=== PATIENT | female | born 2000 | race Caucasian/White ===

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

== ENCOUNTER 2022-01-12 01:12 | Emergency (ER) | payer MEDICAID, SELFPAY ==
[2022-01-12 01:15] VITALS: PULSE 75; RESP 16; TEMP 36.4; O2SAT 98; BMI 38.9
[2022-01-12 01:24] VITALS: BP 124/68; PULSE 75; RESP 16; TEMP 36.4; O2SAT 98
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
--- NOTE | 2022-01-12 02:09 | RAD_ITS ---
EXAM: XR CHEST, 1 VIEW CLINICAL INDICATION: cough TECHNIQUE: Frontal view of the chest. This report was created using [email or web address] report generation technology. COMPARISON: None. FINDINGS: LUNGS AND PLEURAL SPACES: Discoid atelectasis at the periphery of left lower lobe versus scarring. No pneumothorax. No effusion. HEART: Unremarkable. Cardiac silhouette not enlarged. MEDIASTINUM: Central airways and mediastinal contour are unremarkable. BONES/JOINTS: Unremarkable. SOFT TISSUES: Unremarkable. RAD/Chest 1 View (Portable) IMPRESSION: No acute disease. Electronically Signed: Felton Junior MD at 2:35 EST ,
[2022-01-12 03:16] LABS: Mucous, Urine 0 SEEN /hpf (<or=2+); Red Blood Cells-Urine 0 SEEN /hpf (0-5); Squamous Epithelial Cells - UA 0 SEEN /hpf (5-10)
[2022-01-12 03:24] LABS: Color, Urine Yellow (Yellow); Glucose, Dipstick Normal (Normal); Ketone-Dipstick Negative (Negative); Leukocyte Esterase-Dipstick 100 /ul (Negative); Nitrite-Dipstick Negative (Negative); Occult Blood-Urine 25 /ul (Negative); Protein-Dipstick 15 mg/dl (Negative); Urine Bilirubin Dipstick Negative (Negative); Urine Clarity Clear (Clear); Urine Urobilinogen Normal (Normal)
[2022-01-12 03:58] LABS: Bacteria 2+ /hpf (None Seen); White Blood Cells 0-5 SEEN /hpf (0-5)
[2022-01-12 04:51] VITALS: PULSE 78; O2SAT 99
[2022-01-12 06:19] VITALS: BP 114/89; PULSE 74; PULSE 77; RESP 15; RESP 17; TEMP 36.5; O2SAT 98
== END 2022-01-12 23:59 | disposition home or self-care (01) ==
PROVIDERS: Emergency Provider Emergency Medicine; PCP Pediatrics; Visit Provider Emergency Medicine
DX: R53.83 Other fatigue (principal); G82.22 Paraplegia, incomplete; Z93.3 Colostomy status; J02.9 Acute pharyngitis, unspecified; R05.9 Cough, unspecified; Z20.822 Contact with and (suspected) exposure to COVID-19; Z87.891 Personal history of nicotine dependence; S12.9XXS Fracture of neck, unspecified, sequela; V89.2XXS Person injured in unspecified motor-vehicle accident, traffic, sequela
CPT/HCPCS: 71045; 81001; 87077; 87086; 87088; 87186; 87426; 87635; 99284; U0003; U0005

== ENCOUNTER 2022-01-21 14:05 | Emergency (ER) | payer MEDICAID, SELFPAY ==
[2022-01-21 14:09] VITALS: BP 110/52; PULSE 70; RESP 18; TEMP 36.2; BMI 38.0
--- NOTE | 2022-01-21 14:35 | EDS_ITS ---
HPI History of Present Illness Chief Complaint: Abscess Informant: patient Narrative Narrative: Patient states she was sent in by her mother secondary to development of multiple small abscesses over the last week and a half. She states she is first noted a lesion in her left nare a week and a half ago. Since then she has had a small pustule just beneath the right breast and one on either leg that has popped and drained. These are all healing. She has 1 small pustule noted on her right chest. She denies fever or chills. 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 She is not currently on any antibiotics. 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 Neck fracture New onset seizure Paraplegic spinal paralysis Single kidney Urinary tract infection Wounds, multiple Home Medications acetaminophen 650 mg PO Q4H PRN 07/17/21 [History Last Taken Unknown] bnazm-s-hbthzxkjaswin 1 tab PO DAILY 07/17/21 [History Last Taken Unknown] ascorbic acid (vitamin C) 500 mg PO BID 07/17/21 [History Last Taken Unknown] aspirin 81 mg PO DAILY 07/17/21 [History Last Taken Unknown] baclofen 40 mg PO TID 07/17/21 [History Last Taken Unknown] benzocaine-benzethonium 1 spray TOPICAL QWEEK 07/17/21 [History Last Taken Unknown] calcium carbonate-vitamin D3 [Calcium 500 + D] 2 tab PO BID 07/17/21 [History Last Taken Unknown] captopril 3.125 mg PO DAILY PRN PRN 07/17/21 [History Last Taken Unknown] cholecalciferol (vitamin D3) [Vitamin D3] 25 mcg PO DAILY 07/17/21 [History Last Taken Unknown] docusate sodium 100 mg PO TID 07/17/21 [History Last Taken Unknown] enoxaparin 40 mg SUBCUT Q12H 07/17/21 [History Last Taken Unknown] escitalopram oxalate 20 mg PO DAILY 07/17/21 [History Last Taken Unknown] famotidine [Pepcid] 20 mg PO BID 07/17/21 [History Last Taken Unknown] ferrous sulfate 325 mg PO TID 07/17/21 [History Last Taken Unknown] magnesium hydroxide 30 ml PO DAILY PRN 07/17/21 [History Last Taken Unknown] melatonin 6 mg PO QHS PRN PRN 07/17/21 [History Last Taken Unknown] multivitamin with minerals 1 tab PO DAILY 07/17/21 [History Last Taken Unknown] nitroglycerin 1 inch TRANSDERMAL PRN PRN 07/17/21 [History Last Taken Unknown] polyethylene glycol 3350 17 g PO BID 07/17/21 [History Last Taken Unknown] sennosides [senna] 17.2 mg PO BID 07/17/21 [History Last Taken Unknown] tizanidine 4 mg PO TID 07/17/21 [History Last Taken Unknown] zinc sulfate 220 mg PO BID 07/17/21 [History Last Taken Unknown] ondansetron 4 mg PO Q6H PRN PRN #20 tab 09/01/21 [Rx Last Taken Unknown] ciprofloxacin HCl 500 mg PO BID #14 tab 11/07/21 [Rx Last Taken Unknown] doxycycline hyclate 100 mg PO BID #14 cap 11/07/21 [Rx Last Taken Unknown] levetiracetam 750 mg PO BID #60 tab 11/07/21 [Rx Last Taken Unknown] methenamine hippurate [Hiprex] 1 g PO Q12H #180 tab 11/07/21 [Rx Last Taken Unknown] cephalexin 500 mg PO Q6 #40 cap 01/21/22 [Rx Last Taken Unknown] sulfamethoxazole-trimethoprim [Bactrim DS] 1 tab PO BID #20 tab 01/21/22 [Rx Last Taken Unknown] Allergy/AdvReac Type Severity Reaction Status Date / Time No Known Allergies Allergy Verified 11/10/21 21:42 Surgical History H/O thumb surgery S/P cervical spinal fusion Social History household members: family Smoking Status: Former smoker alcohol intake: never substance use type: does not use ROS ROS ED Constitutional Constitutional ED: Denies chills or fever(s) Eyes Eyes: Denies blurry vision or change in vision ENT ENT ED: Denies ear pain Cardiovascular Cardiovascular: Denies chest pain or palpitations Respiratory/Chest Respiratory/Chest: Denies cough or dyspnea Gastrointestinal Gastrointestinal: Denies abdominal pain, diarrhea or vomiting Integumentary Reports abscess Neurologic Neurologic: Denies headache(s) Allergic/Immunologic Allergic/Immunologic ED: Denies urticaria EXAM Physical Exam Const Vital Signs: 01/21/22 14:09 Temperature 97.1 F L Temperature Source Temporal Pulse Rate 70 Respiratory Rate 18 Blood Pressure 110/52 L Blood Pressure Mean 71 Oxygen Delivery Method Room Air Positive well nourished and well developed General Appearance ED: well developed HEENT Reports moist mucous membranes Eyes PERRL and EOMs intact bilaterally Neck supple Chest Wall inspection of chest normal and palpation of chest normal Resp normal respiratory effort and clear to auscultation bilaterally Cardio regular rate and regular rhythm GI non-tender Palpation: soft Narrative: Patient does have some small pressure sores noted on the buttocks. Sacral ulcer wound is healing and well with no sign of acute infection. Neuro oriented x3 Sensorium / Orientation: alert Skin Skin Narrative: Patient with a small 4 mm pustule on the right chest wall. No surrounding cellulitis. Small area of dry skin consistent with healing ulcer noted on either lower leg. No sign of infection. MDM MDM MDM Narrative Medical decision making narrative: Chest wall pustule opened with needle and wound culture sent. Treatment and Re-Evaluation Comments:: Patient be treated with Bactrim and Keflex, first dose is given here. Discharge Plan Triage Chief Complaint: Abscess ED Provider: Bethany Saavedra Dx/Rx/DC Orders Clinical Impression: Abscess Instructions: ED Abscess Antibiotic Treatment Only Prescriptions: New sulfamethoxazole-trimethoprim [Bactrim DS] 800-160 mg tablet 1 tab PO BID Qty: 20 RF: 0 cephalexin 500 mg capsule 500 mg PO Q6 Qty: 40 RF: 0 No Action sennosides [senna] 8.6 mg Tablet 17.2 mg PO BID RF: 0 acetaminophen 325 mg Tablet 650 mg PO Q4H PRN (Reason: pain/fever) RF: 0 polyethylene glycol 3350 17 gram Powder In Packet 17 g PO BID RF: 0 aspirin 81 mg Tablet,Delayed Release (Dr/Ec) 81 mg PO DAILY RF: 0 baclofen 20 mg Tablet 40 mg PO TID RF: 0 magnesium hydroxide 400 mg/5 mL Suspension 30 ml PO DAILY PRN (Reason: Constipation) RF: 0 ascorbic acid (vitamin C) 500 mg Tablet 500 mg PO BID RF: 0 nitroglycerin 2 % Ointment 1 inch TRANSDERMAL PRN PRN (Reason: autonomic dysreflexia) RF: 0 multivitamin with minerals Tablet 1 tab PO DAILY RF: 0 zinc sulfate 220 mg Capsule 220 mg PO BID RF: 0 cholecalciferol (vitamin D3) [Vitamin D3] 25 mcg (1,000 unit) Capsule 25 mcg PO DAILY RF: 0 tizanidine 4 mg Capsule 4 mg PO TID RF: 0 melatonin 12 mg Tablet 6 mg PO QHS PRN PRN (Reason: Insomnia) RF: 0 [id number] Tablet 1 tab PO DAILY RF: 0 famotidine [Pepcid] 20 mg Tablet 20 mg PO BID RF: 0 captopril 12.5 mg Tablet 3.125 mg PO DAILY PRN PRN (Reason: autonomic dysreflexia) RF: 0 docusate sodium 100 mg Capsule 100 mg PO TID RF: 0 ferrous sulfate 325 mg (65 mg iron) Capsule, Extended Release 325 mg PO TID RF: 0 enoxaparin 40 mg/0.4 mL Syringe 40 mg SUBCUT Q12H RF: 0 escitalopram oxalate 20 mg Tablet 20 mg PO DAILY RF: 0 calcium carbonate-vitamin D3 [Calcium 500 + D] 500 mg(1,250mg) -200 unit Tablet 2 tab PO BID RF: 0 benzocaine-benzethonium 20-0.2 % Aerosol 1 spray TOPICAL QWEEK RF: 0 ondansetron 4 MG tablet 4 mg PO Q6H PRN PRN (Reason: Nausea) Qty: 20 RF: 0 ciprofloxacin HCl 500 mg tablet 500 mg PO BID Qty: 14 RF: 0 methenamine hippurate [Hiprex] 1 gram tablet 1 g PO Q12H Qty: 180 RF: 1 doxycycline hyclate 100 mg capsule 100 mg PO BID Qty: 14 RF: 0 levetiracetam 750 mg Tablet 750 mg PO BID Qty: 60 RF: 2 Primary Care Provider: Edgard Amato Referrals: Edgard Amato MD [Primary Care Provider] - 1 Week if not improving Disposition Disposition: Home, Self Care
[2022-01-21] MEDS: Smz/Tmp Ds Tablet 1 TABLET PO (14:47)
[2022-01-21] MEDS: Cephalexin 250 MG Capsule 500 MG PO (14:48)
[2022-01-21 14:49] VITALS: BP 137/63; PULSE 84; RESP 18
--- NOTE | 2022-01-21 15:15 | NURSING ---
CALLED [facility], ETA IS 90 MIN
== END 2022-01-21 17:37 | disposition home or self-care (01) ==
PROVIDERS: Emergency Provider Emergency Medicine; PCP Pediatrics; Visit Provider Emergency Medicine
DX: L08.9 Local infection of the skin and subcutaneous tissue, unspecified (principal); Z93.3 Colostomy status; L89.319 Pressure ulcer of right buttock, unspecified stage; L89.329 Pressure ulcer of left buttock, unspecified stage; L89.159 Pressure ulcer of sacral region, unspecified stage; Z79.82 Long term (current) use of aspirin; Z79.899 Other long term (current) drug therapy; Z87.891 Personal history of nicotine dependence
CPT/HCPCS: 87070; 87077; 87186; 87205; 99285

== ENCOUNTER 2022-03-09 15:26 | Emergency (ER) | payer MEDICAID, SELFPAY ==
[2022-03-09 15:29] VITALS: BP 114/69; PULSE 83; RESP 16; TEMP 36.3; O2SAT 97; BMI 35.2
--- NOTE | 2022-03-09 15:36 | EDS_ITS ---
HPI History of Present Illness Chief Complaint: Ma C/O Informant: patient Onset/Context/Timing Onset: Today Current Severity: Mild Worsened by: nothing Relieved by: nothing Associated Symptoms Associated Symptoms: none Narrative Narrative: Patient presents for bleeding in her Ma catheter site. She is paraplegic and has a chronic indwelling Ma. This was exchanged last week. She also had her last menstrual period last week. She presents from home for bleeding at the catheter site. She has no pain or other complaints. No traumas. No history with bleeding in the past. No trouble with her urine draining. No blood in her urine. 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 Neck fracture New onset seizure Paraplegic spinal paralysis Single kidney Urinary tract infection Wounds, multiple Home Medications acetaminophen 650 mg PO Q4H PRN 07/17/21 [History Last Taken Unknown] ctfsm-k-gannrgavgtyvg 1 tab PO DAILY 07/17/21 [History Last Taken Unknown] ascorbic acid (vitamin C) 500 mg PO BID 07/17/21 [History Last Taken Unknown] aspirin 81 mg PO DAILY 07/17/21 [History Last Taken Unknown] baclofen 40 mg PO TID 07/17/21 [History Last Taken Unknown] benzocaine-benzethonium 1 spray TOPICAL QWEEK 07/17/21 [History Last Taken Unknown] calcium carbonate-vitamin D3 [Calcium 500 + D] 2 tab PO BID 07/17/21 [History Last Taken Unknown] captopril 3.125 mg PO DAILY PRN PRN 07/17/21 [History Last Taken Unknown] cholecalciferol (vitamin D3) [Vitamin D3] 25 mcg PO DAILY 07/17/21 [History Last Taken Unknown] docusate sodium 100 mg PO TID 07/17/21 [History Last Taken Unknown] enoxaparin 40 mg SUBCUT Q12H 07/17/21 [History Last Taken Unknown] escitalopram oxalate 20 mg PO DAILY 07/17/21 [History Last Taken Unknown] famotidine [Pepcid] 20 mg PO BID 07/17/21 [History Last Taken Unknown] ferrous sulfate 325 mg PO TID 07/17/21 [History Last Taken Unknown] magnesium hydroxide 30 ml PO DAILY PRN 07/17/21 [History Last Taken Unknown] melatonin 6 mg PO QHS PRN PRN 07/17/21 [History Last Taken Unknown] multivitamin with minerals 1 tab PO DAILY 07/17/21 [History Last Taken Unknown] nitroglycerin 1 inch TRANSDERMAL PRN PRN 07/17/21 [History Last Taken Unknown] polyethylene glycol 3350 17 g PO BID 07/17/21 [History Last Taken Unknown] sennosides [senna] 17.2 mg PO BID 07/17/21 [History Last Taken Unknown] tizanidine 4 mg PO TID 07/17/21 [History Last Taken Unknown] zinc sulfate 220 mg PO BID 07/17/21 [History Last Taken Unknown] ondansetron 4 mg PO Q6H PRN PRN #20 tab 09/01/21 [Rx Last Taken Unknown] ciprofloxacin HCl 500 mg PO BID #14 tab 11/07/21 [Rx Last Taken Unknown] doxycycline hyclate 100 mg PO BID #14 cap 11/07/21 [Rx Last Taken Unknown] levetiracetam 750 mg PO BID #60 tab 11/07/21 [Rx Last Taken Unknown] methenamine hippurate [Hiprex] 1 g PO Q12H #180 tab 11/07/21 [Rx Last Taken Unknown] cephalexin 500 mg PO Q6 #40 cap 01/21/22 [Rx Last Taken Unknown] sulfamethoxazole-trimethoprim [Bactrim DS] 1 tab PO BID #20 tab 01/21/22 [Rx Las t Taken Unknown] Allergy/AdvReac Type Severity Reaction Status Date / Time No Known Allergies Allergy Verified 11/10/21 21:42 Surgical History H/O thumb surgery S/P cervical spinal fusion Social History household members: family Smoking Status: Former smoker alcohol intake: never substance use type: does not use ROS ROS ED Constitutional Constitutional ED: Denies chills or fever(s) Eyes Eyes: Denies change in vision ENT ENT ED: Denies ear pain Cardiovascular Cardiovascular: Denies chest pain Respiratory/Chest Respiratory/Chest: Denies dyspnea Gastrointestinal Gastrointestinal: Denies abdominal pain, constipation, diarrhea, melena, nausea or vomiting Genitourinary Genitourinary ED: Denies dysuria, hematuria or urinary frequency Musculoskeletal Musculoskeletal: Denies arthralgias or myalgias Integumentary Denies abscess or rash Neurologic Neurologic: Denies headache(s) Psychiatric Psychiatric: Denies depression Endocrine Endocrinology: Denies polyuria Allergic/Immunologic Allergic/Immunologic ED: Denies urticaria EXAM Physical Exam Const Vital Signs: 03/09/22 15:29 Temperature 97.3 F L Temperature Source Temporal Pulse Rate 83 Respiratory Rate 16 Blood Pressure 114/69 Blood Pressure Mean 84 Pulse Ox 97 Oxygen Delivery Method Room Air Positive well nourished and well developed General Appearance ED: well developed HEENT Negative for trauma Eyes EOMs intact bilaterally Neck supple Chest Wall inspection of chest normal Resp normal respiratory effort Cardio regular rate GI normal to inspection, nondistended, normoactive bowel sounds Narrative: Chaperoned by Reyna and Liat RNs. Ma catheter is in place and appears normal, clean, dry, intact, there is no bleeding or discharge at the ureteral meatus. She does have some mild vaginal bleeding noted. Otherwise exam is unremarkable. Back/Spine no CVA tenderness Extremity normal to inspection Extremity Narrative: Spastic and rigid bilaterally Neuro oriented x3 Sensorium / Orientation: alert Skin no rashes or lesions noted MDM MDM MDM Narrative Medical decision making narrative: hCG test was negative. Urinalysis showed white cells but 0-5 red cells. I believe the bleeding is exclusively vaginal. It all started today. It does not seem to be excessive bleeding. The patient has normal vital signs. I do not believe there is any indication for further emergent diagnostic testing. If the patient has continued bleeding, increasing bleeding, or any other new or worsening issues, she will follow-up with the ER or PCP. Her urine did show 25-50 white cells, negative nitrites. This is what her urinalysis typically shows. She does not feel it is an infection. No fevers. No pain. We will send a culture but will not start antibiotics at this time. She will follow-up. Impression #1 vaginal bleeding Impression #2 chronic indwelling Ma catheter Disposition is discharged home. Lab Data Attestation: I reviewed the patient's lab results. Labs: Laboratory Results - last 24 hr 03/09/22 16:43 Urine Color Yellow Urine Clarity Cloudy Urine pH 6.0 Ur Specific [place] 1.025 Urine Protein 30 H Urine Glucose (UA) Normal Urine Ketones 5 H Urine Occult Blood 50 H Urine Nitrite Negative Urine Bilirubin Negative Urine Urobilinogen Normal Ur Leukocyte Esterase 500 H Urine RBC 0-5 SEEN Urine WBC 25-50 SEEN Ur Squamous Epith Cells 0 SEEN Calcium Oxalate Crystal RARE Urine Bacteria 1+ Urine Mucus 0 SEEN Urine Test Negative Discharge Plan Triage Chief Complaint: Ma C/O ED Provider: Morris Blanchard Dx/Rx/DC Orders Instructions: ED Dysfunctional Uterine Bleeding Prescriptions: No Action sennosides [senna] 8.6 mg Tablet 17.2 mg PO BID RF: 0 acetaminophen 325 mg Tablet 650 mg PO Q4H PRN (Reason: pain/fever) RF: 0 polyethylene glycol 3350 17 gram Powder In Packet 17 g PO BID RF: 0 aspirin 81 mg Tablet,Delayed Release (Dr/Ec) 81 mg PO DAILY RF: 0 baclofen 20 mg Tablet 40 mg PO TID RF: 0 magnesium hydroxide 400 mg/5 mL Suspension 30 ml PO DAILY PRN (Reason: Constipation) RF: 0 ascorbic acid (vitamin C) 500 mg Tablet 500 mg PO BID RF: 0 nitroglycerin 2 % Ointment 1 inch TRANSDERMAL PRN PRN (Reason: autonomic dysreflexia) RF: 0 multivitamin with minerals Tablet 1 tab PO DAILY RF: 0 zinc sulfate 220 mg Capsule 220 mg PO BID RF: 0 cholecalciferol (vitamin D3) [Vitamin D3] 25 mcg (1,000 unit) Capsule 25 mcg PO DAILY RF: 0 tizanidine 4 mg Capsule 4 mg PO TID RF: 0 melatonin 12 mg Tablet 6 mg PO QHS PRN PRN (Reason: Insomnia) RF: 0 [id number]-[id number] Tablet 1 tab PO DAILY RF: 0 famotidine [Pepcid] 20 mg Tablet 20 mg PO BID RF: 0 captopril 12.5 mg Tablet 3.125 mg PO DAILY PRN PRN (Reason: autonomic dysreflexia) RF: 0 docusate sodium 100 mg Capsule 100 mg PO TID RF: 0 ferrous sulfate 325 mg (65 mg iron) Capsule, Extended Release 325 mg PO TID RF: 0 enoxaparin 40 mg/0.4 mL Syringe 40 mg SUBCUT Q12H RF: 0 escitalopram oxalate 20 mg Tablet 20 mg PO DAILY RF: 0 calcium carbonate-vitamin D3 [Calcium 500 + D] 500 mg(1,250mg) -200 unit T ablet 2 tab PO BID RF: 0 benzocaine-benzethonium 20-0.2 % Aerosol 1 spray TOPICAL QWEEK RF: 0 ondansetron 4 MG tablet 4 mg PO Q6H PRN PRN (Reason: Nausea) Qty: 20 RF: 0 ciprofloxacin HCl 500 mg tablet 500 mg PO BID Qty: 14 RF: 0 methenamine hippurate [Hiprex] 1 gram tablet 1 g PO Q12H Qty: 180 RF: 1 doxycycline hyclate 100 mg capsule 100 mg PO BID Qty: 14 RF: 0 levetiracetam 750 mg Tablet 750 mg PO BID Qty: 60 RF: 2 sulfamethoxazole-trimethoprim [Bactrim DS] 800-160 mg tablet 1 tab PO BID Qty: 20 RF: 0 cephalexin 500 mg capsule 500 mg PO Q6 Qty: 40 RF: 0 Primary Care Provider: Edgard Amato Referrals: Edgard Amato MD [Primary Care Provider] - Disposition Disposition: Home, Self Care
[2022-03-09 16:47] LABS: Mucous, Urine 0 SEEN /hpf (<or=2+); Squamous Epithelial Cells - UA 0 SEEN /hpf (5-10)
[2022-03-09 16:50] LABS: Color, Urine Yellow (Yellow); Glucose, Dipstick Normal (Normal); Ketone-Dipstick 5 mg/dl (Negative); Leukocyte Esterase-Dipstick 500 /ul (Negative); Nitrite-Dipstick Negative (Negative); Occult Blood-Urine 50 /ul (Negative); Protein-Dipstick 30 mg/dl (Negative); Specific Gravity, Urine 1.025 (1.002-1.030); Urine Bilirubin Dipstick Negative (Negative); Urine Clarity Cloudy (Clear); Urine Urobilinogen Normal (Normal)
[2022-03-09 16:53] LABS: Internal QC Validated? YES +Cl - CLEAR BKGD; Pregnancy, Urine Negative Negative
[2022-03-09 17:05] LABS: White Blood Cells 25-50 SEEN /hpf (0-5)
[2022-03-09 17:06] LABS: Calcium Oxalate Crystals Ur RARE /hpf (<or=2+); Red Blood Cells-Urine 0-5 SEEN /hpf (0-5)
[2022-03-09 17:07] LABS: Bacteria 1+ /hpf (None Seen)
[2022-03-09 17:46] VITALS: PULSE 85; RESP 17; O2SAT 98
== END 2022-03-09 18:31 | disposition home or self-care (01) ==
PROVIDERS: Emergency Provider Emergency Medicine; PCP Pediatrics; Visit Provider Emergency Medicine
DX: N93.9 Abnormal uterine and vaginal bleeding, unspecified (principal); G82.20 Paraplegia, unspecified; Z93.3 Colostomy status; Z79.01 Long term (current) use of anticoagulants; Z79.82 Long term (current) use of aspirin; Z79.899 Other long term (current) drug therapy; Z87.891 Personal history of nicotine dependence
CPT/HCPCS: 51702; 81001; 81025; 87077; 87086; 87088; 87186; 99285

== ENCOUNTER 2022-04-17 23:07 | Emergency (ER) | payer MEDICAID, SELFPAY ==
[2022-04-17 23:07] VITALS: BP 110/61; PULSE 84; RESP 16; TEMP 36.4; O2SAT 98; BMI 39.1
--- NOTE | 2022-04-17 23:11 | EDS_ITS ---
HPI History of Present Illness Chief Complaint: Rash Informant: patient Narrative Narrative: 21-year-old female paraplegic is presenting to the emergency room for rash. She states that she had a similar rash on her chest last month that turned into an abscess that needed to be drained. She notes that she chronically has small bumps on her arms and her legs. There are a few that are turning into pimples that she describes on the right leg. 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 Neck fracture New onset seizure Paraplegic spinal paralysis Single kidney Urinary tract infection Wounds, multiple Home Medications acetaminophen 650 mg PO Q4H PRN 07/17/21 [History Last Taken Unknown] [id number]-n-[id number] 1 tab PO DAILY 07/17/21 [History Last Taken Unknown] ascorbic acid (vitamin C) 500 mg PO BID 07/17/21 [History Last Taken Unknown] aspirin 81 mg PO DAILY 07/17/21 [History Last Taken Unknown] baclofen 40 mg PO TID 07/17/21 [History Last Taken Unknown] benzocaine-benzethonium 1 spray TOPICAL QWEEK 07/17/21 [History Last Taken Unk nown] calcium carbonate-vitamin D3 [Calcium 500 + D] 2 tab PO BID 07/17/21 [History Last Taken Unknown] captopril 3.125 mg PO DAILY PRN PRN 07/17/21 [History Last Taken Unknown] cholecalciferol (vitamin D3) [Vitamin D3] 25 mcg PO DAILY 07/17/21 [History Last Taken Unknown] docusate sodium 100 mg PO TID 07/17/21 [History Last Taken Unknown] enoxaparin 40 mg SUBCUT Q12H 07/17/21 [History Last Taken Unknown] escitalopram oxalate 20 mg PO DAILY 07/17/21 [History Last Taken Unknown] famotidine [Pepcid] 20 mg PO BID 07/17/21 [History Last Taken Unknown] ferrous sulfate 325 mg PO TID 07/17/21 [History Last Taken Unknown] magnesium hydroxide 30 ml PO DAILY PRN 07/17/21 [History Last Taken Unknown] melatonin 6 mg PO QHS PRN PRN 07/17/21 [History Last Taken Unknown] multivitamin with minerals 1 tab PO DAILY 07/17/21 [History Last Taken Unknown] nitroglycerin 1 inch TRANSDERMAL PRN PRN 07/17/21 [History Last Taken Unknown] polyethylene glycol 3350 17 g PO BID 07/17/21 [History Last Taken Unknown] sennosides [senna] 17.2 mg PO BID 07/17/21 [History Last Taken Unknown] tizanidine 4 mg PO TID 07/17/21 [History Last Taken Unknown] zinc sulfate 220 mg PO BID 07/17/21 [History Last Taken Unknown] ondansetron 4 mg PO Q6H PRN PRN #20 tab 09/01/21 [Rx Last Taken Unknown] ciprofloxacin HCl 500 mg PO BID #14 tab 11/07/21 [Rx Last Taken Unknown] doxycycline hyclate 100 mg PO BID #14 cap 11/07/21 [Rx Last Taken Unknown] levetiracetam 750 mg PO BID #60 tab 11/07/21 [Rx Last Taken Unknown] methenamine hippurate [Hiprex] 1 g PO Q12H #180 tab 11/07/21 [Rx Last Taken Unknown] cephalexin 500 mg PO Q6 #40 cap 01/21/22 [Rx Last Taken Unknown] sulfamethoxazole-trimethoprim [Bactrim DS] 1 tab PO BID #20 tab 01/21/22 [Rx Last Taken Unknown] cephalexin 500 mg PO Q6 #40 capsule 04/17/22 [Rx Last Taken Unknown] sulfamethoxazole-trimethoprim [Bactrim DS] 1 tab PO BID #20 tab 04/17/22 [Rx Last Taken Unknown] Allergy/AdvReac Type Severity Reaction Status Date / Time No Known Allergies Allergy Verified 04/17/22 23:09 Surgical History H/O thumb surgery S/P cervical spinal fusion Social History household members: family Smoking Status: Former smoker alcohol intake: never substance use type: does not use ROS ROS ED Constitutional Constitutional ED: Denies chills or weight loss Eyes Eyes: Denies change in vision or diplopia ENT ENT ED: Denies ear pain, rhinorrhea or sore throat Cardiovascular Cardiovascular: Denies chest pain, orthopnea, palpitations or racing heartbeat Respiratory/Chest Respiratory/Chest: Denies cough, dyspnea or orthopnea Gastrointestinal Gastrointestinal: Denies abdominal pain, diarrhea, nausea or vomiting Genitourinary Genitourinary ED: Denies dysuria, hematuria or urinary frequency Musculoskeletal Musculoskeletal: Denies arthralgias or myalgias Integumentary Reports rash; Denies abscess Neurologic Neurologic: Denies headache(s) or weakness Psychiatric Psychiatric: Denies anxiety, depression, suicidal ideation or suicidal thoughts Endocrine Endocrinology: Denies polydipsia, polyphagia or polyuria Allergic/Immunologic Allergic/Immunologic ED: Denies mouth swelling, tongue swelling or urticaria EXAM Physical Exam Const Vital Signs: 04/17/22 23:07 Temperature 97.6 F L Temperature Source Temporal Pulse Rate 84 Respiratory Rate 16 Blood Pressure 110/61 Blood Pressure Mean 77 Pulse Ox 98 Oxygen Delivery Method Room Air Positive well nourished and well developed General Appearance ED: well developed HEENT Reports normocephalic, head/scalp atraumatic, TM's clear and moist mucous membranes Negative for trauma Tympanic Membrane ED: Yes TM's clear Eyes PERRL and EOMs intact bilaterally Neck no lymphadenopathy, supple and no JVD Resp normal respiratory effort and clear to auscultation bilaterally Cardio regular rate, regular rhythm and no murmurs GI normal to inspection, nondistended, normoactive bowel sounds and non-tender Palpation: soft Back/Spine no CVA tenderness and normal ROM Extremity normal to inspection General Extremety ED: Negative for edema General Extremity: Negative for edema Neuro oriented x3 and CN's II-XII intact bilaterally Sensorium / Orientation: alert Psych mental status grossly normal Mood & Affect: Negative for depressed or tearful Skin no wounds Skin Narrative: Patient has changes of the skin similar to keratosis pilaris and there are approximately 4 small pustules with hair coming out of them representing folliculitis. MDM MDM MDM Narrative Medical decision making narrative: Because of the reported history of presumed MRSA going to write both Keflex and Bactrim. We talked about using a exfoliator at bath time and hydrating the skin with lotion. Return if worsening or concerns Discharge Plan Triage Chief Complaint: Rash ED Provider: Morris Wiggins Dx/Rx/DC Orders Clinical Impression: Keratosis pilaris, Folliculitis Instructions: ED Folliculitis Prescriptions: New sulfamethoxazole-trimethoprim [Bactrim DS] 800-160 mg tablet 1 tab PO BID Qty: 20 RF: 0 cephalexin [cephalexin] 500 MG capsule 500 mg PO Q6 Qty: 40 RF: 0 No Action sennosides [senna] 8.6 mg Tablet 17.2 mg PO BID RF: 0 acetaminophen 325 mg Tablet 650 mg PO Q4H PRN (Reason: pain/fever) RF: 0 polyethylene glycol 3350 17 gram Powder In Packet 17 g PO BID RF: 0 aspirin 81 mg Tablet,Delayed Release (Dr/Ec) 81 mg PO DAILY RF: 0 baclofen 20 mg Tablet 40 mg PO TID RF: 0 magnesium hydroxide 400 mg/5 mL Suspension 30 ml PO DAILY PRN (Reason: Constipation) RF: 0 ascorbic acid (vitamin C) 500 mg Tablet 500 mg PO BID RF: 0 nitroglycerin 2 % Ointment 1 inch TRANSDERMAL PRN PRN (Reason: autonomic dysreflexia) RF: 0 multivitamin with minerals Tablet 1 tab PO DAILY RF: 0 zinc sulfate 220 mg Capsule 220 mg PO BID RF: 0 cholecalciferol (vitamin D3) [Vitamin D3] 25 mcg (1,000 unit) Capsule 25 mcg PO DAILY RF: 0 tizanidine 4 mg Capsule 4 mg PO TID RF: 0 melatonin 12 mg Tablet 6 mg PO QHS PRN PRN (Reason: Insomnia) RF: 0 hsfcm-c-fugsbmtybqifs Tablet 1 tab PO DAILY RF: 0 famotidine [Pepcid] 20 mg Tablet 20 mg PO BID RF: 0 captopril 12.5 mg Tablet 3.125 mg PO DAILY PRN PRN (Reason: autonomic dysreflexia) RF: 0 docusate sodium 100 mg Capsule 100 mg PO TID RF: 0 ferrous sulfate 325 mg (65 mg iron) Capsule, Extended Release 325 mg PO TID RF: 0 enoxaparin 40 mg/0.4 mL Syringe 40 mg SUBCUT Q12H RF: 0 escitalopram oxalate 20 mg Tablet 20 mg PO DAILY RF: 0 calcium carbonate-vitamin D3 [Calcium 500 + D] 500 mg(1,250mg) -200 unit Tablet 2 tab PO BID RF: 0 benzocaine-benzethonium 20-0.2 % Aerosol 1 spray TOPICAL QWEEK RF: 0 ondansetron 4 MG tablet 4 mg PO Q6H PRN PRN (Reason: Nausea) Qty: 20 RF: 0 ciprofloxacin HCl 500 mg tablet 500 mg PO BID Qty: 14 RF: 0 methenamine hippurate [Hiprex] 1 gram tablet 1 g PO Q12H Qty: 180 RF: 1 doxycycline hyclate 100 mg capsule 100 mg PO BID Qty: 14 RF: 0 levetiracetam 750 mg Tablet 750 mg PO BID Qty: 60 RF: 2 sulfamethoxazole-trimethoprim [Bactrim DS] 800-160 mg tablet 1 tab PO BID Qty: 20 RF: 0 cephalexin 500 mg capsule 500 mg PO Q6 Qty: 40 RF: 0 Primary Care Provider: Edgard Amato Referrals: Edgard Amato MD [Primary Care Provider] - As Needed Activity Restrictions/Additional Instructions: As discussed using an exfoliate her scrub on your arms and legs and aggressive moisturizing may help. Disposition Disposition: Home, Self Care
[2022-04-17 23:17] VITALS: BP 110/61; PULSE 84; RESP 16; O2SAT 98
[2022-04-17] MEDS: Smz/Tmp Ds Tablet 1 TABLET PO (23:37)
[2022-04-17] MEDS: Cephalexin 250 MG Capsule 500 MG PO (23:37)
== END 2022-04-18 03:42 | disposition home or self-care (01) ==
LOC: ED 23:21
PROVIDERS: Emergency Provider Emergency Medicine; PCP Pediatrics; Visit Provider Emergency Medicine
DX: L85.8 Other specified epidermal thickening (principal); G82.20 Paraplegia, unspecified; Z93.3 Colostomy status; L73.9 Follicular disorder, unspecified; Z79.82 Long term (current) use of aspirin; Z79.899 Other long term (current) drug therapy; Z87.891 Personal history of nicotine dependence
CPT/HCPCS: 99285

== ENCOUNTER 2022-04-27 18:05 | Emergency (ER) | payer MEDICAID, SELFPAY ==
[2022-04-27 18:06] VITALS: BP 101/73; PULSE 85; RESP 18; TEMP 37; O2SAT 99; BMI 37.8
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
[2022-04-27] MEDS: Ondansetron 4 MG/2 ML Vial IV (19:10)
[2022-04-27 19:14] LABS: Absolute Lymphocyte Count 1.92 X10^3/uL (0.83-4.51); Absolute Neutrophil Count 4.1 X10^3/uL (2.0-7.7); Basophil# 0.02 X10^3/uL; Basophil% 0.3 % (0-1); Eosinophil# 0.11 X10^3/uL; Eosinophils% 1.7 % (0-5); Hemoglobin 12.7 g/dL (12.0-15.0); Lymphocyte # 1.92 X10^3/ul (0.83-4.51); Lymphocyte % 29.6 % (19-41); Mean Corp Hgb Conc 32.6 g/dL (32-36); Mean Corpuscular Hgb 28.9 pg (27.0-32.0); Mean Corpuscular Volume 88.8 fL (81-99); Mean Platelet Vol. 10.5 fl (6.2-12.0); Monocyte# 0.31 X10^3/uL; Monocyte% 4.8 % (0-10); NRBC Flagged by Analyzer 0 % (0-5); Neutrophil % 63.3 % (47-70); Platelet Count 285 K/mm3 (150-450); RBC Distribution Width CV 13.9 % (11.6-14.6); RBC Distribution Width SD 45.2 fl (35.1-43.9); Red Blood Count 4.39 M/mm3 (4.2-5.4); White Blood Count 6.5 K/mm3 (4.4-11.0)
--- NOTE | 2022-04-27 19:18 | NURSING ---
gross bag changed for clean urine sample
[2022-04-27 19:44] LABS: ALB/GLOB Ratio 0.8 RATIO (0.9-2.4); AST(SGOT) 26 U/L (15-37); Alanine Aminotransfer ALT/SGPT 26 U/L (13-56); Albumin, Serum 3.4 g/dL (3.2-5.0); Alkaline Phosphatase 85 U/L (45-117); Anion Gap 5 (5-15); BUN 12 mg/dL (7-18); BUN/Creat Ratio 12.7 RATIO (10-20); Calcium,Total 9.4 mg/dL (8.5-10.1); Chloride 108 mmol/L (98-107); Creatinine, Serum 0.95 mg/dL (0.55-1.02); EST Glomerular Filtration Rate 81 mL/min (>60); Est Glom Filt Rate - Afr Amer 98 mL/min (>60); Estimated Creatinine Clearance 89.17 ml/min; Globulin 4.1 g/dL (2.2-4.2); Glucose 95 mg/dL (74-106); Potassium 5.2 mmol/L (3.5-5.1); Protein, Total 7.5 g/dL (6.4-8.2); Sodium Level 138 mmol/L (136-145)
[2022-04-27 20:06] VITALS: RESP 18; O2SAT 96
[2022-04-27 20:40] LABS: Mucous, Urine 0 SEEN /hpf (<or=2+); Squamous Epithelial Cells - UA 0 SEEN /hpf (5-10)
[2022-04-27 20:53] LABS: Color, Urine Yellow (Yellow); Glucose, Dipstick Normal (Normal); Ketone-Dipstick 5 mg/dl (Negative); Leukocyte Esterase-Dipstick 100 /ul (Negative); Nitrite-Dipstick Negative (Negative); Occult Blood-Urine 250 /ul (Negative); Protein-Dipstick 30 mg/dl (Negative); Urine Bilirubin Dipstick Negative (Negative); Urine Clarity Clear (Clear); Urine Urobilinogen Normal (Normal)
[2022-04-27 20:56] LABS: Bacteria 1+ /hpf (None Seen); Internal QC Validated? YES +Cl - CLEAR BKGD; Pregnancy, Urine Negative Negative; Red Blood Cells-Urine 25-50 SEEN /hpf (0-5); White Blood Cells 5-10 SEEN /hpf (0-5)
[2022-04-27 21:08] LABS: Amphetamine Urine VISTA NEGATIVE (<1000 ng/mL); Barbiturate Urine VISTA NEGATIVE (< 200 ng/mL); Benzodiazepine Urine VISTA NEGATIVE (< 200 ng/mL); Cocaine Urine VISTA NEGATIVE (< 300 ng/mL); Ecstacy Urine VISTA NEGATIVE (< 500 ng/mL); Methadone Urine VISTA NEGATIVE (< 300 ng/mL); PCP Urine VISTA NEGATIVE (< 25 ng/mL); THC Urine VISTA NEGATIVE (< 50 ng/mL); Vista UDS pH Range 7
[2022-04-27 22:27] VITALS: BP 97/70; PULSE 77; RESP 16; O2SAT 97
== END 2022-04-28 01:32 | disposition home or self-care (01) ==
PROVIDERS: Emergency Provider Student in an Organized Health Care Education/Training Program; PCP Pediatrics; Visit Provider Student in an Organized Health Care Education/Training Program
DX: G47.00 Insomnia, unspecified (principal); G82.20 Paraplegia, unspecified; R11.0 Nausea; Z87.891 Personal history of nicotine dependence
CPT/HCPCS: 80053; 80307; 81001; 81025; 85025; 96361; 96374; 99285; J7030; A4216; J2405

== ENCOUNTER 2022-05-05 03:56 | Emergency (ER) | payer MEDICAID, SELFPAY ==
[2022-05-05 03:57] VITALS: BP 145/87; PULSE 72; TEMP 38.3; O2SAT 98; BMI 38.9
[2022-05-05 04:02] VITALS: BP 145/87; PULSE 65; RESP 18; TEMP 38.3; O2SAT 98
--- NOTE | 2022-05-05 04:30 | EX.ED.DYSGE1 ---
HPI History of Present Illness Chief Complaint: General Illness Informant: patient Onset/Context/Timing Onset: Today Context: Sudden Onset Timing: Continuous Quality: Pounding Location: Generalized Worsened by: Nothing Relieved by: Nothing Narrative Narrative: Patient presents with headache, nausea, and vomiting that began approximately 2 hours prior to arrival. Patient states her headache is generalized. Patient describes it as pounding. Patient admits to some nausea and vomiting with headache. Patient denies any visual changes or photophobia. Patient states nothing makes it better nothing makes it worse. Patient states she was told by EMS she had a fever. Patient denies any neck pain. 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 Neck fracture New onset seizure Paraplegic spinal paralysis Single kidney Urinary tract infection Wounds, multiple Home Medications acetaminophen 650 mg PO Q4H PRN 07/17/21 [History Last Taken Unknown] xpggy-n-cjmxclhvabfys 1 tab PO DAILY 07/17/21 [History Last Taken Unknown] ascorbic acid (vitamin C) 500 mg PO BID 07/17/21 [History Last Taken Unknown] aspirin 81 mg PO DAILY 07/17/21 [History Last Taken Unknown] baclofen 40 mg PO TID 07/17/21 [History Last Taken Unknown] benzocaine-benzethonium 1 spray TOPICAL QWEEK 07/17/21 [History Last Taken Unknown] calcium carbonate-vitamin D3 [Calcium 500 + D] 2 tab PO BID 07/17/21 [History Last Taken Unknown] captopril 3.125 mg PO DAILY PRN PRN 07/17/21 [History Last Taken Unknown] cholecalciferol (vitamin D3) [Vitamin D3] 25 mcg PO DAILY 07/17/21 [History Last Taken Unknown] docusate sodium 100 mg PO TID 07/17/21 [History Last Taken Unknown] enoxaparin 40 mg SUBCUT Q12H 07/17/21 [History Last Taken Unknown] escitalopram oxalate 20 mg PO DAILY 07/17/21 [History Last Taken Unknown] famotidine [Pepcid] 20 mg PO BID 07/17/21 [History Last Taken Unknown] ferrous sulfate 325 mg PO TID 07/17/21 [History Last Taken Unknown] magnesium hydroxide 30 ml PO DAILY PRN 07/17/21 [History Last Taken Unknown] melatonin 6 mg PO QHS PRN PRN 07/17/21 [History Last Taken Unknown] multivitamin with minerals 1 tab PO DAILY 07/17/21 [History Last Taken Unknown] nitroglycerin 1 inch TRANSDERMAL PRN PRN 07/17/21 [History Last Taken Unknown] polyethylene glycol 3350 17 g PO BID 07/17/21 [History Last Taken Unknown] sennosides [senna] 17.2 mg PO BID 07/17/21 [History Last Taken Unknown] tizanidine 4 mg PO TID 07/17/21 [History Last Taken Unknown] zinc sulfate 220 mg PO BID 07/17/21 [History Last Taken Unknown] ondansetron 4 mg PO Q6H PRN PRN #20 tab 09/01/21 [Rx Last Taken Unknown] ciprofloxacin HCl 500 mg PO BID #14 tab 11/07/21 [Rx Last Taken Unknown] doxycycline hyclate 100 mg PO BID #14 cap 11/07/21 [Rx Last Taken Unknown] levetiracetam 750 mg PO BID #60 tab 11/07/21 [Rx Last Taken Unknown] methenamine hippurate [Hiprex] 1 g PO Q12H #180 tab 11/07/21 [Rx Last Taken Unknown] cephalexin 500 mg PO Q6 #40 cap 01/21/22 [Rx Last Taken Unknown] sulfamethoxazole-trimethoprim [Bactrim DS] 1 tab PO BID #20 tab 01/21/22 [Rx Last Taken Unknown] cephalexin 500 mg PO Q6 #40 capsule 04/17/22 [Rx Last Taken Unknown] sulfamethoxazole-trimethoprim [Bactrim DS] 1 tab PO BID #20 tab 04/17/22 [Rx Last Taken Unknown] hydroxyzine pamoate [Vistaril] 25 mg PO QHS PRN #10 cap 04/27/22 [Rx Last Taken Unknown] Allergy/AdvReac Type Severity Reaction Status Date / Time No Known Allergies Allergy Verified 04/17/22 23:09 Surgical History H/O thumb surgery S/P cervical spinal fusion Social History household members: family Smoking Status: Former smoker alcohol intake: never substance use type: does not use ROS ROS ED Constitutional Constitutional ED: Reports fever(s); Denies chills Eyes Eyes: Denies blurry vision or change in vision ENT ENT ED: Denies rhinorrhea or sore throat Cardiovascular Cardiovascular: Denies chest pain or palpitations Respiratory/Chest Respiratory/Chest: Denies cough or dyspnea Gastrointestinal Gastrointestinal: Reports nausea and vomiting Genitourinary Genitourinary ED: Denies dysuria or hematuria Musculoskeletal Musculoskeletal: Denies back pain or neck pain Integumentary Denies abscess or rash Neurologic Neurologic: Reports headache(s); Denies weakness Allergic/Immunologic Allergic/Immunologic ED: Denies mouth swelling or urticaria EXAM Physical Exam Const Vital Signs: 05/05/22 03:57 05/05/22 04:02 05/05/22 04:03 Temperature 101 F H 101 F H Temperature Source Temporal Temporal Pulse Rate 72 65 Respiratory Rate 18 Respiratory Effort Normal Respiratory Pattern Normal Blood Pressure 145/87 H 145/87 H Blood Pressure Mean 106 106 Pulse Ox 98 98 Oxygen Delivery Method Room Air Room Air 05/05/22 06:00 Temperature Temperature Source Pulse Rate 72 Respiratory Rate 18 Respiratory Effort Respiratory Pattern Blood Pressure 175/100 H Blood Pressure Mean 125 Pulse Ox 99 Oxygen Delivery Method Room Air Positive well nourished, well developed, obese and unkempt General Appearance ED: unkempt, well developed and NAD Nutritional Appearance: obese HEENT Reports moist mucous membranes Resp normal respiratory effort and clear to auscultation bilaterally Cardio regular rate and regular rhythm GI non-tender Palpation: soft Neuro oriented x3, CN's II-XII intact bilaterally and no sensory deficits noted Sensorium / Orientation: alert Motor Exam: strength 5/5 throughout Psych mental status grossly normal Appearance: unkempt MDM MDM MDM Narrative Medical decision making narrative: Patient was given IV fluids, Reglan, and Benadryl. CT scan of the brain was obtained. There is no acute intracranial abnormality. This was interpreted by the radiologist and reviewed by myself. CBC was within normal limits. Basic metabolic profile was within normal limits. Urinalysis does not show any evidence of urinary tract infection or hematuria. Patient was feeling better on reevaluation. Patient was advised of her findings. Patient was instructed to follow-up with her primary care physician in 3 to 5 days for reevaluation. Patient understood and was agreeable with the plan. All questions were answered. Lab Data Attestation: I reviewed the patient's lab results. Labs: Laboratory Results - last 24 hr 05/05/22 05/05/22 05/05/22 03:12 03:12 06:53 WBC 8.1 RBC 4.99 Hgb 14.3 Hct 44.9 MCV 90.0 MCH 28.7 MCHC 31.8 L RDW Std Deviation 46.7 H RDW Coeff of Anurag 14.2 Plt Count 301 MPV 10.5 Immature Gran % (Auto) 0.400 Neut % (Auto) 54.8 Lymph % (Auto) 36.6 Glenn % (Auto) 5.6 Eos % (Auto) 2.1 Baso % (Auto) 0.5 Absolute Neuts (auto) 4.4 Absolute Lymphs (auto) 2.96 Nucleated RBC % 0 Sodium 141 Potassium 3.5 Chloride 107 Carbon Dioxide 27.0 Anion Gap 7 BUN 14 Creatinine 0.89 Estim Creat Clear Calc 95.18 Est GFR (MDRD) Af Amer 105 Est GFR (MDRD) Non-Af 87 BUN/Creatinine Ratio 15.8 Glucose 99 Calcium 9.6 Urine Color Yellow Urine Clarity Clear Urine pH 6.0 Ur Specific [place] 1.020 Urine Protein 500 H Urine Glucose (UA) Normal Urine Ketones Negative Urine Occult Blood 10 H Urine Nitrite Negative Urine Bilirubin Negative Urine Urobilinogen Normal Ur Leukocyte Esterase Negative Urine RBC 0 SEEN Urine WBC 0-5 SEEN Ur Squamous Epith Cells 0 SEEN Urine Bacteria 0 SEEN Urine Mucus 0 SEEN Radiography Diagnostic Testing: Clinical Impression(s) from Imaging Studies Brain CT 05/05/22 04:33 IMPRESSION: Negative. No significant interval change. No acute intracranial abnormality. Electronically Signed: Chaparro Carrillo MD at 5:59 EDT , Discharge Plan Triage Chief Complaint: General Illness ED Provider: Lele Aquino Dx/Rx/DC Orders Clinical Impression: Headache, Nausea and vomiting Instructions: Understanding Headache Pain, ED Vomiting (Adult) Prescriptions: No Action sennosides [senna] 8.6 mg Tablet 17.2 mg PO BID RF: 0 acetaminophen 325 mg Tablet 650 mg PO Q4H PRN (Reason: pain/fever) RF: 0 polyethylene glycol 3350 17 gram Powder In Packet 17 g PO BID RF: 0 aspirin 81 mg Tablet,Delayed Release (Dr/Ec) 81 mg PO DAILY RF: 0 baclofen 20 mg Tablet 40 mg PO TID RF: 0 magnesium hydroxide 400 mg/5 mL Suspension 30 ml PO DAILY PRN (Reason: Constipation) RF: 0 ascorbic acid (vitamin C) 500 mg Tablet 500 mg PO BID RF: 0 nitroglycerin 2 % Ointment 1 inch TRANSDERMAL PRN PRN (Reason: autonomic dysreflexia) RF: 0 multivitamin with minerals Tablet 1 tab PO DAILY RF: 0 zinc sulfate 220 mg Capsule 220 mg PO BID RF: 0 cholecalciferol (vitamin D3) [Vitamin D3] 25 mcg (1,000 unit) Capsule 25 mcg PO DAILY RF: 0 tizanidine 4 mg Capsule 4 mg PO TID RF: 0 melatonin 12 mg Tablet 6 mg PO QHS PRN PRN (Reason: Insomnia) RF: 0 [id number] Tablet 1 tab PO DAILY RF: 0 famotidine [Pepcid] 20 mg Tablet 20 mg PO BID RF: 0 captopril 12.5 mg Tablet 3.125 mg PO DAILY PRN PRN (Reason: autonomic dysreflexia) RF: 0 docusate sodium 100 mg Capsule 100 mg PO TID RF: 0 ferrous sulfate 325 mg (65 mg iron) Capsule, Extended Release 325 mg PO TID RF: 0 enoxaparin 40 mg/0.4 mL Syringe 40 mg SUBCUT Q12H RF: 0 escitalopram oxalate 20 mg Tablet 20 mg PO DAILY RF: 0 calcium carbonate-vitamin D3 [Calcium 500 + D] 500 mg(1,250mg) -200 unit Tablet 2 tab PO BID RF: 0 benzocaine-benzethonium 20-0.2 % Aerosol 1 spray TOPICAL QWEEK RF: 0 ondansetron 4 MG tablet 4 mg PO Q6H PRN PRN (Reason: Nausea) Qty: 20 RF: 0 ciprofloxacin HCl 500 mg tablet 500 mg PO BID Qty: 14 RF: 0 methenamine hippurate [Hiprex] 1 gram tablet 1 g PO Q12H Qty: 180 RF: 1 doxycycline hyclate 100 mg capsule 100 mg PO BID Qty: 14 RF: 0 levetiracetam 750 mg Tablet 750 mg PO BID Qty: 60 RF: 2 sulfamethoxazole-trimethoprim [Bactrim DS] 800-160 mg tablet 1 tab PO BID Qty: 20 RF: 0 cephalexin 500 mg capsule 500 mg PO Q6 Qty: 40 RF: 0 sulfamethoxazole-trimethoprim [Bactrim DS] 800-160 mg tablet 1 tab PO BID Qty: 20 RF: 0 cephalexin [cephalexin] 500 MG capsule 500 mg PO Q6 Qty: 40 RF: 0 hydroxyzine pamoate [Vistaril] 25 mg capsule 25 mg PO QHS PRN (Reason: insomnia) Qty: 10 RF: 0 Primary Care Provider: Edgard Amato Referrals: Edgard Amato MD [Primary Care Provider] - 3-5 Days Disposition Disposition: Home, Self Care
--- NOTE | 2022-05-05 04:33 | CT_ITS ---
STUDY: CT BRAIN WITHOUT CONTRAST REASON FOR EXAM: Female, 21 years old. Pain RADIATION DOSAGE (If Supplied By Facility): CTDIvol = ( 44.99 ) mGy, DLP = ( 812.98 ) mGycm TECHNIQUE: Transaxial CT imaging of the brain was performed without administration of intravenous contrast material. Individualized dose optimization techniques were used for this CT. COMPARISON: Cranial CT of 11/06/2021. FINDINGS: Normal soft tissue structures. Normal calvarium. Normal size ventricles and extra-axial spaces for the patient''s age. Normal white matter tracts of the cerebral hemispheres. Normal basal ganglia and thalami. Normal brainstem. Normal cerebellum. There is no intracranial hemorrhage. There are no findings of an acute ischemic infarction. No intracranial mass is visualized. Normal visualized paranasal sinuses. Visualized mastoid air cells are clear. The globes are symmetric. CT/Brain/Head without Contrast IMPRESSION: Negative. No significant interval change. No acute intracranial abnormality. Electronically Signed: Chaparro Carrillo MD at 5:59 EDT ,
[2022-05-05 04:47] LABS: Absolute Lymphocyte Count 2.96 X10^3/uL (0.83-4.51); Absolute Neutrophil Count 4.4 X10^3/uL (2.0-7.7); Basophil# 0.04 X10^3/uL; Basophil% 0.5 % (0-1); Eosinophil# 0.17 X10^3/uL; Eosinophils% 2.1 % (0-5); Hematocrit 44.9 % (37-47); Hemoglobin 14.3 g/dL (12.0-15.0); Lymphocyte # 2.96 X10^3/ul (0.83-4.51); Lymphocyte % 36.6 % (19-41); Mean Corp Hgb Conc 31.8 g/dL (32-36); Mean Corpuscular Hgb 28.7 pg (27.0-32.0); Mean Platelet Vol. 10.5 fl (6.2-12.0); Monocyte# 0.45 X10^3/uL; Monocyte% 5.6 % (0-10); NRBC Flagged by Analyzer 0 % (0-5); Neutrophil # 4.44 X10^3/uL (2.7-7.7); Neutrophil % 54.8 % (47-70); Platelet Count 301 K/mm3 (150-450); RBC Distribution Width CV 14.2 % (11.6-14.6); RBC Distribution Width SD 46.7 fl (35.1-43.9); Red Blood Count 4.99 M/mm3 (4.2-5.4); White Blood Count 8.1 K/mm3 (4.4-11.0)
[2022-05-05] MEDS: Metoclopramide 10 MG/2 ML Vial IV (04:48)
[2022-05-05] MEDS: DiphenhydrAMINE 50 MG/ML Syringe 25 MG IV (04:49)
[2022-05-05] MEDS: 0.9% Normal Saline 1,000 ML 999 ML IV (04:49)
[2022-05-05 05:06] LABS: Anion Gap 7 (5-15); BUN 14 mg/dL (7-18); BUN/Creat Ratio 15.8 RATIO (10-20); Calcium,Total 9.6 mg/dL (8.5-10.1); Chloride 107 mmol/L (98-107); Creatinine, Serum 0.89 mg/dL (0.55-1.02); EST Glomerular Filtration Rate 87 mL/min (>60); Est Glom Filt Rate - Afr Amer 105 mL/min (>60); Estimated Creatinine Clearance 95.18 ml/min; Glucose 99 mg/dL (74-106); Potassium 3.5 mmol/L (3.5-5.1); Sodium Level 141 mmol/L (136-145)
[2022-05-05 06:00] VITALS: BP 175/100; PULSE 72; RESP 18; O2SAT 99
[2022-05-05 06:55] LABS: Bacteria 0 SEEN /hpf (None Seen); Mucous, Urine 0 SEEN /hpf (<or=2+); Red Blood Cells-Urine 0 SEEN /hpf (0-5); Squamous Epithelial Cells - UA 0 SEEN /hpf (5-10)
[2022-05-05 06:56] LABS: Color, Urine Yellow (Yellow); Glucose, Dipstick Normal (Normal); Ketone-Dipstick Negative (Negative); Leukocyte Esterase-Dipstick Negative /ul (Negative); Nitrite-Dipstick Negative (Negative); Occult Blood-Urine 10 /ul (Negative); Protein-Dipstick 500 mg/dl (Negative); Urine Bilirubin Dipstick Negative (Negative); Urine Clarity Clear (Clear); Urine Urobilinogen Normal (Normal)
--- NOTE | 2022-05-05 07:07 | NURSING ---
Pt voiding around here gross cath from home. pt cleaned up and new cath reinserted without any difficulty.
[2022-05-05 07:20] LABS: White Blood Cells 0-5 SEEN /hpf (0-5)
== END 2022-05-05 08:44 | disposition home or self-care (01) ==
PROVIDERS: Emergency Provider Emergency Medicine; PCP Pediatrics; Visit Provider Emergency Medicine
DX: R51.9 Headache, unspecified (principal); G82.20 Paraplegia, unspecified; Z93.3 Colostomy status; R11.2 Nausea with vomiting, unspecified; E66.9 Obesity, unspecified; Z79.01 Long term (current) use of anticoagulants; Z79.82 Long term (current) use of aspirin; Z87.891 Personal history of nicotine dependence
CPT/HCPCS: 51702; 70450; 80048; 81001; 85025; 96361; 96374; 96375; 99285; J7030

== ENCOUNTER 2022-05-20 17:39 | Emergency (ER) | payer MEDICAID, SELFPAY ==
[2022-05-20 17:41] VITALS: BP 174/110; PULSE 71; RESP 18; TEMP 36.8; O2SAT 100; BMI 39.3
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
[2022-05-20 18:56] VITALS: BP 99/57; PULSE 70; RESP 16; O2SAT 100
== END 2022-05-20 19:27 | disposition home or self-care (01) ==
PROVIDERS: Emergency Provider Emergency Medicine; PCP Pediatrics; Visit Provider Emergency Medicine
DX: T83.091A Other mechanical complication of indwelling urethral catheter, initial encounter (principal); Z93.3 Colostomy status; G83.9 Paralytic syndrome, unspecified; G90.4 Autonomic dysreflexia; Z79.82 Long term (current) use of aspirin; Z79.2 Long term (current) use of antibiotics; Z79.01 Long term (current) use of anticoagulants; Z87.891 Personal history of nicotine dependence
CPT/HCPCS: 51702; 99285; A4216

== ENCOUNTER 2022-05-27 22:11 | Emergency (ER) | payer MEDICAID, SELFPAY ==
[2022-05-27 22:12] VITALS: BP 113/96; PULSE 80; RESP 16; TEMP 36.2; O2SAT 98; BMI 38.7
[2022-05-27 22:13] VITALS: BP 113/96; PULSE 80; RESP 16; TEMP 36.2; O2SAT 98
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
--- NOTE | 2022-05-27 23:56 | NURSING ---
Addendum entered by Ashley Cooper 05/28/22 01:58: 0200 [facility] CALLED SAID THEY HAD TO REROUTE CREW NEW ETA 45-60 MIN FROM NOW Original Note: CALLED [facility] AT 0000 2HRS ETA, THEY ARE GOING TO SEE IF THEY CAN OUTSOURCE
== END 2022-05-28 03:54 | disposition home or self-care (01) ==
PROVIDERS: Emergency Provider Emergency Medicine; PCP Pediatrics; Visit Provider Emergency Medicine
DX: T83.031A Leakage of indwelling urethral catheter, initial encounter (principal); G82.20 Paraplegia, unspecified; Z93.3 Colostomy status; V89.2XXS Person injured in unspecified motor-vehicle accident, traffic, sequela; N39.490 Overflow incontinence; G90.4 Autonomic dysreflexia; Z79.82 Long term (current) use of aspirin; Z79.01 Long term (current) use of anticoagulants; Z87.891 Personal history of nicotine dependence
CPT/HCPCS: 99284; A4216

== ENCOUNTER 2022-06-10 04:58 | Emergency (ER) | payer MEDICAID, SELFPAY ==
[2022-06-10 04:58] VITALS: BP 100/63; PULSE 76; RESP 16; TEMP 37; BMI 38.6
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
--- NOTE | 2022-06-10 05:40 | ED.RN ---
Gross cath irrigated easily with 100cc NS. Returned cloudy pale strong smelling urine. upon arrival gross bag emptied for 1800cc urine. linens stained with dried fowl smelling urine. dressing to coccyx curled up. removed. no signs of skin breakdown noted under dressing.
[2022-06-10 05:50] LABS: Mucous, Urine 0 SEEN /hpf (<or=2+); Red Blood Cells-Urine 0 SEEN /hpf (0-5)
[2022-06-10 06:59] LABS: Color, Urine Yellow (Yellow); Glucose, Dipstick Normal (Normal); Ketone-Dipstick 5 mg/dl (Negative); Leukocyte Esterase-Dipstick 100 /ul (Negative); Nitrite-Dipstick Negative (Negative); Occult Blood-Urine 10 /ul (Negative); Protein-Dipstick 100 mg/dl (Negative); Urine Bilirubin Dipstick Negative (Negative); Urine Clarity Sl. Cloudy (Clear); Urine Urobilinogen Normal (Normal)
[2022-06-10 07:07] LABS: Bacteria 1+ /hpf (None Seen); Squamous Epithelial Cells - UA 0-5 SEEN /hpf (5-10); White Blood Cells 10-25 SEEN /hpf (0-5)
[2022-06-10 07:51] VITALS: BP 106/63; PULSE 73; RESP 16; O2SAT 99
[2022-06-10] MEDS: Nitrofurantoin Macrocrystals 100 MG Capsule PO (07:51)
== END 2022-06-10 07:52 | disposition home or self-care (01) ==
PROVIDERS: Emergency Provider Emergency Medicine; PCP Pediatrics; Visit Provider Emergency Medicine
DX: T83.091A Other mechanical complication of indwelling urethral catheter, initial encounter (principal); G82.20 Paraplegia, unspecified; N39.0 Urinary tract infection, site not specified; R51.9 Headache, unspecified; Z87.891 Personal history of nicotine dependence
CPT/HCPCS: 81001; 87077; 87086; 87088; 87186; 99284

== ENCOUNTER 2022-06-24 20:04 | Emergency (ER) | payer MEDICAID, SELFPAY ==
[2022-06-24 20:05] VITALS: PULSE 72; RESP 18; TEMP 36.1; O2SAT 99; BMI 38.5
[2022-06-24 20:08] VITALS: BP 80/50
--- NOTE | 2022-06-24 20:20 | EX.ED.DYSGE1 ---
HPI History of Present Illness Chief Complaint: Complaint Informant: patient Narrative Narrative: 21-year-old female who is a paraplegic has chronic indwelling Ma presents to the emergency room with a chief complaint of needing a Ma catheter. Home health was unable to replace it today so therefore sent her to emergency. She currently has no complaints. 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 Neck fracture New onset seizure Paraplegic spinal paralysis Single kidney Urinary tract infection Wounds, multiple Home Medications acetaminophen 325 mg tablet 650 mg PO Q4H PRN pain/fever 07/17/21 [History Last Taken Unknown] yolks-x-[id number] 1 tab PO DAILY 07/17/21 [History Last Taken Unknown] ascorbic acid (vitamin C) 500 mg tablet 500 mg PO BID 07/17/21 [History Last Taken Unknown] aspirin 81 mg tablet,delayed release 81 mg PO DAILY 07/17/21 [History Last Taken Unknown] baclofen 20 mg tablet 40 mg PO TID 07/17/21 [History Last Taken Unknown] benzocaine-benzethonium 20 %-0.2 % topical aerosol 1 spray topical QWEEK 07/17/21 [History Last Taken Unknown] calcium carbonate 500 mg-vitamin D3 5 mcg (200 unit) tablet (Calcium 500 + D) 2 tab PO BID 07/17/21 [History Last Taken Unknown] captopril 12.5 mg tablet 3.125 mg PO DAILY PRN PRN autonomic dysreflexia 07/17/21 [History Last Taken Unknown] cholecalciferol (vitamin D3) 25 mcg (1,000 unit) capsule (Vitamin D3) 25 mcg PO DAILY 07/17/21 [History Last Taken Unknown] docusate sodium 100 mg capsule 100 mg PO TID 07/17/21 [History Last Taken Unknown] enoxaparin 40 mg/0.4 mL subcutaneous syringe 40 mg subcut Q12H 07/17/21 [History Last Taken Unknown] escitalopram oxalate 20 mg tablet 20 mg PO DAILY 07/17/21 [History Last Taken Unknown] famotidine 20 mg tablet (Pepcid) 20 mg PO BID 07/17/21 [History Last Taken Unknown] ferrous sulfate 325 mg (65 mg iron) capsule,extended release 325 mg PO TID 07/17/21 [History Last Taken Unknown] magnesium hydroxide 400 mg/5 mL oral suspension 30 ml PO DAILY PRN Constipation 07/17/21 [History Last Taken Unknown] melatonin 12 mg tablet 6 mg PO QHS PRN PRN Insomnia 07/17/21 [History Last Taken Unknown] multivitamin with minerals 1 tab PO DAILY 07/17/21 [History Last Taken Unknown] nitroglycerin 2 % transdermal ointment 1 inch transdermal PRN PRN autonomic dysreflexia 07/17/21 [History Last Taken Unknown] polyethylene glycol 3350 17 gram oral powder packet 17 g PO BID 07/17/21 [History Last Taken Unknown] sennosides 8.6 mg tablet (senna) 17.2 mg PO BID 07/17/21 [History Last Taken Unknown] tizanidine 4 mg capsule 4 mg PO TID 07/17/21 [History Last Taken Unknown] zinc sulfate 220 mg capsule 220 mg PO BID 07/17/21 [History Last Taken Unknown] ondansetron 4 mg disintegrating tablet 4 mg PO Q6H PRN PRN Nausea #20 tabs 09/01/21 [Rx Last Taken Unknown] ciprofloxacin HCl 500 mg tablet 500 mg PO BID #14 tabs 11/07/21 [Rx Last Taken Unknown] doxycycline hyclate 100 mg capsule 100 mg PO BID #14 caps 11/07/21 [Rx Last Taken Unknown] levetiracetam 750 mg tablet 750 mg PO BID #60 tabs 11/07/21 [Rx Last Taken Unknown] methenamine hippurate 1 gram tablet (Hiprex) 1 g PO Q12H #180 tabs 11/07/21 [Rx Last Taken Unknown] cephalexin 500 mg capsule 500 mg PO Q6 #40 caps 01/21/22 [Rx Last Taken Unknown] sulfamethoxazole 800 mg-trimethoprim 160 mg tablet (Bactrim DS) 1 tab PO BID #20 tabs 01/21/22 [Rx Last Taken Unknown] cephalexin 500 mg capsule 500 mg PO Q6 #40 CAPSULES 04/17/22 [Rx Last Taken Unknown] sulfamethoxazole 800 mg-trimethoprim 160 mg tablet (Bactrim DS) 1 tab PO BID #20 tabs 04/17/22 [Rx Last Taken Unknown] hydroxyzine pamoate 25 mg capsule (Vistaril) 25 mg PO QHS PRN insomnia #10 caps 04/27/22 [Rx Last Taken Unknown] nitrofurantoin monohydrate/macrocrystals 100 mg capsule (Macrobid) 100 mg PO Q12H 7 days #14 caps 06/10/22 [Rx Last Taken Unknown] sulfamethoxazole 800 mg-trimethoprim 160 mg tablet 1 tab PO BID #14 TABLETS 06/24/22 [Rx Last Taken Unknown] Allergy/AdvReac Type Severity Reaction Status Date / Time No Known Allergies Allergy Verified 05/27/22 22:13 Surgical History H/O thumb surgery S/P cervical spinal fusion Social History household members: family Smoking Status: Former smoker alcohol intake: never substance use type: does not use ROS ROS ED Constitutional Constitutional ED: Denies chills, fever(s) or weight loss Eyes Eyes: Denies change in vision or diplopia ENT ENT ED: Denies ear pain, rhinorrhea or sore throat Cardiovascular Cardiovascular: Denies chest pain, orthopnea, palpitations or racing heartbeat Respiratory/Chest Respiratory/Chest: Denies cough, dyspnea or orthopnea Gastrointestinal Gastrointestinal: Denies abdominal pain, diarrhea, nausea or vomiting Genitourinary Genitourinary ED: Denies dysuria, hematuria or urinary frequency Musculoskeletal Musculoskeletal: Denies arthralgias or myalgias Integumentary Denies abscess or rash Neurologic Neurologic: Denies headache(s) or weakness Psychiatric Psychiatric: Denies anxiety, depression, suicidal ideation or suicidal thoughts Endocrine Endocrinology: Denies polydipsia, polyphagia or polyuria Allergic/Immunologic Allergic/Immunologic ED: Denies mouth swelling, tongue swelling or urticaria EXAM Physical Exam Const Vital Signs: 06/24/22 20:05 06/24/22 20:08 Temperature 97 F L Temperature Source Temporal Pulse Rate 72 Respiratory Rate 18 Blood Pressure 80/50 L Blood Pressure Mean 60 Pulse Ox 99 Oxygen Delivery Method Room Air Positive well nourished, well developed and obese General Appearance ED: well developed Nutritional Appearance: obese HEENT Reports normocephalic, head/scalp atraumatic and moist mucous membranes Eyes PERRL and EOMs intact bilaterally Neck no lymphadenopathy, supple and no JVD Resp normal respiratory effort and clear to auscultation bilaterally Cardio regular rate, regular rhythm and no murmurs GI normal to inspection, nondistended, normoactive bowel sounds and non-tender Palpation: soft Back/Spine no CVA tenderness and normal ROM Extremity normal to inspection General Extremety ED: Negative for edema General Extremity: Negative for edema Neuro oriented x3 and CN's II-XII intact bilaterally Sensorium / Orientation: alert Sensory Exam: sensory level loss detected Location: T10 Psych mental status grossly normal Mood & Affect: Negative for depressed or tearful Skin no rashes or lesions noted and no wounds MDM MDM MDM Narrative Medical decision making narrative: Nursing was able to successfully place a 18 German Ma catheter. We will send this off for UA. Urinalysis demonstrates 50-100 white cells 10-25 red cells 2+ bacteria positive leukocyte esterase 5-10 squamous cells. This will be sent for culture in the meantime we will place her on Bactrim which she has had before. Patient will be discharged home. Lab Data Attestation: I reviewed the patient's lab results. Labs: Laboratory Results - last 24 hr 06/24/22 20:20 Urine Color Yellow Urine Clarity Cloudy Urine pH 6.0 Ur Specific [place] 1.020 Urine Protein 100 H Urine Glucose (UA) Normal Urine Ketones Negative Urine Occult Blood 150 H Urine Nitrite Negative Urine Bilirubin Negative Urine Urobilinogen 1 H Ur Leukocyte Esterase 500 H Urine RBC 10-25 SEEN Urine WBC 50-100 SEEN Ur Squamous Epith Cells 5-10 SEEN Urine Bacteria 2+ Urine Mucus 1+ Discharge Plan Triage Chief Complaint: Complaint ED Provider: Morris Wiggins Dx/Rx/DC Orders Clinical Impression: Paraplegic spinal paralysis, Malfunction of Ma catheter, Catheter-associated urinary tract infection Instructions: ED Ma Catheter, Care Prescriptions: New sulfamethoxazole-trimethoprim [sulfamethoxazole-trimethoprim] 1 TABLET tablet 1 tab PO BID Qty: 14 0RF No Action sennosides [senna] 8.6 mg Tablet 17.2 mg PO BID acetaminophen 325 mg Tablet 650 mg PO Q4H PRN (Reason: pain/fever) polyethylene glycol 3350 17 gram Powder In Packet 17 g PO BID aspirin 81 mg Tablet,Delayed Release (Dr/Ec) 81 mg PO DAILY baclofen 20 mg Tablet 40 mg PO TID magnesium hydroxide 400 mg/5 mL Suspension 30 ml PO DAILY PRN (Reason: Constipation) ascorbic acid (vitamin C) 500 mg Tablet 500 mg PO BID nitroglycerin 2 % Ointment 1 inch TRANSDERMAL PRN PRN (Reason: autonomic dysreflexia) multivitamin with minerals Tablet 1 tab PO DAILY zinc sulfate 220 mg Capsule 220 mg PO BID cholecalciferol (vitamin D3) [Vitamin D3] 25 mcg (1,000 unit) Capsule 25 mcg PO DAILY tizanidine 4 mg Capsule 4 mg PO TID melatonin 12 mg Tablet 6 mg PO QHS PRN PRN (Reason: Insomnia) [id number] Tablet 1 tab PO DAILY famotidine [Pepcid] 20 mg Tablet 20 mg PO BID captopril 12.5 mg Tablet 3.125 mg PO DAILY PRN PRN (Reason: autonomic dysreflexia) docusate sodium 100 mg Capsule 100 mg PO TID ferrous sulfate 325 mg (65 mg iron) Capsule, Extended Release 325 mg PO TID enoxaparin 40 mg/0.4 mL Syringe 40 mg SUBCUT Q12H escitalopram oxalate 20 mg Tablet 20 mg PO DAILY calcium carbonate-vitamin D3 [Calcium 500 + D] 500 mg(1,250mg) -200 unit Tablet 2 tab PO BID benzocaine-benzethonium 20-0.2 % Aerosol 1 spray TOPICAL QWEEK Rx Instructions: every other week ondansetron 4 MG tablet 4 mg PO Q6H PRN PRN (Reason: Nausea) Qty: 20 0RF ciprofloxacin HCl 500 mg tablet 500 mg PO BID Qty: 14 0RF methenamine hippurate [Hiprex] 1 gram tablet 1 g PO Q12H Qty: 180 1RF Rx Instructions: can be continued indefinitely. For UTI prevention. doxycycline hyclate 100 mg capsule 100 mg PO BID Qty: 14 0RF levetiracetam 750 mg Tablet 750 mg PO BID Qty: 60 2RF sulfamethoxazole-trimethoprim [Bactrim DS] 800-160 mg tablet 1 tab PO BID Qty: 20 0RF cephalexin 500 mg capsule 500 mg PO Q6 Qty: 40 0RF sulfamethoxazole-trimethoprim [Bactrim DS] 800-160 mg tablet 1 tab PO BID Qty: 20 0RF cephalexin [cephalexin] 500 MG capsule 500 mg PO Q6 Qty: 40 0RF hydroxyzine pamoate [Vistaril] 25 mg capsule 25 mg PO QHS PRN (Reason: insomnia) Qty: 10 0RF nitrofurantoin monohyd/m-cryst [Macrobid] 100 mg capsule 100 mg PO Q12H 7 Days Qty: 14 0RF Rx Instructions: must administer with a meal/food Primary Care Provider: Edgard Amato Referrals: Edgard Amato MD [Primary Care Provider] - As Needed Disposition Disposition: Home, Self Care
[2022-06-24 20:33] LABS: Color, Urine Yellow (Yellow); Glucose, Dipstick Normal (Normal); Ketone-Dipstick Negative (Negative); Leukocyte Esterase-Dipstick 500 /ul (Negative); Nitrite-Dipstick Negative (Negative); Occult Blood-Urine 150 /ul (Negative); Protein-Dipstick 100 mg/dl (Negative); Urine Bilirubin Dipstick Negative (Negative); Urine Clarity Cloudy (Clear); Urine Urobilinogen 1 mg/dl (Normal)
[2022-06-24 20:57] LABS: Red Blood Cells-Urine 10-25 SEEN /hpf (0-5); Squamous Epithelial Cells - UA 5-10 SEEN /hpf (5-10); White Blood Cells 50-100 SEEN /hpf (0-5)
[2022-06-24 20:58] LABS: Bacteria 2+ /hpf (None Seen); Mucous, Urine 1+ /hpf (<or=2+)
[2022-06-24] MEDS: Smz/Tmp Ds Tablet 1 TABLET PO (21:35)
== END 2022-06-24 21:37 | disposition home or self-care (01) ==
PROVIDERS: Emergency Provider Emergency Medicine; PCP Pediatrics; Visit Provider Emergency Medicine
DX: T83.511A Infection and inflammatory reaction due to indwelling urethral catheter, initial encounter (principal); G82.20 Paraplegia, unspecified; T83.011A Breakdown (mechanical) of indwelling urethral catheter, initial encounter; G90.4 Autonomic dysreflexia; E66.9 Obesity, unspecified; Z79.82 Long term (current) use of aspirin; Z79.899 Other long term (current) drug therapy; Z87.891 Personal history of nicotine dependence
CPT/HCPCS: 81001; 87077; 87086; 87088; 87186; 99284

== ENCOUNTER 2022-07-21 22:59 | Emergency (ER) | payer MEDICAID, SELFPAY ==
[2022-07-21 23:00] VITALS: BP 105/72; PULSE 75; RESP 16; TEMP 37.2; O2SAT 97; BMI 39.6
--- NOTE | 2022-07-21 23:31 | RAD_ITS ---
EXAM: XR CHEST, 1 VIEW CLINICAL INDICATION: cough TECHNIQUE: Frontal view of the chest. This report was created using [employer] report generation technology. COMPARISON: January 12, 2022. FINDINGS: LUNGS AND PLEURAL SPACES: No consolidation or edema. No pneumothorax. No effusion. HEART: Unremarkable. Cardiac silhouette not enlarged. MEDIASTINUM: Central airways and mediastinal contour are unremarkable. BONES/JOINTS: Unremarkable. SOFT TISSUES: Unremarkable. RAD/Chest 1 View (Portable) IMPRESSION: No radiographic evidence of acute cardiopulmonary disease. Electronically Signed: Felton Junior MD at 23:57 EDT ,
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
[2022-07-22] MEDS: Ibuprofen 200 MG Tablet 400 MG PO (00:23)
[2022-07-22] MEDS: Metoclopramide 10 MG Tablet PO (00:24)
== END 2022-07-22 01:18 | disposition home or self-care (01) ==
PROVIDERS: Emergency Provider Emergency Medicine; PCP Pediatrics; Visit Provider Emergency Medicine
DX: U07.1 COVID-19 (principal); G82.20 Paraplegia, unspecified; Z93.3 Colostomy status; G43.909 Migraine, unspecified, not intractable, without status migrainosus; E66.9 Obesity, unspecified; Z79.82 Long term (current) use of aspirin; Z79.01 Long term (current) use of anticoagulants; Z79.899 Other long term (current) drug therapy; Z87.891 Personal history of nicotine dependence
CPT/HCPCS: 71045; 87428; 99285

== ENCOUNTER 2022-07-26 18:49 | Emergency (ER) | payer MEDICAID, SELFPAY ==
[2022-07-26 18:51] VITALS: BP 91/60; PULSE 91; RESP 16; TEMP 36.8; O2SAT 93; BMI 38.9
--- NOTE | 2022-07-26 18:59 | EDS_ITS ---
HPI HPI - Female History of Present Illness Chief Complaint: Ma C/O Informant: patient and EMS Narrative Narrative: 21-year-old female history of paraplegia and a chronic indwelling Ma catheter presenting to the emergency department after her catheter came out. Patient notes that this is happened before. She has no other issues to address tonight. She states that she is going to be getting a suprapubic catheter soon. 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 Neck fracture New onset seizure Paraplegic spinal paralysis Single kidney Urinary tract infection Wounds, multiple Home Medications acetaminophen 325 mg tablet 650 mg PO Q4H PRN pain/fever 07/17/21 [History Last Taken Unknown] [id number] 1 tab PO DAILY 07/17/21 [History Last Taken Unknown] ascorbic acid (vitamin C) 500 mg tablet 500 mg PO BID 07/17/21 [History Last Taken Unknown] aspirin 81 mg tablet,delayed release 81 mg PO DAILY 07/17/21 [History Last Taken Unknown] baclofen 20 mg tablet 40 mg PO TID 07/17/21 [History Last Taken Unknown] benzocaine-benzethonium 20 %-0.2 % topical aerosol 1 spray topical QWEEK 07/17/21 [History Last Taken Unknown] calcium carbonate 500 mg-vitamin D3 5 mcg (200 unit) tablet (Calcium 500 + D) 2 tab PO BID 07/17/21 [History Last Taken Unknown] captopril 12.5 mg tablet 3.125 mg PO DAILY PRN PRN autonomic dysreflexia 07/17/21 [History Last Taken Unknown] cholecalciferol (vitamin D3) 25 mcg (1,000 unit) capsule (Vitamin D3) 25 mcg PO DAILY 07/17/21 [History Last Taken Unknown] docusate sodium 100 mg capsule 100 mg PO TID 07/17/21 [History Last Taken Unknown] enoxaparin 40 mg/0.4 mL subcutaneous syringe 40 mg subcut Q12H 07/17/21 [History Last Taken Unknown] escitalopram oxalate 20 mg tablet 20 mg PO DAILY 07/17/21 [History Last Taken Unknown] famotidine 20 mg tablet (Pepcid) 20 mg PO BID 07/17/21 [History Last Taken Unknown] ferrous sulfate 325 mg (65 mg iron) capsule,extended release 325 mg PO TID 07/17/21 [History Last Taken Unknown] magnesium hydroxide 400 mg/5 mL oral suspension 30 ml PO DAILY PRN Constipation 07/17/21 [History Last Taken Unknown] melatonin 12 mg tablet 6 mg PO QHS PRN PRN Insomnia 07/17/21 [History Last Taken Unknown] multivitamin with minerals 1 tab PO DAILY 07/17/21 [History Last Taken Unknown] nitroglycerin 2 % transdermal ointment 1 inch transdermal PRN PRN autonomic dysreflexia 07/17/21 [History Last Taken Unknown] polyethylene glycol 3350 17 gram oral powder packet 17 g PO BID 07/17/21 [History Last Taken Unknown] sennosides 8.6 mg tablet (senna) 17.2 mg PO BID 07/17/21 [History Last Taken Unknown] tizanidine 4 mg capsule 4 mg PO TID 07/17/21 [History Last Taken Unknown] zinc sulfate 220 mg capsule 220 mg PO BID 07/17/21 [History Last Taken Unknown] ondansetron 4 mg disintegrating tablet 4 mg PO Q6H PRN PRN Nausea #20 tabs 09/01/21 [Rx Last Taken Unknown] ciprofloxacin HCl 500 mg tablet 500 mg PO BID #14 tabs 11/07/21 [Rx Last Taken Unknown] doxycycline hyclate 100 mg capsule 100 mg PO BID #14 caps 11/07/21 [Rx Last Taken Unknown] levetiracetam 750 mg tablet 750 mg PO BID #60 tabs 11/07/21 [Rx Last Taken Unknown] methenamine hippurate 1 gram tablet (Hiprex) 1 g PO Q12H #180 tabs 11/07/21 [Rx Last Taken Unknown] cephalexin 500 mg capsule 500 mg PO Q6 #40 caps 01/21/22 [Rx Last Taken Unknown] sulfamethoxazole 800 mg-trimethoprim 160 mg tablet (Bactrim DS) 1 tab PO BID #20 tabs 01/21/22 [Rx Last Taken Unknown] cephalexin 500 mg capsule 500 mg PO Q6 #40 CAPSULES 04/17/22 [Rx Last Taken Unknown] sulfamethoxazole 800 mg-trimethoprim 160 mg tablet (Bactrim DS) 1 tab PO BID #20 tabs 04/17/22 [Rx Last Taken Unknown] hydroxyzine pamoate 25 mg capsule (Vistaril) 25 mg PO QHS PRN insomnia #10 caps 04/27/22 [Rx Last Taken Unknown] nitrofurantoin monohydrate/macrocrystals 100 mg capsule (Macrobid) 100 mg PO Q12H 7 days #14 caps 06/10/22 [Rx Last Taken Unknown] sulfamethoxazole 800 mg-trimethoprim 160 mg tablet 1 tab PO BID #14 TABLETS 06/24/22 [Rx Last Taken Unknown] nystatin 100,000 unit/gram topical powder 1 applic topical BID #30 grams 07/26/22 [Rx Last Taken Unknown] Allergy/AdvReac Type Severity Reaction Status Date / Time No Known Allergies Allergy Verified 07/21/22 23:03 Surgical History H/O thumb surgery S/P cervical spinal fusion Social History household members: family Smoking Status: Former smoker alcohol intake: never substance use type: does not use ROS ROS ED Constitutional Constitutional ED: Denies chills or weight loss Eyes Eyes: Denies change in vision or diplopia ENT ENT ED: Denies ear pain, rhinorrhea or sore throat Cardiovascular Cardiovascular: Denies chest pain, orthopnea, palpitations or racing heartbeat Respiratory/Chest Respiratory/Chest: Denies cough, dyspnea or orthopnea Gastrointestinal Gastrointestinal: Denies abdominal pain, diarrhea, nausea or vomiting Genitourinary Genitourinary ED: Denies dysuria, hematuria or urinary frequency Musculoskeletal Musculoskeletal: Denies arthralgias or myalgias Integumentary Denies abscess or rash Neurologic Neurologic: Denies headache(s) or weakness Psychiatric Psychiatric: Denies anxiety, depression, suicidal ideation or suicidal thoughts Endocrine Endocrinology: Denies polydipsia, polyphagia or polyuria Allergic/Immunologic Allergic/Immunologic ED: Denies mouth swelling, tongue swelling or urticaria EXAM Physical Exam Const Vital Signs: 07/26/22 18:51 Temperature 98.3 F Temperature Source Oral Pulse Rate 91 Respiratory Rate 16 Blood Pressure 91/60 Blood Pressure Mean 70 Pulse Ox 93 Oxygen Delivery Method Room Air Positive well nourished, well developed and obese General Appearance ED: well developed Nutritional Appearance: obese HEENT Reports normocephalic, head/scalp atraumatic and moist mucous membranes Eyes PERRL and EOMs intact bilaterally Neck no lymphadenopathy, supple and no JVD Resp normal respiratory effort and clear to auscultation bilaterally Cardio regular rate, regular rhythm and no murmurs GI normal to inspection, nondistended, normoactive bowel sounds and non-tender Palpation: soft Back/Spine no CVA tenderness and normal ROM Extremity normal to inspection General Extremety ED: Negative for edema General Extremity: Negative for edema Neuro oriented x3 and CN's II-XII intact bilaterally Sensorium / Orientation: alert Psych mental status grossly normal Mood & Affect: Negative for depressed or tearful Skin no rashes or lesions noted and no wounds MDM MDM MDM Narrative Medical decision making narrative: Nursing informing that the patient appears to have some vaginal/skin candidiasis. Diflucan and nystatin powder was ordered. Ma catheter will be placed by nursing. Patient will be discharged home. Discharge Plan Triage Chief Complaint: Ma C/O ED Provider: Morris Wiggins Dx/Rx/DC Orders Clinical Impression: Dislodged Ma catheter, Paraplegia, Candidiasis of skin Instructions: ED Ma Catheter, Care Prescriptions: New nystatin 100,000 unit/gram powder 1 applic topical BID Qty: 30 0RF No Action sennosides [senna] 8.6 mg Tablet 17.2 mg PO BID acetaminophen 325 mg Tablet 650 mg PO Q4H PRN (Reason: pain/fever) polyethylene glycol 3350 17 gram Powder In Packet 17 g PO BID aspirin 81 mg Tablet,Delayed Release (Dr/Ec) 81 mg PO DAILY baclofen 20 mg Tablet 40 mg PO TID magnesium hydroxide 400 mg/5 mL Suspension 30 ml PO DAILY PRN (Reason: Constipation) ascorbic acid (vitamin C) 500 mg Tablet 500 mg PO BID nitroglycerin 2 % Ointment 1 inch TRANSDERMAL PRN PRN (Reason: autonomic dysreflexia) multivitamin with minerals Tablet 1 tab PO DAILY zinc sulfate 220 mg Capsule 220 mg PO BID cholecalciferol (vitamin D3) [Vitamin D3] 25 mcg (1,000 unit) Capsule 25 mcg PO DAILY tizanidine 4 mg Capsule 4 mg PO TID melatonin 12 mg Tablet 6 mg PO QHS PRN PRN (Reason: Insomnia) [id number] Tablet 1 tab PO DAILY famotidine [Pepcid] 20 mg Tablet 20 mg PO BID captopril 12.5 mg Tablet 3.125 mg PO DAILY PRN PRN (Reason: autonomic dysreflexia) docusate sodium 100 mg Capsule 100 mg PO TID ferrous sulfate 325 mg (65 mg iron) Capsule, Extended Release 325 mg PO TID enoxaparin 40 mg/0.4 mL Syringe 40 mg SUBCUT Q12H escitalopram oxalate 20 mg Tablet 20 mg PO DAILY calcium carbonate-vitamin D3 [Calcium 500 + D] 500 mg(1,250mg) -200 unit Tablet 2 tab PO BID benzocaine-benzethonium 20-0.2 % Aerosol 1 spray TOPICAL QWEEK Rx Instructions: every other week ondansetron 4 MG tablet 4 mg PO Q6H PRN PRN (Reason: Nausea) Qty: 20 0RF ciprofloxacin HCl 500 mg tablet 500 mg PO BID Qty: 14 0RF methenamine hippurate [Hiprex] 1 gram tablet 1 g PO Q12H Qty: 180 1RF Rx Instructions: can be continued indefinitely. For UTI prevention. doxycycline hyclate 100 mg capsule 100 mg PO BID Qty: 14 0RF levetiracetam 750 mg Tablet 750 mg PO BID Qty: 60 2RF sulfamethoxazole-trimethoprim [Bactrim DS] 800-160 mg tablet 1 tab PO BID Qty: 20 0RF cephalexin 500 mg capsule 500 mg PO Q6 Qty: 40 0RF sulfamethoxazole-trimethoprim [Bactrim DS] 800-160 mg tablet 1 tab PO BID Qty: 20 0RF cephalexin [cephalexin] 500 MG capsule 500 mg PO Q6 Qty: 40 0RF hydroxyzine pamoate [Vistaril] 25 mg capsule 25 mg PO QHS PRN (Reason: insomnia) Qty: 10 0RF nitrofurantoin monohyd/m-cryst [Macrobid] 100 mg capsule 100 mg PO Q12H 7 Days Qty: 14 0RF Rx Instructions: must administer with a meal/food sulfamethoxazole-trimethoprim [sulfamethoxazole-trimethoprim] 1 TABLET tablet 1 tab PO BID Qty: 14 0RF Primary Care Provider: Edgard Amato Referrals: Edgard Amato MD [Primary Care Provider] - Disposition Disposition: Home, Self Care
[2022-07-26 19:19] VITALS: RESP 16
[2022-07-26] MEDS: Fluconazole 100 MG Tablet 200 MG PO (20:21)
== END 2022-07-26 21:27 | disposition home or self-care (01) ==
PROVIDERS: Emergency Provider Emergency Medicine; PCP Pediatrics; Visit Provider Emergency Medicine
DX: T83.021A Displacement of indwelling urethral catheter, initial encounter (principal); G82.20 Paraplegia, unspecified; Z93.3 Colostomy status; B37.2 Candidiasis of skin and nail; Y84.6 Urinary catheterization as the cause of abnormal reaction of the patient, or of later complication, without mention of misadventure at the time of the procedure; E66.9 Obesity, unspecified; Z79.82 Long term (current) use of aspirin; Z79.01 Long term (current) use of anticoagulants; Z79.899 Other long term (current) drug therapy; Z87.891 Personal history of nicotine dependence
CPT/HCPCS: 51702; 99284

== ENCOUNTER 2022-08-15 23:18 | Emergency (ER) | payer MEDICAID, SELFPAY ==
[2022-08-15 23:20] VITALS: BP 136/80; PULSE 79; RESP 16; TEMP 35.6; O2SAT 98; BMI 40.7
[2022-08-15 23:49] LABS: Mucous, Urine 0 SEEN /hpf (<or=2+); Squamous Epithelial Cells - UA 0 SEEN /hpf (5-10)
[2022-08-15 23:50] LABS: Color, Urine Red (Yellow); Glucose, Dipstick Normal (Normal); Ketone-Dipstick 5 mg/dl (Negative); Leukocyte Esterase-Dipstick 500 /ul (Negative); Nitrite-Dipstick Negative (Negative); Occult Blood-Urine 250 /ul (Negative); Protein-Dipstick 100 mg/dl (Negative); Urine Bilirubin Dipstick Negative (Negative); Urine Clarity Turbid (Clear); Urine Urobilinogen Normal (Normal)
[2022-08-16 00:08] LABS: Bacteria 1+ /hpf (None Seen); Red Blood Cells-Urine > 100 SEEN /hpf (0-5); White Blood Cells 50-100 SEEN /hpf (0-5)
[2022-08-16 01:18] LABS: Anion Gap 7 (5-15); BUN 18 mg/dL (7-18); BUN/Creat Ratio 18.8 RATIO (10-20); Chloride 111 mmol/L (98-107); Creatinine, Serum 0.96 mg/dL (0.55-1.02); EST Glomerular Filtration Rate 79 mL/min (>60); Est Glom Filt Rate - Afr Amer 96 mL/min (>60); Estimated Creatinine Clearance 84.82 ml/min; Glucose 93 mg/dL (74-106); Potassium 4.1 mmol/L (3.5-5.1); Sodium Level 142 mmol/L (136-145)
--- NOTE | 2022-08-16 01:54 | EX.ED.DYSGE1 ---
HPI History of Present Illness Chief Complaint: Complaint Narrative Narrative: Patient is a 21-year-old female with past medical history of quadriplegia. Secondary to this she has a chronic indwelling Ma catheter and as she is immobile she is on Lovenox. Patient states that her catheter was changed today and then a few hours later she noticed blood in the catheter tubing. She states that she does not feel feverish or chills. 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 Neck fracture New onset seizure Paraplegic spinal paralysis Single kidney Urinary tract infection Wounds, multiple Home Medications acetaminophen 325 mg tablet 650 mg PO Q4H PRN pain/fever 07/17/21 [History Last Taken Unknown] tfxay-[id number] 1 tab PO DAILY 07/17/21 [History Last Taken Unknown] ascorbic acid (vitamin C) 500 mg tablet 500 mg PO BID 07/17/21 [History Last Taken Unknown] aspirin 81 mg tablet,delayed release 81 mg PO DAILY 07/17/21 [History Last Taken Unknown] baclofen 20 mg tablet 40 mg PO TID 07/17/21 [History Last Taken Unknown] benzocaine-benzethonium 20 %-0.2 % topical aerosol 1 spray topical QWEEK 07/17/21 [History Last Taken Unknown] calcium carbonate 500 mg-vitamin D3 5 mcg (200 unit) tablet (Calcium 500 + D) 2 tab PO BID 07/17/21 [History Last Taken Unknown] captopril 12.5 mg tablet 3.125 mg PO DAILY PRN PRN autonomic dysreflexia 07/17/21 [History Last Taken Unknown] cholecalciferol (vitamin D3) 25 mcg (1,000 unit) capsule (Vitamin D3) 25 mcg PO DAILY 07/17/21 [History Last Taken Unknown] docusate sodium 100 mg capsule 100 mg PO TID 07/17/21 [History Last Taken Unknown] enoxaparin 40 mg/0.4 mL subcutaneous syringe 40 mg subcut Q12H 07/17/21 [History Last Taken Unknown] escitalopram oxalate 20 mg tablet 20 mg PO DAILY 07/17/21 [History Last Taken Unknown] famotidine 20 mg tablet (Pepcid) 20 mg PO BID 07/17/21 [History Last Taken Unknown] ferrous sulfate 325 mg (65 mg iron) capsule,extended release 325 mg PO TID 07/17/21 [History Last Taken Unknown] magnesium hydroxide 400 mg/5 mL oral suspension 30 ml PO DAILY PRN Constipation 07/17/21 [History Last Taken Unknown] melatonin 12 mg tablet 6 mg PO QHS PRN PRN Insomnia 07/17/21 [History Last Taken Unknown] multivitamin with minerals 1 tab PO DAILY 07/17/21 [History Last Taken Unknown] nitroglycerin 2 % transdermal ointment 1 inch transdermal PRN PRN autonomic dysreflexia 07/17/21 [History Last Taken Unknown] polyethylene glycol 3350 17 gram oral powder packet 17 g PO BID 07/17/21 [History Last Taken Unknown] sennosides 8.6 mg tablet (senna) 17.2 mg PO BID 07/17/21 [History Last Taken Unknown] tizanidine 4 mg capsule 4 mg PO TID 07/17/21 [History Last Taken Unknown] zinc sulfate 220 mg capsule 220 mg PO BID 07/17/21 [History Last Taken Unknown] ondansetron 4 mg disintegrating tablet 4 mg PO Q6H PRN PRN Nausea #20 tabs 09/01/21 [Rx Last Taken Unknown] ciprofloxacin HCl 500 mg tablet 500 mg PO BID #14 tabs 11/07/21 [Rx Last Taken Unknown] doxycycline hyclate 100 mg capsule 100 mg PO BID #14 caps 11/07/21 [Rx Last Taken Unknown] levetiracetam 750 mg tablet 750 mg PO BID #60 tabs 11/07/21 [Rx Last Taken Unknown] methenamine hippurate 1 gram tablet (Hiprex) 1 g PO Q12H #180 tabs 11/07/21 [Rx Last Taken Unknown] cephalexin 500 mg capsule 500 mg PO Q6 #40 caps 01/21/22 [Rx Last Taken Unknown] sulfamethoxazole 800 mg-trimethoprim 160 mg tablet (Bactrim DS) 1 tab PO BID #20 tabs 01/21/22 [Rx Last Taken Unknown] cephalexin 500 mg capsule 500 mg PO Q6 #40 CAPSULES 04/17/22 [Rx Last Taken Unknown] sulfamethoxazole 800 mg-trimethoprim 160 mg tablet (Bactrim DS) 1 tab PO BID #20 tabs 04/17/22 [Rx Last Taken Unknown] hydroxyzine pamoate 25 mg capsule (Vistaril) 25 mg PO QHS PRN insomnia #10 caps 04/27/22 [Rx Last Taken Unknown] nitrofurantoin monohydrate/macrocrystals 100 mg capsule (Macrobid) 100 mg PO Q12H 7 days #14 caps 06/10/22 [Rx Last Taken Unknown] sulfamethoxazole 800 mg-trimethoprim 160 mg tablet 1 tab PO BID #14 TABLETS 06/24/22 [Rx Last Taken Unknown] nystatin 100,000 unit/gram topical powder 1 applic topical BID #30 grams 07/26/22 [Rx Last Taken Unknown] cephalexin 500 mg capsule 500 mg PO TID 7 days #21 caps 08/16/22 [Rx Last Taken Unknown] Allergy/AdvReac Type Severity Reaction Status Date / Time No Known Allergies Allergy Verified 08/15/22 23:19 Surgical History H/O thumb surgery S/P cervical spinal fusion Social History household members: family Smoking Status: Former smoker alcohol intake: never substance use type: does not use ROS ROS ED Constitutional Constitutional ED: Denies chills or fever(s) ENT ENT ED: Denies sore throat Cardiovascular Cardiovascular: Denies chest pain Respiratory/Chest Respiratory/Chest: Denies cough or dyspnea Gastrointestinal Gastrointestinal: Denies abdominal pain, diarrhea, nausea or vomiting Genitourinary Genitourinary ED: Reports hematuria Integumentary Denies rash Neurologic Neurologic: Denies headache(s) Hematologic/Lymphatic Hematologic/Lymphatic: Reports easy bleeding and easy bruising EXAM Physical Exam Const Vital Signs: 08/15/22 23:20 Temperature 96.1 F L Temperature Source Temporal Pulse Rate 79 Respiratory Rate 16 Blood Pressure 136/80 H Blood Pressure Mean 98 Pulse Ox 98 Oxygen Delivery Method Room Air Positive well nourished, well developed and obese General Appearance ED: well developed Nutritional Appearance: obese Eyes PERRL and EOMs intact bilaterally Neck supple Resp normal respiratory effort and clear to auscultation bilaterally Cardio regular rate and regular rhythm GI normal to inspection, nondistended, normoactive bowel sounds, non-tender and non-distended GI Narrative: No voluntary guarding or rigidity. No pulsatile mass. No organomegaly noted to suggest acute urinary retention Auscultation: normoactive bowel sounds Palpation: soft Narrative: Ma catheter in place. There is blood discolored urine within the catheter tubing. The blood is translucent however indicating this is old blood and not an active bleed. Extremity Extremity Narrative: Patient has chronic changes secondary to her underlying medical conditions without signs of trauma or infection Neuro oriented x3 and CN's II-XII intact bilaterally Sensorium / Orientation: alert Psych mental status grossly normal Skin no rashes or lesions noted MDM MDM MDM Narrative Medical decision making narrative: Patient presented to the ER with stable vitals and no signs of urinary retention/obstruction. She has no complaints other than the hematuria. She also reported the catheter was changed today. Nursing staff reports that typically will take for people to change the catheter in the ER and patient states it was just her mother and home health aide who did it today. I initially elected to check basic laboratory studies because of the patient's hematuria. However she is a hard stick and after multiple attempts even with ultrasound alignment cannot be obtained and most of the blood tubing clotted. Her kidney function returned to normal which is one of the main factors I was concerned about. As her vitals are stable I have low risk/concern that she is anemic and therefore do not feel the need to continue with blood draws. The patient is urine does show signs of infection but as she is a chronic indwelling Ma catheter it may just be colonized. Therefore the urine will be sent for culture. The patient's Ma catheter was irrigated and it did clear up the hematuria. However the hematuria did return short while later. The hematuria is translucent indicating it is still old blood. We discussed changing the catheter for a three-way so that irrigation could be performed. However based on the difficult nature of changing her catheter and the fact there is already been trauma which I feel is causing her symptoms I do not believe there is need to change the catheter as exam indicates this is old blood. Patient will be started on antibiotics while the urine culture is resulted. She agrees that it is in her best interest to leave the current catheter in as the blood is old and should resolve in the next few days. She agrees to return to the ER if this does not happen but at this time as vitals are stable there is no signs of obstruction/retention and kidney function is normal she is otherwise safe for discharge Lab Data Attestation: I reviewed the patient's lab results. Labs: Laboratory Results - last 24 hr 08/15/22 08/16/22 08/16/22 23:45 00:55 01:11 WBC Cancelled Corrected WBC Cancelled RBC Cancelled Hgb Cancelled Hct Cancelled MCV Cancelled MCH Cancelled MCHC Cancelled RDW Std Deviation Cancelled RDW Coeff of Anurag Cancelled Plt Count Cancelled MPV Cancelled Immature Gran % (Auto) Cancelled Neut % (Auto) Cancelled Lymph % (Auto) Cancelled [place] % (Auto) Cancelled Eos % (Auto) Cancelled Baso % (Auto) Cancelled Absolute Neuts (auto) Cancelled Absolute Lymphs (auto) Cancelled Total Counted Cancelled Neutrophils % (Manual) Cancelled Band Neutrophils % Cancelled Lymphocytes % (Manual) Cancelled Monocytes % (Manual) Cancelled Eosinophils % (Manual) Cancelled Basophils % (Manual) Cancelled Metamyelocytes % Cancelled Myelocytes % Cancelled Promyelocytes % Cancelled Blast Cells % Cancelled Plasma Cell % (Manual) Cancelled Other Cells % Cancelled Nucleated RBC % Cancelled Nucleated RBCs/100 WBC Cancelled Differential Comment Cancelled Diff Path Review Cancelled Hypersegmented Neuts Cancelled Atypical Lymphocytes Cancelled Reactive Lymphocytes Cancelled Smudge Cells Cancelled Toxic Granulation Cancelled Toxic Vacuolation Cancelled Dohle Bodies Cancelled Adry Rods Cancelled Platelet Estimate Cancelled Plt Morphology Comment Cancelled RBC Morphology Cancelled Polychromasia Cancelled Hypochromasia Cancelled Poikilocytosis Cancelled Basophilic Stippling Cancelled Anisocytosis Cancelled Microcytosis Cancelled Macrocytosis Cancelled Spherocytes Cancelled Sickle Cells Cancelled Target Cells Cancelled Tear Drop Cells Cancelled Ovalocytes Cancelled Stomatocytes Cancelled [place] Bodies Cancelled [place] Cells Cancelled Bite Cells Cancelled Crenated Cell Cancelled Acanthocytes (Spur) Cancelled Rouleaux Cancelled Schistocytes Cancelled Sodium 142 Potassium 4.1 Chloride 111 H Carbon Dioxide 24.0 Anion Gap 7 BUN 18 Creatinine 0.96 Estim Creat Clear Calc 84.82 Est GFR (MDRD) Af Amer 96 Est GFR (MDRD) Non-Af 79 BUN/Creatinine Ratio 18.8 Glucose 93 Calcium 9.0 Urine Color Red Urine Clarity Turbid Urine pH 5.0 Ur Specific [place] 1.020 Urine Protein 100 H Urine Glucose (UA) Normal Urine Ketones 5 H Urine Occult Blood 250 H Urine Nitrite Negative Urine Bilirubin Negative Urine Urobilinogen Normal Ur Leukocyte Esterase 500 H Urine RBC > 100 SEEN Urine WBC 50-100 SEEN Ur Squamous Epith Cells 0 SEEN Urine Bacteria 1+ Urine Mucus 0 SEEN Discharge Plan Triage Chief Complaint: Complaint ED Provider: Felton Garcia Dx/Rx/DC Orders Clinical Impression: Catheter-associated urinary tract infection, Gross hematuria, Quadriplegia, Autonomic dysreflexia Instructions: ED Hernia (Adult), UTIs Women Prescriptions: New cephalexin 500 mg capsule 500 mg PO TID 7 Days Qty: 21 0RF No Action sennosides [senna] 8.6 mg Tablet 17.2 mg PO BID acetaminophen 325 mg Tablet 650 mg PO Q4H PRN (Reason: pain/fever) polyethylene glycol 3350 17 gram Powder In Packet 17 g PO BID aspirin 81 mg Tablet,Delayed Release (Dr/Ec) 81 mg PO DAILY baclofen 20 mg Tablet 40 mg PO TID magnesium hydroxide 400 mg/5 mL Suspension 30 ml PO DAILY PRN (Reason: Constipation) ascorbic acid (vitamin C) 500 mg Tablet 500 mg PO BID nitroglycerin 2 % Ointment 1 inch TRANSDERMAL PRN PRN (Reason: autonomic dysreflexia) multivitamin with minerals Tablet 1 tab PO DAILY zinc sulfate 220 mg Capsule 220 mg PO BID cholecalciferol (vitamin D3) [Vitamin D3] 25 mcg (1,000 unit) Capsule 25 mcg PO DAILY tizanidine 4 mg Capsule 4 mg PO TID melatonin 12 mg Tablet 6 mg PO QHS PRN PRN (Reason: Insomnia) [id number] Tablet 1 tab PO DAILY famotidine [Pepcid] 20 mg Tablet 20 mg PO BID captopril 12.5 mg Tablet 3.125 mg PO DAILY PRN PRN (Reason: autonomic dysreflexia) docusate sodium 100 mg Capsule 100 mg PO TID ferrous sulfate 325 mg (65 mg iron) Capsule, Extended Release 325 mg PO TID enoxaparin 40 mg/0.4 mL Syringe 40 mg SUBCUT Q12H escitalopram oxalate 20 mg Tablet 20 mg PO DAILY calcium carbonate-vitamin D3 [Calcium 500 + D] 500 mg(1,250mg) -200 unit Tablet 2 tab PO BID benzocaine-benzethonium 20-0.2 % Aerosol 1 spray TOPICAL QWEEK Rx Instructions: every other week ondansetron 4 MG tablet 4 mg PO Q6H PRN PRN (Reason: Nausea) Qty: 20 0RF ciprofloxacin HCl 500 mg tablet 500 mg PO BID Qty: 14 0RF methenamine hippurate [Hiprex] 1 gram tablet 1 g PO Q12H Qty: 180 1RF Rx Instructions: can be continued indefinitely. For UTI prevention. doxycycline hyclate 100 mg capsule 100 mg PO BID Qty: 14 0RF levetiracetam 750 mg Tablet 750 mg PO BID Qty: 60 2RF sulfamethoxazole-trimethoprim [Bactrim DS] 800-160 mg tablet 1 tab PO BID Qty: 20 0RF cephalexin 500 mg capsule 500 mg PO Q6 Qty: 40 0RF sulfamethoxazole-trimethoprim [Bactrim DS] 800-160 mg tablet 1 tab PO BID Qty: 20 0RF cephalexin [cephalexin] 500 MG capsule 500 mg PO Q6 Qty: 40 0RF hydroxyzine pamoate [Vistaril] 25 mg capsule 25 mg PO QHS PRN (Reason: insomnia) Qty: 10 0RF nitrofurantoin monohyd/m-cryst [Macrobid] 100 mg capsule 100 mg PO Q12H 7 Days Qty: 14 0RF Rx Instructions: must administer with a meal/food sulfamethoxazole-trimethoprim [sulfamethoxazole-trimethoprim] 1 TABLET tablet 1 tab PO BID Qty: 14 0RF nystatin 100,000 unit/gram powder 1 applic topical BID Qty: 30 0RF Primary Care Provider: Edgard Amato Referrals: Edgard Amato MD [Primary Care Provider] - Activity Restrictions/Additional Instructions: Your exam indicates that the blood in your urine is old blood most likely from the recent catheter change. This should clear on its own in the next 3 to 5 days. If it does not resolve then you will need to return to the ER to have a catheter change and continuous irrigation. Please return to the hospital should you have any further concerns Disposition Disposition: Home, Self Care
[2022-08-16] MEDS: Cephalexin 250 MG Capsule 500 MG PO (02:01)
--- NOTE | 2022-08-22 16:48 | CM.ED ---
Addendum entered by Rima Blakely 08/23/22 15:20: Note: SW called Maria R Bonds's phone x2. Original Note: SW followed up with patient's recent ED visit. SW called Sapna Bonds with phone [phone]. Number disconnected. SW called this number twice (4:45pm). ROSHNI called Maria R Bonds at 4:46 phone [phone] and the number was not recognized. Rima PALOMARES
== END 2022-08-16 02:55 | disposition home or self-care (01) ==
PROVIDERS: Emergency Provider Emergency Medicine; PCP Pediatrics; Visit Provider Emergency Medicine
DX: T83.511A Infection and inflammatory reaction due to indwelling urethral catheter, initial encounter (principal); G82.50 Quadriplegia, unspecified; Z93.3 Colostomy status; G90.4 Autonomic dysreflexia; R31.0 Gross hematuria; Z79.82 Long term (current) use of aspirin; Z79.01 Long term (current) use of anticoagulants; Z79.899 Other long term (current) drug therapy; Z87.891 Personal history of nicotine dependence
CPT/HCPCS: 80048; 81001; 87077; 87086; 87088; 87186; 99283; A4216

== ENCOUNTER 2022-09-04 00:42 | Emergency (ER) | payer MEDICAID, SELFPAY ==
[2022-09-04 00:42] VITALS: PULSE 68; RESP 17; RESP 18; TEMP 36.9; O2SAT 96; BMI 40.6
--- NOTE | 2022-09-04 01:00 | EDS_ITS ---
HPI HPI - Female History of Present Illness Chief Complaint: Complaint Narrative Narrative: Patient is a quadriplegic who has a urinary indwelling catheter, today she woke up from her nap and noticed that she did not have any urine in the bag, she then started drinking fluids because she thought she might be dehydrated due to her extended nap, then she noticed that she was feeling wet in her groin due to lots of urine spilling out around the catheter, and they suspect there is a malfunction of it and she would like it changed. She denies any systemic symptoms or fevers or feeling poorly. 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 Neck fracture New onset seizure Paraplegic spinal paralysis Single kidney Urinary tract infection Wounds, multiple Home Medications acetaminophen 325 mg tablet 650 mg PO Q4H PRN pain/fever 07/17/21 [History Last Taken Unknown] [id number] 1 tab PO DAILY 07/17/21 [History Last Taken Unknown] ascorbic acid (vitamin C) 500 mg tablet 500 mg PO BID 07/17/21 [History Last Taken Unknown] aspirin 81 mg tablet,delayed release 81 mg PO DAILY 07/17/21 [History Last Taken Unknown] baclofen 20 mg tablet 40 mg PO TID 07/17/21 [History Last Taken Unknown] benzocaine-benzethonium 20 %-0.2 % topical aerosol 1 spray topical QWEEK 07/17/21 [History Last Taken Unknown] calcium carbonate 500 mg-vitamin D3 5 mcg (200 unit) tablet (Calcium 500 + D) 2 tab PO BID 07/17/21 [History Last Taken Unknown] captopril 12.5 mg tablet 3.125 mg PO DAILY PRN PRN autonomic dysreflexia 07/17/21 [History Last Taken Unknown] cholecalciferol (vitamin D3) 25 mcg (1,000 unit) capsule (Vitamin D3) 25 mcg PO DAILY 07/17/21 [History Last Taken Unknown] docusate sodium 100 mg capsule 100 mg PO TID 07/17/21 [History Last Taken Unknown] enoxaparin 40 mg/0.4 mL subcutaneous syringe 40 mg subcut Q12H 07/17/21 [History Last Taken Unknown] escitalopram oxalate 20 mg tablet 20 mg PO DAILY 07/17/21 [History Last Taken Unknown] famotidine 20 mg tablet (Pepcid) 20 mg PO BID 07/17/21 [History Last Taken Unknown] ferrous sulfate 325 mg (65 mg iron) capsule,extended release 325 mg PO TID 07/17/21 [History Last Taken Unknown] magnesium hydroxide 400 mg/5 mL oral suspension 30 ml PO DAILY PRN Constipation 07/17/21 [History Last Taken Unknown] melatonin 12 mg tablet 6 mg PO QHS PRN PRN Insomnia 07/17/21 [History Last Taken Unknown] multivitamin with minerals 1 tab PO DAILY 07/17/21 [History Last Taken Unknown] nitroglycerin 2 % transdermal ointment 1 inch transdermal PRN PRN autonomic dysreflexia 07/17/21 [History Last Taken Unknown] polyethylene glycol 3350 17 gram oral powder packet 17 g PO BID 07/17/21 [History Last Taken Unknown] sennosides 8.6 mg tablet (senna) 17.2 mg PO BID 07/17/21 [History Last Taken Unknown] tizanidine 4 mg capsule 4 mg PO TID 07/17/21 [History Last Taken Unknown] zinc sulfate 220 mg capsule 220 mg PO BID 07/17/21 [History Last Taken Unknown] ondansetron 4 mg disintegrating tablet 4 mg PO Q6H PRN PRN Nausea #20 tabs 09/01/21 [Rx Last Taken Unknown] ciprofloxacin HCl 500 mg tablet 500 mg PO BID #14 tabs 11/07/21 [Rx Last Taken Unknown] doxycycline hyclate 100 mg capsule 100 mg PO BID #14 caps 11/07/21 [Rx Last Taken Unknown] levetiracetam 750 mg tablet 750 mg PO BID #60 tabs 11/07/21 [Rx Last Taken Unknown] methenamine hippurate 1 gram tablet (Hiprex) 1 g PO Q12H #180 tabs 11/07/21 [Rx Last Taken Unknown] cephalexin 500 mg capsule 500 mg PO Q6 #40 caps 01/21/22 [Rx Last Taken Unknown] sulfamethoxazole 800 mg-trimethoprim 160 mg tablet (Bactrim DS) 1 tab PO BID #20 tabs 01/21/22 [Rx Last Taken Unknown] cephalexin 500 mg capsule 500 mg PO Q6 #40 CAPSULES 04/17/22 [Rx Last Taken Unknown] sulfamethoxazole 800 mg-trimethoprim 160 mg tablet (Bactrim DS) 1 tab PO BID #20 tabs 04/17/22 [Rx Last Taken Unknown] hydroxyzine pamoate 25 mg capsule (Vistaril) 25 mg PO QHS PRN insomnia #10 caps 04/27/22 [Rx Last Taken Unknown] nitrofurantoin monohydrate/macrocrystals 100 mg capsule (Macrobid) 100 mg PO Q12H 7 days #14 caps 06/10/22 [Rx Last Taken Unknown] sulfamethoxazole 800 mg-trimethoprim 160 mg tablet 1 tab PO BID #14 TABLETS 06/24/22 [Rx Last Taken Unknown] nystatin 100,000 unit/gram topical powder 1 applic topical BID #30 grams 07/26/22 [Rx Last Taken Unknown] cephalexin 500 mg capsule 500 mg PO TID 7 days #21 caps 08/16/22 [Rx Last Taken Unknown] Allergy/AdvReac Type Severity Reaction Status Date / Time No Known Allergies Allergy Verified 08/15/22 23:19 Surgical History H/O thumb surgery S/P cervical spinal fusion Social History household members: family Smoking Status: Former smoker alcohol intake: never substance use type: does not use ROS ROS ED Constitutional Constitutional ED: Denies chills or fever(s) ENT ENT ED: Denies rhinorrhea or sore throat Cardiovascular Cardiovascular: Denies chest pain or palpitations Respiratory/Chest Respiratory/Chest: Denies cough or dyspnea Gastrointestinal Gastrointestinal: Denies abdominal pain, nausea or vomiting Genitourinary Genitourinary ED: Reports as per HPI and urinary incontinence; Denies hematuria Integumentary Denies abscess or rash Neurologic Neurologic: Reports paresthesias and weakness; Denies headache(s) EXAM Physical Exam Const Vital Signs: 09/04/22 00:42 09/04/22 00:42 09/04/22 03:21 Temperature 98.4 F Temperature Source Oral Pulse Rate 68 72 Respiratory Rate 18 17 18 Pulse Ox 96 97 Oxygen Delivery Method Room Air Positive well nourished, well developed and obese General Appearance ED: well developed and NAD Nutritional Appearance: obese Eyes PERRL and EOMs intact bilaterally Resp normal respiratory effort GI normal to inspection, nondistended, normoactive bowel sounds, soft to palpation and non-distended Narrative: Ma catheter in place without active leaking of urine around it at this time. No hematuria. Neuro Neuro Narrative: Quadriplegia functionally, able to use arms. Cranial nerves intact. Psych mental status grossly normal Skin no rashes or lesions noted and no wounds MDM MDM MDM Narrative Medical decision making narrative: I had nurses discontinue her catheter and replace it with a fresh 1, and sent a urine culture. She is not have any fevers or symptoms and I do not think sending a urinalysis is necessary since it will probably be abnormal since she is chronically colonized. Discharge Plan Triage Chief Complaint: Complaint ED Provider: Hermelindo Mckenna Dx/Rx/DC Orders Clinical Impression: Malfunction of Ma catheter Instructions: ED Ma Catheter, Care Prescriptions: No Action sennosides [senna] 8.6 mg Tablet 17.2 mg PO BID acetaminophen 325 mg Tablet 650 mg PO Q4H PRN (Reason: pain/fever) polyethylene glycol 3350 17 gram Powder In Packet 17 g PO BID aspirin 81 mg Tablet,Delayed Release (Dr/Ec) 81 mg PO DAILY baclofen 20 mg Tablet 40 mg PO TID magnesium hydroxide 400 mg/5 mL Suspension 30 ml PO DAILY PRN (Reason: Constipation) ascorbic acid (vitamin C) 500 mg Tablet 500 mg PO BID nitroglycerin 2 % Ointment 1 inch TRANSDERMAL PRN PRN (Reason: autonomic dysreflexia) multivitamin with minerals Tablet 1 tab PO DAILY zinc sulfate 220 mg Capsule 220 mg PO BID cholecalciferol (vitamin D3) [Vitamin D3] 25 mcg (1,000 unit) Capsule 25 mcg PO DAILY tizanidine 4 mg Capsule 4 mg PO TID melatonin 12 mg Tablet 6 mg PO QHS PRN PRN (Reason: Insomnia) [id number] Tablet 1 tab PO DAILY famotidine [Pepcid] 20 mg Tablet 20 mg PO BID captopril 12.5 mg Tablet 3.125 mg PO DAILY PRN PRN (Reason: autonomic dysreflexia) docusate sodium 100 mg Capsule 100 mg PO TID ferrous sulfate 325 mg (65 mg iron) Capsule, Extended Release 325 mg PO TID enoxaparin 40 mg/0.4 mL Syringe 40 mg SUBCUT Q12H escitalopram oxalate 20 mg Tablet 20 mg PO DAILY calcium carbonate-vitamin D3 [Calcium 500 + D] 500 mg(1,250mg) -200 unit Tablet 2 tab PO BID benzocaine-benzethonium 20-0.2 % Aerosol 1 spray TOPICAL QWEEK Rx Instructions: every other week ondansetron 4 MG tablet 4 mg PO Q6H PRN PRN (Reason: Nausea) Qty: 20 0RF ciprofloxacin HCl 500 mg tablet 500 mg PO BID Qty: 14 0RF methenamine hippurate [Hiprex] 1 gram tablet 1 g PO Q12H Qty: 180 1RF Rx Instructions: can be continued indefinitely. For UTI prevention. doxycycline hyclate 100 mg capsule 100 mg PO BID Qty: 14 0RF levetiracetam 750 mg Tablet 750 mg PO BID Qty: 60 2RF sulfamethoxazole-trimethoprim [Bactrim DS] 800-160 mg tablet 1 tab PO BID Qty: 20 0RF cephalexin 500 mg capsule 500 mg PO Q6 Qty: 40 0RF sulfamethoxazole-trimethoprim [Bactrim DS] 800-160 mg tablet 1 tab PO BID Qty: 20 0RF cephalexin [cephalexin] 500 MG capsule 500 mg PO Q6 Qty: 40 0RF hydroxyzine pamoate [Vistaril] 25 mg capsule 25 mg PO QHS PRN (Reason: insomnia) Qty: 10 0RF nitrofurantoin monohyd/m-cryst [Macrobid] 100 mg capsule 100 mg PO Q12H 7 Days Qty: 14 0RF Rx Instructions: must administer with a meal/food sulfamethoxazole-trimethoprim [sulfamethoxazole-trimethoprim] 1 TABLET tablet 1 tab PO BID Qty: 14 0RF nystatin 100,000 unit/gram powder 1 applic topical BID Qty: 30 0RF cephalexin 500 mg capsule 500 mg PO TID 7 Days Qty: 21 0RF Primary Care Provider: Edgard Amato Referrals: Edgard Amato MD [Primary Care Provider] - Disposition Disposition: Home, Self Care
--- NOTE | 2022-09-04 02:13 | ED.RN ---
physicians called for transport, ETA 5 hours.
--- NOTE | 2022-09-04 03:16 | ED.RN ---
PT'S MOTHER CALLED INTO ED STATING PT HAD H/A AND NEEDED MEDICATION. THIS RN WENT INTO PT'S ROOM, REPOSITIONED PT AND PROVIDED NECK ROLL, PER HER REQUEST. REMINDED PT OF CALL LIGHT ACCESS. DENIES OTHER NEEDS.
[2022-09-04 03:21] VITALS: PULSE 72; RESP 18; O2SAT 97
[2022-09-04 08:43] VITALS: BP 128/54; PULSE 70; RESP 17; O2SAT 97
== END 2022-09-04 08:52 | disposition home or self-care (01) ==
PROVIDERS: Emergency Provider Emergency Medicine; PCP Pediatrics; Visit Provider Emergency Medicine
DX: T83.011A Breakdown (mechanical) of indwelling urethral catheter, initial encounter (principal); G82.50 Quadriplegia, unspecified; Z93.3 Colostomy status; Z87.891 Personal history of nicotine dependence; Y73.2 Prosthetic and other implants, materials and accessory gastroenterology and urology devices associated with adverse incidents; G90.4 Autonomic dysreflexia; Z79.899 Other long term (current) drug therapy; Z79.82 Long term (current) use of aspirin
CPT/HCPCS: 51702; 87086; 87088; 99285

== ENCOUNTER 2022-09-12 18:31 | Inpatient (IN) | payer MEDICAID, SELFPAY ==
[2022-09-12] VITALS (8 sets, daily range): BP systolic 109–148; BP diastolic 57–102; PULSE 64–68; RESP 12–18; TEMP 36.1–37.6; O2SAT 94–99; BMI 38.4
--- NOTE | 2022-09-12 18:59 | EKG12_ITS ---
Test Reason : ALT LOC Blood Pressure : / mmHG Vent. Rate : 068 BPM Atrial Rate : 068 BPM P-R Int : 178 ms QRS Dur : 088 ms QT Int : 406 ms P-R-T Axes : 069 047 052 degrees QTc Int : 431 ms Normal sinus rhythm Normal ECG Confirmed by BROOK AYALA, SRAVANI ([id number]), clinical editor BAMBI KHALIL ([id number]) on 09/16/2022 10:07:27 AM Referred By: Confirmed By:GIO DOE MD
--- NOTE | 2022-09-12 18:59 | CT_ITS ---
INDICATION: ams EXAMINATION: CT BRAIN - CT Head or Brain W/O Contrast Injection TECHNIQUE: Multiple axial images were obtained of the head without intravenous contrast. A radiation dose optimization technique was used for this scan. IV Contrast dosage and agent: None. RADIATION DOSAGE (If Supplied By Facility): CTDIvol = ( 44.99 ) mGy, DLP = ( 829.85 ) mGycm COMPARISON: 05/05/2022 FINDINGS: HEMISPHERES: 1. The cerebral parenchyma, ventricular system, subarachnoid spaces have normal configuration and density. There is a normal gyral pattern. There is normal smith/white differentiation. No midline shift.. 2. The hemispheric white matter has normal appearance. 3. No intraparenchymal mass, hemorrhage, or acute territorial infarct. CEREBELLUM - BRAINSTEM: The cerebellum, brainstem, basilar and suprasellar cisterns have normal appearance. No Chiari malformation. PITUITARY: Infundibulum and pituitary have normal configuration. Midline structures appear normal. CSF SPACES: Appropriate for age. No hydrocephalus. Basal cisterns are patent. VESSELS: 1. No significant vascular calcifications in the cavernous carotid vessels. 2. No hyperdense vascular signs noted.. ORBITS AND PARANASAL SINUSES: 1. Normal appearance of the bony orbits. Normal appearance of the globes and retrobulbar soft tissues.. 2. Paranasal sinuses are clear. BONY ELEMENTS: Bony elements of the cranial vault, facial skeleton and skull base have normal appearance. SCALP AND SOFT TISSUES: Normal appearance of the soft tissues of the scalp and the visualized face OTHER: None ASPECTS Score for Acute Strokes: 10 CT/Brain/Head without Contrast IMPRESSION: 1. Stable exam. Normal CT examination of the brain 2. No intracranial mass, hemorrhage or acute territorial infarct. 3. No radiographically significant sinus disease.. Electronically Signed: Shane Nguyen MD at 19:56 EDT ,
--- NOTE | 2022-09-12 19:01 | EDS_ITS ---
HPI History of Present Illness Chief Complaint: Alt LOC Narrative Narrative: 21-year-old female quadriplegic bedbound presenting with altered mental status. Her mother is not in the room when I am examining her. I cannot get any history except from the nurse. She told me that her mother stated that she had been fine in the morning and over the course of the day started staring. She has been sleeping more. She is not had a fever that was reported. Patient has indwelling Ma catheter which is chronic. She has history of UTIs. There is no history of trauma given to me. Patient is on Lovenox for DVT PE prophylaxis. [facility] Medical History (Updated 09/12/22 @ 21:[address] 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 Neck fracture New onset seizure Paraplegic spinal paralysis Single kidney Urinary tract infection Wounds, multiple Home Medications acetaminophen 325 mg tablet 650 mg PO Q4H PRN pain/fever 07/17/21 [History Last Taken Unknown] tilsm-j-ejsrhgudtesvi 1 tab PO DAILY 07/17/21 [History Last Taken Unknown] ascorbic acid (vitamin C) 500 mg tablet 500 mg PO BID 07/17/21 [History Last Taken Unknown] aspirin 81 mg tablet,delayed release 81 mg PO DAILY 07/17/21 [History Last Taken Unknown] baclofen 20 mg tablet 40 mg PO TID 07/17/21 [History Last Taken Unknown] benzocaine-benzethonium 20 %-0.2 % topical aerosol 1 spray topical QWEEK 07/17/21 [History Last Taken Unknown] calcium carbonate 500 mg-vitamin D3 5 mcg (200 unit) tablet (Calcium 500 + D) 2 tab PO BID 07/17/21 [History Last Taken Unknown] captopril 12.5 mg tablet 3.125 mg PO DAILY PRN PRN autonomic dysreflexia 07/17/21 [History Last Taken Unknown] cholecalciferol (vitamin D3) 25 mcg (1,000 unit) capsule (Vitamin D3) 25 mcg PO DAILY 07/17/21 [History Last Taken Unknown] docusate sodium 100 mg capsule 100 mg PO TID 07/17/21 [History Last Taken Unknown] enoxaparin 40 mg/0.4 mL subcutaneous syringe 40 mg subcut Q12H 07/17/21 [History Last Taken Unknown] escitalopram oxalate 20 mg tablet 20 mg PO DAILY 07/17/21 [History Last Taken Unknown] famotidine 20 mg tablet (Pepcid) 20 mg PO BID 07/17/21 [History Last Taken Unknown] ferrous sulfate 325 mg (65 mg iron) capsule,extended release 325 mg PO TID 07/17/21 [History Last Taken Unknown] magnesium hydroxide 400 mg/5 mL oral suspension 30 ml PO DAILY PRN Constipation 07/17/21 [History Last Taken Unknown] melatonin 12 mg tablet 6 mg PO QHS PRN PRN Insomnia 07/17/21 [History Last Taken Unknown] multivitamin with minerals 1 tab PO DAILY 07/17/21 [History Last Taken Unknown] nitroglycerin 2 % transdermal ointment 1 inch transdermal PRN PRN autonomic dysreflexia 07/17/21 [History Last Taken Unknown] polyethylene glycol 3350 17 gram oral powder packet 17 g PO BID 07/17/21 [Histo ry Last Taken Unknown] sennosides 8.6 mg tablet (senna) 17.2 mg PO BID 07/17/21 [History Last Taken Unknown] tizanidine 4 mg capsule 4 mg PO TID 07/17/21 [History Last Taken Unknown] zinc sulfate 220 mg capsule 220 mg PO BID 07/17/21 [History Last Taken Unknown] ondansetron 4 mg disintegrating tablet 4 mg PO Q6H PRN PRN Nausea #20 tabs 09/01/21 [Rx Last Taken Unknown] ciprofloxacin HCl 500 mg tablet 500 mg PO BID #14 tabs 11/07/21 [Rx Last Taken Unknown] doxycycline hyclate 100 mg capsule 100 mg PO BID #14 caps 11/07/21 [Rx Last Taken Unknown] levetiracetam 750 mg tablet 750 mg PO BID #60 tabs 11/07/21 [Rx Last Taken Unknown] methenamine hippurate 1 gram tablet (Hiprex) 1 g PO Q12H #180 tabs 11/07/21 [Rx Last Taken Unknown] cephalexin 500 mg capsule 500 mg PO Q6 #40 caps 01/21/22 [Rx Last Taken Unknown] sulfamethoxazole 800 mg-trimethoprim 160 mg tablet (Bactrim DS) 1 tab PO BID #20 tabs 01/21/22 [Rx Last Taken Unknown] cephalexin 500 mg capsule 500 mg PO Q6 #40 CAPSULES 04/17/22 [Rx Last Taken Unknown] sulfamethoxazole 800 mg-trimethoprim 160 mg tablet (Bactrim DS) 1 tab PO BID #20 tabs 04/17/22 [Rx Last Taken Unknown] hydroxyzine pamoate 25 mg capsule (Vistaril) 25 mg PO QHS PRN insomnia #10 caps 04/27/22 [Rx Last Taken Unknown] nitrofurantoin monohydrate/macrocrystals 100 mg capsule (Macrobid) 100 mg PO Q12H 7 days #14 caps 06/10/22 [Rx Last Taken Unknown] sulfamethoxazole 800 mg-trimethoprim 160 mg tablet 1 tab PO BID #14 TABLETS 06/24/22 [Rx Last Taken Unknown] nystatin 100,000 unit/gram topical powder 1 applic topical BID #30 grams 07/26/22 [Rx Last Taken Unknown] cephalexin 500 mg capsule 500 mg PO TID 7 days #21 caps 08/16/22 [Rx Last Taken Unknown] Allergy/AdvReac Type Severity Reaction Status Date / Time No Known Allergies Allergy Verified 08/15/22 23:19 Surgical History H/O thumb surgery S/P cervical spinal fusion Social History household members: family Smoking Status: Former smoker alcohol intake: never substance use type: does not use ROS ROS ED Review of Systems ROS Unobtainable: due to mental status EXAM Physical Exam Const Vital Signs: 09/12/22 18:32 09/12/22 18:35 09/12/22 18:59 Temperature 99.6 F H 99.6 F H Temperature Source Temporal Temporal Pulse Rate 66 66 Respiratory Rate 14 14 Blood Pressure 148/102 H 148/102 H Blood Pressure Mean 117 117 Pulse Ox 99 99 97 Oxygen Delivery Method Room Air Room Air Room Air 09/12/22 20:20 09/12/22 20:35 09/12/22 21:58 Temperature 97.4 F L 97.6 F L 97 F L Temperature Source Temporal Temporal Temporal Pulse Rate 68 67 Respiratory Rate 12 12 Blood Pressure 118/75 131/83 H Blood Pressure Mean 89 99 Pulse Ox 96 96 Oxygen Delivery Method Room Air Room Air 09/12/22 21:58 Temperature 97 F L Temperature Source Temporal Pulse Rate 67 Respiratory Rate 12 Blood Pressure 131/83 H Blood Pressure Mean 99 Pulse Ox 96 Oxygen Delivery Method Room Air Positive well nourished and obese Constitutional Narrative: Sleeping. General Appearance ED: Negative for pallor Nutritional Appearance: obese HEENT Reports moist mucous membranes Eyes General Eye ED: Negative for pale conjunctiva or scleral icterus Neck no lymphadenopathy Chest Wall inspection of chest normal Resp normal respiratory effort and clear to auscultation bilaterally Auscultation: Negative for rales, rhonchi or wheezes Cardio regular rate and regular rhythm GI normal to inspection, nondistended, normoactive bowel sounds Narrative: Ma catheter in place. There is yellow urine draining into the Ma catheter bag Neuro Sensorium / Orientation: stuporous Skin no wounds General Skin Exam: Negative for jaundice or pallor MDM MDM MDM Narrative Medical decision making narrative: 21-year-old female presenting with altered mental status. She is unable to give much history. Her father is in the room and states he does not live with her but assures me she drinks a lot of water and Sprite. She is not had a fever at home. He spoke with the patient's mother on the phone and she stated that she had not changed any of her catheter bag today she had not had any urinary output. She has been generally weak all day long. Blood work was obtained and her CBC shows a slight leukocytosis at 11.6. Hemoglobin hematocrit are normal. Platelets within normal limits. Coagulation studies normal. Creatinine today is elevated at 4.54 which is new for her. Potassium was normal at 4.8 and sodium was 140. LFTs unremarkable. Glucose 115. EKG sinus rhythm with a ventricular 68 bpm without sign of ischemic change or dysrhythmia. Chest x-ray on my interpretation shows no acute cardiopulmonary process and the radiologist does agree. CT of the brain was ordered as the patient was very confused and she is on Eliquis at home and I was unable to initially get any history. This was negative for acute intercranial process. Patient does have a history of seizure disorder unclear if whether she was postictal or not. There is no reported seizures today. Her lactic acid is within normal limits for this is unlikely. Ammonia level is normal. CPK within normal limits. Patient given 2 L of IV fluids.. Ma catheter was changed due to limited urine output. She has not made any urine as of yet. Because of this I ordered a CT of the abdomen pelvis without contrast to ensure placement. Discussed the patient with the hospitalist for admission given the COLTON and altered mental status. She will follow-up the urinalysis and recommends holding on antibiotics currently. She will also follow-up CT scan. Impression: 1. Altered mental status 2. Acute kidney injury Lab Data Attestation: I reviewed the patient's lab results. Labs: Laboratory Results - last 24 hr 09/12/22 09/12/22 09/12/22 18:45 18:45 18:45 WBC 11.6 H RBC 4.65 Hgb 13.4 Hct 41.8 MCV 89.9 MCH 28.8 MCHC 32.1 RDW Std Deviation 44.5 H RDW Coeff of Anurag 13.4 Plt Count 257 MPV 10.7 Immature Gran % (Auto) 0.300 Neut % (Auto) 76.0 H Lymph % (Auto) 16.0 L [place] % (Auto) 6.6 Eos % (Auto) 0.9 Baso % (Auto) 0.2 Absolute Neuts (auto) 8.8 H Absolute Lymphs (auto) 1.85 Nucleated RBC % 0 PT 14.2 INR 1.1 APTT 31.3 Sodium 140 Potassium 4.8 Chloride 112 H Carbon Dioxide 19.0 L Anion Gap 9 BUN 44 H Creatinine 4.54 H Estim Creat Clear Calc 0.00 Est GFR (MDRD) Af Amer 16 L Est GFR (MDRD) Non-Af 13 L BUN/Creatinine Ratio 9.7 L Glucose 115 H Lactic Acid Calcium 9.2 Total Bilirubin 0.30 AST 9 L ALT 17 Alkaline Phosphatase 82 Ammonia Total Creatine Kinase Troponin I High Sens 3 Total Protein 7.2 Albumin 3.0 L Globulin 4.2 Albumin/Globulin Ratio 0.7 L 09/12/22 09/12/22 09/12/22 18:45 18:45 19:15 WBC RBC Hgb Hct MCV MCH MCHC RDW Std Deviation RDW Coeff of Anurag Plt Count MPV Immature Gran % (Auto) Neut % (Auto) Lymph % (Auto) [place] % (Auto) Eos % (Auto) Baso % (Auto) Absolute Neuts (auto) Absolute Lymphs (auto) Nucleated RBC % PT INR APTT Sodium Potassium Chloride Carbon Dioxide Anion Gap BUN Creatinine Estim Creat Clear Calc Est GFR (MDRD) Af Amer Est GFR (MDRD) Non-Af BUN/Creatinine Ratio Glucose Lactic Acid 0.7 Calcium Total Bilirubin AST ALT Alkaline Phosphatase Ammonia 30.0 Total Creatine Kinase 35 Troponin I High Sens Total Protein Albumin Globulin Albumin/Globulin Ratio Radiography Diagnostic Testing: Clinical Impression(s) from Imaging Studies Brain CT 09/12/22 18:59 IMPRESSION: 1. Stable exam. Normal CT examination of the brain 2. No intracranial mass, hemorrhage or acute territorial infarct. 3. No radiographically significant sinus disease.. Electronically Signed: Shane Nguyen MD at 19:56 EDT , Chest X-Ray 09/12/22 19:34 IMPRESSION: 1. Shallow inspiration, mild basilar atelectasis. No focal infiltrate, congestive failure or effusion. Electronically Signed: Shane Nguyen MD at 19:50 EDT , Discharge Plan Triage Chief Complaint: Alt LOC ED Provider: Casimiro Alvarado Dx/Rx/DC Orders Prescriptions: No Action sennosides [senna] 8.6 mg Tablet 17.2 mg PO BID acetaminophen 325 mg Tablet 650 mg PO Q4H PRN (Reason: pain/fever) polyethylene glycol 3350 17 gram Powder In Packet 17 g PO BID aspirin 81 mg Tablet,Delayed Release (Dr/Ec) 81 mg PO DAILY baclofen 20 mg Tablet 40 mg PO TID magnesium hydroxide 400 mg/5 mL Suspension 30 ml PO DAILY PRN (Reason: Constipation) ascorbic acid (vitamin C) 500 mg Tablet 500 mg PO BID nitroglycerin 2 % Ointment 1 inch TRANSDERMAL PRN PRN (Reason: autonomic dysreflexia) multivitamin with minerals Tablet 1 tab PO DAILY zinc sulfate 220 mg Capsule 220 mg PO BID cholecalciferol (vitamin D3) [Vitamin D3] 25 mcg (1,000 unit) Capsule 25 mcg PO DAILY tizanidine 4 mg Capsule 4 mg PO TID melatonin 12 mg Tablet 6 mg PO QHS PRN PRN (Reason: Insomnia) [id number] Tablet 1 tab PO DAILY famotidine [Pepcid] 20 mg Tablet 20 mg PO BID captopril 12.5 mg Tablet 3.125 mg PO DAILY PRN PRN (Reason: autonomic dysreflexia) docusate sodium 100 mg Capsule 100 mg PO TID ferrous sulfate 325 mg (65 mg iron) Capsule, Extended Release 325 mg PO TID enoxaparin 40 mg/0.4 mL Syringe 40 mg SUBCUT Q12H escitalopram oxalate 20 mg Tablet 20 mg PO DAILY calcium carbonate-vitamin D3 [Calcium 500 + D] 500 mg(1,250mg) -200 unit Tablet 2 tab PO BID benzocaine-benzethonium 20-0.2 % Aerosol 1 spray TOPICAL QWEEK Rx Instructions: every other week ondansetron 4 MG tablet 4 mg PO Q6H PRN PRN (Reason: Nausea) Qty: 20 0RF ciprofloxacin HCl 500 mg tablet 500 mg PO BID Qty: 14 0RF methenamine hippurate [Hiprex] 1 gram tablet 1 g PO Q12H Qty: 180 1RF Rx Instructions: can be continued indefinitely. For UTI prevention. doxycycline hyclate 100 mg capsule 100 mg PO BID Qty: 14 0RF levetiracetam 750 mg Tablet 750 mg PO BID Qty: 60 2RF sulfamethoxazole-trimethoprim [Bactrim DS] 800-160 mg tablet 1 tab PO BID Qty: 20 0RF cephalexin 500 mg capsule 500 mg PO Q6 Qty: 40 0RF sulfamethoxazole-trimethoprim [Bactrim DS] 800-160 mg tablet 1 tab PO BID Qty: 20 0RF cephalexin [cephalexin] 500 MG capsule 500 mg PO Q6 Qty: 40 0RF hydroxyzine pamoate [Vistaril] 25 mg capsule 25 mg PO QHS PRN (Reason: insomnia) Qty: 10 0RF nitrofurantoin monohyd/m-cryst [Macrobid] 100 mg capsule 100 mg PO Q12H 7 Days Qty: 14 0RF Rx Instructions: must administer with a meal/food sulfamethoxazole-trimethoprim [sulfamethoxazole-trimethoprim] 1 TABLET tablet 1 tab PO BID Qty: 14 0RF nystatin 100,000 unit/gram powder 1 applic topical BID Qty: 30 0RF cephalexin 500 mg capsule 500 mg PO TID 7 Days Qty: 21 0RF Primary Care Provider: Edgard Amato Referrals: Edgard Amato MD [Primary Care Provider] -
[2022-09-12] MEDS: 0.9% Normal Saline 1,000 ML 999 ML IV ×3 (19:10→23:35)
--- NOTE | 2022-09-12 19:34 | RAD_ITS ---
INDICATION: ams EXAMINATION/TECHNIQUE: X-RAY - XR Chest 1 View COMPARISON: 07/21/2022 FINDINGS: LIFE-SUPPORT AND LINES: 1. No life-support noted. 2. No pneumothorax. 3. Postoperative changes involving the cervical spine. HEART AND VESSELS: The cardiac silhouette, pulmonary vasculature have normal appearance. No evidence of congestive failure. LUNGS AND PLEURAL SPACES: Lungs are clear. No focal infiltrate, consolidation or effusions. No evidence of pneumothorax. Shallow inspiration and crowding of bronchovascular markings, mild basilar atelectasis. MEDIASTINUM AND HILAR REGIONS: No masses adenopathy noted. No areas of calcification. Visualized upper airway is normal in position. BONY ELEMENTS: No acute bony changes noted. RAD/Chest 1 View (Portable) IMPRESSION: 1. Shallow inspiration, mild basilar atelectasis. No focal infiltrate, congestive failure or effusion. Electronically Signed: Shane Nguyen MD at 19:50 EDT ,
[2022-09-12 19:37] LABS: Absolute Lymphocyte Count 1.85 X10^3/uL (0.83-4.51); Absolute Neutrophil Count 8.8 X10^3/uL (2.0-7.7); Basophil# 0.02 X10^3/uL; Basophil% 0.2 % (0-1); Eosinophils% 0.9 % (0-5); Hematocrit 41.8 % (37-47); Hemoglobin 13.4 g/dL (12.0-15.0); Lymphocyte # 1.85 X10^3/ul (0.83-4.51); Mean Corp Hgb Conc 32.1 g/dL (32-36); Mean Corpuscular Hgb 28.8 pg (27.0-32.0); Mean Corpuscular Volume 89.9 fL (81-99); Mean Platelet Vol. 10.7 fl (6.2-12.0); Monocyte# 0.77 X10^3/uL; Monocyte% 6.6 % (0-10); NRBC Flagged by Analyzer 0 % (0-5); Platelet Count 257 K/mm3 (150-450); RBC Distribution Width CV 13.4 % (11.6-14.6); RBC Distribution Width SD 44.5 fl (35.1-43.9); Red Blood Count 4.65 M/mm3 (4.2-5.4); White Blood Count 11.6 K/mm3 (4.4-11.0)
[2022-09-12 19:46] LABS: International Normalized Ratio 1.1; Partial Thromboplast Time 31.3 Seconds (24.1-36.2); Prothrombin Time (Protime)PT. 14.2 SECONDS (11.7-14.9)
[2022-09-12 19:47] LABS: ALB/GLOB Ratio 0.7 RATIO (0.9-2.4); AST(SGOT) 9 U/L (15-37); Alanine Aminotransfer ALT/SGPT 17 U/L (13-56); Alkaline Phosphatase 82 U/L (45-117); Anion Gap 9 (5-15); BUN 44 mg/dL (7-18); BUN/Creat Ratio 9.7 RATIO (10-20); Calcium,Total 9.2 mg/dL (8.5-10.1); Chloride 112 mmol/L (98-107); Creatinine, Serum 4.54 mg/dL (0.55-1.02); EST Glomerular Filtration Rate 13 mL/min (>60); Est Glom Filt Rate - Afr Amer 16 mL/min (>60); Globulin 4.2 g/dL (2.2-4.2); Glucose 115 mg/dL (74-106); Potassium 4.8 mmol/L (3.5-5.1); Protein, Total 7.2 g/dL (6.4-8.2); Sodium Level 140 mmol/L (136-145); Troponin-I HS 3 pg/mL (3.0-54.0)
[2022-09-12 19:54] LABS: Lactic Acid 0.7 mmol/L (0.4-1.9)
[2022-09-12] MEDS: Ondansetron 4 MG/2 ML Vial IV (20:18)
[2022-09-12 21:00] LABS: CPK Total, Creatine Kinase 35 U/L (26-192)
--- NOTE | 2022-09-12 21:04 | CT_ITS ---
INDICATION: abdominal pain EXAMINATION: CT ABDOMEN AND PELVIS WITHOUT CONTRAST - CT Abdomen And Pelvis W/O Contrast Injection TECHNIQUE: Helically acquired images were obtained of the abdomen and pelvis without oral or IV contrast. A radiation dose optimization technique was used for this scan. IV Contrast dosage and agent: None. Oral contrast: None. RADIATION DOSAGE (If Supplied By Facility): CTDIvol = ( 23.19 ) mGy, DLP = ( 1407.86 ) mGycm COMPARISON: 04/03/2015 FINDINGS: LOWER CHEST: Mild atelectasis at the lung bases. No cardiomegaly or pericardial effusion. LIVER: The liver has normal configuration and density given the limitation of noncontrast exam. No focal mass. GALLBLADDER AND BILIARY TREE: No calcified gallstones. No gallbladder distension or wall edema. No intra- or extrahepatic biliary ductal dilation. PANCREAS: No focal cystic or solid mass. SPLEEN: Normal size without focal cystic or solid mass. ADRENAL GLANDS: No nodules. KIDNEYS AND URETERS: There is a solitary LEFT kidney. Coarse desiccation present within the midpole of the LEFT kidney measuring approximately 7 mm in maximal dimension. There however is hydronephrosis and hydroureter to the level of the LEFT UVJ, there is a obstructing LEFT UVJ stone measuring approximately 4.5 mm. RIGHT kidney is absent. PERITONEUM: No ascites or free air. No other fluid collection. BOWEL: No evidence of acute appendicitis. No stomach or bowel distension. LEFT lower quadrant ostomy is present. LYMPH NODES: No enlarged mesenteric or retroperitoneal lymph nodes. VESSELS: Aorta is non-dilated. URINARY BLADDER: Ma catheter in place. REPRODUCTIVE ORGANS: No pelvic masses. ABDOMINAL WALL: No discrete abdominal or pelvic wall hernia. BONES: No lytic or blastic abnormality. CT/Abdomen/Pelvis without Cont IMPRESSION: 1. Solitary LEFT kidney, coarse calcifications present within the minor calyces of the LEFT kidney, however hydronephrosis and hydroureter to the level of the LEFT UVJ is noted which is contributed by an obstructing LEFT UVJ calcification measuring 4.5 mm. 2. No masses bowel obstruction abscess free fluid or free air. LEFT lower quadrant ostomy noted. 3. No radiodense calcifications in the gallbladder. 4. Mild basilar atelectasis. Electronically Signed: Shane Nguyen MD at 22:49 EDT ,
--- NOTE | 2022-09-12 21:54 | HP.PCM.HOS_ITS ---
HPI - General General Date of Admission: 09/12/22 Date of Service: 09/12/22 Chief Complaint: Encephalopathy, decreased UOP. 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 Work-up in the ED included T99.6 Max, heart rate 64, BP 148/102, respiratory rate 14, 99% on room air, CBC with WC 11.6, hemoglobin 13.4, platelet 257 with left shift, unremarkable coags, CMP with chloride 112, carbon dioxide 19, BUN/creatinine 44/4.54 with prior creatinine baseline 0.7-0.9 with most recent creatinine checked 08/16/2022 0.96 at that time, glucose 115, lactic acid 0.7, unremarkable hepatic profile, ammonia level 30, troponin 3, blood culture x2 pending per ED, chest x-ray with postoperative changes involving the cervical spine with otherwise no acute cardiopulmonary findings, CT brain with stable appearance with no acute intracranial finding, blood culture x2 pending per ED, CPK 35, UDS pending upon requested evaluation of patient, UA pending upon requested evaluation of patient, UCx pending per ED, CT abdomen and pelvis with noted solid her left kidney, coarse calcifications present within the minor calyces of the left kidney, however hydronephrosis and hydroureter to the level of the left UVJ noted which is contributed by an obstructing left UVJ calcification measuring 4.5 mm, left lower quadrant ostomy noted with no masses, bowel obstruction, abscess, free air or free fluid noted, mild bibasilar atelectasis. In the ED they replaced the catheter and since have been unable to get any new urine and family notes that she has had notably recent poor urine output. In the ED patient ministered 2 L normal saline bolus as well as Zofran 4 mg IV x1. Given CT findings upon admission hospitalist service contacted Dr. Rodriguez who noted intention for stent placement in AM. 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 Neck fracture New onset seizure Paraplegic spinal paralysis Single kidney Urinary tract infection Wounds, multiple Home Medications acetaminophen 325 mg tablet 650 mg PO Q4H PRN pain/fever 07/17/21 [History Last Taken Unknown] zevlb-t-zhamrvfvjyfzo 1 tab PO DAILY bladder spasms 07/17/21 [History Last Taken 09/12/22] ascorbic acid (vitamin C) 500 mg tablet 500 mg PO BID supplement 07/17/21 [History Last Taken 09/12/22] aspirin 81 mg tablet,delayed release 81 mg PO DAILY heart health 07/17/21 [History Last Taken 09/12/22] baclofen 20 mg tablet 40 mg PO TID muscle spasms 07/17/21 [History Last Taken 09/12/22] calcium carbonate 500 mg-vitamin D3 5 mcg (200 unit) tablet (Calcium 500 + D) 2 tab PO BID supplement 07/17/21 [History Last Taken 09/12/22] captopril 12.5 mg tablet 3.125 mg PO DAILY PRN PRN autonomic dysreflexia 07/17/21 [History Last Taken Unknown] cholecalciferol (vitamin D3) 25 mcg (1,000 unit) capsule (Vitamin D3) 25 mcg PO DAILY supplement 07/17/21 [History Last Taken 09/12/22] docusate sodium 100 mg capsule 100 mg PO TID PRN stool softener 07/17/21 [History Last Taken Unknown] enoxaparin 40 mg/0.4 mL subcutaneous syringe 40 mg subcut Q12H prevent blood clots 07/17/21 [History Last Taken 09/12/22] escitalopram oxalate 20 mg tablet 20 mg PO DAILY depression 07/17/21 [History Last Taken 09/12/22] nitroglycerin 2 % transdermal ointment 1 inch transdermal PRN PRN autonomic dysreflexia 07/17/21 [History Last Taken Unknown] tizanidine 4 mg capsule 4 mg PO BID paraplegia 07/17/21 [History Last Taken 09/12/22] levetiracetam 750 mg tablet 750 mg PO BID seizures 09/12/22 [History Last Taken 09/12/22] methenamine hippurate 1 gram tablet (Hiprex) 1 g PO Q12H UTI prevention 09/12/22 [History Last Taken 09/12/22] nystatin 100,000 unit/gram topical powder 1 applic topical BID skin irritation 09/12/22 [History Last Taken Unknown] Allergy/AdvReac Type Severity Reaction Status Date / Time No Known Allergies Allergy Verified 08/15/22 23:19 other (Patient per prior history without marked maternal or paternal family history including HD, DM, CA.) Surgical History H/O thumb surgery S/P cervical spinal fusion Social History household members: family Smoking Status: Former smoker alcohol intake: never substance use type: does not use ROS Review of Systems ROS Unobtainable: due to encephalopathy Vital Signs Vital Signs Vital Signs: 09/12/22 18:32 09/12/22 18:35 09/12/22 18:59 Temperature 99.6 F H 99.6 F H Temperature Source Temporal Temporal Pulse Rate 66 66 Respiratory Rate 14 14 Blood Pressure 148/102 H 148/102 H Blood Pressure Mean 117 117 Pulse Ox 99 99 97 Oxygen Delivery Method Room Air Room Air Room Air 09/12/22 20:20 09/12/22 20:35 Temperature 97.4 F L 97.6 F L Temperature Source Temporal Temporal Pulse Rate 68 Respiratory Rate 12 Blood Pressure 118/75 Blood Pressure Mean 89 Pulse Ox 96 Oxygen Delivery Method Room Air Weight Weight: 0 oz Body Mass Index (BMI) 0.0 Physical Exam Narrative Physical Examination: General: Awake and somewhat to stimuli but very lethargic, intermittently alert, unable to answer any orientation questions, will follow some commands, seated upright in ED bed, encephalopathic. Skin: Normal color, normal turgor, no icterus, no cyanosis except significant perineal and sacral chronic wounds. HEENT: AT/NC, EOM unable to be assessed well given encephalopathy, PERRLA, dry MM, no carotid bruits or JVD noted; however, difficult exam given thickened neck. Lungs: Diminished, greater bases, mildly increased respiratory rate but no distress, no rales, ronchi or wheezing. Heart: Regular rate and rhythm; no gallop, rub audible. Abdomen: Soft, obese, no grimacing with palpation of the abdomen, difficult assess distention given habitus, distant bowel sounds, no obvious HSM however habitus makes evaluation difficult. Extremities: No cyanosis, no clubbing, bilateral pedal to distal umanzor edema. Neurological: Awake and somewhat to stimuli but very lethargic, intermittently alert, unable to answer any orientation questions, will follow some commands, seated upright in ED bed, encephalopathic, cognitive function not baseline intact; pupils equally reactive to light and accommodation, difficult to assess cranial nerves given encephalopathy, complete quadriplegia, strength accordingly severely globally decreased. Psychiatric: Affect appears fatigued, lethargic, no acute evidence of depressive or anxiety feelings. Results Lab / Micro Data Result Diagrams: 09/12/22 18:45 09/12/22 18:45 Labs: Laboratory Results - last 24 hr 09/12/22 18:45: WBC 11.6 H, RBC 4.65, Hgb 13.4, Hct 41.8, MCV 89.9, MCH 28.8, MCHC 32.1, RDW Std Deviation 44.5 H, RDW Coeff of Anurag 13.4, Plt Count 257, MPV 10.7, Immature Gran % (Auto) 0.300, Neut % (Auto) 76.0 H, Lymph % (Auto) 16.0 L, [place] % (Auto) 6.6, Eos % (Auto) 0.9, Baso % (Auto) 0.2, Absolute Neuts (auto) 8.8 H, Absolute Lymphs (auto) 1.85, Nucleated RBC % 0 09/12/22 18:45: PT 14.2, INR 1.1, APTT 31.3 09/12/22 18:45: Sodium 140, Potassium 4.8, Chloride 112 H, Carbon Dioxide 19.0 L , Anion Gap 9, BUN 44 H, Creatinine 4.54 H, Estim Creat Clear Calc 0.00, Est GFR (MDRD) Af Amer 16 L, Est GFR (MDRD) Non-Af 13 L, BUN/Creatinine Ratio 9.7 L, Glucose 115 H, Calcium 9.2, Total Bilirubin 0.30, AST 9 L, ALT 17, Alkaline Ph osphatase 82, Troponin I High Sens 3, Total Protein 7.2, Albumin 3.0 L, Globulin 4.2, Albumin/Globulin Ratio 0.7 L 09/12/22 18:45: Lactic Acid 0.7 09/12/22 18:45: Total Creatine Kinase 35 09/12/22 19:15: Ammonia 30.[address] 09/12/22 18:59 IMPRESSION: 1. Stable exam. Normal CT examination of the brain 2. No intracranial mass, hemorrhage or acute territorial infarct. 3. No radiographically significant sinus disease.. Electronically Signed: Shane Nguyen MD at 19:56 EDT , Chest X-Ray 09/12/22 19:34 IMPRESSION: 1. Shallow inspiration, mild basilar atelectasis. No focal infiltrate, congestive failure or effusion. 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 #1. Acute encephalopathy secondary to COLTON as noted #2 secondary to acute hydronephrosis and hydroureter to the level of the left UVJ secondary to an obstructing left UVJ calcification: We will admit to medical surgical floor, maintain on fall and aspiration precautions, discussed case with urology Dr. Rodriguez with planned AM intervention given obstructive findings, will continue hydration, monitor I's and O's, if any UOP will obtain UA/UCx, continue aggressive wound care has chronic wounds on the sacrum as well as in her groin, frequent positional changes, PT/OT/case management consultation for discharge planning. From review of prior records patient with history of MRSA, Pseudomonas and Enterococcus as far as urine cultures with most recent 08/15/2022 urine culture with Enterococcus with sensitivity to ampicillin, ciprofloxacin, gentamicin, Levaquin, linezolid, nitrofurantoin as well as vancomycin however CFU's were noted to be 11,000 25,000 likely this is chronic colonization. 06/10/2022 urine culture with greater than 100,000 colony-forming units Pseudomonas pansensitive to gentamicin, imipenem, Levaquin, Zosyn and tobramycin. If urinalysis concerning for infection given history's would likely initiate broad-spectrum with vancomycin and Zosyn with de-escalation once sensitivities/cultures result. #2. Acute kidney injury secondary to acute hydronephrosis and hydroureter to the level of the left UVJ secondary to an obstructing left UVJ calcification: CT abdomen pelvis with final read pending as noted, admission BUN/Cr 44/4.5, prior baseline creatinine noted to be 0.7-0.9 with most recent lab testing previous to this 08/16/2022 0.96. Will hydrate as noted, hold nephrotoxic medications and repeat chemistry in AM, planned 09/13/22 Urology intervention, would expect with hydration and stenting renal function improvement following. #3. Incomplete quadriplegia s/p cervical fracture: s/p cervical spinal fusion, patient with chronic indwelling gross catheter secondary to neurogenic bladder, chronic spasticity, Hx Autonomic dysreflexia. Given encephalopathy will hold oral regimen, will have low dose ativan to avoid withdrawal with baclofen, add back oral regimen as able. #4. Hypertension: Given COLTON will hold patient chronic home captopril regimen, as needed IV hydralazine in interim. #5. Chronic sacral wounds and inner groin chronic ulcers: Patient with history of MRSA, status post colostomy creation, will continue offloading, wound care evaluation and dressing changes. #6. Seizure disorder: Holding home Keppra regimen, transition to IV keppra while encephalopathic. LA level normal. #7. Former tobacco use: Encourage continued tobacco cessation. #8. Anxiety and depression: Holding home oral escitalopram, add back once oral intake safe. #9. Obesity: Weight loss and lifestyle changes encouraged. #10. GERD: We will hold patient home famotidine regimen and transition to PPI given COLTON. #11. DVT prophylaxis: SCDs, heparin. Charges/Coding Visit Charges Inpatient E&M: 30574 Init Hosp L3
[2022-09-12] MEDS: Heparin Injection (Vial) 5,000 UNIT/ML VIAL 5000 UNIT SC (23:35)
[2022-09-12] MEDS: 0.9% Saline Lock 10 ML Syringe IV (23:36)
[2022-09-12] MEDS: Nystatin Powder 15gm Bottle 1 APPLIC TOPICAL (23:46)
[2022-09-12] MEDS: Menthol/Lanolin/Calamine/Znox 113 GM Tube 1 APPLIC TOPICAL (23:46)
[2022-09-13] VITALS (15 sets, daily range): BP systolic 91–120; BP diastolic 57–92; PULSE 67–91; RESP 15–20; TEMP 36.3–37.1; O2SAT 93–98; BMI 38.4
[2022-09-13] MEDS: 0.9% Normal Saline 1,000 ML 150 ML IV ×3 (00:42→13:13)
--- NOTE | 2022-09-13 07:44 | PCM.CONS.GEN ---
Assessment & Plan Assessment/Plan (1) Ureteral calculus: (2) Single kidney: (3) COLTON (acute kidney injury): PLAN: Plan She will be going for cystoscopy and left ureteral stent insertion at 1130 this morning Continue care per medical team HPI Consult Data Date of Consult: 09/13/22 HPI Narrative HPI Narrative: KIERRA NARANJO, is a 21 F who presents [facility] Medical History (Updated 09/13/22 @ 07:[address] 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 Neck fracture New onset seizure Paraplegic spinal paralysis Single kidney Ureteral calculus Urinary tract infection Wounds, multiple Home Medications acetaminophen 325 mg tablet 650 mg PO Q4H PRN pain/fever 07/17/21 [History Last Taken Unknown] aioyd-n-zwqkmosjzixce 1 tab PO DAILY bladder spasms 07/17/21 [History Last Taken 09/12/22] ascorbic acid (vitamin C) 500 mg tablet 500 mg PO BID supplement 07/17/21 [History Last Taken 09/12/22] aspirin 81 mg tablet,delayed release 81 mg PO DAILY heart health 07/17/21 [History Last Taken 09/12/22] baclofen 20 mg tablet 40 mg PO TID muscle spasms 07/17/21 [History Last Taken 09/12/22] calcium carbonate 500 mg-vitamin D3 5 mcg (200 unit) tablet (Calcium 500 + D) 2 tab PO BID supplement 07/17/21 [History Last Taken 09/12/22] captopril 12.5 mg tablet 3.125 mg PO DAILY PRN PRN autonomic dysreflexia 07/17/21 [History Last Taken Unknown] cholecalciferol (vitamin D3) 25 mcg (1,000 unit) capsule (Vitamin D3) 25 mcg PO DAILY supplement 07/17/21 [History Last Taken 09/12/22] docusate sodium 100 mg capsule 100 mg PO TID PRN stool softener 07/17/21 [History Last Taken Unknown] enoxaparin 40 mg/0.4 mL subcutaneous syringe 40 mg subcut Q12H prevent blood clots 07/17/21 [History Last Taken 09/12/22] escitalopram oxalate 20 mg tablet 20 mg PO DAILY depression 07/17/21 [History Last Taken 09/12/22] nitroglycerin 2 % transdermal ointment 1 inch transdermal PRN PRN autonomic dysreflexia 07/17/21 [History Last Taken Unknown] tizanidine 4 mg capsule 4 mg PO BID paraplegia 07/17/21 [History Last Taken 09/12/22] levetiracetam 750 mg tablet 750 mg PO BID seizures 09/12/22 [History Last Taken 09/12/22] methenamine hippurate 1 gram tablet (Hiprex) 1 g PO Q12H UTI prevention 09/12/22 [History Last Taken 09/12/22] nystatin 100,000 unit/gram topical powder 1 applic topical BID skin irritation 09/12/22 [History Last Taken Unknown] Allergy/AdvReac Type Severity Reaction Status Date / Time No Known Allergies Allergy Verified 08/15/22 23:19 Family History other Surgical History H/O thumb surgery S/P cervical spinal fusion Social History household members: family Smoking Status: Former smoker alcohol intake: never substance use type: does not use ROS Review of Systems ROS Unobtainable: due to encephalopathy Physical Exam Narrative Patient is sleeping deeply and snoring, arousable but nonverbal this morning. Mom is not at bedside. Nursing staff is here for first evaluation of the morning. They reported she was somnolent overnight as well. Const General Appearance: lethargic HEENT normocephalic, external ears normal and external nose normal Head and Scalp: normal to inspection Eyes conjunctivae normal General Eye: normal appearance of both eyes Neck supple General: trachea midline Chest inspection of chest normal Resp normal respiratory effort, normal air movement and no retractions Cardio regular rate GI Palpation: soft Narrative: No urine in suprapubic tube Neuro No moves all extremities, No no focal motor deficits and No gait normal Lab / Micro Data Result Diagrams: 09/12/22 18:45 09/12/22 18:45 Labs: Laboratory Results - last 24 hr 09/12/22 18:45: WBC 11.6 H, RBC 4.65, Hgb 13.4, Hct 41.8, MCV 89.9, MCH 28.8, MCHC 32.1, RDW Std Deviation 44.5 H, RDW Coeff of Anurag 13.4, Plt Count 257, MPV 10.7, Immature Gran % (Auto) 0.300, Neut % (Auto) 76.0 H, Lymph % (Auto) 16.0 L, [place] % (Auto) 6.6, Eos % (Auto) 0.9, Baso % (Auto) 0.2, Absolute Neuts (auto) 8.8 H, Absolute Lymphs (auto) 1.85, Nucleated RBC % 0 09/12/22 18:45: PT 14.2, INR 1.1, APTT 31.3 09/12/22 18:45: Sodium 140, Potassium 4.8, Chloride 112 H, Carbon Dioxide 19.0 L, Anion Gap 9, BUN 44 H, Creatinine 4.54 H, Estim Creat Clear Calc 0.00, Est GFR (MDRD) Af Amer 16 L, Est GFR (MDRD) Non-Af 13 L, BUN/Creatinine Ratio 9.7 L, Glucose 115 H, Calcium 9.2, Total Bilirubin 0.30, AST 9 L, ALT 17, Alkaline Phosphatase 82, Troponin I High Sens 3, Total Protein 7.2, Albumin 3.0 L, Globulin 4.2, Albumin/Globulin Ratio 0.7 L 09/12/22 18:45: Lactic Acid 0.7 09/12/22 18:45: Total Creatine Kinase 35 09/12/22 19:15: Ammonia 30.0 09/13/22 06:55: WBC Cancelled, Corrected WBC Cancelled, RBC Cancelled, Hgb Cancelled, Hct Cancelled, MCV Cancelled, MCH Cancelled, MCHC Cancelled, RDW Std Deviation Cancelled, RDW Coeff of Anurag Cancelled, Plt Count Cancelled, MPV Cancelled, Immature Gran % (Auto) Cancelled, Neut % (Auto) Cancelled, Lymph % (Auto) Cancelled, [place] % (Auto) Cancelled, Eos % (Auto) Cancelled, Baso % (Auto) Cancelled, Absolute Neuts (auto) Cancelled, Absolute Lymphs (auto) Cancelled, Total Counted Cancelled, Neutrophils % (Manual) Cancelled, Band Neutrophils % Cancelled, Lymphocytes % (Manual) Cancelled, Monocytes % (Manual) Cancelled, Eosinophils % (Manual) Cancelled, Basophils % (Manual) Cancelled, Metamyelocytes % Cancelled, Myelocytes % Cancelled, Promyelocytes % Cancelled, Blast Cells % Cancelled, Plasma Cell % (Manual) Cancelled, Other Cells % Cancelled, Nucleated RBC % Cancelled, Nucleated RBCs/100 WBC Cancelled, Differential Comment Cancelled, Diff Path Review Cancelled, Hypersegmented Neuts Cancelled, Atypical Lymphocytes Cancelled, Reactive Lymphocytes Cancelled, Smudge Cells Cancelled, Toxic Granulation Cancelled, Toxic Vacuolation Cancelled, Dohle Bodies Cancelled, Adry Rods Cancelled, Platelet Estimate Cancelled, Plt Morphology Comment Cancelled, RBC Morphology Cancelled, Polychromasia Cancelled, Hypochromasia Cancelled, Poikilocytosis Cancelled, Basophilic Stippling Cancelled, Anisocytosis Cancelled, Microcytosis Cancelled, Macrocytosis Cancelled, Spherocytes Cancelled, Sickle Cells Cancelled, Target Cells Cancelled, Tear Drop Cells Cancelled, Ovalocytes Cancelled, Stomatocytes Cancelled, [place] Bodies Cancelled, Venancio Cells Cancelled, Bite Cells Cancelled, Crenated Cell Cancelled, Acanthocytes (Spur) Cancelled, Rouleaux Cancelled, Schistocytes Cancelled 09/13/22 06:55: Sodium Cancelled, Potassium Cancelled, Chloride Cancelled, Carbon Dioxide Cancelled, Anion Gap Cancelled, BUN Cancelled, Creatinine Cancelled, Estim Creat Clear Calc Cancelled, Est GFR (MDRD) Af Amer Cancelled, Est GFR (MDRD) Non-Af Cancelled, BUN/Creatinine Ratio Cancelled, Glucose Cancelled, Calcium Cancelled, Total Bilirubin Cancelled, AST Cancelled, ALT Cancelled, Alkaline Phosphatase Cancelled, Total Protein Cancelled, Albumin Cancelled, Globulin Cancelled, Albumin/Globulin Ratio Cancelled Radiology Impression Brain CT 09/12/22 18:59 IMPRESSION: 1. Stable exam. Normal CT examination of the brain 2. No intracranial mass, hemorrhage or acute territorial infarct. 3. No radiographically significant sinus disease.. Electronically Signed: Shane Nguyen MD at 19:56 EDT , Chest X-Ray 09/12/22 19:34 IMPRESSION: 1. Shallow inspiration, mild basilar atelectasis. No focal infiltrate, congestive failure or effusion. Electronically Signed: Shane Nguyen MD at 19:50 EDT , Abdomen/Pelvis CT 09/12/22 21:04 IMPRESSION: 1. Solitary LEFT kidney, coarse calcifications present within the minor calyces of the LEFT kidney, however hydronephrosis and hydroureter to the level of the LEFT UVJ is noted which is contributed by an obstructing LEFT UVJ calcification measuring 4.5 mm. 2. No masses bowel obstruction abscess free fluid or free air. LEFT lower quadrant ostomy noted. 3. No radiodense calcifications in the gallbladder. 4. Mild basilar atelectasis. Electronically Signed: Shane Nguyen MD at 22:49 EDT ,
[2022-09-13 08:24] LABS: Bacteria 0 SEEN /hpf (None Seen); Mucous, Urine 0 SEEN /hpf (<or=2+); Squamous Epithelial Cells - UA 0 SEEN /hpf (5-10)
[2022-09-13 08:28] LABS: Absolute Lymphocyte Count 1.37 X10^3/uL (0.83-4.51); Absolute Neutrophil Count 8.5 X10^3/uL (2.0-7.7); Basophil# 0.03 X10^3/uL; Basophil% 0.3 % (0-1); Eosinophil# 0.04 X10^3/uL; Eosinophils% 0.4 % (0-5); Hematocrit 35.8 % (37-47); Hemoglobin 11.4 g/dL (12.0-15.0); Lymphocyte # 1.37 X10^3/ul (0.83-4.51); Lymphocyte % 12.9 % (19-41); Mean Corp Hgb Conc 31.8 g/dL (32-36); Mean Corpuscular Hgb 28.9 pg (27.0-32.0); Mean Corpuscular Volume 90.9 fL (81-99); Mean Platelet Vol. 10.4 fl (6.2-12.0); Monocyte# 0.64 X10^3/uL; NRBC Flagged by Analyzer 0 % (0-5); Neutrophil # 8.51 X10^3/uL (2.7-7.7); Platelet Count 204 K/mm3 (150-450); RBC Distribution Width CV 13.3 % (11.6-14.6); Red Blood Count 3.94 M/mm3 (4.2-5.4); White Blood Count 10.6 K/mm3 (4.4-11.0)
[2022-09-13 08:32] LABS: Color, Urine Yellow (Yellow); Glucose, Dipstick Normal (Normal); Ketone-Dipstick 5 mg/dl (Negative); Leukocyte Esterase-Dipstick 100 /ul (Negative); Nitrite-Dipstick Positive (Negative); Occult Blood-Urine 250 /ul (Negative); Protein-Dipstick 500 mg/dl (Negative); Urine Bilirubin Dipstick Negative (Negative); Urine Clarity Cloudy (Clear); Urine Urobilinogen Normal (Normal)
[2022-09-13 08:39] LABS: Red Blood Cells-Urine > 100 SEEN /hpf (0-5)
[2022-09-13 08:40] LABS: White Blood Cells 10-25 SEEN /hpf (0-5)
[2022-09-13 08:59] LABS: ALB/GLOB Ratio 0.7 RATIO (0.9-2.4); AST(SGOT) 10 U/L (15-37); Alanine Aminotransfer ALT/SGPT 15 U/L (13-56); Albumin, Serum 2.4 g/dL (3.2-5.0); Alkaline Phosphatase 68 U/L (45-117); Anion Gap 7 (5-15); BUN 43 mg/dL (7-18); BUN/Creat Ratio 8.1 RATIO (10-20); Calcium,Total 8.3 mg/dL (8.5-10.1); Chloride 120 mmol/L (98-107); Creatinine, Serum 5.33 mg/dL (0.55-1.02); EST Glomerular Filtration Rate 11 mL/min (>60); Est Glom Filt Rate - Afr Amer 13 mL/min (>60); Estimated Creatinine Clearance 15.89 ml/min; Globulin 3.3 g/dL (2.2-4.2); Glucose 95 mg/dL (74-106); Potassium 4.5 mmol/L (3.5-5.1); Protein, Total 5.7 g/dL (6.4-8.2); Sodium Level 145 mmol/L (136-145)
[2022-09-13 09:05] LABS: Internal QC Validated? YES +Cl - CLEAR BKGD; Pregnancy, Serum, hCG Quali. NEGATIVE Negative
[2022-09-13 09:18] LABS: Creatinine, Urine (random) < 13.00 mg/dL (NO RANGE EST.); Urine Sodium 139 mmol/L (Not Establ.)
[2022-09-13 09:22] LABS: Amphetamine Urine VISTA NEGATIVE (<1000 ng/mL); Barbiturate Urine VISTA NEGATIVE (< 200 ng/mL); Benzodiazepine Urine VISTA NEGATIVE (< 200 ng/mL); Cocaine Urine VISTA NEGATIVE (< 300 ng/mL); Ecstacy Urine VISTA NEGATIVE (< 500 ng/mL); Methadone Urine VISTA NEGATIVE (< 300 ng/mL); PCP Urine VISTA NEGATIVE (< 25 ng/mL); THC Urine VISTA NEGATIVE (< 50 ng/mL); Vista UDS pH Range 7
[2022-09-13] MEDS: Lactated Ringers 1,000 ML 15 ML IV (10:01)
--- NOTE | 2022-09-13 10:17 | NURSING ---
This RN and primary RN Karla, both attempted to call multiple numbers for Amanda, Pt's mother and also Grandfather of pt and both do not answer phone. Unable to obtain consent prior to surgery at this time. Mother did call earlier this morning and said she would be in today. Mother states pt is normally very talkative.
--- NOTE | 2022-09-13 10:28 | NURSING ---
Sapna Bonds, Mother of pt here as pt was getting ready to leave floor to go to surgery. Dr. Ponce is talking with Mother about pt.
--- NOTE | 2022-09-13 10:47 | WOUNDNOTE ---
Was consulted on patient for redness and excoriation. pt is currently off the the unit for surgery.
[2022-09-13] MEDS: Cefazolin 2 GM in 0.9% Normal Saline 100 ML IV (11:37)
--- NOTE | 2022-09-13 12:05 | OP.PCM_ITS ---
Report of Operation Date of Procedure: 09/13/22 Pre-Operative Diagnosis: left ureteral calculus, solitary kidney with acute yaima al failure Post-Operative Diagnosis: same Surgery/Procedure Performed:: cystoscopy with left ureteral stent insertion Surgeon: Fernanda Rodriguez Type of Anesthesia: MAC Description of Procedure: Informed consent was obtained by mother. Patient non-verbal today. She was taken to the operating room and placed on the operating room table. Anesthesia monitored head, neck airway and IV access. Once anesthesia was administered, she was placed into dorsal lithotomy position and was prepped and draped in sterile fashion. Her perineum was very friable. The cystoscope was inserted through the urethra under direct visualization. The urinary bladder was edematous secondary to chronic indwelling urethral Ma catheter. The bladder neck appeared to be open and the bladder capacity very small. The left ureteral orifice was identified secondary to extreme edema of the mucosa surrounding the area consistent with a distal stone. A Glidewire, 0.035, was inserted through the ureteral orifice into the renal pelvis as seen on fluoroscopic visualization. A 6 [place] 26 cm JJ stent was passed over the wire with good positioning in the renal pelvis as well as the urinary bladder. A small amount of bloody urine was seen exiting the orifice. At this point the cystoscope was removed and a new Ma catheter was inserted. 10 cc was placed in the balloon. The patient was then awakened and taken to the recovery room in good condition. There were no complications during this procedure. Grafts/Implants Used: [id number] JJ stent Complications none Admit VTE Documentation VTE Present on Admission: Yes VTE Mechan Device Prophylaxis: SCD's VTE Pharm Prophylaxis ordered?: Yes
--- NOTE | 2022-09-13 13:55 | CASEMGMT ---
CONRAD TILLMAN Face to Face with patient for initial transition planning/care coordination assessment. CONRAD TILLMAN introduced self and role at [facility]. Patient lying in bed, sleeping, mother, Sapna, at bedside. Mother willing to participate in assessment and is able to answer all questions appropriately. Care providers, pharmacy, and demographics verified. Mother wishes to discharge home with resumption of HHC with [facility]. Mother states she has no further needs or concerns at this time. CM to follow for discharge planning needs that may arise. PCP: [facility] Specialists: Mother can not recall name or area of specialist Preferred Pharmacy: [facility] Insurance: Bringg Prescription Benefit: yes Living Will/HPOA: none LNOK: Mother Living Arrangements: Patient lives with mother in a 2 floor apartment, patient is on the main level of apartment. Mother assists with ADLs at home. Transportation: mother DME/HHC: Patient has power wheelchair, hospital bed, and karo at home, mother denies need for additional DME. Patient is currently active with [facility] for nursing and aides. Patient has been to [facility] previously. Disposition Plan: Patient to discharge home with resumption of HHC, family support, and follow-up plans in place. Adela VILLAR, RN, CM
--- NOTE | 2022-09-13 14:10 | WOUNDNOTE ---
Was asked to see patient for chronic wounds. patient has some excoriation noted under bilateral breasts, groin and buttocks. a couple small abrasions to buttocks are mildly bleeding. there is an old scarred area at the sacral region from a possible pilonidal cyst. plan to continue current treatment of calmoseptine and nystatin powder. will monitor.
[2022-09-13] MEDS: LORazepam 2 MG/ML Syringe 0.5 MG IV (14:20)
--- NOTE | 2022-09-13 14:20 | CASEMGMT ---
CONRAD TILLMAN NOTE: CONRAD TILLMAN informed by CONRAD Lopez CM, that pt lives w/parents, is active w/[facility], and they would like ISAAC to [facility]. Call placed to Alma @ [facility] and she was notified of pt's admission and would like to resume HHC. ISAAC order placed and faxed along w/H/P to [facility] via [facility]. Green sheet placed on chart for HHC, if pt discharges over the w/e. Amrit VILLAR RN, CM
[2022-09-13] MEDS: 0.9% Saline Lock 10 ML Syringe IV (14:21)
--- NOTE | 2022-09-13 14:38 | PCM.PN.HOSP ---
Subjective Subjective Patient was seen and examined today, she was not carrying on a conversation with this examiner and would not speak. I talked briefly with the patient's mother concerning the patient's mental status, I believe her behavior could be secondary to uremia, I am not exactly sure. Patient's brain CT showed no acute abnormality. Patient underwent a cystoscopy with left ureteral stent insertion today. Objective Data Objective Data Vital Signs: Vital Signs Temp Pulse Resp BP Pulse Ox O2 Del Method 97.3 F L 71 18 116/75 94 Room Air 09/13/22 13:17 09/13/22 13:17 09/13/22 13:17 09/13/22 13:17 09/13/22 13:17 09/13/22 13:17 Oxygen Delivery Method Room Air Weight: 108 kg Body Mass Index (BMI) 38.4 Intake & Output: Intake and Output for Last 24 Hours 09/11/22 09/12/22 09/13/22 23:59 23:59 23:59 Intake Total 1999 2813.0 / 2813.0 Output Total 800 / 800 Balance 1999 2013.0 / 2013.0 Lab / Micro Data Result Diagrams: 09/13/22 08:07 09/13/22 08:07 Labs: Laboratory Results - last 24 hr 09/12/22 18:45: WBC 11.6 H, RBC 4.65, Hgb 13.4, Hct 41.8, MCV 89.9, MCH 28.8, MCHC 32.1, RDW Std Deviation 44.5 H, RDW Coeff of Anurag 13.4, Plt Count 257, MPV 10.7, Immature Gran % (Auto) 0.300, Neut % (Auto) 76.0 H, Lymph % (Auto) 16.0 L, [place] % (Auto) 6.6, Eos % (Auto) 0.9, Baso % (Auto) 0.2, Absolute Neuts (auto) 8.8 H, Absolute Lymphs (auto) 1.85, Nucleated RBC % 0 09/12/22 18:45: PT 14.2, INR 1.1, APTT 31.3 09/12/22 18:45: Sodium 140, Potassium 4.8, Chloride 112 H, Carbon Dioxide 19.0 L, Anion Gap 9, BUN 44 H, Creatinine 4.54 H, Estim Creat Clear Calc 0.00, Est GFR (MDRD) Af Amer 16 L, Est GFR (MDRD) Non-Af 13 L, BUN/Creatinine Ratio 9.7 L, Glucose 115 H, Calcium 9.2, Total Bilirubin 0.30, AST 9 L, ALT 17, Alkaline Phosphatase 82, Troponin I High Sens 3, Total Protein 7.2, Albumin 3.0 L, Globulin 4.2, Albumin/Globulin Ratio 0.7 L 09/12/22 18:45: Lactic Acid 0.7 09/12/22 18:45: Total Creatine Kinase 35 09/12/22 19:15: Ammonia 30.0 09/13/22 06:55: WBC Cancelled, Corrected WBC Cancelled, RBC Cancelled, Hgb Cancelled, Hct Cancelled, MCV Cancelled, MCH Cancelled, MCHC Cancelled, RDW Std Deviation Cancelled, RDW Coeff of Anurag Cancelled, Plt Count Cancelled, MPV Cancelled, Immature Gran % (Auto) Cancelled, Neut % (Auto) Cancelled, Lymph % (Auto) Cancelled, [place] % (Auto) Cancelled, Eos % (Auto) Cancelled, Baso % (Auto) Cancelled, Absolute Neuts (auto) Cancelled, Absolute Lymphs (auto) Cancelled, Total Counted Cancelled, Neutrophils % (Manual) Cancelled, Band Neutrophils % Cancelled, Lymphocytes % (Manual) Cancelled, Monocytes % (Manual) Cancelled, Eosinophils % (Manual) Cancelled, Basophils % (Manual) Cancelled, Metamyelocytes % Cancelled, Myelocytes % Cancelled, Promyelocytes % Cancelled, Blast Cells % Cancelled, Plasma Cell % (Manual) Cancelled, Other Cells % Cancelled, Nucleated RBC % Cancelled, Nucleated RBCs/100 WBC Cancelled, Differential Comment Cancelled, Diff Path Review Cancelled, Hypersegmented Neuts Cancelled, Atypical Lymphocytes Cancelled, Reactive Lymphocytes Cancelled, Smudge Cells Cancelled, Toxic Granulation Cancelled, Toxic Vacuolation Cancelled, Dohle Bodies Cancelled, Adry Rods Cancelled, Platelet Estimate Cancelled, Plt Morphology Comment Cancelled, RBC Morphology Cancelled, Polychromasia Cancelled, Hypochromasia Cancelled, Poikilocytosis Cancelled, Basophilic Stippling Cancelled, Anisocytosis Cancelled, Microcytosis Cancelled, Macrocytosis Cancelled, Spherocytes Cancelled, Sickle Cells Cancelled, Target Cells Cancelled, Tear Drop Cells Cancelled, Ovalocytes Cancelled, Stomatocytes Cancelled, Green[place] Bodies Cancelled, [place] Cells Cancelled, Bite Cells Cancelled, Crenated Cell Cancelled, Acanthocytes (Spur) Cancelled, Rouleaux Cancelled, Schistocytes Cancelled 09/13/22 06:55: Sodium Cancelled, Potassium Cancelled, Chloride Cancelled, Carbon Dioxide Cancelled, Anion Gap Cancelled, BUN Cancelled, Creatinine Cancelled, Estim Creat Clear Calc Cancelled, Est GFR (MDRD) Af Amer Cancelled, Est GFR (MDRD) Non-Af Cancelled, BUN/Creatinine Ratio Cancelled, Glucose Cancelled, Calcium Cancelled, Total Bilirubin Cancelled, AST Cancelled, ALT Cancelled, Alkaline Phosphatase Cancelled, Total Protein Cancelled, Albumin Cancelled, Globulin Cancelled, Albumin/Globulin Ratio Cancelled 09/13/22 06:55: Serum , Qual Cancelled 09/13/22 08:07: Urine Opiates Screen NEGATIVE, Urine Methadone Screen NEGATIVE, Ur Barbiturates Screen NEGATIVE, Ur Phencyclidine Scrn NEGATIVE, Ur Amphetamines Screen NEGATIVE, MDMA (Ecstasy) Screen NEGATIVE, U Benzodiazepines Scrn NEGATIVE, Urine Cocaine Screen NEGATIVE, U Cannabinoids Screen NEGATIVE, Ur Drug Screen Comment 09/13/22 08:07: Urine Color Yellow, Urine Clarity Cloudy, Urine pH 8.0, Ur Specific Lena 1.010, Urine Protein 500 H, Urine Glucose (UA) Normal, Urine Ketones 5 H, Urine Occult Blood 250 H, Urine Nitrite Positive H, Urine Bilirubin Negative, Urine Urobilinogen Normal, Ur Leukocyte Esterase 100 H, Urine RBC > 100 SEEN, Urine WBC 10-25 SEEN, Ur Squamous Epith Cells 0 SEEN, Urine Bacteria 0 SEEN, Urine Mucus 0 SEEN 09/13/22 08:07: Ur Random Sodium 139, Urine Creatinine < 13.00 09/13/22 08:07: WBC 10.6, RBC 3.94 L, Hgb 11.4 L, Hct 35.8 L, MCV 90.9, MCH 28.9, MCHC 31.8 L, RDW Std Deviation 45.0 H, RDW Coeff of Anurag 13.3, Plt Count 204, MPV 10.4, Immature Gran % (Auto) 0.400, Neut % (Auto) 80.0 H, Lymph % (Auto) 12.9 L, [place] % (Auto) 6.0, Eos % (Auto) 0.4, Baso % (Auto) 0.3, Absolute Neuts (auto) 8.5 H, Absolute Lymphs (auto) 1.37, Nucleated RBC % 0 09/13/22 08:07: Sodium 145, Potassium 4.5, Chloride 120 H, Carbon Dioxide 18.0 L, Anion Gap 7, BUN 43 H, Creatinine 5.33 H, Estim Creat Clear Calc 15.89, Est GFR (MDRD) Af Amer 13 L, Est GFR (MDRD) Non-Af 11 L, BUN/Creatinine Ratio 8.1 L, Glucose 95, Calcium 8.3 L, Total Bilirubin 0.30, AST 10 L, ALT 15, Alkaline Phosphatase 68, Total Protein 5.7 L, Albumin 2.4 L, Globulin 3.3, Albumin/Globulin Ratio 0.7 L 09/13/22 08:07: Serum , Qual NEGATIVE Radiography Diagnostic Testing: Radiology Impression Brain CT 09/12/22 18:59 IMPRESSION: 1. Stable exam. Normal CT examination of the brain 2. No intracranial mass, hemorrhage or acute territorial infarct. 3. No radiographically significant sinus disease.. Electronically Signed: Shane Nguyen MD at 19:56 EDT , Chest X-Ray 09/12/22 19:34 IMPRESSION: 1. Shallow inspiration, mild basilar atelectasis. No focal infiltrate, congestive failure or effusion. Electronically Signed: Shane Nguyen MD at 19:50 EDT , Abdomen/Pelvis CT 09/12/22 21:04 IMPRESSION: 1. Solitary LEFT kidney, coarse calcifications present within the minor calyces of the LEFT kidney, however hydronephrosis and hydroureter to the level of the LEFT UVJ is noted which is contributed by an obstructing LEFT UVJ calcification measuring 4.5 mm. 2. No masses bowel obstruction abscess free fluid or free air. LEFT lower quadrant ostomy noted. 3. No radiodense calcifications in the gallbladder. 4. Mild basilar atelectasis. Electronically Signed: Shane Nguyen MD at 22:49 EDT , Physical Exam Const Constitutional Narrative: Patient is somnolent, she opens her eyes to conversation but does not carry on a conversation with this examiner. She does not speak. General Appearance: cooperative, well kempt and well developed Orientation / Consciousness: awake, oriented to person, oriented to place and oriented to time HEENT normocephalic, head/scalp atraumatic and moist oral mucous membranes Eyes PERRL, EOMs intact bilaterally and conjunctivae normal Neck supple, no JVD, thyroid normal and no carotid bruits General: trachea midline Resp normal respiratory effort, no retractions, no use of accessory muscles and clear to auscultation bilaterally Auscultation: Negative for rales, rhonchi or wheezes Cardio regular rate, regular rhythm, S1 normal heart sound, S2 normal heart sound, no murmurs, no rub and no gallops GI soft to palpation GI Narrative: A colostomy is present Extremity no clubbing, cyanosis or edema Skin no rashes or lesions noted General Skin Exam: no breakdown Neuro CN's II-XII intact bilaterally Neuro Narrative: Patient is nonverbal, she appears lethargic and somnolent, she does respond to painful stimuli Psych Psych Narrative: Patient is somnolent, she does not carry on a conversation or speak Assessment & Plan Assessment/Plan (1) COLTON (acute kidney injury): PLAN: Plan 1. Acute kidney injury-continue IV fluid administration, again patient went today for stent placement in the left ureter #2 metabolic cephalopathy-exact etiology unclear at this point, I talked to the patient's mother by phone, she states that the patient has only had 1 seizure episode in her lifetime, I do not think the patient's mental status is secondary to a postictal state at this time, patient's creatinine is elevated, I suppose it is possible she could be uremic. Patient will be given IV fluids, I stopped her IV Ativan which she had been placed on when she was admitted to the hospital here and I made the mother aware that I was going to hold any medications that would cause sedation. #3 ureteral stone-patient will most probably need a lithotripsy if she does not pass the stone spontaneously, urology is participating in her care #4 seizure disorder-patient is on IV Keppra #5 chronic paraplegia-complicates care, management, recovery, and prognosis #6 urine tract infection-secondary to chronic Ma usage with an overlay of left ureteral stone-I have elected to change the patient's antibiotic coverage to Zosyn due to her past history of Enterococcus and Pseudomonas. Charges/Coding Visit Charges Inpatient E&M: 55610 Subs Hosp L2
[2022-09-13] MEDS: Heparin Injection (Vial) 5,000 UNIT/ML VIAL 5000 UNIT SC (22:06)
[2022-09-14] MEDS: 0.9% Normal Saline 1,000 ML 100 ML IV ×3 (02:35→23:38)
[2022-09-14 03:40] VITALS: BP 114/66; PULSE 75; RESP 16; TEMP 37.2; O2SAT 95
[2022-09-14 08:24] VITALS: BP 119/75; PULSE 77; RESP 18; TEMP 37.1; O2SAT 97
[2022-09-14 09:32] LABS: Absolute Lymphocyte Count 1.52 X10^3/uL (0.83-4.51); Absolute Neutrophil Count 4.6 X10^3/uL (2.0-7.7); Basophil# 0.02 X10^3/uL; Basophil% 0.3 % (0-1); Eosinophil# 0.11 X10^3/uL; Eosinophils% 1.6 % (0-5); Hematocrit 35.1 % (37-47); Hemoglobin 11.7 g/dL (12.0-15.0); Lymphocyte # 1.52 X10^3/ul (0.83-4.51); Lymphocyte % 22.7 % (19-41); Mean Corp Hgb Conc 33.3 g/dL (32-36); Mean Corpuscular Hgb 29.3 pg (27.0-32.0); Mean Corpuscular Volume 87.8 fL (81-99); Monocyte# 0.38 X10^3/uL; Monocyte% 5.7 % (0-10); NRBC Flagged by Analyzer 0 % (0-5); Neutrophil # 4.64 X10^3/uL (2.7-7.7); Neutrophil % 69.4 % (47-70); POSITIVE COUNT YES; Platelet Count 234 K/mm3 (150-450); RBC Distribution Width CV 13.7 % (11.6-14.6); White Blood Count 6.7 K/mm3 (4.4-11.0)
[2022-09-14 09:46] LABS: Anion Gap 9 (5-15); BUN 26 mg/dL (7-18); BUN/Creat Ratio 11.6 RATIO (10-20); Calcium,Total 8.8 mg/dL (8.5-10.1); Chloride 125 mmol/L (98-107); Creatinine, Serum 2.25 mg/dL (0.55-1.02); EST Glomerular Filtration Rate 30 mL/min (>60); Est Glom Filt Rate - Afr Amer 36 mL/min (>60); Estimated Creatinine Clearance 37.65 ml/min; Glucose 83 mg/dL (74-106); Potassium 4.4 mmol/L (3.5-5.1); Sodium Level 151 mmol/L (136-145)
[2022-09-14] MEDS: Menthol/Lanolin/Calamine/Znox 113 GM Tube 1 APPLIC TOPICAL ×2 (09:54→21:38)
[2022-09-14] MEDS: Nystatin Powder 15gm Bottle 1 APPLIC TOPICAL ×2 (09:55→21:40)
[2022-09-14] MEDS: Heparin Injection (Vial) 5,000 UNIT/ML VIAL 5000 UNIT SC ×2 (09:56→21:39)
--- NOTE | 2022-09-14 10:35 | PCM.PN.HOSP ---
Subjective Subjective Patient was seen and examined today, she appears more alert and nods her head to questions, she does not speak to this examiner however. Nursing called me later on to state that she asked for oral intake, we will start her out with full liquids and then advance her to regular diet as tolerated. Patient's white count remains normal today, her creatinine is improved. Objective Data Objective Data Vital Signs: Vital Signs Temp Pulse Resp BP Pulse Ox O2 Del Method 98.8 F 77 18 119/75 97 Room Air 09/14/22 08:24 09/14/22 08:24 09/14/22 08:24 09/14/22 08:24 09/14/22 08:24 09/14/22 10:20 Oxygen Delivery Method Room Air Weight: 111.754 kg Body Mass Index (BMI) 38.4 Intake & Output: Intake and Output for Last 24 Hours 09/12/22 09/13/22 09/14/22 23:59 23:59 23:59 Intake Total 1999 3970.5 / 3970.5 800 / 800 Output Total 2800 / 2800 800 / 800 Balance 1999 1170.5 / 1170.5 0 / 0 Lab / Micro Data Result Diagrams: 09/14/22 09:20 09/14/22 09:20 Labs: Laboratory Results - last 24 hr 09/14/22 09:20: WBC 6.7, RBC 4.00 L, Hgb 11.7 L, Hct 35.1 L, MCV 87.8, MCH 29.3, MCHC 33.3, RDW Std Deviation 44.0 H, RDW Coeff of Anurag 13.7, Plt Count 234, MPV 11.0, Immature Gran % (Auto) 0.300, Neut % (Auto) 69.4, Lymph % (Auto) 22.7, [place] % (Auto) 5.7, Eos % (Auto) 1.6, Baso % (Auto) 0.3, Absolute Neuts (auto) 4.6, Absolute Lymphs (auto) 1.52, Nucleated RBC % 0 09/14/22 09:20: Sodium 151 H, Potassium 4.4, Chloride 125 H, Carbon Dioxide 17.0 L, Anion Gap 9, BUN 26 H, Creatinine 2.25 H, Estim Creat Clear Calc 37.65, Est GFR (MDRD) Af Amer 36 L, Est GFR (MDRD) Non-Af 30 L, BUN/Creatinine Ratio 11.6, Glucose 83, Calcium 8.8 Micro: Microbiology 09/13/22 08:07 Urine, Catheterized Urine Culture - Preliminary Mixed Gram Positive Organisms Physical Exam Const alert and no apparent distress Constitutional Narrative: Patient is awake, she does not appear to be in any distress, she is nonverbal but does nod her head to questions. General Appearance: well developed Orientation / Consciousness: awake HEENT normocephalic, head/scalp atraumatic and moist oral mucous membranes Eyes PERRL, EOMs intact bilaterally and conjunctivae normal Neck supple, no JVD, thyroid normal and no carotid bruits General: trachea midline Resp normal respiratory effort, no retractions, no use of accessory muscles and clear to auscultation bilaterally Auscultation: Negative for rales, rhonchi or wheezes Cardio regular rate, regular rhythm, S1 normal heart sound, S2 normal heart sound, no murmurs, no rub and no gallops GI normal to inspection, nondistended, normoactive bowel sounds, soft to palpation, non-tender and non-distended Extremity no clubbing, cyanosis or edema Skin no rashes or lesions noted General Skin Exam: no breakdown Neuro CN's II-XII intact bilaterally, no focal motor deficits and no sensory deficits noted Neuro Narrative: Patient is alert, she does not appear to be in any distress, she is nonverbal but she does nod her head yes and no to questions. Sensorium / Orientation: awake and alert Psych Psych Narrative: Patient is nonverbal, she does nod her head to yes or no. Assessment & Plan Assessment/Plan (1) Ureteral calculus: (2) COLTON (acute kidney injury): PLAN: Plan 1. Acute kidney injury-continue IV fluid administration, labs will be rechecked tomorrow #2 metabolic cephalopathy-exact etiology unclear at this point, this appears improved today, patient asked nursing for a diet, she did not carry on conversation with me however. She nods her head yes or no to questions however #3 ureteral stone-patient will most probably need a lithotripsy if she does not pass the stone spontaneously, urology is participating in her care #4 seizure disorder-patient is on IV Keppra #5 chronic paraplegia-complicates care, management, recovery, and prognosis #6 urine tract infection-secondary to chronic Ma usage with an overlay of left ureteral stone-I have elected to change the patient's antibiotic coverage to Zosyn due to her past history of Enterococcus and Pseudomonas. Urine culture grew out mixed organisms, I will continue IV antibiotics until tomorrow and then reassess her for oral antibiotic usage Charges/Coding Visit Charges Inpatient E&M: 42913 Subs Hosp L2
[2022-09-14 14:24] VITALS: BP 111/67; PULSE 79; RESP 18; TEMP 36.7; O2SAT 96
--- NOTE | 2022-09-14 18:15 | NURSING ---
Pt done eating but continues to sit in chair. Call light in reach.
[2022-09-14 20:45] VITALS: BP 114/59; PULSE 74; RESP 16; TEMP 36.5; O2SAT 98
[2022-09-14] MEDS: MELATONIN 3 MG TABLET PO (23:41)
[2022-09-15 02:45] VITALS: BP 134/74; PULSE 77; RESP 14; TEMP 36.8; O2SAT 96
[2022-09-15] MEDS: Acetaminophen 325 MG Tablet 650 MG PO (05:57)
[2022-09-15 07:00] LABS: Anion Gap 7 (5-15); BUN 16 mg/dL (7-18); BUN/Creat Ratio 12.4 RATIO (10-20); Calcium,Total 8.5 mg/dL (8.5-10.1); Chloride 118 mmol/L (98-107); Creatinine, Serum 1.29 mg/dL (0.55-1.02); EST Glomerular Filtration Rate 56 mL/min (>60); Est Glom Filt Rate - Afr Amer 68 mL/min (>60); Estimated Creatinine Clearance 65.67 ml/min; Glucose 90 mg/dL (74-106); Potassium 3.4 mmol/L (3.5-5.1); Sodium Level 145 mmol/L (136-145)
[2022-09-15 08:08] VITALS: BP 118/73; PULSE 69; RESP 18; TEMP 36.6; O2SAT 95
[2022-09-15] MEDS: Heparin Injection (Vial) 5,000 UNIT/ML VIAL 5000 UNIT SC (09:05)
[2022-09-15] MEDS: Nystatin Powder 15gm Bottle 1 APPLIC TOPICAL (09:06)
[2022-09-15] MEDS: Menthol/Lanolin/Calamine/Znox 113 GM Tube 1 APPLIC TOPICAL (09:06)
[2022-09-15] MEDS: 0.9% Normal Saline 1,000 ML 100 ML IV (09:37)
--- NOTE | 2022-09-15 11:23 | DCINST_ITS ---
Discharge Instructions Diet Discharge Diet: No restrictions Activity Discharge Activity: Return to Normal Activity Follow Up Care Test Results: Test results from this visit will be discussed in further detail at your follow- up appointment, if applicable. Discharge Plan Admission Admit Date/Time: 09/12/22 21:55 Primary Reason for Your Visit: left hydronephrosis, left ureteral stone Attending Provider: Luis A Ponce Primary Care Provider: Edgard Amato Consulting Providers: Michelle Greenfield ; Fernanda Rodriguez Discharge Orders/Prescriptions Prescriptions: Continued acetaminophen 325 mg Tablet 650 mg PO Q4H PRN (Reason: pain/fever) aspirin 81 mg Tablet,Delayed Release (Dr/Ec) 81 mg PO DAILY baclofen 20 mg Tablet 40 mg PO TID ascorbic acid (vitamin C) 500 mg Tablet 500 mg PO BID nitroglycerin 2 % Ointment 1 inch TRANSDERMAL PRN PRN (Reason: autonomic dysreflexia) cholecalciferol (vitamin D3) [Vitamin D3] 25 mcg (1,000 unit) Capsule 25 mcg PO DAILY tizanidine 4 mg Capsule 4 mg PO BID [id number] Tablet 1 tab PO DAILY captopril 12.5 mg Tablet 3.125 mg PO DAILY PRN PRN (Reason: autonomic dysreflexia) docusate sodium 100 mg Capsule 100 mg PO TID PRN (Reason: stool softener) enoxaparin 40 mg/0.4 mL Syringe 40 mg SUBCUT Q12H escitalopram oxalate 20 mg Tablet 20 mg PO DAILY calcium carbonate-vitamin D3 [Calcium 500 + D] 500 mg(1,250mg) -200 unit Tablet 2 tab PO BID methenamine hippurate [Hiprex] 1 gram tablet 1 g PO Q12H Rx Instructions: can be continued indefinitely. For UTI prevention. levetiracetam 750 mg tablet 750 mg PO BID nystatin 100,000 unit/gram powder 1 applic topical BID Referrals / Follow Up: Edgard Amato MD [Primary Care Provider] - See Referral Note (at scheduled appointment time) Fernanda Rodriguez MD [Med Staff - Active Staff] - See Referral Note (in one to two weeks-call office to make appointment) Disposition Disposition (needs filled in before D/C Order can be placed): Home, Self Care
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
== END 2022-09-15 12:23 | disposition home health service (06) | DRG 469 ==
LOC: ED 18:53 → MS3 22:58
PROVIDERS: Anesthesiology; Urology; Admitting Provider Family Medicine; Emergency Provider Student in an Organized Health Care Education/Training Program; PCP Pediatrics; Visit Provider Internal Medicine
PROC: 0T778DZ Dilation of Left Ureter with Intraluminal Device, Via Natural or Artificial Opening Endoscopic (ICD-10-PCS; principal; 2022-09-13 11:15)
DX: N17.9 Acute kidney failure, unspecified (principal); G82.50 Quadriplegia, unspecified; G93.41 Metabolic encephalopathy; S14.109S Unspecified injury at unspecified level of cervical spinal cord, sequela; Q60.0 Renal agenesis, unilateral; G40.909 Epilepsy, unspecified, not intractable, without status epilepticus; Z93.3 Colostomy status; S12.9XXS Fracture of neck, unspecified, sequela; I10 Essential (primary) hypertension; K21.9 Gastro-esophageal reflux disease without esophagitis; F41.9 Anxiety disorder, unspecified; V99.XXXS Unspecified transport accident, sequela; N32.89 Other specified disorders of bladder; N31.9 Neuromuscular dysfunction of bladder, unspecified; F32.A Depression, unspecified; E66.9 Obesity, unspecified; Z79.82 Long term (current) use of aspirin; Z79.01 Long term (current) use of anticoagulants; Z79.899 Other long term (current) drug therapy; Z87.891 Personal history of nicotine dependence; Z87.440 Personal history of urinary (tract) infections; Z86.14 Personal history of Methicillin resistant Staphylococcus aureus infection
CPT/HCPCS: 36415; 70450; 71045; 74176; 76000; 80048; 80053; 80307; 81001; 82140; 82550; 82570; 83605; 84300; 84484; 84703; 85025; 85610; 85730; 87040; 87086; 87088; 93005; 97110; 97163; 97166; 97530; 99251; 99285; 99406; J7030; J7120; A4216; C2617; G0463; J2405

== ENCOUNTER 2022-09-15 20:31 | Emergency (ER) | payer MEDICAID, SELFPAY ==
[2022-09-15 20:32] VITALS: BP 147/91; PULSE 60; RESP 15; TEMP 36.2; O2SAT 98; BMI 41.4
[2022-09-15 20:38] VITALS: BP 147/91; PULSE 63; RESP 15; O2SAT 98
--- NOTE | 2022-09-15 20:57 | EDS_ITS ---
HPI History of Present Illness Chief Complaint: General Illness Informant: patient Onset/Context/Timing Onset: Today Context: Sudden Onset Timing: Continuous Quality: Cramping Location: Right upper and lower abdomen Worsened by: Nothing Relieved by: Nothing Narrative Narrative: Patient presents with abdominal pain, nausea, and vomiting that began today. Patient was discharged earlier today from the hospital. Patient states that tonight she started having some abdominal pain on her right side. Patient states she has had some nausea and vomiting with this. Patient describes her pain as cramping. Patient states the pain is over the right upper and lower abdomen. Patient denies any back pain. Patient denies any hematemesis or coffee-ground emesis. Patient denies any melena or hematochezia. 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 Neck fracture New onset seizure Paraplegic spinal paralysis Single kidney Ureteral calculus Urinary tract infection Wounds, multiple Home Medications acetaminophen 325 mg tablet 650 mg PO Q4H PRN pain/fever 07/17/21 [History Last Taken Unknown] [id number]-[id number] 1 tab PO DAILY bladder spasms 07/17/21 [History Last Taken 09/12/22] ascorbic acid (vitamin C) 500 mg tablet 500 mg PO BID supplement 07/17/21 [History Last Taken 09/12/22] aspirin 81 mg tablet,delayed release 81 mg PO DAILY heart health 07/17/21 [History Last Taken 09/12/22] baclofen 20 mg tablet 40 mg PO TID muscle spasms 07/17/21 [History Last Taken 09/12/22] calcium carbonate 500 mg-vitamin D3 5 mcg (200 unit) tablet (Calcium 500 + D) 2 tab PO BID supplement 07/17/21 [History Last Taken 09/12/22] captopril 12.5 mg tablet 3.125 mg PO DAILY PRN PRN autonomic dysreflexia 07/17/21 [History Last Taken Unknown] cholecalciferol (vitamin D3) 25 mcg (1,000 unit) capsule (Vitamin D3) 25 mcg PO DAILY supplement 07/17/21 [History Last Taken 09/12/22] docusate sodium 100 mg capsule 100 mg PO TID PRN stool softener 07/17/21 [History Last Taken Unknown] enoxaparin 40 mg/0.4 mL subcutaneous syringe 40 mg subcut Q12H prevent blood cl ots 07/17/21 [History Last Taken 09/12/22] escitalopram oxalate 20 mg tablet 20 mg PO DAILY depression 07/17/21 [History Last Taken 09/12/22] nitroglycerin 2 % transdermal ointment 1 inch transdermal PRN PRN autonomic dysreflexia 07/17/21 [History Last Taken Unknown] tizanidine 4 mg capsule 4 mg PO BID paraplegia 07/17/21 [History Last Taken 09/12/22] levetiracetam 750 mg tablet 750 mg PO BID seizures 09/12/22 [History Last Taken 09/12/22] methenamine hippurate 1 gram tablet (Hiprex) 1 g PO Q12H UTI prevention 09/12/22 [History Last Taken 09/12/22] nystatin 100,000 unit/gram topical powder 1 applic topical BID skin irritation 09/12/22 [History Last Taken Unknown] Allergy/AdvReac Type Severity Reaction Status Date / Time No Known Allergies Allergy Verified 08/15/22 23:19 Family History other Surgical History H/O thumb surgery S/P cervical spinal fusion Social History household members: family Smoking Status: Former smoker alcohol intake: never substance use type: does not use ROS ROS ED Constitutional Constitutional ED: Denies chills or fever(s) Eyes Eyes: Denies blurry vision or change in vision ENT ENT ED: Denies rhinorrhea or sore throat Cardiovascular Cardiovascular: Denies chest pain or palpitations Respiratory/Chest Respiratory/Chest: Denies cough or dyspnea Gastrointestinal Gastrointestinal: Reports abdominal pain, nausea and vomiting Genitourinary Genitourinary ED: Denies dysuria or hematuria Musculoskeletal Musculoskeletal: Reports neck pain; Denies back pain Integumentary Denies abscess or rash Neurologic Neurologic: Denies headache(s) or weakness Allergic/Immunologic Allergic/Immunologic ED: Denies mouth swelling or urticaria EXAM Physical Exam Const Vital Signs: 09/15/22 20:32 09/15/22 20:38 09/15/22 20:38 Temperature 97.1 F L Temperature Source Temporal Pulse Rate 60 63 Respiratory Rate 15 15 Respiratory Effort Normal Respiratory Pattern Normal Blood Pressure 147/91 H 147/91 H Blood Pressure Mean 109 109 Pulse Ox 98 98 Oxygen Delivery Method Room Air Room Air Positive well nourished and well developed General Appearance ED: well developed HEENT Reports moist mucous membranes Neck supple and no JVD Resp normal respiratory effort and clear to auscultation bilaterally Cardio regular rate, regular rhythm and no murmurs GI normal to inspection, nondistended, normoactive bowel sounds Palpation: soft and tender RLQ and RUQ; Negative for guarding or rebound tenderness present Extremity normal to inspection General Extremety ED: Negative for edema or tenderness General Extremity: Negative for edema Neuro oriented x3, CN's II-XII intact bilaterally and no sensory deficits noted Sensorium / Orientation: alert Motor Exam: strength 5/5 throughout Psych mental status grossly normal Skin no rashes or lesions noted MDM MDM MDM Narrative Medical decision making narrative: Patient was given IV fluids, morphine, and Zofran. CBC was within normal limits. Comprehensive metabolic profile was within normal limits. Lipase was normal. Urinalysis shows greater than 100 red blood cells and occult blood of 250. There is a leukocyte esterases of 100 but 0-5 white blood cells and rare bacteria. CT scan of the abdomen pelvis was obtained. There is removal of the previous stone and placement of a stent compared to previous CT scan. There is no acute abnormality. This was interpreted by the radiologist and reviewed by myself. Patient states she is feeling better on reevaluation. Patient was inst ructed to continue small amounts of fluids more frequently. Patient was instructed to follow-up with her primary care physician in 3 to 5 days. Patient understood and was agreeable with the plan. All questions were answered. Lab Data Attestation: I reviewed the patient's lab results. Labs: Laboratory Results - last 24 hr 09/15/22 09/15/22 09/15/22 21:30 21:30 21:40 WBC 5.6 RBC 3.92 L Hgb 11.5 L Hct 34.5 L MCV 88.0 MCH 29.3 MCHC 33.3 RDW Std Deviation 43.8 RDW Coeff of Anurag 13.6 Plt Count 258 MPV 10.6 Immature Gran % (Auto) 0.200 Neut % (Auto) 52.5 Lymph % (Auto) 36.0 [place] % (Auto) 6.3 Eos % (Auto) 4.1 Baso % (Auto) 0.9 Absolute Neuts (auto) 2.9 Absolute Lymphs (auto) 2.01 Nucleated RBC % 0 Sodium 145 Potassium 3.7 Chloride 116 H Carbon Dioxide 23.0 Anion Gap 6 BUN 12 Creatinine 1.01 Estim Creat Clear Calc 80.62 Est GFR (MDRD) Af Amer 90 Est GFR (MDRD) Non-Af 75 BUN/Creatinine Ratio 11.9 Glucose 92 Calcium 8.9 Total Bilirubin 0.30 AST 12 L ALT 14 Alkaline Phosphatase 60 Total Protein 6.4 Albumin 2.7 L Globulin 3.7 Albumin/Globulin Ratio 0.7 L Lipase 91 Urine Color SEE COMMENT BELOW Urine Clarity Cloudy Urine pH 6.5 Ur Specific [place] 1.010 Urine Protein 30 H Urine Glucose (UA) Normal Urine Ketones Negative Urine Occult Blood 250 H Urine Nitrite Negative Urine Bilirubin Negative Urine Urobilinogen Normal Ur Leukocyte Esterase 100 H Urine RBC > 100 SEEN Urine WBC 0-5 SEEN Ur Squamous Epith Cells 0-5 SEEN Urine Bacteria RARE Urine Mucus 0 SEEN Radiography Diagnostic Testing: Clinical Impression(s) from Imaging Studies Abdomen/Pelvis CT 09/15/22 21:01 IMPRESSION: Interval removal of left ureterovesical junction stone with placement of ureteral stent without hydronephrosis or ureteral dilatation. No other acute abnormality. Electronically Signed: Shane Scott MD at 22:40 EDT , Discharge Plan Triage Chief Complaint: General Illness ED Provider: Lele Aquino Dx/Rx/DC Orders Clinical Impression: Abdominal pain Instructions: ED Abdominal Pain Unkn Cause Fem Prescriptions: No Action acetaminophen 325 mg Tablet 650 mg PO Q4H PRN (Reason: pain/fever) aspirin 81 mg Tablet,Delayed Release (Dr/Ec) 81 mg PO DAILY baclofen 20 mg Tablet 40 mg PO TID ascorbic acid (vitamin C) 500 mg Tablet 500 mg PO BID nitroglycerin 2 % Ointment 1 inch TRANSDERMAL PRN PRN (Reason: autonomic dysreflexia) cholecalciferol (vitamin D3) [Vitamin D3] 25 mcg (1,000 unit) Capsule 25 mcg PO DAILY tizanidine 4 mg Capsule 4 mg PO BID [id number] Tablet 1 tab PO DAILY captopril 12.5 mg Tablet 3.125 mg PO DAILY PRN PRN (Reason: autonomic dysreflexia) docusate sodium 100 mg Capsule 100 mg PO TID PRN (Reason: stool softener) enoxaparin 40 mg/0.4 mL Syringe 40 mg SUBCUT Q12H escitalopram oxalate 20 mg Tablet 20 mg PO DAILY calcium carbonate-vitamin D3 [Calcium 500 + D] 500 mg(1,250mg) -200 unit Tablet 2 tab PO BID methenamine hippurate [Hiprex] 1 gram tablet 1 g PO Q12H Rx Instructions: can be continued indefinitely. For UTI prevention. levetiracetam 750 mg tablet 750 mg PO BID nystatin 100,000 unit/gram powder 1 applic topical BID Primary Care Provider: Edgard Amato Referrals: Edgard Amato MD [Primary Care Provider] - 3-5 Days Disposition Disposition: Home, Self Care
--- NOTE | 2022-09-15 21:01 | CT_ITS ---
STUDY: CT ABDOMEN AND PELVIS WITHOUT CONTRAST REASON FOR EXAM: Female, 21 years old. Abdominal pain RADIATION DOSAGE (If Supplied By Facility): CTDIvol = ( 20.68 ) mGy, DLP = ( 1131.76 ) mGycm TECHNIQUE: Transaxial images were obtained from the dome of the diaphragm to the symphysis pubis without oral contrast, and without intravenous contrast. Sagittal and coronal images were reconstructed. Individualized dose optimization techniques were used for this CT. COMPARISON: 09/12/2022 FINDINGS: Some bibasilar discoid atelectasis. The visualized portions of the heart are within normal limits. Normal liver. Normal gallbladder and extrahepatic biliary system. Normal spleen. Normal pancreas. Normal bilateral adrenal glands. No right kidney consistent with agenesis or prior nephrectomy. Multiple nonobstructing stones the left kidney. Left ureteral stent without hydronephrosis or ureteral dilatation. No ureteral stone. Normal visualized stomach. Normal small intestine. Status post resection of the sigmoid colon with the left lower quadrant colostomy. The appendix is visualized and appears normal. Normal abdominal aorta. Normal inferior vena cava. Normal retroperitoneum. Ma catheter within the collapsed bladder. 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 Normal abdominal wall. Mild levoscoliosis of the lumbar spine. CT/Abdomen/Pelvis without Cont IMPRESSION: Interval removal of left ureterovesical junction stone with placement of ureteral stent without hydronephrosis or ureteral dilatation. No other acute abnormality. Electronically Signed: Shane Scott MD at 22:40 EDT ,
[2022-09-15] MEDS: 0.9% Normal Saline 1,000 ML 1000 ML IV (21:30)
[2022-09-15] MEDS: Morphine 2 MG/ML Syringe IV (21:30)
[2022-09-15] MEDS: Ondansetron 4 MG/2 ML Vial IV (21:30)
[2022-09-15 21:46] LABS: Mucous, Urine 0 SEEN /hpf (<or=2+)
[2022-09-15 22:15] LABS: Absolute Lymphocyte Count 2.01 X10^3/uL (0.83-4.51); Absolute Neutrophil Count 2.9 X10^3/uL (2.0-7.7); Basophil# 0.05 X10^3/uL; Basophil% 0.9 % (0-1); Eosinophil# 0.23 X10^3/uL; Eosinophils% 4.1 % (0-5); Hematocrit 34.5 % (37-47); Hemoglobin 11.5 g/dL (12.0-15.0); Lymphocyte # 2.01 X10^3/ul (0.83-4.51); Mean Corp Hgb Conc 33.3 g/dL (32-36); Mean Corpuscular Hgb 29.3 pg (27.0-32.0); Mean Platelet Vol. 10.6 fl (6.2-12.0); Monocyte# 0.35 X10^3/uL; Monocyte% 6.3 % (0-10); NRBC Flagged by Analyzer 0 % (0-5); Neutrophil # 2.94 X10^3/uL (2.7-7.7); Neutrophil % 52.5 % (47-70); Platelet Count 258 K/mm3 (150-450); RBC Distribution Width CV 13.6 % (11.6-14.6); RBC Distribution Width SD 43.8 fl (35.1-43.9); Red Blood Count 3.92 M/mm3 (4.2-5.4); White Blood Count 5.6 K/mm3 (4.4-11.0)
[2022-09-15 22:16] LABS: Color, Urine SEE COMMENT BELOW (Yellow); Glucose, Dipstick Normal (Normal); Ketone-Dipstick Negative (Negative); Leukocyte Esterase-Dipstick 100 /ul (Negative); Nitrite-Dipstick Negative (Negative); Occult Blood-Urine 250 /ul (Negative); Protein-Dipstick 30 mg/dl (Negative); Urine Bilirubin Dipstick Negative (Negative); Urine Clarity Cloudy (Clear); Urine Urobilinogen Normal (Normal); Urine pH 6.5 (5.0 - 8.0)
[2022-09-15 22:28] LABS: Red Blood Cells-Urine > 100 SEEN /hpf (0-5)
[2022-09-15 22:29] LABS: ALB/GLOB Ratio 0.7 RATIO (0.9-2.4); AST(SGOT) 12 U/L (15-37); Alanine Aminotransfer ALT/SGPT 14 U/L (13-56); Albumin, Serum 2.7 g/dL (3.2-5.0); Alkaline Phosphatase 60 U/L (45-117); Anion Gap 6 (5-15); BUN 12 mg/dL (7-18); BUN/Creat Ratio 11.9 RATIO (10-20); Calcium,Total 8.9 mg/dL (8.5-10.1); Chloride 116 mmol/L (98-107); Creatinine, Serum 1.01 mg/dL (0.55-1.02); EST Glomerular Filtration Rate 75 mL/min (>60); Est Glom Filt Rate - Afr Amer 90 mL/min (>60); Estimated Creatinine Clearance 80.62 ml/min; Globulin 3.7 g/dL (2.2-4.2); Glucose 92 mg/dL (74-106); Lipase 91 U/L (73-393); Potassium 3.7 mmol/L (3.5-5.1); Protein, Total 6.4 g/dL (6.4-8.2); Sodium Level 145 mmol/L (136-145)
[2022-09-15 22:33] LABS: Bacteria RARE /hpf (None Seen); Squamous Epithelial Cells - UA 0-5 SEEN /hpf (5-10); White Blood Cells 0-5 SEEN /hpf (0-5)
[2022-09-15 23:41] VITALS: BP 110/82; PULSE 69; RESP 15; O2SAT 98
--- NOTE | 2022-09-16 00:06 | ED.RN ---
colostomy appliance changed
[2022-09-16 01:30] VITALS: BP 120/72; PULSE 75; RESP 16; O2SAT 98
== END 2022-09-16 01:37 | disposition home or self-care (01) ==
PROVIDERS: Emergency Provider Emergency Medicine; PCP Pediatrics; Visit Provider Emergency Medicine
DX: R10.11 Right upper quadrant pain (principal); Z93.3 Colostomy status; G83.9 Paralytic syndrome, unspecified; R10.31 Right lower quadrant pain; R11.2 Nausea with vomiting, unspecified; Z79.01 Long term (current) use of anticoagulants; Z79.82 Long term (current) use of aspirin; Z79.899 Other long term (current) drug therapy; Z87.891 Personal history of nicotine dependence
CPT/HCPCS: 74176; 80053; 81001; 83690; 85025; 96361; 96374; 96375; 99283; J7030; A4216; J2405

== ENCOUNTER 2022-09-29 23:30 | Emergency (ER) | payer MEDICAID, SELFPAY ==
[2022-09-29 23:31] VITALS: BP 106/63; PULSE 74; RESP 18; TEMP 36.7; O2SAT 97; BMI 39.2
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
[2022-09-30] MEDS: Cephalexin 250 MG Capsule 500 MG PO (01:01)
[2022-09-30] MEDS: Smz/Tmp Ds Tablet 1 TABLET PO (01:01)
[2022-09-30 01:05] VITALS: BP 92/71; PULSE 80; RESP 18; O2SAT 96
== END 2022-09-30 03:22 | disposition home or self-care (01) ==
PROVIDERS: Emergency Provider Emergency Medicine; PCP Pediatrics; Visit Provider Emergency Medicine
DX: L02.413 Cutaneous abscess of right upper limb (principal); L03.113 Cellulitis of right upper limb; Z87.891 Personal history of nicotine dependence
CPT/HCPCS: 10060; 99285

== ENCOUNTER 2022-10-10 11:15 | Day surgery (SDC) | payer MEDICAID, SELFPAY ==
[2022-10-10 11:53] LABS: Internal QC Validated? YES +Cl - CLEAR BKGD; Pregnancy, Urine Negative Negative
[2022-10-10 11:56] VITALS: BP 112/62; PULSE 69; RESP 16; TEMP 36.7; O2SAT 97; BMI 39.9
[2022-10-10] MEDS: Lactated Ringers 1,000 ML 15 ML IV (12:04)
--- NOTE | 2022-10-10 12:50 | CALC_PTH ---
PATIENT: KIERRA NARANJO LOC: [facility] [place] U#:[id number] AGE/SX: 21/F ROOM: RE10/10/[address]: Dr. Fernanda Rodriguez MD : 2000 BED: DIS: 10/10/2022 SPEC #: [id number] RECD: 10/10/22 16:22 STATUS: ADOLFO HAQ #: [id number] GUILLERMO: 10/10/22 12:[address]: Fernanda Rodriguez DEPT: SURGICAL PATHOLOGY RECD BY: Rosamaria Babin ENTERED: 10/11/22 07:50 SP TYPE: Calculi OTHR DR: Dr. Edgard Amato MD Tissues: CALCULI Procedures: Surgery Specimen Level I HEADER OPERATION: Cystoscopy, ureteroscopy, laser lithotripsy, stone basket extraction PRE-OP DIAGNOSIS: Calculus of kidney, solitary kidney congenital, urinary retention, incontinence TISSUE SUBMITTED: Calculi for analysis GROSS DIAGNOSIS Fragments of stone, clinically kidney stones. SJ:vimal 10/11/2022 COMMENT The calculus is submitted in its entirety for chemical stone analysis. The results from this study will be reported separately. GROSS DESCRIPTION Received without fixative labeled with the patient's name and designated calculi for analysis. The specimen consists of multiple fragments of orangish-brown stone measuring in aggregate 1 x 0.8 x 0.4 cm. The entire specimen is submitted for stone analysis. / ALMA ROSA:vimal 10/11/2022 CPT: 68601
--- NOTE | 2022-10-10 14:33 | OP.PCM_ITS ---
Problems Associated Problem List Diagnoses (1) Ureteral calculus: Report of Operation Date of Procedure: 10/10/22 Pre-Operative Diagnosis: Left ureteral calculus and left renal calculus Post-Operative Diagnosis: Left ureteral calculus passed, multiple left renal calculi Surgery/Procedure Performed:: Cystoscopy, left ureteroscopy, stone basket extraction, holmium laser lithotripsy, left ureteral stent change Surgeon: Fernanda Rodriguez Type of Anesthesia: General Specimen's removed: Renal stones Description of Procedure: The patient is a 21-year-old female with a solitary left kidney who had a left ureteral stent inserted for a ureteral stone with obstruction and sepsis. She now presents for definitive management of her stone. She has been on antibiotics for her urinary tract infection. Informed consent has been obtained. The patient was taken to the operating room and placed on the operating room table. Anesthesia monitored the head, neck, airway, IV access and vital signs throughout the case. Once anesthesia was appropriately administered, the patient was placed into dorsolithotomy position was prepped and draped in usual sterile fashion. The cystoscope was inserted through the urethra under direct visualization into the urinary bladder. 2 separate 0.035 Glidewire's were inserted into the left ureteral orifice and the stent was removed. A flexible ureteroscope was inserted over one of the wires and advanced easily into the renal pelvis. There were no stones identified within the ureter. There were multiple small stones throughout the renal pelvis. The ureteroscope was then removed and a second wire was reinserted. Under fluoroscopic visualization, a ureteral access sheath was easily advanced over the wire into the left ureter. The ureteroscope was then inserted through the access sheath. The larger stones were lasered with a 200 ?m laser fiber. At this time a stone basket was utilized and all visible calculi were removed from the left kidney. The ureteroscope was then used to remove the ureteral access sheath under direct visualization revealing no evidence of ureteral injury. The remaining safety wire was used for insertion of a 6 Sur[place]amese 26 cm JJ stent which had good curling in the renal pelvis as well as the urinary bladder. The patient's Ma catheter was then replaced. She was awakened and taken to the recovery room in good condition. There were no complications during this procedure. Grafts/Implants Used: 6 x 26 JJ stent Complications None Admit VTE Documentation VTE Present on Admission: Yes VTE Mechan Device Prophylaxis: SCD's VTE Pharm Prophylaxis ordered?: No Reason prophylaxis not ordered:: Treatment Not Indicated
--- NOTE | 2022-10-10 14:39 | DCINST_ITS ---
Discharge Instructions Diet Discharge Diet: No restrictions Activity Discharge Activity: Return to Normal Activity Dressing / Incision Call your doctor if you observe: Fever of 101 or Higher, Inability to urinate and Inability to have a bowel movement Follow Up Care Please Follow Up With: Fernanda Rodriguez MD When: as scheduled Test Results: Test results from this visit will be discussed in further detail at your follow- up appointment, if applicable. Discharge Plan Admission Attending Provider: Fernanda Rodriguez Primary Care Provider: Edgard Amato Discharge Orders/Prescriptions Prescriptions: New hydrocodone-acetaminophen [hydrocodone-acetaminophen] 5-325 mg tablet 1 tab PO Q6H PRN PRN (Reason: Pain) 3 Days Qty: 12 0RF ondansetron HCl [ondansetron HCl] 8 mg tablet 8 mg PO Q8H PRN PRN (Reason: Nausea) 7 Days Qty: 20 0RF Continued acetaminophen 325 mg Tablet 650 mg PO Q4H PRN (Reason: pain/fever) aspirin 81 mg Tablet,Delayed Release (Dr/Ec) 81 mg PO DAILY baclofen 20 mg Tablet 40 mg PO TID ascorbic acid (vitamin C) 500 mg Tablet 500 mg PO BID nitroglycerin 2 % Ointment 1 inch TRANSDERMAL PRN PRN (Reason: autonomic dysreflexia) cholecalciferol (vitamin D3) [Vitamin D3] 25 mcg (1,000 unit) Capsule 25 mcg PO DAILY ysmfi-o-crhaadctrttun Tablet 1 tab PO DAILY captopril 12.5 mg Tablet 3.125 mg PO DAILY PRN PRN (Reason: autonomic dysreflexia) docusate sodium 100 mg Capsule 100 mg PO TID PRN (Reason: stool softener) enoxaparin 40 mg/0.4 mL Syringe 40 mg SUBCUT Q12H escitalopram oxalate 20 mg Tablet 20 mg PO DAILY calcium carbonate-vitamin D3 [Calcium 500 + D] 500 mg(1,250mg) -200 unit Tablet 2 tab PO BID methenamine hippurate [Hiprex] 1 gram tablet 1 g PO Q12H Rx Instructions: can be continued indefinitely. For UTI prevention. levetiracetam [Keppra] 750 mg tablet 750 mg PO BID nystatin 100,000 unit/gram powder 1 applic topical BID sulfamethoxazole-trimethoprim 800-160 mg tablet 1 tab PO BID Qty: 14 0RF cephalexin 500 mg capsule 500 mg PO Q6 Qty: 40 0RF Referrals / Follow Up: Edgard Amato MD [Primary Care Provider] - Disposition Disposition (needs filled in before D/C Order can be placed): Home, Self Care
[2022-10-10 16:11] VITALS: BP 112/62; BP 115/71; PULSE 82; RESP 18; TEMP 36.1; O2SAT 99
[2022-10-10 16:15] VITALS: BP 112/62; BP 112/70; PULSE 76; RESP 18; O2SAT 96
[2022-10-10 16:30] VITALS: BP 112/62; BP 120/82; PULSE 76; RESP 18; TEMP 36.6; O2SAT 96
[2022-10-10 17:30] VITALS: BP 112/62; BP 116/67; PULSE 72; RESP 16; TEMP 36.8; O2SAT 100
[2022-10-18 11:38] LABS: Source Not Provided
== END 2022-10-10 17:34 | disposition home or self-care (01) ==
LOC: SDC 11:17 → AC 11:19
PROVIDERS: Anesthesiology; PCP Pediatrics; Visit Provider Urology
PROC: (CPT 52332; principal; 2022-10-10 12:40)
DX: N20.0 Calculus of kidney (principal); G82.20 Paraplegia, unspecified; Z93.3 Colostomy status; F32.A Depression, unspecified; I10 Essential (primary) hypertension; R32 Unspecified urinary incontinence; Q60.2 Renal agenesis, unspecified; G90.4 Autonomic dysreflexia; Q51.28 Other and unspecified doubling of uterus; R33.9 Retention of urine, unspecified; N31.9 Neuromuscular dysfunction of bladder, unspecified; Z79.899 Other long term (current) drug therapy; Z79.82 Long term (current) use of aspirin
CPT/HCPCS: 52356; 76000; 81025; 82360; 88300; J7120; J2405

== ENCOUNTER 2022-10-27 06:38 | Emergency (ER) | payer MEDICAID, SELFPAY ==
[2022-10-27 06:39] VITALS: BP 104/91; PULSE 78; RESP 18; TEMP 36.6; O2SAT 98; BMI 39.9
--- NOTE | 2022-10-27 07:28 | CT_ITS ---
EXAM: CT ABDOMEN AND PELVIS WITHOUT INTRAVENOUS CONTRAST CLINICAL INDICATION: abdominal pain TECHNIQUE: Helically acquired images were obtained of the abdomen and pelvis without intravenous contrast. This CT exam was performed using one or more of the following dose reduction techniques: automated exposure control, adjustment of the mA and/or kV according to patient size, and/or use of iterative reconstruction technique. This report was created using [employer] report generation technology. COMPARISON: CT Abdomen Pelvis dated september 15 2022 November 10 2021 and 04/19/2015 FINDINGS: LOWER THORAX: Bibasilar linear pulmonary densities again noted consistent with scarring or atelectasis. ABDOMEN: LIVER: Normal. Homogeneous. GALLBLADDER AND BILE DUCTS: Normal. No calcified gallstones. No gallbladder distention or wall edema. No intra- or extrahepatic biliary ductal dilation. PANCREAS: Normal. No focal cystic mass. SPLEEN: Normal. Normal size without focal cystic or solid mass. ADRENALS: Normal. No nodules. KIDNEYS AND URETERS: See below. STOMACH AND BOWEL: Left colostomy again seen. PELVIS: APPENDIX: No evidence of acute appendicitis. BLADDER: Ma catheter in place within a decompressed urinary bladder. REPRODUCTIVE: Didelphys uterus again seen. 3.5 cm low-density right adnexal mass likely represents physiological change of the ovary. ABDOMEN and PELVIS: INTRAPERITONEAL SPACE: Normal. No ascites or other fluid collection. No free air. BONES/JOINTS: Stable sacral decubitus. No suspicious lytic or blastic abnormality. SOFT TISSUES: Normal. No discrete abdominal or pelvic wall hernia. VASCULATURE: Normal. Abdominal aorta is non-dilated. LYMPH NODES: Normal. No enlarged lymph nodes. TUBES, LINES AND DEVICES: A plastic right kidney again noted on image 84 of sequence 2 compensatory hypertrophy of the left kidney noted. Left upper J ureteral stent catheter remains in place. Mild left hydronephrosis. Small stones are noted within the lower pole calyces of the left kidney. No evidence of ureteral stone. CT/Abdomen/Pelvis without Cont IMPRESSION: 1. Interval development of mild left hydronephrosis which may be secondary to occlusion of the double-J ureteral stent catheter. Left nephrolithiasis. 2. Aplastic right kidney. 3. 3.5 cm right ovarian lesion likely representing physiologic change of the ovary. Electronically Signed: Maykel Ryder MD at 8:43 EST ,
--- NOTE | 2022-10-27 07:44 | EDS_ITS ---
HPI History of Present Illness Chief Complaint: Complaint Informant: patient Narrative Narrative: 21-year-old female with history of paraplegia chronic indwelling Ma catheter presenting to the emergency department with lower abdominal pain. Patient is due to have a suprapubic catheter placed. She notes that the catheter is not draining as much urine as it should. She denies any diarrhea or vomiting. She notes a lower abdominal pain that began yesterday. No fevers. She notes decreased appetite. No URI symptoms. 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 Depression Double uterus Excessive bleeding Former smoker Indwelling urethral catheter present Neck fracture New onset seizure Open wound Paraplegic spinal paralysis Seizures Single kidney Ureteral calculus Urinary tract infection Wounds, multiple Home Medications [id number] 1 tab PO DAILY bladder spasms 07/17/21 [History Last Taken 09/12/22] ascorbic acid (vitamin C) 500 mg tablet 500 mg PO BID supplement 07/17/21 [History Last Taken 09/12/22] aspirin 81 mg tablet,delayed release 81 mg PO DAILY heart health 07/17/21 [History Last Taken 09/12/22] baclofen 20 mg tablet 40 mg PO TID muscle spasms 07/17/21 [History Last Taken 09/12/22] calcium carbonate 500 mg-vitamin D3 5 mcg (200 unit) tablet (Calcium 500 + D) 2 tab PO BID supplement 07/17/21 [History Last Taken 09/12/22] captopril 12.5 mg tablet 3.125 mg PO DAILY PRN PRN autonomic dysreflexia 07/17/21 [History Last Taken Unknown] cholecalciferol (vitamin D3) 25 mcg (1,000 unit) capsule (Vitamin D3) 25 mcg PO DAILY supplement 07/17/21 [History Last Taken 09/12/22] docusate sodium 100 mg capsule 100 mg PO TID PRN stool softener 07/17/21 [History Last Taken Unknown] enoxaparin 40 mg/0.4 mL subcutaneous syringe 40 mg subcut Q12H prevent blood clots 07/17/21 [History Last Taken 10/09/22] escitalopram oxalate 20 mg tablet 20 mg PO DAILY depression 07/17/21 [History Last Taken 09/12/22] nitroglycerin 2 % transdermal ointment 1 inch transdermal PRN PRN autonomic dysreflexia 07/17/21 [History Last Taken Unknown] levetiracetam 750 mg tablet (Keppra) 750 mg PO BID seizures 09/12/22 [History Last Taken 10/10/22] methenamine hippurate 1 gram tablet (Hiprex) 1 g PO Q12H UTI prevention 09/12/22 [History Last Taken 09/12/22] nystatin 100,000 unit/gram topical powder 1 applic topical BID skin irritation 09/12/22 [History Last Taken Unknown] hydrocodone-acetaminophen 5-325mg 5mg-325mg 1 tab PO Q6H PRN PRN Pain 3 days #12 TABLETS 10/10/22 [Rx Last Taken Unknown] ciprofloxacin HCl 500 mg tablet 500 mg PO BID #14 TABLETS 10/27/22 [Rx Last Taken Unknown] Allergy/AdvReac Type Severity Reaction Status Date / Time No Known Allergies Allergy Verified 10/23/22 14:06 Surgical History H/O thumb surgery History of colectomy History of urethral stent S/P cervical spinal fusion Social History household members: family Smoking Status: Former smoker alcohol intake: never substance use type: does not use ROS ROS ED Constitutional Constitutional ED: Denies chills or weight loss Eyes Eyes: Denies change in vision or diplopia ENT ENT ED: Denies ear pain, rhinorrhea or sore throat Cardiovascular Cardiovascular: Denies chest pain, orthopnea, palpitations or racing heartbeat Respiratory/Chest Respiratory/Chest: Denies cough, dyspnea or orthopnea Gastrointestinal Gastrointestinal: Reports abdominal pain and nausea; Denies diarrhea or vomiting Genitourinary Genitourinary ED: Reports other Details: See history of present illness ; Denies dysuria, hematuria or urinary frequency Musculoskeletal Musculoskeletal: Denies arthralgias, back pain or myalgias Integumentary Denies abscess or rash Neurologic Neurologic: Denies headache(s) or weakness Psychiatric Psychiatric: Denies anxiety, depression, suicidal ideation or suicidal thoughts Endocrine Endocrinology: Denies polydipsia, polyphagia or polyuria Allergic/Immunologic Allergic/Immunologic ED: Denies mouth swelling, tongue swelling or urticaria EXAM Physical Exam Narrative Exam Narrative: There is approximately 200 cc of alfonso colored urine in the catheter and bag. There is a significant amount of sediment noted in the catheter. Const Vital Signs: 10/27/22 06:39 10/27/22 06:39 10/27/22 08:39 Temperature 97.8 F 97.8 F Temperature Source Temporal Temporal Pulse Rate 78 78 85 Respiratory Rate 18 18 18 Blood Pressure 104/91 H 104/91 H 119/89 H Blood Pressure Mean 95 95 99 Pulse Ox 98 98 100 Oxygen Delivery Method Room Air Room Air Room Air 10/27/22 10:29 Temperature Temperature Source Pulse Rate 80 Respiratory Rate 19 H Blood Pressure 115/71 Blood Pressure Mean 85 Pulse Ox 97 Oxygen Delivery Method Room Air Positive well nourished, well developed and obese General Appearance ED: well developed Nutritional Appearance: obese HEENT Reports normocephalic, head/scalp atraumatic and moist mucous membranes Eyes PERRL and EOMs intact bilaterally Neck no lymphadenopathy, supple and no JVD Resp normal respiratory effort and clear to auscultation bilaterally Cardio regular rate, regular rhythm and no murmurs GI normal to inspection, nondistended, normoactive bowel sounds and non-tender Palpation: soft Back/Spine no CVA tenderness and normal ROM Extremity normal to inspection General Extremety ED: Negative for edema General Extremity: Negative for edema Neuro oriented x3 and CN's II-XII intact bilaterally Sensorium / Orientation: alert Motor Exam: strength 5/5 throughout Psych mental status grossly normal Mood & Affect: Negative for depressed or tearful Skin no rashes or lesions noted and no wounds MDM MDM MDM Narrative Medical decision making narrative: The white count is 9.8. Urinalysis 10-25 red cells greater than 100 white blood cells positive nitrates positive leukocyte Estrace 2+ bacteria and this was sent for culture. CT abdomen pelvis demonstrates some mild hydronephrosis on the left. Difficult to determine exact etiology of this. She has follow-up with urology later this week when she is supposed to have her stent removed from the left side as well as a suprapubic catheter placed. I have asked that she contact Dr. Rodriguez tomorrow to discuss today's findings Lab Data Attestation: I reviewed the patient's lab results. Labs: Laboratory Results - last 24 hr 10/27/22 10/27/22 10/27/22 07:40 07:40 09:00 WBC 9.8 RBC 4.15 L Hgb 12.0 Hct 36.5 L MCV 88.0 MCH 28.9 MCHC 32.9 RDW Std Deviation 42.5 RDW Coeff of Anurag 13.1 Plt Count 239 MPV 10.2 Immature Gran % (Auto) 0.300 Neut % (Auto) 77.5 H Lymph % (Auto) 14.7 L [place] % (Auto) 5.8 Eos % (Auto) 1.4 Baso % (Auto) 0.3 Absolute Neuts (auto) 7.6 Absolute Lymphs (auto) 1.44 Nucleated RBC % 0 Sodium 143 Potassium 3.6 Chloride 112 H Carbon Dioxide 26.0 Anion Gap 5 BUN 14 Creatinine 1.29 H Estim Creat Clear Calc 63.12 Est GFR (MDRD) Af Amer 68 Est GFR (MDRD) Non-Af 56 L BUN/Creatinine Ratio 10.9 Glucose 98 Calcium 9.2 Total Bilirubin 0.50 AST 8 L ALT 18 Alkaline Phosphatase 90 Total Protein 6.9 Albumin 2.9 L Globulin 4.0 Albumin/Globulin Ratio 0.7 L Urine Color Yellow Urine Clarity Cloudy Urine pH 7.0 Ur Specific [place] 1.010 Urine Protein 500 H Urine Glucose (UA) Normal Urine Ketones Negative Urine Occult Blood 250 H Urine Nitrite Positive H Urine Bilirubin Negative Urine Urobilinogen Normal Ur Leukocyte Esterase 500 H Urine RBC 10-25 SEEN Urine WBC >100 SEEN Ur Squamous Epith Cells 0 SEEN Urine Bacteria 2+ Urine Mucus 0 SEEN Radiography Diagnostic Testing: Clinical Impression(s) from Imaging Studies Abdomen/Pelvis CT 10/27/22 07:28 IMPRESSION: 1. Interval development of mild left hydronephrosis which may be secondary to occlusion of the double-J ureteral stent catheter. Left nephrolithiasis. 2. Aplastic right kidney. 3. 3.5 cm right ovarian lesion likely representing physiologic change of the ovary. Electronically Signed: Maykel Ryder MD at 8:43 EST , Discharge Plan Triage Chief Complaint: Complaint ED Provider: Morris Wiggins Dx/Rx/DC Orders Clinical Impression: Abdominal pain, acute, Catheter-associated urinary tract infection, Paraplegia Prescriptions: New ciprofloxacin HCl [ciprofloxacin HCl] 500 mg tablet 500 mg PO BID Qty: 14 0RF No Action aspirin 81 mg Tablet,Delayed Release (Dr/Ec) 81 mg PO DAILY baclofen 20 mg Tablet 40 mg PO TID ascorbic acid (vitamin C) 500 mg Tablet 500 mg PO BID nitroglycerin 2 % Ointment 1 inch TRANSDERMAL PRN PRN (Reason: autonomic dysreflexia) cholecalciferol (vitamin D3) [Vitamin D3] 25 mcg (1,000 unit) Capsule 25 mcg PO DAILY [id number] Tablet 1 tab PO DAILY captopril 12.5 mg Tablet 3.125 mg PO DAILY PRN PRN (Reason: autonomic dysreflexia) docusate sodium 100 mg Capsule 100 mg PO TID PRN (Reason: stool softener) enoxaparin 40 mg/0.4 mL Syringe 40 mg SUBCUT Q12H escitalopram oxalate 20 mg Tablet 20 mg PO DAILY calcium carbonate-vitamin D3 [Calcium 500 + D] 500 mg(1,250mg) -200 unit Tablet 2 tab PO BID methenamine hippurate [Hiprex] 1 gram tablet 1 g PO Q12H Rx Instructions: can be continued indefinitely. For UTI prevention. levetiracetam [Keppra] 750 mg tablet 750 mg PO BID nystatin 100,000 unit/gram powder 1 applic topical BID hydrocodone-acetaminophen [hydrocodone-acetaminophen] 5-325 mg tablet 1 tab PO Q6H PRN PRN (Reason: Pain) 3 Days Qty: 12 0RF Primary Care Provider: Edgard Amato Referrals: Edgard Amato MD [Primary Care Provider] - Fernanda Rodriguez MD [Med Staff - Active Staff] - As Needed Disposition Disposition: Home, Self Care
[2022-10-27 07:54] LABS: Absolute Lymphocyte Count 1.44 X10^3/uL (0.83-4.51); Absolute Neutrophil Count 7.6 X10^3/uL (2.0-7.7); Basophil# 0.03 X10^3/uL; Basophil% 0.3 % (0-1); Eosinophil# 0.14 X10^3/uL; Eosinophils% 1.4 % (0-5); Hematocrit 36.5 % (37-47); Lymphocyte # 1.44 X10^3/ul (0.83-4.51); Lymphocyte % 14.7 % (19-41); Mean Corp Hgb Conc 32.9 g/dL (32-36); Mean Corpuscular Hgb 28.9 pg (27.0-32.0); Mean Platelet Vol. 10.2 fl (6.2-12.0); Monocyte# 0.57 X10^3/uL; Monocyte% 5.8 % (0-10); NRBC Flagged by Analyzer 0 % (0-5); Neutrophil # 7.58 X10^3/uL (2.7-7.7); Neutrophil % 77.5 % (47-70); Platelet Count 239 K/mm3 (150-450); RBC Distribution Width CV 13.1 % (11.6-14.6); RBC Distribution Width SD 42.5 fl (35.1-43.9); Red Blood Count 4.15 M/mm3 (4.2-5.4); White Blood Count 9.8 K/mm3 (4.4-11.0)
[2022-10-27 08:12] LABS: ALB/GLOB Ratio 0.7 RATIO (0.9-2.4); AST(SGOT) 8 U/L (15-37); Alanine Aminotransfer ALT/SGPT 18 U/L (13-56); Albumin, Serum 2.9 g/dL (3.2-5.0); Alkaline Phosphatase 90 U/L (45-117); Anion Gap 5 (5-15); BUN 14 mg/dL (7-18); BUN/Creat Ratio 10.9 RATIO (10-20); Calcium,Total 9.2 mg/dL (8.5-10.1); Chloride 112 mmol/L (98-107); Creatinine, Serum 1.29 mg/dL (0.55-1.02); EST Glomerular Filtration Rate 56 mL/min (>60); Est Glom Filt Rate - Afr Amer 68 mL/min (>60); Estimated Creatinine Clearance 63.12 ml/min; Glucose 98 mg/dL (74-106); Potassium 3.6 mmol/L (3.5-5.1); Protein, Total 6.9 g/dL (6.4-8.2); Sodium Level 143 mmol/L (136-145)
[2022-10-27 08:39] VITALS: BP 119/89; PULSE 85; RESP 18; O2SAT 100
[2022-10-27 09:07] LABS: Mucous, Urine 0 SEEN /hpf (<or=2+); Squamous Epithelial Cells - UA 0 SEEN /hpf (5-10)
[2022-10-27 09:13] LABS: Color, Urine Yellow (Yellow); Glucose, Dipstick Normal (Normal); Ketone-Dipstick Negative (Negative); Leukocyte Esterase-Dipstick 500 /ul (Negative); Nitrite-Dipstick Positive (Negative); Occult Blood-Urine 250 /ul (Negative); Protein-Dipstick 500 mg/dl (Negative); Urine Bilirubin Dipstick Negative (Negative); Urine Clarity Cloudy (Clear); Urine Urobilinogen Normal (Normal)
[2022-10-27 09:29] LABS: Bacteria 2+ /hpf (None Seen); Red Blood Cells-Urine 10-25 SEEN /hpf (0-5); White Blood Cells >100 SEEN /hpf (0-5)
--- NOTE | 2022-10-27 09:47 | ED.RN ---
PO zofran 8mg wasted d/t dropping on floor. Verified with Joanne MARTINES.
[2022-10-27] MEDS: Ondansetron ODT 4 MG Tablet PO (09:49)
[2022-10-27 10:29] VITALS: BP 115/71; PULSE 80; RESP 19; O2SAT 97
== END 2022-10-27 11:33 | disposition home or self-care (01) ==
PROVIDERS: Emergency Provider Emergency Medicine; PCP Pediatrics; Visit Provider Emergency Medicine
DX: T83.511A Infection and inflammatory reaction due to indwelling urethral catheter, initial encounter (principal); G82.20 Paraplegia, unspecified; N13.2 Hydronephrosis with renal and ureteral calculous obstruction; R10.9 Unspecified abdominal pain; Z87.891 Personal history of nicotine dependence; E66.9 Obesity, unspecified
CPT/HCPCS: 87088; 87086; 51702; 81001; 74176; 87077; 87186; 99285; 80053; 85025; A4216

== ENCOUNTER 2022-10-28 11:51 | Inpatient (IN) | payer MEDICAID, SELFPAY ==
[2022-10-28] VITALS (7 sets, daily range): BP systolic 111–141; BP diastolic 79–89; PULSE 84–101; RESP 14–20; TEMP 36.7–37.8; O2SAT 92–96; BMI 41.0; BMI 39.2
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
--- NOTE | 2022-10-28 12:32 | US_ITS ---
STUDY: RENAL ULTRASOUND - COMPLETE REASON FOR EXAM: Female, 21 years old. Decreased urine output, hydronephrosis -- right renal agenesis TECHNIQUE: Ultrasound evaluation of the kidneys was performed with real-time and static romero-scale imaging. COMPARISON: Comparison is made with prior CT scan dated 10/27/2022. FINDINGS: RIGHT KIDNEY: Aplastic right kidney. LEFT KIDNEY: with moderate renal hypertrophy. The left kidney measures 14.8 cm x 6.9 cm x 7.1 cm. There is a normal cortex of the left kidney. The renal cortex measures 2.4 cm. There is no left renal mass or cyst. There is a 4 mm x 4 mm x 4 mm calculus in the midportion of the kidney. There is mild hydronephrosis of the left kidney. DISTAL LEFT URETER: There is non-visualization of the distal left ureter. There is no demonstrated left ureterovesical junction calculus. There is no demonstrated left ureteral jet. A ureteral stent is seen in the left ureter. BLADDER: A KULKARNI catheter is seen within the empty bladder. US/Kidney and Bladder IMPRESSION: Agenesis of the right kidney. Hypertrophy of the left kidney. Mild degree of left hydronephrosis. A left-sided double-J stent is seen. 4 mm x 4 mm x 4 mm nonobstructive left intrarenal calculus. Electronically Signed: Brien Pittman MD at 14:26 EST ,
[2022-10-28 13:04] LABS: Absolute Lymphocyte Count 1.15 X10^3/uL (0.83-4.51); Absolute Neutrophil Count 14.3 X10^3/uL (2.0-7.7); Basophil# 0.04 X10^3/uL; Basophil% 0.2 % (0-1); Eosinophil# 0.06 X10^3/uL; Eosinophils% 0.4 % (0-5); Hematocrit 33.9 % (37-47); Hemoglobin 11.1 g/dL (12.0-15.0); Lymphocyte # 1.15 X10^3/ul (0.83-4.51); Mean Corp Hgb Conc 32.7 g/dL (32-36); Mean Corpuscular Hgb 28.6 pg (27.0-32.0); Mean Corpuscular Volume 87.4 fL (81-99); Mean Platelet Vol. 10.3 fl (6.2-12.0); Monocyte# 0.77 X10^3/uL; Monocyte% 4.7 % (0-10); NRBC Flagged by Analyzer 0 % (0-5); Neutrophil # 14.26 X10^3/uL (2.7-7.7); Platelet Count 198 K/mm3 (150-450); RBC Distribution Width CV 13.3 % (11.6-14.6); RBC Distribution Width SD 42.5 fl (35.1-43.9); Red Blood Count 3.88 M/mm3 (4.2-5.4); White Blood Count 16.4 K/mm3 (4.4-11.0)
[2022-10-28 13:19] LABS: Anion Gap 8 (5-15); BUN 21 mg/dL (7-18); BUN/Creat Ratio 11.7 RATIO (10-20); Calcium,Total 8.9 mg/dL (8.5-10.1); Chloride 111 mmol/L (98-107); Creatinine, Serum 1.79 mg/dL (0.55-1.02); EST Glomerular Filtration Rate 38 mL/min (>60); Est Glom Filt Rate - Afr Amer 47 mL/min (>60); Estimated Creatinine Clearance 45.49 ml/min; Glucose 126 mg/dL (74-106); Potassium 3.5 mmol/L (3.5-5.1); Sodium Level 142 mmol/L (136-145)
[2022-10-28 13:38] LABS: Mucous, Urine 0 SEEN /hpf (<or=2+)
[2022-10-28 13:41] LABS: Color, Urine Yellow (Yellow); Glucose, Dipstick Normal (Normal); Ketone-Dipstick Negative (Negative); Leukocyte Esterase-Dipstick 500 /ul (Negative); Nitrite-Dipstick Positive (Negative); Occult Blood-Urine 250 /ul (Negative); Protein-Dipstick 100 mg/dl (Negative); Urine Bilirubin Dipstick Negative (Negative); Urine Clarity Turbid (Clear); Urine Urobilinogen Normal (Normal)
[2022-10-28 13:48] LABS: Red Blood Cells-Urine 10-25 SEEN /hpf (0-5); White Blood Cells >100 SEEN /hpf (0-5)
[2022-10-28 13:49] LABS: Bacteria 3+ /hpf (None Seen)
[2022-10-28 13:50] LABS: Squamous Epithelial Cells - UA 0-5 SEEN /hpf (5-10); Yeast-Urine 2+ /hpf (None Seen)
[2022-10-28] MEDS: Fluconazole 100 MG Tablet 200 MG PO (16:04)
[2022-10-28] MEDS: 0.9% Normal Saline 1,000 ML 999 ML IV (16:04)
[2022-10-28] MEDS: 0.45% Normal Saline 1,000 ML 100 ML IV (18:47)
[2022-10-28] MEDS: levETIRAcetam 750 MG Tablet PO (22:07)
[2022-10-28] MEDS: Baclofen 10 MG Tablet 40 MG PO (22:07)
[2022-10-28] MEDS: Nystatin Powder 15gm Bottle 1 APPLIC TOPICAL (22:08)
[2022-10-28] MEDS: Docusate Sodium 100 MG Capsule PO (22:21)
[2022-10-29] VITALS (11 sets, daily range): BP systolic 103–141; BP diastolic 64–93; PULSE 95–113; RESP 16–24; TEMP 37.1–37.9; O2SAT 88–96
[2022-10-29] MEDS: Ondansetron 4 MG/2 ML Vial IV ×2 (02:23→19:40)
[2022-10-29] MEDS: 0.9% Saline Lock 10 ML Syringe IV ×2 (02:23→19:40)
[2022-10-29] MEDS: 0.45% Normal Saline 1,000 ML 100 ML IV ×3 (03:20→22:32)
[2022-10-29 06:32] LABS: Absolute Lymphocyte Count 1.15 X10^3/uL (0.83-4.51); Basophil# 0.02 X10^3/uL; Basophil% 0.2 % (0-1); Eosinophil# 0.03 X10^3/uL; Eosinophils% 0.3 % (0-5); Hematocrit 31.3 % (37-47); Hemoglobin 10.2 g/dL (12.0-15.0); Lymphocyte # 1.15 X10^3/ul (0.83-4.51); Lymphocyte % 9.6 % (19-41); Mean Corp Hgb Conc 32.6 g/dL (32-36); Mean Corpuscular Hgb 28.6 pg (27.0-32.0); Mean Corpuscular Volume 87.7 fL (81-99); Mean Platelet Vol. 10.1 fl (6.2-12.0); Monocyte# 0.69 X10^3/uL; Monocyte% 5.8 % (0-10); NRBC Flagged by Analyzer 0 % (0-5); Neutrophil # 10.01 X10^3/uL (2.7-7.7); Neutrophil % 83.6 % (47-70); Platelet Count 193 K/mm3 (150-450); RBC Distribution Width CV 13.1 % (11.6-14.6); RBC Distribution Width SD 41.5 fl (35.1-43.9); Red Blood Count 3.57 M/mm3 (4.2-5.4)
[2022-10-29] MEDS: Baclofen 10 MG Tablet 40 MG PO ×3 (06:43→22:35)
[2022-10-29 07:01] LABS: BUN 16 mg/dL (7-18); BUN/Creat Ratio 9.7 RATIO (10-20); Calcium,Total 8.2 mg/dL (8.5-10.1); Creatinine, Serum 1.65 mg/dL (0.55-1.02); EST Glomerular Filtration Rate 42 mL/min (>60); Est Glom Filt Rate - Afr Amer 51 mL/min (>60); Estimated Creatinine Clearance 49.35 ml/min; Glucose 91 mg/dL (74-106); Sodium Level 137 mmol/L (136-145)
[2022-10-29 07:02] LABS: Anion Gap 9 (5-15); Chloride 105 mmol/L (98-107)
--- NOTE | 2022-10-29 08:35 | NURSING ---
Patient with small amount green emesis. Cleansed and new linens provided. Harris MARTINES aware.
[2022-10-29] MEDS: Cefazolin 1 GM/50 ML BAG IV (09:04)
[2022-10-29] MEDS: Potassium Chloride Oral Tablet 20 MEQ 40 MEQ PO (09:05)
--- NOTE | 2022-10-29 09:54 | WOUNDNOTE ---
Colostomy appliance in place to the left lower abdomen. patient states the appliance was just change on Friday. pt does not want appliance changed at this time. offered to assist when needed. patient appreciative.
--- NOTE | 2022-10-29 10:15 | CASEMGMT ---
CONRAD TILLMAN Face to Face with patient for initial transition planning/care coordination assessment. RN CM introduced self and role at [facility]. Patient lying in bed, alert and oriented, mother at bedside. Patient willing to participate in assessment and is able to answer all questions appropriately. Care providers, pharmacy, and demographics verified. Patient wishes to discharge home with resumption of HHC. Patient states she has no further needs or concerns at this time. CM to follow for discharge planning needs that may arise. PCP: [place] Specialists: Michael Brody Pharmacy: [facility] Insurance: [employer] Prescription Benefit: yes Living Will/HPOA: none LNOK: mother Living Arrangements: Patient lives with mother in a 2 story apartment with bed and bath on first floor. 3 steps to enter the home. Mother assists patient with ADLs Transportation: mother DME/HHC: Patient has hospital bed, wheelchair, and karo at home. Patient is currently active with [facility] for nursing and aides. Patient states aides come every Friday and Friday. Patient declined list for HHC agencies. Disposition Plan: Patient to discharge home with resumption of HHC, family support, and follow-up plans in place. Adela VILLAR, RN, CM
[2022-10-29] MEDS: Nystatin Powder 15gm Bottle 1 APPLIC TOPICAL ×2 (10:33→22:35)
[2022-10-29] MEDS: Aspirin E.C. 81 MG Tablet PO (10:34)
[2022-10-29] MEDS: Fluconazole 100 MG Tablet PO (10:34)
[2022-10-29] MEDS: Escitalopram Oxalate 20 MG Tablet PO (10:34)
[2022-10-29] MEDS: Cholecalciferol (VIT D3) 25 MCG TABLET (1,000 UNITS) PO (10:34)
[2022-10-29] MEDS: levETIRAcetam 750 MG Tablet PO ×2 (10:34→22:35)
[2022-10-29] MEDS: Docusate Sodium 100 MG Capsule PO ×2 (10:35→22:33)
[2022-10-29] MEDS: Ciprofloxacin 200 MG/100 ML BAG 100 MG IV ×2 (11:16→22:32)
--- NOTE | 2022-10-29 12:05 | CASEMGMT ---
Referral sent to [facility] for resumption via [facility] at this time.
[2022-10-29] MEDS: Acetaminophen 325 MG Tablet 650 MG PO (15:54)
[2022-10-30 02:52] VITALS: BP 129/86; PULSE 95; RESP 18; TEMP 37.1; O2SAT 94
[2022-10-30] MEDS: Acetaminophen 325 MG Tablet 650 MG PO (02:54)
[2022-10-30] MEDS: Baclofen 10 MG Tablet 40 MG PO ×3 (06:30→22:22)
[2022-10-30 06:41] LABS: Absolute Lymphocyte Count 1.16 X10^3/uL (0.83-4.51); Absolute Neutrophil Count 5.1 X10^3/uL (2.0-7.7); Basophil# 0.03 X10^3/uL; Basophil% 0.4 % (0-1); Eosinophil# 0.05 X10^3/uL; Eosinophils% 0.7 % (0-5); Hematocrit 30.4 % (37-47); Hemoglobin 10.1 g/dL (12.0-15.0); Lymphocyte # 1.16 X10^3/ul (0.83-4.51); Lymphocyte % 16.9 % (19-41); Mean Corp Hgb Conc 33.2 g/dL (32-36); Mean Corpuscular Hgb 29.2 pg (27.0-32.0); Mean Corpuscular Volume 87.9 fL (81-99); Mean Platelet Vol. 10.1 fl (6.2-12.0); Monocyte# 0.56 X10^3/uL; Monocyte% 8.2 % (0-10); NRBC Flagged by Analyzer 0 % (0-5); Neutrophil # 5.05 X10^3/uL (2.7-7.7); Neutrophil % 73.5 % (47-70); Platelet Count 193 K/mm3 (150-450); RBC Distribution Width CV 13.3 % (11.6-14.6); RBC Distribution Width SD 42.9 fl (35.1-43.9); Red Blood Count 3.46 M/mm3 (4.2-5.4); White Blood Count 6.9 K/mm3 (4.4-11.0)
[2022-10-30 07:04] LABS: Anion Gap 8 (5-15); BUN 12 mg/dL (7-18); BUN/Creat Ratio 9.4 RATIO (10-20); Calcium,Total 8.5 mg/dL (8.5-10.1); Chloride 109 mmol/L (98-107); Creatinine, Serum 1.28 mg/dL (0.55-1.02); EST Glomerular Filtration Rate 57 mL/min (>60); Est Glom Filt Rate - Afr Amer 69 mL/min (>60); Estimated Creatinine Clearance 63.61 ml/min; Glucose 97 mg/dL (74-106); Potassium 3.6 mmol/L (3.5-5.1); Sodium Level 140 mmol/L (136-145)
--- NOTE | 2022-10-30 08:08 | US_ITS ---
INDICATION: left solitary kidney hydronephrosis EXAMINATION: US Kidney(s) complete (eg, kidneys and bladder) TECHNIQUE: Issa scale and color doppler images were obtained of the kidneys. COMPARISON: 10/28/2022. FINDINGS: RIGHT KIDNEY: Aplastic right kidney. LEFT KIDNEY: There is moderate renal hypertrophy. The left kidney measures 14.8 cm x 6.9 cm x 8 cm. There is a normal cortex of the left kidney. There is no left renal mass or cyst. There is a 4 mm x 4 mm x 4 mm calculus in the midportion of the kidney. There is stable to slightly improved mild hydronephrosis of the left kidney. DISTAL LEFT URETER: There is non-visualization of the distal left ureter. There is no demonstrated left ureterovesical junction calculus. There is no demonstrated left ureteral jet. A ureteral stent is seen in the left ureter. BLADDER: A KULKARNI catheter is seen within the empty bladder. US/Kidney and Bladder IMPRESSION: Stable to slightly improved mild left hydronephrosis. No other change from recent prior dated 10/28/2022. Electronically Signed: Dale Buckner MD at 22:21 EST ,
[2022-10-30 09:44] VITALS: BP 133/93; PULSE 74; RESP 16; TEMP 36.6; O2SAT 96
[2022-10-30] MEDS: Nystatin Powder 15gm Bottle 1 APPLIC TOPICAL ×2 (10:02→22:26)
[2022-10-30] MEDS: 0.45% Normal Saline 1,000 ML 100 ML IV ×2 (10:02→21:32)
[2022-10-30] MEDS: Ciprofloxacin 200 MG/100 ML BAG 100 MG IV ×2 (10:09→22:20)
[2022-10-30] MEDS: Aspirin E.C. 81 MG Tablet PO (10:10)
[2022-10-30] MEDS: Fluconazole 100 MG Tablet PO (10:10)
[2022-10-30] MEDS: Cholecalciferol (VIT D3) 25 MCG TABLET (1,000 UNITS) PO (10:11)
[2022-10-30] MEDS: levETIRAcetam 750 MG Tablet PO ×2 (10:11→22:22)
[2022-10-30] MEDS: Escitalopram Oxalate 20 MG Tablet PO (10:11)
[2022-10-30] MEDS: 0.9% Saline Lock 10 ML Syringe IV (15:23)
[2022-10-30 15:48] VITALS: BP 147/98; PULSE 78; RESP 16; TEMP 36.9; O2SAT 94
--- NOTE | 2022-10-30 18:22 | HP.PCM_ITS ---
HPI - General General Date of Admission: 10/28/22 Date of Service: 10/29/22 HPI Narrative This is late entry for 10/29/30 patient evaluation. KIERRA NARANJO, is a 21 F who is a paraplegic female with a solitary left kidney. She had an obstructing ureteral calculus and subsequently has undergone cystoscopy with left ureteroscopy laser lithotripsy and left ureteral stent insertion. She was scheduled to have a stent removal, suprapubic tube insertion, mid urethral sling this week, but she developed issues with her catheter draining along with signs of a urinary tract infection. She was sent to the emergency room for evaluation. She had an elevated white blood cell count, elevated creatinine and was admitted for evaluation and management. After 1 day of intravenous fluid administration, Diflucan and antibiotics, she is feeling much improved. Her nausea and vomiting has improved. She is sitting up in bed, visiting with family. 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 Depression Double uterus Excessive bleeding Former smoker Indwelling urethral catheter present Neck fracture New onset seizure Open wound Paraplegic spinal paralysis Seizures Single kidney Ureteral calculus Urinary tract infection Wounds, multiple Home Medications [id number]-s-[id number] 1 tab PO DAILY bladder spasms 07/17/21 [History Last Taken 10/27/22 08:00] ascorbic acid (vitamin C) 500 mg tablet 500 mg PO BID supplement 07/17/21 [History Last Taken 10/27/22 22:00] aspirin 81 mg tablet,delayed release 81 mg PO DAILY heart health 07/17/21 [History Last Taken 10/27/22 08:00] baclofen 20 mg tablet 40 mg PO TID muscle spasms 07/17/21 [History Last Taken 10/27/22 2200] calcium carbonate 500 mg-vitamin D3 5 mcg (200 unit) tablet (Calcium 500 + D) 2 tab PO BID supplement 07/17/21 [History Last Taken 10/27/22 22:00] captopril 12.5 mg tablet 3.125 mg PO DAILY PRN PRN autonomic dysreflexia 07/17 [History Last Taken 10/27/22 08:00] cholecalciferol (vitamin D3) 25 mcg (1,000 unit) capsule (Vitamin D3) 25 mcg PO DAILY supplement 07/17/21 [History Last Taken 10/27/22 08:00] docusate sodium 100 mg capsule 100 mg PO TID PRN stool softener 07/17/21 [History Last Taken 10/27/22 08:00] enoxaparin 40 mg/0.4 mL subcutaneous syringe 40 mg subcut Q12H prevent blood clots 07/17/21 [History Last Taken 10/27/22 08:00] escitalopram oxalate 20 mg tablet 20 mg PO DAILY depression 07/17/21 [History Last Taken 10/27/22 08:00] nitroglycerin 2 % transdermal ointment 1 inch transdermal PRN PRN autonomic dysreflexia 07/17/21 [History Last Taken Unknown] levetiracetam 750 mg tablet (Keppra) 750 mg PO BID seizures 09/12/22 [History Last Taken 10/27/22 22:00] methenamine hippurate 1 gram tablet (Hiprex) 1 g PO Q12H UTI prevention 09/12/22 [History Last Taken 10/27/22 22:00] nystatin 100,000 unit/gram topical powder 1 applic topical BID skin irritation 09/12/22 [History Last Taken Unknown] hydrocodone-acetaminophen 5-325mg 5mg-325mg 1 tab PO Q6H PRN PRN Pain 3 days #12 TABLETS 10/10/22 [Rx Last Taken Unknown] ciprofloxacin HCl 500 mg tablet 500 mg PO BID #14 TABLETS 10/27/22 [Rx Last Taken 10/27/22 22:00] Allergy/AdvReac Type Severity Reaction Status Date / Time No Known Allergies Allergy Verified 10/28/22 11:53 Surgical History H/O thumb surgery History of colectomy History of urethral stent S/P cervical spinal fusion Social History household members: family Smoking Status: Former smoker alcohol intake: never substance use type: does not use ROS Constitutional Constitutional: Reports chills, lethargy and poor appetite Eyes Eyes: Reports systems reviewed and no addt'l complaints, except as documented ENT HEENT: Reports systems reviewed and no addt'l complaints, except as documented Cardiovascular Cardiovascular: Reports systems reviewed and no addt'l complaints, except as documented Respiratory/Chest Respiratory/Chest: Reports systems reviewed and no addt'l complaints, except as documented Gastrointestinal Gastrointestinal: Reports bloating, nausea and vomiting Genitourinary Genitourinary: Reports abdominal discomfort, flank pain, hematuria and other Details: gross not draining well Musculoskeletal Musculoskeletal: Reports back pain, limited range of motion, muscle spasms and other Details: paraplegic has movement upper extremities but limited fine motor control Integumentary Integumentary: Reports wounds Neurologic Neurologic: Reports other Details: paraplegic as documented Psychiatric Psychiatric: Reports systems reviewed and no addt'l complaints, except as documented Endocrine Endocrinology: Reports systems reviewed and no addt'l complaints, except as documented Hematologic/Lymphatic Hematologic/Lymphatic: Reports systems reviewed and no addt'l complaints, except as documented Allergic/Immunologic Allergic/Immunologic: Reports systems reviewed and no addt'l complaints, except as documented Vital Signs Vital Signs Vital Signs: 10/29/22 19:40 10/29/22 22:25 10/29/22 22:30 Temperature 99.9 F H 100.2 F H Temperature Source Oral Oral Pulse Rate 97 Respiratory Rate 20 H Respiratory Effort Normal Respiratory Depth Normal Respiratory Pattern Normal Blood Pressure 134/82 H Blood Pressure Mean 99 Blood Pressure Source Blood Pressure Position Blood Pressure Location Pulse Ox 92 Oxygen Delivery Method Room Air Room Air 10/29/22 22:25 10/30/22 02:52 10/30/22 03:05 Temperature 100.2 F H 98.8 F Temperature Source Oral Oral Pulse Rate 97 95 Respiratory Rate 20 H 18 Respiratory Effort Normal Respiratory Depth Normal Respiratory Pattern Normal Blood Pressure 134/82 H 129/86 H Blood Pressure Mean 99 100 Blood Pressure Source Blood Pressure Position Blood Pressure Location Pulse Ox 92 94 Oxygen Delivery Method Room Air Room Air Room Air 10/30/22 02:52 10/30/22 09:44 10/30/22 15:48 Temperature 98.8 F 97.9 F 98.5 F Temperature Source Oral Oral Oral Pulse Rate 95 74 78 Respiratory Rate 18 16 16 Respiratory Effort Respiratory Depth Respiratory Pattern Blood Pressure 129/86 H 133/93 H 147/98 H Blood Pressure Mean 100 106 114 Blood Pressure Source Monitor Monitor Blood Pressure Position Semi-Fowlers Semi-Fowlers Blood Pressure Location Left Arm Left Forearm Pulse Ox 94 96 94 Oxygen Delivery Method Room Air Room Air Room Air Weight Weight: 107.048 kg Body Mass Index (BMI) 39.2 Physical Exam Const alert, oriented x3 and no apparent distress General Appearance: cooperative and comfortable HEENT normocephalic, head/scalp atraumatic, hearing grossly normal bilaterally, external ears normal and moist oral mucous membranes HEENT Narrative: Face flushed. Eyes General Eye: normal appearance of both eyes Neck supple General: trachea midline Lymph Lymphatic: no lymphedema noted Chest inspection of chest normal Chest: symmetrical chest wall rise Resp normal respiratory effort, normal air movement and no retractions Effort and Inspection: able to speak in complete sentences and symmetric chest movement Cardio regular rhythm Rate: tachycardic GI soft to palpation Palpation: soft; Negative for firm, tender or guarding Narrative: Gross draining concentrated cloudy yellow urine Bladder / Kidney Exam: catheter in place Back/Spine no CVA tenderness Neuro oriented x3 and CN's II-XII intact bilaterally Psych mental status grossly normal, thought process normal and cooperative Results Lab / Micro Data Result Diagrams: 10/30/22 06:27 10/30/22 06:27 Labs: Laboratory Results - last 24 hr 10/30/22 06:27: WBC 6.9, RBC 3.46 L, Hgb 10.1 L, Hct 30.4 L, MCV 87.9, MCH 29.2, MCHC 33.2, RDW Std Deviation 42.9, RDW Coeff of Anurag 13.3, Plt Count 193, MPV 10.1, Immature Gran % (Auto) 0.300, Neut % (Auto) 73.5 H, Lymph % (Auto) 16.9 L, [place] % (Auto) 8.2, Eos % (Auto) 0.7, Baso % (Auto) 0.4, Absolute Neuts (auto) 5.1, Absolute Lymphs (auto) 1.16, Nucleated RBC % 0 10/30/22 06:27: Sodium 140, Potassium 3.6, Chloride 109 H, Carbon Dioxide 23.0, Anion Gap 8, BUN 12, Creatinine 1.28 H, Estim Creat Clear Calc 63.61, Est GFR (MDRD) Af Amer 69, Est GFR (MDRD) Non-Af 57 L, BUN/Creatinine Ratio 9.4 L, Glucose 97, Calcium 8.5 Assessment & Plan Assessment/Plan (1) UTI (urinary tract infection): (2) COLTON (acute kidney injury): (3) Leukocytosis: (4) Paraplegia: (5) Single kidney: PLAN: Plan Continue intravenous fluid support Antibiotics and Diflucan We will plan for intervention on either cystoscopy and ureteral stent removal or cystoscopy and ureteral stent change depending on imaging to be done on 10/30 Potassium replaced today Follow a.m. labs
--- NOTE | 2022-10-30 18:31 | PN_ITS ---
Subjective Subjective Feeling much improved today. No nausea or vomiting. Reporting constipation despite the stool softeners. At home she takes MiraLAX. It has been approximately 4 days since her last bowel movement. She is also having difficulty sleeping here and is requesting melatonin. Objective Data Objective Data Vital Signs: Vital Signs Temp Pulse Resp BP Pulse Ox O2 Del Method O2 Flow Rate 98.5 F 78 16 147/98 H 94 Room Air 2 10/30/22 15:48 10/30/22 15:48 10/30/22 15:48 10/30/22 15:48 10/30/22 15:48 10/30/22 15:48 10/29/22 03:30 Oxygen Flow Rate (L/min) 2 Oxygen Delivery Method Room Air Weight: 107.048 kg Body Mass Index (BMI) 39.2 Intake & Output: Intake and Output for Last 24 Hours 10/28/22 10/29/22 10/30/22 23:59 23:59 23:59 Intake Total 1740 / 2040 4036.67 / 4036.67 1395 / 1395 Output Total 1000 / 1800 4250 / 4250 2100 / 2100 Balance 740 / 240 -213.33 / -213.33 -705 / -705 Lab / Micro Data Result Diagrams: 10/30/22 06:27 10/30/22 06:27 Labs: Laboratory Results - last 24 hr 10/30/22 06:27: WBC 6.9, RBC 3.46 L, Hgb 10.1 L, Hct 30.4 L, MCV 87.9, MCH 29.2, MCHC 33.2, RDW Std Deviation 42.9, RDW Coeff of Anurag 13.3, Plt Count 193, MPV 10.1, Immature Gran % (Auto) 0.300, Neut % (Auto) 73.5 H, Lymph % (Auto) 16.9 L, [place] % (Auto) 8.2, Eos % (Auto) 0.7, Baso % (Auto) 0.4, Absolute Neuts (auto) 5.1, Absolute Lymphs (auto) 1.16, Nucleated RBC % 0 10/30/22 06:27: Sodium 140, Potassium 3.6, Chloride 109 H, Carbon Dioxide 23.0, Anion Gap 8, BUN 12, Creatinine 1.28 H, Estim Creat Clear Calc 63.61, Est GFR (MDRD) Af Amer 69, Est GFR (MDRD) Non-Af 57 L, BUN/Creatinine Ratio 9.4 L, Glucose 97, Calcium 8.5 Physical Exam Const alert, oriented x3 and no apparent distress HEENT normocephalic, head/scalp atraumatic and hearing grossly normal bilaterally Chest inspection of chest normal Resp normal respiratory effort, normal air movement and no retractions Cardio regular rate Narrative: Urine is much more dilute and clear on gross inspection Bladder / Kidney Exam: catheter in place Back/Spine no CVA tenderness Assessment & Plan Assessment/Plan (1) UTI (urinary tract infection): (2) COLTON (acute kidney injury): (3) Leukocytosis: (4) Paraplegia: (5) Single kidney: PLAN: Plan Renal ultrasound shows very minimal hydronephrosis After discussing with mom and patient, we have agreed to proceed with cystoscopy with left ureteral stent removal tomorrow given the infection with yeast and bacteria We will plan to change the Ma catheter tomorrow We will postpone Botox, suprapubic tube and mid urethral sling insertion for when the patient is healthy We also discussed that she has stones that are forming in the kidney even after the procedure. They were visible within the calyces on ureteroscopy. We will need to visit the idea of a 24-hour urinalysis with aggressive stone prevention at some point in the near future
--- NOTE | 2022-10-30 22:16 | NURSING ---
Pt states does not feel comfortable signing surgery consent for tomorrow due to her hands being contracted. called pts mother, Sapna & received phone consent with tis nurse & CONRAD Hernandes
[2022-10-30] MEDS: Polyethylene Glycol 3350 17 GM PACKET PO (22:26)
[2022-10-30] MEDS: MELATONIN 3 MG TABLET PO (22:26)
[2022-10-30 22:46] VITALS: BP 124/88; PULSE 89; RESP 18; TEMP 37.4; O2SAT 94
[2022-10-31] VITALS (7 sets, daily range): BP systolic 109–141; BP diastolic 70–97; PULSE 63–89; RESP 16–18; TEMP 36.6–37.3; O2SAT 93–96
[2022-10-31 02:43] LABS: Internal QC Validated? YES +Cl - CLEAR BKGD; Pregnancy, Urine Negative Negative
[2022-10-31 06:13] LABS: Partial Thromboplast Time 29.7 Seconds (24.1-36.2)
[2022-10-31 06:32] LABS: Anion Gap 5 (5-15); BUN 15 mg/dL (7-18); BUN/Creat Ratio 13.5 RATIO (10-20); Calcium,Total 8.9 mg/dL (8.5-10.1); Chloride 109 mmol/L (98-107); Creatinine, Serum 1.11 mg/dL (0.55-1.02); EST Glomerular Filtration Rate 67 mL/min (>60); Est Glom Filt Rate - Afr Amer 81 mL/min (>60); Estimated Creatinine Clearance 73.35 ml/min; Glucose 96 mg/dL (74-106); Potassium 3.7 mmol/L (3.5-5.1); Sodium Level 140 mmol/L (136-145)
[2022-10-31] MEDS: Lactated Ringers 1,000 ML 100 ML IV (08:26)
--- NOTE | 2022-10-31 09:24 | OP.PCM_ITS ---
Report of Operation Date of Procedure: 10/31/22 Pre-Operative Diagnosis: left renal stones Post-Operative Diagnosis: same Surgery/Procedure Performed:: cystoscopy with left ureteral stent removal Surgeon: Fernanda Rodriguez Type of Anesthesia: Local Description of Procedure: The patient is a 21-year-old paraplegic who developed a an obstructing left ureteral calculus in her solitary left renal unit. She subsequently underwent treatment followed by a left ureteral stent insertion. She has developed a significant infection with yeast and bacteria and now presents for removal of the stent to help clear the infection. She has been on Diflucan and Cipro and is clinically significantly improved. Informed consent was obtained. The patient was taken to the operating room and placed in a supine position on the operating table. She was positioned in a dorsal lithotomy position. Her Ma catheter was removed and she was prepped and draped in usual sterile fashion. The cystoscope was inserted through the urethra under direct visualization into the urinary bladder. The left ureteral stent was visualized, grasped and removed without difficulty. A new 18 [place] Ma catheter was inserted to straight drain with 10 cc in the balloon. The patient was then taken to the recovery room in good condition. There were no complications during this procedure. Complications none Admit VTE Documentation VTE Present on Admission: No VTE Mechan Device Prophylaxis: None VTE Pharm Prophylaxis ordered?: No Reason prophylaxis not ordered:: Treatment Not Indicated
[2022-10-31] MEDS: Lubricating Jelly 60 GM Tube 30 GM (10:35)
[2022-10-31] MEDS: Nystatin Powder 15gm Bottle 1 APPLIC TOPICAL ×2 (11:07→20:09)
[2022-10-31] MEDS: Ciprofloxacin 200 MG/100 ML BAG 100 MG IV (11:07)
[2022-10-31] MEDS: Menthol/Lanolin/Calamine/Znox 113 GM Tube 1 APPLIC TOPICAL ×2 (11:07→20:08)
[2022-10-31] MEDS: Aspirin E.C. 81 MG Tablet PO (11:08)
[2022-10-31] MEDS: Escitalopram Oxalate 20 MG Tablet PO (11:08)
[2022-10-31] MEDS: levETIRAcetam 750 MG Tablet PO ×2 (11:08→20:07)
[2022-10-31] MEDS: Fluconazole 100 MG Tablet PO (11:08)
[2022-10-31] MEDS: Cholecalciferol (VIT D3) 25 MCG TABLET (1,000 UNITS) PO (11:08)
[2022-10-31] MEDS: 0.9% Saline Lock 10 ML Syringe IV ×2 (11:09→20:13)
[2022-10-31] MEDS: Polyethylene Glycol 3350 17 GM PACKET PO ×2 (13:59→20:08)
[2022-10-31] MEDS: Baclofen 10 MG Tablet 40 MG PO ×2 (14:00→20:07)
[2022-10-31] MEDS: 0.45% Normal Saline 1,000 ML 100 ML IV (15:01)
[2022-10-31] MEDS: MELATONIN 3 MG TABLET PO (20:08)
[2022-10-31] MEDS: Ciprofloxacin 500 MG Tablet PO (20:08)
[2022-11-01 01:16] VITALS: BP 116/80; PULSE 73; RESP 18; TEMP 36.6; O2SAT 94
[2022-11-01] MEDS: 0.45% Normal Saline 1,000 ML 100 ML IV (01:19)
[2022-11-01 04:42] LABS: Absolute Lymphocyte Count 1.59 X10^3/uL (0.83-4.51); Absolute Neutrophil Count 3.1 X10^3/uL (2.0-7.7); Basophil# 0.02 X10^3/uL; Basophil% 0.4 % (0-1); Eosinophils% 3.8 % (0-5); Hematocrit 30.4 % (37-47); Hemoglobin 9.6 g/dL (12.0-15.0); Lymphocyte # 1.59 X10^3/ul (0.83-4.51); Lymphocyte % 29.8 % (19-41); Mean Corp Hgb Conc 31.6 g/dL (32-36); Mean Corpuscular Hgb 27.8 pg (27.0-32.0); Mean Corpuscular Volume 88.1 fL (81-99); Mean Platelet Vol. 10.5 fl (6.2-12.0); Monocyte# 0.42 X10^3/uL; Monocyte% 7.9 % (0-10); NRBC Flagged by Analyzer 0.4 % (0-5); Neutrophil # 3.08 X10^3/uL (2.7-7.7); Neutrophil % 57.7 % (47-70); Platelet Count 196 K/mm3 (150-450); RBC Distribution Width CV 13.3 % (11.6-14.6); RBC Distribution Width SD 43.6 fl (35.1-43.9); Red Blood Count 3.45 M/mm3 (4.2-5.4); White Blood Count 5.3 K/mm3 (4.4-11.0)
[2022-11-01 05:07] LABS: Anion Gap 6 (5-15); BUN 13 mg/dL (7-18); BUN/Creat Ratio 16.6 RATIO (10-20); Calcium,Total 8.6 mg/dL (8.5-10.1); Chloride 108 mmol/L (98-107); Creatinine, Serum 0.78 mg/dL (0.55-1.02); EST Glomerular Filtration Rate 100 mL/min (>60); Est Glom Filt Rate - Afr Amer 121 mL/min (>60); Estimated Creatinine Clearance 104.39 ml/min; Glucose 93 mg/dL (74-106); Potassium 3.6 mmol/L (3.5-5.1); Sodium Level 140 mmol/L (136-145)
[2022-11-01] MEDS: Polyethylene Glycol 3350 17 GM PACKET PO (06:29)
[2022-11-01] MEDS: Baclofen 10 MG Tablet 40 MG PO (06:36)
[2022-11-01 06:39] VITALS: BP 122/82; PULSE 66; RESP 18; TEMP 36.6; O2SAT 95
[2022-11-01 06:42] VITALS: BP 122/82; PULSE 66; RESP 18; TEMP 36.6; O2SAT 95
--- NOTE | 2022-11-01 08:39 | PN_ITS ---
Subjective Subjective Feeling well overnight. Only complaint is constipation, but she is passing gas. No nausea, vomiting or other GI complaint. No abdominal or back pain. Ready to go home. Objective Data Objective Data Vital Signs: Vital Signs Temp Pulse Resp BP Pulse Ox O2 Del Method O2 Flow Rate 97.9 F 66 18 122/82 H 95 Room Air 2 11/01/22 06:42 11/01/22 06:42 11/01/22 06:42 11/01/22 06:42 11/01/22 06:42 11/01/22 07:55 11/01/22 06:42 Oxygen Flow Rate (L/min) 2 Oxygen Delivery Method Room Air Weight: 107.048 kg Body Mass Index (BMI) 39.2 Intake & Output: Intake and Output for Last 24 Hours 10/30/22 10/31/22 11/01/22 23:59 23:59 23:59 Intake Total 2591.67 / 2591.67 1783.33 / 1783.33 1000 / 1000 Output Total 2800 / 3425 3475 / 4525 1450 / 1450 Balance -208.33 / -833.33 -1691.67 / -2741.67 -450 / -450 Lab / Micro Data Result Diagrams: 11/01/22 04:05 11/01/22 04:05 Labs: Laboratory Results - last 24 hr 11/01/22 04:05: WBC 5.3, RBC 3.45 L, Hgb 9.6 L, Hct 30.4 L, MCV 88.1, MCH 27.8, MCHC 31.6 L, RDW Std Deviation 43.6, RDW Coeff of Anurag 13.3, Plt Count 196, MPV 10.5, Immature Gran % (Auto) 0.400, Neut % (Auto) 57.7, Lymph % (Auto) 29.8, [place] % (Auto) 7.9, Eos % (Auto) 3.8, Baso % (Auto) 0.4, Absolute Neuts (auto) 3.1, Absolute Lymphs (auto) 1.59, Nucleated RBC % 0.4 11/01/22 04:05: Sodium 140, Potassium 3.6, Chloride 108 H, Carbon Dioxide 26.0, Anion Gap 6, BUN 13, Creatinine 0.78, Estim Creat Clear Calc 104.39, Est GFR (MDRD) Af Amer 121, Est GFR (MDRD) Non-Af 100, BUN/Creatinine Ratio 16.6, Glucose 93, Calcium 8.6 Physical Exam Const alert, oriented x3 and no apparent distress General Appearance: cooperative and comfortable Resp normal respiratory effort, normal air movement, no retractions and no use of accessory muscles Cardio regular rate GI soft to palpation and non-tender Narrative: urine is pale and clear in the gross bag. Assessment & Plan Assessment/Plan (1) UTI (urinary tract infection): (2) COLTON (acute kidney injury): (3) Paraplegia: (4) Single kidney: PLAN: Plan continue miralax and fluids home today plan for rescheduling cystoscopy with sling and botox in the near future
--- NOTE | 2022-11-01 08:42 | DCINST_ITS ---
Discharge Instructions Diet Discharge Diet: No restrictions Activity Discharge Activity: Return to Normal Activity Dressing / Incision Call your doctor if you observe: Fever of 101 or Higher and Inability to urinate Follow Up Care Please Follow Up With: Fernanda Rodriguez MD When: call office for instructions Test Results: Test results from this visit will be discussed in further detail at your follow- up appointment, if applicable. Discharge Plan Admission Admit Date/Time: 10/28/22 17:00 Attending Provider: Fernanda Rodriguez Primary Care Provider: Edgard Amato Discharge Orders/Prescriptions Prescriptions: New fluconazole 100 mg Tablet 100 mg PO DAILY 3 Days Qty: 3 0RF polyethylene glycol 3350 17 gram Powder In Packet 17 g PO TID Qty: 1 0RF Rx Instructions: 1 cap full three times a day as needed for constipation, it is OTC Continued aspirin 81 mg Tablet,Delayed Release (Dr/Ec) 81 mg PO DAILY baclofen 20 mg Tablet 40 mg PO TID ascorbic acid (vitamin C) 500 mg Tablet 500 mg PO BID nitroglycerin 2 % Ointment 1 inch TRANSDERMAL PRN PRN (Reason: autonomic dysreflexia) cholecalciferol (vitamin D3) [Vitamin D3] 25 mcg (1,000 unit) Capsule 25 mcg PO DAILY [id number]-o-wrcmshvvnnpcl Tablet 1 tab PO DAILY docusate sodium 100 mg Capsule 100 mg PO TID PRN (Reason: stool softener) escitalopram oxalate 20 mg Tablet 20 mg PO DAILY calcium carbonate-vitamin D3 [Calcium 500 + D] 500 mg(1,250mg) -200 unit Tablet 2 tab PO BID methenamine hippurate [Hiprex] 1 gram tablet 1 g PO Q12H Rx Instructions: can be continued indefinitely. For UTI prevention. levetiracetam [Keppra] 750 mg tablet 750 mg PO BID nystatin 100,000 unit/gram powder 1 applic topical BID hydrocodone-acetaminophen 5-325 mg tablet 1 tab PO Q6H PRN PRN (Reason: Pain) 3 Days Qty: 12 0RF ciprofloxacin HCl 500 mg tablet 500 mg PO BID Qty: 8 0RF Discontinued captopril 12.5 mg Tablet 3.125 mg PO DAILY PRN PRN (Reason: autonomic dysreflexia) enoxaparin 40 mg/0.4 mL Syringe 40 mg SUBCUT Q12H Referrals / Follow Up: Edgard Amato MD [Primary Care Provider] - Disposition Disposition (needs filled in before D/C Order can be placed): Home, Self Care
--- NOTE | 2022-11-01 08:48 | DS.PCM_ITS ---
Providers Date of Admission: 10/28/22 Primary Care Physician: Dr. Edgard Amato MD Consultations 10/28/22 16:59 Consult: Onc/Wound/clerk of superior court Routine Comment: Reason for Consult:: colostomy/ right groin wound/sacral wound pt is paraplegia Reason For Visit: UTI / ACUTE RENAL INSUFFICIENCY Diagnosis Discharge Diagnosis (1) UTI (urinary tract infection): Status: Acute Code(s): N39.0 - Urinary tract infection, site not specified (2) COLTON (acute kidney injury): Status: Acute Code(s): N17.9 - Acute kidney failure, unspecified (3) Paraplegia: Status: Acute Code(s): G82.20 - Paraplegia, unspecified (4) Single kidney: Status: Acute Code(s): Z90.5 - Acquired absence of kidney Plan continue miralax and fluids home today plan for rescheduling cystoscopy with sling and botox in the near future Medications at Discharge Home Medications [id number] 1 tab PO DAILY bladder spasms 07/17/21 ascorbic acid (vitamin C) 500 mg tablet 500 mg PO BID supplement 07/17/21 aspirin 81 mg tablet,delayed release 81 mg PO DAILY heart health 07/17/21 baclofen 20 mg tablet 40 mg PO TID muscle spasms 07/17/21 calcium carbonate 500 mg-vitamin D3 5 mcg (200 unit) tablet (Calcium 500 + D) 2 tab PO BID supplement 07/17/21 cholecalciferol (vitamin D3) 25 mcg (1,000 unit) capsule (Vitamin D3) 25 mcg PO DAILY supplement 07/17/21 docusate sodium 100 mg capsule 100 mg PO TID PRN stool softener 07/17/21 escitalopram oxalate 20 mg tablet 20 mg PO DAILY depression 07/17/21 nitroglycerin 2 % transdermal ointment 1 inch transdermal PRN PRN autonomic dysreflexia 07/17/21 levetiracetam 750 mg tablet (Keppra) 750 mg PO BID seizures 09/12/22 methenamine hippurate 1 gram tablet (Hiprex) 1 g PO Q12H UTI prevention 09/12/22 nystatin 100,000 unit/gram topical powder 1 applic topical BID skin irritation 09/12/22 hydrocodone-acetaminophen 5-325mg 5mg-325mg 1 tab PO Q6H PRN PRN Pain 3 days #12 TABLETS 10/10/22 ciprofloxacin HCl 500 mg tablet 500 mg PO BID #8 TABLETS 11/01/22 fluconazole 100 mg tablet 100 mg PO DAILY 3 days #3 tabs 11/01/22 polyethylene glycol 3350 17 gram oral powder packet 17 g PO TID #1 ea 11/01/22 Hospital Course Operations - (cystoscopy with ureteral stent removal) Procedures None Summary of Care Provided Hospital Course: The patient is a 21-year-old female with a solitary left kidney who is parapl egic and having issues with her chronic Ma catheter. She had previously undergone a left ureteroscopic stone removal with left ureteral stent insertion. She presented to the emergency room with difficulty in Ma catheter drainage. She was sent home. The next day she began to develop fevers, nausea and not feeling well. She was sent to the emergency room and found to have acute renal insufficiency and her previously sent urine culture came back positive for yeast. She was admitted for supportive care and intravenous antibiotics. She did well and had resolution of her acute renal insufficiency, leukocytosis, nausea and vomiting and fever. She was taken for cystoscopy and left ureteral stent removal on 10/31/2022 and was observed overnight to ensure that her renal insufficiency did not return. Her labs were normal and she was discharged home on 11/01/2022. Weight / BMI Weight Weight: 107.048 kg Body Mass Index (BMI) 39.2 ABG / Lab / Microbiology Data Result Diagrams: 11/01/22 04:05 11/01/22 04:05 Laboratory: Laboratory Results - last 24 hr 11/01/22 04:05: WBC 5.3, RBC 3.45 L, Hgb 9.6 L, Hct 30.4 L, MCV 88.1, MCH 27.8, MCHC 31.6 L, RDW Std Deviation 43.6, RDW Coeff of Anurag 13.3, Plt Count 196, MPV 10.5, Immature Gran % (Auto) 0.400, Neut % (Auto) 57.7, Lymph % (Auto) 29.8, [place] % (Auto) 7.9, Eos % (Auto) 3.8, Baso % (Auto) 0.4, Absolute Neuts (auto) 3.1, Absolute Lymphs (auto) 1.59, Nucleated RBC % 0.4 11/01/22 04:05: Sodium 140, Potassium 3.6, Chloride 108 H, Carbon Dioxide 26.0, Anion Gap 6, BUN 13, Creatinine 0.78, Estim Creat Clear Calc 104.39, Est GFR (MDRD) Af Amer 121, Est GFR (MDRD) Non-Af 100, BUN/Creatinine Ratio 16.6, Glucose 93, Calcium 8.6 D/C Instructions Discharge Diet: No restrictions Call your doctor if you observe: Fever of 101 or Higher and Inability to urinate Please Follow Up With: Fernanda Rodriguez MD When: call office for instructions Meaningful Use Info Meaningful Use Diagnoses (Choose all that apply): None applicable Discharge Plan Admission Admit Date/Time: 10/28/22 17:00 Attending Provider: Fernanda Rodriguez Primary Care Provider: Edgard Amato Discharge Orders/Prescriptions Prescriptions: New fluconazole 100 mg Tablet 100 mg PO DAILY 3 Days Qty: 3 0RF polyethylene glycol 3350 17 gram Powder In Packet 17 g PO TID Qty: 1 0RF Rx Instructions: 1 cap full three times a day as needed for constipation, it is OTC Continued aspirin 81 mg Tablet,Delayed Release (Dr/Ec) 81 mg PO DAILY baclofen 20 mg Tablet 40 mg PO TID ascorbic acid (vitamin C) 500 mg Tablet 500 mg PO BID nitroglycerin 2 % Ointment 1 inch TRANSDERMAL PRN PRN (Reason: autonomic dysreflexia) cholecalciferol (vitamin D3) [Vitamin D3] 25 mcg (1,000 unit) Capsule 25 mcg PO DAILY [id number]-[id number] Tablet 1 tab PO DAILY docusate sodium 100 mg Capsule 100 mg PO TID PRN (Reason: stool softener) escitalopram oxalate 20 mg Tablet 20 mg PO DAILY calcium carbonate-vitamin D3 [Calcium 500 + D] 500 mg(1,250mg) -200 unit Tablet 2 tab PO BID methenamine hippurate [Hiprex] 1 gram tablet 1 g PO Q12H Rx Instructions: can be continued indefinitely. For UTI prevention. levetiracetam [Keppra] 750 mg tablet 750 mg PO BID nystatin 100,000 unit/gram powder 1 applic topical BID hydrocodone-acetaminophen 5-325 mg tablet 1 tab PO Q6H PRN PRN (Reason: Pain) 3 Days Qty: 12 0RF ciprofloxacin HCl 500 mg tablet 500 mg PO BID Qty: 8 0RF Discontinued captopril 12.5 mg Tablet 3.125 mg PO DAILY PRN PRN (Reason: autonomic dysreflexia) enoxaparin 40 mg/0.4 mL Syringe 40 mg SUBCUT Q12H Referrals / Follow Up: Edgard Amato MD [Primary Care Provider] - Disposition Disposition (needs filled in before D/C Order can be placed): Home, Self Care
[2022-11-01 09:30] VITALS: BP 118/80; PULSE 63; RESP 18; TEMP 36.6; O2SAT 94
[2022-11-01] MEDS: Menthol/Lanolin/Calamine/Znox 113 GM Tube 1 APPLIC TOPICAL (09:35)
[2022-11-01] MEDS: Nystatin Powder 15gm Bottle 1 APPLIC TOPICAL (09:35)
[2022-11-01] MEDS: Cholecalciferol (VIT D3) 25 MCG TABLET (1,000 UNITS) PO (09:36)
[2022-11-01] MEDS: Fluconazole 100 MG Tablet PO (09:36)
[2022-11-01] MEDS: Ciprofloxacin 500 MG Tablet PO (09:36)
[2022-11-01] MEDS: levETIRAcetam 750 MG Tablet PO (09:36)
[2022-11-01] MEDS: Aspirin E.C. 81 MG Tablet PO (09:36)
[2022-11-01] MEDS: Escitalopram Oxalate 20 MG Tablet PO (09:36)
--- NOTE | 2022-11-01 09:45 | CASEMGMT ---
Addendum entered by Gina Huber 11/01/22 09:48: RN CM in to pt room, pt sitting up in chair and nurse feeding breakfast. PtPt is aware that [facility] will be in touch and resume care. denies further homegoing needs. Original Note: Pt to dc today. Sent dc instructions and summary to [facility] via [employer].
--- NOTE | 2022-11-01 12:54 | PHA.DC.MR ---
Pharmacy Service has performed discharge medication reconciliation for this patient. The patient's discharge medication list was reviewed for discrepancies and discrepancies were resolved. Home Medications [id number] 1 tab PO DAILY bladder spasms 07/17/21 ascorbic acid (vitamin C) 500 mg tablet 500 mg PO BID supplement 07/17/21 aspirin 81 mg tablet,delayed release 81 mg PO DAILY heart health 07/17/21 baclofen 20 mg tablet 40 mg PO TID muscle spasms 07/17/21 calcium carbonate 500 mg-vitamin D3 5 mcg (200 unit) tablet (Calcium 500 + D) 2 tab PO BID supplement 07/17/21 cholecalciferol (vitamin D3) 25 mcg (1,000 unit) capsule (Vitamin D3) 25 mcg PO DAILY supplement 07/17/21 docusate sodium 100 mg capsule 100 mg PO TID PRN stool softener 07/17/21 escitalopram oxalate 20 mg tablet 20 mg PO DAILY depression 07/17/21 nitroglycerin 2 % transdermal ointment 1 inch transdermal PRN PRN autonomic dysreflexia 07/17/21 levetiracetam 750 mg tablet (Keppra) 750 mg PO BID seizures 09/12/22 methenamine hippurate 1 gram tablet (Hiprex) 1 g PO Q12H UTI prevention 09/12/22 nystatin 100,000 unit/gram topical powder 1 applic topical BID skin irritation 09/12/22 hydrocodone-acetaminophen 5-325mg 5mg-325mg 1 tab PO Q6H PRN PRN Pain 3 days #12 TABLETS 10/10/22 ciprofloxacin HCl 500 mg tablet 500 mg PO BID #8 TABLETS 11/01/22 fluconazole 100 mg tablet 100 mg PO DAILY 3 days #3 tabs 11/01/22 polyethylene glycol 3350 17 gram oral powder packet 17 g PO TID #1 ea 11/01/22
== END 2022-11-01 12:40 | disposition home health service (06) | DRG 463 ==
LOC: ED 15:52 → MS3 18:54
PROVIDERS: Anesthesiology; Admitting Provider Urology; Emergency Provider Emergency Medicine; PCP Pediatrics; Visit Provider Urology
PROC: 0TP98DZ Removal of Intraluminal Device from Ureter, Via Natural or Artificial Opening Endoscopic (ICD-10-PCS; principal; 2022-10-31 10:50)
DX: N13.6 Pyonephrosis (principal); N17.9 Acute kidney failure, unspecified; G82.20 Paraplegia, unspecified; Q60.0 Renal agenesis, unilateral; B37.9 Candidiasis, unspecified; T83.511A Infection and inflammatory reaction due to indwelling urethral catheter, initial encounter; Z93.3 Colostomy status; N26.1 Atrophy of kidney (terminal); E66.9 Obesity, unspecified; Z79.2 Long term (current) use of antibiotics; Z79.82 Long term (current) use of aspirin; Z79.899 Other long term (current) drug therapy; Z87.891 Personal history of nicotine dependence
CPT/HCPCS: 36415; 51702; 74176; 76770; 80048; 80053; 81001; 81025; 85025; 85730; 87077; 87086; 87088; 87186; 97802; 99285; J7030; J7120; A4216; J0744; J2405

== ENCOUNTER 2022-11-16 15:47 | Emergency (ER) | payer MEDICAID, SELFPAY ==
[2022-11-16 15:50] VITALS: BP 99/57; PULSE 66; RESP 16; TEMP 36.7; O2SAT 98; BMI 38.9
--- NOTE | 2022-11-16 16:03 | EDS_ITS ---
HPI History of Present Illness Chief Complaint: Gross C/O Informant: patient Narrative Narrative: 14-year-old female presenting with Gross catheter problems. She states her catheter has not been draining today and she feels that it may be dislodged. She states the urine bag was emptied and after that it has not been draining as well. Denies any other complaints. Denies fever. Recent exposure to influenza. She denies fever, body aches, cough. She is unsure when this Gross catheter was placed. She has had the catheter for over a year. 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 Depression Double uterus Excessive bleeding Former smoker Indwelling urethral catheter present Neck fracture New onset seizure Open wound Paraplegic spinal paralysis Seizures Single kidney Ureteral calculus Urinary tract infection Wounds, multiple Home Medications [id number] 1 tab PO DAILY bladder spasms 07/17/21 [History Last Taken 10/27/22 08:00] ascorbic acid (vitamin C) 500 mg tablet 500 mg PO BID supplement 07/17/21 [History Last Taken 10/27/22 22:00] aspirin 81 mg tablet,delayed release 81 mg PO DAILY heart health 07/17/21 [History Last Taken 10/27/22 08:00] baclofen 20 mg tablet 40 mg PO TID muscle spasms 07/17/21 [History Last Taken 10/27/22 2200] calcium carbonate 500 mg-vitamin D3 5 mcg (200 unit) tablet (Calcium 500 + D) 2 tab PO BID supplement 07/17/21 [History Last Taken 10/27/22 22:00] cholecalciferol (vitamin D3) 25 mcg (1,000 unit) capsule (Vitamin D3) 25 mcg PO DAILY supplement 07/17/21 [History Last Taken 10/27/22 08:00] docusate sodium 100 mg capsule 100 mg PO TID PRN stool softener 07/17/21 [History Last Taken 10/27/22 08:00] escitalopram oxalate 20 mg tablet 20 mg PO DAILY depression 07/17/21 [History [place] st Taken 10/27/22 08:00] nitroglycerin 2 % transdermal ointment 1 inch transdermal PRN PRN autonomic dysreflexia 07/17/21 [History Last Taken Unknown] levetiracetam 750 mg tablet (Keppra) 750 mg PO BID seizures 09/12/22 [History Last Taken 10/27/22 22:00] methenamine hippurate 1 gram tablet (Hiprex) 1 g PO Q12H UTI prevention 09/12/22 [History Last Taken 10/27/22 22:00] nystatin 100,000 unit/gram topical powder 1 applic topical BID skin irritation 09/12/22 [History Last Taken Unknown] hydrocodone-acetaminophen 5-325mg 5mg-325mg 1 tab PO Q6H PRN PRN Pain 3 days #12 TABLETS 10/10/22 [Rx Last Taken Unknown] ciprofloxacin HCl 500 mg tablet 500 mg PO BID #8 TABLETS 11/01/22 [Rx Last Taken Unknown] fluconazole 100 mg tablet 100 mg PO DAILY 3 days #3 tabs 11/01/22 [Rx Last Taken Unknown] polyethylene glycol 3350 17 gram oral powder packet 17 g PO TID #1 ea 11/01/22 [Rx Last Taken Unknown] Allergy/AdvReac Type Severity Reaction Status Date / Time No Known Allergies Allergy Verified 11/16/22 15:53 Surgical History H/O thumb surgery History of colectomy History of urethral stent S/P cervical spinal fusion Social History household members: family Smoking Status: Former smoker alcohol intake: never substance use type: does not use ROS ROS ED Constitutional Constitutional ED: Denies chills or fever(s) Eyes Eyes: Denies change in vision ENT ENT ED: Denies rhinorrhea or sore throat Cardiovascular Cardiovascular: Denies chest pain or palpitations Respiratory/Chest Respiratory/Chest: Denies cough or dyspnea Gastrointestinal Gastrointestinal: Denies abdominal pain, diarrhea, nausea or vomiting Genitourinary Genitourinary ED: Reports other Details: gross catheter not draining ; Denies dysuria Musculoskeletal Musculoskeletal: Denies myalgias Integumentary Denies rash Neurologic Neurologic: Denies headache(s) Psychiatric Psychiatric: Denies suicidal thoughts EXAM Physical Exam Const Vital Signs: 11/16/22 15:50 Temperature 98.1 F Temperature Source Oral Pulse Rate 66 Respiratory Rate 16 Blood Pressure 99/57 L Blood Pressure Mean 71 Pulse Ox 98 Positive well nourished and well developed General Appearance ED: well developed HEENT Reports normocephalic and head/scalp atraumatic Eyes PERRL and EOMs intact bilaterally Neck supple General: Negative for tenderness Chest Wall inspection of chest normal Resp normal respiratory effort and clear to auscultation bilaterally Cardio regular rate and regular rhythm GI non-tender and non-distended Palpation: soft; Negative for guarding or rebound tenderness present no CVA tenderness Extremity normal to inspection Neuro oriented x3 Sensorium / Orientation: alert Psych mental status grossly normal Skin Skin Narrative: chronic wounds MDM MDM MDM Narrative Medical decision making narrative: Gross catheter was replaced without difficulty. Patient has no complaints. She will be discharged to follow-up with her primary care physician as needed. Advised return to ED for worsening complaints. Discharge Plan Triage Chief Complaint: Gross C/O ED Provider: Rosa Isela Petersen Dx/Rx/DC Orders Clinical Impression: Encounter for Gross catheter replacement Instructions: ED Gross Catheter, Care Prescriptions: No Action aspirin 81 mg Tablet,Delayed Release (Dr/Ec) 81 mg PO DAILY baclofen 20 mg Tablet 40 mg PO TID ascorbic acid (vitamin C) 500 mg Tablet 500 mg PO BID nitroglycerin 2 % Ointment 1 inch TRANSDERMAL PRN PRN (Reason: autonomic dysreflexia) cholecalciferol (vitamin D3) [Vitamin D3] 25 mcg (1,000 unit) Capsule 25 mcg PO DAILY [id number] Tablet 1 tab PO DAILY docusate sodium 100 mg Capsule 100 mg PO TID PRN (Reason: stool softener) escitalopram oxalate 20 mg Tablet 20 mg PO DAILY calcium carbonate-vitamin D3 [Calcium 500 + D] 500 mg(1,250mg) -200 unit Tablet 2 tab PO BID methenamine hippurate [Hiprex] 1 gram tablet 1 g PO Q12H Rx Instructions: can be continued indefinitely. For UTI prevention. levetiracetam [Keppra] 750 mg tablet 750 mg PO BID nystatin 100,000 unit/gram powder 1 applic topical BID hydrocodone-acetaminophen 5-325 mg tablet 1 tab PO Q6H PRN PRN (Reason: Pain) 3 Days Qty: 12 0RF fluconazole 100 mg Tablet 100 mg PO DAILY 3 Days Qty: 3 0RF polyethylene glycol 3350 17 gram Powder In Packet 17 g PO TID Qty: 1 0RF Rx Instructions: 1 cap full three times a day as needed for constipation, it is OTC ciprofloxacin HCl 500 mg tablet 500 mg PO BID Qty: 8 0RF Primary Care Provider: Edgard Amato Referrals: Edgard Amato MD [Primary Care Provider] - Disposition Disposition: Home, Self Care
[2022-11-16 16:50] VITALS: BP 115/76; PULSE 62; RESP 16; O2SAT 95
--- NOTE | 2022-11-16 16:50 | ED.RN ---
[facility] CALL[facility] FOR RIDE BACK TO [facility]. CALLED AT 1647 WITH AN ETA OF 20 MIN
== END 2022-11-16 17:28 | disposition home or self-care (01) ==
PROVIDERS: Emergency Provider Emergency Medicine; PCP Pediatrics; Visit Provider Emergency Medicine
DX: T83.098A Other mechanical complication of other urinary catheter, initial encounter (principal); Z87.891 Personal history of nicotine dependence; X58.XXXA Exposure to other specified factors, initial encounter
CPT/HCPCS: 51702; 99285

== ENCOUNTER 2023-02-20 07:02 | Day surgery (SDC) | payer MEDICAID, SELFPAY ==
[2023-02-05 17:39] LABS: Hematocrit 40.7 % (37-47); Mean Corp Hgb Conc 31.9 g/dL (32-36); Mean Corpuscular Hgb 28.8 pg (27.0-32.0); Mean Platelet Vol. 10.6 fl (6.2-12.0); Platelet Count 280 K/mm3 (150-450); RBC Distribution Width CV 14.1 % (11.6-14.6); RBC Distribution Width SD 46.8 fl (35.1-43.9); Red Blood Count 4.52 M/mm3 (4.2-5.4); White Blood Count 7.4 K/mm3 (4.4-11.0)
[2023-02-05 18:04] LABS: Anion Gap 7 (5-15); BUN 21 mg/dL (7-18); BUN/Creat Ratio 22.4 RATIO (10-20); Calcium,Total 9.5 mg/dL (8.5-10.1); Chloride 109 mmol/L (98-107); Creatinine, Serum 0.94 mg/dL (0.55-1.02); EST Glomerular Filtration Rate 81 mL/min (>60); Est Glom Filt Rate - Afr Amer 98 mL/min (>60); Glucose 88 mg/dL (74-106); Potassium 3.8 mmol/L (3.5-5.1); Sodium Level 141 mmol/L (136-145)
[2023-02-20 07:38] LABS: Internal QC Validated? YES +Cl - CLEAR BKGD
[2023-02-20 07:39] LABS: Pregnancy, Urine Negative Negative
[2023-02-20] MEDS: Lactated Ringers 1,000 ML 15 ML IV ×2 (08:00→10:08)
[2023-02-20 08:04] VITALS: BP 117/68; PULSE 100; RESP 18; TEMP 37.1; O2SAT 99; BMI 37.4
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
--- NOTE | 2023-02-20 08:48 | DCINST_ITS ---
Discharge Instructions Diet Discharge Diet: No restrictions Activity Discharge Activity: Return to Normal Activity Dressing / Incision Call your doctor if your incision/area has: Continuous Slow Oozing, Sudden Increased Bleeding, Increased Pain/ Swelling, Increased Redness, Foul Smelling Discharge and Swelling at the incision site Call your doctor if you observe: Fever of 101 or Higher and Inability to have a bowel movement Cleanse incision/area with: Keep Dressing Clean & Dry Follow Up Care Please Follow Up With: Fernanda Rodriguez MD When: follow up in the office in 4 weeks for suprapubic tube change. Test Results: Test results from this visit will be discussed in further detail at your follow- up appointment, if applicable. Discharge Plan Admission Attending Provider: Fernanda Rodriguez Primary Care Provider: Edgard Amato Discharge Orders/Prescriptions Prescriptions: New oxycodone-acetaminophen [Percocet] 5-325 mg tablet 1 tab PO Q8H PRN (Reason: pain) 3 Days Qty: 10 0RF cephalexin [cephalexin] 500 mg capsule 500 mg PO Q12 3 Days Qty: 6 0RF Continued aspirin 81 mg Tablet,Delayed Release (Dr/Ec) 81 mg PO DAILY baclofen 20 mg Tablet 40 mg PO BID nitroglycerin 2 % Ointment 1 inch TRANSDERMAL PRN PRN (Reason: autonomic dysreflexia) cholecalciferol (vitamin D3) [Vitamin D3] 25 mcg (1,000 unit) Capsule 25 mcg PO DAILY docusate sodium 100 mg Capsule 100 mg PO TID PRN (Reason: stool softener) escitalopram oxalate 20 mg Tablet 20 mg PO DAILY methenamine hippurate [Hiprex] 1 gram tablet 1 g PO Q12H Rx Instructions: can be continued indefinitely. For UTI prevention. nystatin 100,000 unit/gram powder 1 applic topical BID enoxaparin 40 mg/0.4 mL syringe 40 mg subcut BID Label Comments: INJECT 0.4 ML SUBCUTANEOUSLY EVERY 12 HOURS polyethylene glycol 3350 17 gram powder in packet 17 g PO PRN PRN (Reason: STOOL SOFTENER) Rx Instructions: 1 cap full three times a day as needed for constipation, it is OTC Referrals / Follow Up: Edgard Amato MD [Primary Care Provider] - Disposition Disposition (needs filled in before D/C Order can be placed): Home, Self Care
[2023-02-20] MEDS: Cefazolin 2 GM in 0.9% Normal Saline 100 ML IV (09:05)
[2023-02-20] MEDS: Botulinum Toxin A 100 Units Vial IJ (09:16)
[2023-02-20] MEDS: 0.9% Normal Saline (Pres. free 10 ML Vial ×2 (09:16→09:17)
[2023-02-20] MEDS: Lidocaine 1% /Epi 1:100 (20ml) 20 ML Vial (09:20)
[2023-02-20 09:57] VITALS: BP 117/68; BP 134/68; PULSE 122; RESP 22; TEMP 36.9; O2SAT 94
[2023-02-20 10:00] VITALS: BP 117/68; BP 118/47; PULSE 115; RESP 18; O2SAT 93
[2023-02-20 10:15] VITALS: BP 117/68; BP 117/71; PULSE 106; RESP 18; O2SAT 95
[2023-02-20 10:30] VITALS: BP 117/68; BP 120/67; PULSE 99; RESP 18; TEMP 36.9; O2SAT 94
[2023-02-20 10:50] VITALS: BP 117/68; BP 118/68; PULSE 98; RESP 18; TEMP 36.6; O2SAT 96
== END 2023-02-20 11:25 | disposition home or self-care (01) ==
LOC: SDC 07:06 → AC 07:07
PROVIDERS: Anesthesiology; PCP Pediatrics; Referring Provider Urology; Visit Provider Urology
PROC: 3E0K8GC Introduction of Other Therapeutic Substance into Genitourinary Tract, Via Natural or Artificial Opening Endoscopic (ICD-10-PCS; CPT 52287; principal; 2023-02-20 08:10)
PROC: 0T9B40Z Drainage of Bladder with Drainage Device, Percutaneous Endoscopic Approach (ICD-10-PCS; CPT 52005; 2023-02-20 08:10)
DX: N31.9 Neuromuscular dysfunction of bladder, unspecified (principal); G82.20 Paraplegia, unspecified; Z93.3 Colostomy status; N21.0 Calculus in bladder; R33.9 Retention of urine, unspecified; I10 Essential (primary) hypertension; Z79.82 Long term (current) use of aspirin; Z96.0 Presence of urogenital implants; Z87.891 Personal history of nicotine dependence; Q60.0 Renal agenesis, unilateral
CPT/HCPCS: 52287; 51102; 00910; 36415; 80048; 81025; 85027; J7120; J0585; J2405; J3490

== ENCOUNTER 2023-08-11 13:21 | Emergency (ER) | payer MEDICAID, SELFPAY ==
[2023-08-11 13:24] VITALS: BP 105/46; PULSE 82; RESP 14; TEMP 36.4; O2SAT 96; BMI 38.0
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
--- NOTE | 2023-08-11 15:11 | CT_ITS ---
INDICATION: suprapubic catheter placement EXAMINATION: CT ABDOMEN AND PELVIS WITHOUT CONTRAST TECHNIQUE: Helically acquired images were obtained of the abdomen and pelvis without oral or IV contrast. A radiation dose optimization technique was used for this scan. IV Contrast dosage and agent: None. Oral contrast: None. RADIATION DOSAGE (If Supplied By Facility): CTDIvol = ( 15.97 ) mGy, DLP = ( 1493.50 ) mGycm COMPARISON: Prior examination of 10/27/2022. FINDINGS: LOWER CHEST: Atelectatic changes or scarring unchanged. No cardiomegaly or pericardial effusion. LIVER: Homogeneous. No focal mass. GALLBLADDER AND BILIARY TREE: No calcified gallstones. No gallbladder distension or wall edema. No intra- or extrahepatic biliary ductal dilation. PANCREAS: No focal cystic or solid mass. SPLEEN: Normal size without focal cystic or solid mass. ADRENAL GLANDS: No nodules. KIDNEYS AND URETERS: Absent or severely atrophic right kidney. Small density is seen in the right paraspinal region could represent renal remnant. Faint calcifications just tiny stones in the lower pole of the left kidney. No evidence of left hydronephrosis at this time. PERITONEUM: No ascites or free air. No other fluid collection. BOWEL: The appendix is not visualized. Normal in caliber small bowel loops. Fecal retention. Left-sided colostomy is again seen. No evidence of obstruction. Surgical sutures in the proximal sigmoid colon. LYMPH NODES: No enlarged mesenteric or retroperitoneal lymph nodes. VESSELS: Aorta is non-dilated. URINARY BLADDER: Suprapubic Ma catheter in the bladder. The bladder is not distended. Gas in the bladder presumably secondary to catheterization. REPRODUCTIVE ORGANS: Didelphys uterus is again seen unchanged in appearance since prior exam. No free fluid. No new pelvic mass. ABDOMINAL WALL: No discrete abdominal or pelvic wall hernia. BONES: No lytic or blastic abnormality. CT/Abdomen/Pelvis without Cont IMPRESSION: Stable left lower colostomy without evidence of obstruction. Suprapubic bladder catheter with thickening of the bladder wall and pockets of air likely due to underdistention. Cystitis cannot be excluded. Otherwise no focal acute inflammatory process. Additional nonacute findings unchanged. Electronically Signed: Pj Cadet MD at 16:40 EDT ,
== END 2023-08-11 17:38 | disposition home or self-care (01) ==
PROVIDERS: Emergency Provider Emergency Medicine; PCP Pediatrics; Visit Provider Emergency Medicine
DX: T85.618A Breakdown (mechanical) of other specified internal prosthetic devices, implants and grafts, initial encounter (principal); N32.89 Other specified disorders of bladder; Z87.891 Personal history of nicotine dependence; N31.9 Neuromuscular dysfunction of bladder, unspecified; Y82.9 Unspecified medical devices associated with adverse incidents
CPT/HCPCS: 74176; 87077; 87086; 87088; 87186; 99284

== ENCOUNTER 2023-08-22 00:02 | Emergency (ER) | payer MEDICAID, SELFPAY ==
[2023-08-22 00:05] VITALS: BP 109/64; PULSE 90; RESP 18; TEMP 36.8; O2SAT 97; BMI 38.9
--- NOTE | 2023-08-22 01:08 | CT_ITS ---
INDICATION: Pain EXAMINATION: CT ABDOMEN AND PELVIS WITH CONTRAST - CT Abdomen And Pelvis W/ Contrast Injection TECHNIQUE: Helically acquired images were obtained of the abdomen and pelvis following IV contrast. A radiation dose optimization technique was used for this scan. IV Contrast dosage and agent: 100 mL Isovue-370 Oral contrast: None. COMPARISON: August 11, 2023. FINDINGS: LOWER CHEST: Scattered basilar atelectasis. No effusion or consolidation. No cardiomegaly or pericardial effusion. LIVER: Homogeneous. No focal mass. GALLBLADDER AND BILIARY TREE: No calcified gallstones. No gallbladder distension or wall edema. No intra- or extrahepatic biliary ductal dilation. PANCREAS: No focal cystic or solid mass. SPLEEN: Normal size without focal cystic or solid mass. ADRENAL GLANDS: No nodules. KIDNEYS AND URETERS: Absent right kidney. Normal cortical enhancement. 2 mm nonobstructive left renal stone. No hydronephrosis. Minimal perinephric stranding.. No hydronephrosis. PERITONEUM: No ascites or free air. No other fluid collection. BOWEL: No acute gastric finding. No small bowel distention or focal wall thickening. Normal appendix. Left anterior pelvic in colostomy without obstruction or inflammation. Unremarkable Miriam pouch. . LYMPH NODES: No enlarged mesenteric or retroperitoneal lymph nodes. VESSELS: Aorta is non-dilated. URINARY BLADDER: Bladder is decompressed around percutaneous cystostomy with mild surrounding inflammatory stranding. REPRODUCTIVE ORGANS: Bicornuate uterus. Unremarkable left ovary. Dominant right ovarian 1.6 cm follicle.. ABDOMINAL WALL: No discrete abdominal or pelvic wall hernia. BONES: No lytic or blastic abnormality. CT/Abdomen/Pelvis W IV Cont ONLY IMPRESSION: [Percutaneous cystostomy with inflammation surrounding a decompressed bladder. Correlate with urine for evidence of cystitis. Right ovarian 1.6 cm dominant follicle. Bicornuate uterus. Absent right kidney. Intact left anterior pelvic and colostomy without obstruction or inflammation. 2 mm nonobstructive left renal stone Electronically Signed: Alexandre Danielle MD at 2:34 EDT ,
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
[2023-08-22 01:48] LABS: Absolute Lymphocyte Count 1.29 X10^3/uL (0.83-4.51); Absolute Neutrophil Count 8.8 X10^3/uL (2.0-7.7); Basophil# 0.03 X10^3/uL; Basophil% 0.3 % (0-1); Eosinophil# 0.18 X10^3/uL; Eosinophils% 1.7 % (0-5); Hematocrit 32.9 % (37-47); Hemoglobin 10.4 g/dL (12.0-15.0); Lymphocyte # 1.29 X10^3/ul (0.83-4.51); Lymphocyte % 11.8 % (19-41); Mean Corp Hgb Conc 31.6 g/dL (32-36); Mean Corpuscular Hgb 27.3 pg (27.0-32.0); Mean Corpuscular Volume 86.4 fL (81-99); Mean Platelet Vol. 10.1 fl (6.2-12.0); Monocyte# 0.54 X10^3/uL; NRBC Flagged by Analyzer 0 % (0-5); Neutrophil # 8.82 X10^3/uL (2.7-7.7); Neutrophil % 80.9 % (47-70); Platelet Count 292 K/mm3 (150-450); RBC Distribution Width CV 15.3 % (11.6-14.6); RBC Distribution Width SD 48.5 fl (35.1-43.9); Red Blood Count 3.81 M/mm3 (4.2-5.4); White Blood Count 10.9 K/mm3 (4.4-11.0)
[2023-08-22] MEDS: 0.9% Normal Saline (1000mL) 1,000 ML 999 ML IV (01:51)
[2023-08-22 02:05] LABS: ALB/GLOB Ratio 0.8 RATIO (0.9-2.4); AST(SGOT) 8 U/L (15-37); Alanine Aminotransfer ALT/SGPT 16 U/L (13-56); Alkaline Phosphatase 75 U/L (45-117); Anion Gap 5 (5-15); BUN 16 mg/dL (7-18); Calcium,Total 8.9 mg/dL (8.5-10.1); Chloride 110 mmol/L (98-107); Creatinine, Serum 0.89 mg/dL (0.55-1.02); EST Glomerular Filtration Rate 85 mL/min (>60); Est Glom Filt Rate - Afr Amer 103 mL/min (>60); Estimated Creatinine Clearance 90.73 ml/min; Globulin 3.9 g/dL (2.2-4.2); Glucose 97 mg/dL (74-106); Potassium 3.4 mmol/L (3.5-5.1); Protein, Total 6.9 g/dL (6.4-8.2); Sodium Level 140 mmol/L (136-145)
[2023-08-22 03:29] VITALS: BP 106/77; PULSE 68; RESP 15; O2SAT 98
[2023-08-22] MEDS: Dicyclomine 10 MG Capsule PO (04:01)
[2023-08-22] MEDS: Potassium Chloride Oral Tablet 20 MEQ 40 MEQ PO (04:01)
== END 2023-08-22 06:54 | disposition home or self-care (01) ==
PROVIDERS: Emergency Provider Emergency Medicine; PCP Pediatrics; Visit Provider Emergency Medicine
DX: R10.84 Generalized abdominal pain (principal); G82.50 Quadriplegia, unspecified; Z93.3 Colostomy status; E87.6 Hypokalemia; Z79.82 Long term (current) use of aspirin; Z79.899 Other long term (current) drug therapy; Z87.891 Personal history of nicotine dependence
CPT/HCPCS: 74177; 80053; 85025; 96360; 99285; J7030; Q9967; A4216

== ENCOUNTER 2023-08-23 20:50 | Emergency (ER) | payer MEDICAID, SELFPAY ==
[2023-08-23 20:51] VITALS: BP 122/72; PULSE 85; RESP 19; TEMP 36; O2SAT 98; BMI 37.4
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
[2023-08-23 21:48] LABS: Basophil# 0.04 X10^3/uL; Basophil% 0.4 % (0-1); Eosinophil# 0.24 X10^3/uL; Eosinophils% 2.4 % (0-5); Hematocrit 38.8 % (37-47); Hemoglobin 11.5 g/dL (12.0-15.0); Lymphocyte % 13.1 % (19-41); Mean Corp Hgb Conc 29.6 g/dL (32-36); Mean Corpuscular Hgb 26.9 pg (27.0-32.0); Mean Corpuscular Volume 90.7 fL (81-99); Mean Platelet Vol. 11.9 fl (6.2-12.0); NRBC Flagged by Analyzer 0 % (0-5); Neutrophil # 7.99 X10^3/uL (2.7-7.7); Neutrophil % 80.9 % (47-70); POSITIVE COUNT YES; RBC Distribution Width CV 15.3 % (11.6-14.6); RBC Distribution Width SD 50.4 fl (35.1-43.9); Red Blood Count 4.28 M/mm3 (4.2-5.4); White Blood Count 9.9 K/mm3 (4.4-11.0)
[2023-08-23 21:49] LABS: Differential Indicated SCAN CRITERIA MET
[2023-08-23] MEDS: HYDROmorphone 1 MG/ML Syringe SC (21:54)
[2023-08-23] MEDS: Ondansetron ODT 4 MG Tablet PO (21:54)
[2023-08-23 22:18] LABS: Mucous, Urine 0 SEEN /hpf (<or=2+)
[2023-08-23 22:20] LABS: Color, Urine Amber (Yellow); Glucose, Dipstick Normal (Normal); Leukocyte Esterase-Dipstick 500 /ul (Negative); Nitrite-Dipstick Positive (Negative); Occult Blood-Urine 250 /ul (Negative); Protein-Dipstick 100 mg/dl (Negative); Urine Clarity Turbid (Clear); Urine Urobilinogen 1 mg/dl (Normal)
[2023-08-23 22:21] LABS: Urine Bilirubin Dipstick 1 mg/dL (Negative)
[2023-08-23 22:22] LABS: Ketone-Dipstick 150 mg/dl (Negative)
[2023-08-23 22:25] LABS: Bacteria 3+ /hpf (None Seen); Red Blood Cells-Urine > 100 SEEN /hpf (0-5); White Blood Cells 25-50 SEEN /hpf (0-5)
[2023-08-23 22:26] LABS: Squamous Epithelial Cells - UA 0-5 SEEN /hpf (5-10)
[2023-08-23 22:26] LABS: Platelet Estimate ADEQUATE (ADEQ); Platelet Morphology CLUMPED; Red Cell Morphology N CHROM NORMAL (NORM C&C)
[2023-08-23 22:27] LABS: Anisocytosis RARE; Macrocytosis RARE
[2023-08-23 22:29] LABS: ALB/GLOB Ratio 0.6 RATIO (0.9-2.4); AST(SGOT) 18 U/L (15-37); Alanine Aminotransfer ALT/SGPT 17 U/L (13-56); Albumin, Serum 2.9 g/dL (3.2-5.0); Alkaline Phosphatase 75 U/L (45-117); Anion Gap 8 (5-15); BUN 17 mg/dL (7-18); BUN/Creat Ratio 19.3 RATIO (10-20); Calcium,Total 8.9 mg/dL (8.5-10.1); Chloride 110 mmol/L (98-107); Creatinine, Serum 0.88 mg/dL (0.55-1.02); EST Glomerular Filtration Rate 86 mL/min (>60); Est Glom Filt Rate - Afr Amer 104 mL/min (>60); Estimated Creatinine Clearance 91.76 ml/min; Globulin 4.8 g/dL (2.2-4.2); Glucose 85 mg/dL (74-106); Lipase 15 U/L (13-75); Potassium 4.2 mmol/L (3.5-5.1); Protein, Total 7.7 g/dL (6.4-8.2); Sodium Level 136 mmol/L (136-145)
[2023-08-23 22:50] VITALS: PULSE 85; RESP 19; O2SAT 97
[2023-08-23 23:25] VITALS: BP 110/74; PULSE 86; RESP 17; O2SAT 95
[2023-08-23] MEDS: Dicyclomine 10 MG Capsule 20 MG PO (23:58)
[2023-08-24] MEDS: Vancomycin 125 MG/5 ML Susp PO.SYRINGE PO (01:28)
== END 2023-08-24 03:00 | disposition home or self-care (01) ==
PROVIDERS: Emergency Provider Emergency Medicine; PCP Pediatrics; Visit Provider Emergency Medicine
DX: R10.9 Unspecified abdominal pain (principal); G82.50 Quadriplegia, unspecified; Z93.3 Colostomy status; Z87.891 Personal history of nicotine dependence; R11.10 Vomiting, unspecified; R19.7 Diarrhea, unspecified; F32.A Depression, unspecified; Z79.899 Other long term (current) drug therapy; Z79.82 Long term (current) use of aspirin
CPT/HCPCS: 80053; 81001; 83630; 83690; 85025; 87077; 87086; 87088; 87177; 87186; 87209; 87493; 87506; 96372; 99285

== ENCOUNTER 2023-09-01 11:40 | Emergency (ER) | payer MEDICAID, SELFPAY ==
[2023-09-01 11:42] VITALS: BP 99/69; PULSE 100; RESP 18; TEMP 37; O2SAT 98; BMI 39.7
[2023-09-01 13:44] VITALS: BP 115/56; PULSE 80; RESP 16; TEMP 36.8; O2SAT 95
[2023-09-01] MEDS: Lidocaine 1% (20 ml mdv) 20 ML Vial INFILT (13:58)
[2023-09-01] MEDS: oxyCODONE 5 MG Tablet PO (13:58)
[2023-09-01] MEDS: Smz/Tmp Ds Tablet 1 TABLET PO (13:58)
--- NOTE | 2023-09-01 15:51 | NURSING ---
CALLED [facility], ETA IS WITHIN THE HOUR
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
[2023-09-01 16:23] VITALS: PULSE 81; RESP 16; O2SAT 98
== END 2023-09-01 16:55 | disposition home or self-care (01) ==
PROVIDERS: Emergency Provider Emergency Medicine; PCP Pediatrics; Visit Provider Emergency Medicine
DX: L02.413 Cutaneous abscess of right upper limb (principal); Z93.3 Colostomy status; Z87.891 Personal history of nicotine dependence
CPT/HCPCS: 10060; 87070; 87077; 87186; 87205; 99285

== ENCOUNTER 2023-10-11 21:22 | Emergency (ER) | payer MEDICAID, SELFPAY ==
[2023-10-11 21:24] VITALS: BP 169/140; PULSE 90; RESP 16; TEMP 36.4; O2SAT 99; BMI 37.5
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
[2023-10-11] MEDS: Cephalexin 250 MG Capsule 500 MG PO (22:08)
[2023-10-11 22:27] VITALS: BP 132/88; PULSE 87; RESP 16; TEMP 36.7; O2SAT 95
--- NOTE | 2023-10-11 22:28 | NURSING ---
[facility]NED[facility] CALLED, ETA 2-3 HOURS
--- NOTE | 2023-10-11 22:34 | NURSING ---
Transport squad eta 2-3 hours. Pt informed.
[2023-10-11] MEDS: Captopril 12.5 MG Tablet 3.125 MG PO (23:48)
[2023-10-11 23:51] VITALS: BP 102/43; PULSE 89; RESP 16; O2SAT 98
== END 2023-10-11 23:52 | disposition home or self-care (01) ==
PROVIDERS: Emergency Provider Emergency Medicine; PCP Pediatrics; Visit Provider Emergency Medicine
DX: L89.159 Pressure ulcer of sacral region, unspecified stage (principal); G82.20 Paraplegia, unspecified; Z93.3 Colostomy status; N32.89 Other specified disorders of bladder; F17.210 Nicotine dependence, cigarettes, uncomplicated; F17.290 Nicotine dependence, other tobacco product, uncomplicated; Z79.82 Long term (current) use of aspirin; Z79.899 Other long term (current) drug therapy
CPT/HCPCS: 99284

== ENCOUNTER 2023-11-09 05:27 | Emergency (ER) | payer MEDICAID, SELFPAY ==
[2023-11-09 05:28] VITALS: BP 92/78; PULSE 78; RESP 16; TEMP 36.6; O2SAT 95; BMI 36.6
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
[2023-11-09] MEDS: Oxycodone/Apap 5/325 Tablet PO (06:30)
== END 2023-11-09 06:36 | disposition home or self-care (01) ==
PROVIDERS: Emergency Provider Emergency Medicine; PCP Pediatrics; Visit Provider Emergency Medicine
DX: L89.159 Pressure ulcer of sacral region, unspecified stage (principal); G82.20 Paraplegia, unspecified; N31.9 Neuromuscular dysfunction of bladder, unspecified; E66.9 Obesity, unspecified; F17.210 Nicotine dependence, cigarettes, uncomplicated; Z87.440 Personal history of urinary (tract) infections
CPT/HCPCS: 99284

== ENCOUNTER 2023-11-11 07:02 | Emergency (ER) | payer MEDICAID, SELFPAY ==
[2023-11-11 07:02] VITALS: BP 130/59; PULSE 74; RESP 18; TEMP 36.3; O2SAT 94; O2SAT 97; BMI 36.5
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
--- NOTE | 2023-11-11 07:25 | NURSING ---
called squad, eta is 20 to 30 min
== END 2023-11-11 08:04 | disposition home or self-care (01) ==
PROVIDERS: Emergency Provider Emergency Medicine; PCP Pediatrics; Visit Provider Emergency Medicine
DX: L89.152 Pressure ulcer of sacral region, stage 2 (principal); G82.20 Paraplegia, unspecified; Z93.3 Colostomy status; Z79.82 Long term (current) use of aspirin; F17.290 Nicotine dependence, other tobacco product, uncomplicated; Z90.5 Acquired absence of kidney
CPT/HCPCS: 99282

== ENCOUNTER 2023-11-13 03:18 | Emergency (ER) | payer MEDICAID, SELFPAY ==
[2023-11-13 03:19] VITALS: BP 101/43; PULSE 101; RESP 18; TEMP 36.6; O2SAT 97; BMI 38.0
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
[2023-11-13] MEDS: Ketorolac 15 MG/ML Vial IV (04:42)
[2023-11-13 04:47] LABS: Absolute Lymphocyte Count 2.34 X10^3/uL (0.83-4.51); Absolute Neutrophil Count 7.6 X10^3/uL (2.0-7.7); Basophil# 0.04 X10^3/uL; Basophil% 0.4 % (0-1); Eosinophils% 2.8 % (0-5); Hematocrit 35.3 % (37-47); Hemoglobin 11.1 g/dL (12.0-15.0); Lymphocyte # 2.34 X10^3/ul (0.83-4.51); Lymphocyte % 21.6 % (19-41); Mean Corp Hgb Conc 31.4 g/dL (32-36); Mean Corpuscular Hgb 26.4 pg (27.0-32.0); Mean Corpuscular Volume 83.8 fL (81-99); Mean Platelet Vol. 10.3 fl (6.2-12.0); Monocyte# 0.54 X10^3/uL; NRBC Flagged by Analyzer 0 % (0-5); Neutrophil # 7.59 X10^3/uL (2.7-7.7); Neutrophil % 69.9 % (47-70); Platelet Count 304 K/mm3 (150-450); RBC Distribution Width CV 15.6 % (11.6-14.6); RBC Distribution Width SD 47.2 fl (35.1-43.9); Red Blood Count 4.21 M/mm3 (4.2-5.4); White Blood Count 10.8 K/mm3 (4.4-11.0)
[2023-11-13 05:05] LABS: Anion Gap 5 (5-15); BUN 18 mg/dL (7-18); BUN/Creat Ratio 22.1 RATIO (10-20); Calcium,Total 8.4 mg/dL (8.5-10.1); Chloride 114 mmol/L (98-107); Creatinine, Serum 0.81 mg/dL (0.55-1.02); EST Glomerular Filtration Rate 95 mL/min (>60); Est Glom Filt Rate - Afr Amer 114 mL/min (>60); Estimated Creatinine Clearance 99.69 ml/min; Glucose 115 mg/dL (74-106); Potassium 3.7 mmol/L (3.5-5.1); Sodium Level 142 mmol/L (136-145)
[2023-11-13 05:18] LABS: Erythrocyte Sedimentation Rate 38 mm/hr (0-30)
--- NOTE | 2023-11-13 05:20 | CT_ITS ---
STUDY: CT PELVIS WITH CONTRAST REASON FOR EXAM: Female, 22 years old patient with sacral wound and worsening pain. RADIATION DOSAGE (If Supplied By Facility): CTDIvol = ( 28.12 ) mGy, DLP = ( 1145.06 ) mGycm TECHNIQUE: Transaxial imaging of the pelvis was performed without oral contrast. 100 mL of Isovue-300 was administered intravenously. Multiplanar coronal and sagittal images were reformatted. Individualized dose optimization techniques were used for this CT. COMPARISON: CT abdomen and pelvis dated August 22, 2023. FINDINGS: Patient has a suprapubic catheter. The urinary bladder is nondistended. There is some thickening of the urinary bladder wall which measures approximately 8.7 mm. There is no obvious dilated bowel, ascites or pneumoperitoneum. Small bowel has a grossly normal appearance. There is an ostomy in the left lower quadrant abdominal wall which appears to have colon. Normal visualized colon. There is no pelvic fluid. There is no pelvic lymphadenopathy or mass lesion. Normal visualized uterus. Normal visualized pelvic arteries. There is absence of normal soft tissue posterior to the coccygeal segments apparently is related to known ulceration. This abuts the coccyx. There appears to be absence of the distalmost coccygeal segments possibly secondary either to surgery or osteomyelitis. The bony pelvis otherwise appears to be intact. CT/Pelvis WITH IV Contrast IMPRESSION: Persistent soft tissue ulceration posterior to the coccyx with absence of the distal most coccygeal segments appears similar to previous CT. Electronically Signed: Jessica Banks MD at 6:35 EST ,
[2023-11-13 07:08] VITALS: BP 85/56; PULSE 70; RESP 15; O2SAT 95
--- NOTE | 2023-11-13 07:09 | ED.RN ---
KENNEDY CALLED, ETA 90 MIN ([id number])
[2023-11-13 07:20] VITALS: BP 104/59
[2023-11-13 07:39] VITALS: BP 104/59; PULSE 63; RESP 16; O2SAT 95
[2023-11-13 07:54] VITALS: BP 104/59; PULSE 63; RESP 14; O2SAT 98
[2023-11-13] MEDS: 0.9% Saline Lock 10 ML Syringe IV (08:08)
== END 2023-11-13 08:51 | disposition home or self-care (01) ==
PROVIDERS: Emergency Provider Emergency Medicine; PCP Pediatrics; Visit Provider Emergency Medicine
DX: L89.152 Pressure ulcer of sacral region, stage 2 (principal); G82.20 Paraplegia, unspecified; Z93.3 Colostomy status; G40.909 Epilepsy, unspecified, not intractable, without status epilepticus; M53.3 Sacrococcygeal disorders, not elsewhere classified; N31.9 Neuromuscular dysfunction of bladder, unspecified; Q60.0 Renal agenesis, unilateral; F32.A Depression, unspecified; F17.210 Nicotine dependence, cigarettes, uncomplicated; Z79.82 Long term (current) use of aspirin; Z79.899 Other long term (current) drug therapy
CPT/HCPCS: 36591; 72193; 80048; 85025; 85652; 86140; 87070; 87077; 87186; 87205; 96374; 99282; Q9967; A4216

== ENCOUNTER 2023-12-09 12:37 | Emergency (ER) | payer MEDICAID, SELFPAY ==
[2023-12-09 12:46] VITALS: BP 120/74; PULSE 79; RESP 16; TEMP 36.6; O2SAT 98; BMI 37.8
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
--- NOTE | 2023-12-09 15:03 | ED.RN ---
SUPRAPUBIC CATHETER REMOVED BY DR LERNER WITH SLIGHT RESISTANCE, SMALL AMOUNT OF BRIGHT RED BLEEDING NOTED. NEW 16/5 CATHETER INSERTED SUPRAPUBIC BY DR LERNER WITHOUT DIFFICULTY. CATHETER MANUALLY FLUSHED WITH NO RESISTANCE WITH 100ML STERILE WATER. URINE INITIALLY HAD SMALL AMOUNT OF BLOOD, PINK COLOR. AFTER FLUSHING URINE DRAINING PALE YELLOW.
[2023-12-09 17:33] VITALS: BP 113/70; PULSE 78
--- NOTE | 2023-12-09 18:39 | ED.RN ---
CALLED PHYSICIANS AT 183 FOR AN UPDATE ON THE ETA (ORIGINAL ETA [id number]). THEY SAID ANOTHER 2 HOURS DUE TO BACK UP.
--- NOTE | 2023-12-09 20:43 | ED.RN ---
CALLED PHYSICIANS AT 2034 REQUESTING AN UPDATED ETA, THEY SAID ANOTHER 90 MINS. ETA 0000. THEY DID NOT CALL BEFORE HAND WITH INFORMATION INFORMING US WITH NEW ETA.
== END 2023-12-10 00:14 | disposition home or self-care (01) ==
PROVIDERS: Emergency Provider Emergency Medicine; PCP Physician Assistant; Visit Provider Emergency Medicine
DX: T83.028A Displacement of other urinary catheter, initial encounter (principal); G82.50 Quadriplegia, unspecified; Z93.3 Colostomy status; V00.818A Other accident with wheelchair (powered), initial encounter; N31.9 Neuromuscular dysfunction of bladder, unspecified; F17.290 Nicotine dependence, other tobacco product, uncomplicated; Z79.82 Long term (current) use of aspirin; Z79.01 Long term (current) use of anticoagulants; Z79.899 Other long term (current) drug therapy
CPT/HCPCS: 51705; 99283

== ENCOUNTER 2024-01-19 19:11 | Emergency (ER) | payer MEDICAID, SELFPAY ==
[2024-01-19 19:12] VITALS: BP 110/69; PULSE 68; RESP 16; TEMP 36.3; O2SAT 98; BMI 37.2
--- NOTE | 2024-01-19 19:35 | ED.VIS.DENTA ---
HPI History of Present Illness Chief Complaint: Dental Detail of Chief Complaint: Dental pain left lower molar Informant: patient Onset/Context/Timing Onset: Yesterday Context: Sudden Onset Timing: Continuous Quality: Pain Location: Left lower molar Current Severity: Mild Maximum Severity: Severe Worsened by: Cold liquids Relieved by: NSAIDs and Topicals Associated Symptoms Assocated Symptom - Dental: cold sensitivity; Negative for fever, jaw swelling, face swelling or hot sensitivity Narrative Narrative: Patient 23-year-old who presents with dental pain. Denies a dentist. Denies fever, chills night sweats. Denies difficulty opening or closing her mouth completely. Denies change in voice. Denies drooling. She denies history medic fever, heart murmur mitral valve prolapse. She is on no immunosuppressive meds. 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 Depression Double uterus Excessive bleeding Former smoker Indwelling urethral catheter present Neck fracture Neurogenic bladder New onset seizure Open wound Paraplegic spinal paralysis Seizures Single kidney Ureteral calculus Urinary retention Urinary tract infection Wounds, multiple Home Medications aspirin 81 mg tablet,delayed release 81 mg PO DAILY heart health 07/17/21 [History Last Taken 10/27/22 08:00] baclofen 20 mg tablet 40 mg PO BID muscle spasms 07/17/21 [History Last Taken 10/27/22 2200] cholecalciferol (vitamin D3) 25 mcg (1,000 unit) capsule (Vitamin D3) 25 mcg PO DAILY supplement 07/17/21 [History Last Taken 10/27/22 08:00] docusate sodium 100 mg capsule 100 mg PO TID PRN stool softener 07/17/21 [History Last Taken 10/27/22 08:00] escitalopram oxalate 20 mg tablet 20 mg PO DAILY depression 07/17/21 [History Last Taken 10/27/22 08:00] nitroglycerin 2 % transdermal ointment 1 inch transdermal PRN PRN autonomic dysreflexia 07/17/21 [History Last Taken Unknown] methenamine hippurate 1 gram tablet (Hiprex) 1 g PO Q12H UTI prevention 09/12/22 [History Last Taken 10/27/22 22:00] nystatin 100,000 unit/gram topical powder 1 applic topical BID skin irritation 09/12/22 [History Last Taken Unknown] enoxaparin 40 mg/0.4 mL subcutaneous syringe 40 mg subcut BID 02/10/23 [History Last Taken Unknown] polyethylene glycol 3350 17 gram oral powder packet 17 g PO PRN PRN STOOL SOFTENER 02/10/23 [History Last Taken Unknown] dicyclomine 10 mg capsule 20 mg (2 x 10 mg) PO Q6H PRN PRN abdominal pain #20 CAPSULES 08/23/23 [Rx Last Taken Unknown] ondansetron 4 mg disintegrating tablet 8 mg (2 x 4 mg) PO Q8H PRN PRN Nausea #20 tabs 08/23/23 [Rx Last Taken Unknown] captopril 12.5 mg tablet 3.125 mg PO DAILY PRN 10/11/23 [History Last Taken Unknown] melatonin 1 mg tablet 2 mg PO QHS 10/11/23 [History Last Taken Unknown] oxybutynin chloride 5 mg tablet,extended release 24 hr 5 mg PO DAILY 10/11/23 [History Last Taken Unknown] tizanidine 4 mg tablet 4 mg PO Q12H 10/11/23 [History Last Taken Unknown] white petrolatum 86.5 % topical ointment (Critic-Aid Clear) 1 applic topical TID #71 grams 11/09/23 [Rx Last Taken Unknown] hydrocodone-acetaminophen 5-325mg 5mg-325mg 1 tab PO Q8H PRN pain 3 days #10 tabs 11/13/23 [Rx Last Taken Unknown] levofloxacin 750 mg tablet 750 mg PO DAILY #10 tabs 11/16/23 [Rx Last Taken Unknown] naproxen 500 mg tablet 500 mg PO BID #14 tabs 01/19/24 [Rx Last Taken Unknown] penicillin V potassium 250 mg tablet 500 mg (2 x 250 mg) PO 4X/DAY #28 tabs 01/19/24 [Rx Last Taken Unknown] Allergy/AdvReac Type Severity Reaction Status Date / Time No Known Allergies Allergy Verified 01/19/24 19:11 Surgical History H/O thumb surgery History of colectomy History of cystoscopy History of urethral stent History of urostomy S/P cervical spinal fusion Social History household members: family Smoking Status: Current every day smoker tobacco type: e-cigarettes alcohol intake: never substance use type: does not use ROS ROS ED Constitutional Constitutional ED: Denies chills, fever(s), subjective or sweats Eyes Eyes: Denies blurry vision or change in vision ENT ENT ED: Reports other Details: Detailed HPI narrative ; Denies ear pain or sore throat Cardiovascular Cardiovascular: Reports other Details: Detailed HPI narrative ; Denies chest pain or palpitations Respiratory/Chest Respiratory/Chest: Denies cough or dyspnea Gastrointestinal Gastrointestinal: Denies nausea or vomiting Musculoskeletal Musculoskeletal: Denies neck pain Integumentary Denies rash Hematologic/Lymphatic Hematologic/Lymphatic: Denies easy bleeding or easy bruising EXAM Physical Exam Const Vital Signs: 01/19/24 19:12 Temperature 97.3 F L Temperature Source Temporal Pulse Rate 68 Respiratory Rate 16 Blood Pressure 110/69 Blood Pressure Mean 82 Pulse Ox 98 Oxygen Delivery Method Room Air Positive well nourished, well developed and obese Constitutional Narrative: I then of the room she was texting someone. General Appearance ED: well developed and NAD Nutritional Appearance: obese HEENT Reports TM's clear HEENT Narrative: Patient has evidence of a pericarditis Negative for trauma or tenderness Face and Sinus: sinuses nontender Tympanic Membrane ED: Yes TM's clear Mouth ED: Yes oral and palatal mucosa normal, Yes lips normal, Yes tongue normal, Yes salivary gland normal, No mouth trauma, Yes oral and palatal mucosa abnormal and No salivary gland abnormal Mouth: oral and palatal mucosa normal, lips normal, tongue normal, salivary gland normal, No mouth trauma, oral and palatal mucosa abnormal and No salivary gland abnormal Teeth and Gingiva: abnormal tooth and associated gingiva, caries and gingiva abnormal; Negative for poor dentition or teeth discoloration Throat: posterior oropharynx normal Eyes PERRL and EOMs intact bilaterally General Eye ED: Negative for pale conjunctiva or scleral icterus Neck no lymphadenopathy, supple and no JVD Neck Narrative: Trachea is midline. There is no in-store extra stridor. There is no fullness of the floor of the mouth. General: normal visual inspection; Negative for anterior neck swelling, tenderness or submandibular swelling Resp normal respiratory effort, no retractions and clear to auscultation bilaterally Cardio regular rate, regular rhythm, S1 normal heart sound, S2 normal heart sound and no murmurs Neuro oriented x3 and CN's II-XII intact bilaterally Psych mental status grossly normal Skin Skin Narrative: There is no evidence of facial cellulitis or swelling. MDM MDM MDM Narrative Medical decision making narrative: Patient with dental pain she does have dental caries. She does have findings consistent with symptomatic reversible pulpitis. She also has evidence of pericoronitis. There is no concern for Ludewig's angina. She may have a dental infection i.e. dental abscess that is not evident. She will need dental films. Treatment and Re-Evaluation Narrative: Patient received first dose of NSAID and antibiotics in department was discharged with prescription for both. He also given dental sheet. Discharge Plan Triage Chief Complaint: Dental ED Provider: Sylvain Theodore Dx/Rx/DC Orders Clinical Impression: Gingivitis, Dental caries limited to enamel, Symptomatic reversible pulpitis, Acute pericoronitis Instructions: ED Dental Pain Prescriptions: New penicillin V potassium 250 mg tablet 500 mg PO 4X/DAY Qty: 28 0RF naproxen 500 mg tablet 500 mg PO BID Qty: 14 0RF No Action aspirin 81 mg Tablet,Delayed Release (Dr/Ec) 81 mg PO DAILY baclofen 20 mg Tablet 40 mg PO BID nitroglycerin 2 % Ointment 1 inch TRANSDERMAL PRN PRN (Reason: autonomic dysreflexia) cholecalciferol (vitamin D3) [Vitamin D3] 25 mcg (1,000 unit) Capsule 25 mcg PO DAILY docusate sodium 100 mg Capsule 100 mg PO TID PRN (Reason: stool softener) escitalopram oxalate 20 mg Tablet 20 mg PO DAILY methenamine hippurate [Hiprex] 1 gram tablet 1 g PO Q12H Rx Instructions: can be continued indefinitely. For UTI prevention. nystatin 100,000 unit/gram powder 1 applic topical BID enoxaparin 40 mg/0.4 mL syringe 40 mg subcut BID Patient Comments: INJECT 0.4 ML SUBCUTANEOUSLY EVERY 12 HOURS polyethylene glycol 3350 17 gram powder in packet 17 g PO PRN PRN (Reason: STOOL SOFTENER) Rx Instructions: 1 cap full three times a day as needed for constipation, it is OTC tizanidine 4 mg tablet 4 mg PO Q12H Patient Comments: Take 1 tablet by mouth two times a day. oxybutynin chloride 5 mg tablet extended release 24hr 5 mg PO DAILY Patient Comments: Take 1 tablet by mouth once daily. melatonin 1 mg tablet 2 mg PO QHS Patient Comments: Take 2 tablets by mouth daily at bedtime. Take 1 mg at 1200 a.m. and 1 mg at 200 a.m. captopril 12.5 mg tablet 3.125 mg PO DAILY PRN dicyclomine 10 mg capsule 20 mg PO Q6H PRN PRN (Reason: abdominal pain) Qty: 20 0RF ondansetron [ondansetron] 4 mg tablet,disintegrating 8 mg PO Q8H PRN PRN (Reason: Nausea) Qty: 20 0RF Critic-Aid Clear 86.5 % ointment 1 applic topical TID Qty: 71 2RF hydrocodone-acetaminophen 5-325 mg tablet 1 tab PO Q8H PRN (Reason: pain) 3 Days Qty: 10 0RF levofloxacin 750 mg tablet 750 mg PO DAILY Qty: 10 0RF Primary Care Provider: Taylor Last Referrals: Taylor Last, CHERY [Primary Care Provider] - Disposition Disposition: Home, Self Care
[2024-01-19 19:39] VITALS: BP 104/66; PULSE 84; RESP 16; TEMP 36.3; O2SAT 100
[2024-01-19] MEDS: Penicillin Vk 250 MG Tablet 500 MG PO (19:50)
[2024-01-19] MEDS: Naproxen 250 MG Tablet 500 MG PO (19:50)
== END 2024-01-19 20:20 | disposition home or self-care (01) ==
LOC: ED 19:44
PROVIDERS: Emergency Provider Emergency Medicine; PCP Physician Assistant; Visit Provider Emergency Medicine
DX: K05.10 Chronic gingivitis, plaque induced (principal); K02.9 Dental caries, unspecified; K04.01 Reversible pulpitis; F17.290 Nicotine dependence, other tobacco product, uncomplicated; E66.9 Obesity, unspecified; K05.20 Aggressive periodontitis, unspecified
CPT/HCPCS: 99283

== ENCOUNTER 2024-03-25 22:51 | Emergency (ER) | payer MEDICAID, SELFPAY ==
[2024-03-25 22:52] VITALS: BP 142/100; PULSE 84; RESP 17; TEMP 36.4; O2SAT 98; BMI 35.7
--- NOTE | 2024-03-25 23:00 | EDS_ITS ---
HPI HPI - Psych History of Present Illness Chief Complaint: Suicidal Narrative Narrative: 23-year-old female past medical history of depression and anxiety, quadriplegia but has regained motion of her bilateral upper extremities to some degree, presents via EMS with suicidal ideation. She has been pink slipped by police because they were called to her house, because she was feeling suicidal. She states that she lives with a roommate who is not there, and she is depressed and suicidal because her mother is her main economic analysis director although she does not live with her, and patient states she has not seen her mother since Friday, 4 days ago. She told police when they were there that her plan would be to take her wheelchair, go to the kitchen, and get a knife. She relates history that she was admitted in 2009 for suicidal ideation and will be because she attempted to kill herself with scissors. 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 Depression Double uterus Excessive bleeding Former smoker Indwelling urethral catheter present Neck fracture Neurogenic bladder New onset seizure Open wound Paraplegic spinal paralysis Seizures Single kidney Ureteral calculus Urinary retention Urinary tract infection Wounds, multiple Home Medications aspirin 81 mg tablet,delayed release 81 mg PO DAILY heart health 07/17/21 [History Last Taken 10/27/22 08:00] baclofen 20 mg tablet 40 mg PO BID muscle spasms 07/17/21 [History Last Taken 10/27/22 2200] cholecalciferol (vitamin D3) 25 mcg (1,000 unit) capsule (Vitamin D3) 25 mcg PO DAILY supplement 07/17/21 [History Last Taken 10/27/22 08:00] docusate sodium 100 mg capsule 100 mg PO TID PRN stool softener 07/17/21 [History Last Taken 10/27/22 08:00] escitalopram oxalate 20 mg tablet 20 mg PO DAILY depression 07/17/21 [History Last Taken 10/27/22 08:00] nitroglycerin 2 % transdermal ointment 1 inch transdermal PRN PRN autonomic dysreflexia 07/17/21 [History Last Taken Unknown] methenamine hippurate 1 gram tablet (Hiprex) 1 g PO Q12H UTI prevention 09/12/22 [History Last Taken 10/27/22 22:00] nystatin 100,000 unit/gram topical powder 1 applic topical BID skin irritation 09/12/22 [History Last Taken Unknown] enoxaparin 40 mg/0.4 mL subcutaneous syringe 40 mg subcut BID 02/10/23 [History Last Taken Unknown] polyethylene glycol 3350 17 gram oral powder packet 17 g PO PRN PRN STOOL SOFTENER 02/10/23 [History Last Taken Unknown] dicyclomine 10 mg capsule 20 mg (2 x 10 mg) PO Q6H PRN PRN abdominal pain #20 CAPSULES 08/23/23 [Rx Last Taken Unknown] ondansetron 4 mg disintegrating tablet 8 mg (2 x 4 mg) PO Q8H PRN PRN Nausea #20 tabs 08/23/23 [Rx Last Taken Unknown] captopril 12.5 mg tablet 3.125 mg PO DAILY PRN 10/11/23 [History Last Taken Unknown] melatonin 1 mg tablet 2 mg PO QHS 10/11/23 [History Last Taken Unknown] oxybutynin chloride 5 mg tablet,extended release 24 hr 5 mg PO DAILY 10/11/23 [History Last Taken Unknown] tizanidine 4 mg tablet 4 mg PO Q12H 10/11/23 [History Last Taken Unknown] white petrolatum 86.5 % topical ointment (Critic-Aid Clear) 1 applic topical TID #71 grams 11/09/23 [Rx Last Taken Unknown] hydrocodone-acetaminophen 5-325mg 5mg-325mg 1 tab PO Q8H PRN pain 3 days #10 tabs 11/13/23 [Rx Last Taken Unknown] naproxen 500 mg tablet 500 mg PO BID #14 tabs 01/19/24 [Rx Last Taken Unknown] penicillin V potassium 250 mg tablet 500 mg (2 x 250 mg) PO 4X/DAY #28 tabs 01/19/24 [Rx Last Taken Unknown] Allergy/AdvReac Type Severity Reaction Status Date / Time No Known Allergies Allergy Verified 03/25/24 22:52 Surgical History H/O thumb surgery History of colectomy History of cystoscopy History of urethral stent History of urostomy S/P cervical spinal fusion Social History household members: family Smoking Status: Current every day smoker tobacco type: e-cigarettes alcohol intake: never substance use type: does not use ROS ROS ED ROS Narrative Focused review of system reveals positive depression with suicidal ideation. She has a plan to take her wheelchair, go to the kitchen, and grab a knife to stab herself. She denies any somatic complaints. EXAM Physical Exam Narrative Exam Narrative: Afebrile. Vital signs noted. Positive quadriplegia with some range of motion of her bilateral upper extremities. Regular rate and rhythm. Lungs clear to auscultation bilaterally. Abdomen soft and nontender with normal active bowel sounds. Psychiatric examination also reveals her to be mildly tearful on examination. Const Vital Signs: 03/25/24 22:52 03/25/24 23:52 03/26/24 00:00 Temperature 97.6 F L Temperature Source Temporal Pulse Rate 84 Respiratory Rate 17 16 15 Blood Pressure 142/100 H Blood Pressure Mean 114 Pulse Ox 98 Oxygen Delivery Method Room Air MDM MDM MDM Narrative Medical decision making narrative: Concern is for depression with suicidal ideation, and suicidal ideation with plan. Medical screening labs will be obtained. She does have history of neurogenic bladder and review of her problem list. I reviewed her laboratory work and she has normal white count 9.1, hemoglobin stable 11.2, hematocrit 35.6, platelet count normal at 315. I reviewed her CMP and she has chloride of 110 which I think is nonspecific, normal BUN of 16, creatinine normal at 0.83. Glucose 99. Serum is negative. Her urinalysis shows WBCs greater than 100 and positive nitrites. However, I think that she probably has colonized urine. I do not feel antibiotics are indicated. She is afebrile here and she does not have a leukocytosis. Urine for drugs of abuse is negative. Ethanol level is also negative. At this point in time, I feel she is medically cleared for evaluation by crisis counselor. After evaluation by crisis counselor, it was felt that the patient could be discharged under safety plan. She was frustrated with the care that her mother was giving her, not seeing her. She has had friends and neighbors who will come over and help her. Crisis counselor also states that they will tell her roommate to elevate medications and knives in the meantime. I feel she can be discharged to follow-up under her safety plan. Return instructions were reviewed. Disposition is discharged in stable condition. History & Record Review Discussion w/independent historian: Patient Additional record(s) reviewed:: Prior labs Lab Data Attestation: I reviewed the patient's lab results. Labs: Laboratory Results - last 24 hr 03/25/24 03/25/24 23:18 23:50 WBC 9.1 RBC 4.18 L Hgb 11.2 L Hct 35.6 L MCV 85.2 MCH 26.8 L MCHC 31.5 L RDW Std Deviation 47.8 H RDW Coeff of Anurag 15.3 H Plt Count 315 MPV 9.8 Immature Gran % (Auto) 0.200 Neut % (Auto) 67.2 Lymph % (Auto) 24.0 [place] % (Auto) 5.9 Eos % (Auto) 2.3 Baso % (Auto) 0.4 Absolute Neuts (auto) 6.1 Absolute Lymphs (auto) 2.18 Nucleated RBC % 0 Sodium 140 Potassium 3.9 Chloride 110 H Carbon Dioxide 26.0 Anion Gap 4 L BUN 16 Creatinine 0.83 Estim Creat Clear Calc 123.90 Est GFR (MDRD) Af Amer 112 Est GFR (MDRD) Non-Af 92 BUN/Creatinine Ratio 19.3 Glucose 99 Calcium 8.8 Total Bilirubin 0.30 AST 13 L ALT 22 Alkaline Phosphatase 66 Total Protein 7.0 Albumin 3.1 L Globulin 3.9 Albumin/Globulin Ratio 0.8 L Serum , Qual NEGATIVE Urine Color Yellow Urine Clarity Cloudy Urine pH 6.5 Ur Specific Waddy 1.015 Urine Protein 100 H Urine Glucose (UA) Normal Urine Ketones Negative Urine Occult Blood 50 H Urine Nitrite Positive H Urine Bilirubin Negative Urine Urobilinogen Normal Ur Leukocyte Esterase 500 H Urine RBC 25-50 SEEN Urine WBC >100 SEEN Ur Squamous Epith Cells 10-25 SEEN Urine Bacteria 4+ Hyaline Casts 5-10 SEEN Urine Mucus 1+ Urine Opiates Screen NEGATIVE Urine Methadone Screen NEGATIVE Ur Barbiturates Screen NEGATIVE Ur Phencyclidine Scrn NEGATIVE Ur Amphetamines Screen NEGATIVE MDMA (Ecstasy) Screen NEGATIVE U Benzodiazepines Scrn NEGATIVE Urine Cocaine Screen NEGATIVE U Cannabinoids Screen NEGATIVE Ur Drug Screen Comment Ethyl Alcohol < 3.0 Discharge Plan Triage Chief Complaint: Suicidal ED Provider: Orestes Spencer Dx/Rx/DC Orders Clinical Impression: Suicidal thoughts, Depression Instructions: Suicide Know Self Warnings, ED Depression Prescriptions: No Action aspirin 81 mg Tablet,Delayed Release (Dr/Ec) 81 mg PO DAILY baclofen 20 mg Tablet 40 mg PO BID nitroglycerin 2 % Ointment 1 inch TRANSDERMAL PRN PRN (Reason: autonomic dysreflexia) cholecalciferol (vitamin D3) [Vitamin D3] 25 mcg (1,000 unit) Capsule 25 mcg PO DAILY docusate sodium 100 mg Capsule 100 mg PO TID PRN (Reason: stool softener) escitalopram oxalate 20 mg Tablet 20 mg PO DAILY methenamine hippurate [Hiprex] 1 gram tablet 1 g PO Q12H Rx Instructions: can be continued indefinitely. For UTI prevention. nystatin 100,000 unit/gram powder 1 applic topical BID enoxaparin 40 mg/0.4 mL syringe 40 mg subcut BID Patient Comments: INJECT 0.4 ML SUBCUTANEOUSLY EVERY 12 HOURS polyethylene glycol 3350 17 gram powder in packet 17 g PO PRN PRN (Reason: STOOL SOFTENER) Rx Instructions: 1 cap full three times a day as needed for constipation, it is OTC tizanidine 4 mg tablet 4 mg PO Q12H Patient Comments: Take 1 tablet by mouth two times a day. oxybutynin chloride 5 mg tablet extended release 24hr 5 mg PO DAILY Patient Comments: Take 1 tablet by mouth once daily. melatonin 1 mg tablet 2 mg PO QHS Patient Comments: Take 2 tablets by mouth daily at bedtime. Take 1 mg at 1200 a.m. and 1 mg at 200 a.m. captopril 12.5 mg tablet 3.125 mg PO DAILY PRN dicyclomine 10 mg capsule 20 mg PO Q6H PRN PRN (Reason: abdominal pain) Qty: 20 0RF ondansetron [ondansetron] 4 mg tablet,disintegrating 8 mg PO Q8H PRN PRN (Reason: Nausea) Qty: 20 0RF Critic-Aid Clear 86.5 % ointment 1 applic topical TID Qty: 71 2RF hydrocodone-acetaminophen 5-325 mg tablet 1 tab PO Q8H PRN (Reason: pain) 3 Days Qty: 10 0RF penicillin V potassium 250 mg tablet 500 mg PO 4X/DAY Qty: 28 0RF naproxen 500 mg tablet 500 mg PO BID Qty: 14 0RF Primary Care Provider: Taylor Last Referrals: Taylor Last PA [Primary Care Provider] - As soon as possible Disposition Disposition: Home, Self Care
--- NOTE | 2024-03-25 23:00 | ED.RN ---
Per Dr. Spencer no sitter needed.
[2024-03-25 23:37] LABS: Color, Urine Yellow (Yellow); Glucose, Dipstick Normal (Normal); Ketone-Dipstick Negative (Negative); Leukocyte Esterase-Dipstick 500 /ul (Negative); Nitrite-Dipstick Positive (Negative); Occult Blood-Urine 50 /ul (Negative); Protein-Dipstick 100 mg/dl (Negative); Specific Gravity, Urine 1.015 (1.002-1.030); Urine Bilirubin Dipstick Negative (Negative); Urine Clarity Cloudy (Clear); Urine Urobilinogen Normal (Normal); Urine pH 6.5 (5.0 - 8.0)
[2024-03-25 23:43] LABS: White Blood Cells >100 SEEN /hpf (0-5)
[2024-03-25 23:44] LABS: Bacteria 4+ /hpf (None Seen); Hyaline Cast 5-10 SEEN /lpf (0-5); Mucous, Urine 1+ /hpf (<or=2+); Red Blood Cells-Urine 25-50 SEEN /hpf (0-5); Squamous Epithelial Cells - UA 10-25 SEEN /hpf (5-10)
[2024-03-25 23:52] VITALS: RESP 16
[2024-03-25 23:58] LABS: Absolute Lymphocyte Count 2.18 X10^3/uL (0.83-4.51); Absolute Neutrophil Count 6.1 X10^3/uL (2.0-7.7); Basophil# 0.04 X10^3/uL; Basophil% 0.4 % (0-1); Eosinophil# 0.21 X10^3/uL; Eosinophils% 2.3 % (0-5); Hematocrit 35.6 % (37-47); Hemoglobin 11.2 g/dL (12.0-15.0); Lymphocyte # 2.18 X10^3/ul (0.83-4.51); Mean Corp Hgb Conc 31.5 g/dL (32-36); Mean Corpuscular Hgb 26.8 pg (27.0-32.0); Mean Corpuscular Volume 85.2 fL (81-99); Mean Platelet Vol. 9.8 fl (6.2-12.0); Monocyte# 0.54 X10^3/uL; Monocyte% 5.9 % (0-10); NRBC Flagged by Analyzer 0 % (0-5); Neutrophil # 6.09 X10^3/uL (2.7-7.7); Neutrophil % 67.2 % (47-70); Platelet Count 315 K/mm3 (150-450); RBC Distribution Width CV 15.3 % (11.6-14.6); RBC Distribution Width SD 47.8 fl (35.1-43.9); Red Blood Count 4.18 M/mm3 (4.2-5.4); White Blood Count 9.1 K/mm3 (4.4-11.0)
[2024-03-26] VITALS: RESP 15
[2024-03-26 00:06] LABS: Amphetamine Urine VISTA NEGATIVE (<1000 ng/mL); Barbiturate Urine VISTA NEGATIVE (< 200 ng/mL); Benzodiazepine Urine VISTA NEGATIVE (< 200 ng/mL); Cocaine Urine VISTA NEGATIVE (< 300 ng/mL); Ecstacy Urine VISTA NEGATIVE (< 500 ng/mL); Methadone Urine VISTA NEGATIVE (< 300 ng/mL); PCP Urine VISTA NEGATIVE (< 25 ng/mL); THC Urine VISTA NEGATIVE (< 50 ng/mL); Vista UDS pH Range 6
[2024-03-26 00:10] LABS: Internal QC Validated? YES +Cl - CLEAR BKGD; Pregnancy, Serum, hCG Quali. NEGATIVE Negative; Record Kit Lot#, Serum Preg. 718089
[2024-03-26 00:20] LABS: ALB/GLOB Ratio 0.8 RATIO (0.9-2.4); AST(SGOT) 13 U/L (15-37); Alanine Aminotransfer ALT/SGPT 22 U/L (13-56); Albumin, Serum 3.1 g/dL (3.2-5.0); Alkaline Phosphatase 66 U/L (45-117); Anion Gap 4 (5-15); BUN 16 mg/dL (7-18); BUN/Creat Ratio 19.3 RATIO (10-20); Calcium,Total 8.8 mg/dL (8.5-10.1); Chloride 110 mmol/L (98-107); Creatinine, Serum 0.83 mg/dL (0.55-1.02); EST Glomerular Filtration Rate 92 mL/min (>60); Est Glom Filt Rate - Afr Amer 112 mL/min (>60); Globulin 3.9 g/dL (2.2-4.2); Glucose 99 mg/dL (74-106); Potassium 3.9 mmol/L (3.5-5.1); Sodium Level 140 mmol/L (136-145)
[2024-03-26 00:34] LABS: Alcohol, Blood (Medical)-Serum < 3.0 mg/dL
[2024-03-26 05:19] VITALS: BP 100/66; PULSE 91; RESP 16; TEMP 36.5; O2SAT 95
[2024-03-26] MEDS: 0.9% Saline Lock 10 ML Syringe IV (05:27)
== END 2024-03-26 05:40 | disposition home or self-care (01) ==
PROVIDERS: Emergency Provider Emergency Medicine; PCP Physician Assistant; Visit Provider Emergency Medicine
DX: F32.A Depression, unspecified (principal); G82.20 Paraplegia, unspecified; Z93.3 Colostomy status; R45.851 Suicidal ideations; F41.9 Anxiety disorder, unspecified; F17.200 Nicotine dependence, unspecified, uncomplicated; Z79.82 Long term (current) use of aspirin; Z79.899 Other long term (current) drug therapy; Z91.51 Personal history of suicidal behavior; N31.9 Neuromuscular dysfunction of bladder, unspecified
CPT/HCPCS: 36591; 80053; 80307; 80320; 81001; 84703; 85025; 99285; A4216; G0480

== ENCOUNTER 2024-04-29 00:50 | Emergency (ER) | payer MEDICAID, SELFPAY ==
[2024-04-29 00:52] VITALS: BP 135/66; PULSE 69; RESP 17; TEMP 36.3; O2SAT 98; BMI 38.2
[2024-04-29] MEDS: Ondansetron 4 MG/2 ML Vial IV (01:48)
[2024-04-29] MEDS: 0.9% Normal Saline (1000mL) 1,000 ML 999 ML IV (01:48)
[2024-04-29 02:16] LABS: Anion Gap 8 (5-15); BUN 14 mg/dL (7-18); BUN/Creat Ratio 14.3 RATIO (10-20); Calcium,Total 8.7 mg/dL (8.5-10.1); Chloride 112 mmol/L (98-107); Creatinine, Serum 0.98 mg/dL (0.55-1.02); EST Glomerular Filtration Rate 76 mL/min (>60); Est Glom Filt Rate - Afr Amer 92 mL/min (>60); Estimated Creatinine Clearance 108.83 ml/min; Glucose 121 mg/dL (74-106); Magnesium 1.9 mg/dL (1.6-2.6); Potassium 3.9 mmol/L (3.5-5.1); Sodium Level 140 mmol/L (136-145)
[2024-04-29 02:51] VITALS: BP 125/83; PULSE 85; RESP 15; O2SAT 99
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
[2024-04-29 03:38] VITALS: BP 121/67; PULSE 82; RESP 18; TEMP 37.1; O2SAT 98
[2024-04-29 04:00] VITALS: RESP 16
== END 2024-04-29 05:09 | disposition home or self-care (01) ==
PROVIDERS: Emergency Provider Emergency Medicine; PCP Physician Assistant; Visit Provider Emergency Medicine
DX: R11.2 Nausea with vomiting, unspecified (principal); G82.20 Paraplegia, unspecified; Z93.3 Colostomy status; N31.9 Neuromuscular dysfunction of bladder, unspecified; G90.4 Autonomic dysreflexia; F17.290 Nicotine dependence, other tobacco product, uncomplicated; Z79.01 Long term (current) use of anticoagulants; Z79.899 Other long term (current) drug therapy
CPT/HCPCS: 36591; 80048; 83735; 96361; 96374; 99282; J7030; A4216; J2405

== ENCOUNTER 2024-05-06 15:37 | Emergency (ER) | payer MEDICAID, SELFPAY ==
[2024-05-06 15:48] VITALS: BP 84/53; PULSE 77; RESP 17; TEMP 36.8; O2SAT 97; BMI 37.8
--- NOTE | 2024-05-06 15:54 | CT_ITS ---
INDICATION: decubitus ulcer EXAMINATION: CT PELVIS BONE - CT Pelvis W/ Contrast Injection TECHNIQUE: Routine noncontrast bone CT protocol was performed of the pelvis. 2-D reformats were performed by the technologist. The protocol utilizes one or more of the following dose reduction techniques: automated exposure control, adjustment of mA and/or kV according to patient size,and/or use of iterative reconstruction technique. IV Contrast dosage and agent: None. RADIATION DOSAGE (If Supplied By Facility): CTDIvol = ( 28.12 ) mGy, DLP = ( 1216.94 ) mGycm COMPARISON: FINDINGS: There is a suprapubic catheter in the urinary bladder with wall thickening. Possible bicornuate uterus. Right ovarian cystic lesions up to 1.8 cm. There is a left-sided colostomy. There is dimpling of the skin over the coccygeal region. No subcutaneous emphysema. No drainable collection. Possible resorption or resection of the coccyx. No cortical disruption or destruction at the distal end of the sacrum. CT/Pelvis WITH IV Contrast IMPRESSION: Possible resorption or resection of the coccyx. No cortical disruption or destruction at the distal end of the sacrum. Electronically Signed: Nilesh Adkins DO at 17:27 EDT Reading Location ID and State: [facility] / [place] Tel [phone], Service support ,
--- NOTE | 2024-05-06 15:55 | EDS_ITS ---
HPI History of Present Illness Chief Complaint: Wound Check Informant: patient Narrative Narrative: Patient presents secondary to a decubitus ulcer/rectal wound. She has a decubitus ulcer that has been present since December 2020. Patient states it is recently become more painful with increased drainage. She has not noted a fever. 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 Although she has a Ma catheter in place, she states that it chronically leaks. [facility] Medical History Neurogenic bladder Urinary retention Open wound Depression Excessive bleeding Seizures Indwelling urethral catheter present Former smoker Ureteral calculus Colostomy in place Autonomic dysreflexia New onset seizure Paraplegic spinal paralysis Urinary tract infection Neck fracture Single kidney Double uterus Wounds, multiple Home Medications ?Medication ?Instructions ?Recorded ?Last Taken ?Type aspirin 81 mg tablet,delayed 81 mg PO DAILY heart health 07/17/21 10/27/22 08:00 History release baclofen 20 mg tablet 40 mg PO BID muscle spasms 07/17/21 10/27/22 History 2200 cholecalciferol (vitamin D3) 25 25 mcg PO DAILY supplement 07/17/21 10/27/22 08:00 History mcg (1,000 unit) capsule (Vitamin D3) docusate sodium 100 mg capsule 100 mg PO TID PRN stool softener 07/17/21 10/27/22 08:00 History escitalopram oxalate 20 mg tablet 20 mg PO DAILY depression 07/17/21 10/27/22 08:00 History nitroglycerin 2 % transdermal 1 inch transdermal PRN PRN 07/17/21 Unknown History ointment autonomic dysreflexia methenamine hippurate 1 gram 1 g PO Q12H UTI prevention 09/12/22 10/27/22 22:00 History tablet (Hiprex) nystatin 100,000 unit/gram topical 1 applic topical BID skin 09/12/22 Unknown History powder irritation enoxaparin 40 mg/0.4 mL 40 mg subcut BID 02/10/23 Unknown History subcutaneous syringe polyethylene glycol 3350 17 gram 17 g PO PRN PRN STOOL SOFTENER 02/10/23 Unknown History oral powder packet dicyclomine 10 mg capsule 20 mg (2 x 10 mg) PO Q6H PRN PRN 08/23/23 Unknown Rx abdominal pain #20 CAPSULES ondansetron 4 mg disintegrating 8 mg (2 x 4 mg) PO Q8H PRN PRN 08/23/23 Unknown Rx tablet Nausea #20 tabs captopril 12.5 mg tablet 3.125 mg PO DAILY PRN 10/11/23 Unknown History melatonin 1 mg tablet 2 mg PO QHS 10/11/23 Unknown History oxybutynin chloride 5 mg 5 mg PO DAILY 10/11/23 Unknown History tablet,extended release 24 hr tizanidine 4 mg tablet 4 mg PO Q12H 10/11/23 Unknown History white petrolatum 86.5 % topical 1 applic topical TID #71 grams 11/09/23 Unknown Rx ointment (Critic-Aid Clear) hydrocodone-acetaminophen 5-325mg 1 tab PO Q8H PRN pain 3 days #10 11/13/23 Unknown Rx 5mg-325mg tabs naproxen 500 mg tablet 500 mg PO BID #14 tabs 01/19/24 Unknown Rx penicillin V potassium 250 mg 500 mg (2 x 250 mg) PO 4X/DAY #28 01/19/24 Unknown Rx tablet tabs ondansetron 4 mg disintegrating 4 mg PO TID PRN nausea and 04/29/24 Unknown Rx tablet vomiting #21 tabs ciprofloxacin HCl 500 mg tablet 500 mg PO BID #14 tabs 05/06/24 Unknown Rx (Cipro) Allergy/AdvReac Type Severity Reaction Status Date / Time No Known Allergies Allergy Verified 04/29/24 00:56 Surgical History History of urostomy History of cystoscopy History of colectomy History of urethral stent S/P cervical spinal fusion H/O thumb surgery Social History household members: family Smoking Status: Current every day smoker tobacco type: e-cigarettes alcohol intake: never substance use type: does not use ROS ROS ED Constitutional Constitutional ED: Denies chills or fever(s) Eyes Eyes: Denies discharge from eye(s) ENT ENT ED: Denies discharge from eye(s), rhinorrhea or sore throat Cardiovascular Cardiovascular: Denies chest pain Respiratory/Chest Respiratory/Chest: Denies cough or dyspnea Gastrointestinal Gastrointestinal: Denies abdominal pain, nausea or vomiting Integumentary Reports other Details: Decubitus wound ; Denies Abrasions or rash Neurologic Neurologic: Denies headache(s) or weakness Allergic/Immunologic Allergic/Immunologic ED: Denies lip swelling or urticaria EXAM Physical Exam Const Vital Signs: 05/06/24 15:48 Temperature 98.2 F Temperature Source Oral Pulse Rate 77 Respiratory Rate 17 Blood Pressure 84/53 L Blood Pressure Mean 63 Pulse Ox 97 Oxygen Delivery Method Room Air Positive well nourished and well developed General Appearance ED: well developed HEENT Reports moist mucous membranes Eyes EOMs intact bilaterally Chest Wall inspection of chest normal and palpation of chest normal Resp normal respiratory effort and clear to auscultation bilaterally Cardio regular rate and regular rhythm GI non-tender GI Narrative: Colostomy in place with normal output. No surrounding tenderness. Back/Spine Back/Spine Narrative: Patient has an old scarred wound from a decubitus ulcer superior to the rectum. There is a small open wound within the central portion of the scar measuring 2 x 1 cm. No drainage expressed. Extremity Extremity Narrative: Chronic extremity weakness secondary to paraplegia. Neuro oriented x3 MDM MDM MDM Narrative Medical decision making narrative: IV line established. Patient given IV fluids. Blood pressure is lower here than prior visits, patient does have autonomic dysfunction. This will be closely watched. Labwork obtained to evaluate for leukocytosis, anemia, and electrolyte derangement. CT scan of the pelvis with IV contrast will be obtained to evaluate for any deep extension of the wound. History & Record Review Discussion w/independent historian: Patient Additional record(s) reviewed:: Prior ED visit and Prior labs Lab Data Attestation: I reviewed the patient's lab results. Labs: Laboratory Results - last 24 hr 05/06/24 16:40 WBC 8.0 RBC 3.92 L Hgb 10.6 L Hct 34.2 L MCV 87.2 MCH 27.0 MCHC 31.0 L RDW Std Deviation 45.5 H RDW Coeff of Anurag 14.4 Plt Count 289 MPV 9.9 Immature Gran % (Auto) 0.200 Neut % (Auto) 62.3 Lymph % (Auto) 26.8 Andrew % (Auto) 6.4 Eos % (Auto) 3.6 Baso % (Auto) 0.7 Absolute Neuts (auto) 5.0 Absolute Lymphs (auto) 2.15 Nucleated RBC % 0 Sodium 141 Potassium 4.0 Chloride 110 H Carbon Dioxide 24.0 Anion Gap 7 BUN 18 Creatinine 0.83 Estim Creat Clear Calc 127.60 Est GFR (MDRD) Af Amer 111 Est GFR (MDRD) Non-Af 92 BUN/Creatinine Ratio 21.7 H Glucose 94 Calcium 9.0 Radiography Diagnostic Testing: Clinical Impression(s) from Imaging Studies Pelvis CT 05/06/24 15:54 IMPRESSION: Possible resorption or resection of the coccyx. No cortical disruption or destruction at the distal end of the sacrum. Electronically Signed: Nilesh Adkins DO at 17:27 EDT Reading Location ID and State: [facility] / [place] Tel [phone], Service support , Treatment and Re-Evaluation :: CBC reveals a white count of 8.0 with normal differential. Hemoglobin is 10.6. Chemistry studies unremarkable. Glucose is 94. CT scan of the pelvis reveals possible resorption or resection of the coccyx. No cortical district eruption at the distal end of the sacrum. There is no focal fluid collection or air in the soft tissues. I did review patient's prior wound culture. She had grown Pseudomonas aeruginosa. This was sensitive to Cipro. I will start patient on Cipro but we did obtain a wound culture today. She was advised that if this antibiotic will not cover her wound she will receive a phone call to have her antibiotics changed. I will also refer her to the wound center for follow-up. Discharge Plan Triage Chief Complaint: Wound Check ED Provider: Bethany Saavedra Dx/Rx/DC Orders Clinical Impression: Decubitus ulcer Instructions: ED Wound Check (Infection) Prescriptions: New ciprofloxacin HCl [Cipro] 500 mg tablet 500 mg PO BID Qty: 14 0RF No Action aspirin 81 mg Tablet,Delayed Release (Dr/Ec) 81 mg PO DAILY baclofen 20 mg Tablet 40 mg PO BID nitroglycerin 2 % Ointment 1 inch TRANSDERMAL PRN PRN (Reason: autonomic dysreflexia) cholecalciferol (vitamin D3) [Vitamin D3] 25 mcg (1,000 unit) Capsule 25 mcg PO DAILY docusate sodium 100 mg Capsule 100 mg PO TID PRN (Reason: stool softener) escitalopram oxalate 20 mg Tablet 20 mg PO DAILY methenamine hippurate [Hiprex] 1 gram tablet 1 g PO Q12H Rx Instructions: can be continued indefinitely. For UTI prevention. nystatin 100,000 unit/gram powder 1 applic topical BID enoxaparin 40 mg/0.4 mL syringe 40 mg subcut BID Patient Comments: INJECT 0.4 ML SUBCUTANEOUSLY EVERY 12 HOURS polyethylene glycol 3350 17 gram powder in packet 17 g PO PRN PRN (Reason: STOOL SOFTENER) Rx Instructions: 1 cap full three times a day as needed for constipation, it is OTC tizanidine 4 mg tablet 4 mg PO Q12H Patient Comments: Take 1 tablet by mouth two times a day. oxybutynin chloride 5 mg tablet extended release 24hr 5 mg PO DAILY Patient Comments: Take 1 tablet by mouth once daily. melatonin 1 mg tablet 2 mg PO QHS Patient Comments: Take 2 tablets by mouth daily at bedtime. Take 1 mg at 1200 a.m. and 1 mg at 200 a.m. captopril 12.5 mg tablet 3.125 mg PO DAILY PRN dicyclomine 10 mg capsule 20 mg PO Q6H PRN PRN (Reason: abdominal pain) Qty: 20 0RF ondansetron [ondansetron] 4 mg tablet,disintegrating 8 mg PO Q8H PRN PRN (Reason: Nausea) Qty: 20 0RF Critic-Aid Clear 86.5 % ointment 1 applic topical TID Qty: 71 2RF hydrocodone-acetaminophen 5-325 mg tablet 1 tab PO Q8H PRN (Reason: pain) 3 Days Qty: 10 0RF penicillin V potassium 250 mg tablet 500 mg PO 4X/DAY Qty: 28 0RF naproxen 500 mg tablet 500 mg PO BID Qty: 14 0RF ondansetron 4 mg tablet,disintegrating 4 mg PO TID PRN (Reason: nausea and vomiting) Qty: 21 0RF Primary Care Provider: Taylor Last Referrals: Taylor Last PA [Primary Care Provider] - 1-2 Weeks Wound,Center [Non-Staff] - 1-2 Weeks Print Language: Lao Disposition Disposition: Home, Self Care
[2024-05-06] MEDS: 0.9% Normal Saline (1000mL) 1,000 ML 1000 ML IV (16:30)
[2024-05-06 16:55] LABS: Absolute Lymphocyte Count 2.15 X10^3/uL (0.83-4.51); Basophil# 0.06 X10^3/uL; Basophil% 0.7 % (0-1); Eosinophil# 0.29 X10^3/uL; Eosinophils% 3.6 % (0-5); Hematocrit 34.2 % (37-47); Hemoglobin 10.6 g/dL (12.0-15.0); Lymphocyte # 2.15 X10^3/ul (0.83-4.51); Lymphocyte % 26.8 % (19-41); Mean Corpuscular Volume 87.2 fL (81-99); Mean Platelet Vol. 9.9 fl (6.2-12.0); Monocyte# 0.51 X10^3/uL; Monocyte% 6.4 % (0-10); NRBC Flagged by Analyzer 0 % (0-5); Neutrophil % 62.3 % (47-70); Platelet Count 289 K/mm3 (150-450); RBC Distribution Width CV 14.4 % (11.6-14.6); RBC Distribution Width SD 45.5 fl (35.1-43.9); Red Blood Count 3.92 M/mm3 (4.2-5.4)
[2024-05-06 17:11] LABS: Anion Gap 7 (5-15); BUN 18 mg/dL (7-18); BUN/Creat Ratio 21.7 RATIO (10-20); Chloride 110 mmol/L (98-107); Creatinine, Serum 0.83 mg/dL (0.55-1.02); EST Glomerular Filtration Rate 92 mL/min (>60); Est Glom Filt Rate - Afr Amer 111 mL/min (>60); Glucose 94 mg/dL (74-106); Sodium Level 141 mmol/L (136-145)
[2024-05-06 17:58] VITALS: BP 126/46; PULSE 72; RESP 19; TEMP 37; O2SAT 95
--- NOTE | 2024-05-06 17:59 | NURSING ---
CALLED [facility], ETA 30 MIN
[2024-05-06] MEDS: Ciprofloxacin 500 MG Tablet PO (18:10)
== END 2024-05-06 18:43 | disposition home or self-care (01) ==
PROVIDERS: Emergency Provider Emergency Medicine; PCP Physician Assistant; Visit Provider Emergency Medicine
DX: L89.899 Pressure ulcer of other site, unspecified stage (principal); G82.20 Paraplegia, unspecified; Z79.899 Other long term (current) drug therapy; Z79.82 Long term (current) use of aspirin; F17.290 Nicotine dependence, other tobacco product, uncomplicated; F32.A Depression, unspecified
CPT/HCPCS: 36591; 72193; 80048; 85025; 87070; 87077; 87186; 87205; 96360; 96361; 99284; J7030; Q9967; A4216

== ENCOUNTER 2024-05-21 20:01 | Emergency (ER) | payer MEDICAID, SELFPAY ==
[2024-05-21 20:02] VITALS: BP 133/72; BP 91/58; PULSE 81; PULSE 84; RESP 16; TEMP 36.8; O2SAT 98; BMI 39.7
--- NOTE | 2024-05-21 20:15 | CT_ITS ---
EXAM: CT Pelvis W/O Contrast Injection HISTORY: sacral wound TECHNIQUE: Routine protocol CT pelvis without IV contrast. IV Contrast: None.. Oral contrast: None. RADIATION DOSAGE (If Supplied By Facility): CTDIvol = ( 28.21 ) mGy, DLP = ( 1063.88 ) mGycm Individualized dose optimization techniques were used for this CT. COMPARISON: CT pelvis 05/06/2024. CT abdomen and pelvis 08/22/2023. LIMITATIONS: None. FINDINGS: PERITONEUM: No free air. No free fluid. BOWEL: Colostomy noted left lower quadrant. Surgical clips in the rectosigmoid region. No dilated bowel. APPENDIX: Visualized and unremarkable. No evidence of acute appendicitis. VESSELS: Abdominal aorta is normal caliber. REPRODUCTIVE ORGANS: Uterine didelphys. Small 3.5 cm cyst left ovary. URINARY BLADDER: Decompressed with suprapubic tube in place. Small amount of air in the bladder presumably related to the catheter. ABDOMINAL WALL: Soft tissue thickening with presumed wound overlying the lower sacrum status coccyx extending to the left of midline. This thickening is similar to prior. Very small focal area relatively decreased attenuation at the inferior/left lateral margin of this collection measures approximately 2 x 1.1 cm axial by 1.5 cm craniocaudal. Lack of IV contrast limits evaluation for abscess. Mild adjacent subcutaneous stranding and overlying skin thickening extends bilaterally. No air in the soft tissues. BONES: No acute abnormalities. Blunting of the distal end of the sacrum/coccyx is unchanged compared to priors. The cortex appears intact. CT/Pelvis without IV Contrast IMPRESSION: Sacral wound with a small relatively low attenuation collection possibly early abscess. No acute intrapelvic findings. Electronically Signed: Maureen Kohli MD at 22:45 EDT ,
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
[2024-05-21 21:05] LABS: Anion Gap 3 (5-15); BUN 14 mg/dL (7-18); BUN/Creat Ratio 17.5 RATIO (10-20); Calcium,Total 9.3 mg/dL (8.5-10.1); Chloride 110 mmol/L (98-107); EST Glomerular Filtration Rate 96 mL/min (>60); Est Glom Filt Rate - Afr Amer 116 mL/min (>60); Glucose 82 mg/dL (74-106); Potassium 3.9 mmol/L (3.5-5.1); Sodium Level 139 mmol/L (136-145)
[2024-05-21 21:27] LABS: Absolute Lymphocyte Count 2.02 X10^3/uL (0.83-4.51); Absolute Neutrophil Count 5.8 X10^3/uL (2.0-7.7); Basophil# 0.06 X10^3/uL; Basophil% 0.7 % (0-1); Eosinophil# 0.26 X10^3/uL; Hematocrit 34.6 % (37-47); Hemoglobin 10.7 g/dL (12.0-15.0); Lymphocyte # 2.02 X10^3/ul (0.83-4.51); Lymphocyte % 23.3 % (19-41); Mean Corp Hgb Conc 30.9 g/dL (32-36); Mean Corpuscular Hgb 26.8 pg (27.0-32.0); Mean Corpuscular Volume 86.7 fL (81-99); Monocyte# 0.53 X10^3/uL; Monocyte% 6.1 % (0-10); NRBC Flagged by Analyzer 0 % (0-5); Neutrophil # 5.77 X10^3/uL (2.7-7.7); Neutrophil % 66.6 % (47-70); Platelet Count 363 K/mm3 (150-450); RBC Distribution Width CV 14.3 % (11.6-14.6); RBC Distribution Width SD 45.1 fl (35.1-43.9); Red Blood Count 3.99 M/mm3 (4.2-5.4); White Blood Count 8.7 K/mm3 (4.4-11.0)
[2024-05-21] MEDS: 0.9% Normal Saline (500mL Bag) 500 ML 1000 ML IV (21:38)
[2024-05-21] MEDS: fentaNYL 100 MCG/2 ML Ampul 50 MCG IV (21:38)
[2024-05-21 22:02] VITALS: BP 132/76; PULSE 81; RESP 16; O2SAT 98
[2024-05-21] MEDS: Smz/Tmp Ds Tablet 1 TABLET PO (23:30)
[2024-05-21] MEDS: Cephalexin 250 MG Capsule 500 MG PO (23:31)
== END 2024-05-22 00:46 | disposition home or self-care (01) ==
PROVIDERS: Emergency Provider Emergency Medicine; PCP Family Medicine; Visit Provider Emergency Medicine
DX: L89.153 Pressure ulcer of sacral region, stage 3 (principal); G82.20 Paraplegia, unspecified; F17.290 Nicotine dependence, other tobacco product, uncomplicated; Z79.82 Long term (current) use of aspirin; Z79.01 Long term (current) use of anticoagulants; Z79.899 Other long term (current) drug therapy
CPT/HCPCS: 72192; 80048; 85025; 96374; 99283; A4216

== ENCOUNTER 2024-06-11 21:08 | Emergency (ER) | payer MEDICAID, SELFPAY ==
[2024-06-11 21:09] VITALS: BP 163/102; PULSE 94; PULSE 99; RESP 14; TEMP 36.9; O2SAT 97; O2SAT 98; BMI 38.0
[2024-06-11 23:56] LABS: Mucous, Urine 0 SEEN /hpf (<or=2+)
[2024-06-12] LABS: Color, Urine Brown (Yellow); Glucose, Dipstick Normal (Normal); Ketone-Dipstick Negative (Negative); Leukocyte Esterase-Dipstick 500 /ul (Negative); Nitrite-Dipstick Negative (Negative); Occult Blood-Urine 250 /ul (Negative); Protein-Dipstick 100 mg/dl (Negative); Specific Gravity, Urine 1.015 (1.002-1.030); Urine Bilirubin Dipstick Negative (Negative); Urine Clarity Turbid (Clear); Urine Urobilinogen Normal (Normal)
[2024-06-12 00:19] LABS: Bacteria 3+ /hpf (None Seen); Red Blood Cells-Urine 5-10 SEEN /hpf (0-5); Squamous Epithelial Cells - UA 5-10 SEEN /hpf (5-10); Triple Phosphate Crystals Ur 2+ /hpf (<or=1+); White Blood Cells 5-10 SEEN /hpf (0-5)
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
[2024-06-12 01:08] VITALS: BP 158/66; PULSE 67; RESP 18; O2SAT 98
[2024-06-12 01:17] VITALS: BP 168/96; PULSE 94; RESP 16; TEMP 36.6; O2SAT 98
[2024-06-12 05:00] VITALS: BP 135/81; BP 150/61; PULSE 65; PULSE 67; RESP 18; O2SAT 97; O2SAT 98
== END 2024-06-12 07:48 | disposition home or self-care (01) ==
PROVIDERS: Emergency Provider Emergency Medicine; PCP Family Medicine; Visit Provider Emergency Medicine
DX: R32 Unspecified urinary incontinence (principal); N31.9 Neuromuscular dysfunction of bladder, unspecified; S14.109S Unspecified injury at unspecified level of cervical spinal cord, sequela; V49.9XXS Car occupant (driver) (passenger) injured in unspecified traffic accident, sequela; F17.290 Nicotine dependence, other tobacco product, uncomplicated; N28.89 Other specified disorders of kidney and ureter
CPT/HCPCS: 81001; 99282

== ENCOUNTER 2024-06-14 23:26 | Emergency (ER) | payer MEDICAID, SELFPAY ==
[2024-06-14 23:28] VITALS: BP 131/76; PULSE 72; RESP 12; TEMP 36.8; O2SAT 97; BMI 38.4
--- NOTE | 2024-06-14 23:42 | RAD_ITS ---
INDICATION: COUGH EXAMINATION/TECHNIQUE: X-RAY - XR Chest 1 View COMPARISON: CR Chest, Sep 12 2022 7:28pm FINDINGS: LINES/DEVICES: Mediport on the right. LUNGS: No consolidation, edema or effusion. No pneumothorax. MEDIASTINUM AND CARDIOVASCULAR STRUCTURES: Cardiac silhouette not enlarged. Central airways and mediastinal contour are unremarkable. BONES AND SOFT TISSUES: Unremarkable. RAD/Chest 1 View (Portable) IMPRESSION: No radiographic evidence of acute cardiopulmonary disease. Electronically Signed: Chante Johnson MD at 0:03 EDT ,
[2024-06-14] MEDS: Benzonatate 100 MG Capsule 200 MG PO (23:56)
--- NOTE | 2024-06-15 00:49 | EDS_ITS ---
HPI History of Present Illness Chief Complaint: Cold Sx Informant: patient and EMS Narrative Narrative: Patient is a 23-year-old female with history of paraplegia and autonomic dysreflexia. She was seen a few days ago secondary to suprapubic catheter malfunction. She states that she awoke around 6 in the morning on Friday and had congestion and cough. She states she has had persistent symptoms throughout the day and she is concern for potential infection with this and therefore comes in for evaluation. [facility] Medical History Neurogenic bladder Urinary retention Open wound Depression Excessive bleeding Seizures Indwelling urethral catheter present Former smoker Ureteral calculus Colostomy in place Autonomic dysreflexia New onset seizure Paraplegic spinal paralysis Urinary tract infection Neck fracture Single kidney Double uterus Wounds, multiple Home Medications ?Medication ?Instructions ?Recorded ?Last Taken ?Type aspirin 81 mg tablet,delayed 81 mg PO DAILY heart health 07/17/21 10/27/22 08:00 History release baclofen 20 mg tablet 40 mg PO BID muscle spasms 07/17/21 10/27/22 History 2200 cholecalciferol (vitamin D3) 25 25 mcg PO DAILY supplement 07/17/21 10/27/22 08:00 History mcg (1,000 unit) capsule (Vitamin D3) docusate sodium 100 mg capsule 100 mg PO TID PRN stool softener 07/17/21 10/27/22 08:00 History escitalopram oxalate 20 mg tablet 20 mg PO DAILY depression 07/17/21 10/27/22 08:00 History nitroglycerin 2 % transdermal 1 inch transdermal PRN PRN 07/17/21 Unknown History ointment autonomic dysreflexia methenamine hippurate 1 gram 1 g PO Q12H UTI prevention 09/12/22 10/27/22 22:00 History tablet (Hiprex) nystatin 100,000 unit/gram topical 1 applic topical BID skin 09/12/22 Unknown History powder irritation enoxaparin 40 mg/0.4 mL 40 mg subcut BID 02/10/23 Unknown History subcutaneous syringe polyethylene glycol 3350 17 gram 17 g PO PRN PRN STOOL SOFTENER 02/10/23 Unknown History oral powder packet dicyclomine 10 mg capsule 20 mg (2 x 10 mg) PO Q6H PRN PRN 08/23/23 Unknown Rx abdominal pain #20 CAPSULES ondansetron 4 mg disintegrating 8 mg (2 x 4 mg) PO Q8H PRN PRN 08/23/23 Unknown Rx tablet Nausea #20 tabs captopril 12.5 mg tablet 3.125 mg PO DAILY PRN 10/11/23 Unknown History melatonin 1 mg tablet 2 mg PO QHS 10/11/23 Unknown History oxybutynin chloride 5 mg 5 mg PO DAILY 10/11/23 Unknown History tablet,extended release 24 hr tizanidine 4 mg tablet 4 mg PO Q12H 10/11/23 Unknown History white petrolatum 86.5 % topical 1 applic topical TID #71 grams 11/09/23 Unknown Rx ointment (Critic-Aid Clear) hydrocodone-acetaminophen 5-325mg 1 tab PO Q8H PRN pain 3 days #10 11/13/23 Unknown Rx 5mg-325mg tabs naproxen 500 mg tablet 500 mg PO BID #14 tabs 01/19/24 Unknown Rx penicillin V potassium 250 mg 500 mg (2 x 250 mg) PO 4X/DAY #28 01/19/24 Unknown Rx tablet tabs ondansetron 4 mg disintegrating 4 mg PO TID PRN nausea and 04/29/24 Unknown Rx tablet vomiting #21 tabs ciprofloxacin HCl 500 mg tablet 500 mg PO BID #14 tabs 05/06/24 Unknown Rx (Cipro) cephalexin 500 mg capsule 500 mg PO Q6 #20 CAPSULES 05/21/24 Unknown Rx oxycodone-acetaminophen 5 mg-325 1 tab PO Q6H PRN PRN Pain 3 days 05/21/24 Un known Rx mg tablet #12 TABLETS sulfamethoxazole 800 1 tab PO BID #10 TABLETS 05/21/24 Unknown Rx mg-trimethoprim 160 mg tablet azelastine 137 mcg (0.1 %) nasal 2 spray intranasal BID #30 mL 06/15/24 Unknown Rx spray benzonatate 200 mg capsule 200 mg PO TID PRN cough #30 caps 06/15/24 Unknown Rx dexamethasone 6 mg tablet 6 mg PO DAILY 10 days #10 tabs 06/15/24 Unknown Rx Allergy/AdvReac Type Severity Reaction Status Date / Time No Known Allergies Allergy Verified 06/11/24 21:11 Surgical History History of urostomy History of cystoscopy History of colectomy History of urethral stent S/P cervical spinal fusion H/O thumb surgery Social History household members: family Smoking Status: Current every day smoker tobacco type: e-cigarettes alcohol intake: never substance use type: does not use ROS ROS ED Constitutional Constitutional ED: Denies chills or fever(s) ENT ENT ED: Reports rhinorrhea and sore throat Cardiovascular Cardiovascular: Denies chest pain Respiratory/Chest Respiratory/Chest: Reports cough; Denies dyspnea Gastrointestinal Gastrointestinal: Denies abdominal pain, diarrhea, nausea or vomiting Musculoskeletal Musculoskeletal: Reports myalgias Integumentary Denies rash Neurologic Neurologic: Reports headache(s) Hematologic/Lymphatic Hematologic/Lymphatic: Reports easy bleeding and easy bruising EXAM Physical Exam Const Vital Signs: 06/14/24 23:28 06/14/24 23:30 06/15/24 01:29 Temperature 98.3 F 98.1 F Temperature Source Temporal Pulse Rate 72 94 Respiratory Rate 12 18 Respiratory Effort Normal Non-Labored Respiratory Pattern Normal Blood Pressure 131/76 H 99/53 L Blood Pressure Mean 94 68 Pulse Ox 97 96 Oxygen Delivery Method Room Air Positive well nourished and well developed General Appearance ED: well developed; Negative for pallor HEENT HEENT Narrative: Bilateral TMs are retracted but show no secondary findings to suggest infection Nasal mucosa is hyperemic and boggy with enlarged inferior nasal turbinates There is cobblestoning in the posterior pharynx consistent with sinus drainage without airway edema or compromise No secondary findings in the posterior pharynx to suggest infection Eyes PERRL and EOMs intact bilaterally General Eye ED: Negative for scleral icterus Neck supple Neck Narrative: No nuchal rigidity or meningeal signs noted Positive anterior cervical lymphadenopathy Resp normal respiratory effort and clear to auscultation bilaterally Resp Narrative: No nasal flaring retractions tachypnea or accessory muscle use Cardio regular rate and regular rhythm Extremity Extremity Narrative: Chronic changes secondary to history of paraplegia Neuro oriented x3 and CN's II-XII intact bilaterally Sensorium / Orientation: alert Psych mental status grossly normal Skin no rashes or lesions noted General Skin Exam: Negative for jaundice or pallor MDM MDM MDM Narrative Medical decision making narrative: Patient arrived to the ER with stable vitals and no acute respiratory distress. She reported essentially 1 days worth of myalgias with headache and congestion and cough. Differential diagnosis is for influenza versus RSV versus COVID versus rhinovirus versus pneumonia. An x-ray was obtained secondary to this and reveals no signs of acute lung pathology. Viral swab was also ordered and is positive for COVID. This correlates with the patient's symptom profile. The patient is not hypoxic or in respiratory distress she is not showing signs of systemic infection and therefore there is no need for admission and she can be discharged home with symptomatic care History & Record Review Discussion w/independent historian: EMS personnel and Patient Radiography Diagnostic Testing: Clinical Impression(s) from Imaging Studies Chest X-Ray 06/14/24 23:42 IMPRESSION: No radiographic evidence of acute cardiopulmonary disease. Electronically Signed: Chante Johnson MD at 0:03 EDT , Chest x-ray as interpreted by the emergency medicine physician reveals no acute infiltrate pneumothorax or pleural effusion Discharge Plan Triage Chief Complaint: Cold Sx ED Provider: Felton Garcia Dx/Rx/DC Orders Clinical Impression: COVID-19, Neurogenic bladder, Autonomic dysreflexia, Paraplegia Instructions: Coronavirus Disease 2019 (COVID-19): Caring for Yourself or Others Prescriptions: New azelastine 137 mcg (0.1 %) spray,non-aerosol 2 spray intranasal BID Qty: 30 0RF Rx Instructions: administer into each nostril benzonatate 200 mg capsule 200 mg PO TID PRN (Reason: cough) Qty: 30 0RF dexamethasone 6 mg tablet 6 mg PO DAILY 10 Days Qty: 10 0RF No Action aspirin 81 mg Tablet,Delayed Release (Dr/Ec) 81 mg PO DAILY baclofen 20 mg Tablet 40 mg PO BID nitroglycerin 2 % Ointment 1 inch TRANSDERMAL PRN PRN (Reason: autonomic dysreflexia) cholecalciferol (vitamin D3) [Vitamin D3] 25 mcg (1,000 unit) Capsule 25 mcg PO DAILY docusate sodium 100 mg Capsule 100 mg PO TID PRN (Reason: stool softener) escitalopram oxalate 20 mg Tablet 20 mg PO DAILY methenamine hippurate [Hiprex] 1 gram tablet 1 g PO Q12H Rx Instructions: can be continued indefinitely. For UTI prevention. nystatin 100,000 unit/gram powder 1 applic topical BID enoxaparin 40 mg/0.4 mL syringe 40 mg subcut BID Patient Comments: INJECT 0.4 ML SUBCUTANEOUSLY EVERY 12 HOURS polyethylene glycol 3350 17 gram powder in packet 17 g PO PRN PRN (Reason: STOOL SOFTENER) Rx Instructions: 1 cap full three times a day as needed for constipation, it is OTC tizanidine 4 mg tablet 4 mg PO Q12H Patient Comments: Take 1 tablet by mouth two times a day. oxybutynin chloride 5 mg tablet extended release 24hr 5 mg PO DAILY Patient Comments: Take 1 tablet by mouth once daily. melatonin 1 mg tablet 2 mg PO QHS Patient Comments: Take 2 tablets by mouth daily at bedtime. Take 1 mg at 1200 a.m. and 1 mg at 200 a.m. captopril 12.5 mg tablet 3.125 mg PO DAILY PRN dicyclomine 10 mg capsule 20 mg PO Q6H PRN PRN (Reason: abdominal pain) Qty: 20 0RF ondansetron [ondansetron] 4 mg tablet,disintegrating 8 mg PO Q8H PRN PRN (Reason: Nausea) Qty: 20 0RF Critic-Aid Clear 86.5 % ointment 1 applic topical TID Qty: 71 2RF hydrocodone-acetaminophen 5-325 mg tablet 1 tab PO Q8H PRN (Reason: pain) 3 Days Qty: 10 0RF penicillin V potassium 250 mg tablet 500 mg PO 4X/DAY Qty: 28 0RF naproxen 500 mg tablet 500 mg PO BID Qty: 14 0RF ciprofloxacin HCl [Cipro] 500 mg tablet 500 mg PO BID Qty: 14 0RF ondansetron 4 mg tablet,disintegrating 4 mg PO TID PRN (Reason: nausea and vomiting) Qty: 21 0RF sulfamethoxazole-trimethoprim 800-160 mg tablet 1 tab PO BID Qty: 10 0RF oxycodone-acetaminophen 5-325 mg tablet 1 tab PO Q6H PRN PRN (Reason: Pain) 3 Days Qty: 12 0RF cephalexin 500 mg capsule 500 mg PO Q6 Qty: 20 0RF Primary Care Provider: Dao Paulino Referrals: Dao Paulino MD [Primary Care Provider] - Activity Restrictions/Additional Instructions: You tested positive for COVID-19 however your vitals are stable and your x-ray reveals no pneumonia. Take the prescribed medications as directed to help control your symptoms and return to the ER should you have any further concerns Print Language: Swazi Disposition Disposition: Home, Self Care Discharge Date/Time: 06/15/24 03:08
[2024-06-15 01:29] VITALS: BP 99/53; PULSE 94; RESP 18; TEMP 36.7; O2SAT 96
== END 2024-06-15 03:08 | disposition home or self-care (01) ==
PROVIDERS: Emergency Provider Emergency Medicine; PCP Family Medicine; Visit Provider Emergency Medicine
DX: U07.1 COVID-19 (principal); G82.20 Paraplegia, unspecified; N31.9 Neuromuscular dysfunction of bladder, unspecified; G90.4 Autonomic dysreflexia; F17.200 Nicotine dependence, unspecified, uncomplicated; Z79.82 Long term (current) use of aspirin; Z79.899 Other long term (current) drug therapy
CPT/HCPCS: 71045; 87631; 99282

== ENCOUNTER 2024-06-24 18:56 | Emergency (ER) | payer MEDICAID, SELFPAY ==
[2024-06-24 18:57] VITALS: BP 119/71; PULSE 80; RESP 16; TEMP 36.6; O2SAT 98; BMI 38.3
[2024-06-24 18:59] VITALS: BP 112/82; PULSE 95; RESP 16; TEMP 36.6; O2SAT 98
--- NOTE | 2024-06-24 19:55 | CT_ITS ---
EXAM: CT ABDOMEN AND PELVIS WITH INTRAVENOUS CONTRAST CLINICAL INDICATION: decubitus ulcer TECHNIQUE: Helically acquired images were obtained of the abdomen and pelvis with intravenous contrast. This CT exam was performed using one or more of the following dose reduction techniques: automated exposure control, adjustment of the mA and/or kV according to patient size, and/or use of iterative reconstruction technique. CONTRAST: IV 100mL Isovue-300 COMPARISON: CT pelvis, 05/21/[address] abdomen and pelvis, 08/20/2023. FINDINGS: LOWER THORAX: Minimal dependent atelectasis in the bilateral lungs. No cardiomegaly. No significant pericardial effusion. ABDOMEN: LIVER: No significant abnormality. Homogeneous. No focal mass. GALLBLADDER AND BILE DUCTS: No significant abnormality. No calcified gallstones. No gallbladder distention or wall edema. No intra- or extrahepatic biliary ductal dilation. PANCREAS: No significant abnormality. No focal cystic or solid mass. SPLEEN: No significant abnormality. Normal size without focal cystic or solid mass. ADRENALS: No significant abnormality. No nodules. KIDNEYS AND URETERS: Status post right nephrectomy. Left upper pole calyceal stone measuring 2 mm without evidence of hydronephrosis or additional urolithiasis. STOMACH AND BOWEL: There is a Griffin''s pouch with partial distal colectomy and left lower quadrant colostomy. No stomach or bowel distention. PELVIS: APPENDIX: A normal appendix is identified in the right lower quadrant. BLADDER: Suprapubic urinary catheter. Urinary bladder air or related to catheterization. REPRODUCTIVE: Normal as visualized. No mass. ABDOMEN and PELVIS: INTRAPERITONEAL SPACE: No significant abnormality. No ascites or other fluid collection. No free air. BONES/JOINTS: Status post distal sacral resection and coccygectomy. [place] left spinal curvature with degenerative changes in the spine. No suspicious lytic or blastic abnormality. SOFT TISSUES: Sacral decubitus ulcer with soft tissue thickening extending to the sacrum. The region involved measures up to 6 cm in width and 5 cm craniocaudal. Fat-containing umbilical hernia. VASCULATURE: No significant abnormality. Abdominal aorta is non-dilated. LYMPH NODES: No significant abnormality. No enlarged lymph nodes. CT/Abdomen/Pelvis W IV Cont ONLY IMPRESSION: 1. Status post right nephrectomy. 2. Sacral decubitus ulcer with soft tissue thickening extending to the sacrum. The region involved measures up to 6 cm in width and 5 cm craniocaudal. This appears more extensive than the prior examination. 3. Status post distal sacral resection and coccygectomy. 4. There is a Griffin''s pouch with partial distal colectomy and left lower quadrant colostomy. 5. Left upper pole calyceal stone measuring 2 mm without evidence of hydronephrosis or additional urolithiasis. Electronically Signed: Jose Martin DO at 22:07 EDT ,
[2024-06-24 19:59] VITALS: BP 131/98; PULSE 98; RESP 16; TEMP 36.1; O2SAT 98
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
[2024-06-24 20:23] VITALS: BP 131/98; PULSE 97; RESP 16; TEMP 36.2; O2SAT 98
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
[2024-06-24] MEDS: Morphine 4 MG/ML Syringe IV (20:44)
[2024-06-24] MEDS: 0.9% Normal Saline (1000mL) 1,000 ML 999 ML IV ×2 (20:44→22:06)
[2024-06-24] MEDS: Ondansetron 4 MG/2 ML Vial IV (20:44)
[2024-06-24 20:45] LABS: Absolute Lymphocyte Count 2.82 X10^3/uL (0.83-4.51); Absolute Neutrophil Count 7.5 X10^3/uL (2.0-7.7); Basophil# 0.02 X10^3/uL; Basophil% 0.2 % (0-1); Eosinophil# 0.23 X10^3/uL; Eosinophils% 2.1 % (0-5); Hematocrit 37.4 % (37-47); Hemoglobin 11.7 g/dL (12.0-15.0); Lymphocyte # 2.82 X10^3/ul (0.83-4.51); Lymphocyte % 25.8 % (19-41); Mean Corp Hgb Conc 31.3 g/dL (32-36); Mean Corpuscular Hgb 25.3 pg (27.0-32.0); Monocyte% 2.7 % (0-10); NRBC Flagged by Analyzer 0 % (0-5); Neutrophil # 7.51 X10^3/uL (2.7-7.7); Neutrophil % 68.9 % (47-70); Platelet Count 335 K/mm3 (150-450); RBC Distribution Width CV 13.9 % (11.6-14.6); RBC Distribution Width SD 40.6 fl (35.1-43.9); Red Blood Count 4.62 M/mm3 (4.2-5.4); White Blood Count 10.9 K/mm3 (4.4-11.0)
[2024-06-24 20:58] LABS: Anion Gap 6 (5-15); BUN 20 mg/dL (7-18); BUN/Creat Ratio 23.2 RATIO (10-20); Calcium,Total 8.8 mg/dL (8.5-10.1); Chloride 110 mmol/L (98-107); Creatinine, Serum 0.86 mg/dL (0.55-1.02); EST Glomerular Filtration Rate 88 mL/min (>60); Est Glom Filt Rate - Afr Amer 106 mL/min (>60); Estimated Creatinine Clearance 124.22 ml/min; Glucose 114 mg/dL (74-106); Potassium 3.5 mmol/L (3.5-5.1); Sodium Level 141 mmol/L (136-145)
[2024-06-24 21:23] VITALS: BP 134/61; PULSE 97; RESP 16; TEMP 36.3; O2SAT 98
[2024-06-24 22:12] LABS: Mucous, Urine 0 SEEN /hpf (<or=2+)
[2024-06-24 22:14] LABS: Color, Urine Yellow (Yellow); Glucose, Dipstick Normal (Normal); Ketone-Dipstick Negative (Negative); Leukocyte Esterase-Dipstick 500 /ul (Negative); Nitrite-Dipstick Negative (Negative); Occult Blood-Urine 250 /ul (Negative); Protein-Dipstick 30 mg/dl (Negative); Urine Bilirubin Dipstick Negative (Negative); Urine Clarity Sl. Cloudy (Clear); Urine Urobilinogen Normal (Normal)
[2024-06-24 22:23] VITALS: BP 117/60; PULSE 91; RESP 16; TEMP 36.4; O2SAT 98
[2024-06-24 22:34] LABS: Red Blood Cells-Urine 25-50 SEEN /hpf (0-5)
[2024-06-24 22:37] LABS: White Blood Cells 10-25 SEEN /hpf (0-5)
[2024-06-24 22:38] LABS: Bacteria 3+ /hpf (None Seen); Squamous Epithelial Cells - UA 0-5 SEEN /hpf (5-10)
[2024-06-24] MEDS: Ciprofloxacin 500 MG Tablet PO (23:13)
== END 2024-06-24 23:16 | disposition home or self-care (01) ==
PROVIDERS: Emergency Provider Student in an Organized Health Care Education/Training Program; PCP Family Medicine; Visit Provider Student in an Organized Health Care Education/Training Program
DX: L03.312 Cellulitis of back [any part except buttock and flank] (principal); G82.20 Paraplegia, unspecified; Z93.3 Colostomy status; L89.159 Pressure ulcer of sacral region, unspecified stage; R11.0 Nausea; F17.290 Nicotine dependence, other tobacco product, uncomplicated; Z79.01 Long term (current) use of anticoagulants; Z79.82 Long term (current) use of aspirin; Z79.899 Other long term (current) drug therapy; Z86.14 Personal history of Methicillin resistant Staphylococcus aureus infection
CPT/HCPCS: 74177; 80048; 81001; 85025; 87077; 87086; 87088; 87186; 96361; 96374; 96375; 99282; J7030; Q9967; A4216; J2405

== ENCOUNTER 2024-06-27 18:49 | Emergency (ER) | payer MEDICAID, SELFPAY ==
[2024-06-27] VITALS (20 sets, daily range): BP systolic 87–122; BP diastolic 38–76; PULSE 60–95; RESP 1–16; TEMP 35.7–36.7; O2SAT 93–98; BMI 37.3
--- NOTE | 2024-06-27 18:55 | EDS_ITS ---
HPI <TALIB Mcknight - Last Filed: 06/27/24 21:47> History of Present Illness Chief Complaint: Hypotension Narrative Narrative: Patient is a 23-year-old female with history of spinal injury who is a paraplegic, has history of Autonomic dysreflexia. Patient also has history of headaches, nausea, indwelling catheter, as well as colostomy presenting to the emergency department for low blood pressure. Per the mother, the patient has periods where her blood pressure gets extremely high, she gets red in the face, and they give her a captopril. Today, the mother saw the patient's face getting red, she believed that the blood pressure was being elevated, they then gave her a captopril one fourth dose, her blood pressure then became low, she became pale, and some nausea and vomiting. Secondary to this, they did refer her to the emergency department. Patient was seen here 3 days ago, this was for a chronic wound who she is currently on ciprofloxacin. She denies any fever or chills. PFS <TALIB Mcknight - Last Filed: 06/27/24 21:47> [facility] Medical History Neurogenic bladder Urinary retention Open wound Depression Excessive bleeding Seizures Indwelling urethral catheter present Former smoker Ureteral calculus Colostomy in place Autonomic dysreflexia New onset seizure Paraplegic spinal paralysis Urinary tract infection Neck fracture Single kidney Double uterus Wounds, multiple Home Medications ?Medication ?Instructions ?Recorded ?Last Taken ?Type aspirin 81 mg tablet,delayed 81 mg PO DAILY heart health 07/17/21 10/27/22 08:00 History release baclofen 20 mg tablet 40 mg PO BID muscle spasms 07/17/21 10/27/22 History 2200 cholecalciferol (vitamin D3) 25 25 mcg PO DAILY supplement 07/17/21 10/27/22 08:00 History mcg (1,000 unit) capsule (Vitamin D3) docusate sodium 100 mg capsule 100 mg PO TID PRN stool softener 07/17/21 10/27/22 08:00 History escitalopram oxalate 20 mg tablet 20 mg PO DAILY depression 07/17/21 10/27/22 08:00 History nitroglycerin 2 % transdermal 1 inch transdermal PRN PRN 07/17/21 Unknown History ointment autonomic dysreflexia methenamine hippurate 1 gram 1 g PO Q12H UTI prevention 09/12/22 10/27/22 22:00 History tablet (Hiprex) nystatin 100,000 unit/gram topical 1 applic topical BID skin 09/12/22 Unknown History powder irritation enoxaparin 40 mg/0.4 mL 40 mg subcut BID 02/10/23 Unknown History subcutaneous syringe polyethylene glycol 3350 17 gram 17 g PO PRN PRN STOOL SOFTENER 02/10/23 Unknown History oral powder packet dicyclomine 10 mg capsule 20 mg (2 x 10 mg) PO Q6H PRN PRN 08/23/23 Unknown Rx abdominal pain #20 CAPSULES ondansetron 4 mg disintegrating 8 mg (2 x 4 mg) PO Q8H PRN PRN 08/23/23 Unknown Rx tablet Nausea #20 tabs captopril 12.5 mg tablet 3.125 mg PO DAILY PRN 10/11/23 Unknown History melatonin 1 mg tablet 2 mg PO QHS 10/11/23 Unknown History oxybutynin chloride 5 mg 5 mg PO DAILY 10/11/23 Unknown History tablet,extended release 24 hr tizanidine 4 mg tablet 4 mg PO Q12H 10/11/23 Unknown History white petrolatum 86.5 % topical 1 applic topical TID #71 grams 11/09/23 Unknown Rx ointment (Critic-Aid Clear) hydrocodone-acetaminophen 5-325mg 1 tab PO Q8H PRN pain 3 days #10 11/13/23 Unknown Rx 5mg-325mg tabs naproxen 500 mg tablet 500 mg PO BID #14 tabs 01/19/24 Unknown Rx penicillin V potassium 250 mg 500 mg (2 x 250 mg) PO 4X/DAY #28 01/19/24 Unknown Rx tablet tabs ondansetron 4 mg disintegrating 4 mg PO TID PRN nausea and 04/29/24 Unknown Rx tablet vomiting #21 tabs cephalexin 500 mg capsule 500 mg PO Q6 #20 CAPSULES 05/21/24 Unknown Rx oxycodone-acetaminophen 5 mg-325 1 tab PO Q6H PRN PRN Pain 3 days 05/21/24 Unknown Rx mg tablet #12 TABLETS sulfamethoxazole 800 1 tab PO BID #10 TABLETS 05/21/24 Unknown Rx mg-trimethoprim 160 mg tablet azelastine 137 mcg (0.1 %) nasal 2 spray intranasal BID #30 mL 06/15/24 Unknown Rx spray benzonatate 200 mg capsule 200 mg PO TID PRN cough #30 caps 06/15/24 Unknown Rx dexamethasone 6 mg tablet 6 mg PO DAILY 10 days #10 tabs 06/15/24 Unknown Rx ciprofloxacin HCl 500 mg tablet 500 mg PO BID #14 TABLETS 06/24/24 Unknown Rx doxycycline hyclate 100 mg capsule 100 mg PO BID #20 caps 06/24/24 Unknown Rx Allergy/AdvReac Type Severity Reaction Status Date / Time No Known Allergies Allergy Verified 06/11/24 21:11 Surgical History History of urostomy History of cystoscopy History of colectomy History of urethral stent S/P cervical spinal fusion H/O thumb surgery Social History household members: family Smoking Status: Current every day smoker tobacco type: e-cigarettes alcohol intake: never substance use type: does not use ROS <TALIB Mcknight - Last Filed: 06/27/24 21:47> ROS ED ROS Narrative Constitutional: Negative for fever, chills, weight loss, weakness Eyes: Negative for vision loss, vision change, double vision ENT: Negative for any sore throat, ear pain, congestion Cardiovascular: Negative for any chest pain, tightness, palpitations Respiratory: Negative for any cough, sputum production, hemoptysis, dyspnea, dyspnea on exertion, orthopnea Gastrointestinal: Negative for any abdominal pain,diarrhea, constipation, blood in stool, blood in vomit. Positive for nausea and vomiting : Negative for any urinary frequency, dysuria, retention, blood in urine Muscle skeletal: Negative for any neck pain, back pain Neurological: Negative for any syncope, dizziness. Positive for back pain Skin: Negative for any rashes, itching, abrasions, lacerations Psychiatric: Negative for any depression, anxiety, stress, suicidal ideation, homicidal ideation Hematologic: Negative for any excessive bruising, easy bleeding EXAM <TALIB Mcknight - Last Filed: 06/27/24 21:47> Physical Exam Narrative Exam Narrative: Vital signs reviewed. Patient had a blood pressure of 90/50 on arrival. Patient alert and orient x 4. HEET: Head normocephalic atraumatic, TMs clear bilaterally. Posterior pharynx is clear, dry mucous membranes. Nares clear bilaterally. Neck: Supple with no lymphadenopathy or tenderness. No signs of meningismus. Cardiac: Regular rate and rhythm no murmurs gallops or rubs, equal peripheral pulses bilaterally. Respiratory: Lungs clear to auscultation bilaterally. No chest tenderness. Abdomen: Soft, nontender, nondistended. No abdominal bruit or pulsatile masses. No hepatosplenomegaly. Patient had colostomy with brown solid stool Extremities: No peripheral edema, no signs of gross trauma or deformity. Active full range of motion of all extremities. Neuro: Cranial nerves II through XII intact, no focal neurological deficits. Skin: Clean dry and intact with no rash, purpura, petechiae, vesicles or pustules. I did roll the patient over, I did look at the sacral wound, it looks well-appearing. No significant cellulitis, there is no significant drainage. There is some granulation tissue. Backs/flank: No CVA tenderness, no midline spinal tenderness, no deformity. Psych: Normal mood and affect. No SI, HI or acute psychosis. Const Vital Signs: 06/27/24 18:51 06/27/24 19:12 06/27/24 19:16 Temperature 96.2 F L Temperature Source Temporal Pulse Rate 77 81 Respiratory Rate 1 L 16 Respiratory Effort Normal Respiratory Pattern Normal Blood Pressure 88/38 L 98/70 Blood Pressure Mean 54 79 Pulse Ox 98 93 Oxygen Delivery Method Room Air Room Air 06/27/24 19:59 06/27/24 20:04 06/27/24 20:05 Temperature 97.8 F Temperature Source Oral Pulse Rate 60 Respiratory Rate 16 Respiratory Effort Respiratory Pattern Blood Pressure 93/56 L 93/55 L Blood Pressure Mean 68 65 Pulse Ox 96 95 96 Oxygen Delivery Method Room Air 06/27/24 20:30 06/27/24 20:45 06/27/24 21:00 Temperature Temperature Source Pulse Rate Respiratory Rate Respiratory Effort Respiratory Pattern Blood Pressure 97/46 L 98/55 L 102/56 L Blood Pressure Mean 60 69 69 Pulse Ox 96 97 96 Oxygen Delivery Method 06/27/24 21:20 Temperature 97.0 F L Temperature Source Oral Pulse Rate 95 Respiratory Rate 16 Respiratory Effort Respiratory Pattern Blood Pressure 105/57 L Blood Pressure Mean 73 Pulse Ox 96 Oxygen Delivery Method Room Air Positive obese Nutritional Appearance: obese <Dr. Hermelindo Mckenna MD - Last Filed: 06/27/24 20:53> Physical Exam Const Vital Signs: 06/27/24 18:51 06/27/24 19:12 06/27/24 19:16 Temperature 96.2 F L Temperature Source Temporal Pulse Rate 77 81 Respiratory Rate 1 L 16 Respiratory Effort Normal Respiratory Pattern Normal Blood Pressure 88/38 L 98/70 Blood Pressure Mean 54 79 Pulse Ox 98 93 Oxygen Delivery Method Room Air Room Air 06/27/24 19:59 06/27/24 20:04 06/27/24 20:05 Temperature 97.8 F Temperature Source Oral Pulse Rate 60 Respiratory Rate 16 Respiratory Effort Respiratory Pattern Blood Pressure 93/56 L 93/55 L Blood Pressure Mean 68 65 Pulse Ox 96 95 96 Oxygen Delivery Method Room Air 06/27/24 20:30 06/27/24 20:45 06/27/24 21:00 Temperature Temperature Source Pulse Rate Respiratory Rate Respiratory Effort Respiratory Pattern Blood Pressure 97/46 L 98/55 L 102/56 L Blood Pressure Mean 60 69 69 Pulse Ox 96 97 96 Oxygen Delivery Method 06/27/24 21:20 Temperature 97.0 F L Temperature Source Oral Pulse Rate 95 Respiratory Rate 16 Respiratory Effort Respiratory Pattern Blood Pressure 105/57 L Blood Pressure Mean 73 Pulse Ox 96 Oxygen Delivery Method Room Air MDM <TALIB Mcknight - Last Filed: 06/27/24 21:47> MDM Lab Data Labs: Laboratory Results - last 24 hr 06/27/24 19:25 WBC 10.0 RBC 4.42 Hgb 11.4 L Hct 36.4 L MCV 82.4 MCH 25.8 L MCHC 31.3 L RDW Std Deviation 41.5 RDW Coeff of Anurag 14.0 Plt Count 207 MPV 10.9 Immature Gran % (Auto) 0.300 Neut % (Auto) 67.7 Lymph % (Auto) 24.9 [place] % (Auto) 5.0 Eos % (Auto) 1.8 Baso % (Auto) 0.3 Absolute Neuts (auto) 6.8 Absolute Lymphs (auto) 2.50 Nucleated RBC % 0 Differential Comment SCANNED Sodium 139 Potassium 4.7 Chloride 113 H Carbon Dioxide 21.0 Anion Gap 5 BUN 18 Creatinine 0.88 Estim Creat Clear Calc 119.54 Est GFR (MDRD) Af Amer 104 Est GFR (MDRD) Non-Af 86 BUN/Creatinine Ratio 20.5 H Glucose 101 Calcium 8.9 Total Bilirubin 0.20 AST 14 L ALT 20 Alkaline Phosphatase 54 Total Protein 6.9 Albumin 2.8 L Globulin 4.1 Albumin/Globulin Ratio 0.7 L Lipase 27 Treatment and Re-Evaluation :: Differential diagnosis includes however is not limited to: Hypotension, dehydration, autonomic dysreflexia, axonal medication overdose, anemia, sepsis Patient is in no obvious respiratory distress, patient's blood pressure is 90/50 manual. Patient is alert and oriented. Per the mom, the patient when she gets red and starts to complain of a headache, this usually means that her blood pressure is high however tonight, the patient's mother did not take the blood pressure, and gave her the blood pressure pill anyway. There is a chance that blood pressure was normal and once taking the pill the blood pressure is now low. She did have some nausea and vomiting, basic laboratory values will be drawn, CBC, CMP, lipase. Patient received IV fluids, Zofran as well as IV Toradol. Patient is currently on antibiotics for her sacral wound to her sacrum area, this area appears well-appearing. On reevaluation, the patient was feeling much better. Patient's blood pressure 105/57. Laboratory values show a normal CBC, chemistries were unremarkable. Patient's lipase was negative. Patient still had slight head pain after the IV Toradol, Zofran, patient was then given Reglan. Patient is resting at this time, blood pressure is normalizing. At this time, I do believe the patient stable for discharge. Patient will return for any worsening symptoms. Stable for discharge. <Dr. Hermelindo Mckenna MD - Last Filed: 06/27/24 20:53> [facility] Narrative Medical decision making narrative: I have personally performed a face to face assessment of the patient and have reviewed the KAVON Note. I performed a substantive portion of the visit including all aspects of the following. My wheeler findings include: History is concerned that patient was having another episode of dysautonomia today, and usually this is associated with elevated blood pressure but family did not check blood pressure but she was having a headache and crying which is typical with these episodes, and since they could not find her prn captopril, they called EMS. Upon getting in the ambulance mom found the captopril and gave her a quarter of a pill, the tablets are 12.5 mg the lowest dose, and 2 or 3 minutes later EMS checked her blood pressure and it was 88. Exam is NAD at baseline mental status lungs clear, heart is regular without tachycardia. Abdomen soft nondistended. Patient has some mild photophobia. She is able to converse and follow commands. Well-appearing. Medical Decison Making screening labs, IV fluids, treat headache, reevaluate. Reassured blood pressure may be low related to her dysautonomia not due to the medication she gave, and discussed with mom to check blood pressure before giving her additional blood pressure medications. Likely this was a small dose with a half-life of about 3 hours. Other additions or changes: [None] Lab Data Labs: Laboratory Results - last 24 hr 06/27/24 19:25 WBC 10.0 RBC 4.42 Hgb 11.4 L Hct 36.4 L MCV 82.4 MCH 25.8 L MCHC 31.3 L RDW Std Deviation 41.5 RDW Coeff of Anurag 14.0 Plt Count 207 MPV 10.9 Immature Gran % (Auto) 0.300 Neut % (Auto) 67.7 Lymph % (Auto) 24.9 [place] % (Auto) 5.0 Eos % (Auto) 1.8 Baso % (Auto) 0.3 Absolute Neuts (auto) 6.8 Absolute Lymphs (auto) 2.50 Nucleated RBC % 0 Differential Comment SCANNED Sodium 139 Potassium 4.7 Chloride 113 H Carbon Dioxide 21.0 Anion Gap 5 BUN 18 Creatinine 0.88 Estim Creat Clear Calc 119.54 Est GFR (MDRD) Af Amer 104 Est GFR (MDRD) Non-Af 86 BUN/Creatinine Ratio 20.5 H Glucose 101 Calcium 8.9 Total Bilirubin 0.20 AST 14 L ALT 20 Alkaline Phosphatase 54 Total Protein 6.9 Albumin 2.8 L Globulin 4.1 Albumin/Globulin Ratio 0.7 L Lipase 27 Discharge Plan Triage Chief Complaint: Hypotension ED Midlevel Provider: Zach Menendez ED Provider: Hermelindo Mckenna Dx/Rx/DC Orders Clinical Impression: Hypotension, Headache, Nausea & vomiting Instructions: ED Low Blood Pressure, All Causes, ED Vomiting (Adult) Prescriptions: No Action aspirin 81 mg Tablet,Delayed Release (Dr/Ec) 81 mg PO DAILY baclofen 20 mg Tablet 40 mg PO BID nitroglycerin 2 % Ointment 1 inch TRANSDERMAL PRN PRN (Reason: autonomic dysreflexia) cholecalciferol (vitamin D3) [Vitamin D3] 25 mcg (1,000 unit) Capsule 25 mcg PO DAILY docusate sodium 100 mg Capsule 100 mg PO TID PRN (Reason: stool softener) escitalopram oxalate 20 mg Tablet 20 mg PO DAILY methenamine hippurate [Hiprex] 1 gram tablet 1 g PO Q12H Rx Instructions: can be continued indefinitely. For UTI prevention. nystatin 100,000 unit/gram powder 1 applic topical BID enoxaparin 40 mg/0.4 mL syringe 40 mg subcut BID Patient Comments: INJECT 0.4 ML SUBCUTANEOUSLY EVERY 12 HOURS polyethylene glycol 3350 17 gram powder in packet 17 g PO PRN PRN (Reason: STOOL SOFTENER) Rx Instructions: 1 cap full three times a day as needed for constipation, it is OTC tizanidine 4 mg tablet 4 mg PO Q12H Patient Comments: Take 1 tablet by mouth two times a day. oxybutynin chloride 5 mg tablet extended release 24hr 5 mg PO DAILY Patient Comments: Take 1 tablet by mouth once daily. melatonin 1 mg tablet 2 mg PO QHS Patient Comments: Take 2 tablets by mouth daily at bedtime. Take 1 mg at 1200 a.m. and 1 mg at 200 a.m. captopril 12.5 mg tablet 3.125 mg PO DAILY PRN dicyclomine 10 mg capsule 20 mg PO Q6H PRN PRN (Reason: abdominal pain) Qty: 20 0RF ondansetron [ondansetron] 4 mg tablet,disintegrating 8 mg PO Q8H PRN PRN (Reason: Nausea) Qty: 20 0RF Critic-Aid Clear 86.5 % ointment 1 applic topical TID Qty: 71 2RF hydrocodone-acetaminophen 5-325 mg tablet 1 tab PO Q8H PRN (Reason: pain) 3 Days Qty: 10 0RF penicillin V potassium 250 mg tablet 500 mg PO 4X/DAY Qty: 28 0RF naproxen 500 mg tablet 500 mg PO BID Qty: 14 0RF azelastine 137 mcg (0.1 %) spray,non-aerosol 2 spray intranasal BID Qty: 30 0RF Rx Instructions: administer into each nostril benzonatate 200 mg capsule 200 mg PO TID PRN (Reason: cough) Qty: 30 0RF dexamethasone 6 mg tablet 6 mg PO DAILY 10 Days Qty: 10 0RF ondansetron 4 mg tablet,disintegrating 4 mg PO TID PRN (Reason: nausea and vomiting) Qty: 21 0RF sulfamethoxazole-trimethoprim 800-160 mg tablet 1 tab PO BID Qty: 10 0RF oxycodone-acetaminophen 5-325 mg tablet 1 tab PO Q6H PRN PRN (Reason: Pain) 3 Days Qty: 12 0RF cephalexin 500 mg capsule 500 mg PO Q6 Qty: 20 0RF doxycycline hyclate 100 mg capsule 100 mg PO BID Qty: 20 0RF ciprofloxacin HCl 500 mg tablet 500 mg PO BID Qty: 14 0RF Primary Care Provider: Dao Paulino Referrals: Dao Paulino MD [Primary Care Provider] - Activity Restrictions/Additional Instructions: Please continue take your medications as prescribed. Follow-up outpatient. Print Language: Azerbaijani Disposition Disposition: Home, Self Care
[2024-06-27] MEDS: 0.9% Normal Saline (1000mL) 1,000 ML 999 ML IV (19:24)
[2024-06-27 19:35] LABS: Absolute Neutrophil Count 6.8 X10^3/uL (2.0-7.7); Basophil# 0.03 X10^3/uL; Basophil% 0.3 % (0-1); Eosinophil# 0.18 X10^3/uL; Eosinophils% 1.8 % (0-5); Hematocrit 36.4 % (37-47); Hemoglobin 11.4 g/dL (12.0-15.0); Lymphocyte % 24.9 % (19-41); Mean Corp Hgb Conc 31.3 g/dL (32-36); Mean Corpuscular Hgb 25.8 pg (27.0-32.0); Mean Corpuscular Volume 82.4 fL (81-99); Mean Platelet Vol. 10.9 fl (6.2-12.0); NRBC Flagged by Analyzer 0 % (0-5); Neutrophil % 67.7 % (47-70); POSITIVE COUNT YES; Platelet Count 207 K/mm3 (150-450); RBC Distribution Width SD 41.5 fl (35.1-43.9); Red Blood Count 4.42 M/mm3 (4.2-5.4)
[2024-06-27 19:41] LABS: Differential Indicated SCAN CRITERIA MET
[2024-06-27] MEDS: Ketorolac 15 MG/ML Vial IV (19:50)
[2024-06-27] MEDS: Ondansetron 4 MG/2 ML Vial IV (19:51)
[2024-06-27 20:24] LABS: ALB/GLOB Ratio 0.7 RATIO (0.9-2.4); AST(SGOT) 14 U/L (15-37); Alanine Aminotransfer ALT/SGPT 20 U/L (13-56); Albumin, Serum 2.8 g/dL (3.2-5.0); Alkaline Phosphatase 54 U/L (45-117); Anion Gap 5 (5-15); BUN 18 mg/dL (7-18); BUN/Creat Ratio 20.5 RATIO (10-20); Calcium,Total 8.9 mg/dL (8.5-10.1); Chloride 113 mmol/L (98-107); Creatinine, Serum 0.88 mg/dL (0.55-1.02); EST Glomerular Filtration Rate 86 mL/min (>60); Est Glom Filt Rate - Afr Amer 104 mL/min (>60); Estimated Creatinine Clearance 119.54 ml/min; Globulin 4.1 g/dL (2.2-4.2); Glucose 101 mg/dL (74-106); Lipase 27 U/L (13-75); Potassium 4.7 mmol/L (3.5-5.1); Protein, Total 6.9 g/dL (6.4-8.2); Sodium Level 139 mmol/L (136-145)
[2024-06-27 20:48] LABS: Differential Comment SCANNED
[2024-06-27] MEDS: Metoclopramide 10 MG/2 ML Vial 5 MG IV (21:19)
[2024-06-28] VITALS (12 sets, daily range): BP systolic 112–130; BP diastolic 59–102; O2SAT 96–98
--- NOTE | 2024-06-28 01:03 | ED.RN ---
PHYSICIANS CALLED AT [phone] LETTING US KNOW THE RIDE ETA IS GOING TO BE ANOTHER 2 HRS DUE TO ONLY ALS CREWS OUT AND TRAMAS TAKING PRIORITY
== END 2024-06-28 02:44 | disposition home or self-care (01) ==
PROVIDERS: Nurse Practitioner; Emergency Provider Emergency Medicine; PCP Family Medicine; Visit Provider Emergency Medicine
DX: I95.9 Hypotension, unspecified (principal); G82.20 Paraplegia, unspecified; Z93.3 Colostomy status; R11.2 Nausea with vomiting, unspecified; R51.9 Headache, unspecified; G90.4 Autonomic dysreflexia; F17.290 Nicotine dependence, other tobacco product, uncomplicated; Z79.82 Long term (current) use of aspirin; Z79.899 Other long term (current) drug therapy
CPT/HCPCS: 80053; 83690; 85025; 96361; 96374; 96375; 99284; A4216; J2405

== ENCOUNTER 2024-08-03 10:28 | Emergency (ER) | payer MEDICAID, SELFPAY ==
[2024-08-03] VITALS (7 sets, daily range): BP systolic 109–168; BP diastolic 85–117; PULSE 104–118; RESP 13–32; TEMP 36.6–36.9; O2SAT 97–99; BMI 38.0
[2024-08-03] MEDS: 0.9% Normal Saline (1000mL) 1,000 ML 1000 ML IV (12:12)
[2024-08-03 12:18] LABS: Absolute Lymphocyte Count 2.23 X10^3/uL (0.83-4.51); Absolute Neutrophil Count 9.3 X10^3/uL (2.0-7.7); Basophil# 0.06 X10^3/uL; Basophil% 0.5 % (0-1); Eosinophil# 0.22 X10^3/uL; Eosinophils% 1.7 % (0-5); Hematocrit 39.3 % (37-47); Hemoglobin 12.1 g/dL (12.0-15.0); Lymphocyte # 2.23 X10^3/ul (0.83-4.51); Lymphocyte % 17.7 % (19-41); Mean Corp Hgb Conc 30.8 g/dL (32-36); Mean Corpuscular Hgb 24.7 pg (27.0-32.0); Mean Corpuscular Volume 80.4 fL (81-99); Mean Platelet Vol. 9.5 fl (6.2-12.0); Monocyte# 0.58 X10^3/uL; Monocyte% 4.6 % (0-10); NRBC Flagged by Analyzer 0 % (0-5); Neutrophil # 9.33 X10^3/uL (2.7-7.7); Neutrophil % 73.8 % (47-70); Platelet Count 414 K/mm3 (150-450); RBC Distribution Width CV 15.3 % (11.6-14.6); Red Blood Count 4.89 M/mm3 (4.2-5.4); White Blood Count 12.6 K/mm3 (4.4-11.0)
[2024-08-03 12:22] LABS: Mucous, Urine 0 SEEN /hpf (<or=2+)
[2024-08-03 12:26] LABS: Glucose, Dipstick Normal (Normal); Ketone-Dipstick 5 mg/dl (Negative); Leukocyte Esterase-Dipstick 500 /ul (Negative); Nitrite-Dipstick Negative (Negative); Occult Blood-Urine 150 /ul (Negative); Protein-Dipstick 30 mg/dl (Negative); Urine Bilirubin Dipstick Negative (Negative); Urine Urobilinogen Normal (Normal)
[2024-08-03 12:30] LABS: ALB/GLOB Ratio 0.6 RATIO (0.9-2.4); AST(SGOT) 13 U/L (15-37); Alanine Aminotransfer ALT/SGPT 27 U/L (13-56); Albumin, Serum 3.1 g/dL (3.2-5.0); Alkaline Phosphatase 95 U/L (45-117); Anion Gap 7 (5-15); BUN 16 mg/dL (7-18); Calcium,Total 9.8 mg/dL (8.5-10.1); Chloride 105 mmol/L (98-107); Creatinine, Serum 0.89 mg/dL (0.55-1.02); EST Glomerular Filtration Rate 85 mL/min (>60); Est Glom Filt Rate - Afr Amer 103 mL/min (>60); Globulin 4.9 g/dL (2.2-4.2); Glucose 87 mg/dL (74-106); Potassium 3.9 mmol/L (3.5-5.1); Sodium Level 139 mmol/L (136-145)
[2024-08-03 12:31] LABS: Color, Urine OTHER (Yellow); Urine Clarity Clear (Clear)
[2024-08-03 12:36] LABS: Internal QC Validated? YES +Cl - CLEAR BKGD; Pregnancy, Urine Negative Negative
[2024-08-03 12:38] LABS: Bacteria 4+ /hpf (None Seen); Red Blood Cells-Urine > 100 SEEN /hpf (0-5); Squamous Epithelial Cells - UA 10-25 SEEN /hpf (5-10); White Blood Cells >100 SEEN /hpf (0-5)
[2024-08-03 12:39] LABS: Triple Phosphate Crystals Ur 2+ /hpf (<or=1+)
--- NOTE | 2024-08-03 13:25 | EDS_ITS ---
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 Patient most recently had her Ma catheter bag changed a week ago. She started to have green urine discoloration yesterday. Denies any fevers, change in appetite, nausea, vomiting or change in stool output. Does have a colostomy as well. Denies associate abdominal pain. Denies any new medications. Follows with urology in [place] and her suprapubic Ma catheter was placed with Dr. Rodriguez. [facility] Medical History Neurogenic bladder Urinary retention Open wound Depression Excessive bleeding Seizures Indwelling urethral catheter present Former smoker Ureteral calculus Colostomy in place Autonomic dysreflexia New onset seizure Paraplegic spinal paralysis Urinary tract infection Neck fracture Single kidney Double uterus Wounds, multiple Home Medications ?Medication ?Instructions ?Recorded ?Last Taken ?Type aspirin 81 mg tablet,delayed 81 mg PO DAILY heart health 07/17/21 10/27/22 08:00 History release baclofen 20 mg tablet 40 mg PO BID muscle spasms 07/17/21 10/27/22 History 2200 cholecalciferol (vitamin D3) 25 25 mcg PO DAILY supplement 07/17/21 10/27/22 08:00 History mcg (1,000 unit) capsule (Vitamin D3) docusate sodium 100 mg capsule 100 mg PO TID PRN stool softener 07/17/21 10/27/22 08:00 History escitalopram oxalate 20 mg tablet 20 mg PO DAILY depression 07/17/21 10/27/22 08:00 History nitroglycerin 2 % transdermal 1 inch transdermal PRN PRN 07/17/21 Unknown History ointment autonomic dysreflexia methenamine hippurate 1 gram 1 g PO Q12H UTI prevention 09/12/22 10/27/22 22:00 History tablet (Hiprex) nystatin 100,000 unit/gram topical 1 applic topical BID skin 09/12/22 Unknown History powder irritation enoxaparin 40 mg/0.4 mL 40 mg subcut BID 02/10/23 Unknown History subcutaneous syringe polyethylene glycol 3350 17 gram 17 g PO PRN PRN STOOL SOFTENER 02/10/23 Unknown History oral powder packet dicyclomine 10 mg capsule 20 mg (2 x 10 mg) PO Q6H PRN PRN 08/23/23 Unknown Rx abdominal pain #20 CAPSULES ondansetron 4 mg disintegrating 8 mg (2 x 4 mg) PO Q8H PRN PRN 08/23/23 Unknown Rx tablet Nausea #20 tabs captopril 12.5 mg tablet 3.125 mg PO DAILY PRN 10/11/23 Unknown History melatonin 1 mg tablet 2 mg PO QHS 10/11/23 Unknown History oxybutynin chloride 5 mg 5 mg PO DAILY 10/11/23 Unknown History tablet,extended release 24 hr tizanidine 4 mg tablet 4 mg PO Q12H 10/11/23 Unknown History white petrolatum 86.5 % topical 1 applic topical TID #71 grams 11/09/23 Unknown Rx ointment (Critic-Aid Clear) hydrocodone-acetaminophen 5-325mg 1 tab PO Q8H PRN pain 3 days #10 11/13/23 Unknown Rx 5mg-325mg tabs naproxen 500 mg tablet 500 mg PO BID #14 tabs 01/19/24 Unknown Rx penicillin V potassium 250 mg 500 mg (2 x 250 mg) PO 4X/DAY #28 01/19/24 Unknown Rx tablet tabs ondansetron 4 mg disintegrating 4 mg PO TID PRN nausea and 04/29/24 Unknown Rx tablet vomiting #21 tabs cephalexin 500 mg capsule 500 mg PO Q6 #20 CAPSULES 05/21/24 Unknown Rx oxycodone-acetaminophen 5 mg-325 1 tab PO Q6H PRN PRN Pain 3 days 05/21/24 Unknown Rx mg tablet #12 TABLETS sulfamethoxazole 800 1 tab PO BID #10 TABLETS 05/21/24 Unknown Rx mg-trimethoprim 160 mg tablet azelastine 137 mcg (0.1 %) nasal 2 spray intranasal BID #30 mL 06/15/24 Unknown Rx spray benzonatate 200 mg capsule 200 mg PO TID PRN cough #30 caps 06/15/24 Unknown Rx dexamethasone 6 mg tablet 6 mg PO DAILY 10 days #10 tabs 06/15/24 Unknown Rx ciprofloxacin HCl 500 mg tablet 500 mg PO BID #14 TABLETS 06/24/24 Unknown Rx doxycycline hyclate 100 mg capsule 100 mg PO BID #20 caps 06/24/24 Unknown Rx sulfamethoxazole 800 1 tab PO BID #14 tabs 08/03/24 Unknown Rx mg-trimethoprim 160 mg tablet (Bactrim DS) Allergy/AdvReac Type Severity Reaction Status Date / Time No Known Allergies Allergy Verified 06/11/24 21:11 Surgical History History of urostomy History of cystoscopy History of colectomy History of urethral stent S/P cervical spinal fusion H/O thumb surgery Social History household members: family Smoking Status: Former smoker alcohol intake: never substance use type: does not use ROS ROS ED Constitutional Constitutional ED: Reports chills, sweats and other Details: flushing ; Denies fever(s) Eyes Eyes: Denies change in vision ENT ENT ED: Denies rhinorrhea or sore throat Cardiovascular Cardiovascular: Denies chest pain Respiratory/Chest Respiratory/Chest: Denies cough or dyspnea Gastrointestinal Gastrointestinal: Denies abdominal pain, nausea or vomiting Genitourinary Genitourinary ED: Reports other Details: Green discoloration of urine, cloudy urine from suprapubic Ma catheter ; Denies urinary frequency Musculoskeletal Musculoskeletal: Denies arthralgias or myalgias Integumentary Denies rash Neurologic Neurologic: Reports other Details: Paraplegia from priors cervical spinal injury Hematologic/Lymphatic Hematologic/Lymphatic: Denies easy bleeding or easy bruising EXAM Physical Exam Const Vital Signs: 08/03/24 10:29 08/03/24 10:32 08/03/24 10:41 Temperature 98.4 F 98.4 F Temperature Source Oral Oral Pulse Rate 104 H 111 H Respiratory Rate 13 23 H Respiratory Effort Normal Non-Labored Respiratory Pattern Normal Blood Pressure 109/85 H 109/85 H Blood Pressure Mean 93 93 Pulse Ox 98 97 Oxygen Delivery Method Room Air Room Air 08/03/24 12:00 08/03/24 14:00 08/03/24 15:02 Temperature 98.4 F 97.8 F 98.2 F Temperature Source Temporal Temporal Pulse Rate 112 H 109 H 112 H Respiratory Rate 32 H 18 22 H Respiratory Effort Respiratory Pattern Blood Pressure 152/114 H 168/117 H 148/106 H Blood Pressure Mean 126 133 120 Pulse Ox 98 99 99 Oxygen Delivery Method Room Air Room Air Positive well nourished Constitutional Narrative: Slightly flushed and sweaty General Appearance ED: NAD HEENT Reports moist mucous membranes Eyes PERRL Neck supple Chest Wall inspection of chest normal Resp normal respiratory effort and clear to auscultation bilaterally Cardio regular rhythm and no murmurs Rate: tachycardic GI normal to inspection, nondistended, normoactive bowel sounds, non-tender and non-distended Narrative: Suprapubic Ma catheter in place. It is draining greenish tinged and cloudy urine Back/Spine no CVA tenderness Extremity Extremity Narrative: Mild pedal edema, chronic appearing Neuro Neuro Narrative: Neurologic deficits consistent with prior cervical spine injury, no acute or focal deficits Sensorium / Orientation: alert Skin Skin Narrative: Stage III sacral decubitus wound that goes down through the muscle but appears to be healing well. Does not appear acutely infected, no drainage associated MDM MDM MDM Narrative Medical decision making narrative: Patient is evaluated for concern of hot and cold flashes, increased flushing and sweating as well as abnormal odor and color to her urine. Concern for catheter associated urinary tract infection. Patient's vital signs are significant for mild tachycardia however she is afebrile. Clinically she does not appear dehydrated. She does have a mild leukocytosis of 12.6 which is mildly above her baseline with signs of a left shift. Her lactate is normal and she does not have findings consistent with endorgan damage or severe sepsis/septic shock. Kidney function is at her baseline with a creatinine of 0.89. Urinalysis is consistent with infection with greater than 100 red blood cells as well as white blood cells and 4+ bacteria. Given the acute change in symptoms as well as urinalysis findings and new leukocytosis will send urine for culture and start her on Bactrim based on prior culture sensitivities. I did discuss the case with Dr. Rodriguez as patient is she told her that who she follows with. Dr. Rodriguez states that she has been referred to [place] and that while she did place the patient suprapubic Ma catheter she does not follow her anymore because of the patient's complexity. Patient is encouraged to follow-up with her urologist in [place]. Will be started is given first dose of Bactrim in the emergency room. Encouraged to return the emergency room if she has a progression worsening symptoms. She is not having any GI symptoms and tolerates p.o. at this time I feel that she is a good candidate for outpatient follow-up. Patient discharged home in stable condition. Lab Data Labs: Laboratory Results - last 24 hr 08/03/24 08/03/24 08/03/24 11:30 12:06 12:15 WBC 12.6 H RBC 4.89 Hgb 12.1 Hct 39.3 MCV 80.4 L MCH 24.7 L MCHC 30.8 L RDW Std Deviation 44.0 H RDW Coeff of Anurag 15.3 H Plt Count 414 MPV 9.5 Immature Gran % (Auto) 1.700 H Neut % (Auto) 73.8 H Lymph % (Auto) 17.7 L Harvey % (Auto) 4.6 Eos % (Auto) 1.7 Baso % (Auto) 0.5 Absolute Neuts (auto) 9.3 H Absolute Lymphs (auto) 2.23 Nucleated RBC % 0 Sodium 139 Potassium 3.9 Chloride 105 Carbon Dioxide 27.0 Anion Gap 7 BUN 16 Creatinine 0.89 Estim Creat Clear Calc 119.40 Est GFR (MDRD) Af Amer 103 Est GFR (MDRD) Non-Af 85 BUN/Creatinine Ratio 18.0 Glucose 87 Lactic Acid 1.0 Calcium 9.8 Total Bilirubin 0.60 AST 13 L ALT 27 Alkaline Phosphatase 95 Total Protein 8.0 Albumin 3.1 L Globulin 4.9 H Albumin/Globulin Ratio 0.6 L Urine Color OTHER Urine Clarity Clear Urine pH 8.0 Ur Specific [place] 1.010 Urine Protein 30 H Urine Glucose (UA) Normal Urine Ketones 5 H Urine Occult Blood 150 H Urine Nitrite Negative Urine Bilirubin Negative Urine Urobilinogen Normal Ur Leukocyte Esterase 500 H Urine RBC > 100 SEEN Urine WBC >100 SEEN Ur Squamous Epith Cells 10-25 SEEN Triple Phos Crystals 2+ Urine Bacteria 4+ Urine Mucus 0 SEEN Urine Test Negative Discharge Plan Triage Chief Complaint: General Illness ED Provider: Sharee Peña Dx/Rx/DC Orders Clinical Impression: Complicated urinary tract infection, Neurogenic bladder, Leukocytosis Instructions: UTIs Understanding Prescriptions: New sulfamethoxazole-trimethoprim [Bactrim DS] 800-160 mg tablet 1 tab PO BID Qty: 14 0RF No Action aspirin 81 mg Tablet,Delayed Release (Dr/Ec) 81 mg PO DAILY baclofen 20 mg Tablet 40 mg PO BID nitroglycerin 2 % Ointment 1 inch TRANSDERMAL PRN PRN (Reason: autonomic dysreflexia) cholecalciferol (vitamin D3) [Vitamin D3] 25 mcg (1,000 unit) Capsule 25 mcg PO DAILY docusate sodium 100 mg Capsule 100 mg PO TID PRN (Reason: stool softener) escitalopram oxalate 20 mg Tablet 20 mg PO DAILY methenamine hippurate [Hiprex] 1 gram tablet 1 g PO Q12H Rx Instructions: can be continued indefinitely. For UTI prevention. nystatin 100,000 unit/gram powder 1 applic topical BID enoxaparin 40 mg/0.4 mL syringe 40 mg subcut BID Patient Comments: INJECT 0.4 ML SUBCUTANEOUSLY EVERY 12 HOURS polyethylene glycol 3350 17 gram powder in packet 17 g PO PRN PRN (Reason: STOOL SOFTENER) Rx Instructions: 1 cap full three times a day as needed for constipation, it is OTC tizanidine 4 mg tablet 4 mg PO Q12H Patient Comments: Take 1 tablet by mouth two times a day. oxybutynin chloride 5 mg tablet extended release 24hr 5 mg PO DAILY Patient Comments: Take 1 tablet by mouth once daily. melatonin 1 mg tablet 2 mg PO QHS Patient Comments: Take 2 tablets by mouth daily at bedtime. Take 1 mg at 1200 a.m. and 1 mg at 200 a.m. captopril 12.5 mg tablet 3.125 mg PO DAILY PRN dicyclomine 10 mg capsule 20 mg PO Q6H PRN PRN (Reason: abdominal pain) Qty: 20 0RF ondansetron [ondansetron] 4 mg tablet,disintegrating 8 mg PO Q8H PRN PRN (Reason: Nausea) Qty: 20 0RF Critic-Aid Clear 86.5 % ointment 1 applic topical TID Qty: 71 2RF hydrocodone-acetaminophen 5-325 mg tablet 1 tab PO Q8H PRN (Reason: pain) 3 Days Qty: 10 0RF penicillin V potassium 250 mg tablet 500 mg PO 4X/DAY Qty: 28 0RF naproxen 500 mg tablet 500 mg PO BID Qty: 14 0RF azelastine 137 mcg (0.1 %) spray,non-aerosol 2 spray intranasal BID Qty: 30 0RF Rx Instructions: administer into each nostril benzonatate 200 mg capsule 200 mg PO TID PRN (Reason: cough) Qty: 30 0RF dexamethasone 6 mg tablet 6 mg PO DAILY 10 Days Qty: 10 0RF ondansetron 4 mg tablet,disintegrating 4 mg PO TID PRN (Reason: nausea and vomiting) Qty: 21 0RF sulfamethoxazole-trimethoprim 800-160 mg tablet 1 tab PO BID Qty: 10 0RF oxycodone-acetaminophen 5-325 mg tablet 1 tab PO Q6H PRN PRN (Reason: Pain) 3 Days Qty: 12 0RF cephalexin 500 mg capsule 500 mg PO Q6 Qty: 20 0RF doxycycline hyclate 100 mg capsule 100 mg PO BID Qty: 20 0RF ciprofloxacin HCl 500 mg tablet 500 mg PO BID Qty: 14 0RF Primary Care Provider: Dao Paulino Referrals: Dao Paulino MD [Primary Care Provider] - Activity Restrictions/Additional Instructions: Urine culture was sent and we will contact you if you require different antibiotics. If you have worsening symptoms please return to the emergency room. Patient drinking plenty of fluids. Print Language: [place] Disposition Disposition: Home, Self Care
[2024-08-03] MEDS: Smz/Tmp Ds Tablet 1 TABLET PO (14:54)
== END 2024-08-03 20:00 | disposition home or self-care (01) ==
PROVIDERS: Emergency Provider Emergency Medicine; PCP Family Medicine; Visit Provider Emergency Medicine
DX: T83.518A Infection and inflammatory reaction due to other urinary catheter, initial encounter (principal); L89.153 Pressure ulcer of sacral region, stage 3; Z93.3 Colostomy status; D72.829 Elevated white blood cell count, unspecified; Z87.891 Personal history of nicotine dependence; N31.9 Neuromuscular dysfunction of bladder, unspecified; Y73.8 Miscellaneous gastroenterology and urology devices associated with adverse incidents, not elsewhere classified
CPT/HCPCS: 80053; 81001; 81025; 83605; 85025; 87077; 87086; 87088; 87186; 96360; 96361; 99282; J7030; A4216

== ENCOUNTER 2024-10-20 15:04 | Inpatient (IN) | payer MEDICAID, SELFPAY ==
[2024-10-20] VITALS (7 sets, daily range): BP systolic 117–169; BP diastolic 79–99; PULSE 64–105; RESP 10–20; TEMP 36.8–37.1; O2SAT 95–98; BMI 36.5; BMI 34.2
[2024-10-20 15:44] LABS: Erythrocyte Sedimentation Rate 74 mm/hr (0-30)
[2024-10-20 15:46] LABS: Absolute Lymphocyte Count 2.32 X10^3/uL (0.83-4.51); Absolute Neutrophil Count 10.3 X10^3/uL (2.0-7.7); Basophil# 0.06 X10^3/uL; Basophil% 0.4 % (0-1); Eosinophil# 0.32 X10^3/uL; Eosinophils% 2.3 % (0-5); Hematocrit 34.4 % (37-47); Hemoglobin 10.7 g/dL (12.0-15.0); Lymphocyte # 2.32 X10^3/ul (0.83-4.51); Mean Corp Hgb Conc 31.1 g/dL (32-36); Mean Corpuscular Hgb 23.2 pg (27.0-32.0); Mean Corpuscular Volume 74.5 fL (81-99); Mean Platelet Vol. 9.2 fl (6.2-12.0); Monocyte# 0.59 X10^3/uL; Monocyte% 4.3 % (0-10); NRBC Flagged by Analyzer 0.1 % (0-5); Neutrophil # 10.29 X10^3/uL (2.7-7.7); Neutrophil % 75.6 % (47-70); Platelet Count 454 K/mm3 (150-450); RBC Distribution Width CV 15.8 % (11.6-14.6); RBC Distribution Width SD 42.9 fl (35.1-43.9); Red Blood Count 4.62 M/mm3 (4.2-5.4); White Blood Count 13.6 K/mm3 (4.4-11.0)
[2024-10-20 15:58] LABS: Anion Gap 7 (5-15); BUN 15 mg/dL (7-18); BUN/Creat Ratio 23.4 RATIO (10-20); Calcium,Total 9.6 mg/dL (8.5-10.1); Chloride 109 mmol/L (98-107); Creatinine, Serum 0.64 mg/dL (0.55-1.02); EST Glomerular Filtration Rate 123 mL/min (>60); Est Glom Filt Rate - Afr Amer 149 mL/min (>60); Estimated Creatinine Clearance 162.52 ml/min; Glucose 124 mg/dL (74-106); Potassium 3.7 mmol/L (3.5-5.1); Sodium Level 139 mmol/L (136-145)
[2024-10-20] MEDS: Piperacil/Tazobactam 4.5 GM in 0.9% Normal Saline (100mL MB+) 100 ML IV (17:08)
[2024-10-20 17:39] LABS: Lactic Acid 0.7 mmol/L (0.4-1.9)
[2024-10-20] MEDS: Vancomycin HCl 2,000 MG in 0.9% Normal Saline (500mL Bag) 500 ML 250 MG IV (17:55)
[2024-10-20] MEDS: Ondansetron 4 MG/2 ML Vial IV (20:47)
[2024-10-20 21:27] LABS: Ferritin 170 ng/mL (8-252); Iron 15 ug/dL (50-170); Iron Binding Capacity,Total 232 ug/dL (250-450); PERCENT IRON SATURATION 6.5 % (15.0-55.0)
[2024-10-20] MEDS: Mineral Oil/Petrolatum Cr 1.75oz Bottle 1 APPLIC TOPICAL (22:48)
[2024-10-20] MEDS: Acetaminophen 500 MG Tablet 1000 MG PO (22:50)
[2024-10-20] MEDS: Nystatin Powder 15gm Bottle 1 APPLIC TOPICAL (22:51)
[2024-10-20] MEDS: Methenamine Hippurate 1 GM Tablet PO (22:52)
[2024-10-20] MEDS: tiZANidine HCl 2 MG Tablet 4 MG PO (22:55)
[2024-10-20] MEDS: Piperacil/Tazobactam 3.375 GM in 0.9% Normal Saline (50mL MB+) 50 ML IV (23:17)
[2024-10-21] VITALS (12 sets, daily range): BP systolic 93–140; BP diastolic 45–88; PULSE 68–112; RESP 16–18; TEMP 36.6–37.7; O2SAT 92–100
[2024-10-21] MEDS: 0.9% Normal Saline (1000mL) 1,000 ML 100 ML IV ×2 (00:51→22:31)
[2024-10-21] MEDS: Vancomycin IV 1,000 MG/200 ML BAG 200 MG IV ×3 (03:35→22:26)
[2024-10-21] MEDS: Piperacil/Tazobactam 3.375 GM in 0.9% Normal Saline (50mL MB+) 50 ML IV ×2 (06:35→14:48)
[2024-10-21] MEDS: Mineral Oil/Petrolatum Cr 1.75oz Bottle 1 APPLIC TOPICAL ×2 (06:40→22:28)
[2024-10-21 07:08] LABS: Absolute Lymphocyte Count 3.19 X10^3/uL (0.83-4.51); Absolute Neutrophil Count 16.2 X10^3/uL (2.0-7.7); Basophil# 0.07 X10^3/uL; Basophil% 0.3 % (0-1); Eosinophil# 0.23 X10^3/uL; Eosinophils% 1.1 % (0-5); Hematocrit 35.8 % (37-47); Lymphocyte # 3.19 X10^3/ul (0.83-4.51); Lymphocyte % 15.4 % (19-41); Mean Corp Hgb Conc 30.7 g/dL (32-36); Mean Corpuscular Hgb 23.2 pg (27.0-32.0); Mean Corpuscular Volume 75.5 fL (81-99); Mean Platelet Vol. 9.2 fl (6.2-12.0); Monocyte% 4.3 % (0-10); NRBC Flagged by Analyzer 0 % (0-5); Neutrophil % 78.4 % (47-70); Platelet Count 499 K/mm3 (150-450); RBC Distribution Width SD 44.1 fl (35.1-43.9); Red Blood Count 4.74 M/mm3 (4.2-5.4); White Blood Count 20.7 K/mm3 (4.4-11.0)
[2024-10-21 08:02] LABS: International Normalized Ratio 1.2; Prothrombin Time (Protime)PT. 15.1 SECONDS (11.7-14.9)
[2024-10-21 08:03] LABS: Partial Thromboplast Time 23.7 Seconds (24.1-36.2)
[2024-10-21 08:25] LABS: ALB/GLOB Ratio 0.6 RATIO (0.9-2.4); AST(SGOT) 13 U/L (15-37); Alanine Aminotransfer ALT/SGPT 15 U/L (13-56); Albumin, Serum 2.9 g/dL (3.2-5.0); Alkaline Phosphatase 92 U/L (45-117); Anion Gap 8 (5-15); BUN 13 mg/dL (7-18); BUN/Creat Ratio 13.8 RATIO (10-20); Calcium,Total 9.5 mg/dL (8.5-10.1); Chloride 109 mmol/L (98-107); Creatinine, Serum 0.94 mg/dL (0.55-1.02); EST Glomerular Filtration Rate 79 mL/min (>60); Est Glom Filt Rate - Afr Amer 95 mL/min (>60); Estimated Creatinine Clearance 106.95 ml/min; Globulin 5.1 g/dL (2.2-4.2); Glucose 102 mg/dL (74-106); Phosphorus 3.3 mg/dL (2.5-4.9); Potassium 3.8 mmol/L (3.5-5.1); Sodium Level 138 mmol/L (136-145)
[2024-10-21] MEDS: Nystatin Powder 15gm Bottle 1 APPLIC TOPICAL ×2 (12:33→22:29)
[2024-10-21] MEDS: ACETIC ACID 1,000 ML IRRIG.SOLN 1000 ML IRRIGATION (12:35)
[2024-10-21 12:36] LABS: Mucous, Urine 0 SEEN /hpf (<or=2+)
[2024-10-21 12:37] LABS: Color, Urine Yellow (Yellow); Glucose, Dipstick Normal (Normal); Ketone-Dipstick Negative (Negative); Leukocyte Esterase-Dipstick 500 /ul (Negative); Nitrite-Dipstick Positive (Negative); Occult Blood-Urine 250 /ul (Negative); Protein-Dipstick 100 mg/dl (Negative); Urine Bilirubin Dipstick Negative (Negative); Urine Clarity Cloudy (Clear); Urine Urobilinogen Normal (Normal)
[2024-10-21 12:43] LABS: Bacteria 2+ /hpf (None Seen); Red Blood Cells-Urine 50-100 SEEN /hpf (0-5); White Blood Cells >100 SEEN /hpf (0-5)
[2024-10-21 14:11] LABS: Renal Epithelial Cells 50-100 SEEN /hpf (0-5); Squamous Epithelial Cells - UA 50-100 SEEN /hpf (5-10); Transitional Epithelial - Ur 50-100 SEEN /hpf (0-5)
[2024-10-21] MEDS: Epinephrine (1 mg/ml) 1 MG/ML VIAL (18:07)
[2024-10-21] MEDS: Methenamine Hippurate 1 GM Tablet PO (22:26)
[2024-10-21] MEDS: tiZANidine HCl 2 MG Tablet 4 MG PO (22:27)
[2024-10-21] MEDS: Baclofen 10 MG Tablet 40 MG PO (22:27)
[2024-10-21] MEDS: Acetaminophen 500 MG Tablet 1000 MG PO (22:27)
[2024-10-22] VITALS (7 sets, daily range): BP systolic 102–140; BP diastolic 51–80; PULSE 70–90; RESP 17–20; TEMP 36.3–37; O2SAT 93–99
[2024-10-22] MEDS: Piperacil/Tazobactam 3.375 GM in 0.9% Normal Saline (50mL MB+) 50 ML IV ×4 (00:02→22:27)
[2024-10-22 05:45] LABS: Absolute Lymphocyte Count 2.01 X10^3/uL (0.83-4.51); Absolute Neutrophil Count 4.9 X10^3/uL (2.0-7.7); Basophil# 0.05 X10^3/uL; Basophil% 0.6 % (0-1); Eosinophil# 0.32 X10^3/uL; Eosinophils% 4.1 % (0-5); Hematocrit 27.3 % (37-47); Hemoglobin 8.4 g/dL (12.0-15.0); Lymphocyte # 2.01 X10^3/ul (0.83-4.51); Lymphocyte % 25.9 % (19-41); Mean Corp Hgb Conc 30.8 g/dL (32-36); Mean Corpuscular Hgb 23.4 pg (27.0-32.0); Mean Platelet Vol. 9.2 fl (6.2-12.0); Monocyte# 0.44 X10^3/uL; Monocyte% 5.7 % (0-10); NRBC Flagged by Analyzer 0 % (0-5); Neutrophil # 4.91 X10^3/uL (2.7-7.7); Neutrophil % 63.4 % (47-70); Platelet Count 392 K/mm3 (150-450); RBC Distribution Width SD 44.6 fl (35.1-43.9); Red Blood Count 3.59 M/mm3 (4.2-5.4); White Blood Count 7.8 K/mm3 (4.4-11.0)
[2024-10-22] MEDS: Vancomycin IV 1,000 MG/200 ML BAG 200 MG IV (06:08)
[2024-10-22] MEDS: Mineral Oil/Petrolatum Cr 1.75oz Bottle 1 APPLIC TOPICAL ×3 (06:10→22:22)
[2024-10-22] MEDS: Acetaminophen 500 MG Tablet 1000 MG PO ×3 (06:11→22:24)
[2024-10-22 06:55] LABS: Anion Gap 7 (5-15); BUN 15 mg/dL (7-18); BUN/Creat Ratio 15.2 RATIO (10-20); Calcium,Total 8.7 mg/dL (8.5-10.1); Chloride 110 mmol/L (98-107); Creatinine, Serum 0.99 mg/dL (0.55-1.02); EST Glomerular Filtration Rate 75 mL/min (>60); Est Glom Filt Rate - Afr Amer 90 mL/min (>60); Estimated Creatinine Clearance 101.55 ml/min; Glucose 97 mg/dL (74-106); Potassium 3.5 mmol/L (3.5-5.1); Sodium Level 139 mmol/L (136-145)
[2024-10-22] MEDS: Nystatin Powder 15gm Bottle 1 APPLIC TOPICAL ×2 (09:25→22:25)
[2024-10-22] MEDS: Methenamine Hippurate 1 GM Tablet PO ×2 (09:25→22:24)
[2024-10-22] MEDS: Vibegron 75 MG TABLET PO (09:25)
[2024-10-22] MEDS: Enoxaparin 40 MG/0.4 ML Syringe SC (09:25)
[2024-10-22] MEDS: Baclofen 10 MG Tablet 40 MG PO ×2 (09:26→17:00)
[2024-10-22] MEDS: Cholecalciferol (VIT D3) 25 MCG TABLET (1,000 UNITS) PO (09:26)
[2024-10-22] MEDS: Tolterodine Tartrate 4 MG CAP.SA PO (09:26)
[2024-10-22] MEDS: Escitalopram Oxalate 20 MG Tablet PO (09:26)
[2024-10-22] MEDS: ACETIC ACID 1,000 ML IRRIG.SOLN 1000 ML IRRIGATION (10:54)
[2024-10-22 14:40] LABS: Vancomycin, Trough Level 32.4 ug/mL (5.0-15.0)
[2024-10-22] MEDS: tiZANidine HCl 2 MG Tablet 4 MG PO (22:26)
[2024-10-23] MEDS: Alteplase 2 MG/2 ML Vial IV (01:00)
[2024-10-23 01:47] LABS: Mucous, Urine 0 SEEN /hpf (<or=2+)
[2024-10-23 01:53] LABS: Glucose, Dipstick Normal (Normal); Ketone-Dipstick Negative (Negative); Leukocyte Esterase-Dipstick 500 /ul (Negative); Nitrite-Dipstick Negative (Negative); Occult Blood-Urine 250 /ul (Negative); Protein-Dipstick 100 mg/dl (Negative); Urine Bilirubin Dipstick Negative (Negative); Urine Clarity Cloudy (Clear); Urine Urobilinogen Normal (Normal)
[2024-10-23 01:54] LABS: Internal QC Validated? YES +Cl - CLEAR BKGD; Pregnancy, Urine Negative Negative
[2024-10-23 01:57] LABS: Color, Urine SEE COMMENT BELOW (Yellow); Red Blood Cells-Urine > 100 SEEN /hpf (0-5); Squamous Epithelial Cells - UA 0-5 SEEN /hpf (5-10); White Blood Cells 10-25 SEEN /hpf (0-5)
[2024-10-23 01:58] LABS: Bacteria 2+ /hpf (None Seen)
[2024-10-23 04:09] VITALS: BP 99/68; PULSE 65; RESP 16; TEMP 36.6; O2SAT 100
[2024-10-23] MEDS: Mineral Oil/Petrolatum Cr 1.75oz Bottle 1 APPLIC TOPICAL ×3 (07:03→22:52)
[2024-10-23] MEDS: Acetaminophen 500 MG Tablet 1000 MG PO ×3 (07:03→22:51)
[2024-10-23] MEDS: Piperacil/Tazobactam 3.375 GM in 0.9% Normal Saline (50mL MB+) 50 ML IV ×3 (07:03→22:54)
[2024-10-23 07:56] LABS: Absolute Lymphocyte Count 1.39 X10^3/uL (0.83-4.51); Absolute Neutrophil Count 3.8 X10^3/uL (2.0-7.7); Basophil# 0.04 X10^3/uL; Basophil% 0.7 % (0-1); Eosinophil# 0.29 X10^3/uL; Hematocrit 27.4 % (37-47); Hemoglobin 8.1 g/dL (12.0-15.0); Lymphocyte # 1.39 X10^3/ul (0.83-4.51); Lymphocyte % 23.8 % (19-41); Mean Corp Hgb Conc 29.6 g/dL (32-36); Mean Corpuscular Hgb 23.1 pg (27.0-32.0); Mean Corpuscular Volume 78.3 fL (81-99); Mean Platelet Vol. 9.7 fl (6.2-12.0); Monocyte% 5.1 % (0-10); NRBC Flagged by Analyzer 0 % (0-5); Neutrophil # 3.79 X10^3/uL (2.7-7.7); Neutrophil % 65.1 % (47-70); Platelet Count 414 K/mm3 (150-450); RBC Distribution Width CV 16.4 % (11.6-14.6); RBC Distribution Width SD 46.5 fl (35.1-43.9); White Blood Count 5.8 K/mm3 (4.4-11.0)
[2024-10-23 07:57] VITALS: O2SAT 96
[2024-10-23 08:56] LABS: Anion Gap 4 (5-15); BUN 18 mg/dL (7-18); BUN/Creat Ratio 12.3 RATIO (10-20); Calcium,Total 8.9 mg/dL (8.5-10.1); Chloride 116 mmol/L (98-107); Creatinine, Serum 1.46 mg/dL (0.55-1.02); EST Glomerular Filtration Rate 48 mL/min (>60); Est Glom Filt Rate - Afr Amer 58 mL/min (>60); Estimated Creatinine Clearance 68.86 ml/min; Glucose 100 mg/dL (74-106); Potassium 3.6 mmol/L (3.5-5.1); Sodium Level 145 mmol/L (136-145)
[2024-10-23 10:00] VITALS: PULSE 80
[2024-10-23] MEDS: Nystatin Powder 15gm Bottle 1 APPLIC TOPICAL ×2 (10:08→22:52)
[2024-10-23] MEDS: Vancomycin IV 1,000 MG/200 ML BAG 200 MG IV (10:08)
[2024-10-23] MEDS: Tolterodine Tartrate 4 MG CAP.SA PO (10:09)
[2024-10-23] MEDS: Baclofen 10 MG Tablet 40 MG PO (10:10)
[2024-10-23] MEDS: Cholecalciferol (VIT D3) 25 MCG TABLET (1,000 UNITS) PO (10:10)
[2024-10-23] MEDS: Vibegron 75 MG TABLET PO (10:10)
[2024-10-23] MEDS: Escitalopram Oxalate 20 MG Tablet PO (10:11)
[2024-10-23] MEDS: Methenamine Hippurate 1 GM Tablet PO ×2 (10:11→22:51)
[2024-10-23] MEDS: ACETIC ACID 1,000 ML IRRIG.SOLN 1000 ML IRRIGATION (10:12)
[2024-10-23] MEDS: tiZANidine HCl 2 MG Tablet 4 MG PO ×2 (10:12→22:52)
[2024-10-23] MEDS: Enoxaparin 40 MG/0.4 ML Syringe SC (10:12)
[2024-10-23 10:25] VITALS: BP 104/56; PULSE 66; RESP 18; TEMP 36.6; O2SAT 94
[2024-10-23 15:00] VITALS: BP 104/56; PULSE 66; RESP 18; TEMP 36.6; O2SAT 96
[2024-10-23 22:47] VITALS: BP 134/73; PULSE 88; RESP 16; TEMP 36.4; O2SAT 96
[2024-10-24 05:15] VITALS: BP 111/47; PULSE 82; RESP 16; TEMP 36.5; O2SAT 95
[2024-10-24 05:15] LABS: Absolute Lymphocyte Count 1.37 X10^3/uL (0.83-4.51); Absolute Neutrophil Count 4.6 X10^3/uL (2.0-7.7); Basophil# 0.05 X10^3/uL; Basophil% 0.8 % (0-1); Eosinophil# 0.29 X10^3/uL; Eosinophils% 4.4 % (0-5); Hematocrit 24.8 % (37-47); Hemoglobin 7.6 g/dL (12.0-15.0); Lymphocyte # 1.37 X10^3/ul (0.83-4.51); Lymphocyte % 20.6 % (19-41); Mean Corp Hgb Conc 30.6 g/dL (32-36); Mean Corpuscular Hgb 23.5 pg (27.0-32.0); Mean Corpuscular Volume 76.8 fL (81-99); Monocyte# 0.27 X10^3/uL; Monocyte% 4.1 % (0-10); NRBC Flagged by Analyzer 0 % (0-5); Neutrophil # 4.64 X10^3/uL (2.7-7.7); Neutrophil % 69.8 % (47-70); Platelet Count 390 K/mm3 (150-450); RBC Distribution Width CV 16.3 % (11.6-14.6); RBC Distribution Width SD 45.6 fl (35.1-43.9); Red Blood Count 3.23 M/mm3 (4.2-5.4); White Blood Count 6.6 K/mm3 (4.4-11.0)
[2024-10-24] MEDS: Mineral Oil/Petrolatum Cr 1.75oz Bottle 1 APPLIC TOPICAL ×3 (05:19→20:58)
[2024-10-24] MEDS: Acetaminophen 500 MG Tablet 1000 MG PO ×3 (05:20→20:56)
[2024-10-24] MEDS: Piperacil/Tazobactam 3.375 GM in 0.9% Normal Saline (50mL MB+) 50 ML IV ×3 (05:25→20:59)
[2024-10-24 05:29] LABS: Anion Gap 6 (5-15); BUN 20 mg/dL (7-18); BUN/Creat Ratio 14.9 RATIO (10-20); Calcium,Total 8.7 mg/dL (8.5-10.1); Chloride 117 mmol/L (98-107); Creatinine, Serum 1.34 mg/dL (0.55-1.02); EST Glomerular Filtration Rate 53 mL/min (>60); Est Glom Filt Rate - Afr Amer 64 mL/min (>60); Estimated Creatinine Clearance 75.02 ml/min; Glucose 156 mg/dL (74-106); Potassium 3.1 mmol/L (3.5-5.1); Sodium Level 146 mmol/L (136-145)
[2024-10-24] MEDS: 0.9% Saline Lock 10 ML Syringe IV ×3 (07:29→23:21)
[2024-10-24 07:32] VITALS: O2SAT 95
[2024-10-24] MEDS: Vancomycin IV 1,000 MG/200 ML BAG 200 MG IV (10:55)
[2024-10-24] MEDS: Nystatin Powder 15gm Bottle 1 APPLIC TOPICAL ×2 (10:55→20:57)
[2024-10-24] MEDS: Enoxaparin 40 MG/0.4 ML Syringe SC (10:56)
[2024-10-24] MEDS: Baclofen 10 MG Tablet 40 MG PO ×2 (10:57→18:25)
[2024-10-24] MEDS: Methenamine Hippurate 1 GM Tablet PO ×2 (10:58→20:57)
[2024-10-24] MEDS: Vibegron 75 MG TABLET PO (10:59)
[2024-10-24] MEDS: Tolterodine Tartrate 4 MG CAP.SA PO (10:59)
[2024-10-24] MEDS: Escitalopram Oxalate 20 MG Tablet PO (10:59)
[2024-10-24] MEDS: Cholecalciferol (VIT D3) 25 MCG TABLET (1,000 UNITS) PO (11:00)
[2024-10-24 11:08] VITALS: BP 132/77; PULSE 82; RESP 16; TEMP 36.5; O2SAT 97
[2024-10-24] MEDS: ACETIC ACID 1,000 ML IRRIG.SOLN 1000 ML IRRIGATION (11:10)
[2024-10-24] MEDS: tiZANidine HCl 2 MG Tablet 4 MG PO ×2 (12:21→20:57)
[2024-10-24] MEDS: Sodium Ferric Gluconat 250 MG in 0.9% Normal Saline 250 ML 135 MG IV (13:47)
[2024-10-24 15:34] VITALS: BP 90/54; PULSE 70; RESP 17; TEMP 36.7; O2SAT 96
[2024-10-24] MEDS: Sodium Hypochlorite (Dakin's) 0.125% Wound Irrigation IRRIGATION (18:27)
[2024-10-24 18:32] VITALS: BP 101/48
[2024-10-24 20:08] VITALS: BP 109/62; PULSE 83; RESP 16; TEMP 36.5; O2SAT 97
[2024-10-24] MEDS: Ondansetron 4 MG/2 ML Vial IV (21:10)
[2024-10-24] MEDS: Potassium Chloride Oral Tablet 20 MEQ 60 MEQ PO (21:30)
[2024-10-24] MEDS: Linezolid 600 MG 600 MG/300 ML BAG 200 MG IV (23:20)
[2024-10-24] MEDS: 0.9% Normal Saline (500mL Bag) 500 ML 15 ML IV (23:20)
[2024-10-25] VITALS (12 sets, daily range): BP systolic 90–126; BP diastolic 42–88; PULSE 70–92; RESP 16–18; TEMP 36.4–36.8; O2SAT 93–95
[2024-10-25] MEDS: KCL 40mEq in 0.9% NS 40 MEQ/1,000 ML IV.SOLN 70 MEQ IV (01:32)
[2024-10-25 04:51] LABS: Absolute Lymphocyte Count 2.44 X10^3/uL (0.83-4.51); Absolute Neutrophil Count 5.1 X10^3/uL (2.0-7.7); Basophil# 0.05 X10^3/uL; Basophil% 0.6 % (0-1); Eosinophil# 0.31 X10^3/uL; Eosinophils% 3.7 % (0-5); Lymphocyte # 2.44 X10^3/ul (0.83-4.51); Lymphocyte % 29.2 % (19-41); Mean Corp Hgb Conc 30.4 g/dL (32-36); Mean Corpuscular Hgb 23.3 pg (27.0-32.0); Mean Corpuscular Volume 76.4 fL (81-99); Mean Platelet Vol. 9.1 fl (6.2-12.0); Monocyte# 0.42 X10^3/uL; NRBC Flagged by Analyzer 0 % (0-5); Neutrophil # 5.12 X10^3/uL (2.7-7.7); Neutrophil % 61.3 % (47-70); Platelet Count 402 K/mm3 (150-450); RBC Distribution Width CV 16.5 % (11.6-14.6); RBC Distribution Width SD 45.4 fl (35.1-43.9); Red Blood Count 3.01 M/mm3 (4.2-5.4); White Blood Count 8.4 K/mm3 (4.4-11.0)
[2024-10-25 05:08] LABS: Anion Gap 4 (5-15); BUN 16 mg/dL (7-18); BUN/Creat Ratio 11.6 RATIO (10-20); Calcium,Total 8.3 mg/dL (8.5-10.1); Chloride 114 mmol/L (98-107); Creatinine, Serum 1.38 mg/dL (0.55-1.02); EST Glomerular Filtration Rate 51 mL/min (>60); Est Glom Filt Rate - Afr Amer 62 mL/min (>60); Estimated Creatinine Clearance 72.85 ml/min; Glucose 106 mg/dL (74-106); Potassium 4.3 mmol/L (3.5-5.1); Sodium Level 143 mmol/L (136-145)
[2024-10-25] MEDS: Mineral Oil/Petrolatum Cr 1.75oz Bottle 1 APPLIC TOPICAL ×2 (05:59→13:23)
[2024-10-25] MEDS: Piperacil/Tazobactam 3.375 GM in 0.9% Normal Saline (50mL MB+) 50 ML IV ×2 (05:59→13:18)
[2024-10-25] MEDS: Acetaminophen 500 MG Tablet 1000 MG PO ×2 (05:59→13:19)
[2024-10-25] MEDS: Methenamine Hippurate 1 GM Tablet PO (08:46)
[2024-10-25] MEDS: Baclofen 10 MG Tablet 40 MG PO ×2 (08:46→16:58)
[2024-10-25] MEDS: Tolterodine Tartrate 4 MG CAP.SA PO (08:46)
[2024-10-25] MEDS: tiZANidine HCl 2 MG Tablet 4 MG PO (08:46)
[2024-10-25] MEDS: Vibegron 75 MG TABLET PO (08:47)
[2024-10-25] MEDS: Nystatin Powder 15gm Bottle 1 APPLIC TOPICAL (08:47)
[2024-10-25] MEDS: Cholecalciferol (VIT D3) 25 MCG TABLET (1,000 UNITS) PO (08:47)
[2024-10-25] MEDS: Enoxaparin 40 MG/0.4 ML Syringe SC (08:47)
[2024-10-25] MEDS: Linezolid 600 MG 600 MG/300 ML BAG 200 MG IV (10:14)
[2024-10-25] MEDS: Ampicillin/Sulbactam 3 GM in 0.9% Normal Saline (100mL MB+) 100 ML IV (14:17)
[2024-10-25 18:43] LABS: Absolute Lymphocyte Count 2.39 X10^3/uL (0.83-4.51); Absolute Neutrophil Count 4.3 X10^3/uL (2.0-7.7); Basophil# 0.04 X10^3/uL; Basophil% 0.5 % (0-1); Eosinophil# 0.28 X10^3/uL; Eosinophils% 3.8 % (0-5); Hematocrit 27.7 % (37-47); Hemoglobin 8.6 g/dL (12.0-15.0); Lymphocyte # 2.39 X10^3/ul (0.83-4.51); Lymphocyte % 32.6 % (19-41); Mean Corpuscular Hgb 24.3 pg (27.0-32.0); Mean Corpuscular Volume 78.2 fL (81-99); Mean Platelet Vol. 9.1 fl (6.2-12.0); Monocyte# 0.31 X10^3/uL; Monocyte% 4.2 % (0-10); NRBC Flagged by Analyzer 0 % (0-5); Neutrophil # 4.29 X10^3/uL (2.7-7.7); Neutrophil % 58.6 % (47-70); POSITIVE COUNT NO; POSITIVE DIFFERENTIAL NO; POSITIVE MORPHOLOGY NO; Platelet Count 421 K/mm3 (150-450); RBC Distribution Width CV 17.2 % (11.6-14.6); RBC Distribution Width SD 48.3 fl (35.1-43.9); Red Blood Count 3.54 M/mm3 (4.2-5.4); White Blood Count 7.3 K/mm3 (4.4-11.0)
== END 2024-10-25 20:00 | disposition home health service (06) | DRG 364 ==
LOC: ED 17:20 → MS3 19:33
PROVIDERS: Internal Medicine; Internal Medicine Infectious Disease; Surgery Plastic and Reconstructive Surgery; Urology; Admitting Provider Internal Medicine; Emergency Provider Emergency Medicine; PCP Family Medicine; Referring Provider Emergency Medicine; Visit Provider Internal Medicine
DX: L89.154 Pressure ulcer of sacral region, stage 4 (principal); G82.50 Quadriplegia, unspecified; M46.28 Osteomyelitis of vertebra, sacral and sacrococcygeal region; D62 Acute posthemorrhagic anemia; S14.105S Unspecified injury at C5 level of cervical spinal cord, sequela; G90.4 Autonomic dysreflexia; N17.9 Acute kidney failure, unspecified; Z66 Do not resuscitate; D50.9 Iron deficiency anemia, unspecified; Z68.36 Body mass index [BMI] 36.0-36.9, adult; D72.829 Elevated white blood cell count, unspecified; S12.9XXS Fracture of neck, unspecified, sequela; D75.839 Thrombocytosis, unspecified; K59.00 Constipation, unspecified; T83.038A Leakage of other urinary catheter, initial encounter; T80.89XA Other complications following infusion, transfusion and therapeutic injection, initial encounter; V49.9XXS Car occupant (driver) (passenger) injured in unspecified traffic accident, sequela; R33.9 Retention of urine, unspecified; N31.9 Neuromuscular dysfunction of bladder, unspecified; Y73.8 Miscellaneous gastroenterology and urology devices associated with adverse incidents, not elsewhere classified; N32.89 Other specified disorders of bladder; E66.812 Obesity, class 2; Z79.82 Long term (current) use of aspirin; N92.0 Excessive and frequent menstruation with regular cycle; Z87.891 Personal history of nicotine dependence; Y84.8 Other medical procedures as the cause of abnormal reaction of the patient, or of later complication, without mention of misadventure at the time of the procedure; Y92.239 Unspecified place in hospital as the place of occurrence of the external cause
CPT/HCPCS: 36415; 36591; 72193; 80048; 80053; 80202; 81001; 81025; 82248; 82728; 83540; 83550; 83605; 83735; 84100; 85025; 85610; 85652; 85730; 86140; 86850; 86900; 86901; 86920; 86922; 87040; 87070; 87075; 87077; 87086; 87186; 87205; 87640; 88305; 88311; 93005; 94668; 97802; 99285; J2020; J2997; J7030; J7040; J7050; P9016; Q9967; A4216; J0295; J2405; J2916

== ENCOUNTER 2024-11-01 21:38 | Emergency (ER) | payer MEDICAID, SELFPAY ==
[2024-11-01 21:39] VITALS: BP 162/103; PULSE 100; RESP 18; TEMP 36.7; O2SAT 97; BMI 38.9
[2024-11-01 21:47] VITALS: BP 149/82; PULSE 120; RESP 16; O2SAT 97
[2024-11-01 21:48] VITALS: BP 149/82; PULSE 107; RESP 16; TEMP 36.7; O2SAT 98
--- NOTE | 2024-11-01 22:08 | RAD_ITS ---
EXAM: XR CHEST, 1 VIEW CLINICAL INDICATION: weakness TECHNIQUE: Frontal view of the chest. COMPARISON: 06/14/2024 FINDINGS: LUNGS AND PLEURAL SPACES: Unremarkable. No consolidation or edema. No pneumothorax. No effusion. HEART: Unremarkable. Cardiac silhouette not enlarged. MEDIASTINUM: Central airways and mediastinal contour are unremarkable. BONES/JOINTS: Unremarkable. No acute fracture. SOFT TISSUES: Unremarkable. TUBES, LINES AND DEVICES: Right-sided Port-A-Cath in stable position. RAD/Chest 1 View (Portable) IMPRESSION: No acute findings in the chest. Electronically Signed: Abilio Valdez MD at 23:24 EST ,
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
[2024-11-01 22:25] LABS: Absolute Neutrophil Count 8.3 X10^3/uL (2.0-7.7); Basophil% 0.8 % (0-1); Eosinophil# 0.44 X10^3/uL; Eosinophils% 3.7 % (0-5); Hemoglobin 10.7 g/dL (12.0-15.0); Lymphocyte % 20.3 % (19-41); Mean Corp Hgb Conc 30.6 g/dL (32-36); Mean Corpuscular Hgb 24.3 pg (27.0-32.0); Mean Corpuscular Volume 79.5 fL (81-99); Mean Platelet Vol. 9.8 fl (6.2-12.0); Monocyte# 0.51 X10^3/uL; Monocyte% 4.3 % (0-10); NRBC Flagged by Analyzer 0 % (0-5); Neutrophil # 8.34 X10^3/uL (2.7-7.7); Neutrophil % 70.6 % (47-70); POSITIVE MORPHOLOGY YES; Platelet Count 448 K/mm3 (150-450); RBC Distribution Width CV 20.7 % (11.6-14.6); RBC Distribution Width SD 54.7 fl (35.1-43.9); White Blood Count 11.8 K/mm3 (4.4-11.0)
[2024-11-01 22:31] LABS: Differential Indicated SCAN CRITERIA MET
[2024-11-01 22:35] LABS: Bacteria 0 SEEN /hpf (None Seen); Mucous, Urine 0 SEEN /hpf (<or=2+)
[2024-11-01 22:46] LABS: ALB/GLOB Ratio 0.6 RATIO (0.9-2.4); AST(SGOT) 16 U/L (15-37); Alanine Aminotransfer ALT/SGPT 29 U/L (13-56); Albumin, Serum 2.7 g/dL (3.2-5.0); Alkaline Phosphatase 85 U/L (45-117); Anion Gap 7 (5-15); BUN 25 mg/dL (7-18); BUN/Creat Ratio 23.1 RATIO (10-20); Calcium,Total 9.2 mg/dL (8.5-10.1); Chloride 110 mmol/L (98-107); Creatinine, Serum 1.08 mg/dL (0.55-1.02); EST Glomerular Filtration Rate 68 mL/min (>60); Est Glom Filt Rate - Afr Amer 82 mL/min (>60); Estimated Creatinine Clearance 99.75 ml/min; Globulin 4.2 g/dL (2.2-4.2); Glucose 122 mg/dL (74-106); Potassium 3.8 mmol/L (3.5-5.1); Protein, Total 6.9 g/dL (6.4-8.2); Sodium Level 142 mmol/L (136-145)
[2024-11-01 22:56] LABS: Color, Urine Yellow (Yellow); Glucose, Dipstick Normal (Normal); Ketone-Dipstick Negative (Negative); Leukocyte Esterase-Dipstick 500 /ul (Negative); Nitrite-Dipstick Negative (Negative); Occult Blood-Urine 25 /ul (Negative); Protein-Dipstick 30 mg/dl (Negative); Urine Bilirubin Dipstick Negative (Negative); Urine Clarity Sl. Cloudy (Clear); Urine Urobilinogen Normal (Normal)
[2024-11-01 22:57] LABS: Anisocytosis RARE; Microcytosis RARE; Platelet Estimate SLT INC (ADEQ); Red Cell Morphology N CHROM NORMAL (NORM C&C)
[2024-11-01 22:58] LABS: Lactic Acid 1.4 mmol/L (0.4-1.9)
[2024-11-01 23:06] LABS: Amorphous Sediment 1+ URATE; Red Blood Cells-Urine 0-5 SEEN /hpf (0-5); Squamous Epithelial Cells - UA 0-5 SEEN /hpf (5-10); White Blood Cells 50-100 SEEN /hpf (0-5)
[2024-11-01 23:47] VITALS: PULSE 110; RESP 18; O2SAT 96
[2024-11-02 00:57] VITALS: BP 124/81; PULSE 110; RESP 18; TEMP 36.8; O2SAT 98
[2024-11-02 01:00] VITALS: PULSE 110
[2024-11-02 05:20] VITALS: BP 136/72; PULSE 108; RESP 18; O2SAT 99
[2024-11-02 07:00] VITALS: BP 134/70; PULSE 102; RESP 18; O2SAT 99
== END 2024-11-02 08:10 | disposition home or self-care (01) ==
PROVIDERS: Emergency Provider Emergency Medicine; PCP Family Medicine; Visit Provider Emergency Medicine
DX: R11.2 Nausea with vomiting, unspecified (principal); G82.20 Paraplegia, unspecified; Z93.3 Colostomy status; M86.9 Osteomyelitis, unspecified; R19.7 Diarrhea, unspecified; L89.159 Pressure ulcer of sacral region, unspecified stage; L89.319 Pressure ulcer of right buttock, unspecified stage; L89.329 Pressure ulcer of left buttock, unspecified stage; Z87.891 Personal history of nicotine dependence
CPT/HCPCS: 36591; 71045; 80053; 81001; 83605; 85025; 87086; 87088; 87631; 99285; A4216

== ENCOUNTER 2024-11-08 22:00 | Observation (INO) | payer MEDICAID, SELFPAY ==
[2024-11-08 22:04] VITALS: BP 195/117; PULSE 109; RESP 16; TEMP 37.3; O2SAT 96; BMI 35.4
--- NOTE | 2024-11-08 22:18 | RAD_ITS ---
EXAM: XR CHEST, 1 VIEW CLINICAL INDICATION: seizure TECHNIQUE: Frontal view of the chest. COMPARISON: 11/01/2024. FINDINGS: LUNGS AND PLEURAL SPACES: Low lung volumes limit the exam. No consolidations. No pneumothorax. No effusion. HEART: Unremarkable. Cardiac silhouette not enlarged. MEDIASTINUM: Central airways and mediastinal contour are unremarkable. BONES/JOINTS: Unremarkable. No acute fracture. SOFT TISSUES: Unremarkable. TUBES, LINES AND DEVICES: Central line tip in the upper right atrium unchanged since previous exam. RAD/Chest 1 View (Portable) IMPRESSION: 1. Low lung volumes limit the exam. No acute cardiopulmonary finding. 2. Central line tip in the upper right atrium unchanged since previous exam. Electronically Signed: Marcos Mclaughlin MD at 0:03 EST ,
--- NOTE | 2024-11-08 22:18 | CT_ITS ---
EXAM: CT HEAD WITHOUT INTRAVENOUS CONTRAST CLINICAL INDICATION: possible sz TECHNIQUE: Multiple axial images were obtained of the head without intravenous contrast. This CT exam was performed using one or more of the following dose reduction techniques: automated exposure control, adjustment of the mA and/or kV according to patient size, and/or use of iterative reconstruction technique. RADIATION DOSE: CTDIvol = 44.99 mGy, DLP = 812.98 mGy-cm COMPARISON: 09/12/2022. FINDINGS: BRAIN AND EXTRA-AXIAL SPACES: Unremarkable. No intra- or extra-axial hemorrhage. No evidence of acute infarct. No intracranial mass or mass effect. There is preservation of the smith/white matter interface. Posterior fossa structures are unremarkable. Ventricles are appropriate for age. No hydrocephalus. Basal cisterns are patent. BONES/JOINTS: Unremarkable. No discrete lytic or blastic abnormalities. SINUSES: Unremarkable as visualized. Clear. MASTOID AIR CELLS: Unremarkable. Clear. ORBITS: Visualized globes, extraocular muscles, optic nerves and retrobulbar fat appear unremarkable. CT/Brain/Head without Contrast IMPRESSION: No demonstrated acute intracranial process. Electronically Signed: Marcos Mclaughlin MD at 0:00 EST ,
--- NOTE | 2024-11-08 22:19 | EKG12_ITS ---
Test Reason : SEIZURE Blood Pressure : */* mmHG Vent. Rate : 104 BPM Atrial Rate : 104 BPM P-R Int : 148 ms QRS Dur : 94 ms QT Int : 380 ms P-R-T Axes : 48 63 89 degrees QTcB Int : 499 ms Sinus tachycardia Otherwise normal ECG Confirmed by FABIENNE AYALA, TARAS ([id number]), photography editor KIERRA COURTNEY ([id number]) on 11/09/2024 8:19:30 AM Referred By: Confirmed By: TARAS LOVING MD
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
[2024-11-08 22:27] LABS: Absolute Lymphocyte Count 1.67 X10^3/uL (0.83-4.51); Absolute Neutrophil Count 8.2 X10^3/uL (2.0-7.7); Basophil# 0.07 X10^3/uL; Basophil% 0.6 % (0-1); Eosinophil# 0.45 X10^3/uL; Eosinophils% 4.1 % (0-5); Hemoglobin 11.2 g/dL (12.0-15.0); Lymphocyte # 1.67 X10^3/ul (0.83-4.51); Lymphocyte % 15.2 % (19-41); Mean Corp Hgb Conc 31.1 g/dL (32-36); Mean Corpuscular Hgb 24.6 pg (27.0-32.0); Mean Corpuscular Volume 78.9 fL (81-99); Mean Platelet Vol. 9.6 fl (6.2-12.0); Monocyte% 5.4 % (0-10); NRBC Flagged by Analyzer 0 % (0-5); Neutrophil # 8.18 X10^3/uL (2.7-7.7); Neutrophil % 74.3 % (47-70); POSITIVE MORPHOLOGY YES; Platelet Count 447 K/mm3 (150-450); RBC Distribution Width CV 20.3 % (11.6-14.6); RBC Distribution Width SD 56.6 fl (35.1-43.9); Red Blood Count 4.56 M/mm3 (4.2-5.4)
[2024-11-08 22:31] LABS: Mucous, Urine 0 SEEN /hpf (<or=2+)
[2024-11-08 22:33] LABS: Differential Indicated SCAN CRITERIA MET
[2024-11-08 22:36] LABS: Color, Urine Straw (Yellow); Glucose, Dipstick Normal (Normal); Ketone-Dipstick Negative (Negative); Leukocyte Esterase-Dipstick 500 /ul (Negative); Nitrite-Dipstick Negative (Negative); Occult Blood-Urine 150 /ul (Negative); Protein-Dipstick 100 mg/dl (Negative); Urine Bilirubin Dipstick Negative (Negative); Urine Clarity Sl. Cloudy (Clear); Urine Urobilinogen Normal (Normal)
[2024-11-08 22:42] LABS: ALB/GLOB Ratio 0.6 RATIO (0.9-2.4); AST(SGOT) 29 U/L (15-37); Alanine Aminotransfer ALT/SGPT 38 U/L (13-56); Albumin, Serum 2.8 g/dL (3.2-5.0); Alkaline Phosphatase 105 U/L (45-117); Anion Gap 6 (5-15); BUN 20 mg/dL (7-18); BUN/Creat Ratio 26.1 RATIO (10-20); Calcium,Total 9.5 mg/dL (8.5-10.1); Chloride 110 mmol/L (98-107); Creatinine, Serum 0.76 mg/dL (0.55-1.02); EST Glomerular Filtration Rate 101 mL/min (>60); Est Glom Filt Rate - Afr Amer 122 mL/min (>60); Estimated Creatinine Clearance 134.66 ml/min; Globulin 4.9 g/dL (2.2-4.2); Glucose 116 mg/dL (74-106); Potassium 3.7 mmol/L (3.5-5.1); Protein, Total 7.7 g/dL (6.4-8.2); Sodium Level 141 mmol/L (136-145)
[2024-11-08 22:43] LABS: Bacteria 1+ /hpf (None Seen); Red Blood Cells-Urine 5-10 SEEN /hpf (0-5); Squamous Epithelial Cells - UA 0-5 SEEN /hpf (5-10); White Blood Cells 10-25 SEEN /hpf (0-5); White Cell Cast 0-5 SEEN /lpf (None Seen)
[2024-11-08] MEDS: Ondansetron 4 MG/2 ML Vial IV (22:50)
[2024-11-08 22:57] LABS: Anisocytosis RARE; Microcytosis RARE; Ovalocyte RARE; Platelet Estimate SLT INC (ADEQ); Red Cell Morphology N CHROM NORMAL (NORM C&C)
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
[2024-11-08 23:10] VITALS: BP 114/72; PULSE 100; RESP 18; O2SAT 93
[2024-11-09] VITALS (8 sets, daily range): BP systolic 89–166; BP diastolic 58–100; PULSE 86–120; RESP 16–17; TEMP 36.7–38.1; O2SAT 92–99; BMI 36.8
--- NOTE | 2024-11-09 00:20 | ED.RN ---
This RN noticed patients HR in the 20's on monitor. Upon arriving at bedside patient was found to be unresponsive, eyes rolled back and drooling. No seizure activity was scene. Dr Garber notified of HR and patients altered LOC. No new orders. Will continue to monitor.
[2024-11-09] MEDS: Acetaminophen 500 MG Tablet 1000 MG PO (02:10)
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
[2024-11-09] MEDS: Ampicillin/Sulbactam 3 GM in 0.9% Normal Saline (100mL MB+) 100 ML IV (05:32)
[2024-11-09] MEDS: Naproxen 250 MG Tablet 500 MG PO (05:35)
[2024-11-09] MEDS: Aspirin E.C. 81 MG Tablet PO (07:51)
--- NOTE | 2024-11-09 08:00 | CT_ITS ---
STUDY: CT ABDOMEN AND PELVIS WITHOUT CONTRAST REASON FOR EXAM: Female, 23 years old. WOUND, QUADRIPLEGIC, UROSTOMY, COLECTOMY, URETHRAL STENT, INDWELLING CATHETER, PRESSURE SORES RADIATION DOSAGE (If Supplied By Facility): CTDIvol = ( 21.9 ) mGy, DLP = ( 1203.82 ) mGycm TECHNIQUE: Transaxial images were obtained from the dome of the diaphragm to the symphysis pubis without oral contrast, and without intravenous contrast. Sagittal and coronal images were reconstructed. Individualized dose optimization techniques were used for this CT. COMPARISON: Comparison is made with prior study October 20, 2024 and June 24, 2024 FINDINGS: A catheter is seen in the superior vena cava. Stable increased markings at the lung bases suggestive of atelectasis. The visualized portions of the heart are within normal limits. Normal liver. Questionable sludge along the dependent portion of the gallbladder lumen. Normal spleen. Normal pancreas. Normal bilateral adrenal glands. The right kidney is not visualized. Prior right nephrectomy. Tiny nonobstructive calculus in the posterior mid pole calyx of the left kidney. Normal visualized stomach. Normal small intestine. Normal colon. The appendix is visualized and appears normal. Normal abdominal aorta. Normal inferior vena cava. Normal retroperitoneum. A suprapubic catheter seen within a decompressed urinary bladder. An ostomy is seen in the anterior left lower quadrant. The patient is status post distal sacral resection. There is evidence of a decubitus ulceration, that to the distal sacrum with prominent soft tissue induration. CT/Abdomen/Pelvis without Cont IMPRESSION: Mild bibasilar atelectasis. Sacral decubitus ulceration with soft tissue thickening. Stable 2 mm nonobstructive left intrarenal calculus. Questionable sludge along the dependent portion of the gallbladder lumen. Electronically Signed: Brien Pittman MD at 9:37 EST ,
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
[2024-11-09 08:32] LABS: Absolute Lymphocyte Count 1.86 X10^3/uL (0.83-4.51); Absolute Neutrophil Count 14.8 X10^3/uL (2.0-7.7); Basophil# 0.04 X10^3/uL; Basophil% 0.2 % (0-1); Eosinophil# 0.01 X10^3/uL; Eosinophils% 0.1 % (0-5); Hematocrit 37.3 % (37-47); Hemoglobin 11.6 g/dL (12.0-15.0); Lymphocyte # 1.86 X10^3/ul (0.83-4.51); Lymphocyte % 10.7 % (19-41); Mean Corp Hgb Conc 31.1 g/dL (32-36); Mean Corpuscular Hgb 24.9 pg (27.0-32.0); Mean Platelet Vol. 9.8 fl (6.2-12.0); Monocyte# 0.61 X10^3/uL; Monocyte% 3.5 % (0-10); NRBC Flagged by Analyzer 0 % (0-5); Neutrophil # 14.77 X10^3/uL (2.7-7.7); POSITIVE MORPHOLOGY YES; Platelet Count 470 K/mm3 (150-450); RBC Distribution Width CV 20.6 % (11.6-14.6); Red Blood Count 4.66 M/mm3 (4.2-5.4); White Blood Count 17.4 K/mm3 (4.4-11.0)
[2024-11-09 08:34] LABS: Differential Indicated SCAN CRITERIA MET
--- NOTE | 2024-11-09 08:45 | WOUNDNOTE ---
Pt is currently off unit for test. will assess sacral wound and reapply the wound VAC when patient returns.
[2024-11-09] MEDS: Acetaminophen 325 MG Tablet 650 MG PO (08:54)
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
[2024-11-09 09:09] LABS: Anion Gap 8 (5-15); BUN 20 mg/dL (7-18); BUN/Creat Ratio 19.8 RATIO (10-20); Calcium,Total 10.4 mg/dL (8.5-10.1); Chloride 109 mmol/L (98-107); Creatinine, Serum 1.01 mg/dL (0.55-1.02); EST Glomerular Filtration Rate 73 mL/min (>60); Est Glom Filt Rate - Afr Amer 88 mL/min (>60); Estimated Creatinine Clearance 103.43 ml/min; Glucose 138 mg/dL (74-106); Potassium 4.1 mmol/L (3.5-5.1); Sodium Level 142 mmol/L (136-145)
[2024-11-09 09:22] LABS: Anisocytosis 1+
[2024-11-09] MEDS: LORazepam 1 MG Tablet PO ×2 (09:30→17:03)
[2024-11-09] MEDS: Piperacil/Tazobactam 3.375 GM in 0.9% Normal Saline (50mL MB+) 50 ML IV ×2 (09:39→18:05)
[2024-11-09] MEDS: 0.9% Normal Saline (1000mL) 1,000 ML 75 ML IV (09:39)
[2024-11-09] MEDS: 0.9% Saline Lock 10 ML Syringe IV (09:40)
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
--- NOTE | 2024-11-09 09:46 | CPS ---
EEG competed by this RT. Patient extremely difficult to get hooked up to EEG. Patient consistently moving throughout procedure. EKGs leads for EEG applied multiple times. No sedation for EEG per Dr.Brown AYALA. No photic or HV able to be completed due to patient not able to follow commands. This RT texted above to [facility] EEG Physician.
[2024-11-09] MEDS: Ondansetron ODT 4 MG Tablet 8 MG PO (09:59)
[2024-11-09] MEDS: Baclofen 10 MG Tablet 40 MG PO ×2 (11:19→21:55)
[2024-11-09] MEDS: Escitalopram Oxalate 20 MG Tablet PO (11:20)
[2024-11-09] MEDS: tiZANidine HCl 2 MG Tablet 4 MG PO ×2 (11:20→21:57)
[2024-11-09] MEDS: Methenamine Hippurate 1 GM Tablet PO ×2 (11:20→21:56)
[2024-11-09] MEDS: Tolterodine Tartrate 2 MG CAP.SA PO (11:20)
[2024-11-09] MEDS: Cholecalciferol (VIT D3) 25 MCG TABLET (1,000 UNITS) PO (11:21)
[2024-11-09] MEDS: Nystatin Powder 15gm Bottle 1 APPLIC TOPICAL (11:22)
--- NOTE | 2024-11-09 11:36 | WOUNDNOTE ---
wound photo: sacrum
[2024-11-09] MEDS: ACETIC ACID 1,000 ML IRRIG.SOLN 1000 ML IRRIGATION (13:46)
[2024-11-09] MEDS: Linezolid 600 MG 600 MG/300 ML BAG 200 MG IV ×2 (15:26→21:54)
[2024-11-10] MEDS: Piperacil/Tazobactam 3.375 GM in 0.9% Normal Saline (50mL MB+) 50 ML IV ×4 (00:53→23:30)
[2024-11-10 03:48] VITALS: BP 101/78; PULSE 75; RESP 16; TEMP 36.1; O2SAT 99
[2024-11-10] MEDS: 0.9% Normal Saline (1000mL) 1,000 ML 75 ML IV (05:09)
[2024-11-10 06:42] LABS: Absolute Neutrophil Count 5.1 X10^3/uL (2.0-7.7); Basophil# 0.07 X10^3/uL; Basophil% 0.8 % (0-1); Eosinophil# 0.45 X10^3/uL; Eosinophils% 5.3 % (0-5); Hemoglobin 8.9 g/dL (12.0-15.0); Lymphocyte % 27.3 % (19-41); Mean Corp Hgb Conc 30.7 g/dL (32-36); Mean Corpuscular Hgb 24.7 pg (27.0-32.0); Mean Corpuscular Volume 80.6 fL (81-99); Mean Platelet Vol. 10.1 fl (6.2-12.0); Monocyte# 0.54 X10^3/uL; Monocyte% 6.4 % (0-10); NRBC Flagged by Analyzer 0 % (0-5); Neutrophil # 5.05 X10^3/uL (2.7-7.7); Neutrophil % 59.8 % (47-70); POSITIVE MORPHOLOGY YES; Platelet Count 330 K/mm3 (150-450); RBC Distribution Width CV 20.4 % (11.6-14.6); RBC Distribution Width SD 59.3 fl (35.1-43.9); White Blood Count 8.4 K/mm3 (4.4-11.0)
[2024-11-10 06:58] LABS: Differential Indicated SCAN CRITERIA MET
[2024-11-10 07:25] LABS: Anion Gap 6 (5-15); BUN 21 mg/dL (7-18); BUN/Creat Ratio 19.8 RATIO (10-20); Calcium,Total 9.1 mg/dL (8.5-10.1); Chloride 109 mmol/L (98-107); Creatinine, Serum 1.06 mg/dL (0.55-1.02); EST Glomerular Filtration Rate 69 mL/min (>60); Est Glom Filt Rate - Afr Amer 83 mL/min (>60); Estimated Creatinine Clearance 98.55 ml/min; Glucose 78 mg/dL (74-106); Potassium 3.4 mmol/L (3.5-5.1); Sodium Level 140 mmol/L (136-145)
[2024-11-10 07:47] LABS: Differential Comment SCANNED
[2024-11-10] MEDS: LORazepam 2 MG/ML Syringe 1 MG IV (08:51)
[2024-11-10] MEDS: 0.9% Saline Lock 10 ML Syringe IV (08:51)
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
[2024-11-10 10:00] VITALS: PULSE 85; RESP 19; TEMP 36.6; O2SAT 98
[2024-11-10] MEDS: Potassium Chloride 10mEq/100mL 10 MEQ/100 ML IV.SOLN. 100 MEQ IV BOLUS ×4 (14:16→18:25)
[2024-11-10] MEDS: Tolterodine Tartrate 2 MG CAP.SA PO (14:18)
[2024-11-10] MEDS: Baclofen 10 MG Tablet 40 MG PO ×2 (14:18→23:34)
[2024-11-10] MEDS: Methenamine Hippurate 1 GM Tablet PO ×2 (14:18→23:34)
[2024-11-10] MEDS: tiZANidine HCl 2 MG Tablet 4 MG PO ×2 (14:18→23:34)
[2024-11-10] MEDS: Aspirin E.C. 81 MG Tablet PO (14:18)
[2024-11-10] MEDS: Cholecalciferol (VIT D3) 25 MCG TABLET (1,000 UNITS) PO (14:19)
[2024-11-10] MEDS: Enoxaparin 40 MG/0.4 ML Syringe SC (14:19)
[2024-11-10] MEDS: Escitalopram Oxalate 20 MG Tablet PO (14:19)
[2024-11-10] MEDS: Polyethylene Glycol 3350 17 GM PACKET PO (14:20)
[2024-11-10] MEDS: Nystatin Powder 15gm Bottle 1 APPLIC TOPICAL ×2 (14:21→23:35)
[2024-11-10] MEDS: ACETIC ACID 1,000 ML IRRIG.SOLN 1000 ML IRRIGATION (14:48)
[2024-11-10] MEDS: Linezolid 600 MG 600 MG/300 ML BAG 200 MG IV ×2 (15:21→23:32)
[2024-11-10 16:00] VITALS: BP 112/62; PULSE 94; RESP 18; TEMP 36.9; O2SAT 97
[2024-11-10 22:45] VITALS: BP 122/70; PULSE 82; RESP 22; TEMP 36.3; O2SAT 96
[2024-11-11 03:39] VITALS: BMI 36.8
[2024-11-11 05:55] VITALS: BP 125/74; PULSE 81; RESP 20; TEMP 36.6; O2SAT 95
[2024-11-11] MEDS: Piperacil/Tazobactam 3.375 GM in 0.9% Normal Saline (50mL MB+) 50 ML IV ×2 (06:04→13:44)
[2024-11-11 07:16] LABS: Anion Gap 6 (5-15); BUN 19 mg/dL (7-18); BUN/Creat Ratio 16.1 RATIO (10-20); Calcium,Total 9.1 mg/dL (8.5-10.1); Chloride 111 mmol/L (98-107); Creatinine, Serum 1.18 mg/dL (0.55-1.02); EST Glomerular Filtration Rate 61 mL/min (>60); Est Glom Filt Rate - Afr Amer 74 mL/min (>60); Estimated Creatinine Clearance 88.56 ml/min; Glucose 94 mg/dL (74-106); Magnesium 1.7 mg/dL (1.6-2.6); Sodium Level 141 mmol/L (136-145)
[2024-11-11 08:55] VITALS: BP 107/73; PULSE 76; RESP 16; TEMP 36.8; O2SAT 97
[2024-11-11] MEDS: Aspirin E.C. 81 MG Tablet PO (08:57)
[2024-11-11] MEDS: Methenamine Hippurate 1 GM Tablet PO (08:58)
[2024-11-11] MEDS: Tolterodine Tartrate 2 MG CAP.SA PO (08:58)
[2024-11-11] MEDS: Escitalopram Oxalate 20 MG Tablet PO (08:59)
[2024-11-11] MEDS: tiZANidine HCl 2 MG Tablet 4 MG PO (08:59)
[2024-11-11] MEDS: Baclofen 10 MG Tablet 40 MG PO (08:59)
[2024-11-11] MEDS: Enoxaparin 40 MG/0.4 ML Syringe SC (08:59)
[2024-11-11] MEDS: Cholecalciferol (VIT D3) 25 MCG TABLET (1,000 UNITS) PO (09:00)
[2024-11-11] MEDS: Nystatin Powder 15gm Bottle 1 APPLIC TOPICAL (09:00)
[2024-11-11] MEDS: Linezolid 600 MG 600 MG/300 ML BAG 200 MG IV (10:11)
--- NOTE | 2024-11-11 10:26 | CASEMGMT ---
Discharge Planning Resumption HH referral sent via [facility] to [facility] with IV order and note asking for it to be forwarded to [facility]. Slime Fleming DC Planning Asst.
--- NOTE | 2024-11-11 10:53 | CON.PCM.ID_ITS ---
Assessment & Plan Assessment/Plan (1) Quadriplegia: (2) Recurrent seizures: (3) Acute osteomyelitis of sacrum: PLAN: 23 F with quadriplegia, admit 10/2024 with sacral osteo. Taken to OR 10/21/[address] Gaona for I&D. Wound cx with MR-CoNS and [place]. Discharged on 6 weeks po doxy and iv unasyn. Stop date 12/03/24 via chest port. Now with new seizure. Will write for doxy and iv zosyn with labs and 12/03/24 stop date. Will follow, thank you HPI Consult Data Date of Consult: 11/11/24 HPI Narrative Reason for Consultation: osteo HPI Narrative: KIERRA NARANJO, is a 23 F with quadriplegia, admit 10/2024 with sacral osteo. Taken to OR 10/21/[address] Gaona for I&D. Wound cx with MR-CoNS and [place]. Discharged on 6 weeks po doxy and iv unasyn. Stop date 12/03/24 via chest port. Reports wound has been improving as outpt. No issues with abx except for some mild n/v/d. Admitted 11/09/24 from ED with reported seizure at home. Abx changed to linezolid and zosyn, seen by neurology, feeling back to baseline this AM. Full ROS performed and neg except as noted above. PENDING SALE TO [facility] Medical History (Updated 11/11/24 @ 10:[address] 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 New onset seizure Paraplegic spinal paralysis Urinary tract infection Neck fracture Single kidney Double uterus Wounds, multiple Home Medications ?Medication ?Instructions ?Recorded ?Last Taken ?Type aspirin 81 mg tablet,delayed 81 mg PO DAILY heart health 07/17/21 10/27/22 08:00 History release baclofen 20 mg tablet 40 mg PO BID muscle spasms 07/17/21 10/27/22 History 2200 cholecalciferol (vitamin D3) 25 25 mcg PO DAILY supplement 07/17/21 10/27/22 08:00 History mcg (1,000 unit) capsule (Vitamin D3) docusate sodium 100 mg capsule 100 mg PO TID PRN stool softener 07/17/21 10/27/22 08:00 History escitalopram oxalate 20 mg tablet 20 mg PO DAILY depression 07/17/21 10/27/22 08:00 History nitroglycerin 2 % transdermal 1 inch transdermal PRN PRN 07/17/21 Unknown History ointment autonomic dysreflexia methenamine hippurate 1 gram 1 g PO Q12H UTI prevention 09/12/22 10/27/22 22:00 History tablet (Hiprex) nystatin 100,000 unit/gram topical 1 applic topical BID skin 09/12/22 Unknown History powder irritation ondansetron 4 mg disintegrating 8 mg (2 x 4 mg) PO Q8H PRN PRN 08/23/23 Unknown Rx tablet Nausea #20 tabs oxybutynin chloride 5 mg 5 mg PO DAILY overactive bladder 10/11/23 Unknown History tablet,extended release 24 hr tizanidine 4 mg tablet 4 mg PO Q12H muscle spasms 10/11/23 Unknown History white petrolatum 86.5 % topical 1 applic topical TID Lip ointment 11/09/23 Unknown Rx ointment (Critic-Aid Clear) #71 grams naproxen 500 mg tablet 500 mg PO BID PRN pain 10/20/24 Unknown History acetic acid 0.25 % irrigation 1,000 ml irrigation DAILY #6,000 mL 10/25/24 Unknown Rx solution ondansetron 4 mg disintegrating 4 mg PO Q6H PRN nausea and 11/02/24 Unknown Rx tablet vomiting #12 tabs doxycycline monohydrate 100 mg 100 mg PO BID 22 days #0 caps 11/11/24 Unknown Rx capsule piperacillin-tazobactam 3.375 gram 3.375 g IV Q8H 22 days 11/11/24 Unknown Rx intravenous solution Allergy/AdvReac Type Severity Reaction Status Date / Time vancomycin Allergy Severe Other Verified 11/08/24 22:04 Family History unable to obtain Surgical History History of tracheostomy History of urostomy History of cystoscopy History of colectomy History of urethral stent S/P cervical spinal fusion H/O thumb surgery Social History household members: family Smoking Status: Former smoker alcohol intake: never substance use type: does not use Physical Exam Const alert, oriented x3 and no apparent distress General Appearance: cooperative HEENT normocephalic and head/scalp atraumatic Eyes PERRL and EOMs intact bilaterally Neck supple and No nodes Resp normal air movement and clear to auscultation bilaterally Cardio regular rate and regular rhythm GI soft to palpation, non-tender and non-distended Extremity General Extremity: edema Skin Skin Narrative: no new rash Neuro CN's II-XII intact bilaterally Lab / Micro Data Attestation: I reviewed the patient's lab results. 11/10/24 05:57 11/11/24 06:17 Labs: Laboratory Results - last 24 hr 11/11/24 06:17: Sodium 141, Potassium 4.0, Chloride 111 H, Carbon Dioxide 24.0, Anion Gap 6, BUN 19 H, Creatinine 1.18 H, Estim Creat Clear Calc 88.56, Est GFR (MDRD) Af Amer 74, Est GFR (MDRD) Non-Af 61, BUN/Creatinine Ratio 16.1, Glucose 94, Calcium 9.1, Magnesium 1.7 Micro: Microbiology 11/09/24 02:07 Blood Culture (Wb) - Line Draw Blood Culture - Preliminary No growth in 48 hours. 11/08/24 02:24 Urine Catheter - Ma Urine Culture - Preliminary Culture exhibits no growth. Rhythm Strip Rhythm Strip: Sinus Tach Rate: 104 Ectopy: None
--- NOTE | 2024-11-11 11:16 | WOUNDNOTE ---
in to reassess the ostomy appliance. there was just a Coloplast bag stuck to the skin. no flange in place. pt unsure who had changed the appliance. removed the bag. some mild irritation noted to the peristomal skin. cleansed skin with warm water pat dry. applied a new 2 piece Bryan appliance with a small amount of stoma paste.
--- NOTE | 2024-11-11 11:19 | WOUNDNOTE ---
Pt being discharged home today per Dr Barragan. asked pt if she perfers VAC to be changed today prior to discharge or have home health change the VAC dressing tomorrow. pt prefers the VAC be left on a Tasqjc-Gtzulmajz-[id number] schedule as previous to admission. wound VAC dressing intact at this time. Good seal noted at 125mmHg low continuous suction.
--- NOTE | 2024-11-11 13:19 | DS.PCM_ITS ---
Providers Date of Admission: 11/09/24 Date of Discharge: 11/11/24 Primary Care Physician: Dr. Dao Paulino MD Consultations 11/09/24 07:24 Consult: Onc/Wound/hotel assistant manager Routine Comment: Reason for Consult:: chronic coccyx wound/ wound vac 11/09/24 08:08 Consult: Tele-Neurology Routine Consulting Provider: [facility] Reason for Consult: seizures--> new onset x3 EMERGENT Consult: No MD Notified: Yes Date Notified: 11/09/24 Time Notified: 08:27 Method of Notification: Answering Service Nursing Unit Staff Notify [facility] of Tele-Neurology Consult: Yes 11/09/24 08:16 Consult: Plastic Surgery Routine Consulting Provider: Joseph Gaona Reason for Consult: sacral wound EMERGENT Consult: No MD Notified: Yes Date Notified: 11/09/24 Time Notified: 08:17 Method of Notification: Verbal 11/10/24 13:03 Consult: Infectious Disease Routine Consulting Provider: Joseph Nguyen Reason for Consult: ABX recommendations EMERGENT Consult: No MD Notified: Yes Date Notified: 11/10/24 Time Notified: 13:03 Method of Notification: Verbal Reason For Visit: NEW ONSET SEIZURE Diagnosis Discharge Diagnosis (1) Quadriplegia: Status: Acute Code(s): G82.50 - Quadriplegia, unspecified (2) Recurrent seizures: Status: Acute Code(s): G40.909 - Epilepsy, unspecified, not intractable, without status epilepticus (3) Acute osteomyelitis of sacrum: Status: Acute Code(s): M46.28 - Osteomyelitis of vertebra, sacral and sacrococcygeal region Medications at Discharge Home Medications aspirin 81 mg tablet,delayed release 81 mg PO DAILY heart health 07/17/21 baclofen 20 mg tablet 40 mg PO BID muscle spasms 07/17/21 cholecalciferol (vitamin D3) 25 mcg (1,000 unit) capsule (Vitamin D3) 25 mcg PO DAILY supplement 07/17/21 docusate sodium 100 mg capsule 100 mg PO TID PRN stool softener 07/17/21 escitalopram oxalate 20 mg tablet 20 mg PO DAILY depression 07/17/21 nitroglycerin 2 % transdermal ointment 1 inch transdermal PRN PRN autonomic dysreflexia 07/17/21 methenamine hippurate 1 gram tablet (Hiprex) 1 g PO Q12H UTI prevention 09/12/22 nystatin 100,000 unit/gram topical powder 1 applic topical BID skin irritation 09/12/22 ondansetron 4 mg disintegrating tablet 8 mg (2 x 4 mg) PO Q8H PRN PRN Nausea #20 tabs 08/23/23 oxybutynin chloride 5 mg tablet,extended release 24 hr 5 mg PO DAILY overactive bladder 10/11/23 tizanidine 4 mg tablet 4 mg PO Q12H muscle spasms 10/11/23 white petrolatum 86.5 % topical ointment (Critic-Aid Clear) 1 applic topical TID Lip ointment #71 grams 11/09/23 naproxen 500 mg tablet 500 mg PO BID PRN pain 10/20/24 acetic acid 0.25 % irrigation solution 1,000 ml irrigation DAILY #6,000 mL 10/25/24 ondansetron 4 mg disintegrating tablet 4 mg PO Q6H PRN nausea and vomiting #12 tabs 11/02/24 doxycycline monohydrate 100 mg capsule 100 mg PO BID 22 days #0 caps 11/11/24 piperacillin-tazobactam 3.375 gram intravenous solution 3.375 g IV Q8H 22 days 11/11/24 Hospital Course Summary of Care Provided Minutes Spent on Discharge: 38 Hospital Course: Patient is a 23-year-old white female who presents emergency department [facility] earlier this morning 11/09/2024 with new onset seizure. Upon presentation patient reported that she had a seizure at home which she has never had previously. She also was noted to have fever. It was reported that she had a short tonic-clonic seizure that was with weakness in the emergency department as well that lasted less than 60 seconds and did not require any medication for cessation. Patient was postictal following that episode. She did have some documented bradycardia as low as 20 bpm during her seizure activity but heart rates have otherwise been stable. She is not on any rate controlling medication at baseline. She evidently had some nausea and vomiting after returning from x- ray at which time she was given Zofran then she had a second seizure. Patient did have a recent admission here for sacral wound/osteomyelitis of the sacrum and has been on IV Unasyn and doxycycline to complete antibiotic course which is to be extended for 6 weeks with an end date in early December. Patient is a known quadriplegic and has a chronic indwelling Ma as well as a diverting ostomy. VAC was then placed over the wound from her last hospitalization. Vital signs on presentation showed a temperature of 99.1 with a Tmax in the ED at 100 and 0.5, heart rate was 109, blood pressure was 195/117 with a repeat of 114/72, respiratory rate was 16 oxygen saturation was 96% on room air. CBC shows a normal white count at 11.0 but she does have a left shift with 74.3% neutrophilia. Hemoglobin is much improved and currently 11.2. Chemistry panel is overtly unremarkable. Liver functions normal. UA is consistent with some mild dehydration having a specific gravity of 1.02, positive for protein, occult blood, leuk esterase, white cells and bacteria. Cultures were obtained in the emergency department. She was admitted to the PCU and maintained on her home antibiotics initially however with ongoing fevers she was transitioned to broader coverage, orders for an EEG and MRI of the brain with and without contrast were put in and a consultation to neurology. Etiology of the fever is unclear. She only had yeastlike organisms in her urine culture which previously was identified as Nelly albicans. Blood cultures are negative, respiratory viral panel was negative and COVID rapid was negative. We did a CT of her pelvis to reimage her sacral wound which appears to be stable and improving clinically. Plastic surgery did evaluate the patient and felt she was clinically improving as well. Wound VAC was maintained by the ostomy nurse. She was monitored on telemetry and had no further bradycardia. She also had no further seizures. We tried 3 times to get an MRI but patient did not tolerate this. EEG was unremarkable. She was seen by neurology and they were unclear whether these were actually seizures or not. They recommended treating her underlying infection, considering changing her antibiotics, and continuing monitoring her neurological status. She remained stable. Her white count normalized. She had no further fevers. ID was consulted and recommended discharging her with Zosyn and continue her doxycycline as previously ordered. She did miss her follow-up appointment at the wound center we will have this rescheduled for next week. She is to follow-up with her primary care physician within the next 2 weeks as able and plastic surgery as previously recommended. Discharge diagnoses: Seizure versus convulsive syncope Fever-resolved Bradycardia-resolved Acute on chronic sacral pressure wound stage IV with suspected sacral osteomyelitis Chronic microcytic anemia Quadriplegia secondary to cervical fracture History of autonomic dysreflexia Neurogenic bladder Constipation Obesity Physical Exam Const alert, oriented x3, no apparent distress, no limitations and well nourished; Negative for average body habitus or healthy appearing Constitutional Narrative: Young, white female sitting up in bed, family at bedside, appears comfortable, nontoxic, watching television General Appearance: cooperative, comfortable, well kempt and well developed Exam Limitations: no limitations Nutritional Appearance: obese HEENT normocephalic, head/scalp atraumatic, hearing grossly normal bilaterally and moist oral mucous membranes HEENT Narrative: Mallampati 3, no thrush Eyes PERRL and conjunctivae normal Eyes Narrative: no scleral icterus Neck no lymphadenopathy and supple Neck Narrative: Trachea midline, neck is short and thick Resp normal respiratory effort, normal air movement, no retractions, no use of accessory muscles and clear to auscultation bilaterally Auscultation: Negative for rales, rhonchi or wheezes Cardio regular rate, regular rhythm, S1 normal heart sound, S2 normal heart sound, no murmurs, no rub, no gallops and no clicks GI normal to inspection, nondistended, normoactive bowel sounds, soft to palpation and non-tender GI Narrative: Good ostomy output Extremity no clubbing, cyanosis or edema Extremity Narrative: Chronic trace bilateral lower extremity edema from quadriplegia, no cyanosis or clubbing Skin skin turgor normal and no jaundice Skin Narrative: wound vac in place Neuro oriented x3 Neuro Narrative: Patient was quadriplegia at C6-7 with limited use of upper extremity Speech: speech normal Psych cooperative and affect normal Psych Narrative: Very pleasant, interacts appropriately Weight / BMI Weight Weight: 100.471 kg Body Mass Index (BMI) 36.8 ABG / Lab / Microbiology Data 11/10/24 05:57 11/11/24 06:17 Laboratory: Laboratory Results - last 24 hr 11/11/24 06:17: Sodium 141, Potassium 4.0, Chloride 111 H, Carbon Dioxide 24.0, Anion Gap 6, BUN 19 H, Creatinine 1.18 H, Estim Creat Clear Calc 88.56, Est GFR (MDRD) Af Amer 74, Est GFR (MDRD) Non-Af 61, BUN/Creatinine Ratio 16.1, Glucose 94, Calcium 9.1, Magnesium 1.7 Microbiology: Microbiology 11/08/24 02:24 Urine Catheter - Ma Urine Culture - Preliminary Yeast Like Organism 11/09/24 02:07 Blood Culture (Wb) - Line Draw Blood Culture - Preliminary No growth in 48 hours. 11/09/24 09:08 Nasal Secretion SARS-CoV-2 Antigen (Rapid) - Final 11/09/24 09:00 Mucosa - Nasopharyngeal Respiratory Panel (PCR) - Final D/C Instructions Discharge Diet: No restrictions DC O2, CPAP, BIPAP Needs Additional Home O2 Discharge instructions: No DC home with Oxygen: No Meaningful Use Info Meaningful Use Meaningful Use Diagnoses (Choose all that apply): None applicable Ischemic Stroke Statin Dosing Therapy Reference: STATIN DOSE THERAPY REFERENCE: * Patients > 75 years receive moderate or high dose statin therapy. * Patients 75 years or YOUNGER should receive HIGH intensity statin dose unless contraindicated. You will be required to document reason for non-treatment if statin daily dose does not meet guidelines. HIGH DOSE STATIN THERAPY DAILY Atorvastatin > than or = to 40 mg Rosuvastatin > than or = to 20 mg Amlodipine + Atorvastatin > than or = to 2.5/40 mg Ezetimibe + Simvastatin 10/80 mg Simvastatin 80mg Discharge Plan Admission Admit Date/Time: 11/09/24 02:43 Primary Reason for Your Visit: possible seizure Attending Provider: Angelika Barragan Primary Care Provider: Dao Paulino Consulting Providers: Zach Mcnally; Pratik Reveles; Sonam Taylor; Nohemy Zhao; Armani Geller; Caio Delatorre; Josep Owens; LAURIE ZEPEDA; Pauline Deshpande; Charis Hebert; Kong Sin; Zuly Jacobsen; Joseph Gaona; Brendon Tirado; Kaitlin Hoover; Jossy Bolden; Cornelius Tirado; Yuridia Subramanian; Leonel Villagomez; Fernadno Parry; Alexandre Lentz; Andreina Olsen; Shantelle Shah; Gera Last; Nettie Parks; Sina Pena; Sheila Barragan; Ammon Mensah; Joseph Nguyen Discharge Orders/Prescriptions Prescriptions: New piperacillin-tazobactam 3.375 gram recon soln 3.375 g IV Q8H 22 Days Rx Instructions: stop date 12/03/24. Dx: sacral osteo. Weekly bmp, cbc, and esr. Fax to [phone]. Routine port care per protocol. Continued aspirin 81 mg Tablet,Delayed Release (Dr/Ec) 81 mg PO DAILY baclofen 20 mg Tablet 40 mg PO BID nitroglycerin 2 % Ointment 1 inch TRANSDERMAL PRN PRN (Reason: autonomic dysreflexia) cholecalciferol (vitamin D3) [Vitamin D3] 25 mcg (1,000 unit) Capsule 25 mcg PO DAILY docusate sodium 100 mg Capsule 100 mg PO TID PRN (Reason: stool softener) escitalopram oxalate 20 mg Tablet 20 mg PO DAILY methenamine hippurate [Hiprex] 1 gram tablet 1 g PO Q12H Rx Instructions: can be continued indefinitely. For UTI prevention. nystatin 100,000 unit/gram powder 1 applic topical BID tizanidine 4 mg tablet 4 mg PO Q12H Patient Comments: Take 1 tablet by mouth two times a day. oxybutynin chloride 5 mg tablet extended release 24hr 5 mg PO DAILY Patient Comments: Take 1 tablet by mouth once daily. ondansetron 4 mg tablet,disintegrating 8 mg PO Q8H PRN PRN (Reason: Nausea) Qty: 20 0RF Critic-Aid Clear 86.5 % ointment 1 applic topical TID Qty: 71 2RF ondansetron 4 mg tablet,disintegrating 4 mg PO Q6H PRN (Reason: nausea and vomiting) Qty: 12 0RF doxycycline monohydrate 100 mg capsule 100 mg PO BID 22 Days Qty: 0 0RF naproxen 500 mg tablet 500 mg PO BID PRN (Reason: pain) acetic acid 0.25 % Solution 1,000 ml irrigation DAILY Qty: 6000 0RF Discontinued ampicillin-sulbactam 3 gram Recon Soln 3 g IV Q8 38 Days Qty: 114 0RF Rx Instructions: stop date 12/03/24. Dx: sacral osteo. Weekly bmp, cbc, and esr. Fax to [phone]. Routine port care per protocol. Other Ambulatory Orders: Wound Care Referral (Routine) Timeframe: [id number] Facility: [facility] - Location[facility] Ordered By: Dr. Angelika Barragan Referrals / Follow Up: Dao Paulino MD [Primary Care Provider] - Within 2 Weeks Disposition Disposition (needs filled in before D/C Order can be placed): Home Health Service Charges/Coding Visit Charges Inpatient E&M: 05657 Disch Hosp >30min
[2024-11-11 13:49] VITALS: BP 107/75; PULSE 76; RESP 16; TEMP 37.4; O2SAT 95
--- NOTE | 2024-11-11 14:25 | CASEMGMT ---
CONRAD TILLMAN updated that patient will be discharging today with updated IV ATB, script received and provided to DC business planning director to updated and arrange delivery with [facility]. CONRAD TILLMAN called patient's mother to update regarding discharge plan for resumption of [facility] and new IV ATBs. Mother requesting that transport for be setup by stretcher for patient to discharge home. Mother had no further questions or concerns. CONRAD TILLMAN updated discharge plan. DC business planning director updated to setup transport to home.
--- NOTE | 2024-11-11 14:51 | CASEMGMT ---
Discharge Planning Cot transport was scheduled with [facility] with pickup time of 5p. Nursing, pt, RN CM, and pts mother updated. Slime Fleming DC Planning Asst.
[2024-11-11 16:11] VITALS: BP 98/62; PULSE 87; RESP 16; TEMP 37.8; O2SAT 93
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
== END 2024-11-11 17:45 | disposition home health service (06) | DRG 53 ==
LOC: ED 11-09 02:02 → PCU 11-09 04:07
PROVIDERS: Admitting Provider Family Medicine; Emergency Provider Emergency Medicine; PCP Family Medicine; Visit Provider Internal Medicine
DX: R56.9 Unspecified convulsions (principal); L89.154 Pressure ulcer of sacral region, stage 4; G82.54 Quadriplegia, C5-C7 incomplete; Z93.3 Colostomy status; M46.28 Osteomyelitis of vertebra, sacral and sacrococcygeal region; Z66 Do not resuscitate; E86.0 Dehydration; D50.9 Iron deficiency anemia, unspecified; Z68.36 Body mass index [BMI] 36.0-36.9, adult; G90.4 Autonomic dysreflexia; R00.1 Bradycardia, unspecified; K59.00 Constipation, unspecified; N31.9 Neuromuscular dysfunction of bladder, unspecified; Z11.52 Encounter for screening for COVID-19; N92.0 Excessive and frequent menstruation with regular cycle; E66.9 Obesity, unspecified; Z88.1 Allergy status to other antibiotic agents; Z79.82 Long term (current) use of aspirin; Z87.891 Personal history of nicotine dependence; Z79.899 Other long term (current) drug therapy
CPT/HCPCS: 36415; 36591; 70450; 71045; 74176; 80048; 80053; 81001; 83735; 85025; 87040; 87086; 87088; 87426; 87633; 93005; 95819; 96361; 96365; 96366; 96367; 96368; 96372; 96375; 99221; 99285; 99406; J2020; A4216; G0378; J0295; J2405

== ENCOUNTER 2024-11-14 00:51 | Emergency (ER) | payer MEDICAID, SELFPAY ==
[2024-11-14 00:52] VITALS: BP 187/106; PULSE 96; RESP 18; TEMP 36.9; O2SAT 99; BMI 38.6
--- NOTE | 2024-11-14 01:07 | CT_ITS ---
STUDY: CT ABDOMEN AND PELVIS WITH CONTRAST REASON FOR EXAM: Female, 23 years old. abd pain RADIATION DOSAGE (If Supplied By Facility): CTDIvol = ( 15.3 ) mGy, DLP = ( 1391.51 ) mGycm TECHNIQUE: IV 100mL Isovue-370 was administered. Transaxial images were obtained from the dome of the diaphragm to the symphysis pubis in the portal venous phase. Multiplanar coronal and sagittal images were reformatted. Individualized Dose Optimization Techniques Were Used For This CT. COMPARISON: Prior study dated: 11/09/2024 FINDINGS: LOWER CHEST: Bibasilar atelectasis. No cardiomegaly or pericardial effusion. LIVER: The liver is normal in size, shape, and attenuation. Focal fatty infiltration along the falciform. No focal mass. GALLBLADDER AND BILIARY TREE: The gallbladder is normally distended. No gallstones. No gallbladder wall thickening or edema. No pericholecystic fluid. No intra- or extrahepatic biliary ductal dilation. PANCREAS: No focal cystic or solid mass. SPLEEN: Normal size without focal cystic or solid mass. ADRENAL GLANDS: No nodules. KIDNEYS AND URETERS: [Absent right kidney. Normal position of the left kidney with normal enhancement. No hydronephrosis or nephrolithiasis. PERITONEUM: No ascites or free air. No other fluid collection. BOWEL: The stomach is unremarkable. Normal caliber small bowel. No obstruction. Left lower quadrant colostomy. No colonic wall thickening. No evidence of acute appendicitis. LYMPH NODES: No enlarged mesenteric or retroperitoneal lymph nodes. VESSELS: Aorta is non-dilated. URINARY BLADDER: Suprapubic catheter in place. Decompressed bladder. REPRODUCTIVE ORGANS: Bicornuate uterus. No adnexal mass. ABDOMINAL WALL: Left lower quadrant colostomy. Mild anasarca/inflammation over the right hip. BONES: No lytic or blastic abnormality. Likely chronic erosive change of the coccyx, with appearance unchanged from prior. CT/Abdomen/Pelvis W IV Cont ONLY IMPRESSION: No acute finding. No inflammatory changes. Left lower quadrant colostomy. Electronically Signed: Temo Perez MD at 3:41 EST ,
[2024-11-14 01:23] LABS: Absolute Lymphocyte Count 1.49 X10^3/uL (0.83-4.51); Absolute Neutrophil Count 5.3 X10^3/uL (2.0-7.7); Basophil# 0.03 X10^3/uL; Basophil% 0.4 % (0-1); Eosinophil# 0.39 X10^3/uL; Eosinophils% 5.2 % (0-5); Hematocrit 35.6 % (37-47); Hemoglobin 11.1 g/dL (12.0-15.0); Lymphocyte # 1.49 X10^3/ul (0.83-4.51); Lymphocyte % 19.8 % (19-41); Mean Corp Hgb Conc 31.2 g/dL (32-36); Mean Corpuscular Hgb 24.8 pg (27.0-32.0); Mean Corpuscular Volume 79.6 fL (81-99); Mean Platelet Vol. 9.9 fl (6.2-12.0); Monocyte# 0.33 X10^3/uL; Monocyte% 4.4 % (0-10); NRBC Flagged by Analyzer 0 % (0-5); Neutrophil # 5.27 X10^3/uL (2.7-7.7); Neutrophil % 69.9 % (47-70); POSITIVE MORPHOLOGY YES; Platelet Count 358 K/mm3 (150-450); RBC Distribution Width CV 20.9 % (11.6-14.6); RBC Distribution Width SD 58.6 fl (35.1-43.9); Red Blood Count 4.47 M/mm3 (4.2-5.4); White Blood Count 7.5 K/mm3 (4.4-11.0)
[2024-11-14 01:25] LABS: Differential Indicated SCAN CRITERIA MET
[2024-11-14] MEDS: proCHLORPERazine 10 MG/2 ML Vial IV (01:26)
[2024-11-14] MEDS: 0.9% Normal Saline (1000mL) 1,000 ML 999 ML IV (01:26)
[2024-11-14] MEDS: DiphenhydrAMINE 50 MG/ML Syringe 12.5 MG IV (01:26)
[2024-11-14 01:49] LABS: Anisocytosis 1+; Differential Comment SCANNED; Platelet Estimate ADEQUATE (ADEQ)
[2024-11-14 02:05] LABS: AST(SGOT) 25 U/L (15-37); Alanine Aminotransfer ALT/SGPT 44 U/L (13-56); Albumin, Serum 2.6 g/dL (3.2-5.0); Alkaline Phosphatase 85 U/L (45-117); Anion Gap 7 (5-15); BUN 18 mg/dL (7-18); BUN/Creat Ratio 21.4 RATIO (10-20); Bilirubin, Direct 0.15 mg/dL (0.00-0.30); Calcium,Total 9.2 mg/dL (8.5-10.1); Chloride 111 mmol/L (98-107); Creatinine, Serum 0.84 mg/dL (0.55-1.02); EST Glomerular Filtration Rate 90 mL/min (>60); Est Glom Filt Rate - Afr Amer 109 mL/min (>60); Estimated Creatinine Clearance 127.71 ml/min; Globulin 4.4 g/dL (2.2-4.2); Glucose 107 mg/dL (74-106); Lipase 22 U/L (13-75); Magnesium 1.7 mg/dL (1.6-2.6); Potassium 3.6 mmol/L (3.5-5.1); Sodium Level 144 mmol/L (136-145)
[2024-11-14 02:52] VITALS: BP 148/99; PULSE 85; RESP 16; O2SAT 99
[2024-11-14 04:00] VITALS: BP 146/93; PULSE 89; RESP 18; O2SAT 97
--- NOTE | 2024-11-14 04:31 | EDS_ITS ---
HPI History of Present Illness Chief Complaint: Nausea/Vomiting/Diarrhea Informant: patient and EMS Narrative Narrative: Patient is a 23-year-old female with past medical history of quadriplegia who is immobile. She has a colostomy and chronic catheter. She was recently admitted to the hospital secondary to a sacral wound found to have osteomyelitis and had to be admitted for IV antibiotics and wound VAC. She was then readmitted after potential seizure activity. Patient states that this evening she had a few bouts of vomiting that was not controlled to prescribe Zofran and therefore EMS was called to bring her in for evaluation [facility] Medical History (Updated 11/14/24 @ 05:[address] Felton Garcia, DO) Acute osteomyelitis of sacrum Leukocytosis Thrombocytosis Microcytic anemia Stage IV pressure ulcer of sacral region Complication of indwelling urinary catheter Quadriplegia Purple urine bag syndrome Neurogenic bladder Urinary retention Open wound Depression Excessive bleeding Seizures Indwelling urethral catheter present Former smoker Ureteral calculus Colostomy in place Autonomic dysreflexia New onset seizure Paraplegic spinal paralysis Urinary tract infection Neck fracture Single kidney Double uterus Wounds, multiple Home Medications ?Medication ?Instructions ?Recorded ?Last Taken ?Type aspirin 81 mg tablet,delayed 81 mg PO DAILY heart health 07/17/21 10/27/22 08:00 History release baclofen 20 mg tablet 40 mg PO BID muscle spasms 07/17/21 10/27/22 History 2200 cholecalciferol (vitamin D3) 25 25 mcg PO DAILY supplement 07/17/21 10/27/22 08:00 History mcg (1,000 unit) capsule (Vitamin D3) docusate sodium 100 mg capsule 100 mg PO TID PRN stool softener 07/17/21 10/27/22 08:00 History escitalopram oxalate 20 mg tablet 20 mg PO DAILY depression 07/17/21 10/27/22 08:00 History nitroglycerin 2 % transdermal 1 inch transdermal PRN PRN 07/17/21 Unknown History ointment autonomic dysreflexia methenamine hippurate 1 gram 1 g PO Q12H UTI prevention 09/12/22 10/27/22 22:00 History tablet (Hiprex) nystatin 100,000 unit/gram topical 1 applic topical BID skin 09/12/22 Unknown History powder irritation ondansetron 4 mg disintegrating 8 mg (2 x 4 mg) PO Q8H PRN PRN 08/23/23 Unknown Rx tablet Nausea #20 tabs oxybutynin chloride 5 mg 5 mg PO DAILY overactive bladder 10/11/23 Unknown History tablet,extended release 24 hr tizanidine 4 mg tablet 4 mg PO Q12H muscle spasms 10/11/23 Unknown History naproxen 500 mg tablet 500 mg PO BID PRN pain 10/20/24 Unknown History acetic acid 0.25 % irrigation 1,000 ml irrigation DAILY wounds 10/25/24 Unknown Rx solution #6,000 mL ondansetron 4 mg disintegrating 4 mg PO Q6H PRN nausea and 11/02/24 Unknown Rx tablet vomiting #12 tabs doxycycline monohydrate 100 mg 100 mg PO BID 22 days #0 caps 11/11/24 Unknown Rx capsule piperacillin-tazobactam 3.375 gram 3.375 g IV Q8H 22 days 11/11/24 Unknown Rx intravenous solution prochlorperazine maleate 10 mg 10 mg PO TID PRN nausea and 11/14/24 Unknown Rx tablet (Compazine) vomiting #21 tabs Allergy/AdvReac Type Severity Reaction Status Date / Time vancomycin Allergy Severe Other Verified 11/14/24 00:57 Family History unable to obtain Surgical History History of tracheostomy History of urostomy History of cystoscopy History of colectomy History of urethral stent S/P cervical spinal fusion H/O thumb surgery Social History household members: family Smoking Status: Former smoker alcohol intake: never substance use type: does not use ROS ROS ED Constitutional Constitutional ED: Denies chills or fever(s) ENT ENT ED: Denies sore throat Cardiovascular Cardiovascular: Denies chest pain Respiratory/Chest Respiratory/Chest: Denies cough or dyspnea Gastrointestinal Gastrointestinal: Reports nausea and vomiting; Denies abdominal pain or diarrhea Integumentary Reports other Details: Positive chronic wound Neurologic Neurologic: Denies headache(s) Hematologic/Lymphatic Hematologic/Lymphatic: Denies easy bleeding or easy bruising EXAM Physical Exam Const Vital Signs: 11/14/24 00:52 11/14/24 02:52 11/14/24 04:00 Temperature 98.4 F Temperature Source Oral Pulse Rate 96 85 89 Respiratory Rate 18 16 18 Blood Pressure 187/106 H 148/99 H 146/93 H Blood Pressure Mean 133 115 110 Pulse Ox 99 99 97 Oxygen Delivery Method Room Air Room Air Room Air 11/14/24 05:11 Temperature 98.4 F Temperature Source Pulse Rate 90 Respiratory Rate 14 Blood Pressure 137/90 H Blood Pressure Mean 105 Pulse Ox 97 Oxygen Delivery Method Positive well nourished, well developed and obese General Appearance ED: well developed Nutritional Appearance: obese HEENT Reports moist mucous membranes HEENT Narrative: No tongue or cheek biting to suggest seizure activity No tongue or lip swelling no oral lesions no airway edema or compromise No findings in the posterior pharynx to suggest infection Eyes PERRL and EOMs intact bilaterally General Eye ED: Negative for scleral icterus Neck supple Neck Narrative: No nuchal rigidity or meningeal signs Resp normal respiratory effort and clear to auscultation bilaterally Cardio regular rate and regular rhythm GI non-distended and no masses GI Narrative: Abdomen is soft and nondistended with hyperactive bowel sounds. There is mild generalized pain with palpation. No voluntary guarding or rigidity or pulsatile mass. Colostomy is in place draining brown stool. Auscultation: hyperactive bowel sounds Palpation: soft Extremity Extremity Narrative: Chronic changes secondary to history of quadriplegia Neuro oriented x3 and CN's II-XII intact bilaterally Sensorium / Orientation: alert Psych mental status grossly normal Skin Skin Narrative: Chronic wound to the sacrum Capillary refill is less than 3 seconds Skin turgor is normal MDM MDM MDM Narrative Medical decision making narrative: Patient arrived to the ER hypertensive but otherwise with stable vitals. She reported she called EMS because she was having recurrent vomiting despite taking her Zofran. In order to rule out acute kidney injury versus electrolyte abnormality versus intestinal infection such as colitis diverticulitis ileus or obstruction I did like to perform basic laboratory studies with CT of the abdomen and pelvis. Labs revealed no clinically significant findings. There is no leukocytosis or left shift to suggest infection patient did not have COLTON or clinically significant electrolyte changes. Lipase was normal going against p ancreatitis. Liver enzymes were normal going against a biliary cause. The patient CT scan showed gallstones but no signs of pericholecystic fluid which correlate with her laboratory values. After receiving IV fluids and Compazine patient had no further bouts of vomiting. Therefore at this time she does not have recurrent seizures she does not have COLTON clinically significant electrolyte abnormalities or signs of obvious infection such as acute cholecystitis or pancreatitis. Therefore do not feel there is need for readmission and she is otherwise safe for discharge with symptomatic care History & Record Review Discussion w/independent historian: EMS personnel and Patient Additional record(s) reviewed:: Prior inpatient record Lab Data Attestation: I reviewed the patient's lab results. Labs: Laboratory Results - last 24 hr 11/14/24 01:18 WBC 7.5 RBC 4.47 Hgb 11.1 L Hct 35.6 L MCV 79.6 L MCH 24.8 L MCHC 31.2 L RDW Std Deviation 58.6 H RDW Coeff of Anurag 20.9 H Plt Count 358 MPV 9.9 Immature Gran % (Auto) 0.300 Neut % (Auto) 69.9 Lymph % (Auto) 19.8 [place] % (Auto) 4.4 Eos % (Auto) 5.2 H Baso % (Auto) 0.4 Absolute Neuts (auto) 5.3 Absolute Lymphs (auto) 1.49 Nucleated RBC % 0 Differential Comment SCANNED Platelet Estimate ADEQUATE Anisocytosis 1+ Sodium 144 Potassium 3.6 Chloride 111 H Carbon Dioxide 26.0 Anion Gap 7 BUN 18 Creatinine 0.84 Estim Creat Clear Calc 127.71 Est GFR (MDRD) Af Amer 109 Est GFR (MDRD) Non-Af 90 BUN/Creatinine Ratio 21.4 H Glucose 107 H Calcium 9.2 Magnesium 1.7 Total Bilirubin 0.30 Direct Bilirubin 0.15 AST 25 ALT 44 Alkaline Phosphatase 85 Total Protein 7.0 Albumin 2.6 L Globulin 4.4 H Lipase 22 Discharge Plan Triage Chief Complaint: Nausea/Vomiting/Diarrhea ED Provider: Felton Garcia Dx/Rx/DC Orders Clinical Impression: Nausea and vomiting, Quadriplegia, Pressure ulcer, Hypertension Instructions: ED Vomiting (Adult) Prescriptions: New prochlorperazine maleate [Compazine] 10 mg tablet 10 mg PO TID PRN (Reason: nausea and vomiting) Qty: 21 0RF No Action aspirin 81 mg Tablet,Delayed Release (Dr/Ec) 81 mg PO DAILY baclofen 20 mg Tablet 40 mg PO BID nitroglycerin 2 % Ointment 1 inch TRANSDERMAL PRN PRN (Reason: autonomic dysreflexia) cholecalciferol (vitamin D3) [Vitamin D3] 25 mcg (1,000 unit) Capsule 25 mcg PO DAILY docusate sodium 100 mg Capsule 100 mg PO TID PRN (Reason: stool softener) escitalopram oxalate 20 mg Tablet 20 mg PO DAILY methenamine hippurate [Hiprex] 1 gram tablet 1 g PO Q12H Rx Instructions: can be continued indefinitely. For UTI prevention. nystatin 100,000 unit/gram powder 1 applic topical BID tizanidine 4 mg tablet 4 mg PO Q12H Patient Comments: Take 1 tablet by mouth two times a day. oxybutynin chloride 5 mg tablet extended release 24hr 5 mg PO DAILY Patient Comments: Take 1 tablet by mouth once daily. ondansetron 4 mg tablet,disintegrating 8 mg PO Q8H PRN PRN (Reason: Nausea) Qty: 20 0RF ondansetron 4 mg tablet,disintegrating 4 mg PO Q6H PRN (Reason: nausea and vomiting) Qty: 12 0RF piperacillin-tazobactam 3.375 gram recon soln 3.375 g IV Q8H 22 Days Rx Instructions: stop date 12/03/24. Dx: sacral osteo. Weekly bmp, cbc, and esr. Fax to [phone]. Routine port care per protocol. doxycycline monohydrate 100 mg capsule 100 mg PO BID 22 Days Qty: 0 0RF naproxen 500 mg tablet 500 mg PO BID PRN (Reason: pain) acetic acid 0.25 % Solution 1,000 ml irrigation DAILY Qty: 6000 0RF Primary Care Provider: Dao Paulino Referrals: Dao Paulino MD [Primary Care Provider] - Activity Restrictions/Additional Instructions: Please stop the Zofran and begin using the Compazine for improved nausea and vomit control. Keep yourself well-hydrated and return to the ER should you have any further concerns Print Language: Azerbaijani Disposition Disposition: Home, Self Care
[2024-11-14 05:11] VITALS: BP 137/90; PULSE 90; RESP 14; TEMP 36.9; O2SAT 97
[2024-11-14 06:00] VITALS: BP 138/102; PULSE 80; RESP 14; O2SAT 95
== END 2024-11-14 07:19 | disposition home or self-care (01) ==
PROVIDERS: Emergency Provider Emergency Medicine; PCP Family Medicine; Visit Provider Emergency Medicine
DX: R11.2 Nausea with vomiting, unspecified (principal); L89.154 Pressure ulcer of sacral region, stage 4; G82.50 Quadriplegia, unspecified; Z93.3 Colostomy status; K80.20 Calculus of gallbladder without cholecystitis without obstruction; R19.7 Diarrhea, unspecified; Z87.891 Personal history of nicotine dependence; I10 Essential (primary) hypertension; E66.9 Obesity, unspecified
CPT/HCPCS: 36591; 74177; 80048; 80076; 83690; 83735; 85025; 96361; 96374; 96375; 99284; Q9967; A4216

== ENCOUNTER 2024-12-27 12:57 | Outpatient (RCR) | payer MEDICAID, SELFPAY ==
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
[2024-12-27 13:21] VITALS: BP 93/47; PULSE 91; RESP 18; TEMP 36.3
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
--- NOTE | 2024-12-28 09:35 | WC ---
PHOTO 12/27/24 [facility]UM
== END 2024-12-31 23:59 | disposition home or self-care (01) ==
LOC: WC 12:57
PROVIDERS: PCP Family Medicine; Referring Provider Nurse Practitioner Family; Visit Provider Surgery Plastic and Reconstructive Surgery
DX: L89.153 Pressure ulcer of sacral region, stage 3 (principal); S14.107S Unspecified injury at C7 level of cervical spinal cord, sequela; V49.9XXS Car occupant (driver) (passenger) injured in unspecified traffic accident, sequela; Z79.82 Long term (current) use of aspirin; Z79.899 Other long term (current) drug therapy; Z87.39 Personal history of other diseases of the musculoskeletal system and connective tissue; Z87.891 Personal history of nicotine dependence
CPT/HCPCS: 11043; 11046; 99214; G0463

== ENCOUNTER 2025-01-12 15:08 | Observation (INO) | payer MEDICAID, SELFPAY ==
[2025-01-12] VITALS (16 sets, daily range): BP systolic 58–125; BP diastolic 33–78; PULSE 80–107; RESP 14–18; TEMP 36.2–37.5; O2SAT 93–100; BMI 36.6
--- NOTE | 2025-01-12 13:46 | PRE.ANES_ITS ---
ASA Classification* ASA Classification ASA Classification: 3 Assessment & Plan Anesthesia* Anesthesia Assessment Anesthesia Assessment: Discussed sedation and/or anesthesia options, risks, benefits, and alternatives with patient/parents/legal guardian/POA. Questions invited. The patient/parents/legal guardian/POA seems to understand and agrees to proceed with anesthesia plan. Reviewed the physical assessment, medical history, allergy history and patient home medications list prior to surgery/procedure/anesthetic and documented any changes. Performed airway and anesthesia risk assessments. Anesthesia Type Anesthesia Type: MAC (GA bkup. patient Quadriplegia) Anesthesia Focused Assessment* Airway Assessment Mouth opens: >3 cm Mallampati Score: II Focused Labs Anesthesia Preop lab: CBC WBC 7.5 K/mm3 (4.4-11.0) 11/14/24 01:18 11/14/24 RBC 4.47 M/mm3 (4.2-5.4) 11/14/24 01:18 11/14/24 Hgb 11.1 g/dL (12.0-15.0) L 11/14/24 01:18 4 Hct 35.6 % (37-47) L 11/14/24 01:18 11/14/24 Plt Count 358 K/mm3 (150-450) 11/14/24 01:18 11/14/24 CHEMISTRY Potassium 3.6 mmol/L (3.5-5.1) 11/14/24 01:18 11/14/24 Sodium 144 mmol/L (136-145) 11/14/24 01:18 11/14/24 Magnesium 1.7 mg/dL (1.6-2.6) 11/14/24 01:18 11/14/24 Phosphorus 3.3 mg/dL (2.5-4.9) 10/21/24 06:25 10/21/24 BUN 18 mg/dL (7-18) 11/14/24 01:18 11/14/24 Creatinine 0.84 mg/dL (0.55-1.02) 11/14/24 01:18 11/14/24 Glucose 107 mg/dL (74-106) H 11/14/24 01:18 11/14/24 POC Glucose 121 mg/dL (70-110) H 11/06/21 04:48 11/06/21 TSH 1.86 uIU/mL (0.358-3.74) 11/07/21 07:10 COAG PT 15.1 SECONDS (11.7-14.9) H 10/21/24 06:25 10/02 12/24 Urine Test Negative Negative 10/23/24 01:25 10/23/24 Pre-Assessment Diagnosis/Proposed Procedure Planned Operative Procedure(s): EXCISION SACRAL WOUND WITH SPLIT THICKNESS SKIN GRAFT WITH WOUND VAC APPLICATION Anesthesia History 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 When Was Last Pacemaker Check QUESTION #4 FULL TEXT: You/Your Family Experience fever (hyperthermia) with Anesthesia Last Oral Intake Last Oral intake: Last Oral Intake NPO since Meds taken in AM with sips of water? Meds patient instructed to take am of surgery PONV PONV - guinea pig breeder: PONV - guinea pig breeder Female Yes 01/11/25 14:51 HX of Motion Sickness No 01/11/25 14:51 HX of N/V After Surgery No 01/11/25 14:51 Non-Smoker Yes 01/11/25 14:51 Duration of Surgery greater Yes 01/11/25 14:51 than 60 minutes Number of Risk Factors 3 01/11/25 14:51 PONV Score Moderate Risk 01/11/25 14:51 Height & Weight Height & Weight: Anesthesia: Height & Weight Height 5 ft 5 in 11/14/24 00:52 Respiratory Assessment Respiratory Assessment - guinea pig breeder: Respiratory Tract Infection Hx - guinea pig breeder Hx Respiratory Tract Infection No 01/11/25 14:51 STOP Sleep Apnea STOP Sleep Apnea - guinea pig breeder: STOP Sleep Apnea - guinea pig breeder Hx Hypertension No 01/11/25 14:51 Hx Sleep Apnea No 01/11/25 14:51 CPAP No 01/11/25 14:51 BIPAP No 01/11/25 14:51 Do you snore loudly (louder Yes 01/11/25 14:51 than talking or can be heard Do you often feel tired/ Yes 01/11/25 14:51 fatigued/ sleepy during daytime? Has anyone observed you stop No 01/11/25 14:51 breathing during sleep? STOP Results Positive 01/11/25 14:51 QUESTION #5 FULL TEXT : Do you snore loudly (louder than talking or can be heard through closed doors)? 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 Specify any problems Hx of Preganancy in last 3 No 01/11/25 14:51 Months Nurse Filling Out Transfusion DSCHRIBER 01/11/25 14:51 & Questions: Date: 01/11/25 01/11/25 14:51 Time: 14:53 01/11/25 14:51 Patient unable to answer at this time (ie. confused, unrespo /Reproduction History /Reproductive History - guinea pig breeder: /Reproductive Hx- guinea pig breeder Hx Now Gestational Age (in weeks): EDC: Hx Hx Para Hx Section SAB No 01/11/25 14:51 Active Medications Active Medications: Current Medications Generic Name Dose Route Start Last Admin Trade Name Freq PRN Reason Stop Dose Admin Cefazolin Sodium 2 gm/ N/A 20 mls @ 400 mls/hr 01/12/25 15:45 IV 01/12/25 15:47 PREOP ONE [facility] Medical History Anxiety Uses wheelchair Anemia Leukocytosis Thrombocytosis Microcytic anemia Stage IV pressure ulcer of sacral region Complication of indwelling urinary catheter Quadriplegia Purple urine bag syndrome Acute osteomyelitis of sacrum Neurogenic bladder Urinary retention Depression Seizures Indwelling urethral catheter present Former smoker Ureteral calculus Autonomic dysreflexia Paraplegic spinal paralysis Urinary tract infection Neck fracture Single kidney Double uterus Home Medications ?Medication ?Instructions ?Recorded ?Last Taken ?Type aspirin 81 mg tablet,delayed 81 mg PO DAILY heart heal th 07/17/21 10/27/22 08:00 History release baclofen 20 mg tablet 40 mg PO BID muscle spasms 0 07/17/21 10/27/22 History 2200 cholecalciferol (vitamin D3) 25 25 mcg PO DAILY supple ment 07/17/21 10/27/22 08:00 History mcg (1,000 unit) capsule (Vitamin D3) docusate sodium 100 mg capsule 100 mg PO TID PRN stool softener 07/17/21 10/27/22 08:00 History escitalopram oxalate 20 mg tablet 20 mg PO DAILY depre ssion 07/17/21 10/27/22 08:00 History nitroglycerin 2 % transdermal 1 inch transdermal PRN P RN 07/17/21 Unknown History ointment autonomic dysreflexia methenamine hippurate 1 gram 1 g PO Q12H UTI preventio n 09/12/22 10/27/22 22:00 History tablet (Hiprex) nystatin 100,000 unit/gram topical 1 applic topical BI D skin 09/12/22 Unknown History powder irritation ondansetron 4 mg disintegrating 8 mg (2 x 4 mg) PO Q8H PRN PRN 08/23/23 Unknown Rx tablet Nausea #20 tabs oxybutynin chloride 5 mg 5 mg PO DAILY overactive roshan dder 10/11/23 Unknown History tablet,extended release 24 hr tizanidine 4 mg tablet 4 mg PO Q12H muscle spasms 1 12/11/22 Unknown History naproxen 500 mg tablet 500 mg PO BID PRN pain 10/20 Unknown History acetic acid 0.25 % irrigation 1,000 ml irrigation KANA Y wounds 10/25/24 Unknown Rx solution #6,000 mL Allergy/AdvReac Type Severity Reaction Status Date / Time vancomycin Allergy Severe Other Verified 01/11/25 14:46 Surgical History History of tracheostomy History of urostomy History of cystoscopy History of colectomy History of urethral stent S/P cervical spinal fusion H/O thumb surgery Social History household members: family Smoking Status: Former smoker alcohol intake: never substance use type: does not use Review of Systems (Anesthesia) ROS Narrative System reviewed and no additional complaints, except as documented.
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
--- NOTE | 2025-01-12 14:34 | PCM.OPRPT ---
Operative Report (Standard) Operative Information Date of Procedure: 01/12/25 RN Documented Start/Stop Times: Operation Date: 01/12/25 15:30 Case Time Into Pre-Op 01/12/25 14:06
--- NOTE | 2025-01-12 14:36 | PCM.POST.ANE ---
Anesthesia: Postop Eval I Current Vital Signs Temperature: 97.7 F Pulse Rate: 80 Blood Pressure: 95/77 Respiratory Rate: 18 Pulse Ox: 100 Assessment Airway patent: Yes Spontaneous unlabored respirations: Yes nausea: No Vomiting: No Anesthesia Complication: No Fluid Hydration Crystalloid volume administer (ml): 50 Total IV fluid infused: 50 Progress Note Anesthesia document: Postop Eval 1 completed: Yes
[2025-01-12] MEDS: Epinephrine (1 mg/ml) 1 MG/ML VIAL (15:50)
[2025-01-12] MEDS: Cefazolin 2 GM in Syringe IV (15:50)
[2025-01-12] MEDS: Mineral Oil, Light Sterile 10 ML Vial MC (15:50)
[2025-01-12] MEDS: Bupiv/Epi 0.25% 30 ML Vial (16:15)
--- NOTE | 2025-01-12 16:35 | OP.PCM_ITS ---
Operative Report (Standard) Operative Information Date of Procedure: 01/12/25 Pre-Operative Diagnosis: Sacral wound, stage 3 Post-Operative Diagnosis: Same Surgery/Procedure Performed: 1) Excision of sacral wound in preparation for skin grafting (8 x 4 cm), CPT: 82936 2) Split-thickness skin graft from left lateral thigh to the sacral wound (8 x 4 cm), CPT 57207 semiconductor wafers etch operator: Yes Convalescent Sitter: Maxine Murillo Tasks completed by gynecological assistant: Closing and Retracting Type of Anesthesia: General/Supplemental (20 cc of 0.25% Marcaine 1:200,000 with epinephrine in addition to the general anesthesia ) RN Documented Start/Stop Times: Operation Date: 01/12/25 15:30 Case Time Into Pre-Op 01/12/25 14:06 Out of Pre-Op 01/12/25 15:00 Anesthesia Start 01/12/25 15:06 Into Room 01/12/25 15:06 Procedure Start 01/12/25 15:51 Procedure End 01/12/25 16:20 Anesthesia End 01/12/25 16:31 Out of Room 01/12/25 16:31 Procedure Start Time: 15:51 Procedure Stop Time: 16:20 Select all DRAINS/GRAFTS/IMPLANTS that apply: None Estimated Blood Loss: 20 cc Specimen collected: No Description of surgery: Indications: Patient is a delightful 24-year-old female who underwent debridement, wound cultures, treatment for osteomyelitis for 6 weeks with antibiotics per infectious disease, and wound VAC treatment. Her wound has recently become very healthy with adequate granulation tissue and coverage of the bone. There are no signs of residual infection. She has been cleared by infectious disease for reconstruction. She presents today for skin graft. She understands the risks, benefits (faster wound healing), and alternatives to skin grafting, and would like to proceed. Procedure details: Patient was correctly identified in preoperative holding and taken back to the operating room where she was administered general anesthesia. She was placed in the prone position and she was prepped and draped in sterile fashion. The wound was excised with a sharp curette for total sharp excision of 8 x 4 cm down to healthy bleeding granulation tissue. The wound was irrigated with copious amounts normal saline. Hemostasis was obtained with epinephrine soaked Telfa. Using a Jake dermatome, the left lateral thigh was used for donor site for a 10/1000's and split thickness skin graft that was meshed at 1.5-1. It was trimmed to fit and measured 8 x 4 cm. It was sutured into place over the sacral wound with 3-0 Chromic Gut suture. Epinephrine soaked Telfa was applied to the lateral thigh, as was 20 cc of the above-noted Marcaine solution. Mepilex Ag was applied to the thigh with Ioban. A wound VAC with Adaptic was applied over the skin graft and was holding suction at the end of the case. The patient was transferred to the PACU in stable condition. Of note, there were issues with the blood pressure at the beginning of the case on induction (low blood pressure requiring vasopressor and fluids), but she responded to interventions immediately and had a normal blood pressure thereafter throughout the case. When transferred to the PACU, there were inconsistent and unreliable blood pressures per anesthesia, but she was alert and oriented x 4. Once the cuff was adjusted, the PACU team and anesthesia were consistently getting 100 systolic blood pressures on the forearm per my discussion with the anesthesiologist. Postoperative plan: Plan to admit overnight for monitoring. If she is doing well in the morning we will arrange ambulance transport to home with follow-up with the wound care center and 1 week. Surgical Findings: Healthy wound bed ready for grafting Complications Complications: No Admit VTE Documentation VTE Present on Admission: No VTE Mechan Device Prophylaxis: SCD's VTE Pharm Prophylaxis ordered?: Yes
--- NOTE | 2025-01-12 16:40 | PCM.POST.ANE ---
Anesthesia: Postop Eval I Current Vital Signs Temperature: 97.7 F Pulse Rate: 106 Blood Pressure: 92/55 Respiratory Rate: 16 Pulse Ox: 94 Oxygen Delivery Method: Room Air Assessment Airway patent: Yes Spontaneous unlabored respirations: Yes Mental status: Awake and Calm nausea: Yes Vomiting: No Anesthesia Complication: No Fluid Hydration Crystalloid volume administer (ml): 1,900 Total IV fluid infused: 1,900 Progress Note Post-operative progress note: hypotension after induction in OR Anesthesia document: Postop Eval 1 completed: Yes
--- NOTE | 2025-01-12 16:59 | EKG12_ITS ---
Test Reason : POST OP Blood Pressure : */* mmHG Vent. Rate : 98 BPM Atrial Rate : 98 BPM P-R Int : 116 ms QRS Dur : 98 ms QT Int : 378 ms P-R-T Axes : 34 57 56 degrees QTcB Int : 482 ms Normal sinus rhythm Prolonged QT Abnormal ECG When compared with ECG of 08-Nov-2024 22:23, T wave amplitude has decreased in Inferior leads Confirmed by BROOK AYALA, SRAVANI ([id number]), publications editor BAMBI KHALIL ([id number]) on 01/17/2025 8:27:16 AM Referred By: Joseph Gaona Confirmed By: SRAVANI DOE MD
--- NOTE | 2025-01-12 17:32 | PCM.POSTANE2 ---
Anesthesia Postop Eval I Sum Postop Eval Completion status Anesthesia document: Postop Eval 1 completed: Yes Anesthesia Postop Eval I Summary Anesthesia Postop Eval I Summary: Anesthesia Postop Eval I: Assessment Summary Airway patent Yes 01/12/25 16:41 Spontaneous unlabored Yes 01/12/25 16:41 respirations Mental status Awake,Calm 01/12/25 16:41 nausea Yes 01/12/25 16:41 Vomiting No 01/12/25 16:41 Anesthesia Postop Eval I: Fluid Summary Crystalloid volume administer 1,900 01/12/25 16:41 (ml) Colloids volume administered ( ml) Blood Product volume administered (ml) Total IV fluid infused 1,900 01/12/25 16:41 Anesthesia Postop Eval I: Summary Notes Anesthesia Complication No 01/12/25 16:41 Anesthesia Complication Comment: Post-operative progress note hypotension after 01/12/25 16:41 induction in OR Anesthesia: Postop Eval II Evaluation Mental status: Awake and Calm Pain Level: 2 nausea: No Vomiting: No Complications Anesthesia Complication: No
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
[2025-01-12] MEDS: oxyCODONE 5 MG Tablet PO (22:35)
[2025-01-12] MEDS: Acetaminophen 325 MG Tablet 650 MG PO (22:36)
[2025-01-12] MEDS: Baclofen 10 MG Tablet 40 MG PO (22:37)
[2025-01-12] MEDS: tiZANidine HCl 2 MG Tablet 4 MG PO (22:38)
[2025-01-12] MEDS: Methenamine Hippurate 1 GM Tablet PO (22:38)
[2025-01-13 00:21] VITALS: PULSE 102; RESP 16; O2SAT 96
[2025-01-13 02:21] VITALS: BP 113/63; PULSE 110; RESP 16; TEMP 37.6; O2SAT 95
[2025-01-13] MEDS: Acetaminophen 325 MG Tablet 650 MG PO (05:19)
--- NOTE | 2025-01-13 09:25 | PCM.PROGNOTE ---
Subjective Subjective Post op day 1 Pain controlled. No signs of bleeding. Arranging ambulance transfer home today with f/u in the wound care center. Objective Data Objective Data Vital Signs: Vital Signs Temp Pulse Resp BP Pulse Ox O2 Del Method 99.6 F H 110 H 16 113/63 95 Room Air 01/13/25 02:21 01/13/25 02:21 01/13/25 02:21 01/13/25 02:21 01/13/25 02:21 01/13/25 02:21 Oxygen Delivery Method Room Air Weight: 220 lb Body Mass Index (BMI) 36.6 Intake & Output: Intake and Output for Last 24 Hours 01/11/25 01/12/25 01/13/25 23:59 23:59 23:59 Intake Total 300 / 300 Output Total 1100 / 1100 Balance 20 / -580 -800 / -800 Physical Exam Narrative VAC holding suction over sacral wound, no pressure points from tubing No blood/bleeding. Thigh dressing C/D/I Const alert, oriented x3, no apparent distress and well nourished; Negative for average body habitus or healthy appearing Constitutional Narrative: Obese, young, white female, lying in bed, appears comfortable, non toxic HEENT head/scalp atraumatic and moist oral mucous membranes HEENT Narrative: appears slightly flushed Head and Scalp: normocephalic Resp normal respiratory effort Auscultation: Negative for rales, rhonchi or wheezes GI normal to inspection, nondistended, normoactive bowel sounds, soft to palpation and non-tender Extremity no clubbing, cyanosis or edema Extremity Narrative: 2+ pedal and radial pulses SCDS on and activated No lower extremity swelling Neuro oriented x3, moves all extremities and no focal motor deficits Speech: speech normal Psych affect normal Psych Narrative: appears well Assessment & Plan Assessment/Plan (1) Pressure ulcer: QUALIFIERS: Pressure injury location: sacral region Pressure injury stage: stage 3 Qualified Code(s): L89.153 - Pressure ulcer of sacral region, stage 3 PLAN: Expected course thus far Plan for DC today with F/u in the wound care center on 17 JAN 2025 Charges/Coding Procedures Integumentary 111xxx-113xx: 86064 Global Visit
[2025-01-13 10:17] VITALS: BP 104/52; PULSE 99; RESP 16; TEMP 37.2; O2SAT 96
[2025-01-13] MEDS: Methenamine Hippurate 1 GM Tablet PO (10:33)
[2025-01-13] MEDS: Tolterodine Tartrate 2 MG CAP.SA PO (10:33)
[2025-01-13] MEDS: Baclofen 10 MG Tablet 40 MG PO (10:34)
[2025-01-13] MEDS: Enoxaparin 40 MG/0.4 ML Syringe SC (10:34)
[2025-01-13] MEDS: tiZANidine HCl 2 MG Tablet 4 MG PO (10:34)
[2025-01-13] MEDS: Escitalopram Oxalate 20 MG Tablet PO (10:37)
[2025-01-13 10:56] VITALS: O2SAT 96
--- NOTE | 2025-01-13 11:40 | CASEMGMT ---
Addendum entered by Alejandra Olivas 01/13/25 13:56: Pt states that she does have a [facility] case technician. SW encouraged pt to work with case technician for any additional cot transportation needs for ease of arrangement. BAILEY Dorantes Original Note: Social Work- SW received notice from pt surgeon that pt will need cot transportation and a follow up appointment on 01/17. SW called wound center to schedule appointment on 01/17 at 3:45PM. SW spoke with pt to discuss preferences of scheduling transport. Pt shared that she would like SW to set up transport, as she has never set up transport on her own previously. Pt reports that she has no preferences of transportation providers. SW called [facility] and was informed that they do not do any private residence transports any longer. [facility] also does not provide private residence transport. SW called [id number] ([phone]) and scheduled transport for her appointment on 01/17 at 3:45. Confirmation#: [id number]. cloth brushing and sueding supervisor time 2:45-3:15; [id number] will call and text pt with transport details once a provider is secured. Pt updated and provided written details listed above. INTEGRITY DIRECTOR for surgeon updated with details as well. Pt reports that mom will be home at discharge today. SW scheduled pt cot transport home with [facility] for machine operator hop picker time of 3:00 PM today. patient care secretary and bedside nurse updated. Pt updated and reports that she will update mom. Pt reports no other needs at this time. BAILEY Dorantes
--- NOTE | 2025-01-13 11:47 | CASEMGMT ---
Addendum entered by Sheela Chavis 01/13/25 11:56: Pt had wound vac @ home prior to this admission and SN from [facility] comes MWF for wound vac care/dsg changes. She state the SN also does her colostomy and SP cath care. Original Note: RN CM crossing gateman CM to room to meet with pt for initial transition planning/care coordination assessment. CONRAD TILLMAN introduced self and role at [facility], pt voices understanding and consents to assessment. Pt is A&O and answers all questions appropriately at this time. Pt lying in bed in no distress. Care providers, pharmacy, and demographics verified/updated. PCP: Dr Paulino Specialists: Dr Gaona @ Wound Center, plastic surgeon. Spinal Cord Doctor at [facility] Preferred Pharmacy: [facility] @ discharge. Otherwise, goes to [facility] Insurance: [employer] Prescription Benefit: yes LNOK: Sapna, Mom; Dillan, Father. Living Arrangements: Pt lives with mom in a 1 level apartment with no steps to enter. ADLs: Mom provides assistance with ADLs and IADLs. Transportation: Pt insurance provides transportation. DME: Pt states she has all ostomy and catheter supplies needed, wheelchair, karo, hospital bed, and pressure-relieving mattress. She states home is accessible and denies further DME needs. HHC/SNF: Pt previously in SNF, does not recall where. Pt active w/[facility] SN services, would like to resume upon DC and declines wanting list of other C options. ISAAC order placed. [facility] DC anesthetic assistant to send ISAAC to [facility] via [facility]. Pt states no concerns with going home at time of dc. Pt states no further concerns/needs. CM to follow. Advised pt to ask CM if any further question/concerns/needs arise, voices understanding. Plan: Home with [facility] for [facility]/wound vac care/dsg changes. SW working on transportation @ DC. Pt is aware she is to remain bedrest/not to use W/C while graft heels. Amrit VILLAR RN, CM
--- NOTE | 2025-01-13 11:50 | WOUNDNOTE ---
Per Dr Gaona's request, bridged the trac pad from the sacral area to the left lower abdomen. did not remove the VAC dressing from the sacrum over the skin graft. just removed the trac pad and placed drape to the left lower abdomen. Used a piece of foam to bridge to left lower abdomen and placed drape to seal. added extra drape at the cleft region as well as a small bead of stoma paste to maintain good seal at 125mmHg low continuous suction. Pt tolerated well. will switch over to patient's home VAC prior to discharge home. wound VAC will remain in place until follow up next week with Dr Gaona.
--- NOTE | 2025-01-13 12:33 | CASEMGMT ---
HH resumption referral sent to [facility] with HH and wound vac order. Slime Fleming DC Planning Asst.
--- NOTE | 2025-01-13 12:35 | DCINST_ITS ---
Discharge Instructions Diet Discharge Diet: No restrictions DC O2, CPAP, BIPAP needs Home O2 Discharge instructions: No Dressing / Incision Additional Activity Instructions:: Stay off of surgical site, no laying on back Dressing / Incision Call your doctor if your incision/area has: Continuous Slow Oozing, Sudden Increased Bleeding, Increased Pain/ Swelling, Increased Redness and Foul Smelling Discharge Call your doctor if you observe: Fever of 101 or Higher, Inability to have a bowel movement, Shortness of breath, Chest pain and Uncontrolled pain Suture Line Care: Avoid Pulling/Pushing and Avoid Pinching/Bending Change Dressing in: leave in place till F/U Drain: Suction Additional Dressing/Incision Instructions:: Wound VAC at 125 mmHg to be left in place until follow up Follow Up Care Please Follow Up With: Joseph Gaona MD When: Friday01/17/25 at the wound healing center when transportation is scheduled between 2:45-3:15 Test Results: Test results from this visit will be discussed in further detail at your follow- up appointment, if applicable. Discharge Plan Admission Admit Date/Time: 01/12/25 15:08 Attending Provider: Joseph Gaona Primary Care Provider: Dao Paulino Consulting Providers: Lele Alcantara Discharge Orders/Prescriptions Prescriptions: New oxycodone 5 mg tablet 5 mg PO Q6H PRN (Reason: pain (scale score 7-10)) 7 Days Qty: 20 0RF Continued aspirin 81 mg Tablet,Delayed Release (Dr/Ec) 81 mg PO DAILY baclofen 20 mg Tablet 40 mg PO BID nitroglycerin 2 % Ointment 1 inch TRANSDERMAL PRN PRN (Reason: autonomic dysreflexia) cholecalciferol (vitamin D3) [Vitamin D3] 25 mcg (1,000 unit) Capsule 25 mcg PO DAILY docusate sodium 100 mg Capsule 100 mg PO TID PRN (Reason: stool softener) escitalopram oxalate 20 mg Tablet 20 mg PO DAILY methenamine hippurate [Hiprex] 1 gram tablet 1 g PO Q12H Rx Instructions: can be continued indefinitely. For UTI prevention. nystatin 100,000 unit/gram powder 1 applic topical BID tizanidine 4 mg tablet 4 mg PO Q12H Patient Comments: Take 1 tablet by mouth two times a day. oxybutynin chloride 5 mg tablet extended release 24hr 5 mg PO DAILY Patient Comments: Take 1 tablet by mouth once daily. ondansetron 4 mg tablet,disintegrating 8 mg PO Q8H PRN PRN (Reason: Nausea) Qty: 20 0RF naproxen 500 mg tablet 500 mg PO BID PRN (Reason: pain) acetic acid 0.25 % Solution 1,000 ml irrigation DAILY Qty: 6000 0RF Referrals / Follow Up: Dao Paulino MD [Primary Care Provider] - Disposition Disposition (needs filled in before D/C Order can be placed): Home, Self Care
--- NOTE | 2025-01-13 12:52 | CASEMGMT ---
Discharge instructions sent to [facility]. Slime Fleming DC Planning Asst.
[2025-01-13 14:29] VITALS: BP 93/54; PULSE 92; RESP 16; TEMP 36.8; O2SAT 95
== END 2025-01-13 15:10 | disposition home health service (06) ==
PROVIDERS: Admitting Provider Surgery Plastic and Reconstructive Surgery; PCP Family Medicine; Referring Provider Surgery Plastic and Reconstructive Surgery; Visit Provider Surgery Plastic and Reconstructive Surgery
PROC: (CPT 15100; principal; 2025-01-12 15:15)
DX: L89.153 Pressure ulcer of sacral region, stage 3 (principal); G82.50 Quadriplegia, unspecified; D50.9 Iron deficiency anemia, unspecified; Z68.36 Body mass index [BMI] 36.0-36.9, adult; I95.81 Postprocedural hypotension; Z87.891 Personal history of nicotine dependence; N31.9 Neuromuscular dysfunction of bladder, unspecified; E66.9 Obesity, unspecified; Z79.899 Other long term (current) drug therapy; Z79.82 Long term (current) use of aspirin; G90.4 Autonomic dysreflexia
CPT/HCPCS: 15100; 15002; 00300; J0612; 93005; 96372; 97802; 99221; 99406; G0378; J2405

== ENCOUNTER 2025-01-16 18:18 | Emergency (ER) | payer MEDICAID, SELFPAY ==
[2025-01-16 18:18] VITALS: BP 112/51; PULSE 114; RESP 18; TEMP 36.9; BMI 38.7
[2025-01-16 18:25] VITALS: O2SAT 99
[2025-01-16 18:29] VITALS: BP 112/51; PULSE 114; RESP 18; TEMP 36.9; O2SAT 99
--- NOTE | 2025-01-16 19:07 | EDS_ITS ---
HPI History of Present Illness Chief Complaint: Dizziness Informant: patient Onset/Context/Timing Onset: Today Context: Gradual Onset Timing: Continuous Quality: Spinning Location: Generalized Worsened by: Nothing Relieved by: Nothing Narrative Narrative: Patient presents with dizziness that has been constant for the past 4 days. Patient states she felt dizzy after her recent skin graft surgery. Patient describes her dizziness as a spinning sensation. Patient states it is generalized. Patient states she has been having low-grade fevers of 99. Patient admits to some nausea but denies any vomiting. Patient admits to a cough but is unable to produce any sputum. Patient states nothing makes her dizziness better and nothing makes it worse. [facility] Medical History Anxiety Uses wheelchair Anemia Leukocytosis Thrombocytosis Microcytic anemia Stage IV pressure ulcer of sacral region Complication of indwelling urinary catheter Quadriplegia Purple urine bag syndrome Acute osteomyelitis of sacrum Neurogenic bladder Urinary retention Depression Seizures Indwelling urethral catheter present Former smoker Ureteral calculus Autonomic dysreflexia Paraplegic spinal paralysis Urinary tract infection Neck fracture Single kidney Double uterus Home Medications ?Medication ?Instructions ?Recorded ?Last Taken ?Type aspirin 81 mg tablet,delayed 81 mg PO DAILY heart heal th 07/17/21 01/11/25 History release baclofen 20 mg tablet 40 mg PO BID muscle spasms 0 07/17/21 01/12/25 History cholecalciferol (vitamin D3) 25 25 mcg PO DAILY supple ment 07/17/21 01/11/25 History mcg (1,000 unit) capsule (Vitamin D3) docusate sodium 100 mg capsule 100 mg PO TID PRN stool softener 07/17/21 10/27/22 08:00 History escitalopram oxalate 20 mg tablet 20 mg PO DAILY depre ssion 07/17/21 01/12/25 History nitroglycerin 2 % transdermal 1 inch transdermal PRN P RN 07/17/21 Unknown History ointment autonomic dysreflexia methenamine hippurate 1 gram 1 g PO Q12H UTI preventio n 09/12/22 01/11/25 History tablet (Hiprex) nystatin 100,000 unit/gram topical 1 applic topical BI D skin 09/12/22 01/11/25 History powder irritation ondansetron 4 mg disintegrating 8 mg (2 x 4 mg) PO Q8H PRN PRN 08/23/23 Unknown Rx tablet Nausea #20 tabs oxybutynin chloride 5 mg 5 mg PO DAILY overactive roshan dder 10/11/23 Unknown History tablet,extended release 24 hr tizanidine 4 mg tablet 4 mg PO Q12H muscle spasms 1 12/11/22 01/12/25 History naproxen 500 mg tablet 500 mg PO BID PRN pain 10/20 Unknown History acetic acid 0.25 % irrigation 1,000 ml irrigation KANA Y wounds 10/25/24 Unknown Rx solution #6,000 mL oxycodone 5 mg tablet 5 mg PO Q6H PRN pain (scale score 01/13/25 Unknown Rx 7-10) 7 days #20 tabs nitrofurantoin 100 mg PO Q12 #14 CAPSULES 0 01/16/25 Unknown Rx monohydrate/macrocrystals 100 mg capsule Allergy/AdvReac Type Severity Reaction Status Date / Time vancomycin Allergy Severe Other Verified 01/16/25 18:19 Surgical History History of tracheostomy History of urostomy History of cystoscopy History of colectomy History of urethral stent S/P cervical spinal fusion H/O thumb surgery Social History household members: family Smoking Status: Former smoker alcohol intake: never substance use type: does not use ROS ROS ED Constitutional Constitutional ED: Reports fever(s) and sweats; Denies chills Eyes Eyes: Denies blurry vision or change in vision ENT ENT ED: Denies rhinorrhea or sore throat Cardiovascular Cardiovascular: Denies chest pain or palpitations Respiratory/Chest Respiratory/Chest: Reports cough; Denies dyspnea Gastrointestinal Gastrointestinal: Reports nausea; Denies vomiting Genitourinary Genitourinary ED: Denies dysuria or hematuria Musculoskeletal Musculoskeletal: Reports neck pain; Denies back pain Integumentary Denies abscess or rash Neurologic Neurologic: Denies headache(s) or weakness Allergic/Immunologic Allergic/Immunologic ED: Denies mouth swelling or urticaria EXAM Physical Exam Const Vital Signs: 01/16/25 18:18 01/16/25 18:25 01/16/25 18:29 Temperature 98.5 F 98.5 F Temperature Source Oral Temporal Pulse Rate 114 H 114 H Respiratory Rate 18 18 Blood Pressure 112/51 L 112/51 L Blood Pressure Mean 71 71 Pulse Ox 99 99 Oxygen Delivery Method Room Air Room Air 01/16/25 21:16 01/16/25 21:16 Temperature 99.5 F H 99.5 F H Temperature Source Oral Oral Pulse Rate 107 H 110 H Respiratory Rate 18 18 Blood Pressure 110/51 L 100/51 L Blood Pressure Mean 70 67 Pulse Ox 98 97 Oxygen Delivery Method Room Air Room Air Positive well nourished and well developed Constitutional Narrative: BMI is 38.7 General Appearance ED: well developed and NAD HEENT Reports moist mucous membranes Neck supple and no JVD Resp normal respiratory effort and clear to auscultation bilaterally Cardio regular rhythm Rate: tachycardic GI non-distended Palpation: soft and tender suprapubic; Negative for guarding or rebound tenderness present Neuro oriented x3, CN's II-XII intact bilaterally and no sensory deficits noted Psych mental status grossly normal Skin Skin Narrative: Skin is warm and dry. There is an occlusive dressing over the skin graft site. There is no surrounding erythema. MDM MDM MDM Narrative Medical decision making narrative: Differential diagnosis includes anemia, electrolyte abnormality, wound infection, urinary tract infection, pneumonia, sepsis, and dehydration. CBC will be obtained to assess for leukocytosis and anemia. Basic metabolic profile will be obtained to assess for electrolyte abnormality and renal function. Urinalysis will be obtained to assess for urinary tract infection and hematuria. Serum lactate will be obtained to assess for sepsis. PT with INR and PTT will be obtained to assess for coagulopathy. COVID-19, influenza, and RSV PCR will be obtained to assess for viral illness. Chest x-ray will be obtained to assess for pneumonia. Lab Data Attestation: I reviewed the patient's lab results. Lab results narrative: CBC was reviewed. There is a mild leukocytosis of 13.3. Hemoglobin was 9.8 and hematocrit was 30.9. Basic metabolic profile was reviewed and was essentially within normal limits. PT with INR and PTT were reviewed and were within normal limits. Urinalysis was reviewed. Leukocyte esterase was 500 with positive nitrates. There are greater than 100 white blood cells and 2+ bacteria. COVID- 19 PCR was reviewed and was negative. Influenza PCR was reviewed and was negative for influenza A and influenza B. RSV PCR was reviewed and was negative. Labs: Laboratory Results - last 24 hr 01/16/25 01/16/25 19:16 19:20 WBC 13.3 H RBC 3.84 L Hgb 9.8 L Hct 30.9 L MCV 80.5 L MCH 25.5 L MCHC 31.7 L RDW Std Deviation 49.2 H RDW Coeff of Anurag 16.7 H Plt Count 436 MPV 9.0 Immature Gran % (Auto) 0.400 Neut % (Auto) 76.0 H Lymph % (Auto) 14.7 L [place] % (Auto) 7.1 Eos % (Auto) 1.4 Baso % (Auto) 0.4 Absolute Neuts (auto) 10.1 H Absolute Lymphs (auto) 1.95 Nucleated RBC % 0 PT 14.3 INR 1.1 APTT 28.3 Sodium 136 Potassium 3.9 Chloride 103 Carbon Dioxide 25.0 Anion Gap 8 BUN 15 Creatinine 0.79 Estim Creat Clear Calc 134.79 Est GFR (MDRD) Af Amer 116 Est GFR (MDRD) Non-Af 96 BUN/Creatinine Ratio 18.9 Glucose 108 H Lactic Acid 0.9 Calcium 9.2 Urine Color Yellow Urine Clarity Cloudy Urine pH 6.0 Ur Specific [place] 1.020 Urine Protein 100 H Urine Glucose (UA) Normal Urine Ketones 5 H Urine Occult Blood 250 H Urine Nitrite Positive H Urine Bilirubin Negative Urine Urobilinogen 4 H Ur Leukocyte Esterase 500 H Urine RBC 10-25 SEEN Urine WBC >100 SEEN Ur Squamous Epith Cells 0-5 SEEN Amorphous Sediment 4+ URATE Urine Bacteria 2+ Urine Mucus 0 SEEN Radiography Chest X-Ray - ED: 1 View, Read by ED Physician, Read by Radiologist and No Acute Disease Diagnostic Testing: Clinical Impression(s) from Imaging Studies Chest X-Ray 01/16/25 19:40 IMPRESSION: 1. Limited exam due to patient positioning. 2. Hazy opacity at the left lung is likely due to superimposed soft tissues. 3. No acute cardiopulmonary process. Reading Location: [facility] Portable chest x-ray was obtained. There is 1 view. On my independent interpretation, there is a hazy opacity at the left lung likely due to superimposed soft tissues. There is no acute cardiopulmonary process noted. Radiologist also interpreted the x-ray and agrees. Treatment and Re-Evaluation :: Patient was given IV fluids, and meclizine. Patient was advised of her findings. Patient was given a dose of cefepime for urinary tract infection. Patient was given a prescription for Macrobid. Patient was instructed to follow-up with her primary care physician in 5 to 7 days. Patient was instructed to return if worse in any way. Patient understood and was agreeable with the plan. All questions were answered. Discharge Plan Triage Chief Complaint: Dizziness ED Provider: Lele Aquino Dx/Rx/DC Orders Clinical Impression: UTI (urinary tract infection), Pressure ulcer Instructions: ED Cystitis Female Adult Prescriptions: New nitrofurantoin monohyd/m-cryst 100 mg capsule 100 mg PO Q12 Qty: 14 0RF No Action aspirin 81 mg Tablet,Delayed Release (Dr/Ec) 81 mg PO DAILY baclofen 20 mg Tablet 40 mg PO BID nitroglycerin 2 % Ointment 1 inch TRANSDERMAL PRN PRN (Reason: autonomic dysreflexia) cholecalciferol (vitamin D3) [Vitamin D3] 25 mcg (1,000 unit) Capsule 25 mcg PO DAILY docusate sodium 100 mg Capsule 100 mg PO TID PRN (Reason: stool softener) escitalopram oxalate 20 mg Tablet 20 mg PO DAILY methenamine hippurate [Hiprex] 1 gram tablet 1 g PO Q12H Rx Instructions: can be continued indefinitely. For UTI prevention. nystatin 100,000 unit/gram powder 1 applic topical BID tizanidine 4 mg tablet 4 mg PO Q12H Patient Comments: Take 1 tablet by mouth two times a day. oxybutynin chloride 5 mg tablet extended release 24hr 5 mg PO DAILY Patient Comments: Take 1 tablet by mouth once daily. ondansetron 4 mg tablet,disintegrating 8 mg PO Q8H PRN PRN (Reason: Nausea) Qty: 20 0RF naproxen 500 mg tablet 500 mg PO BID PRN (Reason: pain) acetic acid 0.25 % Solution 1,000 ml irrigation DAILY Qty: 6000 0RF oxycodone 5 mg tablet 5 mg PO Q6H PRN (Reason: pain (scale score 7-10)) 7 Days Qty: 20 0RF Primary Care Provider: Dao Paulino Referrals: Dao Paulino MD [Primary Care Provider] - 3-5 Days Print Language: Ethiopian Disposition Disposition: Home, Self Care
[2025-01-16 19:24] LABS: Absolute Lymphocyte Count 1.95 X10^3/uL (0.83-4.51); Absolute Neutrophil Count 10.1 X10^3/uL (2.0-7.7); Basophil# 0.05 X10^3/uL; Basophil% 0.4 % (0-1); Eosinophil# 0.18 X10^3/uL; Eosinophils% 1.4 % (0-5); Hematocrit 30.9 % (37-47); Hemoglobin 9.8 g/dL (12.0-15.0); Lymphocyte # 1.95 X10^3/ul (0.83-4.51); Lymphocyte % 14.7 % (19-41); Mean Corp Hgb Conc 31.7 g/dL (32-36); Mean Corpuscular Hgb 25.5 pg (27.0-32.0); Mean Corpuscular Volume 80.5 fL (81-99); Monocyte# 0.94 X10^3/uL; Monocyte% 7.1 % (0-10); NRBC Flagged by Analyzer 0 % (0-5); Neutrophil # 10.12 X10^3/uL (2.7-7.7); Platelet Count 436 K/mm3 (150-450); RBC Distribution Width CV 16.7 % (11.6-14.6); RBC Distribution Width SD 49.2 fl (35.1-43.9); Red Blood Count 3.84 M/mm3 (4.2-5.4); White Blood Count 13.3 K/mm3 (4.4-11.0)
[2025-01-16 19:25] LABS: Mucous, Urine 0 SEEN /hpf (<or=2+)
[2025-01-16] MEDS: 0.9% Normal Saline (1000mL) 1,000 ML 1000 ML IV (19:25)
[2025-01-16 19:28] LABS: Color, Urine Yellow (Yellow); Glucose, Dipstick Normal (Normal); Ketone-Dipstick 5 mg/dl (Negative); Leukocyte Esterase-Dipstick 500 /ul (Negative); Nitrite-Dipstick Positive (Negative); Occult Blood-Urine 250 /ul (Negative); Protein-Dipstick 100 mg/dl (Negative); Urine Bilirubin Dipstick Negative (Negative); Urine Clarity Cloudy (Clear); Urine Urobilinogen 4 mg/dl (Normal)
[2025-01-16] MEDS: Meclizine HCl 25 MG Tablet PO (19:28)
[2025-01-16 19:36] LABS: Amorphous Sediment 4+ URATE
[2025-01-16 19:37] LABS: White Blood Cells >100 SEEN /hpf (0-5)
[2025-01-16 19:37] LABS: Anion Gap 8 (5-15); BUN 15 mg/dL (7-18); BUN/Creat Ratio 18.9 RATIO (10-20); Calcium,Total 9.2 mg/dL (8.5-10.1); Chloride 103 mmol/L (98-107); Creatinine, Serum 0.79 mg/dL (0.55-1.02); EST Glomerular Filtration Rate 96 mL/min (>60); Est Glom Filt Rate - Afr Amer 116 mL/min (>60); Estimated Creatinine Clearance 134.79 ml/min; Glucose 108 mg/dL (74-106); Partial Thromboplast Time 28.3 Seconds (24.1-36.2); Potassium 3.9 mmol/L (3.5-5.1); Sodium Level 136 mmol/L (136-145)
[2025-01-16 19:38] LABS: Red Blood Cells-Urine 10-25 SEEN /hpf (0-5); Squamous Epithelial Cells - UA 0-5 SEEN /hpf (5-10)
[2025-01-16 19:39] LABS: Bacteria 2+ /hpf (None Seen)
[2025-01-16 19:40] LABS: International Normalized Ratio 1.1; Prothrombin Time (Protime)PT. 14.3 SECONDS (11.7-14.9)
--- NOTE | 2025-01-16 19:40 | RAD_ITS ---
PROCEDURE: CHEST 1 VIEW (PORTABLE) REASON FOR EXAM: Cough TECHNIQUE: Frontal view of the chest. COMPARISON: 11/08/2024 FINDINGS: The hazy opacity throughout the left lung field is likely due to superimposed soft tissues. No definitive pulmonary opacity identified. Minimal atelectasis or scarring is present in the left lung base. No pleural effusion or pneumothorax. The cardiomediastinal silhouette is unremarkable. There is a right chest port with the catheter tip at the cavoatrial junction. No acute osseous or soft tissue abnormality. Cervical fusion hardware is present. RAD/Chest 1 View (Portable) IMPRESSION: 1. Limited exam due to patient positioning. 2. Hazy opacity at the left lung is likely due to superimposed soft tissues. 3. No acute cardiopulmonary process. Reading Location: [facility]
[2025-01-16 20:08] LABS: Lactic Acid 0.9 mmol/L (0.4-1.9)
[2025-01-16] MEDS: Cefepime HCl 2 GM in 0.9% Normal Saline (100mL MB+) 100 ML IV (21:04)
[2025-01-16 21:16] VITALS: BP 100/51; BP 110/51; PULSE 107; PULSE 110; RESP 18; TEMP 37.5; O2SAT 97; O2SAT 98
--- NOTE | 2025-01-16 22:21 | ED.RN ---
CALLED PHYSICIANS TO ARRANGE TRANSPORT FOR PT, ETA IS 2-3 HOURS ([phone]).
[2025-01-16 23:10] VITALS: BP 107/49; PULSE 109; RESP 25; O2SAT 100
[2025-01-17 01:12] VITALS: RESP 18
== END 2025-01-17 02:08 | disposition home or self-care (01) ==
PROVIDERS: Emergency Provider Emergency Medicine; PCP Family Medicine; Visit Provider Emergency Medicine
DX: N39.0 Urinary tract infection, site not specified (principal); G82.50 Quadriplegia, unspecified; L89.90 Pressure ulcer of unspecified site, unspecified stage; R42 Dizziness and giddiness; R50.9 Fever, unspecified; R05.9 Cough, unspecified; R11.0 Nausea; Z79.82 Long term (current) use of aspirin; Z79.899 Other long term (current) drug therapy; Z87.891 Personal history of nicotine dependence; Z11.52 Encounter for screening for COVID-19
CPT/HCPCS: 71045; 80048; 81001; 83605; 85025; 85610; 85730; 87040; 87077; 87086; 87088; 87186; 87631; 96361; 96365; 99285; A4216

== ENCOUNTER 2025-01-17 15:22 | Outpatient (RCR) | payer MEDICAID, SELFPAY ==
[2025-01-01 00:12] VITALS: BP 93/47; PULSE 91; RESP 18; TEMP 36.3
[2025-01-17 15:41] VITALS: BP 106/57; PULSE 105; RESP 20; TEMP 37.3
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
== END 2025-01-28 23:59 | disposition home or self-care (01) ==
LOC: WC 15:22
PROVIDERS: PCP Family Medicine; Referring Provider Nurse Practitioner Family; Visit Provider Surgery Plastic and Reconstructive Surgery
DX: L89.153 Pressure ulcer of sacral region, stage 3 (principal); Z79.82 Long term (current) use of aspirin; Z79.899 Other long term (current) drug therapy
CPT/HCPCS: 11042; 11045

== ENCOUNTER 2025-02-02 16:00 | Inpatient (IN) | payer MEDICAID, SELFPAY ==
[2025-02-02] VITALS (9 sets, daily range): BP systolic 129–183; BP diastolic 79–107; PULSE 107–133; RESP 16–23; TEMP 36.3–37.6; O2SAT 93–100; BMI 36.6; BMI 37.0
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
[2025-02-02] MEDS: 0.9% Normal Saline (1000mL) 1,000 ML 999 ML IV (17:42)
[2025-02-02 17:44] LABS: Absolute Lymphocyte Count 2.85 X10^3/uL (0.83-4.51); Absolute Neutrophil Count 11.6 X10^3/uL (2.0-7.7); Basophil# 0.06 X10^3/uL; Basophil% 0.4 % (0-1); Eosinophil# 0.28 X10^3/uL; Eosinophils% 1.8 % (0-5); Hematocrit 31.6 % (37-47); Hemoglobin 9.7 g/dL (12.0-15.0); Lymphocyte # 2.85 X10^3/ul (0.83-4.51); Mean Corp Hgb Conc 30.7 g/dL (32-36); Mean Corpuscular Volume 78.2 fL (81-99); Mean Platelet Vol. 8.8 fl (6.2-12.0); Monocyte# 0.96 X10^3/uL; Monocyte% 6.1 % (0-10); NRBC Flagged by Analyzer 0 % (0-5); Neutrophil # 11.59 X10^3/uL (2.7-7.7); Neutrophil % 72.9 % (47-70); Platelet Count 692 K/mm3 (150-450); RBC Distribution Width CV 16.5 % (11.6-14.6); RBC Distribution Width SD 47.2 fl (35.1-43.9); Red Blood Count 4.04 M/mm3 (4.2-5.4); White Blood Count 15.9 K/mm3 (4.4-11.0)
--- NOTE | 2025-02-02 17:45 | RAD_ITS ---
PROCEDURE: CHEST 1 VIEW (PORTABLE) REASON FOR EXAM: Chest pain TECHNIQUE: Frontal view of the chest. COMPARISON: Chest radiograph dated 01/16/2025 FINDINGS: Right-sided Port-A-Cath with its tip in the SVC. The heart size is normal. The lungs are clear. Lower cervical spine fusion hardware. RAD/Chest 1 View (Portable) IMPRESSION: No focal consolidation. Reading Location: [facility]
[2025-02-02 17:53] LABS: Prothrombin Time (Protime)PT. 13.6 SECONDS (11.7-14.9)
[2025-02-02 18:01] LABS: Mucous, Urine 0 SEEN /hpf (<or=2+)
[2025-02-02 18:06] LABS: Color, Urine Yellow (Yellow); Glucose, Dipstick Normal (Normal); Ketone-Dipstick Negative (Negative); Leukocyte Esterase-Dipstick 500 /ul (Negative); Nitrite-Dipstick Positive (Negative); Occult Blood-Urine 150 /ul (Negative); Protein-Dipstick 100 mg/dl (Negative); Urine Bilirubin Dipstick Negative (Negative); Urine Clarity Sl. Cloudy (Clear); Urine Urobilinogen 1 mg/dl (Normal)
[2025-02-02 18:26] LABS: Amorphous Sediment 2+ URATE; Bacteria 2+ /hpf (None Seen); Red Blood Cells-Urine 50-100 SEEN /hpf (0-5); Squamous Epithelial Cells - UA 5-10 SEEN /hpf (5-10); White Blood Cells 50-100 SEEN /hpf (0-5)
[2025-02-02 18:27] LABS: ALB/GLOB Ratio 0.7 RATIO (0.9-2.4); AST(SGOT) 34 U/L (<=31); Alanine Aminotransfer ALT/SGPT 26 U/L (<=34); Albumin, Serum 2.9 g/dL (3.5-5.0); Alkaline Phosphatase 98 U/L (35-104); Anion Gap 16 (5-15); BUN 12 mg/dL (4-19); BUN/Creat Ratio 17.2 RATIO (10-20); Carbon Dioxide 18.7 mmol/L (21.0-32.0); Chloride 102 mmol/L (98-108); Creatinine, Serum 0.71 mg/dL (0.70-1.20); EST Glomerular Filtration Rate 123 (>60); Estimated Creatinine Clearance 145.42 ml/min (50-250); Globulin 4.3 g/dL (2.2-4.2); Glucose 125 mg/dL (70-99); Potassium 4.2 mmol/L (3.3-5.1); Protein, Total 7.2 g/dL (5.9-8.4); Sodium Level 137 mmol/L (133-145); Total Bilirubin 0.22 mg/dL (0.00-1.30)
[2025-02-02 18:31] LABS: Partial Thromboplast Time < 24.0 Seconds (24.1-36.2)
[2025-02-02] MEDS: Ceftriaxone 1 GM/50 ML BAG IV (19:00)
[2025-02-02 19:08] LABS: Lactic Acid 1.8 mmol/L (0.0-2.0)
--- NOTE | 2025-02-02 20:10 | HP.PCM.HOS_ITS ---
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 Most recent culture noted Enterobacter 80,000 200,000 sensitive to meropenem, gentamicin and cefepime. Workup in the ED included T98.4, heart rate 133, BP 129/85, respiratory rate 23, 93% on room air with most recent repeat vitals T99.2 Orally, heart rate 123, BP 172/104, respiratory rate 17, 97% room air, CBC with WC 15.9, 9.7, MCV 78.2, platelets 692 with left shift, coags with PTT less than 24 otherwise not marked appearing, CMP with convexity 10.7, anion gap 18, BUN/creatinine 12/0.71, GFR 123, glucose 125, hepatic profile unremarkable, lactic acid 1.8, troponin pending upon request evaluation of patient, urine cloudy, spec gravity 1.020, protein 100, occult blood 150, positive nitrite, leukocyte esterase 500 with urine RBCs and WBCs 50-100 with 2+ urine bacteria, urine culture pending per ED, chest x-ray with no acute cardiopulmonary findings, EKG with sinus tachycardia with no acute evidence of ischemia. In the ED patient ministered 1 L normal saline and Rocephin 1 g IV x 1. [facility] Medical History Postoperative hypotension Anxiety Uses wheelchair Anemia Leukocytosis Thrombocytosis Microcytic anemia Stage IV pressure ulcer of sacral region Complication of indwelling urinary catheter Quadriplegia Purple urine bag syndrome Acute osteomyelitis of sacrum Neurogenic bladder Urinary retention Depression Seizures Indwelling urethral catheter present Former smoker Ureteral calculus Autonomic dysreflexia Paraplegic spinal paralysis Urinary tract infection Neck fracture Single kidney Double uterus Home Medications ?Medication ?Instructions ?Recorded ?Last Taken ?Type aspirin 81 mg tablet,delayed 81 mg PO DAILY heart heal th 07/17/21 02/02/25 History release baclofen 20 mg tablet 40 mg PO BID muscle spasms 0 07/17/21 02/02/25 History cholecalciferol (vitamin D3) 25 25 mcg PO DAILY supple ment 07/17/21 02/02/25 History mcg (1,000 unit) capsule (Vitamin D3) docusate sodium 100 mg capsule 100 mg PO TID PRN stool softener 07/17/21 10/27/22 08:00 History escitalopram oxalate 20 mg tablet 20 mg PO DAILY depre ssion 07/17/21 02/02/25 History nitroglycerin 2 % transdermal 1 inch transdermal PRN P RN 07/17/21 Unknown History ointment autonomic dysreflexia methenamine hippurate 1 gram 1 g PO Q12H UTI preventio n 09/12/22 02/02/25 History tablet (Hiprex) ondansetron 4 mg disintegrating 8 mg (2 x 4 mg) PO Q8H PRN PRN 08/23/23 Unknown Rx tablet Nausea #20 tabs oxybutynin chloride 5 mg 5 mg PO DAILY overactive roshan dder 10/11/23 02/02/25 History tablet,extended release 24 hr acetic acid 0.25 % irrigation 1,000 ml irrigation KANA Y wounds 10/25/24 Unknown Rx solution #6,000 mL Allergy/AdvReac Type Severity Reaction Status Date / Time vancomycin Allergy Severe Other Verified 02/02/25 17:45 Family History other other (Patient per prior history without marked maternal or paternal family history including HD, DM, CA.) Surgical History History of tracheostomy History of urostomy History of cystoscopy History of colectomy History of urethral stent S/P cervical spinal fusion H/O thumb surgery Social History household members: family Smoking Status: Former smoker alcohol intake: never substance use type: does not use ROS ROS Narrative Admission Review of Systems: CONSTITUTIONAL: No weight loss, + fever, chills, weakness or fatigue. HEENT: Eyes: No visual loss, blurred vision, double vision or yellow sclerae. Ears, Nose, Throat: No hearing loss, sneezing, congestion, runny nose or sore throat. SKIN: No rash or itching, lesions, except + chronic wounds, sacral with VAC in place. CARDIOVASCULAR: + Tachycardia/palpitations, chronic edema, pleuritic chest discomfort. No orthopnea, syncopal events. RESPIRATORY: No shortness of breath, cough or sputum, wheezing, hemoptysis. GASTROINTESTINAL: + Mildly decreased appetite, left lower quadrant ostomy in place. No nausea, vomiting or diarrhea, abdominal pain, melena, BRBPR. GENITOURINARY: No dysuria, frequency, urgency or retention. NEUROLOGICAL: + Incomplete quadriplegia, no headache, dizziness, syncope, change in bowel or bladder control, seizure. MUSCULOSKELETAL: + muscle, back pain, joint pain or stiffness. HEMATOLOGIC: + Chronic anemia. No marked easy bleeding/bruising. LYMPHATICS: No enlarged nodes. No history of splenectomy. PSYCHIATRIC: + History of anxiety and depression. ENDOCRINOLOGIC: No reports of sweating, cold or heat intolerance. No polyuria or polydipsia. ALLERGIES: No history of asthma, hives, eczema or rhinitis. Vital Signs Vital Signs Vital Signs: 02/02/25 16:01 02/02/25 16:31 02/02/25 17:09 Temperature 98.4 F 99.2 F H Temperature Source Oral Oral Pulse Rate 133 H 130 H Respiratory Rate 23 H 16 Respiratory Effort Respiratory Pattern Blood Pressure 129/85 H 183/107 H Blood Pressure Mean 99 132 Pulse Ox 93 93 98 Oxygen Delivery Method Room Air Room Air Room Air 02/02/25 17:25 02/02/25 17:43 02/02/25 18:00 Temperature 99.7 F H Temperature Source Oral Pulse Rate 123 H Respiratory Rate 18 Respiratory Effort Normal Respiratory Pattern Tachypnea Blood Pressure 136/79 H Blood Pressure Mean 98 Pulse Ox 98 Oxygen Delivery Method Room Air Room Air 02/02/25 19:00 Temperature 99.2 F H Temperature Source Oral Pulse Rate 123 H Respiratory Rate 17 Respiratory Effort Respiratory Pattern Blood Pressure 172/104 H Blood Pressure Mean 126 Pulse Ox 97 Oxygen Delivery Method Room Air Weight Weight: 220 lb Body Mass Index (BMI) 36.6 Physical Exam Narrative Physical Examination: General: Awake, alert, oriented x > 3, cooperative, seated upright in ED bed, fatigued appearing but no distress noted. Skin: Flushed face otherwise normal skin color, normal turgor, no icterus, no cyanosis except chronic sacral wounds with VAC in place. HEENT: AT/NC, EOMI, PERRLA, MMM, no carotid bruits or JVD noted; however, difficult exam given thickened neck. Lungs: Diminished, greater bases, mildly increased respiratory rate but no distress, no rales, ronchi or wheezing. Heart: Tachycardic with regular rhythm; no gallop, rub audible. Abdomen: Soft, obese, NTTP, no obvious distention but habitus makes evaluation difficult, distant BS, left lower quadrant ostomy in place with appropriate output, no appreciated HSM. Extremities: No cyanosis, no clubbing, chronic bilateral pedal to distal umanzor. Neurological: Patient awake, alert, oriented x > 3, cooperative, oriented as noted, cognitive function intact, pupils equally reactive to light and accommodation, cranial nerves grossly intact, incomplete quadriplegia, strength accordingly severely globally decreased. Psychiatric: Affect appears fatigued, no acute evidence of depressive or anxiety feelings. Results Lab / Micro Data 02/02/25 17:29 02/02/25 17:29 Labs: Laboratory Results - last 24 hr 02/02/25 17:29: WBC 15.9 H, RBC 4.04 L, Hgb 9.7 L, Hct 31.6 L, MCV 78.2 L, MCH 24.0 L, MCHC 30.7 L, RDW Std Deviation 47.2 H, RDW Coeff of Anurag 16.5 H, Plt Count 692 H, MPV 8.8, Immature Gran % (Auto) 0.800, Neut % (Auto) 72.9 H, Lymph % (Auto) 18.0 L, [place] % (Auto) 6.1, Eos % (Auto) 1.8, Baso % (Auto) 0.4, A bsolute Neuts (auto) 11.6 H, Absolute Lymphs (auto) 2.85, Nucleated RBC % 0, PT 13.6, INR 1.0, APTT < 24.0 L, Sodium 137, Potassium 4.2, Chloride 102, Carbon Dioxide 18.7 L, Anion Gap 16 H, BUN 12, Creatinine 0.71, Estim Creat Clear Calc 145.42, Est GFR (MDRD) Non-Af 123, BUN/Creatinine Ratio 17.2, Glucose 125 H, Lactic Acid 1.8, Calcium 9.0, Total Bilirubin 0.22, AST 34 H, ALT 26, Alkaline Phosphatase 98, Total Protein 7.2, Albumin 2.9 L, Globulin 4.3 H, A lbumin/Globulin Ratio 0.7 L 02/02/25 17:58: Urine Color Yellow, Urine Clarity Sl. Cloudy, Urine pH 6.0, Ur Specific [place] 1.020, Urine Protein 100 H, Urine Glucose (UA) Normal, Urine Ketones Negative, Urine Occult Blood 150 H, Urine Nitrite Positive H, Urine Bilirubin Negative, Urine Urobilinogen 1 H, Ur Leukocyte Esterase 500 H, Urine RBC 50-100 SEEN, Urine WBC 50-100 SEEN, Ur Squamous Epith Cells 5-10 SEEN, Amorphous Sediment 2+ URATE, Urine Bacteria 2+, Urine Mucus 0 SEEN Micro: Microbiology 02/02/25 17:09 Mucosa - Nose SARS-CoV-2, Influenza & RSV (PCR) - Final Imaging Radiology Impression Chest X-Ray 02/02/25 17:45 IMPRESSION: No focal consolidation. 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 #1. Acute Complicated Urinary Tract Infection secondary to Chronic indwelling catheter: Will admit to PCU given tachycardia noted, will administer additional IVF bolus and MIVFs, UA upon ED evaluation remarkable, pending UCx, monitor I/Os, will transition to IV cefepime based on previous cultures w/ transition as able pending sensitivities and speciation. Bld cx x 2 obtained in the ED. PT/OT/case management consulted for discharge planning. Temporally hold patient chronic oxybutynin regimen given current presentation. #2. Indeterminate cardiac enzyme, low suspicion for cardiac event: In the ED troponin obtained and noted to be 16 with repeat delta at 18, to be cautious will maintain on telemetry especially given #1 and persistent tachycardia in the setting, cycle cardiac enzymes although low suspicion for any cardiac etiology, magnesium level requested #3. Incomplete quadriplegia s/p cervical fracture: s/p cervical spinal fusion, patient with chronic indwelling gross catheter secondary to neurogenic bladder, chronic spasticity, Hx Autonomic dysreflexia. Will continue patient on baclofen, transdermal nitroglycerin for autonomic dysreflexia #4. Hypertension: Previously had been on CARISA inhibitor, not on any regimen currently, clarified to be cautious, as needed IV hydralazine in the interim. #5. Chronic sacral wounds secondary to #3: Patient with history of MRSA, status post colostomy creation, will continue offloading, wound care evaluation requested as well as ongoing 3 times per week VAC change with continued VAC placement per previous plastic surgery note reviewed. #6. Seizure disorder: Patient previously on Keppra, currently does not appear to be listed, clarifying to be certain. #7. Former tobacco use: Encourage continued tobacco cessation. #8. Anxiety and depression: We will continue patient home escitalopram regimen. #9. Obesity: Weight loss and lifestyle changes encouraged. #10. GERD: Currently does not appear to be listed on any chronic regimen, previously had been on famotidine, will have as needed Mylanta for symptoms. #11. Chronic microcytic anemia: Admission globin 9.7, MCV 78.2, patient levels have certainly vacillated, most recently 01/16/2025 hemoglobin 9.8, stable, continue to closely trend. #12. DVT prophylaxis: Lovenox. Charges/Coding Visit Charges Inpatient E&M: 60778 Init Hosp L3
[2025-02-02 20:16] LABS: Troponin T High Sensitivity 16 ng/L (<=14)
[2025-02-02] MEDS: Cefepime HCl 2 GM in 0.9% Normal Saline (100mL MB+) 100 ML IV (23:07)
[2025-02-02] MEDS: Menthol/Lanolin/Calamine/Znox 113 GM Tube 1 APPLIC TOPICAL (23:09)
[2025-02-03] VITALS (7 sets, daily range): BP systolic 98–146; BP diastolic 57–99; PULSE 98–124; RESP 12–18; TEMP 36.4–36.7; O2SAT 98–100; BMI 38.8
[2025-02-03 00:18] LABS: TROPONIN VARIANCE 2 HR 2; Troponin T High Sens 2 HR 18 ng/L (<=14)
[2025-02-03] MEDS: 0.9% Normal Saline (1000mL) 1,000 ML 100 ML IV (00:47)
[2025-02-03] MEDS: 0.9% Normal Saline (1000mL) 1,000 ML 999 ML IV (02:00)
[2025-02-03] MEDS: Acetaminophen 325 MG Tablet 650 MG PO (03:49)
[2025-02-03 06:25] LABS: Absolute Lymphocyte Count 3.45 X10^3/uL (0.83-4.51); Absolute Neutrophil Count 8.9 X10^3/uL (2.0-7.7); Basophil# 0.06 X10^3/uL; Basophil% 0.4 % (0-1); Eosinophil# 0.35 X10^3/uL; Eosinophils% 2.6 % (0-5); Hemoglobin 7.8 g/dL (12.0-15.0); Lymphocyte # 3.45 X10^3/ul (0.83-4.51); Lymphocyte % 25.2 % (19-41); Mean Corp Hgb Conc 31.2 g/dL (32-36); Mean Corpuscular Hgb 24.6 pg (27.0-32.0); Mean Corpuscular Volume 78.9 fL (81-99); Mean Platelet Vol. 8.8 fl (6.2-12.0); Monocyte# 0.86 X10^3/uL; Monocyte% 6.3 % (0-10); NRBC Flagged by Analyzer 0 % (0-5); Neutrophil # 8.87 X10^3/uL (2.7-7.7); Neutrophil % 64.9 % (47-70); Platelet Count 594 K/mm3 (150-450); RBC Distribution Width CV 16.5 % (11.6-14.6); RBC Distribution Width SD 47.8 fl (35.1-43.9); Red Blood Count 3.17 M/mm3 (4.2-5.4); White Blood Count 13.7 K/mm3 (4.4-11.0)
[2025-02-03] MEDS: Cefepime HCl 2 GM in 0.9% Normal Saline (100mL MB+) 100 ML IV ×3 (06:33→23:44)
[2025-02-03 06:56] LABS: ALB/GLOB Ratio 0.7 RATIO (0.9-2.4); AST(SGOT) 21 U/L (<=31); Alanine Aminotransfer ALT/SGPT 20 U/L (<=34); Albumin, Serum 2.5 g/dL (3.5-5.0); Alkaline Phosphatase 72 U/L (35-104); Anion Gap 11 (5-15); BUN 13 mg/dL (4-19); BUN/Creat Ratio 21.2 RATIO (10-20); Calcium,Total 8.2 mg/dL (7.6-11.0); Carbon Dioxide 20.2 mmol/L (21.0-32.0); Chloride 108 mmol/L (98-108); Creatinine, Serum 0.61 mg/dL (0.70-1.20); EST Glomerular Filtration Rate 129 (>60); Estimated Creatinine Clearance 174.84 ml/min (50-250); Globulin 3.4 g/dL (2.2-4.2); Glucose 100 mg/dL (70-99); Magnesium 1.8 mg/dL (1.5-2.2); Potassium 4.4 mmol/L (3.3-5.1); Protein, Total 5.9 g/dL (5.9-8.4); Sodium Level 139 mmol/L (133-145); Total Bilirubin 0.19 mg/dL (0.00-1.30)
--- NOTE | 2025-02-03 08:23 | CON.PCM.SX_ITS ---
Assessment & Plan Assessment/Plan (1) Pressure ulcer: QUALIFIERS: Pressure injury location: sacral region Pressure injury stage: stage 3 Qualified Code(s): L89.153 - Pressure ulcer of sacral region, stage 3 PLAN: Concern for worsening of the pressure ulcer. Needs a pressure offloading bed while in the hospital (ordered) and every 2 hours turns for pressure offload. Recommend nutrition consultation as albumin 2.5. She will need protein supplementation. Continue wound VAC 3 times per week changes. Once nutrition is optimized we can consider reconstruction, but it is unlikely given the severity of wound that she will granulate over the bone and be a candidate for skin graft again. She will likely need reconstruction with a flap reconstruction at some point. Plastic surgery will continue to follow. Recommend weekly nutrition labs HPI Consult Data Date of Consult: 02/03/25 HPI Narrative HPI Narrative: KIERRA NARANJO, is a 24 F who presents as an admission for a UTI with a persistent sacral wound. The wound was much improved since initial I&D of the wound in October 2024, and the wound was skin grafted on 12 January 2025; however, the skin graft melted and the wound became larger (concern for pressure). She was unable to follow-up with the wound care center this past couple of weeks secondary to reported sickness at home (canceled her transportation). Patient reports good pressure offloading at home with her pressure offloading bed and she reports that she has not been sitting in her wheelchair as she was asked not to do so for pressure offloading purposes as the graft healed. Reports high-protein intake. Today on the floor, patient is afebrile but is tachycardic into the 120s and with a white blood cell count of 13.7 thousand. She reports feeling well overall. Albumin was 2.5. Glucose has been consistently in the low 100s. [facility] Medical History Postoperative hypotension Anxiety Uses wheelchair Anemia Leukocytosis Thrombocytosis Microcytic anemia Stage IV pressure ulcer of sacral region Complication of indwelling urinary catheter Quadriplegia Purple urine bag syndrome Acute osteomyelitis of sacrum Neurogenic bladder Urinary retention Depression Seizures Indwelling urethral catheter present Former smoker Ureteral calculus Autonomic dysreflexia Paraplegic spinal paralysis Urinary tract infection Neck fracture Single kidney Double uterus Home Medications ?Medication ?Instructions ?Recorded ?Last Taken ?Type aspirin 81 mg tablet,delayed 81 mg PO DAILY heart heal th 07/17/21 02/02/25 History release baclofen 20 mg tablet 40 mg PO BID muscle spasms 0 07/17/21 02/02/25 History cholecalciferol (vitamin D3) 25 25 mcg PO DAILY supple ment 07/17/21 02/02/25 History mcg (1,000 unit) capsule (Vitamin D3) docusate sodium 100 mg capsule 100 mg PO TID PRN stool softener 07/17/21 10/27/22 08:00 History escitalopram oxalate 20 mg tablet 20 mg PO DAILY depre ssion 07/17/21 02/02/25 History nitroglycerin 2 % transdermal 1 inch transdermal PRN P RN 07/17/21 Unknown History ointment autonomic dysreflexia methenamine hippurate 1 gram 1 g PO Q12H UTI preventio n 09/12/22 02/02/25 History tablet (Hiprex) ondansetron 4 mg disintegrating 8 mg (2 x 4 mg) PO Q8H PRN PRN 08/23/23 Unknown Rx tablet Nausea #20 tabs oxybutynin chloride 5 mg 5 mg PO DAILY overactive roshan dder 10/11/23 02/02/25 History tablet,extended release 24 hr acetic acid 0.25 % irrigation 1,000 ml irrigation KANA Y wounds 10/25/24 Unknown Rx solution #6,000 mL Allergy/AdvReac Type Severity Reaction Status Date / Time vancomycin Allergy Severe Other Verified 02/02/25 17:45 Family History other Surgical History History of tracheostomy History of urostomy History of cystoscopy History of colectomy History of urethral stent S/P cervical spinal fusion H/O thumb surgery Social History household members: family Smoking Status: Former smoker alcohol intake: never substance use type: does not use Physical Exam Narrative Wound VAC removed 12 x 5 cm wound with lateral tunneling, no fluid collection or induration. Wound is now stage IV with exposed bone at the base of the wound (sacral bone). The skin graft has melted away and has has the soft tissue overlying the sacrum Const alert, oriented x3, no apparent distress and well nourished; Negative for average body habitus or healthy appearing HEENT head/scalp atraumatic and moist oral mucous membranes HEENT Narrative: appears slightly flushed Head and Scalp: normocephalic Resp normal respiratory effort Auscultation: Negative for rales, rhonchi or wheezes Extremity no clubbing, cyanosis or edema Extremity Narrative: 2+ pedal and radial pulses No lower extremity swelling Donor site healing well from left thigh Neuro oriented x3, moves all extremities and no focal motor deficits Speech: speech normal Psych affect normal Psych Narrative: appears well Lab / Micro Data 02/03/25 05:53 02/03/25 05:53 Labs: Laboratory Results - last 24 hr 02/02/25 17:29: WBC 15.9 H, RBC 4.04 L, Hgb 9.7 L, Hct 31.6 L, MCV 78.2 L, MCH 24.0 L, MCHC 30.7 L, RDW Std Deviation 47.2 H, RDW Coeff of Anurag 16.5 H, Plt Count 692 H, MPV 8.8, Immature Gran % (Auto) 0.800, Neut % (Auto) 72.9 H, Lymph % (Auto) 18.0 L, [place] % (Auto) 6.1, Eos % (Auto) 1.8, Baso % (Auto) 0.4, A bsolute Neuts (auto) 11.6 H, Absolute Lymphs (auto) 2.85, Nucleated RBC % 0, PT 13.6, INR 1.0, APTT < 24.0 L, Sodium 137, Potassium 4.2, Chloride 102, Carbon Dioxide 18.7 L, Anion Gap 16 H, BUN 12, Creatinine 0.71, Estim Creat Clear Calc 145.42, Est GFR (MDRD) Non-Af 123, BUN/Creatinine Ratio 17.2, Glucose 125 H, Lactic Acid 1.8, Calcium 9.0, Total Bilirubin 0.22, AST 34 H, ALT 26, Alkaline Phosphatase 98, Troponin T High Sens 16 H, Total Protein 7.2, Albumin 2.9 L, G lobulin 4.3 H, Albumin/Globulin Ratio 0.7 L 02/02/25 17:58: Urine Color Yellow, Urine Clarity Sl. Cloudy, Urine pH 6.0, Ur Specific [place] 1.020, Urine Protein 100 H, Urine Glucose (UA) Normal, Urine Ketones Negative, Urine Occult Blood 150 H, Urine Nitrite Positive H, Urine Bilirubin Negative, Urine Urobilinogen 1 H, Ur Leukocyte Esterase 500 H, Urine RBC 50-100 SEEN, Urine WBC 50-100 SEEN, Ur Squamous Epith Cells 5-10 SEEN, Amorphous Sediment 2+ URATE, Urine Bacteria 2+, Urine Mucus 0 SEEN 02/02/25 23:26: Troponin T Hi Sens 2 Hr 18 H, Troponin T Hi Sens 2Hr Delta 2 02/03/25 05:53: WBC 13.7 H, RBC 3.17 L, Hgb 7.8 L, Hct 25.0 L, MCV 78.9 L, MCH 24.6 L, MCHC 31.2 L, RDW Std Deviation 47.8 H, RDW Coeff of Anurag 16.5 H, Plt Count 594 H, MPV 8.8, Immature Gran % (Auto) 0.600, Neut % (Auto) 64.9, Lymph % (Auto) 25.2, [place] % (Auto) 6.3, Eos % (Auto) 2.6, Baso % (Auto) 0.4, Absolute Neuts (auto) 8.9 H, Absolute Lymphs (auto) 3.45, Nucleated RBC % 0, Sodium 139, Potassium 4.4, Chloride 108, Carbon Dioxide 20.2 L, Anion Gap 11, BUN 13, C reatinine 0.61 L, Estim Creat Clear Calc 174.84, Est GFR (MDRD) Non-Af 129, B UN/Creatinine Ratio 21.2 H, Glucose 100 H, Calcium 8.2, Magnesium 1.8, Total Bilirubin 0.19, AST 21, ALT 20, Alkaline Phosphatase 72, Total Protein 5.9, A lbumin 2.5 L, Globulin 3.4, Albumin/Globulin Ratio 0.7 L Micro: Microbiology 02/02/25 17:09 Mucosa - Nose SARS-CoV-2, Influenza & RSV (PCR) - Final Imaging Radiology Impression Chest X-Ray 02/02/25 17:45 IMPRESSION: No focal consolidation. Reading [facility] Charg[facility]/Coding Procedures Integumentary [id number]: [id number] Global Visit
--- NOTE | 2025-02-03 09:51 | CASEMGMT ---
Addendum entered by Slime Fleming 02/03/25 10:37: Pt is active with SN. Slime Fleming DC Planning Asst. Original Note: Discharge Planning Updates sent to [facility] with note asking which disciplines pt is receiving. Slime Fleming DC Planning Asst.
--- NOTE | 2025-02-03 10:12 | PCM.PN.HOSP ---
Reason for Visit Reason for Visit: Diagnoses Pressure ulcer of sacral region, stage 3 (02/02/25) Urinary tract infection, site not specified (02/02/25) Subjective Subjective Patient is a 24-year-old lady with history of neck fracture with cervical spinal fusion with incomplete quadriplegia with a chronic indwelling Ma catheter secondary to neurogenic bladder who was sent to the ED by her home health care nurse with complaints of fever and tachycardia. An assessment of acute complicated UTI was made admitted to monitored bed for further management Objective Data Objective Data Vital Signs: Vital Signs Temp Pulse Resp BP Pulse Ox O2 Del Method 98.1 F 109 H 17 98/57 L 99 Room Air 02/03/25 05:41 02/03/25 05:53 02/03/25 05:41 02/03/25 05:41 02/03/25 07:06 02/03/25 07:06 Oxygen Delivery Method Room Air Weight: 105.9 kg Body Mass Index (BMI) 38.8 Intake & Output: Intake and Output for Last 24 Hours 02/01/25 02/02/25 02/03/25 23:59 23:59 23:59 Intake Total 1050 / 1050 1321.67 / 1321.67 Output Total 600 / 600 Balance 1050 / 1050 721.67 / 721.67 Lab / Micro Data 02/03/25 05:53 02/03/25 05:53 Labs: Laboratory Results - last 24 hr 02/02/25 17:29: WBC 15.9 H, RBC 4.04 L, Hgb 9.7 L, Hct 31.6 L, MCV 78.2 L, MCH 24.0 L, MCHC 30.7 L, RDW Std Deviation 47.2 H, RDW Coeff of Anurag 16.5 H, Plt Count 692 H, MPV 8.8, Immature Gran % (Auto) 0.800, Neut % (Auto) 72.9 H, Lymph % (Auto) 18.0 L, [place] % (Auto) 6.1, Eos % (Auto) 1.8, Baso % (Auto) 0.4, Absolute Neuts (auto) 11.6 H, Absolute Lymphs (auto) 2.85, Nucleated RBC % 0, PT 13.6, INR 1.0, APTT < 24.0 L, Sodium 137, Potassium 4.2, Chloride 102, Carbon Dioxide 18.7 L, Anion Gap 16 H, BUN 12, Creatinine 0.71, Estim Creat Clear Calc 145.42, Est GFR (MDRD) Non-Af 123, BUN/Creatinine Ratio 17.2, Glucose 125 H, Lactic Acid 1.8, Calcium 9.0, Total Bilirubin 0.22, AST 34 H, ALT 26, Alkaline Phosphatase 98, Troponin T High Sens 16 H, Total Protein 7.2, Albumin 2.9 L, Globulin 4.3 H, Albumin/Globulin Ratio 0.7 L 02/02/25 17:58: Urine Color Yellow, Urine Clarity Sl. Cloudy, Urine pH 6.0, Ur Specific [place] 1.020, Urine Protein 100 H, Urine Glucose (UA) Normal, Urine Ketones Negative, Urine Occult Blood 150 H, Urine Nitrite Positive H, Urine Bilirubin Negative, Urine Urobilinogen 1 H, Ur Leukocyte Esterase 500 H, Urine RBC 50-100 SEEN, Urine WBC 50-100 SEEN, Ur Squamous Epith Cells 5-10 SEEN, Amorphous Sediment 2+ URATE, Urine Bacteria 2+, Urine Mucus 0 SEEN 02/02/25 23:26: Troponin T Hi Sens 2 Hr 18 H, Troponin T Hi Sens 2Hr Delta 2 02/03/25 05:53: WBC 13.7 H, RBC 3.17 L, Hgb 7.8 L, Hct 25.0 L, MCV 78.9 L, MCH 24.6 L, MCHC 31.2 L, RDW Std Deviation 47.8 H, RDW Coeff of Anurag 16.5 H, Plt Count 594 H, MPV 8.8, Immature Gran % (Auto) 0.600, Neut % (Auto) 64.9, Lymph % (Auto) 25.2, [place] % (Auto) 6.3, Eos % (Auto) 2.6, Baso % (Auto) 0.4, Absolute Neuts (auto) 8.9 H, Absolute Lymphs (auto) 3.45, Nucleated RBC % 0, Sodium 139, Potassium 4.4, Chloride 108, Carbon Dioxide 20.2 L, Anion Gap 11, BUN 13, Creatinine 0.61 L, Estim Creat Clear Calc 174.84, Est GFR (MDRD) Non-Af 129, BUN/Creatinine Ratio 21.2 H, Glucose 100 H, Calcium 8.2, Magnesium 1.8, Total Bilirubin 0.19, AST 21, ALT 20, Alkaline Phosphatase 72, Total Protein 5.9, Albumin 2.5 L, Globulin 3.4, Albumin/Globulin Ratio 0.7 L Micro: Microbiology 02/02/25 17:09 Mucosa - Nose SARS-CoV-2, Influenza & RSV (PCR) - Final Radiography Diagnostic Testing: Radiology Impression Chest X-Ray 02/02/25 17:45 IMPRESSION: No focal consolidation. Reading [facility] Exam Narrative GENERAL: cooperative HEENT: Atraumatic; normocephalic EYES; Anicteric, Normal Conjunctiva NECK; supple, normal thyroid, RESPIRATORY: Diminished to auscultation CARDIOVASCULAR: Regular S1 S2, GI: soft, normoactive bowel sounds, : No Renal angle tenderness; EXTREMITIES: No edema, no clubbing, MUSCULOSKELETAL: no muscle wasting NEURO: Awake; no lateralizing signs. SKIN: Sacral pressure decubitus with wound VAC in place PSYCH; Flat affect Assessment & Plan Assessment/Plan (1) UTI (urinary tract infection): PLAN: Plan Patient is a 24-year-old lady with history of neck fracture with cervical spinal fusion with incomplete quadriplegia with a chronic indwelling Ma catheter secondary to neurogenic bladder who was sent to the ED by her home health care nurse with complaints of fever and tachycardia. An assessment of acute complicated UTI was made admitted to monitored bed for further management 1. Acute complicated UTI secondary to chronic indwelling Ma catheter ? Patient was resuscitated with IV fluids urine culture sent started on broad-spectrum antibiotic therapy with plans to adjust antibiotic therapy based on culture result 2. Anemia ? Secondary to chronic disorder monitoring H&H and transfuse if patient becomes symptomatic or hemoglobin falls below 7 3. History of neck fracture -with cervical spinal fusion with incomplete quadriplegia 4. Indeterminate troponin ? Secondary to demand ischemia from above patient being monitored on continuous telemetry 5.. Chronic sacral wounds ? Patient was seen in consultation by wound care nurse as well as plastic surgery Dr. Gaona, recommended current wound VAC as well as protein supplementation with plans for consideration for possible reconstruction as outpatient 6. Class II obesity with BMI of 39 ? Complicating care weight loss advised 7. Depression with anxiety ? Patient is on escitalopram continue 8. Seizure disorder ? Patient was previously on antiseizure medication per patient she has been taking of 9. DVT prophylaxis ? Subcu enoxaparin with low threshold for discontinuation given patient low hemoglobin level Time spent in the patient's overall evaluation,decision-making process, review of diagnostic data, adjustment of management, discussion with other providers, nursing nursing and ancillary staff involved in patient's care documentation, 50 Minutes Charges/Coding Visit Charges Inpatient E&M: 49839 [facility] Hosp L3
--- NOTE | 2025-02-03 10:49 | PCM.CONS.GEN ---
Assessment & Plan Assessment/Plan (1) UTI (urinary tract infection): PLAN: cxs pending, seen by Dr. Gaona, sacral wound has worsened since skin grafting 01/12/25, cont cefepime. Will follow, thank you HPI Consult Data Date of Consult: 02/03/25 HPI Narrative Reason for Consultation: uti HPI Narrative: KIERRA NARANJO, is a 24 F with incomplete quadriplegia, chronic indwelling gross, presented 3/ with acute onset fever, chills, not feeling well. No abd pain, no new urine changes. Came to ED, admitted on cefepime. Feeling a little better this AM. Full ROS performed and neg except as noted above. [facility] Medical History Postoperative hypotension Anxiety Uses wheelchair Anemia Leukocytosis Thrombocytosis Microcytic anemia Stage IV pressure ulcer of sacral region Complication of indwelling urinary catheter Quadriplegia Purple urine bag syndrome Acute osteomyelitis of sacrum Neurogenic bladder Urinary retention Depression Seizures Indwelling urethral catheter present Former smoker Ureteral calculus Autonomic dysreflexia Paraplegic spinal paralysis Urinary tract infection Neck fracture Single kidney Double uterus Home Medications ?Medication ?Instructions ?Recorded ?Last Taken ?Type aspirin 81 mg tablet,delayed 81 mg PO DAILY heart health 07/17/21 02/02/25 History release baclofen 20 mg tablet 40 mg PO BID muscle spasms 07/17/21 02/02/25 History cholecalciferol (vitamin D3) 25 25 mcg PO DAILY supplement 07/17/21 02/02/25 History mcg (1,000 unit) capsule (Vitamin D3) docusate sodium 100 mg capsule 100 mg PO TID PRN stool softener 07/17/21 10/27/22 08:00 History escitalopram oxalate 20 mg tablet 20 mg PO DAILY depression 07/17/21 02/02/25 History nitroglycerin 2 % transdermal 1 inch transdermal PRN PRN 07/17/21 Unknown History ointment autonomic dysreflexia methenamine hippurate 1 gram 1 g PO Q12H UTI prevention 09/12/22 02/02/25 History tablet (Hiprex) ondansetron 4 mg disintegrating 8 mg (2 x 4 mg) PO Q8H PRN PRN 08/23/23 Unknown Rx tablet Nausea #20 tabs oxybutynin chloride 5 mg 5 mg PO DAILY overactive bladder 10/11/23 02/02/25 History tablet,extended release 24 hr acetic acid 0.25 % irrigation 1,000 ml irrigation DAILY wounds 10/25/24 Unknown Rx solution #6,000 mL Allergy/AdvReac Type Severity Reaction Status Date / Time vancomycin Allergy Severe Other Verified 02/02/25 17:45 Family History other Surgical History History of tracheostomy History of urostomy History of cystoscopy History of colectomy History of urethral stent S/P cervical spinal fusion H/O thumb surgery Social History household members: family Smoking Status: Former smoker alcohol intake: never substance use type: does not use Physical Exam Const alert and no apparent distress General Appearance: cooperative HEENT normocephalic and head/scalp atraumatic Eyes PERRL and EOMs intact bilaterally Neck supple and No nodes Resp normal air movement and clear to auscultation bilaterally Cardio regular rate and regular rhythm GI soft to palpation, non-tender and non-distended Extremity General Extremity: edema Skin Skin Narrative: no new rash Neuro Neuro Narrative: incomplete quadriplegia Lab / Micro Data Attestation: I reviewed the patient's lab results. 02/03/25 05:53 02/03/25 05:53 Labs: Laboratory Results - last 24 hr 02/02/25 17:29: WBC 15.9 H, RBC 4.04 L, Hgb 9.7 L, Hct 31.6 L, MCV 78.2 L, MCH 24.0 L, MCHC 30.7 L, RDW Std Deviation 47.2 H, RDW Coeff of Anurag 16.5 H, Plt Count 692 H, MPV 8.8, Immature Gran % (Auto) 0.800, Neut % (Auto) 72.9 H, Lymph % (Auto) 18.0 L, [place] % (Auto) 6.1, Eos % (Auto) 1.8, Baso % (Auto) 0.4, Absolute Neuts (auto) 11.6 H, Absolute Lymphs (auto) 2.85, Nucleated RBC % 0, PT 13.6, INR 1.0, APTT < 24.0 L, Sodium 137, Potassium 4.2, Chloride 102, Carbon Dioxide 18.7 L, Anion Gap 16 H, BUN 12, Creatinine 0.71, Estim Creat Clear Calc 145.42, Est GFR (MDRD) Non-Af 123, BUN/Creatinine Ratio 17.2, Glucose 125 H, Lactic Acid 1.8, Calcium 9.0, Total Bilirubin 0.22, AST 34 H, ALT 26, Alkaline Phosphatase 98, Troponin T High Sens 16 H, Total Protein 7.2, Albumin 2.9 L, Globulin 4.3 H, Albumin/Globulin Ratio 0.7 L 02/02/25 17:58: Urine Color Yellow, Urine Clarity Sl. Cloudy, Urine pH 6.0, Ur Specific [place] 1.020, Urine Protein 100 H, Urine Glucose (UA) Normal, Urine Ketones Negative, Urine Occult Blood 150 H, Urine Nitrite Positive H, Urine Bilirubin Negative, Urine Urobilinogen 1 H, Ur Leukocyte Esterase 500 H, Urine RBC 50-100 SEEN, Urine WBC 50-100 SEEN, Ur Squamous Epith Cells 5-10 SEEN, Amorphous Sediment 2+ URATE, Urine Bacteria 2+, Urine Mucus 0 SEEN 02/02/25 23:26: Troponin T Hi Sens 2 Hr 18 H, Troponin T Hi Sens 2Hr Delta 2 02/03/25 05:53: WBC 13.7 H, RBC 3.17 L, Hgb 7.8 L, Hct 25.0 L, MCV 78.9 L, MCH 24.6 L, MCHC 31.2 L, RDW Std Deviation 47.8 H, RDW Coeff of Anurag 16.5 H, Plt Count 594 H, MPV 8.8, Immature Gran % (Auto) 0.600, Neut % (Auto) 64.9, Lymph % (Auto) 25.2, [place] % (Auto) 6.3, Eos % (Auto) 2.6, Baso % (Auto) 0.4, Absolute Neuts (auto) 8.9 H, Absolute Lymphs (auto) 3.45, Nucleated RBC % 0, Sodium 139, Potassium 4.4, Chloride 108, Carbon Dioxide 20.2 L, Anion Gap 11, BUN 13, Creatinine 0.61 L, Estim Creat Clear Calc 174.84, Est GFR (MDRD) Non-Af 129, BUN/Creatinine Ratio 21.2 H, Glucose 100 H, Calcium 8.2, Magnesium 1.8, Total Bilirubin 0.19, AST 21, ALT 20, Alkaline Phosphatase 72, Total Protein 5.9, Albumin 2.5 L, Globulin 3.4, Albumin/Globulin Ratio 0.7 L Micro: Microbiology 02/02/25 17:09 Mucosa - Nose SARS-CoV-2, Influenza & RSV (PCR) - Final Imaging Radiology Impression Chest X-Ray 02/02/25 17:45 IMPRESSION: No focal consolidation. Reading [facility]
[2025-02-03 11:30] LABS: M R Staph aureus DNA By PCR Negative (Negative); Probe Check PASS; Specimen Processing Control PASS; Staph aureus DNA By PCR NEGATIVE (Negative)
[2025-02-03] MEDS: Methenamine Hippurate 1 GM Tablet PO ×2 (11:34→23:46)
[2025-02-03] MEDS: Aspirin E.C. 81 MG Tablet PO (11:35)
[2025-02-03] MEDS: Escitalopram Oxalate 20 MG Tablet PO (11:35)
[2025-02-03] MEDS: Enoxaparin 40 MG/0.4 ML Syringe SC (11:35)
[2025-02-03] MEDS: Menthol/Lanolin/Calamine/Znox 113 GM Tube 1 APPLIC TOPICAL (11:35)
[2025-02-03] MEDS: Baclofen 10 MG Tablet 40 MG PO ×2 (11:35→23:46)
--- NOTE | 2025-02-03 11:49 | CON.PCM_ITS ---
Assessment & Plan Assessment/Plan (1) Paraplegia, complete: (2) UTI (urinary tract infection): (3) Neurogenic bladder: (4) Single kidney: (5) Urinary retention: (6) Catheter-associated urinary tract infection: PLAN: Plan Continue routine suprapubic tube care Continue antibiotic coverage Recommend wound team evaluation of the suprapubic tube insertion site with local management If there is concern for significant leakage of urine through the urethra, it would be helpful for nursing to quantify how much or how many diapers she is filling HPI Consult Data Date of Consult: 02/03/25 HPI Narrative Reason for Consultation: Change of suprapubic tube HPI Narrative: KIERRA NARANJO, is a 24 F who is admitted to the hospital with fever, and tachycardia at home. She denies nausea, vomiting and does not have pain. She has had both issues with urinary tract infections as well as chronic sacral ulcerations which are being managed currently with a wound VAC. She has recently had a skin graft that is failing and she reports they are discussing a flap procedure. She has been having her suprapubic tube changed monthly with home nursing. She reports there has been no issues with draining and she cannot recall the last time she was treated for a urinary tract infection. She has also had issues with leakage from her urethra but I am having difficulty telling how much urine she is actually leaking as her catheter bag is full at this time. She reports that she is having much less urethral leakage of urine than she has previously but is having a hard time quantifying this for me. She was due for her routine suprapubic tube changed yesterday. [facility] Medical History (Updated 02/03/25 @ 12:[address] Fernanda Rodriguez MD) Neurogenic bladder Urinary retention Single kidney Postoperative hypotension Anxiety Uses wheelchair Anemia Leukocytosis Thrombocytosis Microcytic anemia Stage IV pressure ulcer of sacral region Complication of indwelling urinary catheter Quadriplegia Purple urine bag syndrome Acute osteomyelitis of sacrum Depression Seizures Indwelling urethral catheter present Former smoker Ureteral calculus Autonomic dysreflexia Paraplegic spinal paralysis Urinary tract infection Neck fracture Double uterus Home Medications ?Medication ?Instructions ?Recorded ?Last Taken ?Type aspirin 81 mg tablet,delayed 81 mg PO DAILY heart heal th 07/17/21 02/02/25 History release baclofen 20 mg tablet 40 mg PO BID muscle spasms 0 07/17/21 02/02/25 History cholecalciferol (vitamin D3) 25 25 mcg PO DAILY supple ment 07/17/21 02/02/25 History mcg (1,000 unit) capsule (Vitamin D3) docusate sodium 100 mg capsule 100 mg PO TID PRN stool softener 07/17/21 10/27/22 08:00 History escitalopram oxalate 20 mg tablet 20 mg PO DAILY depre ssion 07/17/21 02/02/25 History nitroglycerin 2 % transdermal 1 inch transdermal PRN P RN 07/17/21 Unknown History ointment autonomic dysreflexia methenamine hippurate 1 gram 1 g PO Q12H UTI preventio n 09/12/22 02/02/25 History tablet (Hiprex) ondansetron 4 mg disintegrating 8 mg (2 x 4 mg) PO Q8H PRN PRN 08/23/23 Unknown Rx tablet Nausea #20 tabs oxybutynin chloride 5 mg 5 mg PO DAILY overactive roshan dder 10/11/23 02/02/25 History tablet,extended release 24 hr acetic acid 0.25 % irrigation 1,000 ml irrigation KANA Y wounds 10/25/24 Unknown Rx solution #6,000 mL Allergy/AdvReac Type Severity Reaction Status Date / Time vancomycin Allergy Severe Other Verified 02/02/25 17:45 Family History other Surgical History History of tracheostomy History of urostomy History of cystoscopy History of colectomy History of urethral stent S/P cervical spinal fusion H/O thumb surgery Social History household members: family Smoking Status: Former smoker alcohol intake: never substance use type: does not use ROS Constitutional Constitutional: Reports chills, fatigue and fever(s) Eyes Eyes: Reports systems reviewed and no addt'l complaints, except as documented ENT HEENT: Reports systems reviewed and no addt'l complaints, except as documented Cardiovascular Cardiovascular: Denies abdominal pain or chest pain Respiratory/Chest Respiratory/Chest: Denies dyspnea Gastrointestinal Gastrointestinal: Denies abdominal pain, diarrhea, nausea or vomiting Genitourinary Genitourinary: Reports urinary incontinence; Denies abdominal discomfort or difficulty urinating Musculoskeletal Musculoskeletal: Reports other Details: Paraplegic Integumentary Integumentary: Reports wounds and other Details: Wound VAC in place Neurologic Neurologic: Reports numbness and weakness Psychiatric Psychiatric: Reports systems reviewed and no addt'l complaints, except as documented Endocrine Endocrinology: Reports systems reviewed and no addt'l complaints, except as documented Hematologic/Lymphatic Hematologic/Lymphatic: Reports systems reviewed and no addt'l complaints, except as documented Allergic/Immunologic Allergic/Immunologic: Reports systems reviewed and no addt'l complaints, except as documented Physical Exam Const alert, oriented x3 and no apparent distress Constitutional Narrative: She is sitting up in bed just finished her meal. She reports she is hot and feels like she will pass out without her fan continuously blowing on her face. General Appearance: cooperative Nutritional Appearance: overweight HEENT normocephalic, head/scalp atraumatic, hearing grossly normal bilaterally, external nose normal and moist oral mucous membranes Eyes General Eye: normal appearance of both eyes Neck General: normal visual inspection and trachea midline Lymph Lymphatic: no lymphedema noted Chest inspection of chest normal Chest: symmetrical chest wall rise Resp normal respiratory effort, no retractions and no use of accessory muscles Cardio Rate: tachycardic GI soft to palpation GI Narrative: Stool present in her ostomy bag Narrative: Suprapubic tube site has been starting to erode around the insertion site circumferentially. Due to her obesity, the insertion site is in an unfortunate position with the fold of her panniculus. Using sterile technique, her indwelling catheter was removed and a new 18 [place]riot latex free catheter was inserted, the balloon was inflated and it was irrigated to ensure drainage. The patient tolerated the procedure. Extremity General Extremity: atrophy Skin no rashes or lesions noted, no jaundice, no petechiae and no mottling Neuro oriented x3 and CN's II-XII intact bilaterally Psych mental status grossly normal Lab / Micro Data 02/03/25 05:53 02/03/25 05:53 Labs: Laboratory Results - last 24 hr 02/02/25 17:29: WBC 15.9 H, RBC 4.04 L, Hgb 9.7 L, Hct 31.6 L, MCV 78.2 L, MCH 24.0 L, MCHC 30.7 L, RDW Std Deviation 47.2 H, RDW Coeff of Anurag 16.5 H, Plt Count 692 H, MPV 8.8, Immature Gran % (Auto) 0.800, Neut % (Auto) 72.9 H, Lymph % (Auto) 18.0 L, [place] % (Auto) 6.1, Eos % (Auto) 1.8, Baso % (Auto) 0.4, A bsolute Neuts (auto) 11.6 H, Absolute Lymphs (auto) 2.85, Nucleated RBC % 0, PT 13.6, INR 1.0, APTT < 24.0 L, Sodium 137, Potassium 4.2, Chloride 102, Carbon Dioxide 18.7 L, Anion Gap 16 H, BUN 12, Creatinine 0.71, Estim Creat Clear Calc 145.42, Est GFR (MDRD) Non-Af 123, BUN/Creatinine Ratio 17.2, Glucose 125 H, Lactic Acid 1.8, Calcium 9.0, Total Bilirubin 0.22, AST 34 H, ALT 26, Alkaline Phosphatase 98, Troponin T High Sens 16 H, Total Protein 7.2, Albumin 2.9 L, G lobulin 4.3 H, Albumin/Globulin Ratio 0.7 L 02/02/25 17:58: Urine Color Yellow, Urine Clarity Sl. Cloudy, Urine pH 6.0, Ur Specific [place] 1.020, Urine Protein 100 H, Urine Glucose (UA) Normal, Urine Ketones Negative, Urine Occult Blood 150 H, Urine Nitrite Positive H, Urine Bilirubin Negative, Urine Urobilinogen 1 H, Ur Leukocyte Esterase 500 H, Urine RBC 50-100 SEEN, Urine WBC 50-100 SEEN, Ur Squamous Epith Cells 5-10 SEEN, Amorphous Sediment 2+ URATE, Urine Bacteria 2+, Urine Mucus 0 SEEN 02/02/25 23:26: Troponin T Hi Sens 2 Hr 18 H, Troponin T Hi Sens 2Hr Delta 2 02/03/25 05:53: WBC 13.7 H, RBC 3.17 L, Hgb 7.8 L, Hct 25.0 L, MCV 78.9 L, MCH 24.6 L, MCHC 31.2 L, RDW Std Deviation 47.8 H, RDW Coeff of Anurag 16.5 H, Plt Count 594 H, MPV 8.8, Immature Gran % (Auto) 0.600, Neut % (Auto) 64.9, Lymph % (Auto) 25.2, [place] % (Auto) 6.3, Eos % (Auto) 2.6, Baso % (Auto) 0.4, Absolute Neuts (auto) 8.9 H, Absolute Lymphs (auto) 3.45, Nucleated RBC % 0, Sodium 139, Potassium 4.4, Chloride 108, Carbon Dioxide 20.2 L, Anion Gap 11, BUN 13, C reatinine 0.61 L, Estim Creat Clear Calc 174.84, Est GFR (MDRD) Non-Af 129, B UN/Creatinine Ratio 21.2 H, Glucose 100 H, Calcium 8.2, Magnesium 1.8, Total Bilirubin 0.19, AST 21, ALT 20, Alkaline Phosphatase 72, Total Protein 5.9, A lbumin 2.5 L, Globulin 3.4, Albumin/Globulin Ratio 0.7 L 02/03/25 08:55: S.aureus Protein A PCR NEGATIVE, MRSA (PCR) Negative Micro: Microbiology 02/02/25 17:09 Mucosa - Nose SARS-CoV-2, Influenza & RSV (PCR) - Final Imaging Radiology Impression Chest X-Ray 02/02/25 17:45 IMPRESSION: No focal consolidation. Reading [facility]
--- NOTE | 2025-02-03 14:51 | WOUNDNOTE ---
wound photo: left heel
--- NOTE | 2025-02-03 14:52 | WOUNDNOTE ---
wound photo: right heel
--- NOTE | 2025-02-03 14:53 | WOUNDNOTE ---
wound photo: right lateral ankle
--- NOTE | 2025-02-03 14:54 | WOUNDNOTE ---
wound photo: abdomen (suprapubic site)
--- NOTE | 2025-02-03 15:02 | CASEMGMT ---
CONRAD TILLMAN Chart review: patient was admitted 01/12-01/13/25 s/p excision of sacral wound in preparation for skin grafting. See assessment from 01/13/25. Patient was discharged to home with [facility], family support, and follow-up plans in place. Patient returned to [facility] ED on 02/02/25 for fever and was admitted for catheter associated UTI. ID is consulted, urine cultures pending, awaiting recommendations. CONRAD TILLMAN in to discuss discharge planning. Patient wishes to return home with resumption of [facility]. Patient declined further needs or concerns. Discharge fiscal assistant sent resumption referral to [facility]. CM will continue to follow this patient and plan for a safe discharge.
[2025-02-04] VITALS (7 sets, daily range): BP systolic 93–147; BP diastolic 60–94; PULSE 91–110; RESP 16–20; TEMP 36.3–36.6; O2SAT 98–100; BMI 47.2
[2025-02-04] MEDS: Cefepime HCl 2 GM in 0.9% Normal Saline (100mL MB+) 100 ML IV ×3 (05:15→22:54)
[2025-02-04] MEDS: 0.9% Saline Lock 10 ML Syringe IV (05:16)
[2025-02-04] MEDS: Aspirin E.C. 81 MG Tablet PO (08:29)
[2025-02-04] MEDS: Methenamine Hippurate 1 GM Tablet PO ×2 (08:29→22:58)
[2025-02-04] MEDS: Enoxaparin 40 MG/0.4 ML Syringe SC (08:30)
[2025-02-04] MEDS: Escitalopram Oxalate 20 MG Tablet PO (08:30)
[2025-02-04] MEDS: Baclofen 10 MG Tablet 40 MG PO ×2 (08:30→22:58)
--- NOTE | 2025-02-04 08:32 | WOUNDNOTE ---
In to see patient this am. wound VAC dressing intact with good seal noted at 125mmHg low continuous suction. cleaned around suprapubic catheter with soap and water. pat dry. applied Triad to skin for protection and placed a split gauze around the tubing. pt tolerated well. will monitor. heel boots in place. pt on low air loss mattress. will monitor.
--- NOTE | 2025-02-04 08:55 | PN.HOSP_ITS ---
Reason for Visit Reason for Visit: Diagnoses Paraplegia, complete (02/02/25) Pressure ulcer of sacral region, stage 3 (02/02/25) Neuromuscular dysfunction of bladder, unspecified (02/02/25) Urinary tract infection, site not specified (02/02/25) Retention of urine, unspecified (02/02/25) Infection and inflammatory reaction due to indwelling urethral catheter, initial encounter (02/02/25) Acquired absence of kidney (02/02/25) Subjective Subjective Patient wound cultures positive for gram-positive organisms urine cultures and blood culture still pending Objective Data Objective Data Vital Signs: Vital Signs Temp Pulse Resp BP Pulse Ox O2 Del Method 97.6 F L 101 H 16 93/68 100 Room Air 02/04/25 08:23 02/04/25 08:35 02/04/25 08:23 02/04/25 08:23 02/04/25 08:23 02/04/25 08:35 Oxygen Delivery Method Room Air Weight: 128.6 kg Body Mass Index (BMI) 47.2 Intake & Output: Intake and Output for Last 24 Hours 02/02/25 02/03/25 02/04/25 23:59 23:59 23:59 Intake Total 1050 / 1050 3400.00 / 3400.00 200 / 200 Output Total 1650 / 1650 1100 / 1100 Balance 1050 / 1050 1750.00 / 1750.00 -900 / -900 Lab / Micro Data 02/04/25 09:15 02/03/25 05:53 Labs: Laboratory Results - last 24 hr 02/03/25 08:55: S.aureus Protein A PCR NEGATIVE, MRSA (PCR) Negative Micro: Microbiology 02/03/25 08:55 Wound - Sacral Wound Culture - Preliminary Gram positive organism 02/02/25 17:09 Mucosa - Nose SARS-CoV-2, Influenza & RSV (PCR) - Final Physical Exam Narrative GENERAL: cooperative HEENT: Atraumatic; normocephalic EYES; Anicteric, Normal Conjunctiva NECK; supple, normal thyroid, RESPIRATORY: Diminished to auscultation CARDIOVASCULAR: Regular S1 S2, GI: soft, normoactive bowel sounds, : No Renal angle tenderness; EXTREMITIES: No edema, no clubbing, MUSCULOSKELETAL: no muscle wasting NEURO: Awake; no lateralizing signs. SKIN: Sacral pressure decubitus with wound VAC in place PSYCH; Flat affect Assessment & Plan Assessment/Plan (1) UTI (urinary tract infection): PLAN: Plan Patient is a 24-year-old lady with history of neck fracture with cervical spinal fusion with incomplete quadriplegia with a chronic indwelling Ma catheter secondary to neurogenic bladder who was sent to the ED by her home health care nurse with complaints of fever and tachycardia. An assessment of acute complicated UTI was made admitted to monitored bed for further management 1. Acute complicated UTI secondary to chronic indwelling Ma catheter ? Patient was resuscitated with IV fluids urine culture sent started on broad- spectrum antibiotic therapy with plans to adjust antibiotic therapy based on culture result ? 02/04/2025 patient remains on broad-spectrum antibiotic therapy urine culture still pending 2. Anemia ? Secondary to chronic disorder monitoring H&H and transfuse if patient becomes symptomatic or hemoglobin falls below 7 ? 02/04/2025; patient H&H remained stable 3. History of neck fracture -with cervical spinal fusion with incomplete quadriplegia 4. Indeterminate troponin ? Secondary to demand ischemia from above patient being monitored on continuous telemetry 5.. Chronic sacral wounds ? Patient was seen in consultation by wound care nurse as well as plastic surgery Dr. Gaona, recommended current wound VAC as well as protein supplementation with plans for consideration for possible reconstruction as outpatient ? 02/04/2025 wound cultures came back positive for gram-positive organisms 6. Class II obesity with BMI of 39 ? Complicating care weight loss advised 7. Depression with anxiety ? Patient is on escitalopram continue 8. Seizure disorder ? Patient was previously on antiseizure medication per patient she has been taking off 9. DVT prophylaxis ? Subcu enoxaparin with low threshold for discontinuation given patient low hemoglobin level Time spent in the patient's overall evaluation,decision-making process, review of diagnostic data, adjustment of management, discussion with other providers, nursing nursing and ancillary staff involved in patient's care documentation, 36 minutes Charges/Coding Visit Charges Inpatient E&M: 62766 Subs Hosp L2
[2025-02-04 09:24] LABS: Hematocrit 27.5 % (37-47); Hemoglobin 8.3 g/dL (12.0-15.0); Mean Corp Hgb Conc 30.2 g/dL (32-36); Mean Corpuscular Hgb 23.8 pg (27.0-32.0); Mean Corpuscular Volume 78.8 fL (81-99); Mean Platelet Vol. 8.6 fl (6.2-12.0); Platelet Count 593 K/mm3 (150-450); RBC Distribution Width CV 16.3 % (11.6-14.6); RBC Distribution Width SD 46.9 fl (35.1-43.9); Red Blood Count 3.49 M/mm3 (4.2-5.4); White Blood Count 8.3 K/mm3 (4.4-11.0)
[2025-02-04 10:26] LABS: Phosphorus 3.5 mg/dL (2.7-4.5)
--- NOTE | 2025-02-04 10:39 | PCM.PN.ID ---
Physical Exam Narrative Feeling about the same, no fever, no events overnight Const alert and no apparent distress Resp normal air movement and clear to auscultation bilaterally Cardio regular rate and regular rhythm GI soft to palpation, non-tender and non-distended Skin Skin Narrative: reviewed wound photos ID ID: Route of nutrition/ use of supplements: [] Nutritional Intake: [] IV Site: [] Ma Catheter: [] Assessment & Plan Assessment/Plan (1) UTI (urinary tract infection): PLAN: cxs pending, seen by Dr. Gaona, sacral wound has worsened since skin grafting 01/12/25, cont cefepime. Wound cx so far with [facility]. Will follow
[2025-02-04] MEDS: Ensure Plus High Protein 120 ML LIQUID PO ×4 (11:10→22:53)
[2025-02-04 16:12] LABS: AST(SGOT) 14 U/L (<=31); Alanine Aminotransfer ALT/SGPT 19 U/L (<=34); Albumin, Serum 2.8 g/dL (3.5-5.0); Alkaline Phosphatase 71 U/L (35-104); Anion Gap 12 (5-15); BUN 11 mg/dL (4-19); BUN/Creat Ratio 20.1 RATIO (10-20); Carbon Dioxide 21.5 mmol/L (21.0-32.0); Chloride 108 mmol/L (98-108); Creatinine, Serum 0.57 mg/dL (0.70-1.20); EST Glomerular Filtration Rate 132 (>60); Globulin 2.9 g/dL (2.2-4.2); Glucose 90 mg/dL (70-99); Magnesium 2.1 mg/dL (1.5-2.2); Potassium 3.8 mmol/L (3.3-5.1); Protein, Total 5.7 g/dL (5.9-8.4); Sodium Level 142 mmol/L (133-145); Total Bilirubin 0.17 mg/dL (0.00-1.30)
[2025-02-04] MEDS: Menthol/Lanolin/Calamine/Znox 113 GM Tube 1 APPLIC TOPICAL (18:17)
[2025-02-05 02:00] VITALS: BP 151/92; PULSE 103; RESP 16; TEMP 36.6; O2SAT 100
[2025-02-05 02:30] VITALS: BP 151/92; PULSE 103; RESP 16; TEMP 36.6; O2SAT 100
[2025-02-05] MEDS: Cefepime HCl 2 GM in 0.9% Normal Saline (100mL MB+) 100 ML IV ×3 (06:19→21:59)
[2025-02-05 08:00] VITALS: BP 103/71; PULSE 91; RESP 17; TEMP 36.5; O2SAT 100
--- NOTE | 2025-02-05 08:10 | PCM.PN.HOSP ---
Reason for Visit Reason for Visit: Diagnoses Paraplegia, complete (02/02/25) Pressure ulcer of sacral region, stage 3 (02/02/25) Neuromuscular dysfunction of bladder, unspecified (02/02/25) Urinary tract infection, site not specified (02/02/25) Retention of urine, unspecified (02/02/25) Infection and inflammatory reaction due to indwelling urethral catheter, initial encounter (02/02/25) Acquired absence of kidney (02/02/25) Subjective Subjective Patient seen urine cultures growing multiple organisms final identification and sensitivities pending Organism 1 GNR lactose field supervisor seed production [place] Count 50,000-80,000 CFU/mL Organism 2 Gram negative arlen [place] Count 25,000-50,000 CFU/mL Organism 3 GNR Poss Pseudomonas sp [place] Count 50,000-80,000 CFU/mL Objective Data Objective Data Vital Signs: Vital Signs Temp Pulse Resp BP Pulse Ox O2 Del Method 97.8 F 103 H 16 151/92 H 100 Room Air 02/05/25 02:30 02/05/25 02:30 02/05/25 02:30 02/05/25 02:30 02/05/25 02:30 02/05/25 02:30 Oxygen Delivery Method Room Air Weight: 128.6 kg Body Mass Index (BMI) 47.2 Intake & Output: Intake and Output for Last 24 Hours 02/03/25 02/04/25 02/05/25 23:59 23:59 23:59 Intake Total 3400.00 / 3400.00 400 / 840 980 / 980 Output Total 1650 / 1650 1100 / 1750 1250 / 1250 Balance 1750.00 / 1750.00 -700 / -910 -270 / -270 Lab / Micro Data 02/05/25 08:26 02/05/25 08:26 Labs: Laboratory Results - last 24 hr 02/04/25 09:15: WBC 8.3, RBC 3.49 L, Hgb 8.3 L, Hct 27.5 L, MCV 78.8 L, MCH 23.8 L, MCHC 30.2 L, RDW Std Deviation 46.9 H, RDW Coeff of Anurag 16.3 H, Plt Count 593 H, MPV 8.6, Sodium 142, Potassium 3.8, Chloride 108, Carbon Dioxide 21.5, Anion Gap 12, BUN 11, Creatinine 0.57 L, Estim Creat Clear Calc 209.30, Est GFR (MDRD) Non-Af 132, BUN/Creatinine Ratio 20.1 H, Glucose 90, Calcium 9.0, Phosphorus 3.5, Magnesium 2.1, Total Bilirubin 0.17, AST 14, ALT 19, Alkaline Phosphatase 71, Total Protein 5.7 L, Albumin 2.8 L, Globulin 2.9, Albumin/Globulin Ratio 1.0 Micro: Microbiology 02/02/25 17:58 Urine, Catheterized Urine Culture - Preliminary GNR lactose field supervisor seed production Gram negative arlen GNR Poss Pseudomonas sp 02/03/25 08:55 Wound - Sacral Gram Stain - Final 02/03/25 08:55 Wound - Sacral Wound Culture - Preliminary Gram positive organism 02/02/25 17:09 Mucosa - Nose SARS-CoV-2, Influenza & RSV (PCR) - Final Physical Exam Narrative GENERAL: cooperative HEENT: Atraumatic; normocephalic EYES; Anicteric, Normal Conjunctiva NECK; supple, normal thyroid, RESPIRATORY: Diminished to auscultation CARDIOVASCULAR: Regular S1 S2, GI: soft, normoactive bowel sounds, : No Renal angle tenderness; EXTREMITIES: No edema, no clubbing, MUSCULOSKELETAL: no muscle wasting NEURO: Awake; no lateralizing signs. SKIN: Sacral pressure decubitus with wound VAC in place PSYCH; Flat affect Assessment & Plan Assessment/Plan (1) UTI (urinary tract infection): PLAN: Plan Patient is a 24-year-old lady with history of neck fracture with cervical spinal fusion with incomplete quadriplegia with a chronic indwelling Ma catheter secondary to neurogenic bladder who was sent to the ED by her home health care nurse with complaints of fever and tachycardia. An assessment of acute complicated UTI was made admitted to monitored bed for further management 1. Acute complicated UTI secondary to chronic indwelling Ma catheter ? Patient was resuscitated with IV fluids urine culture sent started on broad-spectrum antibiotic therapy with plans to adjust antibiotic therapy based on culture result ? 02/04/2025 patient remains on broad-spectrum antibiotic therapy urine culture still pending /07/2025; growing multiple organisms final identification and sensitivities pending Organism 1 GNR lactose field supervisor seed production ; [place] Count 50,000-80,000 CFU/mL ; Organism 2 Gram negative arlen ; [place] Count 25,000-50,000 CFU/mL Organism 3 GNR Poss Pseudomonas sp; [place] Count 50,000-80,000 CFU/mL 2. Anemia ? Secondary to chronic disorder monitoring H&H and transfuse if patient becomes symptomatic or hemoglobin falls below 7 ? 02/04/2025; patient H&H remained stable 3. History of neck fracture -with cervical spinal fusion with incomplete quadriplegia 4. Indeterminate troponin ? Secondary to demand ischemia from above patient being monitored on continuous telemetry 5.. Chronic sacral wounds ? Patient was seen in consultation by wound care nurse as well as plastic surgery Dr. Gaona, recommended current wound VAC as well as protein supplementation with plans for consideration for possible reconstruction as outpatient ? 02/04/2025 wound cultures came back positive for gram-positive organisms 6. Class II obesity with BMI of 39 ? Complicating care weight loss advised 7. Depression with anxiety ? Patient is on escitalopram continue 8. Seizure disorder ? Patient was previously on antiseizure medication per patient she has been taking off 9. DVT prophylaxis ? Subcu enoxaparin with low threshold for discontinuation given patient low hemoglobin level Time spent in the patient's overall evaluation,decision-making process, review of diagnostic data, adjustment of management, discussion with other providers, nursing nursing and ancillary staff involved in patient's care documentation, 35 minutes Charges/Coding Visit Charges Inpatient E&M: 14520 Subs Hosp L2
[2025-02-05] MEDS: Aspirin E.C. 81 MG Tablet PO (08:32)
[2025-02-05] MEDS: Baclofen 10 MG Tablet 40 MG PO ×2 (08:32→21:59)
[2025-02-05] MEDS: Escitalopram Oxalate 20 MG Tablet PO (08:32)
[2025-02-05] MEDS: Methenamine Hippurate 1 GM Tablet PO ×2 (08:32→21:59)
[2025-02-05] MEDS: Ensure Plus High Protein 120 ML LIQUID PO ×4 (08:33→21:59)
[2025-02-05] MEDS: Menthol/Lanolin/Calamine/Znox 113 GM Tube 1 APPLIC TOPICAL ×4 (08:33→22:02)
[2025-02-05] MEDS: Enoxaparin 40 MG/0.4 ML Syringe SC (08:33)
[2025-02-05 08:36] LABS: Absolute Lymphocyte Count 1.82 X10^3/uL (0.83-4.51); Absolute Neutrophil Count 5.8 X10^3/uL (2.0-7.7); Basophil# 0.04 X10^3/uL; Basophil% 0.5 % (0-1); Eosinophil# 0.32 X10^3/uL; Eosinophils% 3.8 % (0-5); Hematocrit 26.4 % (37-47); Hemoglobin 8.1 g/dL (12.0-15.0); Lymphocyte # 1.82 X10^3/ul (0.83-4.51); Lymphocyte % 21.6 % (19-41); Mean Corp Hgb Conc 30.7 g/dL (32-36); Mean Corpuscular Hgb 24.3 pg (27.0-32.0); Mean Platelet Vol. 8.7 fl (6.2-12.0); Monocyte% 4.7 % (0-10); NRBC Flagged by Analyzer 0 % (0-5); Neutrophil # 5.81 X10^3/uL (2.7-7.7); Neutrophil % 68.9 % (47-70); Platelet Count 563 K/mm3 (150-450); RBC Distribution Width CV 16.3 % (11.6-14.6); RBC Distribution Width SD 46.8 fl (35.1-43.9); Red Blood Count 3.34 M/mm3 (4.2-5.4); White Blood Count 8.4 K/mm3 (4.4-11.0)
[2025-02-05 09:53] LABS: Anion Gap 13 (5-15); BUN 14 mg/dL (4-19); BUN/Creat Ratio 25.1 RATIO (10-20); Calcium,Total 8.9 mg/dL (7.6-11.0); Chloride 109 mmol/L (98-108); Creatinine, Serum 0.57 mg/dL (0.70-1.20); EST Glomerular Filtration Rate 132 (>60); Glucose 99 mg/dL (70-99); Potassium 3.8 mmol/L (3.3-5.1); Sodium Level 143 mmol/L (133-145)
[2025-02-05 14:00] VITALS: BP 124/72; PULSE 87; RESP 17; TEMP 36.4; O2SAT 99
[2025-02-05 21:50] VITALS: BP 123/74; PULSE 88; RESP 18; TEMP 36.6; O2SAT 100
[2025-02-06 03:50] VITALS: BP 123/83; PULSE 96; RESP 18; TEMP 36.6; O2SAT 99
[2025-02-06] MEDS: Cefepime HCl 2 GM in 0.9% Normal Saline (100mL MB+) 100 ML IV ×3 (05:22→21:55)
[2025-02-06 05:37] VITALS: BMI 47.2
--- NOTE | 2025-02-06 07:42 | PN.HOSP_ITS ---
Reason for Visit Reason for Visit: Diagnoses Paraplegia, complete (02/02/25) Pressure ulcer of sacral region, stage 3 (02/02/25) Neuromuscular dysfunction of bladder, unspecified (02/02/25) Urinary tract infection, site not specified (02/02/25) Retention of urine, unspecified (02/02/25) Infection and inflammatory reaction due to indwelling urethral catheter, initial encounter (02/02/25) Acquired absence of kidney (02/02/25) Subjective Subjective Patient seen urine cultures came back positive for Enterobacter species, Klebsiella as well as Pseudomonas patient remains on appropriate antibiotic therapy with cefepime. Consult placed to ID Objective Data Objective Data Vital Signs: Vital Signs Temp Pulse Resp BP Pulse Ox O2 Del Method 97.8 F 96 18 123/83 H 99 Room Air 02/06/25 03:50 02/06/25 03:50 02/06/25 03:50 02/06/25 03:50 02/06/25 03:50 02/06/25 03:50 Oxygen Delivery Method Room Air Weight: 128.9 kg Body Mass Index (BMI) 47.2 Intake & Output: Intake and Output for Last 24 Hours 02/04/25 02/05/25 02/07/25 23:59 23:59 00:59 Intake Total 400 / 840 1900 / 1900 100 / 100 Output Total 1100 / 1750 2350 / 3050 700 / 700 Balance -700 / -910 -450 / -1150 -600 / -600 Lab / Micro Data 02/06/25 07:17 02/06/25 07:17 Labs: Laboratory Results - last 24 hr 02/05/25 08:26: WBC 8.4, RBC 3.34 L, Hgb 8.1 L, Hct 26.4 L, MCV 79.0 L, MCH 24.3 L, MCHC 30.7 L, RDW Std Deviation 46.8 H, RDW Coeff of Anurag 16.3 H, Plt Count 563 H, MPV 8.7, Immature Gran % (Auto) 0.500, Neut % (Auto) 68.9, Lymph % (Auto) 21.6, [place] % (Auto) 4.7, Eos % (Auto) 3.8, Baso % (Auto) 0.5, Absolute Neuts (auto) 5.8, Absolute Lymphs (auto) 1.82, Nucleated RBC % 0, Sodium 143, Potassium 3.8, Chloride 109 H, Carbon Dioxide 21.0, Anion Gap 13, BUN 14, C reatinine 0.57 L, Estim Creat Clear Calc 209.30, Est GFR (MDRD) Non-Af 132, B UN/Creatinine Ratio 25.1 H, Glucose 99, Calcium 8.9 Micro: Microbiology 02/02/25 18:31 Blood Culture (Wb) - Chest Blood Culture - Preliminary No growth in 48 hours. 02/02/25 17:29 Blood Culture (Wb) - Chest Blood Culture - Preliminary No growth in 48 hours. 02/03/25 08:55 Wound - Sacral Gram Stain - Final 02/03/25 08:55 Wound - Sacral Wound Culture - Preliminary Gram positive arlen Gram negative arlen 02/02/25 17:58 Urine, Catheterized Urine Culture - Final Enterobacter cloacae complex Klebsiella pneumoniae sp pneum Pseudomonas aeruginosa 02/02/25 17:09 Mucosa - Nose SARS-CoV-2, Influenza & RSV (PCR) - Final Physical Exam Narrative GENERAL: cooperative HEENT: Atraumatic; normocephalic EYES; Anicteric, Normal Conjunctiva NECK; supple, normal thyroid, RESPIRATORY: Diminished to auscultation CARDIOVASCULAR: Regular S1 S2, GI: soft, normoactive bowel sounds, : No Renal angle tenderness; EXTREMITIES: No edema, no clubbing, MUSCULOSKELETAL: no muscle wasting NEURO: Awake; no lateralizing signs. SKIN: Sacral pressure decubitus with wound VAC in place PSYCH; Flat affect Assessment & Plan Assessment/Plan (1) UTI (urinary tract infection): PLAN: Plan Patient is a 24-year-old lady with history of neck fracture with cervical spinal fusion with incomplete quadriplegia with a chronic indwelling Ma catheter secondary to neurogenic bladder who was sent to the ED by her home health care nurse with complaints of fever and tachycardia. An assessment of acute complicated UTI was made admitted to monitored bed for further management 1. Acute complicated UTI secondary to chronic indwelling Ma catheter ? Patient was resuscitated with IV fluids urine culture sent started on broad- spectrum antibiotic therapy with plans to adjust antibiotic therapy based on culture result ? 02/04/2025 patient remains on broad-spectrum antibiotic therapy urine culture still pending ; growing multiple organisms final identification and sensitivities pending Organism 1 GNR lactose employment program representative ; [place] Count 50,000- 80,000 CFU/mL ; Organism 2 Gram negative arlen ; [place] Count 25,000-50,000 CFU/mL Organism 3 GNR Poss Pseudomonas sp; [place] Count 50,000- 80,000 CFU/mL -02/06/2025;Patient seen urine cultures came back positive for Enterobacter species, Klebsiella as well as Pseudomonas patient remains on appropriate antibiotic therapy with cefepime. Consult placed to ID 2. Anemia ? Secondary to chronic disorder monitoring H&H and transfuse if patient becomes symptomatic or hemoglobin falls below 7 ? 02/04/2025; patient H&H remained stable 3. History of neck fracture -with cervical spinal fusion with incomplete quadriplegia 4. Indeterminate troponin ? Secondary to demand ischemia from above patient being monitored on continuous telemetry 5.. Chronic sacral wounds ? Patient was seen in consultation by wound care nurse as well as plastic surgery Dr. Gaona, recommended current wound VAC as well as protein supplementation with plans for consideration for possible reconstruction as outpatient ? 02/04/2025 wound cultures came back positive for gram-positive organisms 6. Class II obesity with BMI of 39 ? Complicating care weight loss advised 7. Depression with anxiety ? Patient is on escitalopram continue 8. Seizure disorder ? Patient was previously on antiseizure medication per patient she has been taking off 9. DVT prophylaxis ? Subcu enoxaparin with low threshold for discontinuation given patient low hemoglobin level Time spent in the patient's overall evaluation,decision-making process, review of diagnostic data, adjustment of management, discussion with other providers, nursing nursing and ancillary staff involved in patient's care documentation, 35 minutes Charges/Coding Visit Charges Inpatient E&M: 60081 Subs Hosp L2
[2025-02-06] MEDS: Aspirin E.C. 81 MG Tablet PO (08:14)
[2025-02-06] MEDS: Escitalopram Oxalate 20 MG Tablet PO (08:14)
[2025-02-06] MEDS: Ensure Plus High Protein 120 ML LIQUID PO ×2 (08:14→14:10)
[2025-02-06] MEDS: Baclofen 10 MG Tablet 40 MG PO ×2 (08:14→21:54)
[2025-02-06] MEDS: Enoxaparin 40 MG/0.4 ML Syringe SC (08:14)
[2025-02-06] MEDS: Methenamine Hippurate 1 GM Tablet PO ×2 (08:14→21:54)
[2025-02-06 08:20] LABS: Absolute Lymphocyte Count 1.91 X10^3/uL (0.83-4.51); Absolute Neutrophil Count 6.6 X10^3/uL (2.0-7.7); Basophil# 0.05 X10^3/uL; Basophil% 0.5 % (0-1); Eosinophils% 3.2 % (0-5); Hematocrit 26.9 % (37-47); Hemoglobin 8.3 g/dL (12.0-15.0); Lymphocyte # 1.91 X10^3/ul (0.83-4.51); Lymphocyte % 20.5 % (19-41); Mean Corp Hgb Conc 30.9 g/dL (32-36); Mean Corpuscular Hgb 24.2 pg (27.0-32.0); Mean Corpuscular Volume 78.4 fL (81-99); Mean Platelet Vol. 8.8 fl (6.2-12.0); Monocyte% 4.3 % (0-10); NRBC Flagged by Analyzer 0 % (0-5); Neutrophil # 6.61 X10^3/uL (2.7-7.7); Neutrophil % 71.1 % (47-70); Platelet Count 620 K/mm3 (150-450); RBC Distribution Width CV 16.7 % (11.6-14.6); RBC Distribution Width SD 47.7 fl (35.1-43.9); Red Blood Count 3.43 M/mm3 (4.2-5.4); White Blood Count 9.3 K/mm3 (4.4-11.0)
[2025-02-06 09:28] LABS: Anion Gap 12 (5-15); BUN 17 mg/dL (4-19); BUN/Creat Ratio 30.1 RATIO (10-20); Calcium,Total 9.3 mg/dL (7.6-11.0); Carbon Dioxide 21.5 mmol/L (21.0-32.0); Chloride 107 mmol/L (98-108); Creatinine, Serum 0.58 mg/dL (0.70-1.20); EST Glomerular Filtration Rate 131 (>60); Estimated Creatinine Clearance 205.98 ml/min (50-250); Glucose 93 mg/dL (70-99); Potassium 3.8 mmol/L (3.3-5.1); Sodium Level 141 mmol/L (133-145)
[2025-02-06 09:37] VITALS: BP 121/88; PULSE 78; RESP 18; TEMP 36.1; O2SAT 99
[2025-02-06 15:30] VITALS: BP 120/68; PULSE 77; RESP 16; TEMP 36.8; O2SAT 97
[2025-02-06 21:30] VITALS: BP 110/65; PULSE 97; RESP 16; TEMP 36; O2SAT 98
[2025-02-06] MEDS: 0.9% Saline Lock 10 ML Syringe IV (21:55)
[2025-02-07 03:30] VITALS: BP 108/61; PULSE 93; RESP 18; TEMP 36.3; O2SAT 100
[2025-02-07] MEDS: Cefepime HCl 2 GM in 0.9% Normal Saline (100mL MB+) 100 ML IV ×3 (05:20→20:49)
[2025-02-07 06:00] VITALS: BMI 47.5
[2025-02-07 06:55] LABS: Absolute Lymphocyte Count 2.17 X10^3/uL (0.83-4.51); Absolute Neutrophil Count 5.8 X10^3/uL (2.0-7.7); Basophil# 0.04 X10^3/uL; Basophil% 0.5 % (0-1); Eosinophil# 0.23 X10^3/uL; Eosinophils% 2.6 % (0-5); Hematocrit 29.8 % (37-47); Hemoglobin 9.2 g/dL (12.0-15.0); Lymphocyte # 2.17 X10^3/ul (0.83-4.51); Lymphocyte % 24.7 % (19-41); Mean Corp Hgb Conc 30.9 g/dL (32-36); Mean Corpuscular Hgb 24.3 pg (27.0-32.0); Mean Corpuscular Volume 78.6 fL (81-99); Monocyte# 0.52 X10^3/uL; Monocyte% 5.9 % (0-10); NRBC Flagged by Analyzer 0 % (0-5); Neutrophil # 5.78 X10^3/uL (2.7-7.7); Neutrophil % 65.8 % (47-70); Platelet Count 594 K/mm3 (150-450); RBC Distribution Width CV 16.8 % (11.6-14.6); RBC Distribution Width SD 47.5 fl (35.1-43.9); Red Blood Count 3.79 M/mm3 (4.2-5.4); White Blood Count 8.8 K/mm3 (4.4-11.0)
[2025-02-07 08:09] LABS: Anion Gap 12 (5-15); BUN 19 mg/dL (4-19); BUN/Creat Ratio 32.1 RATIO (10-20); Calcium,Total 9.1 mg/dL (7.6-11.0); Carbon Dioxide 21.9 mmol/L (21.0-32.0); Chloride 106 mmol/L (98-108); Creatinine, Serum 0.59 mg/dL (0.70-1.20); EST Glomerular Filtration Rate 131 (>60); Estimated Creatinine Clearance 203.06 ml/min (50-250); Glucose 96 mg/dL (70-99); Potassium 4.2 mmol/L (3.3-5.1); Sodium Level 140 mmol/L (133-145)
--- NOTE | 2025-02-07 08:15 | PCM.PN.HOSP ---
Reason for Visit Reason for Visit: Diagnoses Paraplegia, complete (02/02/25) Pressure ulcer of sacral region, stage 3 (02/02/25) Neuromuscular dysfunction of bladder, unspecified (02/02/25) Urinary tract infection, site not specified (02/02/25) Retention of urine, unspecified (02/02/25) Infection and inflammatory reaction due to indwelling urethral catheter, initial encounter (02/02/25) Acquired absence of kidney (02/02/25) Subjective Subjective Patient seen had a relatively uneventful night. Consult was placed to ID regarding patient polymicrobial urinary tract infection. Awaiting input Objective Data Objective Data Vital Signs: Vital Signs Temp Pulse Resp BP Pulse Ox O2 Del Method 97.4 F L 93 18 108/61 100 Room Air 02/07/25 03:30 02/07/25 03:30 02/07/25 03:30 02/07/25 03:30 02/07/25 03:30 02/07/25 03:30 Oxygen Delivery Method Room Air Weight: 129.5 kg Body Mass Index (BMI) 47.5 Intake & Output: Intake and Output for Last 24 Hours 02/05/25 02/07/25 02/07/25 23:59 00:59 23:59 Intake Total 1900 / 1900 1140 / 1140 100 / 100 Output Total 2350 / 3050 1851 / 1851 1400 / 1400 Balance -450 / -1150 -711 / -711 -1300 / -1300 Lab / Micro Data 02/07/25 06:13 02/07/25 06:13 Labs: Laboratory Results - last 24 hr 02/06/25 07:17: WBC 9.3, RBC 3.43 L, Hgb 8.3 L, Hct 26.9 L, MCV 78.4 L, MCH 24.2 L, MCHC 30.9 L, RDW Std Deviation 47.7 H, RDW Coeff of Anurag 16.7 H, Plt Count 620 H, MPV 8.8, Immature Gran % (Auto) 0.400, Neut % (Auto) 71.1 H, Lymph % (Auto) 20.5, [place] % (Auto) 4.3, Eos % (Auto) 3.2, Baso % (Auto) 0.5, Absolute Neuts (auto) 6.6, Absolute Lymphs (auto) 1.91, Nucleated RBC % 0, Sodium 141, Potassium 3.8, Chloride 107, Carbon Dioxide 21.5, Anion Gap 12, BUN 17, Creatinine 0.58 L, Estim Creat Clear Calc 205.98, Est GFR (MDRD) Non-Af 131, BUN/Creatinine Ratio 30.1 H, Glucose 93, Calcium 9.3 02/07/25 06:13: WBC 8.8, RBC 3.79 L, Hgb 9.2 L, Hct 29.8 L, MCV 78.6 L, MCH 24.3 L, MCHC 30.9 L, RDW Std Deviation 47.5 H, RDW Coeff of Anurag 16.8 H, Plt Count 594 H, MPV 9.0, Immature Gran % (Auto) 0.500, Neut % (Auto) 65.8, Lymph % (Auto) 24.7, [place] % (Auto) 5.9, Eos % (Auto) 2.6, Baso % (Auto) 0.5, Absolute Neuts (auto) 5.8, Absolute Lymphs (auto) 2.17, Nucleated RBC % 0, Sodium 140, Potassium 4.2, Chloride 106, Carbon Dioxide 21.9, Anion Gap 12, BUN 19, Creatinine 0.59 L, Estim Creat Clear Calc 203.06, Est GFR (MDRD) Non-Af 131, BUN/Creatinine Ratio 32.1 H, Glucose 96, Calcium 9.1 Micro: Microbiology 02/03/25 08:55 Wound - Sacral Gram Stain - Final 02/03/25 08:55 Wound - Sacral Wound Culture - Preliminary Gram positive arlen Gram negative arlen 02/02/25 18:31 Blood Culture (Wb) - Chest Blood Culture - Preliminary No growth in 48 hours. 02/02/25 17:29 Blood Culture (Wb) - Chest Blood Culture - Preliminary No growth in 48 hours. 02/02/25 17:58 Urine, Catheterized Urine Culture - Final Enterobacter cloacae complex Klebsiella pneumoniae sp pneum Pseudomonas aeruginosa 02/02/25 17:09 Mucosa - Nose SARS-CoV-2, Influenza & RSV (PCR) - Final Physical Exam Narrative GENERAL: cooperative HEENT: Atraumatic; normocephalic EYES; Anicteric, Normal Conjunctiva NECK; supple, normal thyroid, RESPIRATORY: Diminished to auscultation CARDIOVASCULAR: Regular S1 S2, GI: soft, normoactive bowel sounds, : No Renal angle tenderness; EXTREMITIES: No edema, no clubbing, MUSCULOSKELETAL: no muscle wasting NEURO: Awake; no lateralizing signs. SKIN: Sacral pressure decubitus with wound VAC in place PSYCH; Flat affect Assessment & Plan Assessment/Plan (1) UTI (urinary tract infection): PLAN: Plan Patient is a 24-year-old lady with history of neck fracture with cervical spinal fusion with incomplete quadriplegia with a chronic indwelling Ma catheter secondary to neurogenic bladder who was sent to the ED by her home health care nurse with complaints of fever and tachycardia. An assessment of acute complicated UTI was made admitted to monitored bed for further management 1. Acute complicated UTI secondary to chronic indwelling Ma catheter ? Patient was resuscitated with IV fluids urine culture sent started on broad-spectrum antibiotic therapy with plans to adjust antibiotic therapy based on culture result ? 02/04/2025 patient remains on broad-spectrum antibiotic therapy urine culture still pending /07/2025; growing multiple organisms final identification and sensitivities pending Organism 1 GNR lactose clinical research monitor ; [place] Count 50,000-80,000 CFU/mL ; Organism 2 Gram negative arlen ; [place] Count 25,000-50,000 CFU/mL Organism 3 GNR Poss Pseudomonas sp; [place] Count 50,000-80,000 CFU/mL -02/06/2025;Patient seen urine cultures came back positive for Enterobacter species, Klebsiella as well as Pseudomonas patient remains on appropriate antibiotic therapy with cefepime. Consult placed to ID ? 02/07/2025;Patient seen had a relatively uneventful night. Consult was placed to ID regarding patient polymicrobial urinary tract infection. Awaiting input 2. Anemia ? Secondary to chronic disorder monitoring H&H and transfuse if patient becomes symptomatic or hemoglobin falls below 7 ? 02/04/2025; patient H&H remained stable 3. History of neck fracture -with cervical spinal fusion with incomplete quadriplegia 4. Indeterminate troponin ? Secondary to demand ischemia from above patient being monitored on continuous telemetry 5.. Chronic sacral wounds ? Patient was seen in consultation by wound care nurse as well as plastic surgery Dr. Gaona, recommended current wound VAC as well as protein supplementation with plans for consideration for possible reconstruction as outpatient ? 02/04/2025 wound cultures came back positive for gram-positive organisms 6. Class II obesity with BMI of 39 ? Complicating care weight loss advised 7. Depression with anxiety ? Patient is on escitalopram continue 8. Seizure disorder ? Patient was previously on antiseizure medication per patient she has been taking off 9. DVT prophylaxis ? Subcu enoxaparin with low threshold for discontinuation given patient low hemoglobin level Time spent in the patient's overall evaluation,decision-making process, review of diagnostic data, adjustment of management, discussion with other providers, nursing nursing and ancillary staff involved in patient's care documentation, 35 minutes Charges/Coding Visit Charges Inpatient E&M: 82033 [facility] Hosp L2
[2025-02-07 08:35] VITALS: BP 102/58; PULSE 797; RESP 15; TEMP 36.5; O2SAT 100
[2025-02-07] MEDS: Ensure Plus High Protein 120 ML LIQUID PO ×4 (09:02→20:43)
[2025-02-07] MEDS: Enoxaparin 40 MG/0.4 ML Syringe SC (09:03)
[2025-02-07] MEDS: Escitalopram Oxalate 20 MG Tablet PO (09:03)
[2025-02-07] MEDS: Baclofen 10 MG Tablet 40 MG PO ×2 (09:03→20:49)
[2025-02-07] MEDS: Aspirin E.C. 81 MG Tablet PO (09:03)
[2025-02-07] MEDS: Methenamine Hippurate 1 GM Tablet PO ×2 (09:03→20:49)
--- NOTE | 2025-02-07 10:50 | WOUNDNOTE ---
wound photo: sacrum
--- NOTE | 2025-02-07 13:03 | PCM.PN.ID ---
Physical Exam Narrative Feeling a little better, no fever, no abd pain Const alert and no apparent distress General Appearance: cooperative Resp normal air movement and clear to auscultation bilaterally Cardio regular rate and regular rhythm GI soft to palpation, non-tender and non-distended Skin Skin Narrative: no new rash ID ID: Route of nutrition/ use of supplements: [] Nutritional Intake: [] IV Site: [] Ma Catheter: [] Assessment & Plan Assessment/Plan (1) UTI (urinary tract infection): PLAN: Ucx with enterobcacter, klebs, PsA. Seen by Dr. Gaona, sacral wound has worsened since skin grafting 01/12/25, cont cefepime. Wound cx so far with rare growth of GPR and alcaligenes, but no wbc or bacteria seen on gram stain. Plan on cefepime to stop tomorrow. Will follow prn, d/w Dr. Bliss
[2025-02-07 14:16] VITALS: BP 131/80; PULSE 92; RESP 17; TEMP 36.5; O2SAT 97
[2025-02-07 15:00] VITALS: PULSE 80
[2025-02-07 16:25] VITALS: PULSE 101
[2025-02-07 20:36] VITALS: BP 111/69; PULSE 110; RESP 16; TEMP 36.7; O2SAT 100
[2025-02-08] VITALS: BP 115/67; PULSE 105; RESP 16; TEMP 36.4; O2SAT 100
[2025-02-08 04:00] VITALS: BP 120/83; PULSE 108; RESP 17; TEMP 36.4; O2SAT 100
[2025-02-08 04:54] VITALS: BP 120/83; PULSE 108; RESP 15; TEMP 36.6; O2SAT 98
[2025-02-08] MEDS: Cefepime HCl 2 GM in 0.9% Normal Saline (100mL MB+) 100 ML IV (04:58)
[2025-02-08 06:00] VITALS: BMI 48.2
[2025-02-08 08:49] VITALS: BP 113/58; PULSE 109; RESP 15; TEMP 36.7; O2SAT 98
[2025-02-08] MEDS: Escitalopram Oxalate 20 MG Tablet PO (08:51)
[2025-02-08] MEDS: Aspirin E.C. 81 MG Tablet PO (08:51)
[2025-02-08] MEDS: Methenamine Hippurate 1 GM Tablet PO (08:51)
[2025-02-08] MEDS: Baclofen 10 MG Tablet 40 MG PO (08:51)
[2025-02-08] MEDS: Enoxaparin 40 MG/0.4 ML Syringe SC (08:51)
[2025-02-08] MEDS: Ensure Plus High Protein 120 ML LIQUID PO (08:52)
--- NOTE | 2025-02-08 10:56 | DCINST_ITS ---
Discharge Instructions Diet Discharge Diet: No restrictions DC O2, CPAP, BIPAP needs Home O2 Discharge instructions: No Dressing / Incision Discharge Activity: No Restrictions Follow Up Care Test Results: Test results from this visit will be discussed in further detail at your follow- up appointment, if applicable. Discharge Plan Admission Admit Date/Time: 02/02/25 20:15 Primary Reason for Your Visit: fevers and high heart rate Attending Provider: Ra Motta Primary Care Provider: Dao Paulino Consulting Providers: Joseph Nguyen; Michelle Greenfield; Fernanda Rodriguez; Joseph Gaona; Vitaliy Bliss Discharge Orders/Prescriptions Prescriptions: Continued aspirin 81 mg Tablet,Delayed Release (Dr/Ec) 81 mg PO DAILY baclofen 20 mg Tablet 40 mg PO BID nitroglycerin 2 % Ointment 1 inch TRANSDERMAL PRN PRN (Reason: autonomic dysreflexia) cholecalciferol (vitamin D3) [Vitamin D3] 25 mcg (1,000 unit) Capsule 25 mcg PO DAILY docusate sodium 100 mg Capsule 100 mg PO TID PRN (Reason: stool softener) escitalopram oxalate 20 mg Tablet 20 mg PO DAILY methenamine hippurate [Hiprex] 1 gram tablet 1 g PO Q12H Rx Instructions: can be continued indefinitely. For UTI prevention. oxybutynin chloride 5 mg tablet extended release 24hr 5 mg PO DAILY Patient Comments: Take 1 tablet by mouth once daily. ondansetron 4 mg tablet,disintegrating 8 mg PO Q8H PRN PRN (Reason: Nausea) Qty: 20 0RF acetic acid 0.25 % Solution 1,000 ml irrigation DAILY Qty: 6000 0RF Referrals / Follow Up: Dao Paulino MD [Primary Care Provider] - Disposition Disposition (needs filled in before D/C Order can be placed): Home Health Service
--- NOTE | 2025-02-08 10:56 | PCM.DC.SUM ---
Providers Date of Admission: 02/02/25 Date of Discharge: 02/08/25 Primary Care Physician: Dr. aDo Paulino MD Consultations 02/02/25 21:22 Consult: Infectious Disease Routine Consulting Provider: Joseph Nguyen Reason for Consult: Complicated UTI EMERGENT Consult: No Notified: Yes Date Notified: 02/02/25 Time Notified: 23:02 Method of Notification: Answering Service Consult: Onc/Wound/advertising operations manager Routine Comment: Reason for Consult:: Wound VAC, chronic wound, ostomy 02/02/25 22:59 Consult: Urology Routine Consulting Provider: Fernanda Rodriguez Reason for Consult: for suprapubic cath change EMERGENT Consult: No Notified: Yes Date Notified: 02/03/25 Time Notified: 07:19 Method of Notification: Text 02/03/25 08:21 Consult: Plastic Surgery Routine Consulting Provider: Joseph Gaona Reason for Consult: worsening sacral wound EMERGENT Consult: No Notified: Yes Date Notified: 02/03/25 Time Notified: 08:21 Method of Notification: Verbal 02/06/25 10:27 Consult: Infectious Disease Routine Consulting Provider: Joseph Nguyen Reason for Consult: Polymicrobial UTI EMERGENT Consult: No Notified: Yes Date Notified: 02/07/25 Time Notified: 06:49 Method of Notification: Text Reason For Visit: UTI Diagnosis Discharge Diagnosis (1) UTI (urinary tract infection): Status: Acute Code(s): N39.0 - Urinary tract infection, site not specified Medications at Discharge Home Medications aspirin 81 mg tablet,delayed release 81 mg PO DAILY heart health 07/17/21 baclofen 20 mg tablet 40 mg PO BID muscle spasms 07/17/21 cholecalciferol (vitamin D3) 25 mcg (1,000 unit) capsule (Vitamin D3) 25 mcg PO DAILY supplement 07/17/21 docusate sodium 100 mg capsule 100 mg PO TID PRN stool softener 07/17/21 escitalopram oxalate 20 mg tablet 20 mg PO DAILY depression 07/17/21 nitroglycerin 2 % transdermal ointment 1 inch transdermal PRN PRN autonomic dysreflexia 07/17/21 methenamine hippurate 1 gram tablet (Hiprex) 1 g PO Q12H UTI prevention 09/12/22 ondansetron 4 mg disintegrating tablet 8 mg (2 x 4 mg) PO Q8H PRN PRN Nausea #20 tabs 08/23/23 oxybutynin chloride 5 mg tablet,extended release 24 hr 5 mg PO DAILY overactive bladder 10/11/23 acetic acid 0.25 % irrigation solution 1,000 ml irrigation DAILY wounds #6,000 mL 10/25/24 Hospital Course Operations None Procedures EKG and - (Chest x-ray) Summary of Care Provided Minutes Spent on Discharge: 35 Hospital Course: Patient is a 24-year-old female who presented to [facility] ED on 02/02/2025 with fevers and tachycardia. Hospital course as noted below. Patient discharged home with home health care in stable condition on 02/08. 1. Acute complicated UTI in setting of neurogenic bladder with chronic suprapubic Ma catheter ? ID followed. Urine culture positive for Enterobacter, Klebsiella and Pseudomonas. Completed 7-day course of cefepime while inpatient and per ID, no need for further antibiotics beyond this. 2. Mild acute on chronic debility in setting of history of neck fracture s/p cervical spine fusion with paraplegia ? PT/OT/case management followed. Patient stable for discharge home with home health care on 02/08. Continue home baclofen. 3. Chronic sacral wounds ? Plastic surgery and wound care followed. Had initial I&D with Dr. Gaona in October 2024 and wound was then skin grafted on 01/12/2025. Suspected that the poor wound healing is largely secondary to malnutrition and some nonadherence to proper pressure offloading. Per plastics, wound VAC placed while here and patient will likely need flap reconstruction at some point but did not need to happen during this hospitalization. Continue outpatient follow-up. Chronic medical conditions: ? Class III obesity: BMI 48 on admit. Complicated hospital course, care and prognosis. ? Depression with anxiety: Continue home escitalopram. ? Overactive bladder: Continue home oxybutynin. Total clinical time spent by myself addressing the patient's medical issues, reviewing all the data, and collaborating with patient's care team: 35 minutes. Physical Exam Narrative GENERAL: cooperative HEENT: Atraumatic; normocephalic EYES; Anicteric, Normal Conjunctiva NECK; supple, normal thyroid, RESPIRATORY: Diminished to auscultation CARDIOVASCULAR: Regular S1 S2, GI: soft, normoactive bowel sounds, : No Renal angle tenderness; EXTREMITIES: No edema, no clubbing, MUSCULOSKELETAL: no muscle wasting NEURO: Awake; no lateralizing signs. SKIN: Sacral pressure decubitus with wound VAC in place PSYCH; Flat affect Weight / BMI Weight Weight: 131.3 kg Body Mass Index (BMI) 48.2 ABG / Lab / Microbiology Data 02/07/25 06:13 02/07/25 06:13 Microbiology: Microbiology 02/02/25 17:29 Blood Culture (Wb) - Chest Blood Culture - Final No growth in 5 days. 02/02/25 18:31 Blood Culture (Wb) - Chest Blood Culture - Final No growth in 5 days. 02/03/25 08:55 Wound - Sacral Gram Stain - Final 02/03/25 08:55 Wound - Sacral Wound Culture - Final Gram positive arlen Alcaligenes faecalis ssp faeca 02/02/25 17:58 Urine, Catheterized Urine Culture - Final Enterobacter cloacae complex Klebsiella pneumoniae sp pneum Pseudomonas aeruginosa 02/02/25 17:09 Mucosa - Nose SARS-CoV-2, Influenza & RSV (PCR) - Final D/C Instructions DC O2, CPAP, BIPAP Needs Home O2 Discharge instructions: No Meaningful Use Info Meaningful Use Meaningful Use Diagnoses (Choose all that apply): None applicable Ischemic Stroke Statin Dosing Therapy Reference: STATIN DOSE THERAPY REFERENCE: * Patients > 75 years receive moderate or high dose statin therapy. * Patients 75 years or YOUNGER should receive HIGH intensity statin dose unless contraindicated. You will be required to document reason for non-treatment if statin daily dose does not meet guidelines. HIGH DOSE STATIN THERAPY DAILY Atorvastatin > than or = to 40 mg Rosuvastatin > than or = to 20 mg Amlodipine + Atorvastatin > than or = to 2.5/40 mg Ezetimibe + Simvastatin 10/80 mg Simvastatin 80mg Discharge Plan Admission Admit Date/Time: 02/02/25 20:15 Primary Reason for Your Visit: fevers and high heart rate Attending Provider: Ra Motta Primary Care Provider: Dao Paulino Consulting Providers: Joseph Nguyen; Michelle Greenfield; Fernanda Rodriguez; Joseph Gaona; Vitaliy Bliss Discharge Orders/Prescriptions Prescriptions: Continued aspirin 81 mg Tablet,Delayed Release (Dr/Ec) 81 mg PO DAILY baclofen 20 mg Tablet 40 mg PO BID nitroglycerin 2 % Ointment 1 inch TRANSDERMAL PRN PRN (Reason: autonomic dysreflexia) cholecalciferol (vitamin D3) [Vitamin D3] 25 mcg (1,000 unit) Capsule 25 mcg PO DAILY docusate sodium 100 mg Capsule 100 mg PO TID PRN (Reason: stool softener) escitalopram oxalate 20 mg Tablet 20 mg PO DAILY methenamine hippurate [Hiprex] 1 gram tablet 1 g PO Q12H Rx Instructions: can be continued indefinitely. For UTI prevention. oxybutynin chloride 5 mg tablet extended release 24hr 5 mg PO DAILY Patient Comments: Take 1 tablet by mouth once daily. ondansetron 4 mg tablet,disintegrating 8 mg PO Q8H PRN PRN (Reason: Nausea) Qty: 20 0RF acetic acid 0.25 % Solution 1,000 ml irrigation DAILY Qty: 6000 0RF Referrals / Follow Up: Dao Paulino MD [Primary Care Provider] - 02/14/25 11:40 am (Appointment is with Olive Nicolas) Disposition Disposition (needs filled in before D/C Order can be placed): Home Health Service Charges/Coding Visit Charges Inpatient E&M: 97303 Disch Hosp >30min
--- NOTE | 2025-02-08 11:38 | CASEMGMT ---
RN CM into pt room, pt states she has wound vac supplies at home. Denies any DC needs. Informed Pt ISAAC order sent to [facility]. Pt verbalized understanding.
--- NOTE | 2025-02-08 11:42 | PHA.DC_ITS ---
Pharmacy [facility] Reconciliation Pharmacy Service has performed discharge medication reconciliation for this patient. The patient's discharge medication list was reviewed for discrepancies and discrepancies were resolved. Medications at Discharge Home Medications aspirin 81 mg tablet,delayed release 81 mg PO DAILY heart health 07/17/21 baclofen 20 mg tablet 40 mg PO BID muscle spasms 07/17/21 cholecalciferol (vitamin D3) 25 mcg (1,000 unit) capsule (Vitamin D3) 25 mcg PO DAILY supplement 07/17/21 docusate sodium 100 mg capsule 100 mg PO TID PRN stool softener 07/17/21 escitalopram oxalate 20 mg tablet 20 mg PO DAILY depression 07/17/21 nitroglycerin 2 % transdermal ointment 1 inch transdermal PRN PRN autonomic dysreflexia 07/17/21 methenamine hippurate 1 gram tablet (Hiprex) 1 g PO Q12H UTI prevention 09/12/22 ondansetron 4 mg disintegrating tablet 8 mg (2 x 4 mg) PO Q8H PRN PRN Nausea #20 tabs 08/23/23 oxybutynin chloride 5 mg tablet,extended release 24 hr 5 mg PO DAILY overactive bladder 10/11/23 acetic acid 0.25 % irrigation solution 1,000 ml irrigation DAILY wounds #6,000 mL 10/25/24
--- NOTE | 2025-02-08 12:55 | CASEMGMT ---
Patient needed transportation home. ROSHNI spoke with patient and she will need a cot. ROSHNI completed Ambulance form and asked Slime d/c city planning engineer to please arrange the transport. Frances ROTH
--- NOTE | 2025-02-08 13:03 | CASEMGMT ---
Discharge Planning Physicians will transport pt by cot at 3:30p. Nursing, SW, and pt updated. Pt to update her mom. Slime Fleming DC Planning Asst.
--- NOTE | 2025-02-08 14:00 | PN.SURG_ITS ---
<Statement entered by Joseph Gaona MD - 02/08/25 14:24> Pt seen & evaluated w/KAVON. I personally interviewed & exam the pt. I was involved in all aspects of pt's orders, interpretation of results & treatment Subjective Subjective Sitting up in bed. She denies any complaints. She states she is doing well. Objective Data Objective Data Vital Signs: Vital Signs Temp Pulse Resp BP Pulse Ox O2 Del Method 98.1 F 109 H 15 113/58 L 98 Room Air 02/08/25 08:49 02/08/25 08:49 02/08/25 08:49 02/08/25 08:49 02/08/25 08:49 02/08/25 08:49 Oxygen Delivery Method Room Air Weight: 289 lb 7.471 oz Body Mass Index (BMI) 48.2 Intake & Output: Intake and Output for Last 24 Hours 02/07/25 02/07/25 02/08/25 00:59 23:59 23:59 Intake Total 1140 / 1140 920 / 920 340 / 340 Output Total 1851 / 1851 2600 / 2600 Balance -711 / -711 -1680 / -1680 340 / 340 Lab / Micro Data Attestation: I reviewed the patient's lab results. 02/07/25 06:13 02/07/25 06:13 Micro: Microbiology 02/02/25 17:29 Blood Culture (Wb) - Chest Blood Culture - Final No growth in 5 days. 02/02/25 18:31 Blood Culture (Wb) - Chest Blood Culture - Final No growth in 5 days. 02/03/25 08:55 Wound - Sacral Gram Stain - Final 02/03/25 08:55 Wound - Sacral Wound Culture - Final Gram positive arlen Alcaligenes faecalis ssp faeca 02/02/25 17:58 Urine, Catheterized Urine Culture - Final Enterobacter cloacae complex Klebsiella pneumoniae sp pneum Pseudomonas aeruginosa 02/02/25 17:09 Mucosa - Nose SARS-CoV-2, Influenza & RSV (PCR) - Final Physical Exam Narrative Sacral ulcer wound VAC dressing in place with good seal. Encouraged off loading. Const alert, oriented x3 and no apparent distress General Appearance: cooperative HEENT normocephalic Eyes General Eye: normal appearance of both eyes Resp normal respiratory effort Effort and Inspection: able to speak in complete sentences Cardio regular rate Assessment & Plan Assessment/Plan (1) Pressure ulcer: QUALIFIERS: Pressure injury location: sacral region Pressure injury stage: stage 3 Qualified Code(s): L89.153 - Pressure ulcer of sacral region, stage 3 PLAN: Plan Plan is for her to be discharged home today. She has home health and wound VAC dressing to be changed 3 times per week. She will follow up with Dr. Gaona at the wound center. Phoned wound center to have them arrange for her to be seen over the next 2-3 weeks, depending on transportation. Encouraged her to off load as much as possible. Encouraged increased protein intake and protein supplementation to help with wound healing. Discussed plan of care with Dr. Gaona.
[2025-02-08 15:34] VITALS: BP 107/60; PULSE 109; RESP 15; TEMP 36.6; O2SAT 98
== END 2025-02-08 16:12 | disposition home health service (06) | DRG 466 ==
LOC: ED 16:23 → PCU 21:13
PROVIDERS: Internal Medicine; Admitting Provider Family Medicine; Emergency Provider Emergency Medicine; PCP Family Medicine; Visit Provider Hospitalist
DX: T83.518A Infection and inflammatory reaction due to other urinary catheter, initial encounter (principal); L89.153 Pressure ulcer of sacral region, stage 3; I24.89 Other forms of acute ischemic heart disease; G40.909 Epilepsy, unspecified, not intractable, without status epilepticus; Z68.42 Body mass index [BMI] 45.0-49.9, adult; I10 Essential (primary) hypertension; D50.9 Iron deficiency anemia, unspecified; F32.A Depression, unspecified; Z93.3 Colostomy status; S14.109S Unspecified injury at unspecified level of cervical spinal cord, sequela; K21.9 Gastro-esophageal reflux disease without esophagitis; F41.9 Anxiety disorder, unspecified; S12.9XXS Fracture of neck, unspecified, sequela; T86.821 Skin graft (allograft) (autograft) failure; Y73.8 Miscellaneous gastroenterology and urology devices associated with adverse incidents, not elsewhere classified; N39.0 Urinary tract infection, site not specified; R00.0 Tachycardia, unspecified; N31.9 Neuromuscular dysfunction of bladder, unspecified; R07.9 Chest pain, unspecified; E66.812 Obesity, class 2; X58.XXXS Exposure to other specified factors, sequela; Y83.2 Surgical operation with anastomosis, bypass or graft as the cause of abnormal reaction of the patient, or of later complication, without mention of misadventure at the time of the procedure; R33.9 Retention of urine, unspecified; B96.5 Pseudomonas (aeruginosa) (mallei) (pseudomallei) as the cause of diseases classified elsewhere; B96.1 Klebsiella pneumoniae [K. pneumoniae] as the cause of diseases classified elsewhere; N32.81 Overactive bladder; E66.813 Obesity, class 3; Z79.82 Long term (current) use of aspirin; Z79.899 Other long term (current) drug therapy; Z98.1 Arthrodesis status; Z87.891 Personal history of nicotine dependence; Z86.14 Personal history of Methicillin resistant Staphylococcus aureus infection
CPT/HCPCS: 36415; 71045; 80048; 80053; 81001; 83605; 83735; 84100; 84484; 85025; 85027; 85610; 85730; 87040; 87070; 87077; 87086; 87088; 87184; 87186; 87205; 87631; 87640; 93005; 94668; 97802; 99285; A4216

== ENCOUNTER 2025-03-07 13:39 | Outpatient (RCR) | payer MEDICAID, SELFPAY ==
[2025-01-29 00:27] VITALS: BP 106/57; PULSE 105; RESP 20; TEMP 37.3
--- NOTE | 2025-02-10 15:29 | WC ---
Adela from [facility] called for pt to give update on new wound status. She now has bilateral heel pressure wounds, a left knee stage 2, left ankle blister and right lateral ankle ulcer. She is currently applying adhesive bandages to areas and monitoring pressure site. Any questions call [phone].
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
--- NOTE | 2025-03-08 10:48 | WC ---
PHOTO 03/07/25
== END 2025-03-30 23:59 | disposition home or self-care (01) ==
LOC: WC 13:39
PROVIDERS: PCP Family Medicine; Referring Provider Nurse Practitioner Family; Visit Provider Surgery Plastic and Reconstructive Surgery
DX: L89.154 Pressure ulcer of sacral region, stage 4 (principal); Z79.82 Long term (current) use of aspirin; Z79.899 Other long term (current) drug therapy
CPT/HCPCS: 11043; 11046

== ENCOUNTER 2025-05-02 13:19 | Outpatient (RCR) | payer MEDICAID, SELFPAY ==
[2025-03-31 00:04] VITALS: BP 106/57; PULSE 105; RESP 20; TEMP 37.3
[2025-05-02 13:42] VITALS: BP 83/45; PULSE 76; RESP 16; TEMP 36.5
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
== END 2025-05-30 23:59 | disposition home or self-care (01) ==
LOC: WC 13:19
PROVIDERS: PCP Family Medicine; Referring Provider Nurse Practitioner Family; Visit Provider Surgery Plastic and Reconstructive Surgery
DX: L89.153 Pressure ulcer of sacral region, stage 3 (principal); S14.106S Unspecified injury at C6 level of cervical spinal cord, sequela; V49.9XXS Car occupant (driver) (passenger) injured in unspecified traffic accident, sequela
CPT/HCPCS: 11042

== ENCOUNTER 2025-07-01 09:42 | Emergency (ER) | payer MEDICAID, SELFPAY ==
[2025-07-01 09:42] VITALS: BP 119/67; PULSE 107; RESP 18; TEMP 37.3; O2SAT 98; BMI 36.9
[2025-07-01 09:44] VITALS: BP 139/71; PULSE 107; RESP 18; TEMP 37.3; O2SAT 97
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
[2025-07-01 11:53] VITALS: BP 139/71; PULSE 107; RESP 18; TEMP 37.3; O2SAT 97
== END 2025-07-01 13:51 | disposition home or self-care (01) ==
PROVIDERS: Emergency Provider Surgery; PCP Family Medicine; Visit Provider Surgery
DX: K02.9 Dental caries, unspecified (principal); G82.21 Paraplegia, complete; K03.81 Cracked tooth; Z87.891 Personal history of nicotine dependence
CPT/HCPCS: 99284

== ENCOUNTER 2025-08-13 21:52 | Emergency (ER) | payer MEDICAID, SELFPAY ==
[2025-08-13 21:55] VITALS: BP 122/80; PULSE 89; RESP 16; TEMP 36.4; O2SAT 98; BMI 36.2
--- NOTE | 2025-08-13 22:29 | EDS_ITS ---
HPI HPI - Female History of Present Illness Chief Complaint: Ma C/O Narrative Narrative: Patient is a 24 year old female presenting to the ED for concerns about her suprapubic catheter being dislodged. She has a PMHX of paraplegia, neurogenic bladder, urinary retention with suprapubic catheter placement. Patient states that her suprapubic catheter was changed by her home health nurse on Friday and it was draining fine then however it has not drained well in the past 2 days. He states that there was urine leaking around her suprapubic site last night. Feels well otherwise. Denies fever, chills, nausea, vomiting. [facility] Medical History Paraplegia, complete Pressure ulcer Neurogenic bladder Urinary retention Single kidney Postoperative hypotension Anxiety Uses wheelchair Anemia Leukocytosis Thrombocytosis Microcytic anemia Stage IV pressure ulcer of sacral region Complication of indwelling urinary catheter Quadriplegia Purple urine bag syndrome Acute osteomyelitis of sacrum Depression Seizures Indwelling urethral catheter present Former smoker Ureteral calculus Autonomic dysreflexia Paraplegic spinal paralysis Urinary tract infection Neck fracture Double uterus Home Medications ?Medication ?Instructions ?Recorded ?Last Taken ?Type aspirin 81 mg tablet,delayed 81 mg PO DAILY heart heal th 07/17/21 02/02/25 History release baclofen 20 mg tablet 40 mg PO BID muscle spasms 0 07/17/21 02/02/25 History cholecalciferol (vitamin D3) 25 25 mcg PO DAILY supple ment 07/17/21 02/02/25 History mcg (1,000 unit) capsule (Vitamin D3) docusate sodium 100 mg capsule 100 mg PO TID PRN stool softener 07/17/21 10/27/22 08:00 History escitalopram oxalate 20 mg tablet 20 mg PO DAILY depre ssion 07/17/21 02/02/25 History nitroglycerin 2 % transdermal 1 inch transdermal PRN P RN 07/17/21 Unknown History ointment autonomic dysreflexia methenamine hippurate 1 gram 1 g PO Q12H UTI preventio n 09/12/22 02/02/25 History tablet (Hiprex) ondansetron 4 mg disintegrating 8 mg (2 x 4 mg) PO Q8H PRN PRN 08/23/23 Unknown Rx tablet Nausea #20 tabs oxybutynin chloride 5 mg 5 mg PO DAILY overactive roshan dder 10/11/23 02/02/25 History tablet,extended release 24 hr acetic acid 0.25 % irrigation 1,000 ml irrigation AKNA Y wounds 10/25/24 Unknown Rx solution #6,000 mL amoxicillin 875 mg-potassium 1 tab PO BID 10 days #20 tabs 07/01/25 Unknown Rx clavulanate 125 mg tablet Allergy/AdvReac Type Severity Reaction Status Date / Time vancomycin Allergy Severe Other Verified 08/13/25 21:57 Surgical History History of tracheostomy History of urostomy History of cystoscopy History of colectomy History of urethral stent S/P cervical spinal fusion H/O thumb surgery Social History household members: family Smoking Status: Former smoker alcohol intake: never substance use type: does not use ROS ROS ED ROS Narrative see HPI EXAM Physical Exam Narrative Exam Narrative: Vital signs: Reviewed General: Alert and orientedx3. No acute distress HEENT: Head is normocephalic and atraumatic, sinuses nontender, pupils equal round and reactive. Nares are patent. Oropharynx and throat exams normal. Neck: Supple without lymphadenopathy nontender Cardiovascular: Regular rate and rhythm, no murmurs. No rubs or gallops. Normal S1 and S2 Respiratory: Clear to auscultation bilaterally. No wheezes, rales, rhonchi Abdominal: Soft and nontender. Normal bowel sounds. No guarding or rebound. Nonsurgical abdomen. Suprapubic catheter [address] Draining yellow urine. LLQ colostomy bag with brown stool. No erythema around the suprapubic or colostomy site. Extremities: Paraplegic The rest of the physical exam is unremarkable Const Vital Signs: 08/13/25 21:55 08/13/25 23:56 Temperature 97.5 F L 98.0 F Temperature Source Oral Pulse Rate 89 71 Respiratory Rate 16 16 Blood Pressure 122/80 H 120/60 Blood Pressure Mean 94 80 Pulse Ox 98 97 Oxygen Delivery Method Room Air MDM MDM MDM Narrative Medical decision making narrative: Patient is a 24-year-old female presenting to the emergency department for an issue with her suprapubic catheter. Patient was seen and examined. Vitals are stable. Patient resting in bed comfortably no acute distress. Mother is at bedside. She states that she had to change the patient's sheets this morning because there was urine leaking around the suprapubic site. There is urine in the Ma catheter bag however they state that it has not really changed over the past day or so. Given this I discussed changing the suprapubic catheter out with the patient and mother. They are agreeable. Verbal consent obtained. Patient has a 18 [place] catheter currently in place. Area was prepped with Betadine. Using sterile precautions, the suprapubic catheter balloon was deflated and the catheter was removed. A 18 [place] catheter was placed into the stoma meeting no resistance. There was urine return. Balloon was inflated with 10 cc of sterile saline. Patient tolerated the procedure well. There was some small amount of hematuria however patient and mother state that this is normal. Patient is feeling fine otherwise, no systemic symptoms, no indication to send urine for urinalysis given she is just here for leakage ar ound the suprapubic catheter. Patient is stable for discharge back home. Patient discharged from the Emergency Department. I do not feel that the patient's evaluation reveals any acute reason for admission at this time. I instructed them to either follow-up with their primary care physician or promptly return to the Emergency Department for reevaluation should symptoms worsen or new symptoms develop. I explained what symptoms would indicate the need to return to the emergency department. Shared decision making was used. The patient voiced understanding of the treatment plan and is agreeable with it. Clinical impression Suprapubic catheter complication History & Record Review Discussion w/independent historian: Patient and Family Discharge Plan Triage Chief Complaint: Ma C/O ED Provider: Frances Araujo Dx/Rx/DC Orders Clinical Impression: Suprapubic catheter dysfunction Instructions: Suprapubic Catheter Dc Prescriptions: No Action aspirin 81 mg Tablet,Delayed Release (Dr/Ec) 81 mg PO DAILY baclofen 20 mg Tablet 40 mg PO BID nitroglycerin 2 % Ointment 1 inch TRANSDERMAL PRN PRN (Reason: autonomic dysreflexia) cholecalciferol (vitamin D3) [Vitamin D3] 25 mcg (1,000 unit) Capsule 25 mcg PO DAILY docusate sodium 100 mg Capsule 100 mg PO TID PRN (Reason: stool softener) escitalopram oxalate 20 mg Tablet 20 mg PO DAILY methenamine hippurate [Hiprex] 1 gram tablet 1 g PO Q12H Rx Instructions: can be continued indefinitely. For UTI prevention. oxybutynin chloride 5 mg tablet extended release 24hr 5 mg PO DAILY Patient Comments: Take 1 tablet by mouth once daily. ondansetron 4 mg tablet,disintegrating 8 mg PO Q8H PRN PRN (Reason: Nausea) Qty: 20 0RF amoxicillin-pot clavulanate 875-125 mg tablet 1 tab PO BID 10 Days Qty: 20 0RF acetic acid 0.25 % Solution 1,000 ml irrigation DAILY Qty: 6000 0RF Primary Care Provider: Dao Paulino Referrals: Dao Paulino MD [Primary Care Provider] - 2 Days Activity Restrictions/Additional Instructions: Your evaluation in the Emergency Department did not reveal any acute reason for admission. However, I want to emphasize that you may be early in the course of a disease process or illness even if it is not present. For this reason you should follow-up within 24 hours for reevaluation with either your primary care physician or if necessary back here in the Emergency Department. You should return to the Emergency Department immediately if your symptoms worsen or new symptoms develop. Print Language: Brazilian Disposition Disposition: Home, Self Care Discharge Date/Time: 08/14/25 00:10
[2025-08-13 23:56] VITALS: BP 120/60; PULSE 71; RESP 16; TEMP 36.7; O2SAT 97
== END 2025-08-14 00:10 | disposition home or self-care (01) ==
PROVIDERS: Emergency Provider Student in an Organized Health Care Education/Training Program; PCP Family Medicine; Visit Provider Student in an Organized Health Care Education/Training Program
DX: T83.098A Other mechanical complication of other urinary catheter, initial encounter (principal); Z87.891 Personal history of nicotine dependence; F32.A Depression, unspecified; Z79.899 Other long term (current) drug therapy; Z90.49 Acquired absence of other specified parts of digestive tract
CPT/HCPCS: 99284

== ENCOUNTER 2025-08-26 14:49 | Inpatient (IN) | payer MEDICAID, SELFPAY ==
[2025-08-26] VITALS (9 sets, daily range): BP systolic 102–152; BP diastolic 62–99; PULSE 101–137; RESP 17–23; TEMP 36.9–38.3; O2SAT 96–100; BMI 35.6; BMI 35.0
--- NOTE | 2025-08-26 15:00 | RAD_ITS ---
PROCEDURE: CHEST 1 VIEW (PORTABLE) 08/26/2025 REASON FOR EXAM: CHILL TECHNIQUE: Frontal view of the chest. COMPARISON: 02/02/2025 FINDINGS: LINES: Right chest port tip terminating in the upper right atrium. LUNGS AND PLEURA: The lungs are clear. No pleural effusion or pneumothorax. HEART AND MEDIASTINUM: The heart size and mediastinal contours are normal. BONES: No acute osseous abnormality. Prior lower cervical spine fusion. RAD/Chest 1 View (Portable) IMPRESSION: No Acute Findings. Reading Location: [id number]
--- NOTE | 2025-08-26 15:00 | EKG12_ITS ---
Test Reason : SEPSIS WORK UP Blood Pressure : */* mmHG Vent. Rate : 126 BPM Atrial Rate : 126 BPM P-R Int : 142 ms QRS Dur : 92 ms QT Int : 294 ms P-R-T Axes : 44 60 44 degrees QTcB Int : 425 ms Sinus tachycardia Otherwise normal ECG Confirmed by JOVANNI PERALES ([id number]), editorial director KIERRA COURTNEY ([id number]) on 08/29/2025 9:08:14 AM Referred By: Confirmed By: JOVANNI PERALES
--- NOTE | 2025-08-26 15:01 | EDS_ITS ---
HPI History of Present Illness Chief Complaint: General Illness Narrative Narrative: Patient is a 24-year-old female with past medical history of paraplegia, neurogenic bladder, chronic indwelling Ma catheter, anxiety, thrombocytopenia, depression, seizure who presented to the emergency department the chief complaint of generalized not feeling well. States that since Friday she has not been feeling well and she has nausea but denies any other specific complaints. Patient states that her mother has has a cough at this point time right now. [facility] Medical History (Updated 08/26/25 @ 17:[address] Harris Corea, DO) Chronic indwelling Ma catheter Paraplegia, complete Postoperative hypotension Anxiety Uses wheelchair Anemia Pressure ulcer Leukocytosis Thrombocytosis Microcytic anemia Stage IV pressure ulcer of sacral region Complication of indwelling urinary catheter Quadriplegia Purple urine bag syndrome Acute osteomyelitis of sacrum Neurogenic bladder Urinary retention Depression Seizures Indwelling urethral catheter present Former smoker Ureteral calculus Autonomic dysreflexia Paraplegic spinal paralysis Urinary tract infection Neck fracture Single kidney Double uterus Home Medications ?Medication ?Instructions ?Recorded ?Last Taken ?Type aspirin 81 mg tablet,delayed 81 mg PO DAILY heart heal th 07/17/21 02/02/25 History release baclofen 20 mg tablet 40 mg PO BID muscle spasms 0 07/17/21 02/02/25 History cholecalciferol (vitamin D3) 25 25 mcg PO DAILY supple ment 07/17/21 02/02/25 History mcg (1,000 unit) capsule (Vitamin D3) docusate sodium 100 mg capsule 100 mg PO TID PRN stool softener 07/17/21 10/27/22 08:00 History escitalopram oxalate 20 mg tablet 20 mg PO DAILY depre ssion 07/17/21 02/02/25 History nitroglycerin 2 % transdermal 1 inch transdermal PRN P RN 07/17/21 Unknown History ointment autonomic dysreflexia methenamine hippurate 1 gram 1 g PO Q12H UTI preventio n 09/12/22 02/02/25 History tablet (Hiprex) ondansetron 4 mg disintegrating 8 mg (2 x 4 mg) PO Q8H PRN PRN 08/23/23 Unknown Rx tablet Nausea #20 tabs oxybutynin chloride 5 mg 5 mg PO DAILY overactive roshan dder 10/11/23 02/02/25 History tablet,extended release 24 hr acetic acid 0.25 % irrigation 1,000 ml irrigation KANA Y wounds 10/25/24 Unknown Rx solution #6,000 mL amoxicillin 875 mg-potassium 1 tab PO BID 10 days #20 tabs 07/01/25 Unknown Rx clavulanate 125 mg tablet Allergy/AdvReac Type Severity Reaction Status Date / Time vancomycin Allergy Severe Other Verified 08/26/25 15:04 Surgical History History of tracheostomy History of urostomy History of cystoscopy History of colectomy History of urethral stent S/P cervical spinal fusion H/O thumb surgery Social History household members: family Smoking Status: Former smoker alcohol intake: never substance use type: does not use ROS ROS ED ROS Narrative Constitutional: Complains of chills denies any fever complains of whole body aches Eyes: Denies double vision blurry vision Cardiovascular: Denies chest pain Respiratory: Denies shortness of breath denies coughing Abdomen: Denies abdominal pain vomiting diarrhea states that she is nauseous : States that she has chronic indwelling Ma Neurological: Denies numbness, weakness, tingling Musculoskeletal: Denies back pain Skin: Denies any rashes or lesions EXAM Physical Exam Narrative Exam Narrative: General: Patient lying in bed rest comfortably did not appear to be in acute distress Head: Atraumatic, normocephalic Eyes: PERRL bilaterally, EOMI bilaterally, no conjunctival injection noted Neck: Soft, supple, trachea midline Cardiovascular: Regular rate and rhythm Respiratory: Clear to auscultation bilaterally Abdomen: Soft, nondistended, no tenderness to palpation, colostomy site has good output no evidence of black stools no blood in the stool no concern for infection in this area Extremities: Patient is paralyzed Neurological: Patient following commands knew that she was at [facility] the year is 2024 Skin: Warm, dry, patient has erythema along the right abdominal wall and the right upper leg no petechia no purpura no sloughing of skin noted Const Vital Signs: 08/26/25 14:49 08/26/25 14:59 08/26/25 15:38 Temperature 98.4 F 99.4 F H Temperature Source Oral Oral Pulse Rate 122 H 127 H Respiratory Rate 18 22 H Respiratory Effort Respiratory Pattern Blood Pressure 115/92 H 127/90 H Blood Pressure Mean 99 102 Pulse Ox 96 99 Oxygen Delivery Method Room Air Room Air Room Air 08/26/25 16:43 08/26/25 17:43 08/26/25 17:53 Temperature 100 F H 100.6 F H Temperature Source Oral Oral Pulse Rate 101 H 131 H Respiratory Rate 23 H 17 Respiratory Effort Normal Non-Labored Respiratory Pattern Normal Blood Pressure 131/78 H 106/76 Blood Pressure Mean 95 86 Pulse Ox 98 96 Oxygen Delivery Method Room Air Room Air MDM MDM MDM Narrative Medical decision making narrative: Patient is a 24-year-old female who presents to the emergency department the chief complaint of generalized illness and not feeling well overall. On the differential diagnose includes but limited to UTI, cellulitis, pneumonia, electrolyte abnormality. Once workup is obtained reviewed she will be reevaluated. Patient was ordered 30 cc/kg bolus of IV fluids at 1500. Patient be given Zofran for nausea and should be given a gram of Rocephin at 3:06 PM. Patient CBC was significant for leukocytosis of 14,000, hemoglobin 11.4, platelet count pending currently. Patient INR normal 1.2, PT of 15.1. Patient sodium was 133, potassium was 5.4 however this was hemolyzed, creatinine 0.88. Patient's lactic acid normal at 1.2, AST and ALT were 47 and 36 respectively. Patient urinalysis is pending. Patient's chest x-ray reviewed by myself and by radiology which showed no acute cardiopulmonary processes. Patient remains tachycardic to 133, tachypneic and she is febrile at 100.6 she will be given a gram of Tylenol. At this point time will discuss case with hospitalist for admission for a right abdominal wall cellulitis. Discussed case with hospitalist Dr. Pozo who accept patient for admission. Patient notified is agreeable to plan all question concerns answered. Lab Data Labs: Laboratory Results - last 24 hr 08/26/25 15:25 WBC 14.8 H RBC 4.75 Hgb 11.4 L Hct 36.8 L MCV 77.5 L MCH 24.0 L MCHC 31.0 L RDW Std Deviation 50.2 H RDW Coeff of Anurag 18.1 H Immature Gran % (Auto) 0.700 Neut % (Auto) 83.2 H Lymph % (Auto) 12.3 L [place] % (Auto) 3.1 Eos % (Auto) 0.1 Baso % (Auto) 0.6 Absolute Neuts (auto) 12.3 H Absolute Lymphs (auto) 1.81 Nucleated RBC % 0 PT 15.1 H INR 1.2 APTT 21.3 L Sodium 133 Potassium 5.4 H Chloride 104 Carbon Dioxide 13.3 L Anion Gap 16 H BUN 21 H Creatinine 0.88 Estim Creat Clear Calc 115.62 Est GFR (MDRD) Non-Af 95 BUN/Creatinine Ratio 23.6 H Glucose 95 Lactic Acid 1.2 Calcium 8.7 Total Bilirubin 0.66 AST 47 H ALT 36 H Alkaline Phosphatase 112 H Total Protein 7.4 Albumin 3.0 L Globulin 4.4 H Albumin/Globulin Ratio 0.7 L Radiography Diagnostic Testing: Clinical Impression(s) from Imaging Studies Chest X-Ray 08/26/25 15:00 IMPRESSION: No Acute Findings. Reading Location: [id number] Discharge Plan Dx/Rx/DC Orders Clinical Impression: Abdominal wall cellulitis, Fever, Tachycardia, Quadriplegia, Chronic indwelling Ma catheter, Metabolic acidosis Disposition Disposition: Acute Care [facility]
[2025-08-26] MEDS: 0.9% Normal Saline (1000mL) 1,000 ML 999 ML IV ×3 (15:35→19:26)
[2025-08-26] MEDS: Ceftriaxone 2 GM in 0.9% Normal Saline (50mL MB+) 50 ML IV (15:53)
[2025-08-26 16:21] LABS: AST(SGOT) 47 U/L (<=31); Alanine Aminotransfer ALT/SGPT 36 U/L (<=34); Albumin, Serum 3.0 g/dL (3.5-5.0); Alkaline Phosphatase 112 U/L (35-104); Anion Gap 16 (5-15); BUN 21 mg/dL (4-19); BUN/Creat Ratio 23.6 RATIO (10-20); Calcium,Total 8.7 mg/dL (7.6-11.0); Carbon Dioxide 13.3 mmol/L (21.0-32.0); Chloride 104 mmol/L (98-108); Estimated Creatinine Clearance 115.62 ml/min (50-250); Globulin 4.4 g/dL (2.2-4.2); Glucose 95 mg/dL (70-99); Potassium 5.4 mmol/L (3.3-5.1)
[2025-08-26 16:22] LABS: Hematocrit 36.8 % (37-47); Hemoglobin 11.4 g/dL (12.0-15.0); Immature Granulocytes Count 0.110 X10^3/uL (0.0-0.0); Mean Corp Hgb Conc 31.0 g/dL (32-36); Mean Corpuscular Volume 77.5 fL (81-99); NRBC Flagged by Analyzer 0 % (0-5); POSITIVE COUNT YES; RBC Distribution Width CV 18.1 % (11.6-14.6); RBC Distribution Width SD 50.2 fl (35.1-43.9); Red Blood Count 4.75 M/mm3 (4.2-5.4); White Blood Count 14.8 K/mm3 (4.4-11.0)
[2025-08-26 16:34] LABS: Prothrombin Time (Protime)PT. 15.1 SECONDS (11.7-14.9)
[2025-08-26 16:47] LABS: Differential Indicated SCAN CRITERIA MET
[2025-08-26 17:05] LABS: Partial Thromboplast Time 21.3 Seconds (24.1-36.2)
[2025-08-26 17:18] LABS: Mucous, Urine 0 SEEN /hpf (<or=2+)
[2025-08-26 17:31] LABS: Color, Urine Yellow (Yellow); Glucose, Dipstick Normal (Normal); Ketone-Dipstick 15 mg/dl (Negative); Leukocyte Esterase-Dipstick 500 /ul (Negative); Nitrite-Dipstick Positive (Negative); Occult Blood-Urine 250 /ul (Negative); Protein-Dipstick 100 mg/dl (Negative); Specific Gravity, Urine 1.015 (1.002-1.030)
[2025-08-26 17:57] LABS: Urine Bilirubin Dipstick 1 mg/dL (Negative)
--- NOTE | 2025-08-26 18:20 | ED.RN ---
PT. REQUESTED THIS NURSE TO ACCESS HER PORT AFTER INITIALLY DECLINING IT BEING ACCESSED ON ARRIVAL TO THE ED. AFTER HAVING EQUIPMENT SET UP FOR ACCESSING THE PORT, THE PT. DECLINED ONCE AGAIN. DOCTOR BAKER AT THE BEDSIDE. DOCTOR LARA MADE AWARE. IV TREATMENT DELAYED DUE TO LIMITED AND FAILED PERIPHERAL ACCESS.
[2025-08-26 18:32] LABS: Differential Comment SCANNED
--- NOTE | 2025-08-26 18:37 | ED.RN ---
Antibiotics delayed due to lack of IV access
--- NOTE | 2025-08-26 19:12 | PCM.HP.STD ---
HPI - General General Date of Admission: 08/26/25 Date of Service: 08/26/25 Chief Complaint: General malaise HPI Narrative KIERRA NARANJO, is a 24-year-old female with a history of paraplegia with neurogenic bladder, chronic indwelling Ma catheter, depression who presented to [facility] ED 08/26/2025 due to feeling generally unwell since Friday. In the ED temp initially 98.4 but increased to 100.6, heart rate in the 120s, blood pressure 115/92, respiratory rate 18 pulse ox 96% on room air. CBC with a white count of 14.8 and hemoglobin of 11.4, CMP with a hemolyzed potassium read out as 5.4 but likely falsely elevated given hemolysis, BUN 21, creatinine 0.88, bicarb listed at 13 and anion gap of 16 but query lab error, lactic acid within normal limits, AST 47, ALT 36, alk phos 112. Chest x-ray with no acute findings. UA suggestive of UTI and additionally patient with left abdominal wall cellulitis. She was given broad-spectrum antibiotics and hospitalist contacted for admission for antibiotics for UTI and right pannus cellulitis. Patient evaluated at bedside, she is very tearful as they are trying to presently get access, patient very reluctant to engage in conversation, does endorse feeling unwell since Friday, possible fever but cannot give me any measurements, denied to me any nausea or any other new or acute complaints. No chest pain or shortness of breath, did not report cough. Patient unsure how long she has had this cellulitic changes of the right pannus and right thigh [facility] Medical History (Updated 08/26/25 @ 20:[address] Love Pozo MD) Acute osteomyelitis of sacrum Anemia Anxiety Autonomic dysreflexia Chronic indwelling Ma catheter Complication of indwelling urinary catheter Depression Double uterus Former smoker Indwelling urethral catheter present Leukocytosis Microcytic anemia Neck fracture Neurogenic bladder Paraplegia, complete Paraplegic spinal paralysis Postoperative hypotension Pressure ulcer Purple urine bag syndrome Quadriplegia Seizures Single kidney Stage IV pressure ulcer of sacral region Thrombocytosis Ureteral calculus Urinary retention Urinary tract infection Uses wheelchair Home Medications ?Medication ?Instructions ?Recorded ?Last Taken ?Type aspirin 81 mg tablet,delayed 81 mg PO DAILY heart health 07/17/21 02/02/25 History release baclofen 20 mg tablet 40 mg PO BID muscle spasms 07/17/21 02/02/25 History cholecalciferol (vitamin D3) 25 25 mcg PO DAILY supplement 07/17/21 02/02/25 History mcg (1,000 unit) capsule (Vitamin D3) docusate sodium 100 mg capsule 100 mg PO TID PRN stool softener 07/17/21 10/27/22 08:00 History escitalopram oxalate 20 mg tablet 20 mg PO DAILY depression 07/17/21 02/02/25 History nitroglycerin 2 % transdermal 1 inch transdermal PRN PRN 07/17/21 Unknown History ointment autonomic dysreflexia methenamine hippurate 1 gram 1 g PO Q12H UTI prevention 09/12/22 02/02/25 History tablet (Hiprex) ondansetron 4 mg disintegrating 8 mg (2 x 4 mg) PO Q8H PRN PRN 08/23/23 Unknown Rx tablet Nausea #20 tabs acetic acid 0.25 % irrigation 1,000 ml irrigation DAILY wounds 10/25/24 Unknown Rx solution #6,000 mL ascorbic acid (vitamin C) 500 mg 500 mg PO QODAY 08/26/25 Unknown History tablet ferrous sulfate 325 mg (65 mg 325 mg PO QODAY 08/26/25 Unknown History iron) tablet (FeroSul) folic acid 1 mg tablet 1 mg PO DAILY 08/26/25 Unknown History hydroxyzine HCl 50 mg tablet 50 mg PO QHS PRN PRN anxiety 08/26/25 Unknown History nystatin 100,000 unit/gram topical 1 applic topical BID PRN PRN rash 08/26/25 Unknown History powder tizanidine 4 mg tablet 4 mg PO BID 08/26/25 Unknown History Allergy/AdvReac Type Severity Reaction Status Date / Time vancomycin Allergy Severe Other Verified 08/26/25 15:04 Surgical History H/O thumb surgery History of colectomy History of cystoscopy History of tracheostomy History of urethral stent History of urostomy S/P cervical spinal fusion Social History household members: family Smoking Status: Former smoker alcohol intake: never substance use type: does not use ROS ROS Narrative 10 point review of systems obtained and pertinent positives and negatives as above Vital Signs Vital Signs Vital Signs: 08/26/25 14:49 08/26/25 14:59 08/26/25 15:38 Temperature 98.4 F 99.4 F H Temperature Source Oral Oral Pulse Rate 122 H 127 H Respiratory Rate 18 22 H Respiratory Effort Respiratory Pattern Blood Pressure 115/92 H 127/90 H Blood Pressure Mean 99 102 Pulse Ox 96 99 Oxygen Delivery Method Room Air Room Air Room Air 08/26/25 16:43 08/26/25 17:43 08/26/25 17:53 Temperature 100 F H 100.6 F H Temperature Source Oral Oral Pulse Rate 101 H 131 H Respiratory Rate 23 H 17 Respiratory Effort Normal Non-Labored Respiratory Pattern Normal Blood Pressure 131/78 H 106/76 Blood Pressure Mean 95 86 Pulse Ox 98 96 Oxygen Delivery Method Room Air Room Air 08/26/25 18:00 08/26/25 18:47 08/26/25 19:00 Temperature 100.5 F H 100.1 F H 100.1 F H Temperature Source Oral Oral Pulse Rate 137 H 128 H 125 H Respiratory Rate 23 H 17 20 H Respiratory Effort Respiratory Pattern Blood Pressure 124/96 H 111/67 102/64 Blood Pressure Mean 105 81 76 Pulse Ox 97 99 97 Oxygen Delivery Method Room Air Room Air Weight Weight: 97.1 kg Body Mass Index (BMI) 35.6 Physical Exam Narrative General: Alert, anxious HEENT: Atraumatic, normocephalic Eyes: normal conjunctiva, extraocular movements grossly intact Neck: Supple Respiratory: Diminished at the bases suspect secondary to body habitus, does not appear to be in respiratory distress Cardiovascular: Sinus tachycardia GI: Soft, nontender, nondistended Extremities: No peripheral pitting edema Musculoskeletal: Moves upper extremities to some extent Neuro: Patient with baseline deficits Skin: Patient with warmth and erythema/cellulitic changes on right thigh and right pannus Psych: Uncooperative, tearful Results Lab / Micro Data 08/26/25 15:25 08/26/25 15:25 Labs: Laboratory Results - last 24 hr 08/26/25 15:25: WBC 14.8 H, RBC 4.75, Hgb 11.4 L, Hct 36.8 L, MCV 77.5 L, MCH 24.0 L, MCHC 31.0 L, RDW Std Deviation 50.2 H, RDW Coeff of Anurag 18.1 H, Plt Count TNP, MPV TNP, Immature Gran % (Auto) 0.700, Neut % (Auto) 83.2 H, Lymph % (Auto) 12.3 L, [place] % (Auto) 3.1, Eos % (Auto) 0.1, Baso % (Auto) 0.6, Absolute Neuts (auto) 12.3 H, Absolute Lymphs (auto) 1.81, Nucleated RBC % 0, Differential Comment SCANNED, Platelet Estimate SLT INC, PT 15.1 H, INR 1.2, APTT 21.3 L, Sodium 133, Potassium 5.4 H, Chloride 104, Carbon Dioxide 13.3 L, Anion Gap 16 H, BUN 21 H, Creatinine 0.88, Estim Creat Clear Calc 115.62, Est GFR (MDRD) Non-Af 95, BUN/Creatinine Ratio 23.6 H, Glucose 95, Lactic Acid 1.2, Calcium 8.7, Total Bilirubin 0.66, AST 47 H, ALT 36 H, Alkaline Phosphatase 112 H, Total Protein 7.4, Albumin 3.0 L, Globulin 4.4 H, Albumin/Globulin Ratio 0.7 L 08/26/25 17:02: Urine Color Yellow, Urine Clarity Turbid, Urine pH 8.0, Ur Specific [place] 1.015, Urine Protein 100 H, Urine Glucose (UA) Normal, Urine Ketones 15 H, Urine Occult Blood 250 H, Urine Nitrite Positive H, Urine Bilirubin 1 H, Urine Urobilinogen 4 H, Ur Leukocyte Esterase 500 H Micro: Microbiology 08/26/25 15:20 Mucosa - Nose SARS-CoV-2, Influenza & RSV (PCR) - Final Imaging Radiology Impression Chest X-Ray 08/26/25 15:00 IMPRESSION: No Acute Findings. Reading Location: [facility] Assessment & Plan Assessment/Plan (1) Abdominal wall cellulitis: (2) Urinary tract infection: PLAN: Plan # Urinary tract infection associated with chronic indwelling catheter -Elevated white blood cell count, febrile with temp of 100.6, heart rate 120, UA suggestive of UTI -Patient does meet SIRS criteria however has no evidence of endorgan dysfunction that would lead to a suspected diagnosis of sepsis at this time -Has history of multiple urinary tract infections in the past -Will place on broad spectrum antibiotics with Merrem given previous culture and sensitivity data -May need to consult ID once results available -IV fluids - Continue methenamine # Right abdominal wall cellulitis -Will treat with antibiotics as above # Sinus tachycardia -Rate of around 120, patient very anxious and also febrile, suspect this is the reason however will check TSH to verify no additional component # Paraplegia -Supportive care -Continue baclofen #Depression/anxiety -Continue home medications #DVT ppx: Lovenox subcu Love Pozo MD Charges/Coding Visit Charges Inpatient E&M: 20341 Init Hosp L2
[2025-08-26 19:26] LABS: Red Blood Cells-Urine 25-50 SEEN /hpf (0-5)
[2025-08-26 19:28] LABS: Squamous Epithelial Cells - UA 0-5 SEEN /hpf (5-10)
[2025-08-26] MEDS: 0.9% Normal Saline (1000mL) 1,000 ML 50 ML IV (23:50)
[2025-08-26] MEDS: Meropenem 1 GM in 0.9% Normal Saline (100mL MB+) 100 ML IV (23:51)
[2025-08-27 00:02] VITALS: BP 96/45; PULSE 90; RESP 16; TEMP 36.8; O2SAT 98
--- NOTE | 2025-08-27 00:34 | PCM.HOSP.N ---
Sepsis Attestation Sepsis Alert: Yes Sepsis Attestation: Agree w/Sepsis Date exam was performed: 08/27/25 Time exam was performed: 00:34 Possible Source of Sepsis: Genitourinary Sepsis Organ Dysfunction Criteria Present: SBP < 90 mmHg or MAP < 65 mmHg Fluid Resuscitation Fluid Resuscitation ordered: Lesser volume fluid bolus ordered (30ml/kg IVF given in ER 9.26.25 at 1500) Amount of fluid ordered: 1,000 Reason for lesser fluid bolus:: BP Responded to a lesser volume
[2025-08-27] MEDS: hydrOXYzine PAM 25 MG Capsule PO (00:55)
[2025-08-27] MEDS: 0.9% Normal Saline (1000mL) 1,000 ML 999 ML IV (00:55)
[2025-08-27 02:00] VITALS: BP 115/83; PULSE 86; RESP 20; TEMP 37; O2SAT 100
[2025-08-27 06:03] VITALS: BP 144/79; PULSE 92; RESP 20; TEMP 36.4; O2SAT 99
[2025-08-27] MEDS: Meropenem 1 GM in 0.9% Normal Saline (100mL MB+) 100 ML IV ×3 (06:05→23:20)
[2025-08-27 07:22] LABS: Hematocrit 31.2 % (37-47); Hemoglobin 10.1 g/dL (12.0-15.0); Immature Granulocytes Count 0.090 X10^3/uL (0.0-0.0); Mean Corp Hgb Conc 32.4 g/dL (32-36); Mean Corpuscular Volume 75.4 fL (81-99); Mean Platelet Vol. 10.5 fl (6.2-12.0); NRBC Flagged by Analyzer 0 % (0-5); Platelet Count 279 K/mm3 (150-450); RBC Distribution Width CV 18.5 % (11.6-14.6); RBC Distribution Width SD 49.7 fl (35.1-43.9); Red Blood Count 4.14 M/mm3 (4.2-5.4); White Blood Count 13.5 K/mm3 (4.4-11.0)
[2025-08-27 07:55] LABS: AST(SGOT) 32 U/L (<=31); Alanine Aminotransfer ALT/SGPT 33 U/L (<=34); Albumin, Serum 2.8 g/dL (3.5-5.0); Alkaline Phosphatase 104 U/L (35-104); Anion Gap 13 (5-15); BUN 19 mg/dL (4-19); BUN/Creat Ratio 26.6 RATIO (10-20); Calcium,Total 8.3 mg/dL (7.6-11.0); Carbon Dioxide 14.7 mmol/L (21.0-32.0); Chloride 107 mmol/L (98-108); Estimated Creatinine Clearance 140.08 ml/min (50-250); Globulin 3.9 g/dL (2.2-4.2); Glucose 114 mg/dL (70-99); Potassium 3.6 mmol/L (3.3-5.1)
[2025-08-27 08:20] VITALS: BP 148/96; PULSE 87; RESP 18; TEMP 36.4; O2SAT 100
--- NOTE | 2025-08-27 08:47 | PN.HOSP_ITS ---
Reason for Visit Chief Complaint: General malaise Subjective Subjective Feeling well. Complains of redness along right flank. Objective Data Objective Data Vital Signs: Vital Signs Temp Pulse Resp BP Pulse Ox O2 Del Method 36.4 C L 87 18 148/96 H 100 Room Air 08/27/25 08:20 08/27/25 08:20 08/27/25 08:20 08/27/25 08:20 08/27/25 08:20 08/27/25 08:20 Oxygen Delivery Method Room Air Weight: 95.5 kg Body Mass Index (BMI) 35.0 Intake & Output: Intake and Output for Last 24 Hours 08/25/25 08/26/25 08/27/25 23:59 23:59 23:59 Intake Total 2550 / 2550 1100 / 1100 Output Total 550 / 550 Balance 2550 / 2400 550 / 550 Lab / Micro Data 08/27/25 07:10 08/27/25 07:10 Labs: Laboratory Results - last 24 hr 08/26/25 15:25: WBC 14.8 H, RBC 4.75, Hgb 11.4 L, Hct 36.8 L, MCV 77.5 L, MCH 24.0 L, MCHC 31.0 L, RDW Std Deviation 50.2 H, RDW Coeff of Anurag 18.1 H, Plt Count TNP, MPV TNP, Immature Gran % (Auto) 0.700, Neut % (Auto) 83.2 H, Lymph % (Auto) 12.3 L, [place] % (Auto) 3.1, Eos % (Auto) 0.1, Baso % (Auto) 0.6, Absolute Neuts (auto) 12.3 H, Absolute Lymphs (auto) 1.81, Nucleated RBC % 0, Differential Comment SCANNED, Platelet Estimate SLT INC, PT 15.1 H, INR 1.2, A PTT 21.3 L, Sodium 133, Potassium 5.4 H, Chloride 104, Carbon Dioxide 13.3 L, A nion Gap 16 H, BUN 21 H, Creatinine 0.88, Estim Creat Clear Calc 115.62, Est GFR (MDRD) Non-Af 95, BUN/Creatinine Ratio 23.6 H, Glucose 95, Lactic Acid 1.2, Calcium 8.7, Total Bilirubin 0.66, AST 47 H, ALT 36 H, Alkaline Phosphatase 112 H, Total Protein 7.4, Albumin 3.0 L, Globulin 4.4 H, Albumin/Globulin Ratio 0.7 L 08/26/25 17:02: Urine Color Yellow, Urine Clarity Turbid, Urine pH 8.0, Ur Specific [place] 1.015, Urine Protein 100 H, Urine Glucose (UA) Normal, Urine Ketones 15 H, Urine Occult Blood 250 H, Urine Nitrite Positive H, Urine Bilirubin 1 H, Urine Urobilinogen 4 H, Ur Leukocyte Esterase 500 H, Urine RBC 25-50 SEEN, Urine WBC >100 SEEN, Ur Squamous Epith Cells 0-5 SEEN, Urine Bacteria 3+, Urine Mucus 0 SEEN 08/27/25 07:10: WBC 13.5 H, RBC 4.14 L, Hgb 10.1 L, Hct 31.2 L, MCV 75.4 L, MCH 24.4 L, MCHC 32.4, RDW Std Deviation 49.7 H, RDW Coeff of Anurag 18.5 H, Plt Count 279, MPV 10.5, Immature Gran % (Auto) 0.700, Neut % (Auto) 77.7 H, Lymph % (Auto) 15.3 L, [place] % (Auto) 4.6, Eos % (Auto) 1.3, Baso % (Auto) 0.4, Absolute Neuts (auto) 10.5 H, Absolute Lymphs (auto) 2.06, Nucleated RBC % 0, Sodium 135, Potassium 3.6, Chloride 107, Carbon Dioxide 14.7 L, Anion Gap 13, BUN 19, Creatinine 0.72, Estim Creat Clear Calc 140.08, Est GFR (MDRD) Non-Af 121, B UN/Creatinine Ratio 26.6 H, Glucose 114 H, Calcium 8.3, Total Bilirubin 0.37, AST 32, ALT 33, Alkaline Phosphatase 104, Total Protein 6.7, Albumin 2.8 L, Globulin 3.9, Albumin/Globulin Ratio 0.7 L, TSH 2.280 Micro: Microbiology 08/26/25 15:20 Mucosa - Nose SARS-CoV-2, Influenza & RSV (PCR) - Final Radiography Diagnostic Testing: Radiology Impression Chest X-Ray 08/26/25 15:00 IMPRESSION: No Acute Findings. Reading Location: [id number] Physical Exam Const alert and no apparent distress HEENT head/scalp atraumatic and moist oral mucous membranes Resp normal respiratory effort and no retractions GI normal to inspection, nondistended, normoactive bowel sounds and soft to palpation GI Narrative: suprapubic catheter site intact. Skin Skin Narrative: extensive erythema along right flank and upper thigh. superficial ulceration of right breast. slight candidiasis. Assessment & Plan Assessment/Plan (1) Abdominal wall cellulitis: (2) Urinary tract infection: PLAN: Plan CAUTI and cellulitis w sepsis. * SIRS 4/4 positive on admission (refer to admission labs and vitals for details. qSOFA 2. No end organ dysfunction. * on meropenem. Right abdominal wall cellulitis * meropenem * extensive, concern for GPO, so will add linezolid (vancomycin allergy) Paraplegia * Supportive care-Continue baclofen Depression/anxiety-hold SSRI while on linezolid. DVT ppx: Lovenox subcu Discussed with family at bedside Charges/Coding Visit Charges Inpatient E&M: 86529 Subs Hosp L2
[2025-08-27] MEDS: Aspirin E.C. 81 MG Tablet PO (09:47)
[2025-08-27] MEDS: Linezolid 600 MG 600 MG/300 ML BAG 200 MG IV ×2 (13:52→21:36)
[2025-08-27 15:00] VITALS: BP 99/54; PULSE 82; RESP 18; TEMP 36.5; O2SAT 100
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
[2025-08-27 21:30] VITALS: BP 113/60; PULSE 86; RESP 16; TEMP 36.6; O2SAT 96
[2025-08-28 02:59] VITALS: BP 95/52; PULSE 71; RESP 16; TEMP 36.7; O2SAT 99
[2025-08-28] MEDS: Meropenem 1 GM in 0.9% Normal Saline (100mL MB+) 100 ML IV ×3 (06:07→22:59)
[2025-08-28 06:10] VITALS: BP 125/69; PULSE 90; RESP 18; TEMP 36.6; O2SAT 99
[2025-08-28 07:23] LABS: Hematocrit 35.2 % (37-47); Hemoglobin 11.1 g/dL (12.0-15.0); Immature Granulocytes Count 0.050 X10^3/uL (0.0-0.0); Mean Corp Hgb Conc 31.5 g/dL (32-36); Mean Corpuscular Volume 75.9 fL (81-99); Mean Platelet Vol. 10.1 fl (6.2-12.0); NRBC Flagged by Analyzer 0 % (0-5); Platelet Count 238 K/mm3 (150-450); RBC Distribution Width CV 18.9 % (11.6-14.6); RBC Distribution Width SD 51.2 fl (35.1-43.9); Red Blood Count 4.64 M/mm3 (4.2-5.4); White Blood Count 10.4 K/mm3 (4.4-11.0)
[2025-08-28 07:38] LABS: Anion Gap 12 (5-15); BUN 17 mg/dL (4-19); BUN/Creat Ratio 28.9 RATIO (10-20); Calcium,Total 8.3 mg/dL (7.6-11.0); Carbon Dioxide 15.9 mmol/L (21.0-32.0); Chloride 109 mmol/L (98-108); Estimated Creatinine Clearance 170.94 ml/min (50-250); Glucose 81 mg/dL (70-99); Potassium 4.8 mmol/L (3.3-5.1)
[2025-08-28] MEDS: Aspirin E.C. 81 MG Tablet PO (08:50)
[2025-08-28] MEDS: Linezolid 600 MG 600 MG/300 ML BAG 200 MG IV ×2 (08:51→20:46)
[2025-08-28 09:00] VITALS: BP 131/78; PULSE 87; RESP 18; TEMP 36.7; O2SAT 100
--- NOTE | 2025-08-28 09:16 | PN.HOSP_ITS ---
Reason for Visit Chief Complaint: General malaise Subjective Subjective Per nursing, patient developed red patches over her body. Her and her arms. Patient denies any itching with that. Objective Data Objective Data Vital Signs: Vital Signs Temp Pulse Resp BP Pulse Ox O2 Del Method 36.6 C 90 18 125/69 H 99 Room Air 08/28/25 06:10 08/28/25 06:10 08/28/25 06:10 08/28/25 06:10 08/28/25 06:10 08/28/25 07:42 Oxygen Delivery Method Room Air Weight: 95.5 kg Body Mass Index (BMI) 35.0 Intake & Output: Intake and Output for Last 24 Hours 08/26/25 08/27/25 08/28/25 23:59 23:59 23:59 Intake Total 2550 / 2550 2500 / 2500 1100 / 1100 Output Total 1150 / 1950 1100 / 1100 Balance 2550 / 2400 1350 / 550 0 / 0 Lab / Micro Data 08/28/25 07:05 08/28/25 07:05 Labs: Laboratory Results - last 24 hr 08/28/25 07:05: WBC 10.4, RBC 4.64, Hgb 11.1 L, Hct 35.2 L, MCV 75.9 L, MCH 23.9 L, MCHC 31.5 L, RDW Std Deviation 51.2 H, RDW Coeff of Anurag 18.9 H, Plt Count 238, MPV 10.1, Immature Gran % (Auto) 0.500, Neut % (Auto) 65.6, Lymph % (Auto) 25.5, [place] % (Auto) 6.3, Eos % (Auto) 1.7, Baso % (Auto) 0.4, Absolute Neuts (auto) 6.8, Absolute Lymphs (auto) 2.65, Nucleated RBC % 0, Sodium 137, Potassium 4.8, Chloride 109 H, Carbon Dioxide 15.9 L, Anion Gap 12, BUN 17, C reatinine 0.59 L, Estim Creat Clear Calc 170.94, Est GFR (MDRD) Non-Af 130, B UN/Creatinine Ratio 28.9 H, Glucose 81, Calcium 8.3 Micro: Microbiology 08/26/25 17:02 Urine, Clean Catch Urine Culture - Preliminary Alpha Hemolytic Streptococcus GNR 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 09/26/25 15:20 Mucosa - Nose SARS-CoV-2, Influenza & RSV (PCR) - Final Physical Exam Const alert and no apparent distress HEENT head/scalp atraumatic and moist oral mucous membranes Resp normal respiratory effort, no retractions and no use of accessory muscles Cardio regular rate, regular rhythm, S1 normal heart sound and S2 normal heart sound GI normal to inspection, nondistended, normoactive bowel sounds, soft to palpation, non-tender and non-distended Skin Skin Narrative: Patient has some areas on her arms that are demarcated presumably where the redness was but I will see any of that redness at this time. The area over her right hip without line of demarcation peers to be slightly withdrawn by about 1 to 2 cm parts. No induration appreciated. Neuro Sensorium / Orientation: awake and alert Assessment & Plan Assessment/Plan (1) Abdominal wall cellulitis: (2) Urinary tract infection: PLAN: Plan CAUTI and cellulitis w sepsis. * SIRS 4/4 positive on admission (refer to admission labs and vitals for details. qSOFA 2. No end organ dysfunction. * on meropenem. * UCx showing alpha hemolytic strep and GNR. * Unclear patient does actually have a urinary tract infection despite the organisms. Low CFU's and polymicrobial, therefore suggesting colonization rather than true infection. I think she may have had more infectious type symptoms due to the cellulitis that may have not been initially present when she arrived rather than a urinary tract infection. Right abdominal wall cellulitis * meropenem * extensive, concern for GPO, so will add linezolid (vancomycin allergy) * Given the questionable UTI and the cellulitis, will consult infectious disease for further input. Upper extremity erythema * Demarcated by nursing but I did not see anything to suggest any kind of drug rash or cellulitis or any other cutaneous issues. Unclear what to make at this time other than we will just continue to observe. * Additionally patient does not have any peripheral eosinophilia to suggest drug reaction at this time. Paraplegia * Supportive care-Continue baclofen Depression/anxiety-hold SSRI while on linezolid. DVT ppx: Lovenox subcu Charges/Coding Visit Charges Inpatient E&M: 09506 Subs Hosp L2
[2025-08-28 15:00] VITALS: BP 114/60; PULSE 80; RESP 18; TEMP 36.6; O2SAT 99
[2025-08-28 21:00] VITALS: BP 145/90; PULSE 99; RESP 16; TEMP 36.8; O2SAT 97
[2025-08-29 03:00] VITALS: BP 120/74; PULSE 99; RESP 18; TEMP 36.6; O2SAT 97
[2025-08-29] MEDS: 0.9% Normal Saline (250mL Bag) 250 ML 15 ML IV (05:43)
[2025-08-29] MEDS: Meropenem 1 GM in 0.9% Normal Saline (100mL MB+) 100 ML IV ×3 (05:43→23:08)
[2025-08-29] MEDS: 0.9% Saline Lock 10 ML Syringe IV ×2 (05:43→23:05)
[2025-08-29 06:49] LABS: Hematocrit 30.1 % (37-47); Hemoglobin 9.6 g/dL (12.0-15.0); Immature Granulocytes Count 0.070 X10^3/uL (0.0-0.0); Mean Corp Hgb Conc 31.9 g/dL (32-36); Mean Corpuscular Volume 74.5 fL (81-99); Mean Platelet Vol. 9.9 fl (6.2-12.0); NRBC Flagged by Analyzer 0 % (0-5); Platelet Count 385 K/mm3 (150-450); RBC Distribution Width CV 18.3 % (11.6-14.6); RBC Distribution Width SD 49.0 fl (35.1-43.9); Red Blood Count 4.04 M/mm3 (4.2-5.4); White Blood Count 9.8 K/mm3 (4.4-11.0)
[2025-08-29 07:42] LABS: Anion Gap 12 (5-15); BUN 12 mg/dL (4-19); BUN/Creat Ratio 18.4 RATIO (10-20); Calcium,Total 8.4 mg/dL (7.6-11.0); Carbon Dioxide 21.1 mmol/L (21.0-32.0); Chloride 109 mmol/L (98-108); Estimated Creatinine Clearance 152.81 ml/min (50-250); Glucose 89 mg/dL (70-99); Potassium 3.9 mmol/L (3.3-5.1)
[2025-08-29 09:01] VITALS: BP 153/106; PULSE 79; RESP 16; TEMP 36.5; O2SAT 98
[2025-08-29] MEDS: Aspirin E.C. 81 MG Tablet PO (09:03)
[2025-08-29] MEDS: Linezolid 600 MG 600 MG/300 ML BAG 200 MG IV (12:52)
--- NOTE | 2025-08-29 14:48 | CON.PCM.ID_ITS ---
Assessment & Plan Assessment/Plan (1) Chronic indwelling Ma catheter: (2) Quadriplegia: (3) Abdominal wall cellulitis: PLAN: Ucx with aeromonas and ecoli. Cellulitis improved. Wbc now normalized, feeling better. On linezolid and meropenem. Is on methenamine for chronic uti prevention. Will stop linezolid today given nonpurulent cellulitis. Likely can go home on short course po levaquin. EKG here showed qtc 425. Will follow, thank you (4) Urinary tract infection: HPI Consult Data Date of Consult: 08/29/25 HPI Narrative Reason for Consultation: cellulitis HPI Narrative: KIERRA NARANJO, is a 24 F with h/o paraplegia, presented 08/26 with several day fatigue, chills, not feeling well. Denies any urine changes. Found to have redness in R abd wall. Admitted on meropenem for suspected uti and cellulitis. Linezolid added due to ongoing rash on abd and arms. Today feeling better, redness much improved. No fever. No n/v. Full ROS performed and neg except as noted above. FOR[facility]LY [facility] Medical History Chronic indwelling Ma catheter Paraplegia, complete Postoperative hypotension Anxiety Uses wheelchair Anemia Pressure ulcer Leukocytosis Thrombocytosis Microcytic anemia Stage IV pressure ulcer of sacral region Complication of indwelling urinary catheter Quadriplegia Purple urine bag syndrome Acute osteomyelitis of sacrum Neurogenic bladder Urinary retention Depression Seizures Indwelling urethral catheter present Former smoker Ureteral calculus Autonomic dysreflexia Paraplegic spinal paralysis Urinary tract infection Neck fracture Single kidney Double uterus Home Medications ?Medication ?Instructions ?Recorded ?Last Taken ?Type aspirin 81 mg tablet,delayed 81 mg PO DAILY heart heal th 07/17/21 08/26/25 History release baclofen 20 mg tablet 40 mg PO BID muscle spasms 0 07/17/21 08/26/25 History cholecalciferol (vitamin D3) 25 25 mcg PO DAILY supple ment 07/17/21 08/26/25 History mcg (1,000 unit) capsule (Vitamin D3) docusate sodium 100 mg capsule 100 mg PO TID PRN stool softener 07/17/21 10/27/22 08:00 History escitalopram oxalate 20 mg tablet 20 mg PO DAILY depre ssion 07/17/21 08/26/25 History nitroglycerin 2 % transdermal 1 inch transdermal PRN P RN 07/17/21 Unknown History ointment autonomic dysreflexia methenamine hippurate 1 gram 1 g PO Q12H UTI preventio n 09/12/22 08/26/25 History tablet (Hiprex) ondansetron 4 mg disintegrating 8 mg (2 x 4 mg) PO Q8H PRN PRN 08/23/23 08/26/25 Rx tablet Nausea #20 tabs acetic acid 0.25 % irrigation 1,000 ml irrigation KANA Y wounds 10/25/24 Unknown Rx solution #6,000 mL ascorbic acid (vitamin C) 500 mg 500 mg PO QODAY suppl ement 08/26/25 08/26/25 History tablet ferrous sulfate 325 mg (65 mg 325 mg PO QODAY suppleme nt 08/26/25 Unknown History iron) tablet (FeroSul) folic acid 1 mg tablet 1 mg PO DAILY supplement Unknown History hydroxyzine HCl 50 mg tablet 50 mg PO QHS PRN PRN anxi ety 08/26/25 08/26/25 History nystatin 100,000 unit/gram topical 1 applic topical BI D PRN PRN rash 08/26/25 Unknown History powder tizanidine 4 mg tablet 4 mg PO BID muscle relaxant 08/26/25 08/26/25 History Allergy/AdvReac Type Severity Reaction Status Date / Time vancomycin Allergy Severe Other Verified 08/26/25 15:04 Surgical History History of tracheostomy History of urostomy History of cystoscopy History of colectomy History of urethral stent S/P cervical spinal fusion H/O thumb surgery Social History household members: family Smoking Status: Former smoker alcohol intake: never substance use type: does not use Physical Exam Const alert, oriented x3 and no apparent distress General Appearance: cooperative HEENT normocephalic and head/scalp atraumatic Eyes PERRL and EOMs intact bilaterally Neck supple and No nodes Resp normal air movement and clear to auscultation bilaterally Cardio regular rate and regular rhythm GI soft to palpation, non-tender and non-distended Extremity General Extremity: edema Skin Skin Narrative: fading erythema on arms and trunk Neuro CN's II-XII intact bilaterally Neuro Narrative: incomplete paraplegia Lab / Micro Data Attestation: I reviewed the patient's lab results. 08/29/25 06:34 08/29/25 06:34 Labs: Laboratory Results - last 24 hr 08/29/25 06:34: WBC 9.8, RBC 4.04 L, Hgb 9.6 L, Hct 30.1 L, MCV 74.5 L, MCH 23.8 L, MCHC 31.9 L, RDW Std Deviation 49.0 H, RDW Coeff of Anurag 18.3 H, Plt Count 385, MPV 9.9, Immature Gran % (Auto) 0.700, Neut % (Auto) 69.0, Lymph % (Auto) 22.0, Spink % (Auto) 5.2, Eos % (Auto) 2.7, Baso % (Auto) 0.4, Absolute Neuts (auto) 6.7, Absolute Lymphs (auto) 2.15, Nucleated RBC % 0, Sodium 142, Potassium 3.9, Chloride 109 H, Carbon Dioxide 21.1, Anion Gap 12, BUN 12, C reatinine 0.66 L, Estim Creat Clear Calc 152.81, Est GFR (MDRD) Non-Af 127, BUN/Creatinine Ratio 18.4, Glucose 89, Calcium 8.4 Micro: Microbiology 08/26/25 15:47 Blood Culture (Wb) - Chest Blood Culture - Preliminary No growth in 48 hours. 08/26/25 17:02 Urine, Clean Catch Urine Culture - Final Aerococcus urinae Escherichia coli 08/26/25 15:20 Blood Culture (Wb) - Chest Blood Culture - Preliminary No growth in 48 hours.
[2025-08-29 15:00] VITALS: BP 136/103; PULSE 98; RESP 16; TEMP 36.5; O2SAT 100
--- NOTE | 2025-08-29 16:40 | PN_ITS ---
Subjective Subjective Patient seen and examined. She had no active complaints. She denied any fever or chills, nausea or vomiting. I saw her with her nurse by her bedside. She still has the redness over her abdomen. Review of systems otherwise negative. She has remained hemodynamically stable. Objective Data Objective Data Vital Signs: Vital Signs Temp Pulse Resp BP Pulse Ox O2 Del Method 97.7 F L 98 16 136/103 H 100 Room Air 08/29/25 15:00 08/29/25 15:00 08/29/25 15:00 08/29/25 15:00 08/29/25 15:00 08/29/25 15:00 Oxygen Delivery Method Room Air Weight: 210 lb 8.663 oz Body Mass Index (BMI) 35.0 Intake & Output: Intake and Output for Last 24 Hours 08/27/25 08/28/25 08/29/25 23:59 23:59 23:59 Intake Total 2500 / 2500 2790 / 2790 921.5 / 921.5 Output Total 1150 / 1950 2200 / 2200 400 / 400 Balance 1350 / 550 590 / 590 521.5 / 521.5 Lab / Micro Data 08/29/25 06:34 08/29/25 06:34 Labs: Laboratory Results - last 24 hr 08/29/25 06:34: WBC 9.8, RBC 4.04 L, Hgb 9.6 L, Hct 30.1 L, MCV 74.5 L, MCH 23.8 L, MCHC 31.9 L, RDW Std Deviation 49.0 H, RDW Coeff of Anurag 18.3 H, Plt Count 385, MPV 9.9, Immature Gran % (Auto) 0.700, Neut % (Auto) 69.0, Lymph % (Auto) 22.0, Dale % (Auto) 5.2, Eos % (Auto) 2.7, Baso % (Auto) 0.4, Absolute Neuts (auto) 6.7, Absolute Lymphs (auto) 2.15, Nucleated RBC % 0, Sodium 142, Potassium 3.9, Chloride 109 H, Carbon Dioxide 21.1, Anion Gap 12, BUN 12, C reatinine 0.66 L, Estim Creat Clear Calc 152.81, Est GFR (MDRD) Non-Af 127, BUN/Creatinine Ratio 18.4, Glucose 89, Calcium 8.4 Micro: Microbiology 08/26/25 15:47 Blood Culture (Wb) - Chest Blood Culture - Preliminary No growth in 48 hours. 08/26/25 17:02 Urine, Clean Catch Urine Culture - Final Aerococcus urinae Escherichia coli 08/26/25 15:20 Blood Culture (Wb) - Chest Blood Culture - Preliminary No growth in 48 hours. 08/26/25 15:20 Mucosa - Nose SARS-CoV-2, Influenza & RSV (PCR) - Final Physical Exam Const alert, oriented x3 and no apparent distress Constitutional Narrative: Class I obesity. General Appearance: cooperative HEENT normocephalic, head/scalp atraumatic, moist oral mucous membranes and oropharynx normal Eyes EOMs intact bilaterally Neck no lymphadenopathy and supple Lymph Lymphatic: no lymphedema noted Resp normal respiratory effort, normal air movement and clear to auscultation bilaterally Cardio regular rate, regular rhythm, S1 normal heart sound, S2 normal heart sound and no murmurs GI normal to inspection, nondistended, normoactive bowel sounds and soft to palpation GI Narrative: Has colostomy bag which contains soft stool. Extremity no clubbing, cyanosis or edema General Extremity: no tenderness to palpation of joints or extremities Skin Skin Narrative: Has an erythematous rash over her right lower abdomen extending from the umbilicus to the right flank. Minimal differential warmth. Neuro CN's II-XII intact bilaterally Neuro Narrative: has chronic uadriplegia Motor Exam: general weakness Psych cooperative Appearance: appropriate Assessment & Plan Assessment/Plan (1) Quadriplegia: (2) Fever: (3) Abdominal wall cellulitis: PLAN: Plan #Abdominal wall cellulitis * Still has erythema over her right lower abdomen. On IV meropenem. * Will monitor for improvement. Also on linezolid. #Catheter associated UTI * Urine cultures growing alpha hemolytic strep and gram-negative rods. * On IV meropenem and linezolid. ID on board. Linezolid discontinued by ID today #History of paraplegia: Has colostomy bag in place. On baclofen Depression and anxiety: SSRI held was on methadone DVT prophylaxis: Lovenox Charges/Coding Visit Charges Inpatient E&M: 46663 Subs Hosp L2
[2025-08-29 23:50] VITALS: BP 151/100; PULSE 71; RESP 18; TEMP 36.7; O2SAT 98
[2025-08-30 03:35] VITALS: BP 151/96; PULSE 82; RESP 16; TEMP 36.6; O2SAT 95
[2025-08-30] MEDS: 0.9% Saline Lock 10 ML Syringe IV (05:17)
[2025-08-30 05:27] LABS: Hematocrit 28.6 % (37-47); Hemoglobin 9.2 g/dL (12.0-15.0); Immature Granulocytes Count 0.050 X10^3/uL (0.0-0.0); Mean Corp Hgb Conc 32.2 g/dL (32-36); Mean Corpuscular Volume 74.3 fL (81-99); Mean Platelet Vol. 9.1 fl (6.2-12.0); NRBC Flagged by Analyzer 0 % (0-5); Platelet Count 400 K/mm3 (150-450); RBC Distribution Width CV 18.3 % (11.6-14.6); RBC Distribution Width SD 48.4 fl (35.1-43.9); Red Blood Count 3.85 M/mm3 (4.2-5.4); White Blood Count 7.2 K/mm3 (4.4-11.0)
[2025-08-30 06:04] LABS: Anion Gap 11 (5-15); BUN 9 mg/dL (4-19); BUN/Creat Ratio 16.7 RATIO (10-20); Calcium,Total 8.6 mg/dL (7.6-11.0); Carbon Dioxide 25.3 mmol/L (21.0-32.0); Chloride 108 mmol/L (98-108); Estimated Creatinine Clearance 183.38 ml/min (50-250); Glucose 87 mg/dL (70-99); Potassium 3.7 mmol/L (3.3-5.1)
[2025-08-30] MEDS: Meropenem 1 GM in 0.9% Normal Saline (100mL MB+) 100 ML IV (06:04)
[2025-08-30 09:32] VITALS: BP 152/89; PULSE 92; RESP 17; TEMP 36.5; O2SAT 97
[2025-08-30] MEDS: Aspirin E.C. 81 MG Tablet PO (09:40)
--- NOTE | 2025-08-30 10:02 | PCM.PN.ID ---
Physical Exam Narrative Feeling better, rash improving, no fever, no abd pain Const alert and no apparent distress General Appearance: cooperative Resp normal air movement and clear to auscultation bilaterally Cardio regular rate and regular rhythm GI soft to palpation, non-tender and non-distended Skin Skin Narrative: fading redness on R side abd ID ID: Route of nutrition/ use of supplements: [] Nutritional Intake: [] IV Site: [] Ma Catheter: [] Assessment & Plan Assessment/Plan (1) Chronic indwelling Ma catheter: (2) Quadriplegia: (3) Abdominal wall cellulitis: PLAN: Ucx with aeromonas and ecoli. Cellulitis improved. Wbc now normalized, feeling better. On linezolid and meropenem. Is on methenamine for chronic uti prevention. Will narrow to ceftriaxone. Ok for home with po cefdinir 300mg bid for 5 more days. Will follow as needed, thank you (4) Urinary tract infection:
--- NOTE | 2025-08-30 11:28 | WOUNDNOTE ---
wound photo: sacrum
[2025-08-30] MEDS: Ceftriaxone 2 GM in 0.9% Normal Saline (50mL MB+) 50 ML IV (12:01)
--- NOTE | 2025-08-30 12:05 | DS.PCM_ITS ---
Providers Date of Admission: 08/26/25 Date of Discharge: 08/30/25 Primary Care Physician: Dr. Dao Paulino MD Consultations 08/27/25 11:07 Consult: Onc/Wound/assistant prosecuting attorney Routine Comment: 08/28/25 13:06 Consult: Infectious Disease Routine Consulting Provider: Joseph Nguyen Reason for Consult: cellulitis. UTI. EMERGENT Consult: No MD Notified: Yes Date Notified: 08/29/25 Time Notified: 06:43 Method of Notification: Text Reason For Visit: CELLULITIS Diagnosis Discharge Diagnosis (1) Chronic indwelling Ma catheter: Status: Chronic Code(s): Z97.8 - Presence of other specified devices (2) Quadriplegia: Status: Acute Code(s): G82.50 - Quadriplegia, unspecified (3) Abdominal wall cellulitis: Status: Acute Code(s): L03.311 - Cellulitis of abdominal wall (4) Urinary tract infection: Status: Acute Code(s): N39.0 - Urinary tract infection, site not specified Plan #Abdominal wall cellulitis * Still has erythema over her right lower abdomen. On IV meropenem. * Will monitor for improvement. Also on linezolid. #Catheter associated UTI * Urine cultures growing alpha hemolytic strep and gram-negative rods. * On IV meropenem and linezolid. ID on board. Linezolid discontinued by ID today #History of paraplegia: Has colostomy bag in place. On baclofen Depression and anxiety: SSRI held was on methadone DVT prophylaxis: Lovenox Medications at Discharge Home Medications aspirin 81 mg tablet,delayed release 81 mg PO DAILY heart health 07/17/21 baclofen 20 mg tablet 40 mg PO BID muscle spasms 07/17/21 cholecalciferol (vitamin D3) 25 mcg (1,000 unit) capsule (Vitamin D3) 25 mcg PO DAILY supplement 07/17/21 docusate sodium 100 mg capsule 100 mg PO TID PRN stool softener 07/17/21 escitalopram oxalate 20 mg tablet 20 mg PO DAILY depression 07/17/21 nitroglycerin 2 % transdermal ointment 1 inch transdermal PRN PRN autonomic dysreflexia 07/17/21 methenamine hippurate 1 gram tablet (Hiprex) 1 g PO Q12H UTI prevention 09/12/22 ondansetron 4 mg disintegrating tablet 8 mg (2 x 4 mg) PO Q8H PRN PRN Nausea #20 tabs 08/23/23 acetic acid 0.25 % irrigation solution 1,000 ml irrigation DAILY wounds #6,000 mL 10/25/24 ascorbic acid (vitamin C) 500 mg tablet 500 mg PO QODAY supplement 08/26/25 ferrous sulfate 325 mg (65 mg iron) tablet (FeroSul) 325 mg PO QODAY supplement 08/26/25 folic acid 1 mg tablet 1 mg PO DAILY supplement 08/26/25 hydroxyzine HCl 50 mg tablet 50 mg PO QHS PRN PRN anxiety 08/26/25 nystatin 100,000 unit/gram topical powder 1 applic topical BID PRN PRN rash 08/26/25 tizanidine 4 mg tablet 4 mg PO BID muscle relaxant 08/26/25 cefdinir 300 mg capsule 300 mg PO BID #10 caps 08/30/25 Hospital Course Operations None Procedures None Summary of Care Provided Minutes Spent on Discharge: 45 Hospital Course: Patient is a 24-year-old female with past medical history as outlined including paraplegia with neurogenic bladder and chronic indwelling Ma catheter who presented via the ED on 08/26/2025 with a complaint of generalized feeling of unwellness for few days prior to admission. She was febrile and tachycardic and WBC was 14.8. Urinalysis was suggestive of UTI and she also had left abdominal wall cellulitis. She was admitted to be managed for UTI and left-sided abdominal wall cellulitis. She was started on broad-spectrum antibiotics. ID was consulted. Urine cultures grew Aeromonas and E. coli. Cellulitis improved and she felt better. She was subsequently placed on IV linezolid and meropenem. The redness improved and patient felt better. She was transition to ceftriaxone and was discharged home on p.o. cefdinir for 5 days on 08/30/2025. She is follow-up with her primary care doctor within 1 to 2 weeks. Patient seen and examined prior to discharge. She was lying comfortably in bed and had no active complaints. She felt ready to be discharged home. Review of systems otherwise negative. Labs and vitals reviewed. Home medication reviewed and reconciled. Physical Exam Const alert, oriented x3 and no apparent distress Constitutional Narrative: Class I obesity. General Appearance: cooperative and comfortable HEENT normocephalic, head/scalp atraumatic, hearing grossly normal bilaterally, moist oral mucous membranes and oropharynx normal Mouth: oral and palatal mucosa normal Eyes EOMs intact bilaterally and conjunctivae normal Neck supple Lymph Lymphatic: no lymphedema noted Resp normal respiratory effort, normal air movement, no retractions, no use of accessory muscles and clear to auscultation bilaterally Cardio regular rate, regular rhythm, S1 normal heart sound, S2 normal heart sound and no murmurs GI normal to inspection, nondistended, normoactive bowel sounds, soft to palpation, non-tender and non-distended GI Narrative: Has colostomy bag which contains soft stool. Extremity no clubbing, cyanosis or edema General Extremity: no tenderness to palpation of joints or extremities Skin Skin Narrative: Has an erythematous rash over her right lower abdomen extending from the umbilicus to the right flank which has improved markedly Neuro CN's II-XII intact bilaterally Neuro Narrative: has chronic quadriplegia Sensorium / Orientation: awake and alert Motor Exam: general weakness Psych cooperative Appearance: appropriate Weight / BMI Weight Weight: 210 lb 8.663 oz Body Mass Index (BMI) 35.0 ABG / Lab / Microbiology Data 08/30/25 05:15 08/30/25 05:15 Laboratory: Laboratory Results - last 24 hr 08/30/25 05:15: WBC 7.2, RBC 3.85 L, Hgb 9.2 L, Hct 28.6 L, MCV 74.3 L, MCH 23.9 L, MCHC 32.2, RDW Std Deviation 48.4 H, RDW Coeff of Anurag 18.3 H, Plt Count 400, MPV 9.1, Immature Gran % (Auto) 0.700, Neut % (Auto) 50.1, Lymph % (Auto) 39.4, Dougherty % (Auto) 6.3, Eos % (Auto) 3.2, Baso % (Auto) 0.3, Absolute Neuts (auto) 3.6, Absolute Lymphs (auto) 2.82, Nucleated RBC % 0, Sodium 145, Potassium 3.7, Chloride 108, Carbon Dioxide 25.3, Anion Gap 11, BUN 9, Creatinine 0.55 L, Estim Creat Clear Calc 183.38, Est GFR (MDRD) Non-Af 133, BUN/Creatinine Ratio 16.7, Glucose 87, Calcium 8.6 Microbiology: Microbiology 08/26/25 15:47 Blood Culture (Wb) - Chest Blood Culture - Preliminary No growth in 48 hours. 08/26/25 17:02 Urine, Clean Catch Urine Culture - Final Aerococcus urinae Escherichia coli 08/26/25 15:20 Blood Culture (Wb) - Chest Blood Culture - Preliminary No growth in 48 hours. 08/26/25 15:20 Mucosa - Nose SARS-CoV-2, Influenza & RSV (PCR) - Final D/C Instructions Discharge Activity: Return to Normal Activity Weight Bearing Status: Weight bearing as tolerated Call your doctor if you observe: Fever of 101 or Higher, Shortness of breath, Dizziness, Chest pain and Increased palpitations (irregular heartbeat) DC O2, CPAP, BIPAP Needs Home O2 Discharge instructions: No DC home with Oxygen: No Meaningful Use Info Meaningful Use Meaningful Use Diagnoses (Choose all that apply): None applicable Discharge Plan Admission Admit Date/Time: 08/26/25 19:12 Primary Reason for Your Visit: abdominal wall cellulitis Attending Provider: Carol Ferrer Primary Care Provider: Dao Paulino Consulting Providers: Vitaliy Melendez; Lele Alcantara; Joseph Nguyen Instructions Patient Instructions: Cellulitis Discharge Orders/Prescriptions Prescriptions: New cefdinir 300 mg capsule 300 mg PO BID Qty: 10 0RF Continued aspirin 81 mg Tablet,Delayed Release (Dr/Ec) 81 mg PO DAILY baclofen 20 mg Tablet 40 mg PO BID nitroglycerin 2 % Ointment 1 inch TRANSDERMAL PRN PRN (Reason: autonomic dysreflexia) cholecalciferol (vitamin D3) [Vitamin D3] 25 mcg (1,000 unit) Capsule 25 mcg PO DAILY docusate sodium 100 mg Capsule 100 mg PO TID PRN (Reason: stool softener) escitalopram oxalate 20 mg Tablet 20 mg PO DAILY methenamine hippurate [Hiprex] 1 gram tablet 1 g PO Q12H Rx Instructions: can be continued indefinitely. For UTI prevention. ondansetron 4 mg tablet,disintegrating 8 mg PO Q8H PRN PRN (Reason: Nausea) Qty: 20 0RF hydroxyzine HCl 50 mg tablet 50 mg PO QHS PRN PRN (Reason: anxiety) ferrous sulfate [FeroSul] 325 mg (65 mg iron) tablet 325 mg PO QODAY nystatin 100,000 unit/gram powder 1 applic topical BID PRN PRN (Reason: rash) tizanidine 4 mg tablet 4 mg PO BID folic acid 1 mg tablet 1 mg PO DAILY Patient Comments: TAKES EVERY OTHER DAY OF 08/26/25 ascorbic acid (vitamin C) 500 mg tablet 500 mg PO QODAY acetic acid 0.25 % Solution 1,000 ml irrigation DAILY Qty: 6000 0RF Referrals / Follow Up: Dao Paulino MD [Primary Care Provider, [facility]] - 09/06/25 8:00 am Referral Note: APPOINTMENT WITH [facility] Disposition Disposition (needs filled in before D/C Order can be placed): Home Health Service Charges/Coding Visit Charges Inpatient E&M: 45806 Disch Hosp >30min
--- NOTE | 2025-08-30 12:18 | CASEMGMT ---
CONRAD TILLMAN into pt room, confirmed pt wishes to DC home with [facility]. Pt denies any additional needs at this time. Pt confirmed address for transport needs and states her mom will be home. CONRAD TILLMAN attempted to call mom, restrictions on phone will not allow call to go through. Pt denies any additional numbers to attempt in order to reach her mom. Pt states she needs to travel by cot, no steps to enter. CONRAD TILLMAN asked DC logistics and planning manager to assist with transportation set up.
--- NOTE | 2025-08-30 12:27 | CASEMGMT ---
RN CM notified physicians to picker box operator pt at 2 pm today. RN CM notified RN and Hospitalist. Updates sent to [facility] for resumption of care.
--- NOTE | 2025-08-30 12:48 | CASEMGMT ---
CONRAD TILLMAN received note from [facility], unable to get a hold of Pt or mom due to restrictions on phone. Provided Pt with the number for [facility], pt will call them to schedule visit.
--- NOTE | 2025-08-30 12:53 | PHA.DC.MC.R ---
Pharmacy [facility] Counsel[facility] Pharm[facility] Service has performed discharge medication reconciliation and counseling for this patient. The patient's discharge medication list was reviewed for discrepancies and discrepancies were resolved. The patient was counseled on the following discharge medications and changes in medications for homegoing were reviewed. The Reason for Use, instructions for use, and potential side effects were reviewed for all new medications. The patient's questions regarding all of their medications were answered. 1. Cefdinir 300 mg PO BID x 5 days The patient was able to verbally demonstrate an understanding of their discharge medications. Medications at Discharge Home Medications aspirin 81 mg tablet,delayed release 81 mg PO DAILY heart health 07/17/21 baclofen 20 mg tablet 40 mg PO BID muscle spasms 07/17/21 cholecalciferol (vitamin D3) 25 mcg (1,000 unit) capsule (Vitamin D3) 25 mcg PO DAILY supplement 07/17/21 docusate sodium 100 mg capsule 100 mg PO TID PRN stool softener 07/17/21 escitalopram oxalate 20 mg tablet 20 mg PO DAILY depression 07/17/21 nitroglycerin 2 % transdermal ointment 1 inch transdermal PRN PRN autonomic dysreflexia 07/17/21 methenamine hippurate 1 gram tablet (Hiprex) 1 g PO Q12H UTI prevention 09/12/22 ondansetron 4 mg disintegrating tablet 8 mg (2 x 4 mg) PO Q8H PRN PRN Nausea #20 tabs 08/23/23 acetic acid 0.25 % irrigation solution 1,000 ml irrigation DAILY wounds #6,000 mL 10/25/24 ascorbic acid (vitamin C) 500 mg tablet 500 mg PO QODAY supplement 08/26/25 ferrous sulfate 325 mg (65 mg iron) tablet (FeroSul) 325 mg PO QODAY supplement 08/26/25 folic acid 1 mg tablet 1 mg PO DAILY supplement 08/26/25 hydroxyzine HCl 50 mg tablet 50 mg PO QHS PRN PRN anxiety 08/26/25 nystatin 100,000 unit/gram topical powder 1 applic topical BID PRN PRN rash 08/26/25 tizanidine 4 mg tablet 4 mg PO BID muscle relaxant 08/26/25 cefdinir 300 mg capsule 300 mg PO BID #10 caps 08/30/25
--- NOTE | 2025-08-30 13:33 | CASEMGMT ---
Received message from [facility], unable to get ahold of Pt. Went into Pt room, called [facility] together. Pt denies further needs at this time.
--- NOTE | 2025-08-30 14:08 | CASEMGMT ---
Discharge Planning Physicians will transport pt by cot at 2p. RN CM updated. Slime Fleming DC Planning Asst
[2025-08-30 14:34] VITALS: BP 142/87; PULSE 84; RESP 17; TEMP 36.6; O2SAT 96
== END 2025-08-30 14:44 | disposition home health service (06) | DRG 466 ==
LOC: ED 17:58 → PCU 20:05
PROVIDERS: Internal Medicine; Admitting Provider Internal Medicine; Emergency Provider Emergency Medicine; PCP Family Medicine; Visit Provider Student in an Organized Health Care Education/Training Program
DX: T83.511A Infection and inflammatory reaction due to indwelling urethral catheter, initial encounter (principal); L03.115 Cellulitis of right lower limb; G82.50 Quadriplegia, unspecified; F32.A Depression, unspecified; E66.811 Obesity, class 1; Z93.3 Colostomy status; F41.9 Anxiety disorder, unspecified; L03.311 Cellulitis of abdominal wall; N39.0 Urinary tract infection, site not specified; B96.20 Unspecified Escherichia coli [E. coli] as the cause of diseases classified elsewhere; R00.0 Tachycardia, unspecified; N31.9 Neuromuscular dysfunction of bladder, unspecified; Z68.35 Body mass index [BMI] 35.0-35.9, adult; Z79.82 Long term (current) use of aspirin; Z79.899 Other long term (current) drug therapy; Z87.891 Personal history of nicotine dependence; Y73.8 Miscellaneous gastroenterology and urology devices associated with adverse incidents, not elsewhere classified
CPT/HCPCS: 36415; 71045; 80048; 80053; 81001; 83605; 84443; 85025; 85610; 85730; 87040; 87077; 87086; 87088; 87186; 87631; 93005; 99285; J2020; J2185; A4216; J0696; J2405

== ENCOUNTER 2025-10-08 20:58 | Emergency (ER) | payer MEDICAID, SELFPAY ==
[2025-10-08 20:59] VITALS: BP 141/84; PULSE 138; RESP 18; TEMP 36.7; O2SAT 100; BMI 36.8
[2025-10-08 22:18] VITALS: BP 102/86; PULSE 138; RESP 19; O2SAT 99
[2025-10-08] MEDS: Lidocaine/Epi/Tetracaine 50 ML 1 APPLIC TOPICAL (22:57)
[2025-10-08 23:00] VITALS: BP 110/55; PULSE 112; RESP 20
[2025-10-08] MEDS: 0.9% Normal Saline (1000mL) 1,000 ML 999 ML IV (23:10)
--- NOTE | 2025-10-08 23:10 | EDS_ITS ---
HPI History of Present Illness Chief Complaint: Ma C/O Informant: patient and parent Narrative Narrative: Patient is a 24-year-old female with past medical history of paraplegia and autonomic dysreflexia. She has a chronic indwelling Ma catheter secondary to the paraplegia. Patient and mother state that it has been in for quite some time. They state it was recently charged out. They state that there has been urine leaking from the opening of the suprapubic catheter. However they also report there also is urine moving into the bag. Patient and mother also reports she has had increased sweating over the last month or so. Patient and mother state there is been no recent change to her medication. Mother reports that she is unsure if the suprapubic catheter needs replaced once again secondary to the reported leakage or if the increased sweating is due to potential infectious process and therefore the patient was brought in for evaluation [facility] Medical History Chronic indwelling Ma catheter Paraplegia, complete Postoperative hypotension Anxiety Uses wheelchair Anemia Pressure ulcer Leukocytosis Thrombocytosis Microcytic anemia Stage IV pressure ulcer of sacral region Complication of indwelling urinary catheter Quadriplegia Purple urine bag syndrome Acute osteomyelitis of sacrum Neurogenic bladder Urinary retention Depression Seizures Indwelling urethral catheter present Former smoker Ureteral calculus Autonomic dysreflexia Paraplegic spinal paralysis Urinary tract infection Neck fracture Single kidney Double uterus Home Medications Medication Instructions Recorded Last Taken Type aspirin 81 mg tablet,delayed 81 mg PO DAILY heart heal th 07/17/21 08/26/25 History release baclofen 20 mg tablet 40 mg PO BID muscle spasms 0 07/17/21 08/26/25 History cholecalciferol (vitamin D3) 25 25 mcg PO DAILY supple ment 07/17/21 08/26/25 History mcg (1,000 unit) capsule (Vitamin D3) docusate sodium 100 mg capsule 100 mg PO TID PRN stool softener 07/17/21 10/27/22 08:00 History escitalopram oxalate 20 mg tablet 20 mg PO DAILY depre ssion 07/17/21 08/26/25 History nitroglycerin 2 % transdermal 1 inch transdermal PRN P RN 07/17/21 Unknown History ointment autonomic dysreflexia methenamine hippurate 1 gram 1 g PO Q12H UTI preventio n 09/12/22 08/26/25 History tablet (Hiprex) ondansetron 4 mg disintegrating 8 mg (2 x 4 mg) PO Q8H PRN PRN 08/23/23 08/26/25 Rx tablet Nausea #20 tabs acetic acid 0.25 % irrigation 1,000 ml irrigation KANA Y wounds 10/25/24 Unknown Rx solution #6,000 mL ascorbic acid (vitamin C) 500 mg 500 mg PO QODAY suppl ement 08/26/25 08/26/25 History tablet ferrous sulfate 325 mg (65 mg 325 mg PO QODAY suppleme nt 08/26/25 Unknown History iron) tablet (FeroSul) folic acid 1 mg tablet 1 mg PO DAILY supplement Unknown History hydroxyzine HCl 50 mg tablet 50 mg PO QHS PRN PRN anxi ety 08/26/25 08/26/25 History nystatin 100,000 unit/gram topical 1 applic topical BI D PRN PRN rash 08/26/25 Unknown History powder tizanidine 4 mg tablet 4 mg PO BID muscle relaxant 08/26/25 08/26/25 History cefdinir 300 mg capsule 300 mg PO BID #10 caps 08/30 Unknown Rx nitrofurantoin 100 mg PO BID 7 days #14 cap s 10/09/25 Unknown Rx monohydrate/macrocrystals 100 mg capsule (Macrobid) Allergy/AdvReac Type Severity Reaction Status Date / Time vancomycin Allergy Severe Other Verified 08/26/25 15:04 Surgical History History of tracheostomy History of urostomy History of cystoscopy History of colectomy History of urethral stent S/P cervical spinal fusion H/O thumb surgery Social History household members: family Smoking Status: Former smoker alcohol intake: never substance use type: does not use ROS ROS ED Constitutional Constitutional ED: Reports sweats; Denies chills or fever(s) Eyes Eyes: Denies change in vision ENT ENT ED: Denies rhinorrhea or sore throat Cardiovascular Cardiovascular: Reports racing heartbeat; Denies chest pain or palpitations Respiratory/Chest Respiratory/Chest: Denies cough or dyspnea Gastrointestinal Gastrointestinal: Denies abdominal pain or vomiting Integumentary Denies rash Neurologic Neurologic: Denies headache(s) Endocrine Endocrinology: Reports other Details: Positive sweating ; Denies cold intolerance EXAM Physical Exam Const Vital Signs: 10/09/25 03:31 Temperature 97.8 F Pulse Rate 116 H Respiratory Rate 16 Blood Pressure 121/66 H Blood Pressure Mean 84 Pulse Ox 99 Positive well nourished and well developed General Appearance ED: well developed HEENT HEENT Narrative: Normocephalic atraumatic No tongue or lip swelling no oral lesions no airway edema or compromise; no secondary findings in the posterior pharynx to suggest infection Eyes PERRL and EOMs intact bilaterally General Eye ED: Negative for scleral icterus Neck supple Neck Narrative: No nuchal rigidity or meningeal signs Chest Wall palpation of chest normal Resp normal respiratory effort and clear to auscultation bilaterally Resp Narrative: Lungs are clear to auscultation throughout No nasal flaring retractions tachypnea or accessory muscle use Cardio regular rhythm Rate: tachycardic and other Other Details: Tachycardic rate with regular rhythm No murmurs rubs or gallops GI non-distended GI Narrative: There is a suprapubic catheter in place in the lower mid abdomen/suprapubic region. There is chronic excoriation around the opening without secondary findings to suggest infection. There is no active drainage from the insertion site/ostomy at this time. Auscultation: normoactive bowel sounds Palpation: soft Extremity Extremity Narrative: Patient has contractures to her arms and legs consistent with her chronic medic al history without acute traumatic findings Neuro oriented x3 and CN's II-XII intact bilaterally Neuro Narrative: Patient has chronic deficits from her history of paraplegia without new deficits present Sensorium / Orientation: alert Psych mental status grossly normal Skin Skin Narrative: Patient has chronic skin breakdown from inability to ambulate as well as contractures without secondary findings to suggest infection MDM MDM MDM Narrative Medical decision making narrative: Patient arrived to the ER tachycardic but otherwise with stable vital. They reported there has been leakage from the suprapubic site but there is urine in the catheter and bag and on my evaluation there is no leakage from the suprapubic ostomy and therefore do not feel it warrants replacement at this time. As patient has had excessive sweating over the past month mother is concerned this could be related to medication versus infection. Because of this I will check a urine sample as well as basic laboratory studies and thyroid level. Patient's white count is elevated at 14.4 which could just be related to an inflammatory process or stress response. Kidney function is normal going against acute kidney injury. Electrolytes show no clinically significant changes either. Her procalcitonin is normal at 0.6 indicating that the white blood cell count is most likely inflammatory in nature and not infectious. The urine sample does show infection but as she has a chronic indwelling Ma catheter this is most likely colonized. However with her report of increased sweating and mild leukocytosis I will send the urine for culture and start her on antibiotics in the meantime. She has had improvement of her heart rate with IV fluids she is not hypotensive she does not have any clinically significant lab changes to suggest electrolyte malfunction or acute kidney injury. The patient's sweating has stopped as well and there has been no leakage from the suprapubic catheter the entire time she has been in the ER. Therefore I do not feel she warrants admission or transfer and is otherwise safe for discharge History & Record Review Discussion w/independent historian: Patient and Family Lab Data Attestation: I reviewed the patient's lab results. Labs: Laboratory Results - last 24 hr 10/08/25 23:15 WBC 14.4 H RBC 4.71 Hgb 11.2 L Hct 36.2 L MCV 76.9 L MCH 23.8 L MCHC 30.9 L RDW Std Deviation 48.7 H RDW Coeff of Anurag 17.4 H Plt Count 477 H MPV 9.1 Immature Gran % (Auto) 0.400 Neut % (Auto) 77.6 H Lymph % (Auto) 15.7 L Pine % (Auto) 4.7 Eos % (Auto) 1.3 Baso % (Auto) 0.3 Absolute Neuts (auto) 11.2 H Absolute Lymphs (auto) 2.25 Nucleated RBC % 0 Sodium 140 Potassium 4.1 Chloride 109 H Carbon Dioxide 19.7 L Anion Gap 11 BUN 23 H Creatinine 0.68 L Estim Creat Clear Calc 152.50 Est GFR (MDRD) Non-Af 126 BUN/Creatinine Ratio 34.3 H Glucose 127 H Calcium 9.3 Magnesium 2.2 Procalcitonin 0.06 TSH 2.710 Urine Color Yellow Urine Clarity Cloudy Urine pH 6.5 Ur Specific [place] 1.020 Urine Protein 100 H Urine Glucose (UA) Normal Urine Ketones 5 H Urine Occult Blood 150 H Urine Nitrite Negative Urine Bilirubin Negative Urine Urobilinogen 1 H Ur Leukocyte Esterase 500 H Urine RBC 0-5 SEEN Urine WBC 10-25 SEEN Ur Squamous Epith Cells 0 SEEN Urine Bacteria 3+ Urine Mucus 0 SEEN Radiography Diagnostic Testing: Clinical Impression(s) from Imaging Studies Chest X-Ray 10/08/25 23:15 IMPRESSION: No evidence of acute pulmonary disease. Reading Location: [id number] Chest x-ray as interpreted by the emergency medicine physician reveals no acute infiltrate pneumothorax or pleural effusion Discharge Plan Triage Chief Complaint: Ma C/O ED Provider: Felton Garcia Dx/Rx/DC Orders Clinical Impression: Hyperhidrosis, Suprapubic catheter dysfunction, Autonomic dysreflexia, Par aplegia Instructions: Suprapubic Catheter Dc, Understanding Hyperhidrosis Prescriptions: New nitrofurantoin monohyd/m-cryst [Macrobid] 100 mg capsule 100 mg PO BID 7 Days Qty: 14 0RF Rx Instructions: must administer with a meal/food No Action aspirin 81 mg Tablet,Delayed Release (Dr/Ec) 81 mg PO DAILY baclofen 20 mg Tablet 40 mg PO BID nitroglycerin 2 % Ointment 1 inch TRANSDERMAL PRN PRN (Reason: autonomic dysreflexia) cholecalciferol (vitamin D3) [Vitamin D3] 25 mcg (1,000 unit) Capsule 25 mcg PO DAILY docusate sodium 100 mg Capsule 100 mg PO TID PRN (Reason: stool softener) escitalopram oxalate 20 mg Tablet 20 mg PO DAILY methenamine hippurate [Hiprex] 1 gram tablet 1 g PO Q12H Rx Instructions: can be continued indefinitely. For UTI prevention. ondansetron 4 mg tablet,disintegrating 8 mg PO Q8H PRN PRN (Reason: Nausea) Qty: 20 0RF hydroxyzine HCl 50 mg tablet 50 mg PO QHS PRN PRN (Reason: anxiety) ferrous sulfate [FeroSul] 325 mg (65 mg iron) tablet 325 mg PO QODAY nystatin 100,000 unit/gram powder 1 applic topical BID PRN PRN (Reason: rash) tizanidine 4 mg tablet 4 mg PO BID folic acid 1 mg tablet 1 mg PO DAILY Patient Comments: TAKES EVERY OTHER DAY OF 08/26/25 ascorbic acid (vitamin C) 500 mg tablet 500 mg PO QODAY cefdinir 300 mg capsule 300 mg PO BID Qty: 10 0RF acetic acid 0.25 % Solution 1,000 ml irrigation DAILY Qty: 6000 0RF Primary Care Provider: Dao Paulino Referrals: Fernanda Rodriguez MD [Med Staff - Active Staff, Urology] Dao Paulino MD [Primary Care Provider, Family Practice] Activity Restrictions/Additional Instructions: Please follow-up with urology to discuss further potential treatment options for the intermittent leaking from your Ma catheter. Your urine sample today did show bacteria but that could be due to colonization from the chronic indwelling Ma catheter and therefore it will be sent for culture. In the meantime we will cover you for potential infection with Macrobid/nitrofurantoin. Otherwise your labs revealed no sign of lecture abnormality thyroid dysfunction or kidney damage. Please continue all your other medication as directed by your doctor and return to the ER should you have any further concerns Print Language: Kosovan Disposition Disposition: Home, Self Care Discharge Date/Time: 10/09/25 03:43
--- NOTE | 2025-10-08 23:15 | RAD_ITS ---
PROCEDURE: CHEST 1 VIEW (PORTABLE) 10/08/2025 REASON FOR EXAM: COUGH TECHNIQUE: Frontal view of the chest. COMPARISON: 08/26/2025 FINDINGS: Devices: Right chest wall MediPort with catheter tip at the lower SVC. Lungs/Pleura: No focal consolidation, pneumothorax or sizable pleural effusion. Heart/Mediastinum: Within normal limits given technique. Bones/Soft tissues: Unremarkable. Cervical ACDF metallic hardware. RAD/Chest 1 View (Portable) IMPRESSION: No evidence of acute pulmonary disease. Reading Location: [id number]
[2025-10-08 23:20] LABS: Mucous, Urine 0 SEEN /hpf (<or=2+); Squamous Epithelial Cells - UA 0 SEEN /hpf (5-10)
[2025-10-08 23:22] LABS: Hematocrit 36.2 % (37-47); Hemoglobin 11.2 g/dL (12.0-15.0); Immature Granulocytes Count 0.060 X10^3/uL (0.0-0.0); Mean Corp Hgb Conc 30.9 g/dL (32-36); Mean Corpuscular Volume 76.9 fL (81-99); Mean Platelet Vol. 9.1 fl (6.2-12.0); NRBC Flagged by Analyzer 0 % (0-5); Platelet Count 477 K/mm3 (150-450); RBC Distribution Width CV 17.4 % (11.6-14.6); RBC Distribution Width SD 48.7 fl (35.1-43.9); Red Blood Count 4.71 M/mm3 (4.2-5.4); White Blood Count 14.4 K/mm3 (4.4-11.0)
[2025-10-08 23:24] LABS: Color, Urine Yellow (Yellow); Glucose, Dipstick Normal (Normal); Ketone-Dipstick 5 mg/dl (Negative); Leukocyte Esterase-Dipstick 500 /ul (Negative); Nitrite-Dipstick Negative (Negative); Occult Blood-Urine 150 /ul (Negative); Protein-Dipstick 100 mg/dl (Negative); Specific Gravity, Urine 1.020 (1.002-1.030); Urine Bilirubin Dipstick Negative (Negative)
[2025-10-08 23:33] LABS: Red Blood Cells-Urine 0-5 SEEN /hpf (0-5)
[2025-10-08 23:55] LABS: Anion Gap 11 (5-15); BUN 23 mg/dL (4-19); BUN/Creat Ratio 34.3 RATIO (10-20); Calcium,Total 9.3 mg/dL (7.6-11.0); Carbon Dioxide 19.7 mmol/L (21.0-32.0); Chloride 109 mmol/L (98-108); Estimated Creatinine Clearance 152.50 ml/min (50-250); Glucose 127 mg/dL (70-99); Magnesium 2.2 mg/dL (1.5-2.2); Potassium 4.1 mmol/L (3.3-5.1); Procalcitonin 0.06 ng/mL (<=0.10)
[2025-10-09] VITALS: BP 126/72; PULSE 122; RESP 23
--- NOTE | 2025-10-09 00:40 | ED.RN ---
New mepilex applied to sacral wound
[2025-10-09 03:31] VITALS: BP 121/66; PULSE 116; RESP 16; TEMP 36.6; O2SAT 99
== END 2025-10-09 03:43 | disposition home or self-care (01) ==
PROVIDERS: Emergency Provider Emergency Medicine; PCP Family Medicine; Visit Provider Emergency Medicine
DX: R61 Generalized hyperhidrosis (principal); G82.20 Paraplegia, unspecified; Z87.891 Personal history of nicotine dependence; F41.9 Anxiety disorder, unspecified; Z79.899 Other long term (current) drug therapy; F32.A Depression, unspecified; Z90.49 Acquired absence of other specified parts of digestive tract; G90.4 Autonomic dysreflexia; T83.018A Breakdown (mechanical) of other urinary catheter, initial encounter
CPT/HCPCS: 36591; 71045; 80048; 81001; 83735; 84145; 84443; 85025; 87077; 87086; 87088; 87186; 87631; 96360; 96361; 99285; A4216

== ENCOUNTER 2025-11-18 23:48 | Emergency (ER) | payer MEDICAID, SELFPAY ==
[2025-11-18 23:49] VITALS: PULSE 95; RESP 18; TEMP 36.8; O2SAT 96; BMI 36.1
--- NOTE | 2025-11-19 00:45 | RAD_ITS ---
PROCEDURE: PELVIS 1 OR 2 VIEWS 11/19/2025 REASON FOR EXAM: SUPRAPUBIC CONFIRMATION TECHNIQUE: Procedure Code: RADPEL Modality: DX Procedure: PELVIS 1 OR 2 VIEWS Isovue-300 contrast was injected in the suprapubic catheter. COMPARISON: None. FINDINGS: Suprapubic catheter is noted. The exact position of the tip of the catheter could not be confirmed on the provided image. Suspected extraluminal contrast. Findings can be better confirmed/evaluated by repeat exam with a larger amount of contrast to confirm the position of the suprapubic catheter. Dysplastic left acetabulum. Mild degenerative joint disease. There is a non-specific bowel gas pattern. Normal visualized soft tissue structures. Normal visualized sacrum, sacroiliac joints and bilateral iliac wings. Normal visualized bilateral superior and inferior pubic rami. Normal ischial tuberosities. Normal pubic symphysis. Normal visualized right femoral head. Normal right acetabulum. Normal right hip joint. RAD/Pelvis 1 or 2 Views IMPRESSION: Suprapubic catheter is noted. The exact position of the tip of the catheter could not be confirmed on the pro vided image. Suspected extraluminal contrast. Findings can be better confirmed/evaluated by repeat exam with a larger amount of contrast to confirm the position of the suprapubic catheter. CT evaluation is an alternative if clinically warranted. Dysplastic left acetabulum. Mild degenerative joint disease. Reading Location[facility] [id number]
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
--- NOTE | 2025-11-19 02:27 | CT_ITS ---
PROCEDURE: ABDOMEN/PELVIS WITHOUT CONT 11/19/2025 REASON FOR EXAM: SUPRAPUBIC CATHETER TECHNIQUE: Procedure Code: CTABDPEL Modality: CT Procedure: ABDOMEN/PELVIS WITHOUT CONT Noncontrast technique limits evaluation of the abdominal and pelvic viscera. Coronal and Sagittal reconstruction series were provided. One or more dose reduction techniques were used (e.g., Automated exposure control, adjustment of the mA and/or kV according to patient size, use of iterative reconstruction technique). RADIATION DOSE SUMMARY: CTDlvol: 21.37 MGy DLP: 1233 mGycm COMPARISON: Radiograph on 11/19/2025. CT scan on 11/14/2024. FINDINGS: LOWER CHEST: Bibasilar atelectasis. No cardiomegaly or pericardial effusion. LIVER: The liver is normal in size, shape, and attenuation. Focal fatty infiltration along the falciform. No focal mass. GALLBLADDER AND BILIARY TREE: The gallbladder is normally distended. No gallstones. No gallbladder wall thickening or edema. No pericholecystic fluid. No intra- or extrahepatic biliary ductal dilation. PANCREAS: No focal cystic or solid mass. SPLEEN: Normal size without focal cystic or solid mass. ADRENAL GLANDS: No nodules. KIDNEYS AND URETERS: Absent right kidney. Normal position of the left kidney. No hydronephrosis. Left renal nonobstructing stone measuring 3 mm. PERITONEUM: No ascites or free air. No other fluid collection. BOWEL: The stomach is unremarkable. Normal caliber small bowel. No obstruction. Left lower quadrant colostomy. No colonic wall thickening. No evidence of acute appendicitis. LYMPH NODES: No enlarged mesenteric or retroperitoneal lymph nodes. VESSELS: Aorta is non-dilated. URINARY BLADDER: Suprapubic catheter in place. Decompressed bladder. Contrast is noted in the bladder. REPRODUCTIVE ORGANS: Bicornuate uterus. No adnexal mass. ABDOMINAL WALL: Left lower quadrant colostomy. Mild anasarca/inflammation over the right hip. BONES: No lytic or blastic abnormality. Surgical resection of the coccyx, unchanged. CT/Abdomen/Pelvis without Cont IMPRESSION: Suprapubic catheter is in good position with its tip in the bladder. Contrast is noted in the bladder. No other significant interval change is noted. Reading Location[facility] [place] [id number]
--- NOTE | 2025-11-19 02:33 | EX.ED.DYSGE1 ---
HPI History of Present Illness Chief Complaint: Complaint Narrative Narrative: Patient was seen and examined after presenting to ED for displaced suprapubic catheter it has been in place for 2 years it came out tonight. [facility] Medical History Kidney stones Colostomy in place Urinary retention Chronic indwelling Ma catheter Quadriplegia Abdominal wall cellulitis Chronic indwelling Ma catheter Paraplegia, complete Postoperative hypotension Anxiety Uses wheelchair Anemia Pressure ulcer Leukocytosis Thrombocytosis Microcytic anemia Stage IV pressure ulcer of sacral region Complication of indwelling urinary catheter Quadriplegia Purple urine bag syndrome Acute osteomyelitis of sacrum Neurogenic bladder Depression Seizures Indwelling urethral catheter present Former smoker Ureteral calculus Autonomic dysreflexia Paraplegic spinal paralysis Urinary tract infection Neck fracture Single kidney Double uterus Home Medications ?Medication ?Instructions ?Recorded ?Last Taken ?Type aspirin 81 mg tablet,delayed 81 mg PO DAILY heart health 07/17/21 08/26/25 History release baclofen 20 mg tablet 40 mg PO BID muscle spasms 07/17/21 08/26/25 History cholecalciferol (vitamin D3) 25 25 mcg PO DAILY supplement 07/17/21 08/26/25 History mcg (1,000 unit) capsule (Vitamin D3) docusate sodium 100 mg capsule 100 mg PO TID PRN stool softener 07/17/21 10/27/22 08:00 History escitalopram oxalate 20 mg tablet 20 mg PO DAILY depression 07/17/21 08/26/25 History nitroglycerin 2 % transdermal 1 inch transdermal PRN PRN 07/17/21 Unknown History ointment autonomic dysreflexia methenamine hippurate 1 gram 1 g PO Q12H UTI prevention 09/12/22 08/26/25 History tablet (Hiprex) ondansetron 4 mg disintegrating 8 mg (2 x 4 mg) PO Q8H PRN PRN 08/23/23 08/26/25 Rx tablet Nausea #20 tabs acetic acid 0.25 % irrigation 1,000 ml irrigation DAILY wounds 10/25/24 Unknown Rx solution #6,000 mL ascorbic acid (vitamin C) 500 mg 500 mg PO QODAY supplement 08/26/25 08/26/25 History tablet ferrous sulfate 325 mg (65 mg 325 mg PO QODAY supplement 08/26/25 Unknown History iron) tablet (FeroSul) folic acid 1 mg tablet 1 mg PO DAILY supplement 08/26/25 Unknown History hydroxyzine HCl 50 mg tablet 50 mg PO QHS PRN PRN anxiety 08/26/25 08/26/25 History nystatin 100,000 unit/gram topical 1 applic topical BID PRN PRN rash 08/26/25 Unknown History powder tizanidine 4 mg tablet 4 mg PO BID muscle relaxant 08/26/25 08/26/25 History cefdinir 300 mg capsule 300 mg PO BID #10 caps 08/30/25 Unknown Rx nitrofurantoin 100 mg PO BID 7 days #14 caps 10/09/25 Unknown Rx monohydrate/macrocrystals 100 mg capsule (Macrobid) Allergy/AdvReac Type Severity Reaction Status Date / Time vancomycin Allergy Severe Other Verified 11/18/25 23:52 Surgical History H/O neck surgery History of tracheostomy History of urostomy History of cystoscopy History of colectomy History of urethral stent S/P cervical spinal fusion H/O thumb surgery Social History household members: family Smoking Status: Former smoker alcohol intake: never substance use type: does not use ROS ROS ED ROS Narrative Pertinent Positives: Displaced suprapubic catheter Pertinent Negatives: Abdominal pain The remainder of review of systems negative unless otherwise stated in the HPI above. Systems reviewed including constitutional, psychiatric, cardiovascular, respiratory, integument, HENT, gastrointestinal. EXAM Physical Exam Narrative Exam Narrative: Patient is afebrile hemodynamically stable does not appear toxic or in distress she has an 18 Nepali suprapubic catheter is dislodged she also has an ostomy bag. She is a paraplegic. Skin is warm and well-perfused. Const Vital Signs: 11/18/25 23:49 11/19/25 02:51 11/19/25 04:04 Temperature 98.2 F 98 F 97.5 F L Temperature Source Oral Temporal Pulse Rate 95 89 86 Respiratory Rate 18 18 18 Blood Pressure 106/57 L 102/60 Blood Pressure Mean 73 74 Pulse Ox 96 100 100 Oxygen Delivery Method Room Air MDM MDM MDM Narrative Medical decision making narrative: Nursing notes, triage notes, available previous documentation, and vital signs were reviewed. Any discrepancies noted were addressed. Interventions: Suprapubic catheter was replaced by nursing staff Imaging Reviewed: Personally reviewed and interpreted by me: Pelvis x-ray contrast was difficult to really assess where it was at however patient was having urine draining into the catheter Previous Documentation Reviewed: None available or applicable at this time. ED Course: Patient presenting with suprapubic catheter that got dislodged and was replaced by nursing staff we will have her get a CT of the abdomen pelvis because it is draining urine however the plain film of the x-ray is not convincing that it is appropriately positioned with the contrast load that was given. 0252: CT of the abdomen and pelvis it appears to show that the catheter is in appropriate position and the patient's urine is draining 0515: Official CT read shows that it is in appropriate position patient will be discharged This note was made utilizing voice recognition software. All attempts were made to correct spelling or other errors prior to note completion. However, due to the fast-paced nature of emergency medicine, some errors may still be present. Radiography Diagnostic Testing: Clinical Impression(s) from Imaging Studies Pelvis X-Ray 11/19/25 00:45 IMPRESSION: Suprapubic catheter is noted. The exact position of the tip of the catheter could not be confirmed on the provided image. Suspected extraluminal contrast. Findings can be better confirmed/evaluated by repeat exam with a larger amount of contrast to confirm the position of the suprapubic catheter. CT evaluation is an alternative if clinically warranted. Dysplastic left acetabulum. Mild degenerative joint disease. Reading Location: [id number] Abdomen/Pelvis CT 11/19/25 02:27 IMPRESSION: Suprapubic catheter is in good position with its tip in the bladder. Contrast is noted in the bladder. No other significant interval change is noted. Reading Location: [id number] Discharge Plan Triage Chief Complaint: Complaint ED Provider: Yoly Lerner Dx/Rx/DC Orders Clinical Impression: Migration of suprapubic catheter Instructions: Suprapubic Catheter Dc Prescriptions: No Action aspirin 81 mg Tablet,Delayed Release (Dr/Ec) 81 mg PO DAILY baclofen 20 mg Tablet 40 mg PO BID nitroglycerin 2 % Ointment 1 inch TRANSDERMAL PRN PRN (Reason: autonomic dysreflexia) cholecalciferol (vitamin D3) [Vitamin D3] 25 mcg (1,000 unit) Capsule 25 mcg PO DAILY docusate sodium 100 mg Capsule 100 mg PO TID PRN (Reason: stool softener) escitalopram oxalate 20 mg Tablet 20 mg PO DAILY methenamine hippurate [Hiprex] 1 gram tablet 1 g PO Q12H Rx Instructions: can be continued indefinitely. For UTI prevention. ondansetron 4 mg tablet,disintegrating 8 mg PO Q8H PRN PRN (Reason: Nausea) Qty: 20 0RF hydroxyzine HCl 50 mg tablet 50 mg PO QHS PRN PRN (Reason: anxiety) ferrous sulfate [FeroSul] 325 mg (65 mg iron) tablet 325 mg PO QODAY nystatin 100,000 unit/gram powder 1 applic topical BID PRN PRN (Reason: rash) tizanidine 4 mg tablet 4 mg PO BID folic acid 1 mg tablet 1 mg PO DAILY Patient Comments: TAKES EVERY OTHER DAY OF 08/26/25 ascorbic acid (vitamin C) 500 mg tablet 500 mg PO QODAY cefdinir 300 mg capsule 300 mg PO BID Qty: 10 0RF nitrofurantoin monohyd/m-cryst [Macrobid] 100 mg capsule 100 mg PO BID 7 Days Qty: 14 0RF Rx Instructions: must administer with a meal/food acetic acid 0.25 % Solution 1,000 ml irrigation DAILY Qty: 6000 0RF Primary Care Provider: Dao Paulino Referrals: Dao Paulino MD [Primary Care Provider, Family Practice] Print Language: Ivorian Disposition Disposition: Home, Self Care
[2025-11-19 02:51] VITALS: BP 106/57; PULSE 89; RESP 18; TEMP 36.6; O2SAT 100
[2025-11-19 04:04] VITALS: BP 102/60; PULSE 86; RESP 18; TEMP 36.4; O2SAT 100
== END 2025-11-19 06:44 | disposition home or self-care (01) ==
PROVIDERS: Emergency Provider Specialist/Technologist Athletic Trainer; PCP Family Medicine; Visit Provider Specialist/Technologist Athletic Trainer
DX: T83.021A Displacement of indwelling urethral catheter, initial encounter (principal); Z87.891 Personal history of nicotine dependence; Y73.8 Miscellaneous gastroenterology and urology devices associated with adverse incidents, not elsewhere classified
CPT/HCPCS: 72170; 74176; 99284